=== PATIENT | female | born 1950 | race Caucasian/White ===

== ENCOUNTER → 2017-01-28 | Outpatient (CLI) | payer BC ==
--- NOTE | 2017-01-29 07:38 | MAMMOGRAPHY REPORT ---
BILATERAL DIGITAL SCREENING MAMMOGRAM TOMOSYNTHESIS WITH CAD: 01/28/2017 CLINICAL HISTORY: Routine screening. Patient has no complaints. TECHNIQUE: Breast tomosynthesis in addition to standard 2D mammography was performed. Current study was also evaluated with a Computer Aided Detection (CAD) system. COMPARISON: Comparison is made to exams dated: 12/07/2015 mammogram, 07/20/2013 mammogram, 08/09/2014 mammogram, 07/16/2012 mammogram, 07/15/2011 mammogram, and 07/13/2010 mammogram - [facility]. BREAST COMPOSITION: The tissue of both breasts is heterogeneously dense, which may obscure small ma sses. FINDINGS: There is evidence of prior surgery within each breast, with multiple surgical clips seen b ilaterally. There is expected architectural distortion at the site of prior surgery within the retr oareolar and central right breast, and upper outer posterior left breast. There are benign appearin g coarse calcifications bilaterally. No new suspicious mass, architectural distortion or cluster of microcalcifications is seen. IMPRESSION: ACR BI-RADS CATEGORY 1: NEGATIVE There is no mammographic evidence of malignancy. A 1 year screening mammogram is recommended. The p atient will receive written notification of the results. Approximately 10% of breast cancers are not detected with mammography. A negative mammographic repor t should not delay biopsy if a clinically suggestive mass is present. Naida Monte M.D. ay/:01/28/2017 17:46:12 Medical Malpractice Paralegal: Janet RICHARD(Lois)(Shiraz), [facility] letter sent: Normal 1/2 BI-RADS Code: ACR BI-RADS Category 1: Negative
== END | disposition home or self-care (01) ==
LOC: C.MAMM 09:51
PROVIDERS: ATTEND Internal Medicine
DX: Z12.31 Encounter for screening mammogram for malignant neoplasm of breast (principal); Z85.3 Personal history of malignant neoplasm of breast

== ENCOUNTER 2022-01-06 13:00 | Inpatient (IN) ==
[2022-01-06] MEDS ORDERED: ONDANSETRON INJ 2 MG/ML 2 ML VIAL IV STA (13:12)
[2022-01-06] MEDS: HYDROmorphone INJ 0.5 MG/0.5 ML SYR IV PRN ×2 (13:37→14:33)
[2022-01-06 13:47] LABS: Basophils # (auto) 0.04 K/uL (0-0.2); Basophils % (auto) 0.3 %; Eosinophils # (auto) 0.29 K/uL (0-0.5); Eosinophils % (auto) 2.3 %; Hematocrit (blood only) 40.3 % (37-47); Hemoglobin 14.1 g/dL (12.0-16.0); Immature Granulocytes # (auto) 0.11 K/uL (0.00-0.02); Immature Granulocytes % (auto) 0.9 %; Lymphocytes # (auto) 0.92 K/uL (1.2-3.4); Lymphocytes % (auto) 7.2 %; Mean Corpuscular Hemoglobin 37.5 pg (25-34); Mean Corpuscular Volume 107.2 fL (80-100); Mean Platelet Volume 10.1 fL (7.4-10.4); Monocytes # (auto) 0.96 K/uL (0.11-0.59); Monocytes % (auto) 7.5 %; Neutrophils # (auto) 10.49 K/uL (1.4-6.5); Neutrophils % (auto) 81.8 %; Platelet Count 402 K/uL (130-400); RDW Coefficient of Variation 14.3 % (11.5-14.5); RDW Standard Deviation 56.2 fL (36.4-46.3); Red Blood Count 3.76 M/uL (4.2-5.4); White Blood Count 12.81 K/uL (4.8-10.8)
[2022-01-06 14:05] LABS: Albumin Globulin Ratio 1.2 (0.9-2); Albumin Level 3.7 gm/dl (3.4-5.0); BUN Creatinine Ratio 20.5 (10-20); Bilirubin,Total 0.8 mg/dl (0.2-1.0); C Reactive Protein 12.04 mg/dl (0-0.5); Calcium 9.1 mg/dl (8.5-10.1); Creatinine Clr Calc Pharmacy 80.1 ml/min; Est GFR (African American) 83.4 ml/min; Est GFR (Non-African American) 71.9 ml/min; Globulin 3.2 gm/dl (2.5-4.0); Potassium 2.8 mmol/L (3.5-5.1); Total Protein 6.9 gm/dl (6.0-8.3)
--- NOTE | 2022-01-06 14:05 | CT Scan Report ---
CT lumbar spine wo con CLINICAL HISTORY: Back Pain, right sciatica TECHNIQUE: Multidetector row helical CT of the lumbar spine was performed without administration of i ntravenous contrast. Coronal and sagittal reformations were obtained. Automated dose lowering techniq ues and/or adjustment according to patient size were utilized for this exam. Comparison: None available at the time of this dictation. FINDINGS: For counting purposes, the last complete intervertebral disc space is considered L5-S1. There is an erosive lesion in the sacrum, predominantly in the left sacrum, with a soft tissue mass i nvading the spinal canal. There is a fracture of the right transverse process of L5 as well as appare nt fractures of the bilateral sacral alar. There is mottling of the adjacent iliac bones as well. Deg enerative changes are noted in the visualized spine. Vertebral body alignment is within normal limits . IMPRESSION: There is a large soft tissue mass arising from the sacrum with invasion of the spinal canal. There ap pears to also be involvement of the adjacent iliac bone. There are fractures of the right T5 vertebra l body and bilateral sacral alar, which may represent pathologic fractures. ACT 112: Negative or not required by law. Electronically signed by: Joseph Longoria M.D. 01/06/2022 2:04 PM
--- NOTE | 2022-01-06 14:37 | XRay Report ---
XR femur RT 2V routine CLINICAL HISTORY: non-traumatic mid femur pain, cant walk TECHNIQUE: 2 radiographic views of the right femur were obtained. Comparison: None available at the time of this dictation. FINDINGS: There is no evidence for fracture, subluxation or dislocation. There is normal anatomic alignment of the bones. Degenerative changes are seen in the hip and knee joints. There is normal bone mineralizat ion. The soft tissues are unremarkable. IMPRESSION: Degenerative changes without evidence of acute bony injury. ACT 112: Negative or not required by law. Electronically signed by: Joseph Longoria M.D. 01/06/2022 2:36 PM
[2022-01-06 14:47] LABS: Appearance Urine Cloudy (Clear); Bacteria Urine Automated 1+ (Negative); Blood Urine 1+ (Negative); Color Urine Dark Yellow; Epithelial Cell Urine Auto >30 /lpf (0-5); Glucose Urine UA Negative (Negative); Ketones Urine 1+ (Negative); Leukocyte Esterase Urine Trace (Negative); Nitrite Urine Negative (Negative); Protein Urine 1+ (Negative); Specific Gravity Urine 1.031 (1.000-1.030); Urobilinogen Urine Negative (Negative)
[2022-01-06 14:51] LABS: Bilirubin Urine 2+ (Negative)
[2022-01-06 15:04] LABS: Cast Urine Automated 0 /lpf (0-5); RBC Urine Automated 0-4 /hpf (0-4); Renal Epithelial Cells Urine 0-5 /lpf (0-5)
[2022-01-06] MEDS ORDERED: cefTRIAXone SODIUM 2,000 MG/70 ML BAG IV STA (15:55)
[2022-01-06] MEDS ORDERED: bisacodyL 10 MG SUPP PR PRN (17:09)
[2022-01-06] MEDS ORDERED: ONDANSETRON INJ 2 MG/ML 2 ML VIAL IV PRN (17:09)
[2022-01-06] MEDS ORDERED: NALOXONE HCL 0.4 MG/1 ML VIAL/CARP IV PRN (17:09)
[2022-01-06] MEDS ORDERED: MAGNESIUM HYDROXIDE SUSP 30 ML UDC PO PRN (17:09)
--- NOTE | 2022-01-06 17:57 | Emergency Department Note ---
Impression & Plan Pathological fracture of pelvis, Pathological fracture of lumbosacral spine, Acute UTI (urinary tract infection), Leukocytosis, History of breast cancer ED Provider Note INFORMANT: Patient ED PROVIDER(S): Oni Church MD CHIEF COMPLAINT: Right leg pain PLAN: Disposition: Admitted Condition: Good Outpatient prescription management: none Referral: None MEDICAL DECISION MAKING: Patient presented because of concerns about sciatica. She was having difficulty walking. She had no saddle anesthesia. With the positive right straight leg raise imaging was ordered. She had CT imaging performed of the lumbar spine and there were concerns for possible pathologic erosion and fracture. The patient does have a history of breast cancer. She was treated with Dilaudid and felt much better with this. She has findings concerning for UTI and has a mild leukocytosis. Rocephin was ordered. I did discuss the possibility of cancer with the patient. Further management in the hospital will be necessary. [facility]. Patient was evalu ated in the ER and admitted for further management. Triage Nursing notes reviewed and agree them. Vital Signs: reviewed and remarkable for no significant abnormalities Differential diagnosis: Musculoskeletal, disc herniation, fracture, metastatic disease, cord compression, discitis, sciatica, cauda equina, infection, aortic disease, renal colic, gastrointestinal, as well as other pathologies. Diagnostics interpreted by me: ECG: none Cardiac Monitoring: Cardiac monitoring ordered by me: The patient was placed on continuous cardiac monitoring and observed. It revealed a normal sinus rhythm at 85beats per minute without ectopy or evidence of dysrhythmia. Imaging studies: CT scan as noted below. HPI: The patient is a 71 year old female who presents to the Emergency Room with complaints of right-sided leg pain. This started over the last week and is worsening to the point that she cannot walk. EMS was summoned. The patient also notes the following associated symptoms, urinary frequency. The patient has found no relieving factors. Patient was prescribed an anti-inflammatory and then hydrocodone by PCP but this was not helping. Current pain is rated as 10/10. No trauma.Pt denies LOC, headache, fevers, chills, diaphoresis, visual changes, neck pain, chest pain, breathing difficulties, nausea, vomiting, abdominal pain, back pain melena, hematochezia, numbness, lymphadenopathy, rash , or other complaints. ROS: See above HPI for pertinent positives & negatives. A total of 10 systems reviewed and were otherwise negative. PAST MEDICAL HISTORY:See Below , breast cancer PAST SURGICAL HISTORY:See Below, FAMILY HISTORY:See Below SOCIAL HISTORY:See Below, lives with son HOME MEDICATIONS:See Below ALLERGIES:See Below VITALS:See Below PHYSICAL EXAMINATION: GENERAL: Awake, alert, uncomfortable-appearing, in no distress HENT: Normocephalic, atraumatic. Oropharynx unremarkable. EYES: Normal conjunctiva. Sclera non-icteric. NECK: Inspection normal. Non-tender. Supple. No nuchal rigidity. FROM. No masses. RESPIRATORY: Clear to auscultation. No wheezes. No rales. Normal respiratory effort. CARDIAC: Normal rate. Normal rhythm. No murmurs. No rubs. Extremities warm and well perfused. Pulses equal. No JVD. GI: Soft, non-distended. No tenderness to palpation. No rebound or guarding. No masses. RECTAL: Deferred. MUSCULOSKELETAL: Atraumatic. Chest examination reveals no tenderness. The back is symmetrical on inspection without obvious abnormality. There is no CVA tenderness to palpation. No joint edema. Mild tenderness of the posterior right thigh. Decent range of motion of the right hip. LOWER EXTREMITIES: Calves are equal size bilaterally and non-tender. No edema. No discoloration. NEURO: Normal sensorium. No sensory or motor deficits noted. Positive right straight leg raise. No saddle anesthesia. SKIN: No rash or jaundice noted. 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 Feels Safe at Home: Yes Seatbelt Use: always Sunscreen Use: Yes Assistive Devices: Glasses Allergies Allergies Allergy/AdvReac Type Severity Reaction Status Date / Time No Known Allergies Allergy Unknown Verified 01/06/22 15:04 Home Meds Home Medications Medication Instructions Recorded Confirmed cholecalciferol (vitamin D3) 50 50 mcg PO QAM 01/06/22 01/06/22 mcg (2,000 unit) capsule metformin 500 mg tablet 500 mg PO QAM 01/06/22 01/06/22 rosuvastatin 5 mg tablet 5 mg PO QAM 01/06/22 01/06/22 Previous Rx's Medication Instructions Recorded omeprazole 20 mg capsule,delayed 20 mg PO QAM #90 cap 03/12/21 release losartan 100 mg tablet 100 mg PO QAM #90 tab 03/28/21 metoprolol succinate 100 mg 100 mg PO QAM #30 tab 06/19/21 tablet,extended release 24 hr clonazepam 0.5 mg tablet 0.5 mg PO UD PRN #90 tab 01/03/22 hydrocodone 5 mg-acetaminophen 325 See Rx Instructions PO Q6H PRN #40 01/03/22 mg tablet tab Results & Data (ED) Vital Signs Vital Signs - 24 hr 01/06/22 13:06 01/06/22 13:14 01/06/22 13:30 Temperature 36.5 C Temperature Source Oral Pulse Rate 100 H 93 H 99 H Pulse Rate [Right Radial] Pulse Rate from SpO2 Sensor 93 H 99 H Pulse Rhythm [Right Radial] Pulse Strength [Right Radial] Respiratory Rate 22 16 18 Respiratory Effort / Characteristics Non-Labored Respiratory Depth Normal Blood Pressure 179/109 H 163/95 H Blood Pressure [Left Arm] Blood Pressure [Right Arm] Blood Pressure Mean 132 117 Blood Pressure Mean [Left Arm] Blood Pressure Mean [Right Arm] Blood Pressure Position Lying Pulse Oximetry 98 96 98 Oxygen Delivery Method Room Air Sepsis Recent Fever Within 48 Hours No Sepsis New/Unexplained Change in Mental Status No Sepsis Action Taken by Nursing No Action Required 01/06/22 14:30 01/06/22 14:31 01/06/22 14:42 Temperature Temperature Source Pulse Rate 102 H Pulse Rate [Right Radial] Pulse Rate from SpO2 Sensor 103 H 102 H Pulse Rhythm [Right Radial] Pulse Strength [Right Radial] Respiratory Rate 21 Respiratory Effort / Characteristics Respiratory Depth Blood Pressure 158/113 H Blood Pressure [Left Arm] Blood Pressure [Right Arm] Blood Pressure Mean 128 Blood Pressure Mean [Left Arm] Blood Pressure Mean [Right Arm] Blood Pressure Position Pulse Oximetry 99 95 98 Oxygen Delivery Method Room Air Sepsis Recent Fever Within 48 Hours Sepsis New/Unexplained Change in Mental Status Sepsis Action Taken by Nursing 01/06/22 15:00 01/06/22 16:24 Temperature 36.4 C L 36.8 C Temperature Source Oral Oral Pulse Rate Pulse Rate [Right Radial] 89 85 Pulse Rate from SpO2 Sensor Pulse Rhythm [Right Radial] Regular Pulse Strength [Right Radial] Normal Respiratory Rate 20 18 Respiratory Effort / Characteristics Non-Labored Non-Labored Respiratory Depth Normal Normal Blood Pressure Blood Pressure [Left Arm] 137/75 Blood Pressure [Right Arm] 136/79 Blood Pressure Mean Blood Pressure Mean [Left Arm] 95 Blood Pressure Mean [Right Arm] 98 Blood Pressure Position Pulse Oximetry 97 98 Oxygen Delivery Method Room Air Room Air Sepsis Recent Fever Within 48 Hours Sepsis New/Unexplained Change in Mental Status Sepsis Action Taken by Nursing Laboratory Data Result diagrams: 01/06/22 13:39 01/06/22 13:39 Lab Results 01/06/22 01/06/22 01/06/22 Range/Units 13:39 13:39 13:39 WBC 12.81 H (4.8-10.8) K/uL RBC 3.76 L (4.2-5.4) M/uL Hgb 14.1 (12.0-16.0) g/dL Hct 40.3 (37-47) % MCV 107.2 H (80-100) fL MCH 37.5 H (25-34) pg MCHC 35.0 (32-36) g/dL RDW Std Deviation 56.2 H (36.4-46.3) fL RDW Coeff of Cheri 14.3 (11.5-14.5) % Plt Count 402 H (130-400) K/uL MPV 10.1 (7.4-10.4) fL Immature Gran % (Auto) 0.9 % Neut % (Auto) 81.8 % Lymph % (Auto) 7.2 % [place] % (Auto) 7.5 % Eos % (Auto) 2.3 % Baso % (Auto) 0.3 % Neut # (Auto) 10.49 H (1.4-6.5) K/uL Lymph # (Auto) 0.92 L (1.2-3.4) K/uL [place] # (Auto) 0.96 H (0.11-0.59) K/uL Eos # (Auto) 0.29 (0-0.5) K/uL Baso # (Auto) 0.04 (0-0.2) K/uL Immature Gran # (Auto) 0.11 H (0.00-0.02) K/uL ESR 40 H (0-30) mm/hr Sodium 139 (136-145) mmol/L Potassium 2.8 L (3.5-5.1) mmol/L Chloride 101 (98-107) mmol/L Carbon Dioxide 26 (21-32) mmol/L Anion Gap 12 H (3-11) BUN 17 (6-23) mg/dl Creatinine 0.83 (0.6-1.2) mg/dl Est Cr Clr Drug Dosing 80.1 ml/min Est GFR ( Amer) 83.4 ml/min Est GFR (Non-Af Amer) 71.9 ml/min BUN/Creatinine Ratio 20.5 H (10-20) Glucose 94 (70-99(Fasting)) mg/dl Calcium 9.1 (8.5-10.1) mg/dl Total Bilirubin 0.8 (0.2-1.0) mg/dl AST 18 (13-39) U/L ALT 11 (7-52) U/L Alkaline Phosphatase 128 H (34-104) U/L C-Reactive Protein 12.04 H (0-0.5) mg/dl Total Protein 6.9 (6.0-8.3) gm/dl Albumin 3.7 (3.4-5.0) gm/dl Globulin 3.2 (2.5-4.0) gm/dl Albumin/Globulin Ratio 1.2 (0.9-2) Urine Color Urine Appearance (Clear) Urine pH (4.5-7.5) Ur Specific [place] (1.000-1.030) Urine Protein (Negative) Urine Glucose (UA) (Negative) Urine Ketones (Negative) Urine Blood (Negative) Urine Nitrite (Negative) Urine Bilirubin (Negative) Urine Urobilinogen (Negative) Ur Leukocyte Esterase (Negative) Urine WBC (Auto) (0-5) /hpf Urine RBC (Auto) (0-4) /hpf U Hyaline Cast (Auto) (0-5) /lpf U Epithel Cells (Auto) (0-5) /lpf Urine Bacteria (Auto) (Negative) Ur Renal Epithelial Cell (0-5) /lpf Urine Yeast (None Prsent) 01/06/22 Range/Units 14:30 WBC (4.8-10.8) K/uL RBC (4.2-5.4) M/uL Hgb (12.0-16.0) g/dL Hct (37-47) % MCV (80-100) fL MCH (25-34) pg MCHC (32-36) g/dL RDW Std Deviation (36.4-46.3) fL RDW Coeff of Cheri (11.5-14.5) % Plt Count (130-400) K/uL MPV (7.4-10.4) fL Immature Gran % (Auto) % Neut % (Auto) % Lymph % (Auto) % [place] % (Auto) % Eos % (Auto) % Baso % (Auto) % Neut # (Auto) (1.4-6.5) K/uL Lymph # (Auto) (1.2-3.4) K/uL [place] # (Auto) (0.11-0.59) K/uL Eos # (Auto) (0-0.5) K/uL Baso # (Auto) (0-0.2) K/uL Immature Gran # (Auto) (0.00-0.02) K/uL ESR (0-30) mm/hr Sodium (136-145) mmol/L Potassium (3.5-5.1) mmol/L Chloride (98-107) mmol/L Carbon Dioxide (21-32) mmol/L Anion Gap (3-11) BUN (6-23) mg/dl Creatinine (0.6-1.2) mg/dl Est Cr Clr Drug Dosing ml/min Est GFR ( Amer) ml/min Est GFR (Non-Af Amer) ml/min BUN/Creatinine Ratio (10-20) Glucose (70-99(Fasting)) mg/dl Calcium (8.5-10.1) mg/dl Total Bilirubin (0.2-1.0) mg/dl AST (13-39) U/L ALT (7-52) U/L Alkaline Phosphatase (34-104) U/L C-Reactive Protein (0-0.5) mg/dl Total Protein (6.0-8.3) gm/dl Albumin (3.4-5.0) gm/dl Globulin (2.5-4.0) gm/dl Albumin/Globulin Ratio (0.9-2) Urine Color Dark Yellow Urine Appearance Cloudy A (Clear) Urine pH 5.0 (4.5-7.5) Ur Specific [place] 1.031 H (1.000-1.030) Urine Protein 1+ H (Negative) Urine Glucose (UA) Negative (Negative) Urine Ketones 1+ H (Negative) Urine Blood 1+ H (Negative) Urine Nitrite Negative (Negative) Urine Bilirubin 2+ H (Negative) Urine Urobilinogen Negative (Negative) Ur Leukocyte Esterase Trace H (Negative) Urine WBC (Auto) 5-10 H (0-5) /hpf Urine RBC (Auto) 0-4 (0-4) /hpf U Hyaline Cast (Auto) 0 (0-5) /lpf U Epithel Cells (Auto) >30 H (0-5) /lpf Urine Bacteria (Auto) 1+ H (Negative) Ur Renal Epithelial Cell 0-5 (0-5) /lpf Urine Yeast Present A (None Prsent) Administered Medications Oxycodone HCl (Oxycodone Hcl Ir 5 Mg Tab (Immediate Release)) 10 mg PO Q4H PRN PRN Reason: SEVERE Pain (7,8,9,10) Stop: 01/20/22 18:38 Last Admin: 01/06/22 19:30 Dose: 10 mg Documented by: [id number] Discontinued Medications Hydromorphone HCl (Hydromorphone Inj 0.5 Mg/0.5 Ml Syr) 0.5 mg IV Q15M PRN PRN Reason: Pain Stop: 01/20/22 13:11 Last Admin: 01/06/22 14:33 Dose: 0.5 mg Documented by: [id number] Admin: 01/06/22 13:37 Dose: 0.5 mg Documented by: [id number] Ceftriaxone Sodium (Rocephin) 2,000 mg in 70 mls @ 140 mls/hr IV NOW STA Stop: 01/06/22 16:24 Last Infusion: 01/06/22 19:29 Dose: 0 mls/hr Documented by: [id number] Admin: 01/06/22 17:49 Dose: 140 mls/hr Documented by: [id number] Ondansetron HCl (Ondansetron Inj 2 Mg/Ml 2 Ml Vial) 4 mg IV NOW STA Stop: 01/06/22 13:13 Last Admin: 01/06/22 13:37 Dose: 4 mg Documented by: [id number] Imaging Data Radiologist's Impression: Femur X-Ray 01/06/22 13:12 XR femur RT 2V routine CLINICAL HISTORY: non-traumatic mid femur pain, cant walk TECHNIQUE: 2 radiographic views of the right femur were obtained. Comparison: None available at the time of this dictation. FINDINGS: There is no evidence for fracture, subluxation or dislocation. There is normal anatomic alignment of the bones. Degenerative changes are seen in the hip and knee joints. There is normal bone mineralization. The soft tissues are unremarkable. IMPRESSION: Degenerative changes without evidence of acute bony injury. ACT 112: Negative or not required by law. Electronically signed by: Joseph Longoria M.D. 01/06/2022 2:[address] 01/06/22 13:13 CT lumbar spine wo con CLINICAL HISTORY: Back Pain, right sciatica TECHNIQUE: Multidetector row helical CT of the lumbar spine was performed without administration of intravenous contrast. Coronal and sagittal reformations were obtained. Automated dose lowering techniques and/or adjustment according to patient size were utilized for this exam. Comparison: None available at the time of this dictation. FINDINGS: For counting purposes, the last complete intervertebral disc space is considered L5-S1. There is an erosive lesion in the sacrum, predominantly in the left sacrum, with a soft tissue mass invading the spinal canal. There is a fracture of the right transverse process of L5 as well as apparent fractures of the bilateral sacral alar. There is mottling of the adjacent iliac bones as well. Degenerative changes are noted in the visualized spine. Vertebral body alignment is within normal limits. IMPRESSION: There is a large soft tissue mass arising from the sacrum with invasion of the spinal canal. There appears to also be involvement of the adjacent iliac bone. There are fractures of the right T5 vertebral body and bilateral sacral alar, which may represent pathologic fractures. ACT 112: Negative or not required by law. Electronically signed by: Joseph Longoria M.D. 01/06/2022 2:04 PM Discharge Plan Visit Data Chief Complaint: Hip Pain ED Provider: Oni Church Discharge Problem: Pathological fracture of pelvis, Pathological fracture of lumbosacral spine, Acute UTI (urinary tract infection), Leukocytosis, History of breast cancer Patient Disposition: Admitted As Inpatient Discharge Instructions Interventions: ED Discharge Assessment Last Done: 01/06/22 18:48
--- NOTE | 2022-01-06 18:21 | History & Physical Report ---
Date of Service January 06, 2022 Assessment & Plan (1) Pathological fracture of pelvis: Plan: 71 yo F w/ pMHx. of DM, HTN, HLD, Diverticulitis presenting with right hip pain, numbness and weakness without bladder or bowel incontinence, or fevers found to have a mass involving her sacrum, ilium, spinal canal along with pathologic fracture at T6. Mass involving spinal canal, likely cause of progressive right hip pain, right leg numbness - pain control with Tylenol PRN, Oxycodone PO PRN utilizing pain scale protocol; miralax PRN - Dexamethasone 4mg IV now - consulted ortho spine appreciate recs. - reviewed case with PA for spine and Dr. 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 DM II - A1c ordered - holding oral agents - placed pharmacy glycemic consult given steroid use HTN normotensive currently - continue home Metoprolol - continue home losartan HLD - continue rosuvastatin Reflux, and steroid use - continue Omeprazole UA with epithelial cells and no dysuria or urgency - likely contaminant vs. asymptomatic bacteruria - follow symptoms and culture leukocytosis, afebrile normal HR - likely elevated in the setting of steroid use prior to admission DVT: holding chemoprophylaxis prior to ortho evaluation Diet: DMII Code: full (2) Pathological fracture of lumbosacral spine: (3) History of breast cancer: (4) Vitamin D deficiency: (5) Hypertension: (6) Depression with anxiety: (7) Hyperlipidemia: (8) Type II diabetes mellitus: (9) Mild mitral valve prolapse: (10) History of bilateral breast cancer: (11) Diverticulitis: (12) Seasonal allergies: (13) Acid reflux: History of Present Illness Chief Complaint: Right hip pain Primary Care Provider: MARKUS Cabezas Harmony James is here for right hip pain that started one week prior. She has a prior history of DM, HTN, Diverticulitis and HLD along with breast cancer in 2002 s/p lumpectomy, chemotherapy and radiation therapy. Her pain has been severe and progressive 1/10 when laying still and 10/10 pain when she moves. The pain is at the at her lower hip and top of her right thigh. This feels similar to when she had sciatica in the past. The pain radiates to her right leg. She had called her PCP and was prescribed prednisone, hydrocodone and Voltaren with no improvement. She saw a chiropractor 2 days prior who recommended ice, and had no improvement with this. She has an extensive smoking history and no family history of cancer. She is not UTD on pap smears, her last menstruation was in 2002 prior to starting chemotherapy. Allergies Allergy/AdvReac Type Severity Reaction Status Date / Time No Known Allergies Allergy Unknown Verified 01/06/22 15:04 Home Medications Medication Instructions Recorded Confirmed Type omeprazole 20 mg capsule,delayed 20 mg PO QAM #90 cap 03/12/21 01/06/22 Rx release losartan 100 mg tablet 100 mg PO QAM #90 tab 03/28/21 01/06/22 Rx metoprolol succinate 100 mg 100 mg PO QAM #30 tab 06/19/21 01/06/22 Rx tablet,extended release 24 hr clonazepam 0.5 mg tablet 0.5 mg PO UD PRN #90 tab 01/03/22 01/06/22 Rx hydrocodone 5 mg-acetaminophen 325 See Rx Instructions PO Q6H PRN #40 01/03/22 01/06/22 Rx mg tablet tab cholecalciferol (vitamin D3) 50 50 mcg PO QAM 01/06/22 01/06/22 History mcg (2,000 unit) capsule metformin 500 mg tablet 500 mg PO QAM 01/06/22 01/06/22 History rosuvastatin 5 mg tablet 5 mg PO QAM 01/06/22 01/06/22 History Past Med/Surg History Medical History Bilateral breast cancer [id number]--sx/chemo/radiation Depression with anxiety Diverticular disease Hyperlipidemia Hypertension Mild mitral valve prolapse hx of; 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 Feels Safe at Home: Yes Safety Concerns: Feels Safe At This Time Seatbelt Use: always Sunscreen Use: Yes Assistive Devices: None Review of Systems Review of Systems: Constitutional: denies fevers, chills, fatigue, vomiting, diaphoresis, weight loss admits night sweats Head: denies trauma, LOC, lightheadedness Neurologic: admits presyncope, tingling ENT: Denies rhinorrhea, stuffiness Cardiac: denies chest pain, palpitations, leg edema Pulm.: denies cough, shortness of breath, trouble breathing Heme: denies easy bruising GI: denies diarrhea, constipation : denies urgency, dysuria admits frequency MSK: admits pain Physical Exam Constitutional: WD/WN, vitals as above Eyes: PERRL, conjunctivae normal, anicteric sclerae ENMT: external ear and nose normal, oropharynx normal Neck: normal visual inspection Respiratory: normal respiratory effort, lungs clear to auscultation Cardiovascular: RRR, no murmur, no edema Gastrointestinal (Abdomen): normal bowel sounds, soft, nontender, no hepatosplenomegaly Musculoskeletal: - tender over the right hip/buttock leading to tenderness down the right leg - negative log roll - positive straight leg at 20 degrees - sensation intact to light touch in lower extremity of right - 5/5 strength in dorsiflexion, plantarflexion - decreased strength on hip flexion 2/2 pain Skin: no rashes, warm and dry Neurologic: awake Speech / Cognition: normal speech Motor/Sensory: no tremor Psychiatric: Orientation: alert Eye Contact: good eye contact Speech: normal rate/rhythm/volume of speech Affect: euthymic affect Thought Process: goal directed thought process Results & Data Results & Data ([facility]) Vital Signs (Past 12 Hours) Vital Signs Temp Pulse Pulse Resp BP BP Pulse Ox 01/06/22 15:00 36.4 C L 89 20 136/79 97 01/06/22 14:42 98 01/06/22 14:31 102 H 21 158/113 H 95 01/06/22 14:30 99 01/06/22 13:30 99 H 18 163/95 H 98 01/06/22 13:14 93 H 16 96 01/06/22 13:06 36.5 C 100 H 22 179/109 H 98 CBC Results Results Complete Blood Count Results: RBC 3.44 M/uL (4.2-5.4) L 01/07/22 WBC 12.73 K/uL (4.8-10.8) H 01/07/22 Hgb 13.3 g/dL (12.0-16.0) 01/07/22 Hct 37.0 % (37-47) 01/07/22 Plt Count 395 K/uL (130-400) 01/07/22 Chemistry ([facility]) Results [facility] Results: Sodium 140 mmol/L (136-145) 01/07/22 Potassium 4.0 mmol/L (3.5-5.1) 01/07/22 Chloride 102 mmol/L (98-107) 01/07/22 Carbon Dioxide 31 mmol/L (21-32) 01/07/22 Anion Gap 7 (3-11) 01/07/22 BUN 16 mg/dl (6-23) 01/07/22 Creatinine 0.85 mg/dl (0.6-1.2) 01/07/22 Glucose 110 mg/dl (70-99(Fasting)) H 01/07/22 Code Status & VTE Plan VTE Prophylaxis Plan VTE Prophylaxis will be ordered: Yes Supervising Physician Co-Signing Physician Notes Resident Physician Supervision Note: I independently interviewed and examined the patient and verified the steiner history and physical, reviewed labs and image studies and agree with resident Dr. Hook findings and care plan. Resident Activity Tracking Resident Involvement: Resident Care Provided Care Provided: Adult Hospital Medicine
[2022-01-06] MEDS ORDERED: clonazePAM 0.5 MG TAB PO PRN (18:39)
[2022-01-06] MEDS ORDERED: PHARMACY GLYCEMIC MGMT CONSULT PRN (18:39)
[2022-01-06] MEDS ORDERED: oxyCODONE HCL IR 5 MG TAB (IMMEDIATE RELEASE) PO PRN (18:39)
[2022-01-06] MEDS ORDERED: INSULIN HUMAN NPH SC ONE (19:00)
[2022-01-06] MEDS ORDERED: CARBOHYDRATES FOR HYPOGLYCEMIA PO PRN (19:00)
[2022-01-06] MEDS ORDERED: GLUCOSE 10 TABS/TUBE PO PRN (19:00)
[2022-01-06] MEDS ORDERED: GLUCOSE 40% GEL 15 GM TUBE PO PRN (19:00)
[2022-01-06] MEDS ORDERED: DEXTROSE 50% 50 ML SYRINGE IV PRN (19:00)
[2022-01-06] MEDS ORDERED: dexAMETHasone 4 MG in SYRINGE 0 ML IV ONE (19:00)
[2022-01-06] MEDS ORDERED: GLUCAGON FOR INJ 1 MG VIAL IM PRN (19:00)
[2022-01-06] MEDS: oxyCODONE HCL IR 5 MG TAB (IMMEDIATE RELEASE) PO PRN (19:30)
[2022-01-06] MEDS ORDERED: POTASSIUM CHLORIDE CRTAB 20 MEQ TABCR PO STA (19:33)
[2022-01-06] MEDS ORDERED: DEXAMETHASONE SOD INJ 4 MG/ML VIAL ONE (20:33)
[2022-01-06] MEDS ORDERED: ENOXAPARIN INJ 40 MG/0.4 ML SYR SQ SCH (21:00)
[2022-01-06] MEDS: INSULIN ASPART PER UNIT SC SCH ×2 (21:34→23:09)
[2022-01-06] MEDS: DOCUSATE SODIUM/SENNA 50/8.6MG TAB PO SCH (22:15)
[2022-01-07] MEDS ORDERED: TRANEXAMIC ACID / 0.7% NACL 1,000 MG/100 ML BAG IV SCH ×2 (06:00→06:30)
--- NOTE | 2022-01-07 07:28 | Medical Student Progress Note ---
Date of Service January 07, 2022 Assessment & Plan (1) Pathological fracture of lumbosacral spine: Plan: This is a 71 year old female with a history of T2DM, HTN, and breast cancer in 2002 s/p lumpectomy, chemo, and radiation therapy who presented for worsening R hip pain, found to have a sacral mass with fractures of the right T5 vertebral body and sacral ala on imaging. Right hip pain, likely secondary to new sacral mass and pathological vertebral and sacral fractures - pain well-controlled on dexamethasone, tylenol prn, oxycodone prn - ortho consulted - venous doppler 01/07 shows no evidence of DVT - NPO in anticipation of surgery - likely needs MRI New sacral mass on CT - concerning for malignancy in setting of smoking history and breast CA history - consider biopsy - waiting ortho recs as above - MRI potentially needed for surgical eval as above, may clarify mass - Chest CT in setting of smoking history Hypomagnesemia - Mg 1.7 - 64 mg Magnesium chloride - recheck in AM Low folate - in the setting of MCV 107.6 - Hgb 13.3, no anemic symptoms - replete Hypokalemia, resolved - 4.0 s/p 40 mEq KCl - 2.8 on admission - recheck in AM Chronic medical conditions T2DM: hold home HTN: continue home metoprolol and losartan HLD: continue home rosuvastatin GERD: continue home omeprazole DM II - A1c ordered - holding oral agents - placed pharmacy glycemic consult given steroid use UA with epithelial cells and no dysuria or urgency - likely contaminant vs. asymptomatic bacteruria - follow symptoms and culture DVT: holding chemoprophylaxis prior to ortho evaluation Diet: NPO Code: full (2) Pathological fracture of pelvis: (3) History of breast cancer: (4) Type II diabetes mellitus: (5) Hypertension: (6) Hyperlipidemia: Admission and Anticipated Discharge Date Admission Date: January 06, 2022 Supervising Attestation Resident attestation- I have separately interviewed and examined the patient, and discussed the case with MS4 Radha Pandey. I agree with her findings and care plan as above. Subjective Feels "ok" this morning. Pain not bothering her. Discussed her feelings about this new finding of sacral mass on CT. Review of Systems Review of Systems: per HPI Physical Exam Constitutional: WD/WN, vitals as above no acute distress Respiratory: normal respiratory effort, lungs clear to auscultation Cardiovascular: RRR, no murmur, no edema Results & Data ([facility]) Vital Signs (Past 12 Hours) Vital Signs Temp Pulse Pulse Pulse Resp BP BP 01/07/22 07:22 36.7 C 80 16 147/86 H 01/07/22 02:48 36.9 C 82 16 150/99 H 01/06/22 23:35 36.9 C 78 20 163/99 H 146/100 H 01/06/22 23:33 99 H 01/06/22 23:23 36.9 C 89 20 163/99 H 01/06/22 22:15 36.9 C 78 20 163/99 H 146/100 H Pulse Ox 01/07/22 07:22 94 01/07/22 02:48 97 01/06/22 23:35 94 01/06/22 23:33 01/06/22 23:23 91 01/06/22 22:15 94 Resident Activity Tracking Resident Involvement: Resident Care Provided Care Provided: Adult Hospital Medicine
[2022-01-07 08:11] LABS: Basophils # (auto) 0.02 K/uL (0-0.2); Basophils % (auto) 0.2 %; Eosinophils # (auto) 0.04 K/uL (0-0.5); Eosinophils % (auto) 0.3 %; Hemoglobin 13.3 g/dL (12.0-16.0); Immature Granulocytes # (auto) 0.12 K/uL (0.00-0.02); Immature Granulocytes % (auto) 0.9 %; Lymphocytes % (auto) 7.9 %; Mean Corpuscular Hemoglobin 38.7 pg (25-34); Mean Corpuscular Hgb Conc 35.9 g/dL (32-36); Mean Corpuscular Volume 107.6 fL (80-100); Mean Platelet Volume 10.2 fL (7.4-10.4); Monocytes # (auto) 0.85 K/uL (0.11-0.59); Monocytes % (auto) 6.7 %; Platelet Count 395 K/uL (130-400); RDW Coefficient of Variation 14.4 % (11.5-14.5); RDW Standard Deviation 56.7 fL (36.4-46.3); Red Blood Count 3.44 M/uL (4.2-5.4); White Blood Count 12.73 K/uL (4.8-10.8)
--- NOTE | 2022-01-07 08:17 | Ultrasound Report ---
US venous doppler LE BI CLINICAL HISTORY: leg pain COMPARISON: None available at the time of this dictation. TECHNIQUE: Bilateral lower extremity real-time compression venous ultrasound with Color Doppler imagi ng. Utilizing real-time ultrasonic imaging multiple real time high-resolution ultrasonic images with comp ression and noncompression maneuvers of the deep venous system in addition to color doppler imaging w ere performed from the common femoral vein through the proximal calf veins. FINDINGS: Currently there is normal compressibility of the deep venous system from the common femoral vein thro ugh the proximal calf veins. No current evidence of acute thrombosis is identified. Impression: No evidence of deep venous thrombus. ACT 112: Negative or not required by law. Electronically signed by: Joseph Longoria M.D. 01/07/2022 8:16 AM
[2022-01-07] MEDS ORDERED: POTASSIUM CHLORIDE / WTR 10 MEQ/100 ML PLCT IV SCH (08:30)
[2022-01-07 08:44] LABS: Albumin Globulin Ratio 1.2 (0.9-2); Albumin Level 3.6 gm/dl (3.4-5.0); BUN Creatinine Ratio 18.8 (10-20); Bilirubin,Total 0.5 mg/dl (0.2-1.0); Calcium 9.1 mg/dl (8.5-10.1); Creatinine Clr Calc Pharmacy 62.9 ml/min; Est GFR (Non-African American) 69.9 ml/min; Globulin 3.1 gm/dl (2.5-4.0); Total Protein 6.7 gm/dl (6.0-8.3)
[2022-01-07] MEDS ORDERED: METOPROLOL SUCC 50MG EXT REL TAB PO SCH (09:00)
[2022-01-07] MEDS ORDERED: POTASSIUM CHLORIDE CRTAB 20 MEQ TABCR PO SCH (09:00)
[2022-01-07] MEDS ORDERED: metFORMIN HCL 500 MG TAB PO SCH (09:00)
[2022-01-07] MEDS ORDERED: CHOLECALCIFEROL 1,000 UNITS 25 MCG TAB PO SCH (09:00)
[2022-01-07] MEDS ORDERED: ROSUVASTATIN CALCIUM 5 MG TAB PO SCH (09:00)
[2022-01-07] MEDS ORDERED: PANTOprazole 40 MG TAB PO SCH (09:00)
[2022-01-07] MEDS: INSULIN ASPART PER UNIT SC SCH ×4 (09:07→20:28)
[2022-01-07] MEDS ORDERED: MAGNESIUM CHLORIDE 64MG DELAYED REL TAB PO SCH (09:30)
[2022-01-07 09:36] LABS: Folate (Folic Acid) 2.49 ng/ml (>5.38)
[2022-01-07] MEDS: oxyCODONE HCL IR 5 MG TAB (IMMEDIATE RELEASE) PO PRN ×3 (09:53→17:17)
[2022-01-07] MEDS ORDERED: OPTIRAY 320 100ml IV ONE (10:50)
[2022-01-07 11:12] LABS: Estimated Average Glucose 117 mg/dl; Hemoglobin A1C 5.7 % (4.5-5.6)
--- NOTE | 2022-01-07 11:18 | CT Scan Report ---
CT chest diagnostic w con CLINICAL HISTORY: Evaluate for lung mass TECHNIQUE: Multidetector row helical CT of the chest was performed. Coronal and sagittal reformations were obtained. Automated dose lowering techniques and/or adjustment according to patient size were u tilized for this exam. Comparison: Comparison is made to CT chest 06/07/2019 FINDINGS: Lungs and pleura: Scattered scarring changes are seen. Cystic lesion is seen in the left upper lobe. Scattered calcified granulomata are seen. In addition, there is a 3 mm noncalcified nodule in the rig ht upper lobe (series 4 image 150). Heart and pericardium: Heart size is normal. No pericardial effusion. Vessels: Unremarkable. Mediastinum and shannon: Unremarkable. Chest wall and lower neck: Subcentimeter thyroid nodules are noted which do not require follow-up by ACR criteria. Abdomen: Adrenal thickening and nodules are seen. A hypodensity is seen in the liver measuring up to 12 mm. A cyst is seen in the right kidney superior pole. Bones: Unremarkable. IMPRESSION: No evidence of pulmonary mass. ACT 112: Negative or not required by law. Electronically signed by: Joseph Longoria M.D. 01/07/2022 11:17 AM
--- NOTE | 2022-01-07 14:24 | Pharmacy Report ---
Pharmacy Glycemic Short Note 2 - Date of Service January 07, 2022 - Glycemic Short BSG Results (Last 24 hours): 01/06/22 01/06/22 01/07/22 20:31 22:27 07:14 Glucose 110 H POC Glucose 130 H 138 H 01/07/22 01/07/22 07:33 11:21 Glucose POC Glucose 111 H 123 H OUTPATIENT ANTIDIABETIC REGIMEN: * Metformin 500mg QAM (reports not taking) * HbA1c 5.7% on 01/07/22 ASSESSMENT: * Well controlled type II diabetic. Pharmacy consulted post surgery for glycemic control due to steroid use during surgery. No ongoing steroids ordered. * BSGs 94-130-138 on 01/06 and fasting this AM is 111 mg/dL. PLAN FOR INPATIENT GLYCEMIC CONTROL: * Hold outpatient oral diabetes medications * Basal insulin * Pharmacy entered NPH 15 units after surgery on 01/06, patient refused based on nursing record. * Bolus insulin * NovoLog per scale ACHS or Q6hrs while NPO * Goal Range: Low 110 mg/dL - High 140 mg/dL * Correction Factor: 20 mg/dL/unit * Nutritional / Prandial insulin per carb ratio of 1 unit per 7 grams CHO consumed * Will continue on sliding scale insulin as needed. Has not required any insulin at this point due to well controlled levels PLAN FOR DISCHARGE: * Restart metformin 500mg BID as per outpatient med list, unless contraindication present.
--- NOTE | 2022-01-07 14:25 | Orthopedic Consultation ---
Date of Consultation January 07, 2022 Assessment & Plan (1) Pathological fracture of pelvis: CAT scan of the pelvis does demonstrate a lytic lesion involving significant portions of the sacrum. There is obvious mass-effect. This undoubtedly is contributing to her neurologic symptoms and sciatica with standing. She is at risk for significant neural compression if further fractures occur or extension of the mass. At this point I recommend she consider evaluation at a tertiary care center as scope with any surgeries outside of our ability. History of Present Illness Reason for Consultation: Pelvic mass with right leg sciatica Attending Physician: Dean Mendoza DO History of Present Illness This is a very pleasant 71-year-old female that states she has had significant bouts of sciatica over the past week. She denies any trauma fall or event. She drives pain involving the right buttock posterior thigh extending down the knee. Is only limiting when standing and walking. Sitting and lying supine is very tolerable. She denies any left lower extremity pain. Denies any strength deficits or numbness or tingling while in bed. Allergies Allergy/AdvReac Type Severity Reaction Status Date / Time No Known Allergies Allergy Unknown Verified 01/06/22 15:04 Home Medications Medication Instructions Recorded Confirmed Type omeprazole 20 mg capsule,delayed 20 mg PO QAM #90 cap 03/12/21 01/06/22 Rx release losartan 100 mg tablet 100 mg PO QAM #90 tab 03/28/21 01/06/22 Rx metoprolol succinate 100 mg 100 mg PO QAM #30 tab 06/19/21 01/06/22 Rx tablet,extended release 24 hr clonazepam 0.5 mg tablet 0.5 mg PO UD PRN #90 tab 01/03/22 01/06/22 Rx hydrocodone 5 mg-acetaminophen 325 See Rx Instructions PO Q6H PRN #40 01/03/22 01/06/22 Rx mg tablet tab cholecalciferol (vitamin D3) 50 50 mcg PO QAM 01/06/22 01/06/22 History mcg (2,000 unit) capsule metformin 500 mg tablet 500 mg PO QAM 01/06/22 01/06/22 History rosuvastatin 5 mg tablet 5 mg PO QAM 01/06/22 01/06/22 History Patient History Medical History Bilateral breast cancer [id number]--sx/chemo/radiation Depression with anxiety Diverticular disease Hyperlipidemia Hypertension Mild mitral valve prolapse 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; 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 Sensory symmetric and intact. Negative logroll. No gross tension signs. Results & Data ([facility]) Vital Signs (Past 12 Hours) Vital Signs Temp Pulse Resp BP BP Pulse Ox 01/07/22 07:22 36.7 C 80 16 147/86 H 94 01/07/22 02:48 36.9 C 82 16 150/99 H 97
--- NOTE | 2022-01-07 16:23 | Billing Data ---
Date of Service January 07, 2022 Coding Level of Care Code 44725 Subseq Hosp Care Lvl 3
[2022-01-07] MEDS ORDERED: FOLIC ACID 1 MG TAB PO SCH (16:30)
[2022-01-07] MEDS: DOCUSATE SODIUM/SENNA 50/8.6MG TAB PO SCH (20:29)
--- NOTE | 2022-01-07 22:30 | Electrocardiogram Report ---
Test Reason : Blood Pressure : / mmHG Vent. Rate : 096 BPM Atrial Rate : 096 BPM P-R Int : 154 ms QRS Dur : 102 ms QT Int : 408 ms P-R-T Axes : 061 -71 100 degrees QTc Int : 515 ms Normal sinus rhythm Possible Left atrial enlargement Left anterior fascicular block Left ventricular hypertrophy with repolarization abnormality Prolonged QT Abnormal ECG No previous ECGs available Confirmed by Wilberto Lacey ([id number]) on 01/07/2022 10:30:28 PM Referred By: REFERRED SELF Confirmed By:Wilberto Lacey
[2022-01-08] MEDS: oxyCODONE HCL IR 5 MG TAB (IMMEDIATE RELEASE) PO PRN (03:05)
--- NOTE | 2022-01-08 11:47 | Discharge Summary ---
Date of Service January 08, 2022 Admission HPI Per Admitting Provider Harmony James is here for right hip pain that started one week prior. She has a prior history of DM, HTN, Diverticulitis and HLD along with breast cancer in 2003 s/p lumpectomy, chemotherapy and radiation therapy. Her pain has been severe and progressive 1/10 when laying still and 10/10 pain when she moves. The pain is at the at her lower hip and top of her right thigh. This feels similar to when she had sciatica in the past. The pain radiates to her right leg. She had called her PCP and was prescribed prednisone, hydrocodone and Voltaren with no improvement. She saw a chiropractor 2 days prior who recommended ice, and had no improvement with this. She has an extensive smoking history and no family history of cancer. She is not UTD on pap smears, her last menstruation was in 2002 prior to starting chemo therapy. Admission Exam Per Admitting Provider Constitutional: WD/WN, vitals as above Eyes: PERRL, conjunctivae normal, anicteric sclerae ENMT: external ear and nose normal, oropharynx normal Neck: normal visual inspection Respiratory: normal respiratory effort, lungs clear to auscultation Cardiovascular: RRR, no murmur, no edema Gastrointestinal (Abdomen): normal bowel sounds, soft, nontender, no hepatosplenomegaly Musculoskeletal: - tender over the right hip/buttock lead ing to tenderness down the right leg - negative log roll - positive straight leg at 20 degrees - sensation intact to light touch in low er extremity of right - 5/5 strength in dorsiflexion, plantarf lexion - decreased strength on hip flexion 2/2 pain Skin: no rashes, warm and dry Neurologic: awake Speech / Cognition: normal speech Motor/Sensory: no tremor Psychiatric: Orientation: alert Eye Contact: good eye contact Speech: normal rate/rhythm/volume of speech Affect: euthymic affect Thought Process: goal directed thought process Principal Diagnosis Soft tissue mass of sacroiliac spine Discharge Exam Constitutional: WD/WN, vitals as above Eyes: PERRL, conjunctivae normal, anicteric sclerae ENMT: external ear and nose normal, oropharynx normal Neck: normal visual inspection Respiratory: normal respiratory effort, lungs clear to auscultation Cardiovascular: RRR, no murmur, no edema Gastrointestinal (Abdomen): Soft, nontender, no hepatosplenomegaly Musculoskeletal: - tender over the right hip/buttock lead ing to tenderness down the right leg - negative log roll - positive straight leg at 20 degrees - sensation intact to light touch in low er extremity of right - 5/5 strength in dorsiflexion, plantarf lexion - decreased strength on hip flexion 2/2 pain Skin: no rashes, warm and dry Neurologic: awake Speech / Cognition: normal speech Motor/Sensory: no tremor Discharge Data Allergies Allergy/AdvReac Type Severity Reaction Status Date / Time No Known Allergies Allergy Unknown Verified 01/06/22 15:04 Consultations 01/06/22 18:39 Consult Orthopedic Surgery Routine 01/07/22 15:50 Burn CD for patient Routine 01/08/22 06:36 Burn CD for patient Routine Ordered Studies 01/06/22 13:13 CT lumbar spine wo con Stat 01/07/22 US venous doppler LE BI Routine 01/07/22 09:54 CT chest diagnostic w con Routine Hospital Course (1) Pathological fracture of lumbosacral spine: This is a 71 year old female with a history of T2DM, HTN, and breast cancer in 2002 s/p lumpectomy, chemo, and radiation therapy who presented for worsening R hip pain, found to have a sacral mass with fractures of the right T5 vertebral body and sacral ala on imaging. Right hip pain, likely secondary to new sacral mass and pathological vertebral and sacral fractures - pain well-controlled with dexamethasone, tylenol prn, oxycodone prn - XR R femur/hip negative for fracture - venous doppler 01/07- no evidence of DVT - concerning for malignancy in setting of smoking history and breast CA history - Chest CT in setting of smoking history- no evidence of pulmonary mass - Pt seen by orthopedics who recommended transfer to tertiary care given concern for malignancy which should be biopsied by spine/oncology/surgery. Pt transferred to [facility] [address] on 01/08 Hypomagnesemia - Mg 1.7 on admission, repleted Low folate - in the setting of MCV 107.6 - Hgb 13.3, no anemic symptoms Hypokalemia, resolved - 4.0 s/p 40 mEq KCl - 2.8 on admission Chronic medical conditions T2DM: hold home HTN: continue home metoprolol and losartan HLD: continue home rosuvastatin GERD: continue home omeprazole DM II - A1c ordered - holding oral agents - placed pharmacy glycemic consult given steroid use UA with epithelial cells and no dysuria or urgency - likely contaminant vs. asymptomatic bacteruria - follow symptoms and culture DVT: holding chemoprophylaxis prior to ortho evaluation Diet: NPO Code: full (2) Pathological fracture of pelvis: (3) History of breast cancer: (4) Type II diabetes mellitus: (5) Hypertension: (6) Hyperlipidemia: Total Time Total Time Spent Total Time Spent (In Minutes): 30 Discharge Plan Discharge Items Patient Disposition: Transfer Acute Care Hospital Reason For Visit: HIP PAIN Discharge Diagnosis: Soft tissue mass of sacroiliac spine Condition on Discharge: Fair Activity: Per Instructions section Non-emergency contact: Primary Care Provider Call non-emergency contact if: you have any medication questions, your symptoms worsen and your pain is not controlled Follow-up/Referrals: Judie Ojeda CRNP [Primary Care Provider] - Diet: Carb Consistent or DM2 Addtl Attending Provider Instructions: You are being transferred to [facility] for further evaluation and management of your spinal mass. This is because [facility] has spine oncology/surgery which our facility at [facility] does not. Below is your hospital course which should be read by your providers at [facility] [address]. Pathological fracture of lumbosacral spine: Plan: This is a 71 year old female with a history of T2DM, HTN, and breast cancer in 2002 s/p lumpectomy, chemo, and radiation therapy who presented for worsening R hip pain, found to have a sacral mass with fractures of the right T5 vertebral body and sacral ala on imaging. Right hip pain, likely secondary to new sacral mass and pathological vertebral and sacral fractures - pain well-controlled on dexamethasone, tylenol prn, oxycodone prn - ortho consulted- recommended tertiary care transfer due to concern for malignancy - venous doppler 01/07 shows no evidence of DVT New sacral mass on CT -concerning for malignancyin setting of smoking history and breast CA history - MRI potentially needed for surgical eval as above, may clarify mass - Chest CT in setting of smoking history does not suggest presence of pulmonary mass - Orthopedic recommendation for transfer to tertiary care as above Hypomagnesemia - Mg 1.7 - Repleting as needed Low folate - in the setting of MCV 107.6 - Hgb 13.3, no anemic symptoms - Repleting as needed Hypokalemia, resolved - 4.0 s/p 40 mEq KCl - 2.8 on admission - Trend BMP Pending Studies at Discharge: No Stand-Alone Forms: My [facility] Skilled Items Patient informed of condition?: Yes DNR: No Discharge Level of Care: Other Communicable Disease: No Discharge Prognosis: Stable Lines: None Urinary Catheter: No Medications and DC Order Prescriptions: Continued omeprazole 20 mg capsule,delayed release(DR/EC) 20 mg PO QAM Qty: 90 RF: 3 losartan 100 mg tablet 100 mg PO QAM Qty: 90 RF: 3 metoprolol succinate 100 mg tablet extended release 24 hr 100 mg PO QAM Qty: 30 RF: 5 hydrocodone-acetaminophen 5-325 mg tablet See Rx Instructions PO Q6H PRN (Reason: pain) Qty: 40 RF: 0 clonazepam 0.5 mg tablet 0.5 mg PO UD PRN (Reason: anxiety) Qty: 90 RF: 0 metformin 500 mg tablet 500 mg PO QAM RF: 0 rosuvastatin 5 mg tablet 5 mg PO QAM RF: 0 cholecalciferol (vitamin D3) 50 mcg (2,000 unit) capsule 50 mcg PO QAM RF: 0 Discharge Orders: Discharge Order (Routine); Ordered 01/08/22 Ordered By: Asad Mcintyre Admission Data Admit Date/Time: 01/06/22 16:59 Attending Provider: Dean Mendoza Admit Provider: Larry Rogel Primary Care Provider: Judie Ojeda Other Providers: Buster Falk ; Charo Bernstein Other Interventions: Discharge Summary Assessment (RN) Last Done: 01/08/22 07:18 Supervising Physician Co-Signing Physician Notes discharge set up yesterday, but not able to be physically completed until this AM. as above Resident Activity Tracking Resident Involvement: Resident Care Provided Care Provided: Adult Hospital Medicine
== END 2022-01-08 07:10 | disposition short-term general hospital (02) | DRG 543 ==
LOC: ED 13:00 → SUATTDRO 16:59 → EDINP 16:59 → 2W 22:14

== ENCOUNTER 2022-02-11 11:19 | Observation (INO) ==
--- NOTE | 2022-02-11 11:48 | Emergency Department Note ---
History of Present Illness General Chief complaint: Confusion Time Seen by Provider: 02/11/22 11:25 Source: patient and RN notes reviewed History of Present Illness Provider complaint: Confusion Onset (ago): hour(s) Location: head Pain Consistency: + now resolved Quality: + other (Difficult to arouse and confused) Exacerbated By: + other (Being woken up abruptly) Associated symptoms: + confusion; no chest pain, no cough, no fever/chills, no headaches, no nausea/vomiting or no shortness of breath This is a 71-year-old female brought in for confusion that started this morning. Apparently her family had difficulty arousing the patient. They noted that her O2 saturation was in the 80s. She states that she remembers what happened. She states she was violently woken up and so became somewhat aggressive and was c onfused for some time. She states that has now resolved. She has no complaints other than chronic pain to her hip and back. She is on fentanyl patches as well as Dilaudid p.o. She takes 50 mcg of fentanyl and 2 mg of Dilaudid. She had talked to her primary care physician who recently increased her fentanyl to 75 mcg but the patient has not picked up the prescription and is still on the older dose. She states she did not overdose on her medications and has been applying the patches with the help of her home health aide. She denies any headaches, fever, cough or cold symptoms, shortness of breath, chest pain, abdominal pain, vomiting, diarrhea, black or bloody stools, urinary symptoms or leg swelling or pain. She does complain of continued pain to her back and hip which is unchanged since her diagnosis of fracture and metastatic breast cancer. I did obtain history from the patient's family member who is with her this morning. He stated that the patient was very difficult to arouse. She was having very sonorous respirations and at times she would become apneic for up to 5 seconds. She was then very confused after he woke her up. Home Medications Medication Instructions Recorded Confirmed Type omeprazole 20 mg capsule,delayed 20 mg PO QAM #90 cap 03/12/21 02/11/22 Rx release losartan 100 mg tablet 100 mg PO QAM #90 tab 03/28/21 02/11/22 Rx metoprolol succinate 100 mg 100 mg PO QAM #30 tab 06/19/21 02/11/22 Rx tablet,extended release 24 hr clonazepam 0.5 mg tablet 0.5 mg PO UD PRN #90 tab 01/03/22 02/11/22 Rx cholecalciferol (vitamin D3) 50 50 mcg PO QAM 01/06/22 02/11/22 History mcg (2,000 unit) capsule metformin 500 mg tablet 500 mg PO QAM 01/06/22 02/11/22 History rosuvastatin 5 mg tablet 5 mg PO QAM 01/06/22 02/11/22 History acetaminophen 325 mg tablet 650 mg PO Q6H PRN tab 02/08/22 02/11/22 History anastrozole 1 mg tablet 1 mg PO DAILY 02/08/22 02/11/22 History fentanyl 75 mcg/hr transdermal 1 patch TRANSDERMAL Q72H #10 ea 02/08/22 02/11/22 Rx patch gabapentin 300 mg capsule 300 mg PO Q8H cap 02/08/22 02/11/22 History hydromorphone 2 mg tablet 2 mg PO Q4H PRN 02/08/22 02/11/22 History multivitamin with minerals 1 cap PO BID cap 02/08/22 02/11/22 History venlafaxine 150 mg 150 mg PO DAILY 02/08/22 02/11/22 History capsule,extended release 24 hr Allergies Allergy/AdvReac Type Severity Reaction Status Date / Time No Known Allergies Allergy Unknown Verified 02/11/22 15:19 Past Med/Surg History Medical History Bilateral breast cancer [id number]--sx/chemo/radiation Depression with anxiety Diverticular disease Hyperlipidemia Hypertension Mild mitral valve prolapse hx of; 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 and A total of 10 systems reviewed and were otherwise negative Physical Exam Vital Signs Vital Signs - 24 hr 02/11/22 11:09 02/11/22 11:26 02/11/22 11:41 Temperature 37.2 C Temperature Source Oral Pulse Rate 91 H Pulse Rate [Apical] 99 H Respiratory Rate 20 22 Respiratory Effort / Characteristics Non-Labored Spontaneous Non-Labored Respiratory Depth Normal Normal Respiratory Pattern Blood Pressure 100/75 Blood Pressure [Right Arm] 100/75 Blood Pressure Mean 83 Blood Pressure Mean [Right Arm] 83 Pulse Oximetry 90 90 98 Oxygen Delivery Method Room Air Room Air Room Air Oxygen Flow Rate 2 Fraction of Inspired Oxygen Sepsis Recent Fever Within 48 Hours No Sepsis New/Unexplained Change in Mental Status Yes Sepsis Action Taken by Nursing No Action Required 02/11/22 12:00 02/11/22 14:30 02/11/22 16:14 Temperature Temperature Source Pulse Rate 92 H Pulse Rate [Apical] 97 H 92 H Respiratory Rate 26 H 14 18 Respiratory Effort / Characteristics Non-Labored Spontaneous Non-Labored Spontaneous Mechanically Ventilated Respiratory Depth Normal Normal Normal Respiratory Pattern Regular Blood Pressure Blood Pressure [Right Arm] 113/72 103/61 Blood Pressure Mean Blood Pressure Mean [Right Arm] 85 75 Pulse Oximetry 93 93 98 Oxygen Delivery Method Nasal Cannula Room Air Oxygen Flow Rate 2 Fraction of Inspired Oxygen 28 Sepsis Recent Fever Within 48 Hours Sepsis New/Unexplained Change in Mental Status Sepsis Action Taken by Nursing Constitutional: Vital signs reviewed. O2 saturation is 94% on room air Eyes: Pinpoint pupils bilaterally. Conjunctiva are noninjected. ENT: Pharynx is clear without erythema or exudate. Mucous membranes are slightly dry. Neck supple without meningeal signs. Respiratory: Clear to auscultation bilaterally. Breath sounds are equal bilaterally. Cardiovascular: Tachycardic. Heart rate 101. Regular rhythm. GI: Soft, nondistended and nontender. Bowel sounds are present. Musculoskeletal: No peripheral edema. No lower extremity tenderness. Integumentary: No cyanosis. or jaundice. Neurologic: The patient is awake and alert. She is oriented x4. Cranial nerves II-XII are intact. Motor is 5 out of 5 all extremities. Sensation is intact to light touch all extremities. Normal speech. No pronator drift. No limb ataxia. Psychiatric: Normal affect. Not anxious appearing. Course Administered Medications Lactated Ringer's (Lr) 1,000 mls @ 100 mls/hr IV .Q10H ONE Stop: 02/12/22 02:16 Last Admin: 02/11/22 17:26 Dose: 100 mls/hr Documented by: [id number] Magnesium Sulfate/Dextrose (Magnesium Sulfate / D5w) 1 gm in 100 mls @ 50 ml s/hr IV Q2H VI Stop: 02/11/22 22:32 Last Admin: 02/11/22 17:26 Dose: 50 mls/hr Documented by: [id number] Discontinued Medications Ioversol (Optiray 320 125ml) 120 ml IV ONCE ONE Stop: 02/11/22 13:57 Last Admin: 02/11/22 13:56 Dose: 120 ml Documented by: [id number] Medical Decision Making Differential Diagnosis Toxidrome, opiate overdose, metastatic disease to the brain, hypopnea, pneumonia, UTI Medical Records Attestation: I reviewed the patient's medical records. I did perform a limited focused review of portions of the patient's old chart on the electronic medical record. The patient was admitted to the hospital last month for metastatic breast cancer with metastases to the hip and lumbar spine with a pathologic fracture to the lumbar spine. She was transferred to [facility] where she underwent palliative radiation and chemotherapy. She was then sent to [facility] and then eventually discharged home. Home Medications Current Medication List: was personally reviewed by me Laboratory Data Attestation: I reviewed the patient's lab results. Result diagrams: 02/11/22 11:55 02/11/22 11:55 Lab Results 02/11/22 02/11/22 02/11/22 Range/Units 11:55 11:55 11:55 WBC (4.8-10.8) K/uL RBC (4.2-5.4) M/uL Hgb (12.0-16.0) g/dL Hct (37-47) % MCV (80-100) fL MCH (25-34) pg MCHC (32-36) g/dL RDW Std Deviation (36.4-46.3) fL RDW Coeff of Cheri (11.5-14.5) % Plt Count (130-400) K/uL MPV (7.4-10.4) fL Immature Gran % (Auto) % Neut % (Auto) % Lymph % (Auto) % [place] % (Auto) % Eos % (Auto) % Baso % (Auto) % Neut # (Auto) (1.4-6.5) K/uL Lymph # (Auto) (1.2-3.4) K/uL [place] # (Auto) (0.11-0.59) K/uL Eos # (Auto) (0-0.5) K/uL Baso # (Auto) (0-0.2) K/uL Immature Gran # (Auto) (0.00-0.02) K/uL PT 10.9 (9.0-12.0) Seconds INR 1.0 (0.9-1.1) ABG pH (7.35-7.45) ABG pCO2 (35-46) mmHg ABG pO2 (80-95) mmHg ABG HCO3 (19-24) mmol/L ABG O2 Saturation (90-95) % ABG Base Excess (-9-1.8) mEq/L Rafal Test (Pos) Barometric Pressure mm/Hg Oxygen Given Sodium 142 (136-145) mmol/L Potassium 4.5 (3.5-5.1) mmol/L Chloride 105 (98-107) mmol/L Carbon Dioxide 27 (21-32) mmol/L Anion Gap 10 (3-11) BUN 24 H (6-23) mg/dl Creatinine 1.44 H (0.6-1.2) mg/dl Est Cr Clr Drug Dosing Not Reportable Est GFR ( Amer) 42.8 ml/min Est GFR (Non-Af Amer) 37.0 ml/min BUN/Creatinine Ratio 16.7 (10-20) Glucose 118 H (70-99(Fasting)) mg/dl Calcium 9.4 (8.5-10.1) mg/dl Magnesium 1.7 (1.7-2.4) mg/dl Total Bilirubin 0.4 (0.2-1.0) mg/dl AST 20 (13-39) U/L ALT 12 (7-52) U/L Alkaline Phosphatase 82 (34-104) U/L Troponin I 0.17 H* (0-0.04) ng/ml Total Protein 7.7 (6.0-8.3) gm/dl Albumin 4.2 (3.4-5.0) gm/dl Globulin 3.5 (2.5-4.0) gm/dl Albumin/Globulin Ratio 1.2 (0.9-2) TSH (0.300-4.500) uIu/ml Urine Color Urine Appearance (Clear) Urine pH (4.5-7.5) Ur Specific Gleason (1.000-1.030) Urine Protein (Negative) Urine Glucose (UA) (Negative) Urine Ketones (Negative) Urine Blood (Negative) Urine Nitrite (Negative) Urine Bilirubin (Negative) Urine Urobilinogen (Negative) Ur Leukocyte Esterase (Negative) Urine WBC (Auto) (0-5) /hpf Urine RBC (Auto) (0-4) /hpf U Hyaline Cast (Auto) (0-5) /lpf U Epithel Cells (Auto) (0-5) /lpf Urine Bacteria (Auto) (Negative) Salicylates < 3.0 L (3.0-30) mg/dl Urine Opiates Screen (Neg) Ur Methadone, Qual (Neg) Acetaminophen < 3 L (10-30) ug/ml Urine Barbiturates (Neg) Ur Phencyclidine (PCP) (Neg) U Amphetamin/Meth Scrn (Neg) MDMA (Ecstasy) Screen (Neg) U Benzodiazepines Scrn (Neg) Ur Cocaine Metabolite (Neg) U Marijuana (THC) Screen (Neg) Ethyl Alcohol mg/dL (<10.0) mg/dl SARS-CoV-2, RNA, NAAT (NEGATIVE) 02/11/22 02/11/22 02/11/22 Range/Units 11:55 11:55 12:03 WBC 10.34 (4.8-10.8) K/uL RBC 3.80 L (4.2-5.4) M/uL Hgb 13.2 (12.0-16.0) g/dL Hct 40.4 (37-47) % MCV 106.3 H (80-100) fL MCH 34.7 H (25-34) pg MCHC 32.7 (32-36) g/dL RDW Std Deviation 53.5 H (36.4-46.3) fL RDW Coeff of Cheri 13.7 (11.5-14.5) % Plt Count 251 (130-400) K/uL MPV 10.0 (7.4-10.4) fL Immature Gran % (Auto) 0.3 % Neut % (Auto) 80.4 % Lymph % (Auto) 10.2 % [place] % (Auto) 8.4 % Eos % (Auto) 0.5 % Baso % (Auto) 0.2 % Neut # (Auto) 8.32 H (1.4-6.5) K/uL Lymph # (Auto) 1.05 L (1.2-3.4) K/uL [place] # (Auto) 0.87 H (0.11-0.59) K/uL Eos # (Auto) 0.05 (0-0.5) K/uL Baso # (Auto) 0.02 (0-0.2) K/uL Immature Gran # (Auto) 0.03 H (0.00-0.02) K/uL PT (9.0-12.0) Seconds INR (0.9-1.1) ABG pH (7.35-7.45) ABG pCO2 (35-46) mmHg ABG pO2 (80-95) mmHg ABG HCO3 (19-24) mmol/L ABG O2 Saturation (90-95) % ABG Base Excess (-9-1.8) mEq/L Rafal Test (Pos) Barometric Pressure mm/Hg Oxygen Given Sodium (136-145) mmol/L Potassium (3.5-5.1) mmol/L Chloride (98-107) mmol/L Carbon Dioxide (21-32) mmol/L Anion Gap (3-11) BUN (6-23) mg/dl Creatinine (0.6-1.2) mg/dl Est Cr Clr Drug Dosing Est GFR ( Amer) ml/min Est GFR (Non-Af Amer) ml/min BUN/Creatinine Ratio (10-20) Glucose (70-99(Fasting)) mg/dl Calcium (8.5-10.1) mg/dl Magnesium (1.7-2.4) mg/dl Total Bilirubin (0.2-1.0) mg/dl AST (13-39) U/L ALT (7-52) U/L Alkaline Phosphatase (34-104) U/L Troponin I (0-0.04) ng/ml Total Protein (6.0-8.3) gm/dl Albumin (3.4-5.0) gm/dl Globulin (2.5-4.0) gm/dl Albumin/Globulin Ratio (0.9-2) TSH 0.529 (0.300-4.500) uIu/ml Urine Color Urine Appearance (Clear) Urine pH (4.5-7.5) Ur Specific Gleason (1.000-1.030) Urine Protein (Negative) Urine Glucose (UA) (Negative) Urine Ketones (Negative) Urine Blood (Negative) Urine Nitrite (Negative) Urine Bilirubin (Negative) Urine Urobilinogen (Negative) Ur Leukocyte Esterase (Negative) Urine WBC (Auto) (0-5) /hpf Urine RBC (Auto) (0-4) /hpf U Hyaline Cast (Auto) (0-5) /lpf U Epithel Cells (Auto) (0-5) /lpf Urine Bacteria (Auto) (Negative) Salicylates (3.0-30) mg/dl Urine Opiates Screen (Neg) Ur Methadone, Qual (Neg) Acetaminophen (10-30) ug/ml Urine Barbiturates (Neg) Ur Phencyclidine (PCP) (Neg) U Amphetamin/Meth Scrn (Neg) MDMA (Ecstasy) Screen (Neg) U Benzodiazepines Scrn (Neg) Ur Cocaine Metabolite (Neg) U Marijuana (THC) Screen (Neg) Ethyl Alcohol mg/dL < 10.0 (<10.0) mg/dl SARS-CoV-2, RNA, NAAT (NEGATIVE) 02/11/22 02/11/22 02/11/22 Range/Units 13:14 15:23 15:49 WBC (4.8-10.8) K/uL RBC (4.2-5.4) M/uL Hgb (12.0-16.0) g/dL Hct (37-47) % MCV (80-100) fL MCH (25-34) pg MCHC (32-36) g/dL RDW Std Deviation (36.4-46.3) fL RDW Coeff of Cheri (11.5-14.5) % Plt Count (130-400) K/uL MPV (7.4-10.4) fL Immature Gran % (Auto) % Neut % (Auto) % Lymph % (Auto) % [place] % (Auto) % Eos % (Auto) % Baso % (Auto) % Neut # (Auto) (1.4-6.5) K/uL Lymph # (Auto) (1.2-3.4) K/uL [place] # (Auto) (0.11-0.59) K/uL Eos # (Auto) (0-0.5) K/uL Baso # (Auto) (0-0.2) K/uL Immature Gran # (Auto) (0.00-0.02) K/uL PT (9.0-12.0) Seconds INR (0.9-1.1) ABG pH 7.29 L (7.35-7.45) ABG pCO2 56 H (35-46) mmHg ABG pO2 89 (80-95) mmHg ABG HCO3 26 H (19-24) mmol/L ABG O2 Saturation 96.2 H (90-95) % ABG Base Excess -1.3 (-9-1.8) mEq/L Rafal Test Pos (Pos) Barometric Pressure 734.0 mm/Hg Oxygen Given 2% Sodium (136-145) mmol/L Potassium (3.5-5.1) mmol/L Chloride (98-107) mmol/L Carbon Dioxide (21-32) mmol/L Anion Gap (3-11) BUN (6-23) mg/dl Creatinine (0.6-1.2) mg/dl Est Cr Clr Drug Dosing Est GFR ( Amer) ml/min Est GFR (Non-Af Amer) ml/min BUN/Creatinine Ratio (10-20) Glucose (70-99(Fasting)) mg/dl Calcium (8.5-10.1) mg/dl Magnesium (1.7-2.4) mg/dl Total Bilirubin (0.2-1.0) mg/dl AST (13-39) U/L ALT (7-52) U/L Alkaline Phosphatase (34-104) U/L Troponin I (0-0.04) ng/ml Total Protein (6.0-8.3) gm/dl Albumin (3.4-5.0) gm/dl Globulin (2.5-4.0) gm/dl Albumin/Globulin Ratio (0.9-2) TSH (0.300-4.500) uIu/ml Urine Color Dark Yellow Urine Appearance Clear (Clear) Urine pH 5.0 (4.5-7.5) Ur Specific Gleason > 1.045 H (1.000-1.030) Urine Protein 1+ H (Negative) Urine Glucose (UA) Negative (Negative) Urine Ketones Negative (Negative) Urine Blood Negative (Negative) Urine Nitrite Negative (Negative) Urine Bilirubin Negative (Negative) Urine Urobilinogen Negative (Negative) Ur Leukocyte Esterase Negative (Negative) Urine WBC (Auto) 1-5 (0-5) /hpf Urine RBC (Auto) 5-10 H (0-4) /hpf U Hyaline Cast (Auto) 5-10 H (0-5) /lpf U Epithel Cells (Auto) >30 H (0-5) /lpf Urine Bacteria (Auto) Negative (Negative) Salicylates (3.0-30) mg/dl Urine Opiates Screen (Neg) Ur Methadone, Qual (Neg) Acetaminophen (10-30) ug/ml Urine Barbiturates (Neg) Ur Phencyclidine (PCP) (Neg) U Amphetamin/Meth Scrn (Neg) MDMA (Ecstasy) Screen (Neg) U Benzodiazepines Scrn (Neg) Ur Cocaine Metabolite (Neg) U Marijuana (THC) Screen (Neg) Ethyl Alcohol mg/dL (<10.0) mg/dl SARS-CoV-2, RNA, NAAT NEGATIVE (NEGATIVE) 02/11/22 Range/Units 15:49 WBC (4.8-10.8) K/uL RBC (4.2-5.4) M/uL Hgb (12.0-16.0) g/dL Hct (37-47) % MCV (80-100) fL MCH (25-34) pg MCHC (32-36) g/dL RDW Std Deviation (36.4-46.3) fL RDW Coeff of Cheri (11.5-14.5) % Plt Count (130-400) K/uL MPV (7.4-10.4) fL Immature Gran % (Auto) % Neut % (Auto) % Lymph % (Auto) % [place] % (Auto) % Eos % (Auto) % Baso % (Auto) % Neut # (Auto) (1.4-6.5) K/uL Lymph # (Auto) (1.2-3.4) K/uL [place] # (Auto) (0.11-0.59) K/uL Eos # (Auto) (0-0.5) K/uL Baso # (Auto) (0-0.2) K/uL Immature Gran # (Auto) (0.00-0.02) K/uL PT (9.0-12.0) Seconds INR (0.9-1.1) ABG pH (7.35-7.45) ABG pCO2 (35-46) mmHg ABG pO2 (80-95) mmHg ABG HCO3 (19-24) mmol/L ABG O2 Saturation (90-95) % ABG Base Excess (-9-1.8) mEq/L Rafal Test (Pos) Barometric Pressure mm/Hg Oxygen Given Sodium (136-145) mmol/L Potassium (3.5-5.1) mmol/L Chloride (98-107) mmol/L Carbon Dioxide (21-32) mmol/L Anion Gap (3-11) BUN (6-23) mg/dl Creatinine (0.6-1.2) mg/dl Est Cr Clr Drug Dosing Est GFR ( Amer) ml/min Est GFR (Non-Af Amer) ml/min BUN/Creatinine Ratio (10-20) Glucose (70-99(Fasting)) mg/dl Calcium (8.5-10.1) mg/dl Magnesium (1.7-2.4) mg/dl Total Bilirubin (0.2-1.0) mg/dl AST (13-39) U/L ALT (7-52) U/L Alkaline Phosphatase (34-104) U/L Troponin I (0-0.04) ng/ml Total Protein (6.0-8.3) gm/dl Albumin (3.4-5.0) gm/dl Globulin (2.5-4.0) gm/dl Albumin/Globulin Ratio (0.9-2) TSH (0.300-4.500) uIu/ml Urine Color Urine Appearance (Clear) Urine pH (4.5-7.5) Ur Specific Gleason (1.000-1.030) Urine Protein (Negative) Urine Glucose (UA) (Negative) Urine Ketones (Negative) Urine Blood (Negative) Urine Nitrite (Negative) Urine Bilirubin (Negative) Urine Urobilinogen (Negative) Ur Leukocyte Esterase (Negative) Urine WBC (Auto) (0-5) /hpf Urine RBC (Auto) (0-4) /hpf U Hyaline Cast (Auto) (0-5) /lpf U Epithel Cells (Auto) (0-5) /lpf Urine Bacteria (Auto) (Negative) Salicylates (3.0-30) mg/dl Urine Opiates Screen Pos H (Neg) Ur Methadone, Qual Neg (Neg) Acetaminophen (10-30) ug/ml Urine Barbiturates Neg (Neg) Ur Phencyclidine (PCP) Neg (Neg) U Amphetamin/Meth Scrn Neg (Neg) MDMA (Ecstasy) Screen Neg (Neg) U Benzodiazepines Scrn Neg (Neg) Ur Cocaine Metabolite Neg (Neg) U Marijuana (THC) Screen Neg (Neg) Ethyl Alcohol mg/dL (<10.0) mg/dl SARS-CoV-2, RNA, NAAT (NEGATIVE) Imaging Data Radiologist's Impression: Head CT 02/11/22 11:[address] DOSE: 1513.99 mGycm HISTORY: Altered mental status. TECHNIQUE: Multiaxial CT images of the head were performed without the use of intravenous contrast. Automated exposure control was utilized for this study. A dose lowering technique was utilized adhering to the principles of ALARA. Comparison: Head CT 06/07/2019. Findings: The paranasal sinuses are clear. There are trace bilateral mastoid effusions which have improved. The calvarium and skull base are intact. The ventricles and sulci are within normal limits. There is no mass, hematoma, midline shift, or acute infarct. Small focus of encephalomalacia within the left frontal lobe best seen on image 16. This may represent an old infarct. Impression: 1. No acute intracranial abnormality. 2. 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 ACT 112: Negative or not required by law. Electronically signed by: Freddy New M.D. 02/11/2022 12:57 PM Chest CTA 02/11/22 13:01 CT ANGIOGRAM OF THE CHEST CLINICAL HISTORY: Hypoxia. COMPARISON STUDY: Chest x-ray dated 06/07/2019. Chest CT dated 01/07/2022. TECHNIQUE: Following the IV administration of 120 cc of Optiray 320, CT angiogram of the chest was performed from the upper abdomen to the thoracic inlet utilizing the pulmonary embolus protocol. Images are reviewed in the axial, sagittal, and coronal planes. 3-D MIPS images are created and assessed. IV contrast was administered without complication. A dose lowering technique was utilized adhering to the principles of ALARA. CT DOSE: 362.13 mGy.cm FINDINGS: Thyroid: Normal in size and heterogeneous in attenuation. Thoracic aorta: The thoracic aorta is normal in caliber and demonstrates standard 3-vessel arch anatomy. No dissection is seen. Pulmonary vasculature: The main pulmonary arteries are dilated suggesting pulmonary artery hypertension. There are no filling defects identified in main, lobar, or segmental pulmonary branches to suggest pulmonary embolus. Heart: The heart is enlarged and without pericardial effusion. Lungs and pleural spaces: Evaluation of the lung parenchyma is degraded by motion artifact. No airspace consolidation typical for pneumonia or pleural effusion is identified. The trachea and central airways are clear. There are punctate calcified granulomas. Dependent atelectasis is seen at the lung bases. Mediastinum: There is no mediastinal lymphadenopathy. Merna: Clear. Axillae: There is no axillary lymphadenopathy. Upper abdomen: A 1.9 cm cyst is noted in the left lobe of liver. Partially visualized upper abdominal viscera is within normal limits. Skeletal structures: The skeletal structures are osteopenic. Mild spondylotic change is noted in the thoracic spine. No lytic or blastic bony lesions are seen. IMPRESSION: 1. There is no evidence of pulmonary embolus in the main, lobar, or segmental pulmonary arteries. 2. Cardiomegaly with evidence of pulmonary artery hypertension. 3. There is no airspace consolidation or pleural effusion. 4. Additional findings as above. ACT 112: Negative or not required by law. Electronically signed by: Ho Roy M.D. 02/11/2022 2:36 PM KUB X-Ray 02/11/22 16:29 XR KUB/Abdomen 1 view CLINICAL HISTORY: distended chronic narcotic- eval for obstruction TECHNIQUE: 1 view of the abdomen was obtained. Comparison: None available at the time of this dictation. FINDINGS: Lung bases are unremarkable. Degenerative changes are seen in the visualized skeleton. The bowel gas pattern is nonobstructive. A moderate amount of stool is noted within the large bowel. A small amount of contrast is seen in the bladder. IMPRESSION: Nonobstructive bowel gas pattern. ACT 112: Negative or not required by law. Electronically signed by: Joseph Longoria M.D. 02/11/2022 5:07 PM ECG Data Attestation: I personally reviewed and interpreted this ECG as follows: Indication: + altered mental status Rate (beats per minute): 96 Rhythm: + normal sinus ECG [place]: + Left axis deviation ECG ST segments: + T-wave inversions and + Nonspecific ST abnormalities ECG Findings: no PVCs Comparison ECG Date: from (January 06, 2022) Change: no significant change MDM Narrative I did evaluate the patient as noted above. The patient is presenting with hypopnea, hypoxemia and altered mental status. Initially on my examination her O2 saturation was 94% on room air. She is alert and oriented x4. The nurse reported that later she dropped into the mid 80s and became confused. IV access was established. I did place an order for continuous cardiac monitoring. The monitor showed normal sinus rhythm at a rate of 93 bpm. I did order and person ally review the patient's 12-lead EKG as described above. She has no acute ischemic changes. . I did order a urine analysis. I did order and review the patient's blood work as noted in the electronic medical record. CBC demonstrates white count of 10.3, hemoglobin 13.2 and platelet count of 251. She does have a left shift. Electrolytes are unremarkable. Creatinine is elevated at 1.4. Troponin is 0.17. Tox screen is negative. Covid testing is negative. I did order a CT of the head. I did review the images myself as well as the radiology report as described above. I did not see any acute process within the brain. I did reassess the patient. She is on oxygen as her O2 saturation is dropped. I did talk to her family member as well as the patient about the need for a CT scan to rule out PE given her recent hospitalization, history of metastatic breast cancer and hypoxemia. I did explain the risk of IV contrast to her kidneys but they were agreeable with the risk to rule out PE. A CT angiogram of the chest was ordered and did not show any evidence of PE. I did reassess the patient. I did discuss the test results with her. I did recommend hospitalization. I did discuss case with the hospitalist and transplant case manager. I did order an ABG which showed a pH of 7.29. PaCO2 is 56 with a PaO2 of 89. Impression & Plan Hypoxemia, Elevated serum creatinine, Acute alteration in mental status, Elevated troponin, Hypercapnia Discharge Plan Visit Data Chief Complaint: Confusion ED Provider: Yomi Segura Discharge Problem: Hypoxemia, Elevated serum creatinine, Acute alteration in mental status, Elevated troponin, Hypercapnia Patient Disposition: Being Evaluated by Hospitalist Discharge Instructions Interventions: ED Discharge Assessment Last Done: 02/11/22 18:08 Forms Stand Alone Forms: My [facility] [address] Prescriptions Prescriptions: No Action omeprazole 20 mg capsule,delayed release(DR/EC) 20 mg PO QAM Qty: 90 RF: 3 losartan 100 mg tablet 100 mg PO QAM Qty: 90 RF: 3 metoprolol succinate 100 mg tablet extended release 24 hr 100 mg PO QAM Qty: 30 RF: 5 clonazepam 0.5 mg tablet 0.5 mg PO UD PRN (Reason: anxiety) Qty: 90 RF: 0 fentanyl 75 mcg/hr patch 72 hour 1 patch transdermal Q72H Qty: 10 RF: 0 acetaminophen 325 mg tablet 650 mg PO Q6H PRN (Reason: pain, mild) RF: 0 anastrozole 1 mg tablet 1 mg PO DAILY RF: 0 gabapentin 300 mg capsule 300 mg PO Q8H RF: 0 hydromorphone 2 mg tablet 2 mg PO Q4H PRN (Reason: pain) RF: 0 multivitamin with minerals Capsule 1 cap PO BID RF: 0 venlafaxine 150 mg capsule,extended release 24hr 150 mg PO DAILY RF: 0 metformin 500 mg tablet 500 mg PO QAM RF: 0 rosuvastatin 5 mg tablet 5 mg PO QAM RF: 0 cholecalciferol (vitamin D3) 50 mcg (2,000 unit) capsule 50 mcg PO QAM RF: 0 Referrals Referrals: Judie Ojeda CRNP [Primary Care Provider] -
[2022-02-11 12:03] LABS: Basophils # (auto) 0.02 K/uL (0-0.2); Basophils % (auto) 0.2 %; Eosinophils # (auto) 0.05 K/uL (0-0.5); Eosinophils % (auto) 0.5 %; Hematocrit (blood only) 40.4 % (37-47); Hemoglobin 13.2 g/dL (12.0-16.0); Immature Granulocytes # (auto) 0.03 K/uL (0.00-0.02); Immature Granulocytes % (auto) 0.3 %; Lymphocytes # (auto) 1.05 K/uL (1.2-3.4); Lymphocytes % (auto) 10.2 %; Mean Corpuscular Hemoglobin 34.7 pg (25-34); Mean Corpuscular Hgb Conc 32.7 g/dL (32-36); Mean Corpuscular Volume 106.3 fL (80-100); Monocytes # (auto) 0.87 K/uL (0.11-0.59); Monocytes % (auto) 8.4 %; Neutrophils # (auto) 8.32 K/uL (1.4-6.5); Neutrophils % (auto) 80.4 %; Platelet Count 251 K/uL (130-400); RDW Coefficient of Variation 13.7 % (11.5-14.5); RDW Standard Deviation 53.5 fL (36.4-46.3); White Blood Count 10.34 K/uL (4.8-10.8)
[2022-02-11 12:23] LABS: Acetaminophen < 3 ug/ml (10-30); Salicylate < 3.0 mg/dl (3.0-30)
[2022-02-11 12:30] LABS: Prothrombin Time 10.9 Seconds (9.0-12.0)
[2022-02-11 12:31] LABS: Troponin I 0.17 ng/ml (0-0.04)
[2022-02-11 12:32] LABS: Alanine Aminotransferase 12 U/L (7-52); Albumin Globulin Ratio 1.2 (0.9-2); Albumin Level 4.2 gm/dl (3.4-5.0); Alkaline Phosphatase 82 U/L (34-104); Anion Gap 10 (3-11); Aspartate Aminotransferase 20 U/L (13-39); BUN Creatinine Ratio 16.7 (10-20); Bilirubin,Total 0.4 mg/dl (0.2-1.0); Blood Urea Nitrogen 24 mg/dl (6-23); Calcium 9.4 mg/dl (8.5-10.1); Carbon Dioxide 27 mmol/L (21-32); Chloride 105 mmol/L (98-107); Est GFR (African American) 42.8 ml/min; Globulin 3.5 gm/dl (2.5-4.0); Glucose 118 mg/dl (70-99(Fasting)); Magnesium 1.7 mg/dl (1.7-2.4); Potassium 4.5 mmol/L (3.5-5.1); Sodium 142 mmol/L (136-145); Total Protein 7.7 gm/dl (6.0-8.3)
--- NOTE | 2022-02-11 12:58 | CT Scan Report ---
HEAD CT NONCONTRAST CT DOSE: 1513.99 mGycm HISTORY: Altered mental status. TECHNIQUE: Multiaxial CT images of the head were performed without the use of intravenous contrast. A utomated exposure control was utilized for this study. A dose lowering technique was utilized adheri ng to the principles of ALARA. Comparison: Head CT 06/07/2019. Findings: The paranasal sinuses are clear. There are trace bilateral mastoid effusions which have imp roved. The calvarium and skull base are intact. The ventricles and sulci are within normal limits. Th ere is no mass, hematoma, midline shift, or acute infarct. Small focus of encephalomalacia within the left frontal lobe best seen on image 16. This may represent an old infarct. Impression: 1. No acute intracranial abnormality. 2. 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 ACT 112: Negative or not required by law. Electronically signed by: Freddy New M.D. 02/11/2022 12:57 PM
[2022-02-11] MEDS ORDERED: OPTIRAY 320 125ml IV ONE (13:56)
--- NOTE | 2022-02-11 14:37 | CT Scan Report ---
CT ANGIOGRAM OF THE CHEST CLINICAL HISTORY: Hypoxia. COMPARISON STUDY: Chest x-ray dated 06/07/2019. Chest CT dated 01/07/2022. TECHNIQUE: Following the IV administration of 120 cc of Optiray 320, CT angiogram of the chest was pe rformed from the upper abdomen to the thoracic inlet utilizing the pulmonary embolus protocol. Images are reviewed in the axial, sagittal, and coronal planes. 3-D MIPS images are created and assessed. I V contrast was administered without complication. A dose lowering technique was utilized adhering to the principles of ALARA. CT DOSE: 362.13 mGy.cm FINDINGS: Thyroid: Normal in size and heterogeneous in attenuation. Thoracic aorta: The thoracic aorta is normal in caliber and demonstrates standard 3-vessel arch anato my. No dissection is seen. Pulmonary vasculature: The main pulmonary arteries are dilated suggesting pulmonary artery hypertensi on. There are no filling defects identified in main, lobar, or segmental pulmonary branches to sugges t pulmonary embolus. Heart: The heart is enlarged and without pericardial effusion. Lungs and pleural spaces: Evaluation of the lung parenchyma is degraded by motion artifact. No airspa ce consolidation typical for pneumonia or pleural effusion is identified. The trachea and central air ways are clear. There are punctate calcified granulomas. Dependent atelectasis is seen at the lung ba ses. Mediastinum: There is no mediastinal lymphadenopathy. Merna: Clear. Axillae: There is no axillary lymphadenopathy. Upper abdomen: A 1.9 cm cyst is noted in the left lobe of liver. Partially visualized upper abdominal viscera is within normal limits. Skeletal structures: The skeletal structures are osteopenic. Mild spondylotic change is noted in the thoracic spine. No lytic or blastic bony lesions are seen. IMPRESSION: 1. There is no evidence of pulmonary embolus in the main, lobar, or segmental pulmonary arteries. 2. Cardiomegaly with evidence of pulmonary artery hypertension. 3. There is no airspace consolidation or pleural effusion. 4. Additional findings as above. ACT 112: Negative or not required by law. Electronically signed by: Ho Roy M.D. 02/11/2022 2:36 PM
[2022-02-11 15:38] LABS: Allen Test Pos (Pos); Base Excess ABG -1.3 mEq/L (-9-1.8); HCO3 ABG 26 mmol/L (19-24); Oxygen Saturation ABG 96.2 % (90-95); PCO2 ABG 56 mmHg (35-46); PO2 ABG 89 mmHg (80-95); pH ABG 7.29 (7.35-7.45)
[2022-02-11 16:09] LABS: Appearance Urine Clear (Clear); Bacteria Urine Automated Negative (Negative); Bilirubin Urine Negative (Negative); Blood Urine Negative (Negative); Color Urine Dark Yellow; Epithelial Cell Urine Auto >30 /lpf (0-5); Glucose Urine UA Negative (Negative); Ketones Urine Negative (Negative); Leukocyte Esterase Urine Negative (Negative); Nitrite Urine Negative (Negative); Protein Urine 1+ (Negative); Specific Gravity Urine > 1.045 (1.000-1.030); Urobilinogen Urine Negative (Negative)
[2022-02-11] MEDS ORDERED: LACTATED RINGER'S 1,000 ML IV ONE (16:17)
--- NOTE | 2022-02-11 16:28 | History & Physical Report ---
Date of Service February 11, 2022 Assessment & Plan (1) Encephalopathy: Plan: Acute metabolic encephalopathy with respirator acidosis- likely related to hypovolemia and ARNALDO altering the pharmacokinetics of her pain medications and fentanyl patch - Improving but not back to baseline- Hold sedating medications/narcotics- reverse respiratory acidosis - Remove fentanyl patch- can likely restart in AM at reduced dose - Hold oral Dilaudid - Percocet 5/325 mg PO q4 hours for tonight- add IV narcotic if needed - UA negative at this time - Glucose normal - TSH pending - Follow clinically (2) Uncompensated respiratory acidosis: Plan: Placed on BiPAP 08/28- Likely secondary to encephalopathy from oversedation as noted in #1 - Can follow with VBG but should resolve in the short interim - Patient tolerating well - ABG- 7.// - CTA of the chest negative for acute PE or pulmonary involvment (3) Hypovolemia: Plan: LR at 100ml/hr for one liter as well as able to eat and drink - follow with ARNALDO in the morning - Possibly related to oversedation - will have to follow (4) ARNALDO (acute kidney injury): Plan: JESSE II with ADMINISTRATIVE PROGRAM SPECIALIST increased to 1.44 (baseline 0.85-0.9) - Hydrate as above - Hold ACEi - Hold Dilaudid and Fentanyl patch as above (5) Elevated troponin I level: Plan: Without dynamic ECG changes - likley demand ischemia from events of this morning - Trend Troponin I - support respiratory status as above (6) Hyperlipidemia: Plan: Continue Rosuvastatin (7) Type II diabetes mellitus: Plan: Hold Metformin Aspart sliding scale CF 20 with correction factor 1:12 (8) Vitamin D deficiency: Plan: on Vitamin D as outpatient - hold for now (9) Pathological fracture of pelvis: Plan: As above - Tylenol PRN - Percocet 1 tab 5/325mg PO q4 hr prn - IV narcotic judicious use for next 24 hours Her right leg remains with some increase in edema- will repeat right lower extremity ultrasound to r/o DVT (10) Pathological fracture of lumbosacral spine: Plan: above (11) Breast cancer metastasized to bone: Plan: Diagnosed via bone biopsy at [facility]- - As above (12) Macrocytic anemia: Plan: Folic acid and B12 1000 mg started MCV 106 (13) Hypomagnesemia: Plan: Likely secondary to decrease intake at home - MG 1.7- 3 Grams magnesium for replacement (14) Toxic encephalopathy: (15) Folate deficiency: History of Present Illness Chief Complaint: altered mental status Primary Care Provider: MARKUS Cabezas 71 YOF with past medical history of: Breast Cancer (2002- lumpectom y/chemo/radiation- anastrazole maintenance), DMII, Vitamin D deficiency, HLD, HTN, Depression, Pathological Fracture (01/15- secondary to sacral mass with vertebral and sacral fracture). Patient comes to the EMD today referred from PCP via son secondary to increase in somnolence, confusion, difficulty arousing the patient this morning. The patient is currently accompanied by her sister. The sister reports that this morning the patient's son texted her stating that Harmony (the patient) was having "very bad sounding respirations" and had a very hard time waking her up. He was eventually able to wake her up, but when she did awaken she was confused and agitated/angry. She was to have an appointment with her PCP today, so they called them prior to arrival and was referred to the the EMD. In the EMD the patient had routine labs performed to include UA, ECG, CTA of the chest and CT scan of the head performed. These were negative for acute process or PE. Hospitalist service was consulted for admission. ABG was requested. Patient is awake and confused about the day, she feels thirsty and states she has had decreased appetite and intake, but otherwise just feels confused. She was able to recall that she had a Dr. Appointment today as well as being able to recall her previous stay and transiition to [facility] and to home. She had relative understanding of her medications and new addition of her Fentanyl Patch. Her sister states that she is improved from earlier, but still not at her baseline. She was talking with her via text last night and she was normal. The patient did have her Fentanyl Patch still on, so this was removed. Her labs are reviewed and are notable for ARNALDO, hyomagnesemia, Troponin 0.17, and elevated specific gravity of her Urine. Her toxicology screen was negative for any other agents except opiates. The patient's ABG was consistent with respiratory acidosis- she will be placed on BiPAP. She will be placed on medical telemetry, continue to trend Troponin I. Hydrate with Moffett's solutiion, follow ARNALDO and adjust her medications based on her crcl. Patient was recently admitted 01/[address] scan to have lytic lesion involving majority of the sacrum with mass effect that was causing her increase in pain and radiculopathy- she was transferred to [facility] for biopsy. She had IR biopsy performed 01/10/22 with pathology being reported as consistent with metastatic breast cancer. She did receive palliative radiation to the bone mets at the sacral area x2. She was then transferred to [facility]. Her original pain medication plan was gabapentin 300mg and oral Dilaudid. Following her discharge from [facility] she remained on her Gabapentin, Hydromorphone and had Fentanyl patch 50mcg q72 hours placed. Allergies Allergy/AdvReac Type Severity Reaction Status Date / Time No Known Allergies Allergy Unknown Verified 02/11/22 15:19 Home Medications Medication Instructions Recorded Confirmed Type omeprazole 20 mg capsule,delayed 20 mg PO QAM #90 cap 03/12/21 02/11/22 Rx release losartan 100 mg tablet 100 mg PO QAM #90 tab 03/28/21 02/11/22 Rx metoprolol succinate 100 mg 100 mg PO QAM #30 tab 06/19/21 02/11/22 Rx tablet,extended release 24 hr clonazepam 0.5 mg tablet 0.5 mg PO UD PRN #90 tab 01/03/22 02/11/22 Rx cholecalciferol (vitamin D3) 50 50 mcg PO QAM 01/06/22 02/11/22 History mcg (2,000 unit) capsule metformin 500 mg tablet 500 mg PO QAM 01/06/22 02/11/22 History rosuvastatin 5 mg tablet 5 mg PO QAM 01/06/22 02/11/22 History acetaminophen 325 mg tablet 650 mg PO Q6H PRN tab 02/08/22 02/11/22 History anastrozole 1 mg tablet 1 mg PO DAILY 02/08/22 02/11/22 History fentanyl 75 mcg/hr transdermal 1 patch TRANSDERMAL Q72H #10 ea 02/08/22 02/11/22 Rx patch gabapentin 300 mg capsule 300 mg PO Q8H cap 02/08/22 02/11/22 History hydromorphone 2 mg tablet 2 mg PO Q4H PRN 02/08/22 02/11/22 History multivitamin with minerals 1 cap PO BID cap 02/08/22 02/11/22 History venlafaxine 150 mg 150 mg PO DAILY 02/08/22 02/11/22 History capsule,extended release 24 hr Past Med/Surg History Medical History (Updated 02/12/22 @ 13:14 by Giovanni Gonzales) Bilateral breast cancer [id number]--sx/chemo/radiation Breast cancer metastasized to bone 2021 Depression with anxiety Diverticular disease Hyperlipidemia Hypertension Mild mitral valve prolapse hx of; 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 Children do You have: 1 Other Information That Helps Us Care for You: No Feels Safe at Home: Yes Safety Concerns: Feels Safe At This Time Seatbelt Use: always Sunscreen Use: Yes Assistive Devices: Walker Review of Systems Review of Systems: REVIEW OF SYSTEMS: Constitutional: No fever, sweats or chills Eyes: No diplopia, no worsening or blurred vision ENT: normal hearing, no trouble swallowing Respiratory: No cough, sputum, dyspnea at rest or on exertion Cardiovascular: No chest pain, tightness or palpitations Abdomen: (+) distention, BM reported as yesterday, No pain, nausea, vomiting, diarrhea or constipation Musculoskeletal:(+) back joint pain, Neurologic: No weakness, numbness/tingling, or balance problems Psychiatric: No anxiety or depression Skin: (+) itching to anterior chest wall Physical Exam Physical Exam: PHYSICAL EXAM: General: confused to events of today, but awake, alert, no apparent distress Head: Normocephalic, atraumatic ENT: PERRL, EOMI, no pharyngeal exudate, mucous membranes dry Neuro: AAO x 2, speech clear and mostly appropriate, strength intact bilaterally 5/5, sensation intact and equal all extremities and dermatomes, no pronator drift Chest: equal rise and fall of the chest, no accessory muscle use, no heaves or thrills, scattered crackles in bases but with good air movement on 2L NC Cardiac: Regular rate and rhythm, telemetry reviewed, skin warm dry, cap refill <3 seconds, peripheral pulses +2 no JVD, no murmur, trace edema to bilateral lower extremities GI: NABS x 4 quadrants, softly distended, tympanic on percussion, nontender to palpation, no rebound, guarding or tenderness : Spontaneously voiding, no pain, no CVA tenderness, Extremities: Normal inspection, no peripheral edema or erythema, calfs nontender to palpation Psych: Normal mood and affect Skin: itching with excoriation to anterior chest wall, and redness to perineum/sacrum Results & Data Results & Data ([facility]) Vital Signs (Past 12 Hours) Vital Signs Temp Pulse Pulse Resp BP BP Pulse Ox 02/11/22 16:14 92 H 18 98 02/11/22 14:30 92 H 14 103/61 93 02/11/22 12:00 97 H 26 H 113/72 93 02/11/22 11:41 99 H 22 100/75 98 02/11/22 11:26 37.2 C 91 H 20 100/75 90 02/11/22 11:09 90 Laboratory Results Abnormal lab results 02/11/22 02/11/22 02/11/22 Range/Units 11:55 11:55 11:55 RBC 3.80 L (4.2-5.4) M/uL MCV 106.3 H (80-100) fL MCH 34.7 H (25-34) pg RDW Std Deviation 53.5 H (36.4-46.3) fL Neut # (Auto) 8.32 H (1.4-6.5) K/uL Lymph # (Auto) 1.05 L (1.2-3.4) K/uL [place] # (Auto) 0.87 H (0.11-0.59) K/uL Immature Gran # (Auto) 0.03 H (0.00-0.02) K/uL ABG pH (7.35-7.45) ABG pCO2 (35-46) mmHg ABG HCO3 (19-24) mmol/L ABG O2 Saturation (90-95) % BUN 24 H (6-23) mg/dl Creatinine 1.44 H (0.6-1.2) mg/dl Glucose 118 H (70-99(Fasting)) mg/dl Troponin I 0.17 H* (0-0.04) ng/ml Ur Specific [place] (1.000-1.030) Urine Protein (Negative) Urine RBC (Auto) (0-4) /hpf U Hyaline Cast (Auto) (0-5) /lpf U Epithel Cells (Auto) (0-5) /lpf Salicylates < 3.0 L (3.0-30) mg/dl Urine Opiates Screen (Neg) Acetaminophen < 3 L (10-30) ug/ml 02/11/22 02/11/22 02/11/22 Range/Units 15:23 15:49 15:49 RBC (4.2-5.4) M/uL MCV (80-100) fL MCH (25-34) pg RDW Std Deviation (36.4-46.3) fL Neut # (Auto) (1.4-6.5) K/uL Lymph # (Auto) (1.2-3.4) K/uL [place] # (Auto) (0.11-0.59) K/uL Immature Gran # (Auto) (0.00-0.02) K/uL ABG pH 7.29 L (7.35-7.45) ABG pCO2 56 H (35-46) mmHg ABG HCO3 26 H (19-24) mmol/L ABG O2 Saturation 96.2 H (90-95) % BUN (6-23) mg/dl Creatinine (0.6-1.2) mg/dl Glucose (70-99(Fasting)) mg/dl Troponin I (0-0.04) ng/ml Ur Specific [place] > 1.045 H (1.000-1.030) Urine Protein 1+ H (Negative) Urine RBC (Auto) 5-10 H (0-4) /hpf U Hyaline Cast (Auto) 5-10 H (0-5) /lpf U Epithel Cells (Auto) >30 H (0-5) /lpf Salicylates (3.0-30) mg/dl Urine Opiates Screen Pos H (Neg) Acetaminophen (10-30) ug/ml Diagnostic Findings Head CT 02/11/22 11:[address] DOSE: 1513.99 mGycm HISTORY: Altered mental status. TECHNIQUE: Multiaxial CT images of the head were performed without the use of intravenous contrast. Automated exposure control was utilized for this study. A dose lowering technique was utilized adhering to the principles of ALARA. Comparison: Head CT 06/07/2019. Findings: The paranasal sinuses are clear. There are trace bilateral mastoid effusions which have improved. The calvarium and skull base are intact. The ventricles and sulci are within normal limits. There is no mass, hematoma, midline shift, or acute infarct. Small focus of encephalomalacia within the left frontal lobe best seen on image 16. This may represent an old infarct. Impression: 1. No acute intracranial abnormality. 2. 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 ACT 112: Negative or not required by law. Electronically signed by: Freddy New M.D. 02/11/2022 12:57 PM Chest CTA 02/11/22 13:01 CT ANGIOGRAM OF THE CHEST CLINICAL HISTORY: Hypoxia. COMPARISON STUDY: Chest x-ray dated 06/07/2019. Chest CT dated 01/07/2022. TECHNIQUE: Following the IV administration of 120 cc of Optiray 320, CT angiogram of the chest was performed from the upper abdomen to the thoracic inlet utilizing the pulmonary embolus protocol. Images are reviewed in the axial, sagittal, and coronal planes. 3-D MIPS images are created and assessed. IV contrast was administered without complication. A dose lowering technique was utilized adhering to the principles of ALARA. CT DOSE: 362.13 mGy.cm FINDINGS: Thyroid: Normal in size and heterogeneous in attenuation. Thoracic aorta: The thoracic aorta is normal in caliber and demonstrates standard 3-vessel arch anatomy. No dissection is seen. Pulmonary vasculature: The main pulmonary arteries are dilated suggesting pulmonary artery hypertension. There are no filling defects identified in main, lobar, or segmental pulmonary branches to suggest pulmonary embolus. Heart: The heart is enlarged and without pericardial effusion. Lungs and pleural spaces: Evaluation of the lung parenchyma is degraded by motion artifact. No airspace consolidation typical for pneumonia or pleural effusion is identified. The trachea and central airways are clear. There are punctate calcified granulomas. Dependent atelectasis is seen at the lung bases. Mediastinum: There is no mediastinal lymphadenopathy. Merna: Clear. Axillae: There is no axillary lymphadenopathy. Upper abdomen: A 1.9 cm cyst is noted in the left lobe of liver. Partially visualized upper abdominal viscera is within normal limits. Skeletal structures: The skeletal structures are osteopenic. Mild spondylotic change is noted in the thoracic spine. No lytic or blastic bony lesions are seen. IMPRESSION: 1. There is no evidence of pulmonary embolus in the main, lobar, or segmental pulmonary arteries. 2. Cardiomegaly with evidence of pulmonary artery hypertension. 3. There is no airspace consolidation or pleural effusion. 4. Additional findings as above. ACT 112: Negative or not required by law. Electronically signed by: Ho Roy M.D. 02/11/2022 2:36 PM Medications Administered Discontinued Medications Ioversol (Optiray 320 125ml) 120 ml IV ONCE ONE Stop: 02/11/22 13:57 Last Admin: 02/11/22 13:56 Dose: 120 ml Documented by: [id number] Home Medications omeprazole 20 mg capsule,delayed release 20 mg PO QAM #90 cap 03/12/21 [Rx Confirmed 02/11/22] losartan 100 mg tablet 100 mg PO QAM #90 tab 03/28/21 [Rx Confirmed 02/11/22] metoprolol succinate 100 mg tablet,extended release 24 hr 100 mg PO QAM #30 tab 06/19/21 [Rx Confirmed 02/11/22] clonazepam 0.5 mg tablet 0.5 mg PO UD PRN #90 tab 01/03/22 [Rx Confirmed 02/11/22] cholecalciferol (vitamin D3) 50 mcg (2,000 unit) capsule 50 mcg PO QAM 01/06/22 [History Confirmed 02/11/22] metformin 500 mg tablet 500 mg PO QAM 01/06/22 [History Confirmed 02/11/22] rosuvastatin 5 mg tablet 5 mg PO QAM 01/06/22 [History Confirmed 02/11/22] acetaminophen 325 mg tablet 650 mg PO Q6H PRN tab 02/08/22 [History Confirmed 02/11/22] anastrozole 1 mg tablet 1 mg PO DAILY 02/08/22 [History Confirmed 02/11/22] fentanyl 75 mcg/hr transdermal patch 1 patch TRANSDERMAL Q72H #10 ea 02/08/22 [Rx Confirmed 02/11/22] gabapentin 300 mg capsule 300 mg PO Q8H cap 02/08/22 [History Confirmed 02/11/22] hydromorphone 2 mg tablet 2 mg PO Q4H PRN 02/08/22 [History Confirmed 02/11/22] multivitamin with minerals 1 cap PO BID cap 02/08/22 [History Confirmed 02/11/22] venlafaxine 150 mg capsule,extended release 24 hr 150 mg PO DAILY 02/08/22 [History Confirmed 02/11/22] Active Medications Lactated Ringer's (Lr) 1,000 mls @ 100 mls/hr IV .Q10H ONE Stop: 02/12/22 02:16 Magnesium Sulfate/Dextrose (Magnesium Sulfate / D5w) 1 gm in 100 mls @ 50 mls/hr IV Q2H VI Stop: 02/11/22 22:32 ECG Additional Comments: Normal sinus rhythm Left axis deviation Left ventricular hypertrophy with repolarization abnormality Inferior infarct (cited on or before 11-FEB-2022) Abnormal ECG When compared with ECG of 06-JAN-2022 20:50, T wave inversion now evident in Anterior leads Code Status & VTE Plan Code Status CODE: FULL VTE: SCDS, Heparin 5000 units sub q q12 VTE Prophylaxis Plan VTE Prophylaxis will be ordered: Yes Supervising Physician Co-Signing Physician Notes Attending Attestation & Admission Note: Pt seen/examined, chart reviewed, care plan d/w MARKUS Dickerson. I agree w/ the steiner components of his documentation. 71yo female with remote h/o breast cancer and recently discovered recurrence with bone mets in the sacrum, spine, and pelvis (s/p palliative XRT and initiation of fentanyl patch/dilaudid prn) - presenting with altered mental status/somnolence for <24 hours. Upon ER presentation a VBG was obtained showing acute respiratory acidosis. BIPAP initiated. During my assessment she was very lethargic - essentially slept the entire enco unter - but did open her eyes when her name was called then would quickly fall asleep. PMH/PSH/allergies/meds/sochx/famhx - reviewed VSS, afebrile; o2 sats wnl gen - lethargic, BIPAP in place neck - no JVD heart - RRR, s1 s2, no murmur lungs - CTA b/l abd - distended (mild-moderate), BS+, no HSM ext - right leg is larger than left leg; <1+ edema b/l; pulses 2+ b/l neuro - myoclonic jerks noted labs reviewed imaging reviewed A/P: 1. toxic encephalopathy 2nd to narcotics 2. acute respiratory acidosis 2nd to CO2 narcosis 3. asymmetric legs, R>L - r/o DVT 4. abdominal distension - ileus? constipation? other? 5. stage 4 breast ca with extensive bone mets 6. T2DM 7. macrocytic anemia - recent folate def + B12 def. 8. anxiety - takes chronic clonazepam prn BIPAP for #1, #2 venous duplex study for #3 KUB x-ray for #4 HOLD fentanyl patch for #5 - once mental status is improved consider resuming the fentanyl patch but perhaps at a lower dose #8 - would STOP the clonazepam; poor combination in the setting of heavy narcotic usage supplement b12 + folate for #7 sister updated at bedside Giovanni Gonzales MD PG Care Time/CCT Total # of Minutes Spent Total Time Spent with Patient: Total time spent is greater than 50% in coordination of care (as documented) at patient's floor/unit and/or counseling patient: Coding Level of Care Code INT OBSERVATION CARE 72M LVL 3 Diagnoses Encephalopathy G93.40 Uncompensated respiratory acidosis E87.2 Hypovolemia E86.1 ARNALDO (acute kidney injury) N17.9 Elevated troponin I level R77.8 Hyperlipidemia E78.5 Type II diabetes mellitus E11.9 Vitamin D deficiency E55.9 Pathological fracture of pelvis M84.454A Pathological fracture of lumbosacral spine M84.48XA Breast cancer metastasized to bone C50.919; C79.51 Macrocytic anemia D53.9 Hypomagnesemia E83.42 Toxic encephalopathy G92.9 Folate deficiency E53.8
[2022-02-11 16:36] LABS: Amphetamines+Metham, Urine Neg (Neg); Barbiturates, Urine Neg (Neg); Benzodiazepine, Urine Neg (Neg); Cocaine, Urine Neg (Neg); MDMA (Ecstacy), Urine Neg (Neg); Methadone, Urine Neg (Neg); Opiate, Urine Pos (Neg); Phencyclidine, Urine Neg (Neg)
--- NOTE | 2022-02-11 16:54 | Electrocardiogram Report ---
Test Reason : Blood Pressure : / mmHG Vent. Rate : 096 BPM Atrial Rate : 096 BPM P-R Int : 162 ms QRS Dur : 096 ms QT Int : 390 ms P-R-T Axes : 049 -58 078 degrees QTc Int : 492 ms Poor data quality, interpretation may be adversely affected Normal sinus rhythm Left axis deviation Left ventricular hypertrophy with repolarization abnormality Poor R wave progression, consider anterior DC vs. lead placement vs. LVH Inferior infarct (cited on or before 11-FEB-2022) Abnormal ECG When compared with ECG of 06-JAN-2022 20:50, T wave inversion now evident in Anterior leads Confirmed by Valentin Russell ([id number]) on 02/11/2022 4:53:46 PM Referred By: Confirmed By:Fredo Russell
--- NOTE | 2022-02-11 17:09 | XRay Report ---
XR KUB/Abdomen 1 view CLINICAL HISTORY: distended chronic narcotic- eval for obstruction TECHNIQUE: 1 view of the abdomen was obtained. Comparison: None available at the time of this dictation. FINDINGS: Lung bases are unremarkable. Degenerative changes are seen in the visualized skeleton. The bowel gas pattern is nonobstructive. A moderate amount of stool is noted within the large bowel. A small amount of contrast is seen in the bladder. IMPRESSION: Nonobstructive bowel gas pattern. ACT 112: Negative or not required by law. Electronically signed by: Joseph Longoria M.D. 02/11/2022 5:07 PM
[2022-02-11] MEDS: MAGNESIUM SULFATE / D5W 1 GM/100 ML BAG IV SCH ×3 (17:26→23:22)
[2022-02-11 18:34] LABS: Base Excess VBG 0.3 mEq/L; HCO3 VBG 28 mmol/L; PCO2 VBG 57 mmHg (38-50); PO2 VBG 34 mmHg; pH VBG 7.31 (7.36-7.41)
[2022-02-11 18:36] LABS: Oxygen Saturation VBG < 60.0 %
[2022-02-11] MEDS ORDERED: DEXTROSE 50% 50 ML SYRINGE IV PRN (19:06)
[2022-02-11] MEDS ORDERED: CARBOHYDRATES FOR HYPOGLYCEMIA PO PRN (19:06)
[2022-02-11] MEDS ORDERED: ACETAMINOPHEN 325 MG TAB PO PRN ×2 (19:06)
[2022-02-11] MEDS ORDERED: ONDANSETRON INJ 2 MG/ML 2 ML VIAL IV PRN (19:06)
[2022-02-11] MEDS ORDERED: GLUCAGON FOR INJ 1 MG VIAL SQ PRN (19:06)
[2022-02-11] MEDS ORDERED: GLUCOSE 10 TABS/TUBE PO PRN (19:06)
[2022-02-11] MEDS ORDERED: GLUCOSE 40% GEL 15 GM TUBE PO PRN (19:06)
--- NOTE | 2022-02-11 20:08 | Ultrasound Report ---
US venous doppler LE RT CLINICAL HISTORY: swelling, increase size, decreased movement TECHNIQUE: Right lower extremity real-time compression venous ultrasound with Color Doppler imaging. Utilizing real-time ultrasonic imaging multiple real time high-resolution ultrasonic images with comp ression and noncompression maneuvers of the deep venous system in addition to color doppler imaging w ere performed from the common femoral vein through the proximal calf veins. COMPARISON: None available at the time of this dictation. FINDINGS: Currently there is normal compressibility of the deep venous system from the common femoral vein thro ugh the proximal calf veins. No current evidence of acute thrombosis is identified. Impression: No evidence of deep venous thrombus. ACT 112: Negative or not required by law. Electronically signed by: Joseph Longoria M.D. 02/11/2022 8:06 PM
[2022-02-11] MEDS: HEPARIN SOD 5,000 UNIT/0.5 ML VIAL SQ SCH (21:22)
[2022-02-11] MEDS: GABAPENTIN 300 MG CAP PO SCH (21:22)
[2022-02-11] MEDS: NYSTATIN POWDER 15GM BTL EXT SCH (21:22)
[2022-02-11] MEDS: TRIAMCINOLONE ACET 0.1% CR 80 GM TUBE EXT SCH (21:22)
[2022-02-11] MEDS: oxyCODONE/ACETAMINOPHEN 5mg/325mg TAB PO PRN (21:24)
[2022-02-11] MEDS: INSULIN ASPART PER UNIT SC SCH (22:34)
[2022-02-12] MEDS: clonazePAM 0.5 MG TAB PO PRN ×2 (00:36→15:30)
[2022-02-12] MEDS: GABAPENTIN 300 MG CAP PO SCH ×3 (05:46→21:20)
[2022-02-12] MEDS: HEPARIN SOD 5,000 UNIT/0.5 ML VIAL SQ SCH ×3 (05:47→21:20)
[2022-02-12] MEDS: ANASTROZOLE 1 MG TAB PO SCH (08:05)
[2022-02-12] MEDS: VENLAFAXINE HCL XR 150 MG CAPXR PO SCH (08:05)
[2022-02-12] MEDS: CYANOCOBALAMIN (B-12) 500 MCG TABLET PO SCH (08:05)
[2022-02-12] MEDS: ROSUVASTATIN CALCIUM 5 MG TAB PO SCH (08:05)
[2022-02-12] MEDS: PANTOprazole 40 MG TAB PO SCH (08:05)
[2022-02-12] MEDS: METOPROLOL SUCC 50MG EXT REL TAB PO SCH (08:05)
[2022-02-12] MEDS: FOLIC ACID 1 MG TAB PO SCH (08:06)
[2022-02-12] MEDS: TRIAMCINOLONE ACET 0.1% CR 80 GM TUBE EXT SCH ×2 (08:06→21:20)
[2022-02-12] MEDS: DOCUSATE SODIUM/SENNA 50/8.6MG TAB PO SCH (08:06)
[2022-02-12] MEDS: NYSTATIN POWDER 15GM BTL EXT SCH ×3 (08:06→21:20)
[2022-02-12] MEDS: INSULIN ASPART PER UNIT SC SCH ×4 (09:20→22:03)
[2022-02-12 09:54] LABS: Anion Gap 7 (3-11); BUN Creatinine Ratio 17.6 (10-20); Blood Urea Nitrogen 18 mg/dl (6-23); Calcium 9.3 mg/dl (8.5-10.1); Carbon Dioxide 28 mmol/L (21-32); Chloride 105 mmol/L (98-107); Creatinine Clr Calc Pharmacy 52.1 ml/min; Est GFR (Non-African American) 56.1 ml/min; Glucose 84 mg/dl (70-99(Fasting)); Sodium 140 mmol/L (136-145)
--- NOTE | 2022-02-12 13:00 | Hospitalist Progress Note ---
Date of Service February 12, 2022 Assessment & Plan (1) Encephalopathy: Plan: Acute toxic encephalopathy with mild respirator acidosis- likely related to narcotic use which has been discontinued. Much improved. Will restart fentanyl this admission and observe response. Oral Dilaudid is on hold. UA negative at this time. Glucose normal (2) Uncompensated respiratory acidosis: Plan: Likely secondary to encephalopathy from oversedation. Now resolved. CTA of the chest negative for acute PE, CHF, pneumonia (3) Hypovolemia: Plan: Resolved with IV fluid replacement. Creatinine normalized (4) ARNALDO (acute kidney injury): Plan: Mild. Resolved with IV fluid replacement. Held ACEi on admission (5) Elevated troponin I level: Plan: Denies chest pain. Baseline EKG is abnormal however. Will obtain cardiac echo to look for regional wall motion abnormalities. Telemetry. (6) Hyperlipidemia: Plan: Rosuvastatin (7) Type II diabetes mellitus: Plan: Holding Metformin. ADA diet. Sliding scale coverage for now (8) Vitamin D deficiency: Plan: Supplementation daily. (9) Pathological fracture of pelvis: Plan: Supportive care. Pain control measures without excessive narcotic use. Physical therapy (10) Pathological fracture of lumbosacral spine: Plan: Supportive care. Avoid excessive narcotic use (11) Breast cancer metastasized to bone: Plan: Diagnosed via bone biopsy at [facility]. Supportive care. Pain management (12) Macrocytic anemia: Plan: Folic acid and B12 1000 mg has been started (13) Hypomagnesemia: Plan: Mild. Corrected with parenteral replacement. Plan: Disposition to be determined. Await OT and PT assessments and recommendations. Admission and Anticipated Discharge Date Admission Date: February 11, 2022 Subjective Much improved from admission. I suspect her encephalopathy was toxic from excessive narcotics. Her mild acute respiratory failure and mildly elevated hyper Anemia were probably from respiratory depression which has resolved. Troponin is elevated and baseline EKG is abnormal. Will obtain cardiac echo to evaluate left ventricular wall motion. Mild acute kidney injury has resolved with IV fluids. HOSSEIN inhibitor is on hold. Chest CTA negative for PE. Review of Systems Review of Systems: Constitutional-no fever or chills ENT-no blurred vision, no double vision, no epistaxis, no sore throat Respiratory-no cough, no wheezing, no shortness of breath Cardiac-no palpitations, no chest pain, no syncope GI-no nausea, vomiting, diarrhea, melena, hematochezia -no urinary retention, no urinary incontinence, no dysuria, no hematuria Musculoskeletal-no joint pain, no muscle tenderness Skin-no bruising, no rashes, no pruritus Neuro-no isolated weakness, no paresthesia, no weakness Psych-no depression, no anxiety Physical Exam Physical Exam: General-alert and oriented x3, no fevers, no chills HEENT-head atraumatic and normocephalic, TMs intact bilaterally, pupils equal and reactive to light, extraocular muscles intact Neck-no lymphadenopathy or thyromegaly, trachea midline Chest-clear to auscultation percussion. No rales wheezing or rhonchi Cardiac-regular rate and rhythm, normal S1 and S2, no murmurs Abdomen-normal bowel sounds, nontender, no hepatosplenomegaly Extremities-no cyanosis, clubbing, or edema Neuro-cranial nerves II through XII intact, motor and sensory function within normal limits, strength symmetrical , no focal deficits Psych-normal affect, normal mood Results & Data Results & Data ([facility]) Vital Signs (Past 12 Hours) Vital Signs Temp Pulse Pulse Resp BP Pulse Ox 02/12/22 11:13 36.8 C 69 18 133/83 92 02/12/22 11:10 94 02/12/22 11:00 86 L 02/12/22 07:38 36.2 C L 80 18 126/81 92 02/12/22 07:00 89 02/12/22 05:50 92 02/12/22 03:35 36.6 C 67 18 98/57 L 97 02/12/22 02:25 78 28 H 95 Laboratory Results 02/11/22 11:55 02/12/22 10:00 PG Care Time/CCT Total # of Minutes Spent Total Time Spent with Patient: Total time spent is greater than 50% in coordination of care (as documented) at patient's floor/unit and/or counseling patient: Coding Level of Care Code 31574 Subseq Hosp Care Lvl 3 Diagnoses Encephalopathy G93.40 Uncompensated respiratory acidosis E87.2 Hypovolemia E86.1 ARNALDO (acute kidney injury) N17.9 Elevated troponin I level R77.8 Hyperlipidemia E78.5 Type II diabetes mellitus E11.9 Vitamin D deficiency E55.9 Pathological fracture of pelvis M84.454A Pathological fracture of lumbosacral spine M84.48XA Breast cancer metastasized to bone C50.919; C79.51 Macrocytic anemia D53.9 Hypomagnesemia E83.42
--- NOTE | 2022-02-12 13:51 | XCELERA ---
[id number]
[2022-02-12] MEDS: oxyCODONE/ACETAMINOPHEN 5mg/325mg TAB PO PRN (15:22)
[2022-02-13] MEDS: GABAPENTIN 300 MG CAP PO SCH (05:41)
[2022-02-13] MEDS: HEPARIN SOD 5,000 UNIT/0.5 ML VIAL SQ SCH ×2 (05:41→13:31)
[2022-02-13 06:41] LABS: Basophils # (auto) 0.03 K/uL (0-0.2); Basophils % (auto) 0.4 %; Eosinophils # (auto) 0.38 K/uL (0-0.5); Eosinophils % (auto) 4.6 %; Hematocrit (blood only) 38.4 % (37-47); Hemoglobin 12.8 g/dL (12.0-16.0); Immature Granulocytes # (auto) 0.02 K/uL (0.00-0.02); Immature Granulocytes % (auto) 0.2 %; Lymphocytes # (auto) 1.02 K/uL (1.2-3.4); Lymphocytes % (auto) 12.4 %; Mean Corpuscular Hemoglobin 34.3 pg (25-34); Mean Corpuscular Hgb Conc 33.3 g/dL (32-36); Mean Corpuscular Volume 102.9 fL (80-100); Mean Platelet Volume 10.1 fL (7.4-10.4); Monocytes # (auto) 0.81 K/uL (0.11-0.59); Monocytes % (auto) 9.8 %; Neutrophils # (auto) 5.99 K/uL (1.4-6.5); Neutrophils % (auto) 72.6 %; Platelet Count 234 K/uL (130-400); RDW Coefficient of Variation 13.2 % (11.5-14.5); RDW Standard Deviation 49.6 fL (36.4-46.3); Red Blood Count 3.73 M/uL (4.2-5.4); White Blood Count 8.25 K/uL (4.8-10.8)
[2022-02-13 07:04] LABS: BUN Creatinine Ratio 19.3 (10-20); Calcium 9.5 mg/dl (8.5-10.1); Creatinine Clr Calc Pharmacy 60.1 ml/min; Est GFR (African American) 77.7 ml/min; Potassium 4.2 mmol/L (3.5-5.1)
[2022-02-13 07:42] VITALS: BP 130/83; TEMP 99; O2SAT 92
[2022-02-13] MEDS: oxyCODONE/ACETAMINOPHEN 5mg/325mg TAB PO PRN (08:27)
[2022-02-13] MEDS: ROSUVASTATIN CALCIUM 5 MG TAB PO SCH (09:06)
[2022-02-13] MEDS: DOCUSATE SODIUM/SENNA 50/8.6MG TAB PO SCH (09:07)
[2022-02-13] MEDS: FOLIC ACID 1 MG TAB PO SCH (09:08)
[2022-02-13] MEDS: CYANOCOBALAMIN (B-12) 500 MCG TABLET PO SCH (09:08)
[2022-02-13] MEDS: ANASTROZOLE 1 MG TAB PO SCH (09:08)
[2022-02-13] MEDS: PANTOprazole 40 MG TAB PO SCH (09:09)
[2022-02-13] MEDS: METOPROLOL SUCC 50MG EXT REL TAB PO SCH (09:10)
[2022-02-13] MEDS: VENLAFAXINE HCL XR 150 MG CAPXR PO SCH (09:10)
[2022-02-13] MEDS: NYSTATIN POWDER 15GM BTL EXT SCH ×2 (09:11→13:31)
[2022-02-13] MEDS: TRIAMCINOLONE ACET 0.1% CR 80 GM TUBE EXT SCH (09:16)
[2022-02-13] MEDS: INSULIN ASPART PER UNIT SC SCH ×2 (09:16→12:47)
[2022-02-13] MEDS ORDERED: fentaNYL 50 MCG/HR TDSY TD SCH (10:00)
--- NOTE | 2022-02-13 11:50 | Discharge Summary ---
Date of Service February 13, 2022 Admission HPI Per Admitting Provider 71 YOF with past medical history of: Breast Cancer (2002- lumpectomy/chemo/radiation- anastrazole maintenance), DMII, Vitamin D deficiency, HLD, HTN, Depression, Pathological Fracture (01/15- secondary to sacral mass with vertebral and sacral fracture). Patient comes to the EMD today referred from PCP via son secondary to increase in somnolence, confusion, difficulty arousing the patient this morning. The patient is currently accompanied by her sister. The sister reports that this morning the patient's son texted her stating that Harmony (the patient) was having "very bad sounding respirations" and had a very hard time waking her up. He was eventually able to wake her up, but when she did awaken she was confused and agitated/angry. She was to have an appointment with her PCP today, so they called them prior to arrival and was referred to the the EMD. In the EMD the patient had routine labs performed to include UA, ECG, CTA of the chest and CT scan of the head performed. These were negative for acute process or PE. Hospitalist service was consulted for admission. ABG was requested. Patient is awake and confused about the day, she feels thirsty and states she has had decreased appetite and intake, but otherwise just feels confused. She was able to recall that she had a Dr. Appointment today as well as being able to recall her previous stay and transiition to [facility] and to home. She had relative understanding of her medications and new addition of her Fentanyl Patch. Her sister states that she is improved from earlier, but still not at her baseline. She was talking with her via text last night and she was normal. The patient did have her Fentanyl Patch still on, so this was removed. Her labs are reviewed and are notable for ARNALDO, hyomagnesemia, Troponin 0.17, and elevated specific gravity of her Urine. Her toxicology screen was negative for any other agents except opiates. The patient's ABG was consistent with respiratory acidosis- she will be placed on BiPAP. She will be placed on medical telemetry, continue to trend Troponin I. Hydrate with Moffett's solutiion, follow ARNALDO and adjust her medications based on her crcl. Patient was recently admitted 01/[address] scan to have lytic lesion involving majority of the sacrum with mass effect that was causing her increase in pain and radiculopathy- she was transferred to [facility] for biopsy. She had IR biopsy performed 01/10/22 with pathology being reported as consistent with metastatic breast cancer. She did receive palliative radiation to the bone mets at the sacral area x2. She was then transferred to [facility]. Her original pain medication plan was gabapentin 300mg and oral Dilaudid. Following her discharge from [facility] she remained on her Gabapentin, Hydromorphone and had Fentanyl patch 50mcg q72 hours placed. Principal Diagnosis Toxic/metabolic encephalopathy, acute hypercapnic respiratory failure Discharge Exam General-alert and oriented x3, no fevers, no chills HEENT-head atraumatic and normocephalic, TMs intact bilaterally, pupils equal and reactive to light, extraocular muscles intact Neck-no lymphadenopathy or thyromegaly, trachea midline Chest-clear to auscultation percussion. No rales wheezing or rhonchi Cardiac-regular rate and rhythm, normal S1 and S2, no murmurs Abdomen-normal bowel sounds, nontender, no hepatosplenomegaly Extremities-no cyanosis, clubbing, or edema Neuro-cranial nerves II through XII intact, motor and sensory function within normal limits, strength symmetrical , no focal deficits Psych-normal affect, normal mood Discharge Data Allergies Allergy/AdvReac Type Severity Reaction Status Date / Time No Known Allergies Allergy Unknown Verified 02/11/22 15:19 Consultations 02/11/22 15:07 ED Decision to Admit Stat Ordered Studies 02/11/22 11:42 CT head/brain wo con Stat 02/11/22 13:01 CT angio chest PE protocol Stat 02/11/22 16:29 US venous doppler LE RT Routine Hospital Course (1) Encephalopathy: Acute metabolic encephalopathy with respiratory acidosis- resolved . Fentanyl patch has been restarted today since she uses it chronically at home. Held oral Dilaudid while hospitalized. UA negative for UTI. (2) Uncompensated respiratory acidosis: Appears to be due to inadvertent narcotic overdose. Now resolved. CTA of the chest negative for acute PE, pneumonia, CHF (3) Hypovolemia: Resolved with IV fluids. (4) ARNALDO (acute kidney injury): Resolved with IV fluids. HOSSEIN inhibitor will be restarted at discharge (5) Elevated troponin I level: Without dynamic ECG changes. No chest pain. No regional wall motion abnormalities on echo. No evidence of acute coronary syndrome (6) Hyperlipidemia: Continue Rosuvastatin (7) Type II diabetes mellitus: Hold Metformin while hospitalized. Restart at discharge.. ADA diet. Sliding scale coverage as needed (8) Vitamin D deficiency: on Vitamin D as outpatient (9) Pathological fracture of pelvis: Fentanyl restarted at discharge. Pain control measures. (10) Pathological fracture of lumbosacral spine: above (11) Breast cancer metastasized to bone: Diagnosed via bone biopsy at [facility]- - As above (12) Macrocytic anemia: Folic acid and B12 1000 mg started MCV 106 (13) Hypomagnesemia: Corrected (14) Toxic encephalopathy: Due to inadvertent narcotic overdosage. Now resolved (15) Folate deficiency: Replacement therapy Discharge home today, February 13 Total Time Total Time Spent Total Time Spent (In Minutes): 35 minutes Discharge Plan Discharge Items Patient Disposition: Home - Self-Care Reason For Visit: ACUTE ENCEPHALOPATHY Discharge Diagnosis: Accidental narcotic overdosage, acute hypercapnic respiratory failure, toxic encephalopathy Activity: Resume your previous activity Non-emergency contact: Primary Care Provider Call non-emergency contact if: you have any medication questions Follow-up/Referrals: Judie Ojeda CRNP [Primary Care Provider] - Diet: Carb Consistent or DM2 Addtl Attending Provider Instructions: Continue fentanyl patch at 50 mcg every 3 days. Be careful with Dilaudid usage Pending Studies at Discharge: No Stand-Alone Forms: My [facility] [email or web address], Smoking Cessation Medications and DC Order Prescriptions: New fentanyl 50 mcg/hr patch 72 hour 1 patch transdermal Q72H Qty: 5 RF: 0 Continued omeprazole 20 mg capsule,delayed release(DR/EC) 20 mg PO QAM Qty: 90 RF: 3 losartan 100 mg tablet 100 mg PO QAM Qty: 90 RF: 3 metoprolol succinate 100 mg tablet extended release 24 hr 100 mg PO QAM Qty: 30 RF: 5 clonazepam 0.5 mg tablet 0.5 mg PO UD PRN (Reason: anxiety) Qty: 90 RF: 0 acetaminophen 325 mg tablet 650 mg PO Q6H PRN (Reason: pain, mild) RF: 0 anastrozole 1 mg tablet 1 mg PO DAILY RF: 0 gabapentin 300 mg capsule 300 mg PO Q8H RF: 0 hydromorphone 2 mg tablet 2 mg PO Q4H PRN (Reason: pain) RF: 0 multivitamin with minerals Capsule 1 cap PO BID RF: 0 venlafaxine 150 mg capsule,extended release 24hr 150 mg PO DAILY RF: 0 metformin 500 mg tablet 500 mg PO QAM RF: 0 rosuvastatin 5 mg tablet 5 mg PO QAM RF: 0 cholecalciferol (vitamin D3) 50 mcg (2,000 unit) capsule 50 mcg PO QAM RF: 0 Discontinued fentanyl 75 mcg/hr patch 72 hour 1 patch transdermal Q72H Qty: 10 RF: 0 Discharge Orders: Discharge Order (Routine); Ordered 02/13/22 Ordered By: Baltazar Avila Admission Data Admit Date/Time: 02/11/22 16:13 Attending Provider: Baltazar Avila Admit Provider: Giovanni Gonzales Primary Care Provider: Judie Ojeda Other Providers: Giovanni Gonzales Coding Level of Care Code D/C DAY MANAGEMENT >30 MINS Diagnoses Encephalopathy G93.40 Uncompensated respiratory acidosis E87.2 Hypovolemia E86.1 ARNALDO (acute kidney injury) N17.9 Elevated troponin I level R77.8 Hyperlipidemia E78.5 Type II diabetes mellitus E11.9 Vitamin D deficiency E55.9 Pathological fracture of pelvis M84.454A Pathological fracture of lumbosacral spine M84.48XA Breast cancer metastasized to bone C50.919; C79.51 Macrocytic anemia D53.9 Hypomagnesemia E83.42 Toxic encephalopathy G92.9 Folate deficiency E53.8
[2022-02-13 13:27] VITALS: PULSE 77
[2022-02-13] MEDS ORDERED: CHECK fentaNYL PATCH PLACEMENT SCH (16:00)
[2022-02-14 02:36] LABS: Codeine Urine NEGATIVE ng/mL (<50); Hydrocodone Urine NEGATIVE ng/mL (<50); Hydromor Urine 2070 ng/mL (<50); Morphine Urine NEGATIVE ng/mL (<50); Norhydrocodone Conf Ur NEGATIVE ng/mL (<50); Noroxycodone Urine NEGATIVE ng/mL (<50); Oxycodone Urine NEGATIVE ng/mL (<50); Oxymorph Urine NEGATIVE ng/mL (<50)
== END 2022-02-13 15:26 | disposition home or self-care (01) ==
LOC: 2N 11:19 → ED 11:19 → SUATTDRO 16:13 → 2N 18:08

== ENCOUNTER 2022-02-22 16:34 | Inpatient (IN) ==
[2022-02-22 17:39] LABS: Basophils # (auto) 0.03 K/uL (0-0.2); Basophils % (auto) 0.4 %; Eosinophils # (auto) 0.33 K/uL (0-0.5); Hematocrit (blood only) 36.9 % (37-47); Hemoglobin 12.5 g/dL (12.0-16.0); Immature Granulocytes # (auto) 0.03 K/uL (0.00-0.02); Immature Granulocytes % (auto) 0.4 %; Lymphocytes # (auto) 1.04 K/uL (1.2-3.4); Lymphocytes % (auto) 12.6 %; Mean Corpuscular Hemoglobin 34.2 pg (25-34); Mean Corpuscular Hgb Conc 33.9 g/dL (32-36); Mean Corpuscular Volume 100.8 fL (80-100); Mean Platelet Volume 10.1 fL (7.4-10.4); Monocytes # (auto) 0.53 K/uL (0.11-0.59); Monocytes % (auto) 6.4 %; Neutrophils % (auto) 76.2 %; Platelet Count 309 K/uL (130-400); RDW Coefficient of Variation 13.4 % (11.5-14.5); RDW Standard Deviation 49.9 fL (36.4-46.3); Red Blood Count 3.66 M/uL (4.2-5.4); White Blood Count 8.26 K/uL (4.8-10.8)
[2022-02-22] MEDS ORDERED: SODIUM CHLORIDE 0.9% 1000ML 1,000 ML IV ONE (17:39)
--- NOTE | 2022-02-22 17:44 | Emergency Department Note ---
History of Present Illness General Chief complaint: Referred by Doctor Stated complaint: DR CASTRO SENT FOR IV, ABNORMAL KIDNEY LABS Time Seen by Provider: 02/22/22 17:19 History of Present Illness Maximum Pain Intensity: 10 71-year-old female presents to the ED with a chief complaint of elevated creatinine. The patient states that she was seen by her oncologist, Dr. Castro today. They did some routine outpatient blood work and called her stating that her creatinine was 5 and told her to come to the ER. She denies any specific complaints. She states that her appetite is poor but she has been drinking fluids. She has a history of breast cancer in 2002 with return of the breast c ancer recently with reported metastasis including the sacrum for which she has had radiation therapy to that area about 5 or 6 weeks ago. The patient denies any vomiting or diarrhea. No additional complaints at this time. She does urinate several times a day. Home Medications Medication Instructions Recorded Confirmed Type omeprazole 20 mg capsule,delayed 20 mg PO QAM #90 cap 03/12/21 02/11/22 Rx release losartan 100 mg tablet 100 mg PO QAM #90 tab 03/28/21 02/11/22 Rx metoprolol succinate 100 mg 100 mg PO QAM #30 tab 06/19/21 02/11/22 Rx tablet,extended release 24 hr clonazepam 0.5 mg tablet 0.5 mg PO UD PRN #90 tab 01/03/22 02/11/22 Rx cholecalciferol (vitamin D3) 50 50 mcg PO QAM 01/06/22 02/11/22 History mcg (2,000 unit) capsule metformin 500 mg tablet 500 mg PO QAM 01/06/22 02/11/22 History rosuvastatin 5 mg tablet 5 mg PO QAM 01/06/22 02/11/22 History acetaminophen 325 mg tablet 650 mg PO Q6H PRN tab 02/08/22 02/11/22 History anastrozole 1 mg tablet 1 mg PO DAILY 02/08/22 02/11/22 History gabapentin 300 mg capsule 300 mg PO Q8H cap 02/08/22 02/11/22 History hydromorphone 2 mg tablet 2 mg PO Q4H PRN 02/08/22 02/11/22 History multivitamin with minerals 1 cap PO BID cap 02/08/22 02/11/22 History venlafaxine 150 mg 150 mg PO DAILY 02/08/22 02/11/22 History capsule,extended release 24 hr fentanyl 50 mcg/hr transdermal 1 patch TRANSDERMAL Q72H #5 ea 02/13/22 Rx patch Allergies Allergy/AdvReac Type Severity Reaction Status Date / Time No Known Allergies Allergy Unknown Verified 02/11/22 15:19 Past Med/Surg History Medical History Bilateral breast cancer [id number]--sx/chemo/radiation Breast cancer metastasized to bone 2021 Depression with anxiety Diverticular disease Hyperlipidemia Hypertension Mild mitral valve prolapse hx of; 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/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 Children do You have: 1 Feels Safe at Home: Yes Seatbelt Use: always Sunscreen Use: Yes Assistive Devices: Glasses and Walker Review of Systems A total of 10 systems reviewed and were otherwise negative Physical Exam Vital Signs Vital Signs - 24 hr 02/22/22 16:43 Temperature 36.5 C Temperature Source Temporal Artery Scan Pulse Rate 74 Respiratory Rate 20 Respiratory Effort / Characteristics Non-Labored Spontaneous Respiratory Depth Normal Blood Pressure 101/63 Blood Pressure Mean 75 Blood Pressure Position Standing Pulse Oximetry 100 Oxygen Delivery Method Room Air Sepsis Recent Fever Within 48 Hours No Sepsis New/Unexplained Change in Mental Status No Sepsis Action Taken by Nursing No Action Required CONSTITUTIONAL/VITAL SIGNS: Reviewed / noted above. GENERAL: Non-toxic in appearance. INTEGUMENTARY: Warm, dry, and [place]. HEAD: Normocephalic. EYES: without scleral icterus or trauma. ENT/OROPHARYNX: clear and moist. LYMPHADENOPATHY/NECK: Is supple without lymphadenopathy or meningismus. RESPIRATORY: Clear to auscultation bilaterally. No increased work of breathing. CARDIOVASCULAR: Regular rate and rhythm. GI/ABDOMEN: Soft and nontender. No organomegaly or pulsatile mass. EXTREMITIES: Warm and well perfused. BACK: No CVA tenderness. NEUROLOGICAL: Intact without focal deficits. PSYCHIATRIC: normal affect. MUSCULOSKELETAL: Normally developed with good muscle tone. TRIAGE NURSING DOCUMENTATION REVIEWED. Medical Decision Making Differential Diagnosis Differential includes acute coronary syndrome, myocardial infarction, CVA, TIA, anemia, infection, pneumonia, UTI, pyelonephritis, poor nutrition, dehydration, electrolyte disturbance,hypoglycemia. Medical Records Attestation: I reviewed the patient's medical records. Home Medications Current Medication List: was personally reviewed by me Laboratory Data Attestation: I reviewed the patient's lab results. Result diagrams: 02/22/22 17:17 02/22/22 17:17 Lab Results 02/22/22 02/22/22 Range/Units 17:17 17:17 WBC 8.26 (4.8-10.8) K/uL RBC 3.66 L (4.2-5.4) M/uL Hgb 12.5 (12.0-16.0) g/dL Hct 36.9 L (37-47) % MCV 100.8 H (80-100) fL MCH 34.2 H (25-34) pg MCHC 33.9 (32-36) g/dL RDW Std Deviation 49.9 H (36.4-46.3) fL RDW Coeff of Cheri 13.4 (11.5-14.5) % Plt Count 309 (130-400) K/uL MPV 10.1 (7.4-10.4) fL Immature Gran % (Auto) 0.4 % Neut % (Auto) 76.2 % Lymph % (Auto) 12.6 % [place] % (Auto) 6.4 % Eos % (Auto) 4.0 % Baso % (Auto) 0.4 % Neut # (Auto) 6.30 (1.4-6.5) K/uL Lymph # (Auto) 1.04 L (1.2-3.4) K/uL [place] # (Auto) 0.53 (0.11-0.59) K/uL Eos # (Auto) 0.33 (0-0.5) K/uL Baso # (Auto) 0.03 (0-0.2) K/uL Immature Gran # (Auto) 0.03 H (0.00-0.02) K/uL Sodium 140 (136-145) mmol/L Potassium 4.9 (3.5-5.1) mmol/L Chloride 108 H (98-107) mmol/L Carbon Dioxide 21 (21-32) mmol/L Anion Gap 11 (3-11) BUN 49 H (6-23) mg/dl Creatinine 4.73 H* (0.6-1.2) mg/dl Est Cr Clr Drug Dosing Not Reportable Est GFR ( Amer) 10.2 ml/min Est GFR (Non-Af Amer) 8.8 ml/min BUN/Creatinine Ratio 10.4 (10-20) Glucose 111 H (70-99(Fasting)) mg/dl Calcium 9.4 (8.5-10.1) mg/dl Total Bilirubin 0.3 (0.2-1.0) mg/dl AST 16 (13-39) U/L ALT 8 (7-52) U/L Alkaline Phosphatase 70 (34-104) U/L Total Protein 7.2 (6.0-8.3) gm/dl Albumin 3.9 (3.4-5.0) gm/dl Globulin 3.3 (2.5-4.0) gm/dl Albumin/Globulin Ratio 1.2 (0.9-2) MDM Narrative Patient presents with elevated creatinine and recent decrease in appetite but has been producing urine. Outpatient blood work suggest her creatinine was elevated at 5.0. Typically it is within normal limits. CBC is unremarkable. BUN is 49 creatinine is 4.73 today. Creatinine on 02/13/2022 was 1.88. The patient was treated with some IV fluids. She was given a liter of normal saline. The patient will be seen by the hospitalist for further inpatient e valuation and care. Impression & Plan Acute kidney injury, Acute dehydration, Metastatic cancer Discharge Plan Visit Data Chief Complaint: Referred by Doctor Stated Complaint: CASTRO SENT FOR IV, ABNORMAL KIDNEY LABS ED Provider: Moises Dao Discharge Problem: Acute kidney injury, Acute dehydration, Metastatic cancer Patient Disposition: Admitted As Inpatient Forms Stand Alone Forms: [facility] Prescriptions Prescriptions: No Action omeprazole 20 mg capsule,delayed release(DR/EC) 20 mg PO QAM Qty: 90 RF: 3 losartan 100 mg tablet 100 mg PO QAM Qty: 90 RF: 3 metoprolol succinate 100 mg tablet extended release 24 hr 100 mg PO QAM Qty: 30 RF: 5 clonazepam 0.5 mg tablet 0.5 mg PO UD PRN (Reason: anxiety) Qty: 90 RF: 0 acetaminophen 325 mg tablet 650 mg PO Q6H PRN (Reason: pain, mild) RF: 0 anastrozole 1 mg tablet 1 mg PO DAILY RF: 0 gabapentin 300 mg capsule 300 mg PO Q8H RF: 0 hydromorphone 2 mg tablet 2 mg PO Q4H PRN (Reason: pain) RF: 0 multivitamin with minerals Capsule 1 cap PO BID RF: 0 venlafaxine 150 mg capsule,extended release 24hr 150 mg PO DAILY RF: 0 metformin 500 mg tablet 500 mg PO QAM RF: 0 rosuvastatin 5 mg tablet 5 mg PO QAM RF: 0 cholecalciferol (vitamin D3) 50 mcg (2,000 unit) capsule 50 mcg PO QAM RF: 0 fentanyl 50 mcg/hr patch 72 hour 1 patch transdermal Q72H Qty: 5 RF: 0 Referrals Referrals: Judie Ojeda CRNP [Primary Care Provider] -
[2022-02-22 18:02] LABS: Alanine Aminotransferase 8 U/L (7-52); Albumin Globulin Ratio 1.2 (0.9-2); Albumin Level 3.9 gm/dl (3.4-5.0); Alkaline Phosphatase 70 U/L (34-104); Anion Gap 11 (3-11); Aspartate Aminotransferase 16 U/L (13-39); BUN Creatinine Ratio 10.4 (10-20); Bilirubin,Total 0.3 mg/dl (0.2-1.0); Blood Urea Nitrogen 49 mg/dl (6-23); Calcium 9.4 mg/dl (8.5-10.1); Carbon Dioxide 21 mmol/L (21-32); Chloride 108 mmol/L (98-107); Est GFR (African American) 10.2 ml/min; Est GFR (Non-African American) 8.8 ml/min; Globulin 3.3 gm/dl (2.5-4.0); Glucose 111 mg/dl (70-99(Fasting)); Potassium 4.9 mmol/L (3.5-5.1); Sodium 140 mmol/L (136-145); Total Protein 7.2 gm/dl (6.0-8.3)
--- NOTE | 2022-02-22 19:14 | History & Physical Report ---
Date of Service February 22, 2022 Assessment & Plan (1) Acute kidney injury: Plan: Patient is elevation of BUN and creatinine without changes in bicarbonate or potassium. Patient will have an ultrasound to look for postobstructive changes. Patient be hydrated with Normosol at this point time, Lizarraga catheter will be placed and we will check a urinalysis to look for sediment. Creatinine does not improve or sediment looks to be active we may have a nephrology consultation On the CT scan of the lumbar spine from January 06, 2022 there was a description of a large soft tissue mass arising from the sacrum with invasion of the spinal canal involving the iliac bones certainly there could be concerned that this may be impacting her ureters and therefore we will image (2) Metastatic cancer: Plan: Static breast cancer as mentioned with recent radiation therapy follows Dr. Vasquez, continues on anastrozole, fentanyl patch, gabapentin, oral hydromorphone., Oral hydromorphone dose will be cut, gabapentin dose reduced and watch clinical symptoms cautiously with renal dysfunction (3) Hypertension: Plan: For history of hypertension she is maintained on metoprolol succinate 100 her ARNALDO losartan will be held (4) Type II diabetes mellitus: Plan: Patient typically takes Metformin which will be help with her renal dysfunction be on sliding scale insulin at this time (5) Depression with anxiety: Plan: Patient will be continued on her venlafaxine and cautiously on lower doses of clonazepam (6) Folate deficiency: Plan: Continue folate repletion (7) Conjunctivitis: Plan: Patient has bilateral conjunctivitis with some drainage and matting. I culture be obtained and we will start her on Genoptic solution Plan: Heparin for DVT prevention given her renal dysfunction History of Present Illness Primary Care Provider: MARKUS Cabezas 71-year-old female sent to the hospital due to acute kidney injury as discovered by elevated creatinine on outpatient blood work by her oncologist Dr. Vasquez. She sees Dr. Vasquez for metastatic breast cancer. 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 Patient was discharged from our hospital on February 13 after admission for encephalopathy and hypercapnic respiratory failure which is felt secondary to pain medications At the time of discharge from our facility your creatinine 0.88, no imaging was done in the emergency department to see if there is any post renal obstructive disease from lymphadenopathy or even radiation changes that may cause hydronephrosis., The fact that she has normal potassium and no significant anion gap or acidemia suggested by her chemistries likely suggest this may be some chronic changes over time from her discharge Allergies Allergy/AdvReac Type Severity Reaction Status Date / Time No Known Allergies Allergy Unknown Verified 02/22/22 18:43 Home Medications Medication Instructions Recorded Confirmed Type omeprazole 20 mg capsule,delayed 20 mg PO QAM #90 cap 03/12/21 02/22/22 Rx release losartan 100 mg tablet 100 mg PO QAM #90 tab 03/28/21 02/22/22 Rx metoprolol succinate 100 mg 100 mg PO QAM #30 tab 06/19/21 02/22/22 Rx tablet,extended release 24 hr cholecalciferol (vitamin D3) 50 50 mcg PO QAM 01/06/22 02/22/22 History mcg (2,000 unit) capsule metformin 500 mg tablet 500 mg PO QAM 01/06/22 02/22/22 History rosuvastatin 5 mg tablet 5 mg PO QAM 01/06/22 02/22/22 History acetaminophen 325 mg tablet 650 mg PO Q6H PRN tab 02/08/22 02/22/22 History anastrozole 1 mg tablet 1 mg PO DAILY 02/08/22 02/22/22 History gabapentin 300 mg capsule 300 mg PO Q8H cap 02/08/22 02/22/22 History hydromorphone 2 mg tablet 2 mg PO Q4H PRN 02/08/22 02/22/22 History multivitamin with minerals 1 cap PO BID cap 02/08/22 02/22/22 History venlafaxine 150 mg 150 mg PO DAILY 02/08/22 02/22/22 History capsule,extended release 24 hr fentanyl 50 mcg/hr transdermal 1 patch TRANSDERMAL Q72H #5 ea 02/13/22 02/22/22 Rx patch clonazepam 0.5 mg tablet 0.5 mg PO QAM PRN 02/22/22 02/22/22 History clonazepam 0.5 mg tablet 1 mg PO HS PRN 02/22/22 02/22/22 History Past Med/Surg History Medical History Bilateral breast cancer [id number]--sx/chemo/radiation Breast cancer metastasized to bone 2021 Depression with anxiety Diverticular disease Hyperlipidemia Hypertension Mild mitral valve prolapse hx of; 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/no paper coater Osteoarthritis Type II diabetes mellitus Vitamin D deficiency Surgical History H/O tubal ligation History of appendectomy History of section History of colonoscopy History of esophagogastroduodenoscopy (EGD) History of left breast biopsy malignant History of lumpectomy of both breasts x2 History of right breast biopsy malignant History of tooth extraction History of wisdom tooth extraction Status post correction of deviated nasal septum Family History Grandmother (Maternal) AAA (abdominal aortic aneurysm) Family history of diabetes mellitus Mother No problems noted. 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 Children do You have: 1 Feels Safe at Home: Yes Seatbelt Use: always Sunscreen Use: Yes Assistive Devices: Glasses and Walker Review of Systems 2 Review of Systems: Mild distress and fatigue no headache, no visual changes no speech or swallowing issues no chest pain, pressure or palpitations no shortness of breath, cough or wheezes no abdominal pain, nausea or vomiting, diarrhea or constipation no dysuria, hematuria or frequency no focal joint pain or swelling no back pain, CVA tenderness or radicular pain no bruising, bleeding or rashes no focal signs of weakness or numbness or altered sensation no complaints of anxiety or depression.. Physical Exam Physical Exam: The patient appeared well nourished and normally developed. Vital signs as documented. Head exam is normocephalic atraumatic Neck is without JVD, thyromegaly, or carotid bruits. Lungs are clear to auscultation, no focal loss of breath sounds Cardiac exam, Rhythm is regular.. No murmurs, rubs or gallops. Abdominal exam reveals normal bowel sounds, soft non tender, no masses Extremities are nonedematous and both pedal pulses are present Neurologic exam is alert and oriented, no focal loss of strength or sensation Skin is without bruises or rashes Psychologically is without concerns for anxiety or depression.. Results & Data Results & Data ([facility]) Vital Signs (Past 12 Hours) Vital Signs Temp Pulse Resp BP Pulse Ox 02/22/22 16:43 97.7 F 74 20 101/63 100 PG Care Time/CCT Total # of Minutes Spent Total Time Spent with Patient: Total time spent is greater than 50% in coordination of care (as documented) at patient's floor/unit and/or counseling patient: Coding Level of Care Code 20578 Initial Inpt Care Lvl 3 Diagnoses Acute kidney injury N17.9 Metastatic cancer C79.9 Folate deficiency E53.8 Hypertension I10 Type II diabetes mellitus E11.9 Depression with anxiety F41.8 Conjunctivitis H10.9
[2022-02-22] MEDS ORDERED: CARBOHYDRATES FOR HYPOGLYCEMIA PO PRN (20:58)
[2022-02-22] MEDS ORDERED: GLUCOSE 10 TABS/TUBE PO PRN (20:58)
[2022-02-22] MEDS ORDERED: GLUCOSE 40% GEL 15 GM TUBE PO PRN (20:58)
[2022-02-22] MEDS ORDERED: ACETAMINOPHEN 325 MG TAB PO PRN ×2 (20:58)
[2022-02-22] MEDS ORDERED: HYDROmorphone HCL 2 MG TAB PO PRN (20:58)
[2022-02-22] MEDS ORDERED: GLUCAGON FOR INJ 1 MG VIAL SQ PRN (20:58)
[2022-02-22] MEDS ORDERED: DEXTROSE 50% 50 ML SYRINGE IV PRN (20:58)
[2022-02-22] MEDS ORDERED: fentaNYL 50 MCG/HR TDSY TD SCH (21:00)
[2022-02-22] MEDS: NORMOSOL-R 1,000 ML IV SCH (21:30)
[2022-02-22] MEDS: INSULIN ASPART PER UNIT SC SCH (22:18)
[2022-02-22] MEDS: GENTAMICIN SULFATE 0.3% OP SOLN 5 ML BTL OP SCH (22:32)
[2022-02-22] MEDS: HEPARIN SOD 5,000 UNIT/0.5 ML VIAL SQ SCH (22:32)
[2022-02-22] MEDS: clonazePAM 0.5 MG TAB PO PRN (23:17)
[2022-02-23] MEDS: CHECK fentaNYL PATCH PLACEMENT SCH ×2 (00:35→09:26)
[2022-02-23 00:53] LABS: Appearance Urine Clear (Clear); Bacteria Urine Automated Negative (Negative); Bilirubin Urine Negative (Negative); Blood Urine 1+ (Negative); Color Urine Yellow; Epithelial Cell Urine Auto >30 /lpf (0-5); Glucose Urine UA Negative (Negative); Ketones Urine Trace (Negative); Leukocyte Esterase Urine 1+ (Negative); Nitrite Urine Negative (Negative); Protein Urine 1+ (Negative); Specific Gravity Urine 1.019 (1.000-1.030); Urobilinogen Urine Negative (Negative)
[2022-02-23 01:12] LABS: Renal Epithelial Cells Urine 0-5 /lpf (0-5)
[2022-02-23 01:13] LABS: Creatinine Urine Random 141.4 mg/dl
[2022-02-23] MEDS: NORMOSOL-R 1,000 ML IV SCH ×2 (06:06→14:31)
[2022-02-23 06:28] LABS: Hematocrit (blood only) 36.3 % (37-47); Mean Corpuscular Hemoglobin 33.6 pg (25-34); Mean Corpuscular Hgb Conc 33.1 g/dL (32-36); Mean Corpuscular Volume 101.7 fL (80-100); Platelet Count 280 K/uL (130-400); RDW Coefficient of Variation 13.2 % (11.5-14.5); RDW Standard Deviation 49.8 fL (36.4-46.3); Red Blood Count 3.57 M/uL (4.2-5.4); White Blood Count 6.44 K/uL (4.8-10.8)
[2022-02-23 06:44] LABS: Estimated Average Glucose 100 mg/dl; Hemoglobin A1C 5.1 % (4.5-5.6)
[2022-02-23 06:47] LABS: BUN Creatinine Ratio 12.7 (10-20); Calcium 9.1 mg/dl (8.5-10.1); Creatinine Clr Calc Pharmacy 15.2 ml/min; Est GFR (African American) 14.5 ml/min; Est GFR (Non-African American) 12.5 ml/min; Magnesium 1.4 mg/dl (1.7-2.4); Potassium 4.5 mmol/L (3.5-5.1)
--- NOTE | 2022-02-23 07:52 | Ultrasound Report ---
RENAL ULTRASOUND CLINICAL HISTORY: Evaluate for obstruction. COMPARISON STUDY: CT of the abdomen and pelvis June 07, 2019. TECHNIQUE: Sonography of the kidneys and the urinary bladder was performed. FINDINGS: There is no hydronephrosis. The right kidney measures 9.3 x 4.5 x 5.9 cm and the left kidne y measures 10.5 x 5.6 x 4.6 cm. There is a 2.1 cm cyst within the upper pole of the right kidney. No renal calculi are identified by sonography. Ureteral jets were not visualized. IMPRESSION: 1. No hydronephrosis. 2. 2.1 cm right renal cyst. ACT 112: Negative or not required by law. Electronically signed by: Hakeem Rico M.D. 02/23/2022 7:51 AM
[2022-02-23] MEDS: INSULIN ASPART PER UNIT SC SCH ×3 (09:25→18:31)
[2022-02-23] MEDS: GENTAMICIN SULFATE 0.3% OP SOLN 5 ML BTL OP SCH ×2 (09:26→14:33)
[2022-02-23] MEDS: GABAPENTIN 100 MG CAP PO SCH (09:26)
[2022-02-23] MEDS: ANASTROZOLE 1 MG TAB PO SCH (09:26)
[2022-02-23] MEDS: VENLAFAXINE HCL XR 150 MG CAPXR PO SCH (09:27)
[2022-02-23] MEDS: HEPARIN SOD 5,000 UNIT/0.5 ML VIAL SQ SCH ×2 (09:27→20:43)
[2022-02-23] MEDS: METOPROLOL SUCC 50MG EXT REL TAB PO SCH (09:27)
[2022-02-23] MEDS: PANTOprazole 40 MG TAB PO SCH (09:27)
[2022-02-23] MEDS: MAGNESIUM SULFATE / D5W 1 GM/100 ML BAG IV SCH ×3 (10:23→14:32)
--- NOTE | 2022-02-23 11:48 | Hospitalist Progress Note ---
Date of Service February 23, 2022 Assessment & Plan (1) Acute kidney injury: Plan: Patient is elevation of BUN and creatinine without changes in bicarbonate or potassium. Renal US r/o obstructive cause without hydronephrosis UA unremarkable for infection Cr improving from 4.73 to 3.53 with IV fluids also suggestive of just dehydration. Maintain martinez catheter - can likely be removed tomorrow (2) Metastatic cancer: Plan: Static breast cancer as mentioned with recent radiation therapy follows Dr. Vasquez, continues on anastrozole, gabapentin, oral hydromorphone., Oral hydromorphone dose will be cut, gabapentin dose reduced and watch clinical symptoms cautiously with renal dysfunction Per son Dr Vasquez recently d/c the Fentanyl patch as this was making her too drowsy which reduced the amount she ate and drank - she was recently admitted for toxic encephalopathy suspected due to taking too much opiates with the gabapentin. (3) Hypertension: Plan: For history of hypertension she is maintained on metoprolol succinate 100mg PO daily. Continue to hold losartan due to ARNALDO (4) Type II diabetes mellitus: Plan: Patient typically takes Metformin Given low glucose levels no need to keep checking these (5) Depression with anxiety: Plan: Patient will be continued on her venlafaxine and cautiously on lower doses of clonazepam (6) Folate deficiency: Plan: Continue folate repletion (7) Conjunctivitis: Plan: Patient has bilateral conjunctivitis with some drainage and matting. Switch to ofloxacin eye drops QID Improving per patient Plan: VTE Prophylaxis - Heparin 5000 units BID Diet - dialysis renal Disposition - continue on med/surg Admission and Anticipated Discharge Date Admission Date: February 22, 2022 Subjective Martinez catheter in place with good urine output. No abdominal pain or back pain. She reports not eating or drinking much in the last week. Son called in and reports Dr Vasquez wanted her to stop Fentanyl due to drowsiness. She appears very sleepy today. Review of Systems Review of Systems: All systems reviewed & are unremarkable except as noted in Subjective Physical Exam Constitutional: WD/WN, vitals as above Eyes: + conjunctival abnormality (erythematous with telma thick discharge from right eye) ENMT: Mouth: oral mucous membranes not dry Neck: trachea midline, no thyromegaly Respiratory: normal respiratory effort, lungs clear to auscultation Cardiovascular: RRR, no murmur, no edema Gastrointestinal (Abdomen): Percussion/Palpation: abdomen soft; abdomen nontender Musculoskeletal: no cyanosis or clubbing, extremities motor strength 5/5 Skin: no rashes, warm and dry Neurologic: moves all extremities and awake; not confused Psychiatric: A+Ox3, euthymic affect (falls back to sleep quickly) Genitourinary: no CVA tenderness Results & Data Results & Data ([facility]) Vital Signs (Past 12 Hours) Vital Signs Temp Pulse Resp BP Pulse Ox 02/23/22 08:08 36.7 C 78 18 167/98 H 95 PG Care Time/CCT Total # of Minutes Spent Total Time Spent with Patient: Total time spent is greater than 50% in coordination of care (as documented) at patient's floor/unit and/or counseling patient: Coding Level of Care Code 79683 Subseq Hosp Care Lvl 2 Diagnoses Acute kidney injury N17.9 Metastatic cancer C79.9 Hypertension I10 Type II diabetes mellitus E11.9 Depression with anxiety F41.8 Folate deficiency E53.8 Conjunctivitis H10.9
[2022-02-23] MEDS: OFLOXACIN 0.3% 75 DROPS/5 ML BTL OPB SCH ×3 (15:48→20:43)
[2022-02-23] MEDS ORDERED: ONDANSETRON INJ 2 MG/ML 2 ML VIAL IV PRN (18:15)
[2022-02-23] MEDS: LACTATED RINGER'S 1,000 ML IV SCH (19:43)
[2022-02-23] MEDS: clonazePAM 0.5 MG TAB PO PRN (22:59)
[2022-02-24] MEDS: LACTATED RINGER'S 1,000 ML IV SCH ×3 (04:14→20:15)
[2022-02-24 06:04] LABS: Hematocrit (blood only) 34.7 % (37-47); Hemoglobin 11.7 g/dL (12.0-16.0); Mean Corpuscular Hemoglobin 33.6 pg (25-34); Mean Corpuscular Hgb Conc 33.7 g/dL (32-36); Mean Corpuscular Volume 99.7 fL (80-100); Platelet Count 305 K/uL (130-400); RDW Coefficient of Variation 13.1 % (11.5-14.5); RDW Standard Deviation 47.4 fL (36.4-46.3); Red Blood Count 3.48 M/uL (4.2-5.4); White Blood Count 8.74 K/uL (4.8-10.8)
[2022-02-24 06:26] LABS: Creatinine Clr Calc Pharmacy 25.5 ml/min; Est GFR (African American) 27.8 ml/min; Magnesium 1.8 mg/dl (1.7-2.4); Potassium 4.3 mmol/L (3.5-5.1)
[2022-02-24] MEDS: ANASTROZOLE 1 MG TAB PO SCH (08:03)
[2022-02-24] MEDS: METOPROLOL SUCC 50MG EXT REL TAB PO SCH (08:03)
[2022-02-24] MEDS: VENLAFAXINE HCL XR 150 MG CAPXR PO SCH (08:03)
[2022-02-24] MEDS: GABAPENTIN 100 MG CAP PO SCH (08:03)
[2022-02-24] MEDS: HEPARIN SOD 5,000 UNIT/0.5 ML VIAL SQ SCH ×2 (08:03→20:12)
[2022-02-24] MEDS: PANTOprazole 40 MG TAB PO SCH (08:03)
[2022-02-24] MEDS: OFLOXACIN 0.3% 75 DROPS/5 ML BTL OPB SCH ×4 (08:04→20:12)
--- NOTE | 2022-02-24 11:42 | Hospitalist Progress Note ---
Date of Service February 24, 2022 Assessment & Plan (1) Acute kidney injury: Plan: Baseline Cr. ~1.0; presented with Cr. of 4.5. Renal US on 02/22 without obstructive cause, without hydronephrosis. UA unremarkable for infection. - Cr down to 2.0 today (from 3.5). - Remove Lizarraga catheter - Continue IV fluids (2) Metastatic cancer: Plan: Metastatic breast cancer. Follows Dr. Vasquez. - Continue anastrozole - Continue gabapentin 100 mg PO daily (reduced dose) & oral hydromorphone 1 mg PO Q4h PRN (also reduced) - STOPPED fentanyl patch as this was thought to be causing too much sedation. (3) Hypertension: Plan: BP today is 150/75. - Continue metoprolol succinate 100mg PO daily - HOLD losartan due to ARNALDO (4) Type II diabetes mellitus: Plan: A1c was 5.1% this admission. Patient had taken metformin, but will stop this given her prognosis and A1c. - No need for fingersticks; glucoses have been fine. (5) Depression with anxiety: Plan: - Continue venlafaxine - Lowered dose of clonazepam (6) Folate deficiency: Plan: - Continue folate repletion (7) Conjunctivitis: Plan: Patient has bilateral conjunctivitis with some drainage and matting. - Switched to ofloxacin eye drops QID Plan: VTE Prophylaxis - Heparin 5000 units BID Diet - Renal Admission and Anticipated Discharge Date Admission Date: February 22, 2022 Subjective Doing fairly well today. Seen while sleeping, but wakes up easily. Denies pain at the time of the interview. Reports no fevers/chills, chest pain, shortness of breath, abdominal pain, nausea, or vomiting. As about going home today. Discussed that Cr is still high from baseline. She is ok with waiting another 24 hours, and then curls up and goes back to sleep. Physical Exam Constitutional: WD/WN, vitals as above Eyes: EOM intact bilaterally; no conjunctival abnormality ENMT: external ear and nose normal, oropharynx normal Neck: trachea midline, no thyromegaly normal visual inspection Respiratory: normal respiratory effort, lungs clear to auscultation no respiratory distress Cardiovascular: RRR, no murmur, no edema Gastrointestinal (Abdomen): Inspection/Auscultation: abdomen normal to inspection; abdomen not distended Musculoskeletal: no cyanosis or clubbing, extremities motor strength 5/5 Skin: no rashes, warm and dry Neurologic: moves all extremities and awake Psychiatric: Orientation: alert, oriented to person and cooperative Results & Data Results & Data ([facility]) Vital Signs (Past 12 Hours) Vital Signs Temp Pulse Resp BP Pulse Ox 02/24/22 07:29 36.5 C 59 L 16 151/77 H 92 PG Care Time/CCT Total # of Minutes Spent Total Time Spent with Patient: Total time spent is greater than 50% in coordination of care (as documented) at patient's floor/unit and/or counseling patient: Coding Level of Care Code 53841 Subseq Hosp Care Lvl 2 Diagnoses Acute kidney injury N17.9 Metastatic cancer C79.9 Hypertension I10 Type II diabetes mellitus E11.9 Depression with anxiety F41.8 Folate deficiency E53.8 Conjunctivitis H10.9
[2022-02-24] MEDS: clonazePAM 0.5 MG TAB PO PRN (14:37)
[2022-02-25] MEDS: clonazePAM 0.5 MG TAB PO PRN (00:50)
[2022-02-25] MEDS: LACTATED RINGER'S 1,000 ML IV SCH ×2 (04:46→13:40)
[2022-02-25 06:16] LABS: Hematocrit (blood only) 34.5 % (37-47); Hemoglobin 11.6 g/dL (12.0-16.0); Mean Corpuscular Hemoglobin 33.1 pg (25-34); Mean Corpuscular Hgb Conc 33.6 g/dL (32-36); Mean Corpuscular Volume 98.6 fL (80-100); Mean Platelet Volume 10.2 fL (7.4-10.4); Platelet Count 293 K/uL (130-400); RDW Standard Deviation 47.1 fL (36.4-46.3); White Blood Count 9.22 K/uL (4.8-10.8)
[2022-02-25 06:42] LABS: BUN Creatinine Ratio 14.2 (10-20); Calcium 8.9 mg/dl (8.5-10.1); Creatinine Clr Calc Pharmacy 37.2 ml/min; Est GFR (African American) 43.9 ml/min; Est GFR (Non-African American) 37.9 ml/min; Magnesium 1.2 mg/dl (1.7-2.4); Potassium 3.9 mmol/L (3.5-5.1)
[2022-02-25] MEDS: GABAPENTIN 100 MG CAP PO SCH (08:18)
[2022-02-25] MEDS: OFLOXACIN 0.3% 75 DROPS/5 ML BTL OPB SCH ×2 (08:19→13:45)
[2022-02-25] MEDS: VENLAFAXINE HCL XR 150 MG CAPXR PO SCH (08:19)
[2022-02-25] MEDS: METOPROLOL SUCC 50MG EXT REL TAB PO SCH (08:19)
[2022-02-25] MEDS: ANASTROZOLE 1 MG TAB PO SCH (08:22)
[2022-02-25] MEDS: MAGNESIUM SULFATE / D5W 1 GM/100 ML BAG IV SCH ×4 (08:24→13:56)
[2022-02-25] MEDS ORDERED: LOSARTAN POTASSIUM 50 MG TAB PO SCH (09:00)
[2022-02-25] MEDS: PANTOprazole 40 MG TAB PO SCH (09:24)
[2022-02-25] MEDS: HEPARIN SOD 5,000 UNIT/0.5 ML VIAL SQ SCH (09:24)
--- NOTE | 2022-02-25 14:36 | Discharge Summary ---
Date of Service February 25, 2022 Admission HPI Per Admitting Provider 71-year-old female sent to the hospital due to acute kidney injury as discovered by elevated creatinine on outpatient blood work by her oncologist Dr. Vasquez. She sees Dr. Vasquez for metastatic breast cancer. 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 Patient was discharged from our hospital on February 13 after admission for encephalopathy and hypercapnic respiratory failure which is felt secondary to pain medications At the time of discharge from our facility your creatinine 0.88, no imaging was done in the emergency department to see if there is any post renal obstructive disease from lymphadenopathy or even radiation changes that may cause hydronephrosis., The fact that she has normal potassium and no significant anion gap or acidemia suggested by her chemistries likely suggest this may be some chronic changes over time from her discharge Principal Diagnosis Acute kidney injury from dehydration Lethargy from opioid and sedating medication overuse Discharge Exam Constitutional WD/WN, vitals as above Eyes EOM intact bilaterally; no conjunctival abnormality ENMT external ear and nose normal, oropharynx normal Neck trachea midline, no thyromegaly normal visual inspection Respiratory normal respiratory effort, lungs clear to auscultation no respiratory distress Cardiovascular RRR, no murmur, no edema Gastrointestinal (Abdomen) Inspection/Auscultation: abdomen normal to inspection; abdomen not distended Musculoskeletal no cyanosis or clubbing, extremities motor strength 5/5 Skin no rashes, warm and dry Neurologic moves all extremities and awake Psychiatric Orientation: alert, oriented to person and cooperative Discharge Data Allergies Allergy/AdvReac Type Severity Reaction Status Date / Time No Known Allergies Allergy Unknown Verified 02/22/22 18:43 Consultations 02/22/22 18:23 ED Decision to Admit Stat Ordered Studies 02/22/22 19:20 US renal/blad retro comp Urgent Hospital Course (1) Acute kidney injury: Baseline Cr. ~1.0; presented with Cr. of 4.5. Renal US on 02/22 without obstructive cause, without hydronephrosis. UA unremarkable for infection. - Cr down to 2.0 today (from 3.5). - Remove Lizarraga catheter - Continue IV fluids -> Cr down to 1.4 on discharge with strong downward trajectory. Encouraged good PO intake to patient and son over the phone. Can f/u with PCP tomorrow and repeat labs in 1-2 weeks. (2) Metastatic cancer: Metastatic breast cancer. Follows Dr. Vasquez. - Continue anastrozole - Continue gabapentin 100 mg PO daily (reduced dose) & oral hydromorphone 1 mg PO Q4h PRN (also reduced) - STOPPED fentanyl patch as this was thought to be causing too much sedation. (3) Hypertension: BP today is 150/75. - Continue metoprolol succinate 100mg PO daily - Resume losartan on discharge; held while inpatient due to ARNALDO. (4) Type II diabetes mellitus: A1c was 5.1% this admission. Patient had taken metformin, but will stop this given her prognosis and A1c. - No need for fingersticks; glucoses have been fine. - Stopped metformin on discharge. (5) Depression with anxiety: - Continue venlafaxine - Lowered dose of clonazepam (6) Folate deficiency: - Continue folate repletion (7) Conjunctivitis: Patient has bilateral conjunctivitis with some drainage and matting. - Switched to ofloxacin eye drops QID VTE Prophylaxis - Heparin 5000 units BID Diet - Renal I certify that this patient is under my care and that I, or a physicians fitness assistant working with me, had a face to-face encounter that meets the home health [id number] encounter requirements with this patient. The encounter with the patient was in whole, or in part, for the following medical condition, which is the primary reason for home health care (list medical condition): I certify that, based on my findings, the following services are medically necessary home health services: My clinical findings support the need for the above services because: OT Assess ADL Status and Restore Function w ADLs PT Assessment for Endurance / Balance / Strength Skilled Nsg Assessment Further, I certify that my clinical findings support that this patient is homebound (i.e. absences from home require considerable and taxing effort and are for medical reasons or roman cath[employer] services or infrequently or of short duration when for other reasons) because: Advanced cancer and debility Certification for Home Health Services: Based on the above findings, I certify that this patient is confined to the home and needs intermittent care home care, physical therapy and/or speech therapy or continues to need occupational therapy. The patient is under my care, and I have initiated the establishment of the plan of care. This patient will be followed by a physician who will periodically review the plan of care. Total Time Total Time Spent Total Time Spent (In Minutes): 35 Discharge Plan Discharge Items Patient Disposition: Home - Home Health Services Reason For Visit: ACUTE KIDNEY INJURY, METASTATIC BREAST CANCER Discharge Diagnosis: Acute kidney injury from dehydration Activity: Resume your previous activity Non-emergency contact: Primary Care Provider and Oncologist Call non-emergency contact if: your symptoms worsen Follow-up/Referrals: Judie Ojeda CRNP [Primary Care Provider] - 02/26/22 2:00 pm Diet: Regular Addtl Attending Provider Instructions: Ms. James, Mike were admitted to the hospital with a kidney injury that was due to dehydration. We gave you fluids, and your kidney are nearly at baseline, and they will continue to get better as long as you remained hydrated. The fentanyl patch seems to be too strong for you, and we encourage you to avoid that. We have also lowered a number of your sedating medications: 1) Lowered gabapentin from 300 mg 3 times a day to 100 mg 3 times a day. 2) Lower your Dilaudid dose to 1 mg from 2 mg. 3) Lowered your Klonipin to 0.5 mg for all doses instead of the evening 1 mg dose. Only take this as needed. With these reductions, in the hospital, you have been doing well. Your pain is not a "0", but has been low enough for you to move around without too much discomfort. These medications can be adjusted as tolerated by your PCP or Dr. Vasquez. Please see your PCP tomorrow, and follow up with Dr. Vasquez this week or next to see how you are doing. As we discussed, you would like to go home. That is fine, but please have people supervising you or in the house with you at all times as per the recommendations of Physical Therapy. We are arranging some home health and home PT/OT for you to help keep you strong. Pending Studies at Discharge: No Stand-Alone Forms: My [employer], Smoking Cessation Medications and DC Order Prescriptions: New ofloxacin 0.3 % Drops 2 drp OPB QID Qty: 5 RF: 0 gabapentin 100 mg Capsule 100 mg PO TID Qty: 90 RF: 0 Continued omeprazole 20 mg capsule,delayed release(DR/EC) 20 mg PO QAM Qty: 90 RF: 3 losartan 100 mg tablet 100 mg PO QAM Qty: 90 RF: 3 metoprolol succinate 100 mg tablet extended release 24 hr 100 mg PO QAM Qty: 30 RF: 5 acetaminophen 325 mg tablet 650 mg PO Q6H PRN (Reason: pain, mild) RF: 0 anastrozole 1 mg tablet 1 mg PO DAILY RF: 0 multivitamin with minerals Capsule 1 cap PO BID RF: 0 venlafaxine 150 mg capsule,extended release 24hr 150 mg PO DAILY RF: 0 cholecalciferol (vitamin D3) 50 mcg (2,000 unit) capsule 50 mcg PO QAM RF: 0 Changed clonazepam 0.5 mg tablet 0.5 mg PO BID PRN (Reason: Anxiety) Qty: 0 RF: 0 hydromorphone 2 mg tablet 1 mg PO Q4H PRN (Reason: pain) Qty: 0 RF: 0 Discontinued gabapentin 300 mg capsule 300 mg PO Q8H RF: 0 metformin 500 mg tablet 500 mg PO QAM RF: 0 rosuvastatin 5 mg tablet 5 mg PO QAM RF: 0 fentanyl 50 mcg/hr patch 72 hour 1 patch transdermal Q72H Qty: 5 RF: 0 clonazepam 0.5 mg tablet 1 mg PO HS PRN (Reason: Anxiety) RF: 0 Discharge Orders: Discharge Order (Routine); Ordered 02/25/22 Ordered By: Christian Franklin Admission Data Admit Date/Time: 02/22/22 19:20 Attending Provider: Christian Franklin Admit Provider: Yomi Dutta Primary Care Provider: Judie Ojeda Other Providers: Christian Franklin ; Meagher,Home Care Other Interventions: Discharge Summary Assessment (RN) Last Done: 02/25/22 12:12 Coding Level of Care Code D/C DAY MANAGEMENT >30 MINS Diagnoses Acute kidney injury N17.9 Metastatic cancer C79.9 Hypertension I10 Type II diabetes mellitus E11.9 Depression with anxiety F41.8 Folate deficiency E53.8 Conjunctivitis H10.9
== END 2022-02-25 16:54 | disposition home health service (06) | DRG 683 ==
LOC: ED 16:34 → SUATTDRO 19:20 → 3W 19:20

== ENCOUNTER 2022-08-12 10:42 | Inpatient (IN) ==
[2022-08-12] MEDS ORDERED: SODIUM CHLORIDE 0.9% 1000ML 1,000 ML IV ONE (11:51)
--- NOTE | 2022-08-12 11:51 | XRay Report ---
XR chest 1V portable CLINICAL HISTORY: Chest Pain TECHNIQUE: Single frontal radiograph of the chest was obtained. Comparison: Comparison is made to chest radiograph 06/07/2019 and CTA chest 02/11/2022 FINDINGS: No lines and tubes are seen. Cardiomegaly is noted. There is elevation of the right hemidiaphragm wit h faint airspace opacity in the right lower lung. No evidence of pleural effusion or pneumothorax. IMPRESSION: Cardiomegaly is seen. Faint right lower lung airspace opacity likely reflects atelectasis with or wit hout superimposed aspiration/pneumonia. ACT 112: Negative or not required by law. Electronically signed by: Joseph Longoria M.D. 08/12/2022 11:50 AM
[2022-08-12] MEDS ORDERED: ACETAMINOPHEN 1,000 MG/100 ML VIAL IV STA (12:10)
[2022-08-12] MEDS ORDERED: MoRPHine SULFATE 4 MG/ML 1 ML CARP\\VIAL IV STA (12:16)
[2022-08-12] MEDS ORDERED: ONDANSETRON INJ 2 MG/ML 2 ML VIAL IV STA (12:17)
[2022-08-12 12:53] LABS: Hematocrit (blood only) 38.2 % (34.1-44.9); Hemoglobin 12.9 g/dl (12.0-16.0); Mean Corpuscular Hemoglobin 36.3 pg (25.0-34.0); Mean Corpuscular Hgb Conc 33.8 g/dL (32.0-36.0); Mean Corpuscular Volume 107.6 fL (80.0-100.0); Mean Platelet Volume 9.7 fL (9.4-12.3); Platelet Count 351 K/uL (130-400); RDW Coefficient of Variation 15.8 % (11.5-14.5); RDW Standard Deviation 63.4 fL (36.4-46.3); Red Blood Count 3.55 M/uL (3.93-5.22); White Blood Count 7.17 K/ul (4.8-10.8)
[2022-08-12 13:11] LABS: INR 0.9 (0.9-1.1); Partial Thromboplastin Time 27.2 Seconds (21.0-31.0); Prothrombin Time 9.9 Seconds (9.0-12.0)
[2022-08-12 13:39] LABS: Influenza A virus by PCR Negative (Neg); Influenza B virus by PCR Negative (Neg); RSV by PCR Negative (Neg); SARS CoV2 RNA(COVID-19) InHosp NEGATIVE (Negative)
--- NOTE | 2022-08-12 13:41 | Electrocardiogram Report ---
Test Reason : Blood Pressure : / mmHG Vent. Rate : 071 BPM Atrial Rate : 071 BPM P-R Int : 160 ms QRS Dur : 098 ms QT Int : 454 ms P-R-T Axes : 055 -59 011 degrees QTc Int : 493 ms Normal sinus rhythm Possible Left atrial enlargement Left anterior fascicular block Incomplete right bundle branch block Left ventricular hypertrophy Abnormal ECG When compared with ECG of 11-FEB-2022 11:46, No significant change Confirmed by Wilberto Lacey ([id number]) on 08/12/2022 1:41:08 PM Referred By: Confirmed By:Wilberto Lacey
[2022-08-12 13:43] LABS: Albumin Globulin Ratio 1.4 (0.9-2); Albumin Level 4.3 gm/dl (3.4-5.0); Bilirubin Direct 0.1 mg/dl (0-0.2); Bilirubin,Total 0.4 mg/dl (0.2-1.0); Calcium 8.9 mg/dl (8.5-10.1); Creatinine Clr Calc Pharmacy 51.6 ml/min; Est GFR (African American) 66.6 ml/min; Est GFR (Non-African American) 57.4 ml/min; Globulin 3.1 gm/dl (2.5-4.0); Magnesium 1.6 mg/dl (1.7-2.4); Phosphorus 2.3 mg/dl (2.5-4.9); Potassium 4.1 mmol/L (3.5-5.1); Total Protein 7.4 gm/dl (6.0-8.3)
[2022-08-12 14:05] LABS: Troponin I High Sensitivity 21.9 pg/ml (0-14)
[2022-08-12] MEDS ORDERED: OPTIRAY 300 500mL IV ONE (14:15)
--- NOTE | 2022-08-12 14:32 | CT Scan Report ---
CT ANGIOGRAM OF THE CHEST; CT SCAN OF THE ABDOMEN AND PELVIS WITH IV CONTRAST CLINICAL HISTORY: Atypical chest pain. Right flank pain. Metastatic breast cancer. COMPARISON STUDY: PET/CT dated 08/07/2022. Chest CT dated 02/11/2022. Abdominal CT dated 06/07/2019. TECHNIQUE: Following the IV administration of 120 of Optiray 320, CT angiogram of the chest is perfor med from the upper abdomen to the thoracic inlet utilizing the pulmonary embolus protocol. Images are reviewed in the axial, sagittal, coronal planes. 3-D MIPS images are created and assessed. Subsequen tly, CT scan of the abdomen and pelvis was performed from the lung bases to the proximal femora. Imag es are reviewed in the axial, sagittal, and coronal planes. IV contrast was administered without comp lication. A dose lowering technique was utilized adhering to the principles of ALARA. CT DOSE: 888.44 mGy.cm FINDINGS: CHEST: Thyroid: The left lobe is mildly enlarged and heterogeneous. The right lobe is diminutive. Thoracic aorta: The thoracic aorta is normal in caliber and demonstrates standard 3-vessel arch anato my. No dissection is seen. Pulmonary vasculature: The Main pulmonary arteries appear dilated suggesting pulmonary artery hyperte nsion. There is mixing artifact within the pulmonary trunk. There are no filling defects identified i n the main, lobar, or segmental pulmonary arteries to indicate pulmonary embolus. Heart: The heart is enlarged and without pericardial effusion. Lungs and pleural spaces: There is no airspace consolidation typical for pneumonia or pleural effusio n. Minimal secretions are noted in the trachea. Foci of scarring/atelectasis are seen throughout both lungs, greatest at the lung bases. Mediastinum: There is no mediastinal lymphadenopathy. Merna: Clear. Axillae: Surgical clips are noted in the right axilla. There is no axillary lymphadenopathy. Bony thorax: The skeletal structures are osteopenic. No lytic or blastic lesion is seen. Spondylotic change is noted in the thoracic spine. Soft tissues: Postsurgical change is noted in both breasts. ABDOMEN AND PELVIS: Liver: The contrast-enhanced liver is normal in size, contour, and attenuation. There is minimal cent ral intrahepatic biliary ductal dilatation. The hepatic veins and portal veins are patent. A 1.4 cm c yst is noted in the left lobe. Additional subcentimeter hepatic hypodensities also likely represent c ysts but are too small for definitive characterization. Gallbladder: The gallbladder is distended. The gallbladder wall is thickened and hyperemic and there is surrounding inflammation and fluid. The appearance is consistent with acute cholecystitis. Spleen: Normal in size and attenuation. Pancreas: Moderately atrophic and grossly unremarkable. Adrenal glands: Nodularity of the left adrenal gland is similar to the 2019 examination. The right ad renal gland is normal in appearance. Kidneys: The contrast enhanced kidneys demonstrate cortical atrophy and are without hydronephrosis. T he kidneys enhance symmetrically. A 2.3 cm cyst is noted in the right upper pole. Additional subcenti meter cortical hypodensities also likely represent cysts but are too small for definitive characteriz ation. Abdominal vasculature: The abdominal aorta is normal in course and caliber noting moderate atheroscle rotic calcification. Stomach and bowel: There is a small hiatal hernia. There is moderate colonic diverticulosis without C T evidence of acute diverticulitis. No bowel obstruction is seen. The appendix is not identified and reported surgically absent. Peritoneum: There is no intraperitoneal free air or abdominal ascites. There is a fat-containing umbi lical hernia. Lymphadenopathy: None. Pelvic viscera: The bladder is normal as visualized. There are calcified uterine fibroids. No adnexal lesion is seen. There are bilateral fat-containing groin hernias. Skeletal structures: No lytic or blastic lesions are seen. There is extensive permeative destruction of the sacrum with lumbar bilateral insufficiency fractures. No additional destructive bony lesion is clearly identified. Spondylotic changes noted throughout the lumbar spine. IMPRESSION: 1. Acute cholecystitis. 2. There is no evidence of pulmonary embolus in the main, lobar, or segmental pulmonary arteries. 3. There is no airspace consolidation or pleural effusion. 4. Colonic diverticulosis without CT evidence of acute diverticulitis. 5. There is permeative destruction of the sacrum with large bilateral insufficiency fractures. This i s similar to the 08/07/2022 PET examination. 6. No additional destructive bone lesion is clearly seen. 7. Cardiomegaly. 8. Additional findings as above. ACT 112: Negative or not required by law. Electronically signed by: Ho Roy M.D. 08/12/2022 2:31 PM
--- NOTE | 2022-08-12 14:55 | Emergency Department Note ---
Impression & Plan Acalculous cholecystitis, Breast cancer metastasized to bone, Right upper quadrant abdominal pain ED Provider Note NAME: ELSY DEVRIES AGE: 71 SEX: F ARRIVES VIA: Walk-In INFORMANT: Patient ED PROVIDER(S): Milo Morrison MD CHIEF COMPLAINT: Right upper abdominal pain PLAN: Disposition: Admit MEDICAL DECISION MAKING: The patient is a pleasant 71-year-old woman with a past medical history of metastatic breast cancer who presents to the emergency department with right upper abdominal and flank pain with associated nausea that began last night. The patient denies any fevers, cough, congestion, diarrhea or constipation. She has any urinary symptoms. She denies any similar pain before. She reports her cancer pain related to sacral mass is improved and had a recent PET scan from which she is unaware of the results. Review of the patient's PET scan in the EMR does demonstrate evidence of significant treatment response. 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 She received chemotherapy and radiation with chemotherapy completed in 2008. In December 2021 she presented to the emergency department with back pain diagnosed with large soft tissue mass from the sacrum with invasion of the spinal canal involving the adjacent iliac bone. She was transferred to [place] and received palliative radiation treatment and started on Arimidex in January 2022 and Ibrance in March 2022. Currently she is on anastrozole/Ibrance. On arrival the patient is in no acute distress, afebrile stable vital signs. She has no significant abdominal or flank tenderness but does report 7/10 pain. WBC, H/H and platelets within normal limits. Chemistry without metabolic acidosis. Magnesium 1.6 electrolytes otherwise unremarkable. LFTs are within n ormal limits with total bilirubin 0.4 and direct bilirubin 0.1. High-sensitivity troponin 21.9, nonspecific. Lipase not elevated. COVID-[address] of the chest was negative for PE. CT of the abdomen pelvis demonstrates evidence suggestive of a calculus cholecystitis. RUQ US also rocael ma/wall thickening suggestive of cholecystitis, though negative sonographic Crespo's sign. Patient continues to have non-tender abdomen but reports 5/10 pain. Case was discussed with Johnnie Mayes, general surgery PAC with Dr. Alvarez, general surgery. Appreciate consultation/recommendations for medicine admission for further evaluation. Case was discussed with Dr. Kate, [facility] hospitalist, who will evaluate the patient for admission. ABX per admitting team. Triage Nursing notes reviewed and agree them. Prior medical records reviewed Differential diagnosis: Gastroenteritis, food borne illness, infections, appendicitis, diverticulitis, inflammatory bowel disease, obstruction, GI bleed, biliary pathology, volvulus, as well as other pathologies. ER treatment provided: See below. Diagnostics interpreted by me: ECG: Normal sinus rhythm, 71 bpm, no ectopy, left anterior fascicular block, incomplete right bundle branch block, LVH, no overt ST elevation or depression, QTC 4 3, QRS 98. Cardiac Monitoring: An order for continuous cardiac monitoring was placed and demonstrated Normal sinus rhythm, 71 bpm, no ectopy. Laboratory studies: See below Imaging studies: See below Consultation(s): Johnnie Mayes, general surgery PAC with Dr. Alvarez, general surgery. Dr. Kate, [facility] hospitalist. HPI: The patient is a pleasant 71-year-old woman with a past medical history of metastatic breast cancer who presents to the emergency department with right upper abdominal and flank pain with associated nausea that began last night. The patient denies any fevers, cough, congestion, diarrhea or constipation. She has any urinary symptoms. She denies any similar pain before. She reports her cancer pain related to sacral mass is improved and had a recent PET scan from which she is unaware of the results. Review of the patient's PET scan in the EMR does demonstrate evidence of significant treatment response. 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 She received chemotherapy and radiation with chemotherapy completed in 2008. In December 2021 she presented to the emergency department with back pain diagnosed with large soft tissue mass from the sacrum with invasion of the spinal canal involving the adjacent iliac bone. She was transferred to [place] and received palliative radiation treatment and started on Arimidex in January 2022 and Ibrance in March 2022. Currently she is on anastrozole/Ibrance. ROS: See above HPI for pertinent positives & negatives. A total of 10 systems reviewed and were otherwise negative. VITALS:See Below PHYSICAL EXAMINATION: GENERAL: Awake, alert, uncomfortable-appearing, in no distress HENT: Normocephalic, atraumatic. Oropharynx with dry mucous membranes and otherwise unremarkable. EYES: Normal conjunctiva. Sclera non-icteric. NECK: Supple. No nuchal rigidity. FROM. No JVD. RESPIRATORY: Clear to auscultation. CARDIAC: Regular rate, normal rhythm. Extremities warm and well perfused. Pulses equal. ABDOMEN: Soft, non-distended. No tenderness to palpation. No rebound or guarding. No masses. RECTAL: Deferred. MUSCULOSKELETAL: Chest examination reveals no tenderness. The back is symmetrical on inspection without obvious abnormality. There is no CVA tenderness to palpation. No joint edema. LOWER EXTREMITIES: Calves are equal size bilaterally and non-tender. No edema. No discoloration. NEURO: Normal sensorium. No sensory or motor deficits noted. SKIN: No rash or jaundice noted. 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 Osteoarthritis Pain of right lower extremity Type II diabetes mellitus Vitamin D deficiency Surgical History H/O tubal ligation History of appendectomy History of section History of colonoscopy History of esophagogastroduodenoscopy (EGD) History of left breast biopsy malignant History of lumpectomy of both breasts x2 History of right breast biopsy malignant History of tooth extraction History of wisdom tooth extraction Status post correction of deviated nasal septum Family History Grandmother (Maternal) AAA (abdominal aortic aneurysm) Family history of diabetes mellitus Mother No problems noted. Other No family history of adverse response to anesthesia Social History Smoking Status: Current every day smoker Tobacco Type: Cigarettes Cigarettes Per Day: 10; Second Hand Exposure: No; Hx Alcohol Use: Yes Alcohol type: hard liquor Hx Substance Use: No Preferred Language: Fijian Communication Ability: Effective Hearing Ability: Normal Inspector Insulation Required: No Beliefs That Will Affect Care: None marital status: Single Current Living Situation: Family Current Living Situation Comment: Lives with Son and Grandson. 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 Children do You have: 1 Feels Safe at Home: Yes Seatbelt Use: always Sunscreen Use: Yes Assistive Devices: Glasses Allergies Allergies Allergy/AdvReac Type Severity Reaction Status Date / Time fentanyl AdvReac Severe Hallucinati Verified 08/12/22 17:25 on Home Meds Home Medications Medication Instructions Recorded Confirmed cholecalciferol (vitamin D3) 50 50 mcg PO QAM 01/06/22 08/12/22 mcg (2,000 unit) capsule acetaminophen 325 mg tablet 650 mg PO Q6H PRN pain, mild 02/08/22 08/12/22 anastrozole 1 mg tablet 1 mg PO QAM 02/08/22 08/12/22 multivitamin with minerals 1 cap PO QAM 02/08/22 08/12/22 Ibrance 1 dose PO UD 08/12/22 08/12/22 calcium carbonate 600 mg-vitamin 1 tab PO QAM 08/12/22 08/12/22 D3 10 mcg (400 unit) tablet (Calcium 600 + D(3)) gabapentin 600 mg tablet 600 mg PO QAM 08/12/22 08/12/22 hydromorphone 8 mg tablet 4 mg PO Q4 PRN Pain, Severe 08/12/22 08/12/22 magnesium 250 mg tablet 250 mg PO DAILY 08/12/22 08/12/22 venlafaxine 150 mg 150 mg PO QAM 08/12/22 08/12/22 capsule,extended release 24 hr Previous Rx's Medication Instructions Recorded losartan 100 mg tablet 100 mg PO QAM #90 tabs 05/30/22 metoprolol succinate 100 mg 100 mg PO QAM #90 tabs 07/23/22 tablet,extended release 24 hr omeprazole 20 mg capsule,delayed 20 mg PO QAM #90 caps 07/23/22 release rosuvastatin 5 mg tablet 5 mg PO DAILY #90 tabs 07/23/22 clonazepam 1 mg tablet 1 mg PO BID #60 tabs 08/02/22 Results & Data (ED) Vital Signs Vital Signs - 24 hr 08/12/22 11:00 08/12/22 11:49 08/12/22 12:05 Temperature 36.8 C Temperature Source Oral Pulse Rate 75 70 70 Pulse Rate from SpO2 Sensor 70 69 Pulse Rhythm Respiratory Rate 16 12 20 Respiratory Effort / Characteristics Non-Labored Spontaneous Respiratory Depth Normal Respiratory Pattern Regular Blood Pressure 156/102 H 171/105 H Blood Pressure Mean 120 127 Blood Pressure Position Sitting Pulse Oximetry 96 97 93 Oxygen Delivery Method Room Air Oxygen Flow Rate Sepsis Recent Fever Within 48 Hours No Sepsis New/Unexplained Change in Mental Status No Sepsis Action Taken by Nursing No Action Required 08/12/22 12:30 08/12/22 13:00 08/12/22 13:30 Temperature Temperature Source Pulse Rate 71 70 72 Pulse Rate from SpO2 Sensor 71 70 Pulse Rhythm Respiratory Rate 18 17 16 Respiratory Effort / Characteristics Respiratory Depth Respiratory Pattern Blood Pressure 174/113 H 133/80 124/81 Blood Pressure Mean 133 97 95 Blood Pressure Position Pulse Oximetry 96 94 94 Oxygen Delivery Method Oxygen Flow Rate Sepsis Recent Fever Within 48 Hours Sepsis New/Unexplained Change in Mental Status Sepsis Action Taken by Nursing 08/12/22 16:18 08/12/22 16:22 08/12/22 16:24 Temperature Temperature Source Pulse Rate 77 73 73 Pulse Rate from SpO2 Sensor Pulse Rhythm Regular Regular Respiratory Rate 16 16 16 Respiratory Effort / Characteristics Respiratory Depth Respiratory Pattern Blood Pressure 82/57 L Blood Pressure Mean 65 Blood Pressure Position Pulse Oximetry 93 88 L 94 Oxygen Delivery Method Room Air Nasal Cannula Oxygen Flow Rate 2 Sepsis Recent Fever Within 48 Hours Sepsis New/Unexplained Change in Mental Status Sepsis Action Taken by Nursing 08/12/22 16:20 08/12/22 16:29 Temperature Temperature Source Pulse Rate 76 76 Pulse Rate from SpO2 Sensor 70 76 Pulse Rhythm Respiratory Rate 20 18 Respiratory Effort / Characteristics Respiratory Depth Respiratory Pattern Blood Pressure 82/57 L 84/63 L Blood Pressure Mean 65 70 Blood Pressure Position Pulse Oximetry 90 97 Oxygen Delivery Method Nasal Cannula Nasal Cannula Oxygen Flow Rate 2 2 Sepsis Recent Fever Within 48 Hours Sepsis New/Unexplained Change in Mental Status Sepsis Action Taken by Nursing Laboratory Data Attestation: I reviewed the patient's lab results. Result diagrams: 08/12/22 12:03 08/12/22 12:03 Lab Results 08/12/22 08/12/22 08/12/22 Range/Units 12:03 12:03 12:03 WBC 7.17 (4.8-10.8) K/ul RBC 3.55 L (3.93-5.22) M/uL Hgb 12.9 (12.0-16.0) g/dl Hct 38.2 (34.1-44.9) % MCV 107.6 H (80.0-100.0) fL MCH 36.3 H (25.0-34.0) pg MCHC 33.8 (32.0-36.0) g/dL RDW Std Deviation 63.4 H (36.4-46.3) fL RDW Coeff of Cheri 15.8 H (11.5-14.5) % Plt Count 351 (130-400) K/uL MPV 9.7 (9.4-12.3) fL Immature Gran % (Auto) 1.3 % Neut % (Auto) 83.6 % Lymph % (Auto) 11.9 % Brown % (Auto) 2.8 % Eos % (Auto) 0.1 % Baso % (Auto) 0.3 % Neut # (Auto) 6.00 (1.4-6.5) K/uL Lymph # (Auto) 0.85 L (1.2-3.4) K/uL Brown # (Auto) 0.20 L (0.24-0.82) K/uL Eos # (Auto) 0.01 (0-0.50) K/uL Baso # (Auto) 0.02 (0-0.2) K/uL Immature Gran # (Auto) 0.09 H (0.00-0.02) K/uL Polychromasia 1+ PT 9.9 (9.0-12.0) Seconds INR 0.9 (0.9-1.1) APTT 27.2 (21.0-31.0) Seconds PTT Ratio 1.0 Sodium 136 (136-145) mmol/L Potassium 4.1 (3.5-5.1) mmol/L Chloride 101 (98-107) mmol/L Carbon Dioxide 27 (21-32) mmol/L Anion Gap 8 (3-11) BUN 10 (6-23) mg/dl Creatinine 1.00 (0.6-1.2) mg/dl Est Cr Clr Drug Dosing 51.6 ml/min Est GFR ( Amer) 66.6 ml/min Est GFR (Non-Af Amer) 57.4 ml/min BUN/Creatinine Ratio 10.0 (10-20) Glucose 122 H (70-99(Fasting)) mg/dl Calcium 8.9 (8.5-10.1) mg/dl Phosphorus 2.3 L (2.5-4.9) mg/dl Magnesium 1.6 L (1.7-2.4) mg/dl Total Bilirubin 0.4 (0.2-1.0) mg/dl Direct Bilirubin 0.1 (0-0.2) mg/dl AST 18 (13-39) U/L ALT 12 (7-52) U/L Alkaline Phosphatase 90 (34-104) U/L Troponin I High Sens 21.9 H (0-14) pg/ml Total Protein 7.4 (6.0-8.3) gm/dl Albumin 4.3 (3.4-5.0) gm/dl Globulin 3.1 (2.5-4.0) gm/dl Albumin/Globulin Ratio 1.4 (0.9-2) Lipase 8 L (11-82) U/L SARS-CoV-2 (PCR) (Negative) Influenza Type A (PCR) (Neg) Influenza Type B (PCR) (Neg) RSV (RT-PCR) (Neg) 08/12/22 Range/Units 12:05 WBC (4.8-10.8) K/ul RBC (3.93-5.22) M/uL Hgb (12.0-16.0) g/dl Hct (34.1-44.9) % MCV (80.0-100.0) fL MCH (25.0-34.0) pg MCHC (32.0-36.0) g/dL RDW Std Deviation (36.4-46.3) fL RDW Coeff of Cheri (11.5-14.5) % Plt Count (130-400) K/uL MPV (9.4-12.3) fL Immature Gran % (Auto) % Neut % (Auto) % Lymph % (Auto) % Brown % (Auto) % Eos % (Auto) % Baso % (Auto) % Neut # (Auto) (1.4-6.5) K/uL Lymph # (Auto) (1.2-3.4) K/uL Brown # (Auto) (0.24-0.82) K/uL Eos # (Auto) (0-0.50) K/uL Baso # (Auto) (0-0.2) K/uL Immature Gran # (Auto) (0.00-0.02) K/uL Polychromasia PT (9.0-12.0) Seconds INR (0.9-1.1) APTT (21.0-31.0) Seconds PTT Ratio Sodium (136-145) mmol/L Potassium (3.5-5.1) mmol/L Chloride (98-107) mmol/L Carbon Dioxide (21-32) mmol/L Anion Gap (3-11) BUN (6-23) mg/dl Creatinine (0.6-1.2) mg/dl Est Cr Clr Drug Dosing ml/min Est GFR ( Amer) ml/min Est GFR (Non-Af Amer) ml/min BUN/Creatinine Ratio (10-20) Glucose (70-99(Fasting)) mg/dl Calcium (8.5-10.1) mg/dl Phosphorus (2.5-4.9) mg/dl Magnesium (1.7-2.4) mg/dl Total Bilirubin (0.2-1.0) mg/dl Direct Bilirubin (0-0.2) mg/dl AST (13-39) U/L ALT (7-52) U/L Alkaline Phosphatase (34-104) U/L Troponin I High Sens (0-14) pg/ml Total Protein (6.0-8.3) gm/dl Albumin (3.4-5.0) gm/dl Globulin (2.5-4.0) gm/dl Albumin/Globulin Ratio (0.9-2) Lipase (11-82) U/L SARS-CoV-2 (PCR) NEGATIVE (Negative) Influenza Type A (PCR) Negative (Neg) Influenza Type B (PCR) Negative (Neg) RSV (RT-PCR) Negative (Neg) Administered Medications Acetaminophen (Acetaminophen 325 Mg Tab) 650 mg PO Q4H PRN PRN Reason: pain/fever Stop: 09/11/22 19:37 Last Admin: 08/12/22 23:43 Dose: 650 mg Documented By: Clonazepam (Clonazepam 1 Mg Tab) 1 mg PO BID VI Stop: 09/11/22 20:59 Last Admin: 08/12/22 23:31 Dose: 1 mg Documented By: RH Metronidazole (Flagyl) 500 mg in 100 mls @ 100 mls/hr IV Q8H [facility] Stop: 08/22/22 19:59 Last Infusion: 08/13/22 00:31 Dose: 0 mls/hr Documented By: Admin: 08/12/22 23:31 Dose: 100 mls/hr Documented By: RH Potassium Chloride/Sodium Chloride (Normal Saline W/20 Meq Kcl) 20 meq in 1,000 mls @ 120 mls/hr IV .Q8H20M [facility]; Protocol Stop: 08/14/22 00:14 Last Admin: 08/12/22 23:31 Dose: 120 mls/hr Documented By: RH Insulin Aspart (Insulin Aspart Per Unit) 0 units SC ACHS [facility] Stop: 09/11/22 20:59 Last Admin: 08/12/22 22:25 Dose: Not Given Documented By: RH Discontinued Medications Sodium Chloride (Nss 1000ml) 1,000 mls @ 999 mls/hr IV .Q1H1M ONE Stop: 08/12/22 12:51 Last Infusion: 08/12/22 13:51 Dose: 0 mls/hr Documented By: Admin: 08/12/22 12:28 Dose: 999 mls/hr Documented By: MT Acetaminophen (Ofirmev) 1,000 mg in 100 mls @ 400 mls/hr IV NOW STA Stop: 08/12/22 12:24 Last Infusion: 08/12/22 13:50 Dose: 0 mls/hr Documented By: Admin: 08/12/22 12:27 Dose: 400 mls/hr Documented By: MT Magnesium Sulfate/Dextrose (Magnesium Sulfate / D5w) 1 gm in 100 mls @ 100 mls/hr IV NOW STA Stop: 08/12/22 16:10 Last Infusion: 08/12/22 17:27 Dose: 0 mls/hr Documented By: Admin: 08/12/22 16:17 Dose: 100 mls/hr Documented By: MT Ceftriaxone Sodium (Rocephin) 2,000 mg in 70 mls @ 140 mls/hr IV NOW STA Stop: 08/12/22 17:07 Last Admin: 08/12/22 17:04 Dose: Not Given Documented By: MT Ioversol (Optiray 300 500ml) 120 ml IV ONCE ONE Stop: 08/12/22 14:16 Last Admin: 08/12/22 14:00 Dose: 120 ml Documented By: BRShiraz Morphine Sulfate (Morphine Sulfate 4 Mg/Ml 1 Ml Carp\Vial) 4 mg IV NOW STA Stop: 08/12/22 12:17 Last Admin: 08/12/22 12:28 Dose: 4 mg Documented By: MT Ondansetron HCl (Ondansetron Inj 2 Mg/Ml 2 Ml Vial) 4 mg IV NOW STA Stop: 08/12/22 12:18 Last Admin: 08/12/22 12:28 Dose: 4 mg Documented By: MT Imaging Data Radiologist's Impression: Abdomen/Pelvis CT 08/12/22 12:10 CT ANGIOGRAM OF THE CHEST; CT SCAN OF THE ABDOMEN AND PELVIS WITH IV CONTRAST CLINICAL HISTORY: Atypical chest pain. Right flank pain. Metastatic breast cancer. COMPARISON STUDY: PET/CT dated 08/07/2022. Chest CT dated 02/11/2022. Abdominal CT dated 06/07/2019. TECHNIQUE: Following the IV administration of 120 of Optiray 320, CT angiogram of the chest is performed from the upper abdomen to the thoracic inlet utilizing the pulmonary embolus protocol. Images are reviewed in the axial, sagittal, coronal planes. 3-D MIPS images are created and assessed. Subsequently, CT scan of the abdomen and pelvis was performed from the lung bases to the proximal femora. Images are reviewed in the axial, sagittal, and coronal planes. IV contrast was administered without complication. A dose lowering technique was utilized adhering to the principles of ALARA. CT DOSE: 888.44 mGy.cm FINDINGS: CHEST: Thyroid: The left lobe is mildly enlarged and heterogeneous. The right lobe is diminutive. Thoracic aorta: The thoracic aorta is normal in caliber and demonstrates standard 3-vessel arch anatomy. No dissection is seen. Pulmonary vasculature: The Main pulmonary arteries appear dilated suggesting pulmonary artery hypertension. There is mixing artifact within the pulmonary trunk. There are no filling defects identified in the main, lobar, or segmental pulmonary arteries to indicate pulmonary embolus. Heart: The heart is enlarged and without pericardial effusion. Lungs and pleural spaces: There is no airspace consolidation typical for pneumonia or pleural effusion. Minimal secretions are noted in the trachea. Foci of scarring/atelectasis are seen throughout both lungs, greatest at the lung bases. Mediastinum: There is no mediastinal lymphadenopathy. Merna: Clear. Axillae: Surgical clips are noted in the right axilla. There is no axillary ly mphadenopathy. Bony thorax: The skeletal structures are osteopenic. No lytic or blastic lesion is seen. Spondylotic change is noted in the thoracic spine. Soft tissues: Postsurgical change is noted in both breasts. ABDOMEN AND PELVIS: Liver: The contrast-enhanced liver is normal in size, contour, and attenuation. There is minimal central intrahepatic biliary ductal dilatation. The hepatic veins and portal veins are patent. A 1.4 cm cyst is noted in the left lobe. Additional subcentimeter hepatic hypodensities also likely represent cysts but are too small for definitive characterization. Gallbladder: The gallbladder is distended. The gallbladder wall is thickened and hyperemic and there is surrounding inflammation and fluid. The appearance is con sistent with acute cholecystitis. Spleen: Normal in size and attenuation. Pancreas: Moderately atrophic and grossly unremarkable. Adrenal glands: Nodularity of the left adrenal gland is similar to the 2019 examination. The right adrenal gland is normal in appearance. Kidneys: The contrast enhanced kidneys demonstrate cortical atrophy and are without hydronephrosis. The kidneys enhance symmetrically. A 2.3 cm cyst is noted in the right upper pole. Additional subcentimeter cortical hypodensities also likely represent cysts but are too small for definitive characterization. Abdominal vasculature: The abdominal aorta is normal in course and caliber noting moderate atherosclerotic calcification. Stomach and bowel: There is a small hiatal hernia. There is moderate colonic diverticulosis without CT evidence of acute diverticulitis. No bowel obstruction is seen. The appendix is not identified and reported surgically absent. Peritoneum: There is no intraperitoneal free air or abdominal ascites. There is a fat-containing umbilical hernia. Lymphadenopathy: None. Pelvic viscera: The bladder is normal as visualized. There are calcified uterine fibroids. No adnexal lesion is seen. There are bilateral fat-containing groin hernias. Skeletal structures: No lytic or blastic lesions are seen. There is extensive permeative destruction of the sacrum with lumbar bilateral insufficiency fractures. No additional destructive bony lesion is clearly identified. Spondylotic changes noted throughout the lumbar spine. IMPRESSION: 1. Acute cholecystitis. 2. There is no evidence of pulmonary embolus in the main, lobar, or segmental pulmonary arteries. 3. There is no airspace consolidation or pleural effusion. 4. Colonic diverticulosis without CT evidence of acute diverticulitis. 5. There is permeative destruction of the sacrum with large bilateral insufficiency fractures. This is similar to the 08/07/2022 PET examination. 6. No additional destructive bone lesion is clearly seen. 7. Cardiomegaly. 8. Additional findings as above. ACT 112: Negative or not required by law. Electronically signed by: Ho Roy M.D. 08/12/2022 2:31 PM Chest CTA 08/12/22 12:10 CT ANGIOGRAM OF THE CHEST; CT SCAN OF THE ABDOMEN AND PELVIS WITH IV CONTRAST CLINICAL HISTORY: Atypical chest pain. Right flank pain. Metastatic breast cancer. COMPARISON STUDY: PET/CT dated 08/07/2022. Chest CT dated 02/11/2022. Abdominal CT dated 06/07/2019. TECHNIQUE: Following the IV administration of 120 of Optiray 320, CT angiogram of the chest is performed from the upper abdomen to the thoracic inlet utilizing the pulmonary embolus protocol. Images are reviewed in the axial, sagittal, coronal planes. 3-D MIPS images are created and assessed. Subsequently, CT scan of the abdomen and pelvis was performed from the lung bases to the proximal femora. Images are reviewed in the axial, sagittal, and coronal planes. IV contrast was administered without complication. A dose lowering technique was utilized adhering to the principles of ALARA. CT DOSE: 888.44 mGy.cm FINDINGS: CHEST: Thyroid: The left lobe is mildly enlarged and heterogeneous. The right lobe is diminutive. Thoracic aorta: The thoracic aorta is normal in caliber and demonstrates standard 3-vessel arch anatomy. No dissection is seen. Pulmonary vasculature: The Main pulmonary arteries appear dilated suggesting pulmonary artery hypertension. There is mixing artifact within the pulmonary trunk. There are no filling defects identified in the main, lobar, or segmental pulmonary arteries to indicate pulmonary embolus. Heart: The heart is enlarged and without pericardial effusion. Lungs and pleural spaces: There is no airspace consolidation typical for pneumonia or pleural effusion. Minimal secretions are noted in the trachea. Foci of scarring/atelectasis are seen throughout both lungs, greatest at the lung bases. Mediastinum: There is no mediastinal lymphadenopathy. Merna: Clear. Axillae: Surgical clips are noted in the right axilla. There is no axillary lymphadenopathy. Bony thorax: The skeletal structures are osteopenic. No lytic or blastic lesion is seen. Spondylotic change is noted in the thoracic spine. Soft tissues: Postsurgical change is noted in both breasts. ABDOMEN AND PELVIS: Liver: The contrast-enhanced liver is normal in size, contour, and attenuation. There is minimal central intrahepatic biliary ductal dilatation. The hepatic veins and portal veins are patent. A 1.4 cm cyst is noted in the left lobe. Additional subcentimeter hepatic hypodensities also likely represent cysts but are too small for definitive characterization. Gallbladder: The gallbladder is distended. The gallbladder wall is thickened and hyperemic and there is surrounding inflammation and fluid. The appearance is consistent with acute cholecystitis. Spleen: Normal in size and attenuation. Pancreas: Moderately atrophic and grossly unremarkable. Adrenal glands: Nodularity of the left adrenal gland is similar to the 2019 examination. The right adrenal gland is normal in appearance. Kidneys: The contrast enhanced kidneys demonstrate cortical atrophy and are wit hout hydronephrosis. The kidneys enhance symmetrically. A 2.3 cm cyst is noted in the right upper pole. Additional subcentimeter cortical hypodensities also likely represent cysts but are too small for definitive characterization. Abdominal vasculature: The abdominal aorta is normal in course and caliber noting moderate atherosclerotic calcification. Stomach and bowel: There is a small hiatal hernia. There is moderate colonic diverticulosis without CT evidence of acute diverticulitis. No bowel obstruction is seen. The appendix is not identified and reported surgically absent. Peritoneum: There is no intraperitoneal free air or abdominal ascites. There is a fat-containing umbilical hernia. Lymphadenopathy: None. Pelvic viscera: The bladder is normal as visualized. There are calcified uterine fibroids. No adnexal lesion is seen. There are bilateral fat-containing groin hernias. Skeletal structures: No lytic or blastic lesions are seen. There is extensive permeative destruction of the sacrum with lumbar bilateral insufficiency fra ctures. No additional destructive bony lesion is clearly identified. Spondylotic changes noted throughout the lumbar spine. IMPRESSION: 1. Acute cholecystitis. 2. There is no evidence of pulmonary embolus in the main, lobar, or segmental pulmonary arteries. 3. There is no airspace consolidation or pleural effusion. 4. Colonic diverticulosis without CT evidence of acute diverticulitis. 5. There is permeative destruction of the sacrum with large bilateral insufficiency fractures. This is similar to the 08/07/2022 PET examination. 6. No additional destructive bone lesion is clearly seen. 7. Cardiomegaly. 8. Additional findings as above. ACT 112: Negative or not required by law. Electronically signed by: Ho oRy M.D. 08/12/2022 2:31 PM Gallbladder Ultrasound 08/12/22 15:21 US gallbladder CLINICAL HISTORY: RUQ abd pain, metastatic breast CA TECHNIQUE: Multiple real-time sonographic images of the right upper quadrant were obtained. Comparison: Comparison is made to CT abdomen pelvis 08/12/[address] abdomen pelvis 06/07/2019 FINDINGS: The liver is heterogeneous in echotexture. A left liver cyst measures 1.0 x 0.8 x 1.1 cm. No intrahepatic ductal dilatation is seen. There is edema of the gallbladder wall measuring up to 4 mm. There is pericholecystic free fluid. No definite stones are seen. A sonographic Crespo's sign was not elicited by the coil maker. The common duct measures 0.7 cm in diameter at the level of the hepatic artery. The visualized portions of the pancreas appear normal. The right kidney shows normal echogenicity, cortical thickness and renal contour. The right kidney shows no evidence of hydronephrosis or mass. No ascites or free fluid is seen in Hall's pouch. IMPRESSION: There are cholecystic edema and gallbladder wall thickening concerning for acute cholecystitis, although Crespo's sign is negative. Correlation with pain medication regimen is recommended. ACT 112: Negative or not required by law. Electronically signed by: Joseph Longoria M.D. 08/12/2022 4:15 PM Discharge Plan Visit Data Chief Complaint: Chest Pain Stated Complaint: PAIN IN R SIDE, CHEST AND ABDOMINAL PAIN ED Provider: Milo Morrison Discharge Problem: Acalculous cholecystitis, Breast cancer metastasized to bone, Right upper quadrant abdominal pain Patient Disposition: Admitted As Inpatient Discharge Instructions Interventions: ED Discharge Assessment Last Done: 08/12/22 19:38
[2022-08-12 14:57] LABS: Basophils # (auto) 0.02 K/uL (0-0.2); Basophils % (auto) 0.3 %; Eosinophils # (auto) 0.01 K/uL (0-0.50); Eosinophils % (auto) 0.1 %; Immature Granulocytes # (auto) 0.09 K/uL (0.00-0.02); Immature Granulocytes % (auto) 1.3 %; Lymphocytes # (auto) 0.85 K/uL (1.2-3.4); Lymphocytes % (auto) 11.9 %; Monocytes % (auto) 2.8 %; Neutrophils % (auto) 83.6 %; Polychromasia 1+
[2022-08-12] MEDS ORDERED: MAGNESIUM SULFATE / D5W 1 GM/100 ML BAG IV STA (15:11)
--- NOTE | 2022-08-12 16:16 | Ultrasound Report ---
US gallbladder CLINICAL HISTORY: RUQ abd pain, metastatic breast CA TECHNIQUE: Multiple real-time sonographic images of the right upper quadrant were obtained. Comparison: Comparison is made to CT abdomen pelvis 08/12/[address] abdomen pelvis 06/07/2019 FINDINGS: The liver is heterogeneous in echotexture. A left liver cyst measures 1.0 x 0.8 x 1.1 cm. No intrahe patic ductal dilatation is seen. There is edema of the gallbladder wall measuring up to 4 mm. There is pericholecystic free fluid. No definite stones are seen. A sonographic Crespo's sign was not elici bola by the lunch truck driver. The common duct measures 0.7 cm in diameter at the level of the hepatic art nola. The visualized portions of the pancreas appear normal. The right kidney shows normal echogenicity, cortical thickness and renal contour. The right kidney sh ows no evidence of hydronephrosis or mass. No ascites or free fluid is seen in Hall's pouch. IMPRESSION: There are cholecystic edema and gallbladder wall thickening concerning for acute cholecystitis, altho ugh Crespo's sign is negative. Correlation with pain medication regimen is recommended. ACT 112: Negative or not required by law. Electronically signed by: Joseph Longoria M.D. 08/12/2022 4:15 PM
--- NOTE | 2022-08-12 16:26 | History & Physical Report ---
Date of Service August 12, 2022 Assessment & Plan (1) Acute cholecystitis: Plan: Harmony is a 71-year-old female with a past medical history of bilateral breast cancer with metastasis to bone, depression/anxiety, diverticulitis, hyperlipidemia, type 2 diabetes mellitus, pathologic pelvic fracture/pathologic lumbosacral fracture, macrocytic anemia, and hypertension who presents to the emergency department with right upper abdominal and flank pain with nausea of 1 day. Acalculous Cholecystitis Initially hypotensive at time of assessment to 80/57, improved to systolic 103/63 with fluid bolus and antibiotics initiated -CT-A/P: Acute cholecystitis. 2. There is no evidence of pulmonary embolus in the main, lobar, or segmental pulmonary arteries. 3. There is no airspace consolidation or pleural effusion. 4. Colonic diverticulosis without CT evidence of acute diverticulitis. 5. There is permeative destruction of the sacrum with large bilateral insufficiency fractures. This is similar to the 08/07/2022 PET examination. 6. No additional destructive bone lesion is clearly seen.7. Cardiomegaly. USgallbladder: There are cholecystic edema and gallbladder wall thickening concerning for acute cholecystitis, although Crespo's sign is negative. Correlation with pain medication regimen is recommended. - CXR: naf No leukocytosis Hemoglobin 12.9, MCV 107.6 Coags normal Sodium normal, potassium normal Creatinine with normal baseline, 1.0 on admission Phosphorus 2.3, magnesium 1.6. Repleted High-sensitivity troponin 21.9 suspicious for demand. - EKG with normal sinus rhythm, incomplete right bundle branch block, LVH, no territorial ST segment changes, QTC 493, no significant change compared to 01/2022. Last TTE 01/2022 with EF 50-55%, grade 1 diastolic dysfunction, normal LV wall motion and size. Mild concentric LVH COVID/flu/RSV negative Bilirubin, transaminases normal Surgery consulted Metastatic breast cancer, sacral soft tissue mass s/p palliative RT ER/TN positive, HER2 negative with positive sentinel lymph nodes and mets to bone With history of chemotherapy and radiation. Last received palliative radiation and was started on Arimidex 01/2022, Ibrance 03/2022. - Continued on anastrozole/Ibrance, recently started on monthly denosumab Patient with significant pelvic pain, has been referred to pain management for nerve block/injections Hypertension Continue metoprolol succinate 100 mg daily. Hold for hypotension Losartan temporarily held pending surgical evaluation, continue losartan 100 mg daily if renal function normal 24 hours postop Type 2 diabetes mellitus A1c pending [employer] metformin discontinued for renal function previously, admitting BSG 122. SSI conservative, goal BSG [id number]. CF 50, carb ratio 25. HLD: Continue rosuvastatin 5 mg daily Depression/anxiety Continue venlafaxine Clonazepam dose decreased to 1 mg p.o. twice daily at last admission Folate deficiency Continue repletion B12 borderline low 12/2021, will add repletion DVT prophylaxis: SCDs, para prophylaxis held pending surgical eval Diet: N.p.o. pending surgical eval, type II DM when ready to advance CODE STATUS: Full code Dispo: Medical/surgical (2) Type II diabetes mellitus: (3) Metastatic cancer: (4) History of bilateral breast cancer: (5) Breast cancer metastasized to bone: (6) Hyperlipidemia: History of Present Illness Primary Care Provider: MARKUS Cabezas Harmony is a 71-year-old female with a past medical history of bilateral breast cancer with metastasis to bone, depression/anxiety, diverticulitis, hyperlipidemia, type 2 diabetes mellitus, pathologic pelvic fracture/pathologic lumbosacral fracture, macrocytic anemia, and hypertension who presents to the emergency department with right upper abdominal and flank pain with nausea of 1 day. Went for a walk yesterday. Localized pain RUQ through her belly and abdomen. BMs have been more frequent than normal, usually 2x per day but has gone 3-4x yesterday. Ususally brown. No seema colored, white, blood, black or coffee ground/melanic BMs. No shortness of breath No fevers/chills. No sweats. No chest pain/chest pressure, although feels that the pain in the right abdomen did feel like it radiated into her chest when it was severe. Was 8/10, improved at time of bedside assessment. No similar episodes of pain.Last meal was last night ~midnight. No pain with meals. No sensitivity to greasy/fatty food. Eats small meals.No heart problems. Denies history of lung problems. 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 Denies syncope, presyncope. Did not take MTP today. Took ibrance, dilaudid x1, and gabapentin today. Takes gabapentinj for nerve pain. Takes ~1 dilauded per day, has been weaning that and gabapentin. Gabapentin down to 600mg/day. Medical History: Reviewed Medications: Reviewed Surgical History: Reviewed Allergies: Reviewed Social History:Rare social alcohol use. Smokes cigarettes, 0.75ppd. Has a MM card, not using as didn't like it. Code Status: Full Code Surrogate DM Sister Elsy Syed. Allergies Allergy/AdvReac Type Severity Reaction Status Date / Time fentanyl AdvReac Severe Hallucinati Verified 03/14/22 09:31 on Home Medications Medication Instructions Recorded Confirmed Type cholecalciferol (vitamin D3) 50 50 mcg PO QAM 01/06/22 03/06/22 History mcg (2,000 unit) capsule acetaminophen 325 mg tablet 650 mg PO Q6H PRN pain, mild 02/08/22 03/06/22 History anastrozole 1 mg tablet 1 mg PO DAILY 02/08/22 03/06/22 History multivitamin with minerals 1 cap PO BID 02/08/22 03/06/22 History ofloxacin 0.3 % eye drops 2 drp OPB QID #5 mL 02/25/22 03/06/22 Rx gabapentin 600 mg tablet 600 mg PO TID #90 tabs 03/14/22 03/14/22 Rx hydromorphone 2 mg tablet 4 mg PO Q4H PRN pain 03/14/22 03/14/22 History (Dilaudid) venlafaxine 150 mg 150 mg PO DAILY #30 caps 03/14/22 Rx capsule,extended release 24 hr losartan 100 mg tablet 100 mg PO QAM #90 tabs 05/30/22 Rx metoprolol succinate 100 mg 100 mg PO QAM #90 tabs 07/23/22 Rx tablet,extended release 24 hr omeprazole 20 mg capsule,delayed 20 mg PO QAM #90 caps 07/23/22 Rx release rosuvastatin 5 mg tablet 5 mg PO DAILY #90 tabs 07/23/22 Rx clonazepam 1 mg tablet 1 mg PO BID #60 tabs 08/02/22 Rx Past Med/Surg History Medical History (Updated 08/12/22 @ 16:24 by Phill Kate MD) Acute alteration in mental status Bilateral breast cancer [id number]--sx/chemo/radiation Breast cancer metastasized to bone 2022 Depression with anxiety Diverticular disease Elevated serum creatinine Elevated troponin Hypercapnia Hyperlipidemia Hypertension Hypoxemia Mild mitral valve prolapse hx of; 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/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 Osteoarthritis Pain of right lower extremity Type II diabetes mellitus Vitamin D deficiency Surgical History H/O tubal ligation History of appendectomy History of section History of colonoscopy History of esophagogastroduodenoscopy (EGD) History of left breast biopsy malignant History of lumpectomy of both breasts x2 History of right breast biopsy malignant History of tooth extraction History of wisdom tooth extraction Status post correction of deviated nasal septum Family History Grandmother (Maternal) AAA (abdominal aortic aneurysm) Family history of diabetes mellitus Mother No problems noted. Other No family history of adverse response to anesthesia Social History Smoking Status: Current every day smoker Tobacco Type: Cigarettes Cigarettes Per Day: 10; Second Hand Exposure: No; Hx Alcohol Use: Yes Alcohol type: hard liquor Hx Substance Use: No Preferred Language: Indonesian Communication Ability: Effective Hearing Ability: Normal Drafter Mechanical Required: No Beliefs That Will Affect Care: None marital status: Single Current Living Situation: Family Current Living Situation Comment: Lives with Son and Grandson. 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 NAD. Cooperative. HEENT: Atraumatic, normocephalic. Pupils equal and reactive to light and accommodation Pulm: CTAB A&P. -wheezes, -rales, -rhonchi. Symmetrical chest rise. No increase in work of breathing. No respiratory distress. Cardiac: RRR, -mrg. Radial pulses intact and symmetrical. Abdominal: Mild discomfort on right upper quadrant deep palpation without overt pain/Crespo's. Nondistended, soft. BS present. Results & Data Results & Data ([facility]) Vital Signs (Past 12 Hours) Vital Signs Temp Pulse Resp BP Pulse Ox O2 Del Method 08/12/22 16:22 73 16 88 L Room Air 08/12/22 16:18 77 16 82/57 L 93 08/12/22 13:30 72 16 124/81 94 08/12/22 13:00 70 17 133/80 94 08/12/22 12:30 71 18 174/113 H 96 08/12/22 12:05 70 20 171/105 H 93 08/12/22 11:49 70 12 97 08/12/22 11:00 36.8 C 75 16 156/102 H 96 Room Air PG Care Time/CCT Total # of Minutes Spent Total Time Spent with Patient: Total time spent is greater than 50% in coordination of care (as documented) at patient's floor/unit and/or counseling patient: Coding Level of Care Code 78793 Initial Inpt Care Lvl 2 Diagnoses Acute cholecystitis K81.0 Type II diabetes mellitus E11.9 Metastatic cancer C79.9 History of bilateral breast cancer Z85.3 Breast cancer metastasized to bone C50.919; C79.51 Hyperlipidemia E78.5
[2022-08-12] MEDS ORDERED: cefTRIAXone SODIUM 2,000 MG/70 ML BAG IV STA (16:38)
[2022-08-12] MEDS ORDERED: GLUCAGON FOR INJ 1 MG VIAL SQ PRN (16:50)
[2022-08-12] MEDS ORDERED: DEXTROSE 50% 50 ML SYRINGE IV PRN (16:50)
[2022-08-12] MEDS ORDERED: GLUCOSE 10 TAB/TUBE PO PRN (16:50)
[2022-08-12] MEDS ORDERED: CARBOHYDRATES FOR HYPOGLYCEMIA PO PRN (16:50)
[2022-08-12] MEDS ORDERED: GLUCOSE 40% GEL 15 GM TUBE PO PRN (16:50)
--- NOTE | 2022-08-12 16:50 | Surgery Consultation ---
Date of Consultation August 12, 2022 Assessment & Plan (1) Acute cholecystitis: Exam and labs do not suggest cholecystitis, however CT and US indicate acalculous cholecystitis. BP was 174/113 earlier and troponin is elevated. Would suggest medical evaluation prior to considering cholecystectomy. Consider HIDA scan if she is considered at increased surgical risk. History of Present Illness History of Present Illness 71 y/o female with HTN, DM, metastatic breast cancer with epigastric to RUQ pain radiating around to her back that began around 2 AM. Last meal was stuffed chicken and mashed potatoes yesterday for lunch. Pain improved with morphine. No previous abdominal pains, nausea, bloating or food intolerances. Allergies Allergy/AdvReac Type Severity Reaction Status Date / Time fentanyl AdvReac Severe Hallucinati Verified 03/14/22 09:31 on Home Medications Medication Instructions Recorded Confirmed Type cholecalciferol (vitamin D3) 50 50 mcg PO QAM 01/06/22 03/06/22 History mcg (2,000 unit) capsule acetaminophen 325 mg tablet 650 mg PO Q6H PRN pain, mild 02/08/22 03/06/22 History anastrozole 1 mg tablet 1 mg PO DAILY 02/08/22 03/06/22 History multivitamin with minerals 1 cap PO BID 02/08/22 03/06/22 History ofloxacin 0.3 % eye drops 2 drp OPB QID #5 mL 02/25/22 03/06/22 Rx gabapentin 600 mg tablet 600 mg PO TID #90 tabs 03/14/22 03/14/22 Rx venlafaxine 150 mg 150 mg PO DAILY #30 caps 03/14/22 Rx capsule,extended release 24 hr losartan 100 mg tablet 100 mg PO QAM #90 tabs 05/30/22 Rx metoprolol succinate 100 mg 100 mg PO QAM #90 tabs 07/23/22 Rx tablet,extended release 24 hr omeprazole 20 mg capsule,delayed 20 mg PO QAM #90 caps 07/23/22 Rx release rosuvastatin 5 mg tablet 5 mg PO DAILY #90 tabs 07/23/22 Rx clonazepam 1 mg tablet 1 mg PO BID #60 tabs 08/02/22 Rx hydromorphone 8 mg tablet 4 mg PO Q4 PRN Pain, Severe 08/12/22 08/12/22 History Patient History Medical History Acute alteration in mental status Bilateral breast cancer [id number]--sx/chemo/radiation Breast cancer metastasized to bone 2021 Depression with anxiety Diverticular disease Elevated serum creatinine Elevated troponin Hypercapnia Hyperlipidemia Hypertension Hypoxemia Mild mitral valve prolapse hx of; 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 Osteoarthritis Pain of right lower extremity Type II diabetes mellitus Vitamin D deficiency Surgical History H/O tubal ligation History of appendectomy History of section History of colonoscopy History of esophagogastroduodenoscopy (EGD) History of left breast biopsy malignant History of lumpectomy of both breasts x2 History of right breast biopsy malignant History of tooth extraction History of wisdom tooth extraction Status post correction of deviated nasal septum Family History Grandmother (Maternal) AAA (abdominal aortic aneurysm) Family history of diabetes mellitus Mother No problems noted. Other No family history of adverse response to anesthesia Social History Smoking Status: Current every day smoker Tobacco Type: Cigarettes Cigarettes Per Day: 10; Second Hand Exposure: No; Hx Alcohol Use: Yes Alcohol type: hard liquor Hx Substance Use: No Preferred Language: Anguillan Communication Ability: Effective Hearing Ability: Normal Avionics Systems Repairer Required: No Beliefs That Will Affect Care: None marital status: Single Current Living Situation: Family Current Living Situation Comment: Lives with Son and Grandson. 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 Children do You have: 1 Feels Safe at Home: Yes Seatbelt Use: always Sunscreen Use: Yes Assistive Devices: Glasses Review of Systems Constitutional: no fever, no chills and no anorexia Respiratory: no cough and no dyspnea Cardiovascular: no chest pain and no chest pain with activity Gastrointestinal: + abdominal pain, + heartburn and + nausea; no bloating and no vomiting Physical Exam Constitutional: WD/WN, vitals as above Respiratory: normal respiratory effort, lungs clear to auscultation Cardiovascular: RRR, no murmur, no edema Gastrointestinal (Abdomen): Inspection/Auscultation: + abdominal surgical scar; abdomen not distended Percussion/Palpation: abdomen soft; abdomen nontender and no guarding Results & Data ([facility]) Vital Signs (Past 12 Hours) Vital Signs Temp Pulse Resp BP Pulse Ox O2 Del Method O2 Flow Rate 08/12/22 16:24 73 16 94 Nasal Cannula 2 08/12/22 16:22 73 16 88 L Room Air 08/12/22 16:18 77 16 82/57 L 93 08/12/22 13:30 72 16 124/81 94 08/12/22 13:00 70 17 133/80 94 08/12/22 12:30 71 18 174/113 H 96 08/12/22 12:05 70 20 171/105 H 93 08/12/22 11:49 70 12 97 08/12/22 11:00 36.8 C 75 16 156/102 H 96 Room Air PG Care Time/CCT Total # of Minutes Spent Total Time Spent with Patient: Total time spent is greater than 50% in coordination of care (as documented) at patient's floor/unit and/or counseling patient: Coding Level of Care Code 63722 Initial Inpt Care Lvl 1 Diagnoses Acute cholecystitis K81.0
[2022-08-12] MEDS ORDERED: ACETAMINOPHEN 325 MG TAB PO PRN (19:38)
[2022-08-12] MEDS ORDERED: ONDANSETRON INJ 2 MG/ML 2 ML VIAL IV PRN (19:38)
[2022-08-12] MEDS ORDERED: POLYETHYLENE (MIRALAX) 17 GM PACK PO PRN (19:38)
[2022-08-12] MEDS ORDERED: INSULIN ASPART PER UNIT SC SCH (21:00)
[2022-08-12] MEDS: metroNIDAZOLE 500 MG/100 ML BAG IV SCH (23:31)
[2022-08-12] MEDS: clonazePAM 1 MG TAB PO SCH (23:31)
[2022-08-12] MEDS: NSS + 20MEQ KCL 20 MEQ/1,000 ML BAG IV SCH (23:31)
[2022-08-13] MEDS: metroNIDAZOLE 500 MG/100 ML BAG IV SCH ×3 (05:34→21:29)
[2022-08-13] MEDS: INSULIN ASPART PER UNIT SC SCH ×4 (05:53→21:27)
[2022-08-13 07:09] LABS: BUN Creatinine Ratio 8.6 (10-20); Calcium 7.4 mg/dl (8.5-10.1); Creatinine Clr Calc Pharmacy 45.3 ml/min; Est GFR (African American) 55.6 ml/min; Potassium 4.5 mmol/L (3.5-5.1)
[2022-08-13 07:32] LABS: Estimated Average Glucose 114 mg/dl; Hemoglobin A1C 5.6 % (4.5-5.6)
[2022-08-13 08:35] LABS: Basophils # (auto) 0.04 K/uL (0-0.2); Eosinophils # (auto) 0.04 K/uL (0-0.50); Hematocrit (blood only) 33.9 % (34.1-44.9); Hemoglobin 11.4 g/dl (12.0-16.0); Immature Granulocytes # (auto) 0.03 K/uL (0.00-0.02); Immature Granulocytes % (auto) 0.7 %; Lymphocytes # (auto) 0.82 K/uL (1.2-3.4); Lymphocytes % (auto) 19.5 %; Mean Corpuscular Hemoglobin 36.8 pg (25.0-34.0); Mean Corpuscular Hgb Conc 33.6 g/dL (32.0-36.0); Mean Corpuscular Volume 109.4 fL (80.0-100.0); Mean Platelet Volume 9.7 fL (9.4-12.3); Monocytes # (auto) 0.18 K/uL (0.24-0.82); Monocytes % (auto) 4.3 %; Neutrophils % (auto) 73.5 %; Platelet Count 274 K/uL (130-400); RDW Coefficient of Variation 16.5 % (11.5-14.5); RDW Standard Deviation 66.9 fL (36.4-46.3); White Blood Count 4.21 K/ul (4.8-10.8)
[2022-08-13] MEDS: ROSUVASTATIN CALCIUM 5 MG TAB PO SCH (09:03)
[2022-08-13] MEDS: METOPROLOL SUCC 50MG EXT REL TAB PO SCH (09:03)
[2022-08-13] MEDS: GABAPENTIN 600 MG TAB PO SCH (09:03)
[2022-08-13] MEDS: ANASTROZOLE 1 MG TAB PO SCH (09:04)
[2022-08-13] MEDS: CHOLECALCIFEROL 1,000 UNITS 25 MCG TAB PO SCH (09:04)
[2022-08-13] MEDS: VENLAFAXINE HCL XR 150 MG CAPXR PO SCH (09:04)
[2022-08-13] MEDS: clonazePAM 1 MG TAB PO SCH ×2 (09:08→21:27)
[2022-08-13] MEDS: cefTRIAXone SODIUM 2,000 MG in DEXTROSE 5% 50 ML IV SCH (09:13)
[2022-08-13] MEDS: NSS + 20MEQ KCL 20 MEQ/1,000 ML BAG IV SCH ×2 (09:58→18:08)
[2022-08-13] MEDS ORDERED: MoRPHine SULFATE 2 MG/ML CARP ONE (10:39)
--- NOTE | 2022-08-13 11:44 | Nuclear Medicine Report ---
NUCLEAR HEPATOBILIARY SCAN CLINICAL HISTORY: Right upper quadrant abdominal pain. Cholecystitis. COMPARISON STUDY: Abdominal CT and ultrasound dated 08/12/2022. TECHNIQUE: Dynamic images of the liver and anterior abdomen were obtained every 5 minutes for a total of 60 minutes following the IV administration of 5.5 mCi of technetium 99m Mebrofenin. 2 mg of IV mo rphine was then administered with continued imaging performed every 5 minutes for an additional 30 mi nutes. FINDINGS: The hepatobiliary scan shows prompt and homogeneous hepatic uptake. There is visualized act ivity within the intra and extrahepatic biliary tree at 10 minutes. There is normal biliary to bowel transit, with small bowel visualized by 15 minutes. The gallbladder was not visualized at 60 minutes . The gallbladder was also not seen at 90 minutes following morphine administration. IMPRESSION: Acute cholecystitis. ACT 112: Negative or not required by law. Electronically signed by: Ho Roy M.D. 08/13/2022 11:43 AM
--- NOTE | 2022-08-13 12:22 | Surgery Progress Note ---
Date of Service August 13, 2022 Assessment & Plan (1) Acute cholecystitis: Plan: Patient here with RUQ abdominal pain, CT and RUQ made question of acalculous cholecystitis Today WBC 4.2 HIDA obtained today for further workup that was + for acute sirena On exam patient is tender to palpation in the RUQ Pt has been NPO, we will proceed with lap sirena this afternoon Admission and Anticipated Discharge Date Admission Date: August 12, 2022 Supervising Physician Co-Signing Physician Notes Patient seen and examined, labs image reviewed, agree with above. 71-year-old female with metastatic breast cancer presented with evidence of a calculus cholecystitis. HIDA scan performed today confirmed the diagnosis. Afebrile stable vitals. Tender to palpation in the right upper quadrant with deep palpation. HIDA scan and other imaging reviewed, agree with the assessment. Plan for laparoscopic cholecystectomy with possible cholangiogram. risks discussed to include but not limited to bleeding, infection, retained stone, bile leak, open surgery, damage to surrounding structures including bile duct, need for future or more extensive surgery, failure to treat symptoms, and risks of anesthesia. Subjective Patient reports feeling better. Denies any abdominal pain currently. No fevers/chills, nausea/vomiting. Says she is hungry and asking when she can go home. Does have some leg pain as she did not take her typical pain meds this AM in anticipation for HIDA. Physical Exam Physical Exam: awake/alert, no distress Gastrointestinal (Abdomen): Inspection/Auscultation: + abdomen distended Percussion/Palpation: + abdomen tender (ttp in RUQ) and abdomen soft Results & Data ([facility]) Vital Signs (Past 12 Hours) Vital Signs Temp Pulse Resp BP Pulse Ox O2 Del Method 08/13/22 07:43 36.6 C 81 16 113/69 94 Room Air PG Care Time/CCT Total # of Minutes Spent Total Time Spent with Patient: Total time spent is greater than 50% in coordination of care (as documented) at patient's floor/unit and/or counseling patient: Coding Level of Care Code 29331 Subseq Hosp Care Lvl 1 Diagnoses Acute cholecystitis K81.0
[2022-08-13] MEDS ORDERED: PROPOFOL IV EMULSION 10 MG/ML 20 ML VIAL IV ONE (12:59)
[2022-08-13] MEDS ORDERED: MIDAZOLAM HCL 1 MG/ML 2ML VIAL ONE (12:59)
[2022-08-13] MEDS ORDERED: LIDOCAINE 2% MPF LOCAL 5 ML VIAL INFIL ONE (12:59)
[2022-08-13] MEDS ORDERED: HYDROmorphone INJ 2 MG/ML SYR/VIAL IV PRN (13:27)
[2022-08-13] MEDS ORDERED: ePHEDrine sulfate 50 MG/ML AMP IV PRN (13:27)
[2022-08-13] MEDS ORDERED: ATROPINE SULFATE 0.1 MG/ML 10ML SYR IV PRN (13:27)
[2022-08-13] MEDS ORDERED: ONDANSETRON INJ 2 MG/ML 2 ML VIAL IV PRN (13:27)
--- NOTE | 2022-08-13 13:27 | Anesthesiology Consultation ---
Date of Service August 13, 2022 Assessment & Plan ASA ASA4 Proposed Anesthesia Anesthesia Type: General Risk / Benefits Reviewed With: PT / POA / Parent / Guardian, Accepts Plan and Informed Consent Obtained History Surgery Operation Date: 08/13/22 10:50 Proposed Procedures p Laparoscopic Cholecystectomy - Alexandro Alvarez DO, FACS Height/Weight Height: 5 ft 3.5 in Weight: 76.294 kg Allergies Allergy/AdvReac Type Severity Reaction Status Date / Time fentanyl AdvReac Severe Hallucinati Verified 08/12/22 17:25 on Medications Home Medications Medication Instructions Recorded Confirmed Last Taken cholecalciferol (vitamin D3) 50 50 mcg PO QAM 01/06/22 08/12/22 08/12/22 mcg (2,000 unit) capsule acetaminophen 325 mg tablet 650 mg PO Q6H PRN pain, mild 02/08/22 08/12/22 Unknown anastrozole 1 mg tablet 1 mg PO QAM 02/08/22 08/12/22 08/12/22 multivitamin with minerals 1 cap PO QAM 02/08/22 08/12/22 08/12/22 losartan 100 mg tablet 100 mg PO QAM #90 tabs 05/30/22 08/12/22 08/12/22 metoprolol succinate 100 mg 100 mg PO QAM #90 tabs 07/23/22 08/12/22 08/12/22 tablet,extended release 24 hr omeprazole 20 mg capsule,delayed 20 mg PO QAM #90 caps 07/23/22 08/12/22 08/12/22 release rosuvastatin 5 mg tablet 5 mg PO DAILY #90 tabs 07/23/22 08/12/22 08/12/22 clonazepam 1 mg tablet 1 mg PO BID #60 tabs 08/02/22 08/12/22 08/12/22 Ibrance 1 dose PO UD 08/12/22 08/12/22 08/12/22 calcium carbonate 600 mg-vitamin 1 tab PO QAM 08/12/22 08/12/22 08/12/22 D3 10 mcg (400 unit) tablet (Calcium 600 + D(3)) gabapentin 600 mg tablet 600 mg PO QAM 08/12/22 08/12/22 08/12/22 hydromorphone 8 mg tablet 4 mg PO Q4 PRN Pain, Severe 08/12/22 08/12/2208/12/22 am magnesium 250 mg tablet 250 mg PO DAILY 08/12/22 08/12/22 08/12/22 venlafaxine 150 mg 150 mg PO QAM 08/12/22 08/12/22 08/12/22 capsule,extended release 24 hr Active Medications Generic Name Dose Route Start Last Admin Trade Name Lashawn PRN Reason Stop Dose Admin Acetaminophen 650 mg 08/12/22 19:38 08/12/22 23:43 Acetaminophen 325 Mg Tab PO 09/11/22 19:37 650 mg Q4H PRN Administration pain/fever Anastrozole 1 mg 08/13/22 09:00 08/13/22 09:04 Anastrozole 1 Mg Tab PO 09/12/22 08:59 1 mg DAILY VI Administration Clonazepam 1 mg 08/12/22 21:00 08/13/22 09:08 Clonazepam 1 Mg Tab PO 09/11/22 20:59 1 mg BID VI Administration Gabapentin 600 mg 08/13/22 09:00 08/13/22 09:03 Gabapentin 600 Mg Tab PO 09/12/22 08:59 600 mg DAILY VI Administration Metronidazole 500 mg in 100 mls @ 100 mls/hr 08/12/22 20:00 08/13/22 06:39 Flagyl IV 08/22/22 19:59 Infused Q8H VI Infusion Ceftriaxone Sodium 2,000 mg/ 70 mls @ 100 mls/hr 08/13/22 09:00 08/13/22 09:55 Dextrose IV 08/23/22 08:59 Infused DAILY VI Infusion Protocol Potassium Chloride/Sodium Chloride 20 meq in 1,000 mls @ 120 mls/hr 08/12/22 19:38 08/13/22 09:58 Normal Saline W/20 Meq Kcl IV 08/14/22 00:14 120 mls/hr .Q8H20M VI Administration Protocol Insulin Aspart 0 units 08/13/22 06:00 08/13/22 13:04 Insulin Aspart Per Unit SC 09/12/22 05:59 Not Given Q6 VI Metoprolol Succinate 100 mg 08/13/22 09:00 08/13/22 09:03 Metoprolol Succ 50mg Ext Rel Tab PO 09/12/22 08:59 100 mg QAM VI Administration Rosuvastatin Calcium 5 mg 08/13/22 09:00 08/13/22 09:03 Rosuvastatin Calcium 5 Mg Tab PO 09/12/22 08:59 5 mg DAILY VI Administration Venlafaxine HCl 150 mg 08/13/22 09:00 08/13/22 09:04 Venlafaxine Hcl Xr 150 Mg Capxr PO 09/12/22 08:59 150 mg DAILY VI Administration Vitamin D 2,000 units 08/13/22 09:00 08/13/22 09:04 Cholecalciferol 1,000 Units 25 Mcg Tab PO 09/12/22 08:59 2,000 units QAM VI Administration NPO Date Last Intake of Fluids: 08/12/22 Time Last Intake of Fluids: 22:00 Last Intake of Fluids Comment: 929 sip water for meds Date Last Intake of Solids: 08/12/22 Time Last Intake of Solids: 22:00 Past Medical History Medical History Acute alteration in mental status Bilateral breast cancer [id number]--sx/chemo/radiation Breast cancer metastasized to bone 2021 Depression with anxiety Diverticular disease Elevated serum creatinine Elevated troponin Hypercapnia Hyperlipidemia Hypertension Hypoxemia Mild mitral valve prolapse hx of; 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 Other No family history of adverse response to anesthesia Past Surgical History Surgical History H/O tubal ligation History of appendectomy History of section History of colonoscopy History of esophagogastroduodenoscopy (EGD) History of left breast biopsy malignant History of lumpectomy of both breasts x2 History of right breast biopsy malignant History of tooth extraction History of wisdom tooth extraction Status post correction of deviated nasal septum Past Anesthesia History No Hx of Anesthesia Complications and No Family Hx of Anesthesia Complications History of PONV No Hx of PONV and No Hx of Motion Sickness Social History Smoking Status: Current every day smoker tobacco type: cigarettes Smoking cigarettes per day: 10 Do You Dip or Chew Tobacco: No Hx Alcohol Use: Yes Alcohol type: hard liquor alcohol intake frequency: a few times a month Alcohol Intake Frequency Comment: rum and coke Hx Substance Use: No substance use type: does not use Review of Systems denies fever/cough/ colds/ chest pain/ SOB/ OSCAR denies OSCAR Physical Exam Vital Signs Last Vital Signs Temp 37.1 C 08/13/22 13:11 Pulse 66 08/13/22 13:11 Resp 20 08/13/22 13:11 BP 147/86 H 08/13/22 13:11 Pulse Ox 97 08/13/22 13:11 O2 Del Method 08/13/22 13:11 O2 Flow Rate 2 08/12/22 21:30 ENMT Mouth: + dentures; no TMJ abnormality and no dentition abnormality Thyromental Distance: > or= 3.5 Finger Breadths Mallampati Class: II Neck neck extension not limited Respiratory normal respiratory effort; no respiratory distress Auscultation: lungs clear to auscultation bilaterally Cardiovascular Rate/Rhythm: regular rate and regular rhythm Neurologic moves all extremities Psychiatric Orientation: alert and oriented x 3 Testing Laboratory Results 08/13/22 07:59 08/13/22 06:28 PT 9.9 Seconds (9.0-12.0) 08/12/22 12:03 INR 0.9 (0.9-1.1) 08/12/22 12:03 APTT 27.2 Seconds (21.0-31.0) 08/12/22 12:03 Hemoglobin A1c 5.6 % (4.5-5.6) 08/13/22 06:28 08/13/22 08/13/22 12:15 05:37 POC Glucose 95 82
[2022-08-13] MEDS ORDERED: HYDROmorphone INJ 2 MG/ML SYR/VIAL ONE (13:44)
[2022-08-13] MEDS ORDERED: NEOSTIGMINE METHYLSULFATE 1 MG/ML 10ML VIAL ONE (13:56)
[2022-08-13] MEDS ORDERED: ONDANSETRON INJ 2 MG/ML 2 ML VIAL ONE (13:56)
[2022-08-13] MEDS ORDERED: GLYCOPYRROLATE 0.2 MG/ML VIAL ONE (13:56)
[2022-08-13] MEDS: BUPIVACAINE 0.5 % 5 MG/1 ML MPF 30ML VIAL ONE ×2 (14:06→14:44)
--- NOTE | 2022-08-13 14:45 | Hospitalist Progress Note ---
Date of Service August 13, 2022 Assessment & Plan (1) Acute cholecystitis: Plan: HIDA scan positive. Plan for surgery today. Metastatic breast cancer, sacral soft tissue mass s/p palliative RT ER/MD positive, HER2 negative with positive sentinel lymph nodes and mets to bone With history of chemotherapy and radiation. Last received palliative radiation and was started on Arimidex 01/2022, Ibrance 03/2022. - Continued on anastrozole/Ibrance, recently started on monthly denosumab Patient with significant pelvic pain, has been referred to pain management for nerve block/injections Hypertension BP today is 150/85. Continue metoprolol succinate 100 mg daily. Losartan temporarily held Type 2 diabetes mellitus A1c was 5.6% this admission. 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 SSI conservative, goal BSG [id number]. CF 50, carb ratio 25. HLD: Continue rosuvastatin 5 mg daily Depression/anxiety Continue venlafaxine Clonazepam dose decreased to 1 mg p.o. twice daily at last admission DVT prophylaxis: SCDs, heparin prophylaxis held pending surgical eval Diet: NPO until after surgery CODE STATUS: Full code Dispo: Medical/surgical (2) Type II diabetes mellitus: (3) Metastatic cancer: (4) History of bilateral breast cancer: (5) Breast cancer metastasized to bone: (6) Hyperlipidemia: Admission and Anticipated Discharge Date Admission Date: August 12, 2022 Subjective Doing fairly well today. Seen prior to surgery. Minimal/moderate pain. No nausea. Reports no fevers/chills, chest pain, shortness of breath, or vomiting. Physical Exam Constitutional: WD/WN, vitals as above Eyes: EOM intact bilaterally; no conjunctival abnormality ENMT: external ear and nose normal, oropharynx normal Neck: trachea midline, no thyromegaly normal visual inspection Respiratory: normal respiratory effort, lungs clear to auscultation no respiratory distress Cardiovascular: RRR, no murmur, no edema Gastrointestinal (Abdomen): Inspection/Auscultation: abdomen normal to inspection; abdomen not distended Musculoskeletal: no cyanosis or clubbing, extremities motor strength 5/5 Skin: no rashes, warm and dry Neurologic: moves all extremities and awake Psychiatric: Orientation: alert, oriented to person and cooperative Results & Data Results & Data ([facility]) Vital Signs (Past 12 Hours) Vital Signs Temp Pulse Resp BP Pulse Ox O2 Del Method 09/20/22 13:11 37.1 C 66 20 147/86 H 97 Room Air 08/13/22 07:43 36.6 C 81 16 113/69 94 Room Air PG Care Time/CCT Total # of Minutes Spent Total Time Spent with Patient: Total time spent is greater than 50% in coordination of care (as documented) at patient's floor/unit and/or counseling patient: Coding Level of Care Code 83842 Subseq Hosp Care Lvl 2 Diagnoses Acute cholecystitis K81.0 Type II diabetes mellitus E11.9 Metastatic cancer C79.9 History of bilateral breast cancer Z85.3 Breast cancer metastasized to bone C50.919; C79.51 Hyperlipidemia E78.5
--- NOTE | 2022-08-13 14:52 | Operative Report ---
PG Post Operative Report Pre & Post Diagnosis Operation Date: 08/13/22 10:50 Pre-Op Diagnosis: Acute acalculous cholecystitis Post-Op Diagnosis: Acute acalculous cholecystitis, gallbladder hydrops I identified the patient and participated in the time-out.: Yes Procedure Operation Date: 08/13/22 10:50 Actual Procedures p Laparoscopic Cholecystectomy - Alexandro Alvarez DO, JEISON Surgeon Alexandro Alvarez DO, JEISON Busher Helper Morgan Mayes Estimated Blood Loss 15 Findings Consistent with Post-Op Diagnosis Omental adhesions taken down from gallbladder and falciform ligament with electrocautery and sharp dissection. Gallbladder aspirated to allow for retraction. Hydrops of the gallbladder present. Window of safety obtained, cystic artery clipped and divided. Duct clipped but it did not appear the clips were all the way across, duct stapled with 30 mm miranda loaded Endo CHRIS stapler. Specimens Gallbladder Anesthesia Type General Complications none Disposition Accompanied Patient To Recovery: No Disposition: Recovery Room Indications 71-year-old female with metastatic breast cancer presented with abdominal and chest pain. CT and ultrasound suggested a calculus cholecystitis, HIDA scan confirmed. Plan for laparoscopic cholecystectomy with possible cholangiogram. The risks of the procedure were discussed, all questions were answered, and the patient agreed to proceed with surgery as planned. Description of Procedure The patient was properly identified, consented, and taken to the operating room where she was placed in the supine position. General endotracheal anesthesia was induced. SCDs and a safety belt were placed. Preoperative antibiotics were administered. The patient's abdomen was prepped and draped in the standard sterile fashion. A surgical timeout was performed and all parties were in agreement that this was the correct patient and procedure to be performed and we continued as planned. An incision was made superior and to the left of the umbilicus overlying the rectus muscle and the Veress needle was inserted. Saline drop test confirmed entry into the peritoneum. The abdomen was insufflated with carbon dioxide which the patient tolerated without incident. The abdomen was then entered using the Optiview technique and a 5 mm trocar. The laparoscope was inserted and no damage from initial trocar or Veress needle placement was noted, no gross abnormalities were noted within the 4 quadrants of the abdomen. There were some adhesions of the omentum to the falciform ligament. An 11 mm port was placed in the subxiphoid position and two 5 mm ports were then placed in the right subcostal position. The patient was placed in reverse Trendelenburg position and rotated towards the left. The adhesions of the omentum to the falciform ligament were taken down with sharp dissection to allow for better visualization of the camera. There were omental adhesions to the dome of the gallbladder and the gallbladder was distended and moderately inflamed. These adhesions were taken down with a combination of blunt dissection and electrocautery. The gallbladder was aspirated to allow for retraction. It appeared to have hydrops of the gallbladder. The dome of the gallbladder was retracted towards the left upper quadrant and the infundibulum was retracted toward the right lower quadrant revealing Calot's triangle. Peritoneal attachments were taken down with electrocautery and blunt dissection. The cystic duct and artery were circumferentially dissected. A window of safety was obtained showing the cystic duct entering the gallbladder with no aberrant structures noted. The cystic was doubly clipped and divided. An additional bleeding branch of the cystic artery was clipped and divided. The cystic duct was dilated and we attempted to clip, but the clips appeared to be a millimeter too short. We then upsized to a 12 mm port. A 30 mm miranda loaded Endo CHRIS stapler was then placed in the cystic duct was divided. The gallbladder was then lifted off the gallbladder fossa with electrocautery. A posterior branch of the cystic artery was clipped and divided. The gallbladder was placed in an Endo Catch bag and removed through the subxiphoid port site. The right upper quadrant was irrigated and hemostasis was found to be good. 5 mm trochars were removed under direct visualization and the abdomen was allowed to collapse. The subxiphoid port site fascia was closed with 0 Vicryl suture. The wound was irrigated, and the skin of all ports was closed with 4-0 Monocryl subcuticular sutures. Dermabond was placed over the wounds. The patient was extubated in the operating room and taken to the PACU where she recovered without apparent incident. All sponge, instrument and needle counts were correct at the conclusion of the procedure. The patient tolerated the procedure well. The physician's assistant dean of students was present and scrubbed for the entirety of the case and was essential in positioning the patient, prepping and draping, retraction and exposure, driving the laparoscope, removal of the gallbladder, closure the incisions, and placement of the dressings. I attest to the content of the Intraoperative Record and any orders documented therein. Any exceptions are noted below.
[2022-08-13] MEDS ORDERED: LABETALOL HCL IV 5 MG/ML 20ML IV PRN (15:22)
--- NOTE | 2022-08-13 16:07 | Anesthesiology Progress Note ---
Date of Service August 13, 2022 Anesthesia Post Procedure Vital Signs Vital Signs: Temp Pulse Pulse Pulse Resp BP BP 08/13/22 15:55 97.5 F L 73 20 152/82 H 08/13/22 15:45 74 14 118/72 08/13/22 15:35 76 18 154/81 H 08/13/22 15:25 73 17 155/89 H 08/13/22 15:15 75 18 171/95 H 08/13/22 15:05 97.3 F L 73 16 165/135 H 08/13/22 13:11 98.8 F 66 20 147/86 H 08/13/22 07:43 97.9 F 81 16 113/69 08/12/22 22:00 97.7 F 72 16 156/97 H 08/12/22 21:30 75 18 133/93 08/12/22 18:33 76 20 122/74 08/12/22 17:00 69 16 132/73 08/12/22 16:29 76 18 84/63 L 08/12/22 16:20 76 20 82/57 L 08/12/22 16:24 73 16 08/12/22 16:22 73 16 08/12/22 16:18 77 16 82/57 L Pulse Ox O2 Del Method O2 Flow Rate 08/13/22 15:55 96 Nasal Cannula 3 08/13/22 15:45 97 Nasal Cannula 3 08/13/22 15:35 94 Nasal Cannula, Oxymask 3 08/13/22 15:25 96 Oxymask 4 08/13/22 15:15 99 Oxymask 6 08/13/22 15:05 100 Oxymask 8 08/13/22 13:11 97 Room Air 08/13/22 07:43 94 Room Air 08/12/22 22:00 97 Room Air 08/12/22 21:30 100 Nasal Cannula 2 08/12/22 18:33 96 Nasal Cannula 2 08/12/22 17:00 98 2 08/12/22 16:29 97 Nasal Cannula 2 08/12/22 16:20 90 Nasal Cannula 2 08/12/22 16:24 94 Nasal Cannula 2 08/12/22 16:22 88 L Room Air 08/12/22 16:18 93 Pain Intensity Right Thigh: Pain Intensity: 3 Abdomen: Pain Intensity: 5 Transfer of Care Handoff Completed per policy Notes Mental Status: alert / awake / arousable and participated in evaluation Patient Amnestic to Procedure: Yes Nausea / Vomiting: adequately controlled Pain: adequately controlled Airway Patency, RR, SpO2: stable & adequate BP & HR: stable & adequate Hydration State: stable & adequate Anesthetic Complications: no major complications apparent and Pt Satisfied with anesthetic care
[2022-08-13] MEDS ORDERED: oxyCODONE HCL IR 5 MG TAB (IMMEDIATE RELEASE) PO PRN ×2 (16:13)
[2022-08-13] MEDS ORDERED: MoRPHine SULFATE 2 MG/ML CARP IV PRN (16:13)
[2022-08-13] MEDS ORDERED: MoRPHine SULFATE 4 MG/ML 1 ML CARP\\VIAL IV PRN (16:13)
[2022-08-14] MEDS: metroNIDAZOLE 500 MG/100 ML BAG IV SCH (06:27)
[2022-08-14 06:57] LABS: Hematocrit (blood only) 30.9 % (34.1-44.9); Hemoglobin 10.4 g/dl (12.0-16.0); Mean Corpuscular Hemoglobin 37.5 pg (25.0-34.0); Mean Corpuscular Hgb Conc 33.7 g/dL (32.0-36.0); Mean Corpuscular Volume 111.6 fL (80.0-100.0); Mean Platelet Volume 9.4 fL (9.4-12.3); Platelet Count 238 K/uL (130-400); RDW Coefficient of Variation 15.9 % (11.5-14.5); RDW Standard Deviation 66.1 fL (36.4-46.3); Red Blood Count 2.77 M/uL (3.93-5.22); White Blood Count 4.91 K/ul (4.8-10.8)
[2022-08-14 07:17] LABS: Albumin Globulin Ratio 1.3 (0.9-2); Albumin Level 3.4 gm/dl (3.4-5.0); BUN Creatinine Ratio 7.7 (10-20); Bilirubin,Total 0.4 mg/dl (0.2-1.0); Calcium 6.9 mg/dl (8.5-10.1); Creatinine Clr Calc Pharmacy 57.7 ml/min; Est GFR (African American) 74.6 ml/min; Est GFR (Non-African American) 64.4 ml/min; Globulin 2.7 gm/dl (2.5-4.0); Magnesium 1.7 mg/dl (1.7-2.4); Potassium 4.3 mmol/L (3.5-5.1); Total Protein 6.1 gm/dl (6.0-8.3)
[2022-08-14 07:34] LABS: Basophils # (auto) 0.04 K/uL (0-0.2); Basophils % (auto) 0.8 %; Eosinophils # (auto) 0.07 K/uL (0-0.50); Eosinophils % (auto) 1.4 %; Immature Granulocytes # (auto) 0.02 K/uL (0.00-0.02); Immature Granulocytes % (auto) 0.4 %; Lymphocytes # (auto) 0.81 K/uL (1.2-3.4); Lymphocytes % (auto) 16.5 %; Macrocytosis Present; Monocytes # (auto) 0.22 K/uL (0.24-0.82); Monocytes % (auto) 4.5 %; Neutrophils # (auto) 3.75 K/uL (1.4-6.5); Neutrophils % (auto) 76.4 %
[2022-08-14] MEDS: clonazePAM 1 MG TAB PO SCH (08:25)
[2022-08-14] MEDS: ROSUVASTATIN CALCIUM 5 MG TAB PO SCH (08:25)
[2022-08-14] MEDS: METOPROLOL SUCC 50MG EXT REL TAB PO SCH (08:25)
[2022-08-14] MEDS: GABAPENTIN 600 MG TAB PO SCH (08:25)
[2022-08-14] MEDS: CHOLECALCIFEROL 1,000 UNITS 25 MCG TAB PO SCH (08:25)
[2022-08-14] MEDS: VENLAFAXINE HCL XR 150 MG CAPXR PO SCH (08:26)
[2022-08-14] MEDS: ANASTROZOLE 1 MG TAB PO SCH (08:26)
[2022-08-14] MEDS: INSULIN ASPART PER UNIT SC SCH (08:30)
[2022-08-14] MEDS: cefTRIAXone SODIUM 2,000 MG in DEXTROSE 5% 50 ML IV SCH (08:33)
--- NOTE | 2022-08-14 09:09 | Surgery Progress Note ---
Date of Service August 14, 2022 Assessment & Plan (1) Acute cholecystitis: Plan: POD 1 lap sirena stable post op ok for d/c from surgical standpoint f/u 2 weeks hydromorphone she has at home should be sufficient, no further abx Admission and Anticipated Discharge Date Admission Date: August 12, 2022 Supervising Physician Co-Signing Physician Notes Patient seen and examined, labs and imaging reviewed, agree with above. POD #1 laparoscopic cholecystectomy for acalculous cholecystitis. Feeling much better. On exam she is afebrile stable vitals. Abdomen soft, probably tender to palpation, incisions Dermabond. Tolerated regular diet. DC to home, wound care instructions and activity restrictions reviewed, follow-up in 2 weeks Subjective tolerating regular diet, po analgesics, no c/o Physical Exam Gastrointestinal (Abdomen): Inspection/Auscultation: + abdominal surgical incision (dry); abdomen not distended Percussion/Palpation: abdomen soft Results & Data ([facility]) Vital Signs (Past 12 Hours) Vital Signs Temp Pulse Resp BP Pulse Ox O2 Del Method O2 Flow Rate 08/14/22 07:30 37.0 C 70 16 130/84 94 Room Air 08/14/22 03:25 36.5 C 72 18 135/78 99 Nasal Cannula 2 08/13/22 22:03 36.6 C 78 16 138/85 97 Nasal Cannula 2 PG Care Time/CCT Total # of Minutes Spent Total Time Spent with Patient: Total time spent is greater than 50% in coordination of care (as documented) at patient's floor/unit and/or counseling patient: Coding Level of Care Code None Diagnoses Acute cholecystitis K81.0
--- NOTE | 2022-08-14 17:34 | Discharge Summary ---
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 Went for a walk yesterday. Localized pain RUQ through her belly and abdomen. BMs have been more frequent than normal, usually 2x per day but has gone 3-4x yesterday. Ususally brown. No seema colored, white, blood, black or coffee ground/melanic BMs. No shortness of breath No fevers/chills. No sweats. No chest pain/chest pressure, although feels that the pain in the right abdomen did feel like it radiated into her chest when it was severe. Was 8/10, improved at time of bedside assessment. No similar episodes of pain.Last meal was last night ~midnight. No pain with meals. No sensitivity to greasy/fatty food. Eats small meals.No heart problems. Denies history of lung problems. 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 Denies syncope, presyncope. Did not take MTP today. Took ibrance, dilaudid x1, and gabapentin today. Takes gabapentinj for nerve pain. Takes ~1 dilauded per day, has been weaning that and gabapentin. Gabapentin down to 600mg/day. Medical History: Reviewed Medications: Reviewed Surgical History: Reviewed Allergies: Reviewed Social History:Rare social alcohol use. Smokes cigarettes, 0.75ppd. Has a MM card, not using as didn't like it. Code Status: Full Code Surrogate DM Sister Elsy Syed. Principal Diagnosis Cholecystitis Discharge Exam Constitutional WD/WN, vitals as above Eyes EOM intact bilaterally; no conjunctival abnormality ENMT external ear and nose normal, oropharynx normal Neck trachea midline, no thyromegaly normal visual inspection Respiratory normal respiratory effort, lungs clear to auscultation no respiratory distress Cardiovascular RRR, no murmur, no edema Gastrointestinal (Abdomen) Inspection/Auscultation: abdomen normal to inspection; abdomen not distended Musculoskeletal no cyanosis or clubbing, extremities motor strength 5/5 Skin no rashes, warm and dry Neurologic moves all extremities and awake Psychiatric Orientation: alert, oriented to person and cooperative Discharge Data Allergies Allergy/AdvReac Type Severity Reaction Status Date / Time fentanyl AdvReac Severe Hallucinati Verified 08/12/22 17:25 on Consultations 08/12/22 16:38 ED Decision to Admit Stat 08/12/22 19:38 Consult General Surgery Routine Procedures Performed Operation Date: 08/13/22 10:50 Actual Procedures p Laparoscopic Cholecystectomy - Alexandro Alvarez, DO, FACS Ordered Studies 08/12/22 12:10 CT abd pelvis IV con only Stat CT angio chest PE protocol Stat 08/12/22 15:21 US gallbladder Stat Hospital Course (1) Acute cholecystitis: HIDA scan positive. S/p lap sirena on 08/13. - Cleared by surgery for discharge on 08/14. Patient passing gas, but no BM yet. Pain very well controlled, and she has Dilaudid at home for her cancer pain, so she did not want any pain meds on discharge. Metastatic breast cancer, sacral soft tissue mass s/p palliative RT ER/LA positive, HER2 negative with positive sentinel lymph nodes and mets to bone With history of chemotherapy and radiation. Last received palliative radiation and was started on Arimidex 01/2022, Ibrance 03/2022. - Continued on anastrozole/Ibrance, recently started on monthly denosumab Patient with significant pelvic pain, has been referred to pain management for nerve block/injections Hypertension BP today is 150/85. Continue metoprolol succinate 100 mg daily. Losartan temporarily held - Resume normal meds on discharge. Type 2 diabetes mellitus A1c was 5.6% this admission. 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 SSI conservative, goal BSG [id number]. CF 50, carb ratio 25. HLD: Continue rosuvastatin 5 mg daily Depression/anxiety Continue venlafaxine Clonazepam dose decreased to 1 mg p.o. twice daily at last admission (2) Type II diabetes mellitus: (3) Metastatic cancer: (4) History of bilateral breast cancer: (5) Breast cancer metastasized to bone: (6) Hyperlipidemia: Total Time Total Time Spent Total Time Spent (In Minutes): 34 Discharge Plan Discharge Items Patient Disposition: Home - Self-Care Reason For Visit: ?ACALCULOUS CHOLECYSTITIS Discharge Diagnosis: laparoscopic cholecystectomy Activity: Per Instructions section Lifting: No more than 10 pounds Bathing Comment: may shower; no soaking in tubs/pools Exercise/Sports: Wait until after follow-up appointment Driving/Machine Use: Resume 3 days after discharge Non-emergency contact: Surgeon Call non-emergency contact if: you have any medication questions, your symptoms worsen, your pain is not controlled, your pain is concerning for you, you have a fever, your temperature is above 101.5, your wound has increased redness, your wound has increased drainage and your wound pain has increased Follow-up/Referrals: Judie Ojeda CRNP [Primary Care Provider] - 08/26/22 8:00 am Alexandro Alvarez DO, FACS [Physician] - 08/27/22 9:15 am (Please call to schedule follow up in clinic within 2 weeks ) Diet: Carb Consistent or DM2 Addtl Attending Provider Instructions: Post-Surgical ~Discharge Instructions Activity Recommendations: - lifting limitation: (10 pounds for 2 weeks), - exercise/sex/sports limit: (nonstrenuous for 2 weeks), - driving or machine use limit: (none for 1 week), - Shower/bathe limit: (may shower beginning tomorrow) Diet: - Resume previous diet SPECIAL CARE INSTRUCTIONS: - May shower in 24 hours. Let water run over area and pat dry. - (ex. temperature higher than 101 degrees F, excessive bleeding or pain). MEDICATIONS: - Resume previous medications unless instructed otherwise by your surgeon. - Ibuprofen 600 mg every 6 hours with food - Percocet 1 every 4 hours, as needed for pain FOLLOW UP VISIT: - If not already scheduled, please call the office to schedule a two week follow-up appointment. Office number Pending Studies at Discharge: Yes Studies:: surgical pathology Stand-Alone Forms: My [facility], Opioid Pain Management, Smoking Cessation Medications and DC Order Prescriptions: Continued losartan 100 mg tablet 100 mg PO QAM Qty: 90 3RF omeprazole 20 mg capsule,delayed release(DR/EC) 20 mg PO QAM Qty: 90 3RF rosuvastatin 5 mg tablet 5 mg PO DAILY Qty: 90 3RF metoprolol succinate 100 mg tablet extended release 24 hr 100 mg PO QAM Qty: 90 3RF clonazepam 1 mg tablet 1 mg PO BID Qty: 60 1RF acetaminophen 325 mg tablet 650 mg PO Q6H PRN (Reason: pain, mild) anastrozole 1 mg tablet 1 mg PO QAM multivitamin with minerals Capsule 1 cap PO QAM cholecalciferol (vitamin D3) 50 mcg (2,000 unit) capsule 50 mcg PO QAM hydromorphone 8 mg tablet 4 mg PO Q4 PRN (Reason: Pain, Severe) Rx Instructions: 1/2 tablet dose gabapentin 600 mg tablet 600 mg PO QAM venlafaxine 150 mg capsule,extended release 24hr 150 mg PO QAM Ibrance 1 dose PO UD Rx Instructions: take daily for 3 weeks then off for 1 week magnesium 250 mg Tablet 250 mg PO DAILY calcium carbonate-vitamin D3 [Calcium 600 + D(3)] 600 mg-10 mcg (400 unit) Tablet 1 tab PO QAM Discharge Orders: Discharge Order (Routine); Ordered 08/14/22 Ordered By: Christian Bernstein/Other Patient Handouts: Cholecystectomy Admission Data Admit Date/Time: 08/12/22 16:48 Attending Provider: Christian Franklin Admit Provider: Phill Kate Primary Care Provider: Judie Ojeda Other Providers: Phill Kate ; Alexandro Alvarez Other Interventions: Discharge Summary Assessment (RN) Last Done: 08/14/22 11:49 Coding Level of Care Code D/C DAY MANAGEMENT >30 MINS Diagnoses Acute cholecystitis K81.0 Type II diabetes mellitus E11.9 Metastatic cancer C79.9 History of bilateral breast cancer Z85.3 Breast cancer metastasized to bone C50.919; C79.51 Hyperlipidemia E78.5
== END 2022-08-14 12:18 | disposition home or self-care (01) | DRG 418 ==
LOC: ED 10:42 → EDINP 16:48 → SUATTDRO 16:48 → EDINP 19:38 → 3E 22:31
DX: C79.51 Secondary malignant neoplasm of bone; F17.210 Nicotine dependence, cigarettes, uncomplicated; I10 Essential (primary) hypertension; K82.1 Hydrops of gallbladder; Z92.3 Personal history of irradiation; F41.8 Other specified anxiety disorders; K81.0 Acute cholecystitis; C50.919 Malignant neoplasm of unspecified site of unspecified female breast; E53.8 Deficiency of other specified B group vitamins; E11.9 Type 2 diabetes mellitus without complications

== ENCOUNTER 2022-12-01 21:53 | Inpatient (IN) ==
[~2022-12-01 21:53] MED LIST: ETOMIDATE 2 MG/ML 20 ML VIAL IV ONE; SUCCINYLCHOLINE CHLORIDE 20 MG/ML 10 ML VIAL IV ONE
[2022-12-01] MEDS ORDERED: RAPID SEQUENCE INDUCTION BAG ONE (22:02)
[2022-12-01] MEDS ORDERED: SODIUM CHLORIDE 0.9% 1000ML 1,000 ML IV SCH (22:15)
[2022-12-01] MEDS ORDERED: ALBUT/IPRATROP 3MG/0.5MG NEB 3 ML VIAL NEB ONE (22:17)
[2022-12-01] MEDS ORDERED: dexAMETHasone**PF** 10 MG/ML VIAL IV ONE (22:17)
[2022-12-01 22:35] LABS: Basophils # (auto) 0.01 K/uL (0-0.2); Basophils % (auto) 0.1 %; Hemoglobin 9.6 g/dl (12.0-16.0); Immature Granulocytes # (auto) 0.07 K/uL (0.00-0.02); Immature Granulocytes % (auto) 0.9 %; Lymphocytes # (auto) 0.96 K/uL (1.2-3.4); Lymphocytes % (auto) 12.1 %; Mean Corpuscular Hemoglobin 38.9 pg (25.0-34.0); Mean Corpuscular Hgb Conc 33.1 g/dL (32.0-36.0); Mean Corpuscular Volume 117.4 fL (80.0-100.0); Mean Platelet Volume 10.8 fL (9.4-12.3); Monocytes # (auto) 0.58 K/uL (0.24-0.82); Monocytes % (auto) 7.3 %; Neutrophils # (auto) 6.31 K/uL (1.4-6.5); Neutrophils % (auto) 79.6 %; Nucleated RBC # (auto) 0.33 K/uL (0-0); Nucleated RBC % (auto) 4.2 %; Platelet Count 163 K/uL (130-400); RDW Coefficient of Variation 15.5 % (11.5-14.5); RDW Standard Deviation 65.7 fL (36.4-46.3); Red Blood Count 2.47 M/uL (3.93-5.22); White Blood Count 7.93 K/ul (4.8-10.8)
[2022-12-01 22:41] LABS: Base Excess VBG -7.3 mEq/L; HCO3 VBG 23 mmol/L; Oxygen Saturation VBG < 60.0 %; PCO2 VBG 65 mmHg (38-50); PO2 VBG 32 mmHg; pH VBG 7.15 (7.36-7.41)
[2022-12-01 22:46] LABS: iSTAT Arterial Blood Gas HCO3 18 meg/L (19-24); iSTAT Arterial Blood Gas pCO2 36 mmHg (35-46); iSTAT Arterial Blood Gas pH 7.29 (7.35-7.45); iSTAT Arterial Blood Gas pO2 > 420 mmHg (80-95); iSTAT Carbon Dioxide 19 mmol/L (24-31)
[2022-12-01] MEDS ORDERED: NOREPINEPHRINE/D5W 4 MG/250 ML IV ONE (22:46)
[2022-12-01 22:47] LABS: iSTAT Creatinine 4.6 mg/dl (0.6-1.3); iSTAT Hemoglobin 9.9 g/dl (12.0-16.0); iSTAT Ionized Calcium 0.68 mmol/l (1.12-1.32)
[2022-12-01 22:47] LABS: iSTAT Creatinine 4.6 mg/dl (0.6-1.3); iSTAT Hemoglobin 9.5 g/dl (12.0-16.0); iSTAT Ionized Calcium 0.67 mmol/l (1.12-1.32)
[2022-12-01 22:49] LABS: Partial Thromboplastin Time 28.2 Seconds (21.0-31.0)
[2022-12-01] MEDS: NOREPINEPHRINE/D5W 4 MG/250 ML PLCT IV SCH (22:51)
[2022-12-01] MEDS ORDERED: INSULIN HUMAN REGULAR IV STA (22:56)
[2022-12-01] MEDS ORDERED: SODIUM BICARB 8.4% INJ 50 MEQ/50 ML SYR IV STA (22:56)
[2022-12-01] MEDS ORDERED: DEXTROSE 50% 50 ML SYRINGE IV STA (22:57)
[2022-12-01 23:01] LABS: Macrocytosis Present; Polychromasia 1+
[2022-12-01] MEDS ORDERED: NovoLIN-R INSULIN PER UNIT CHARGE IV STA (23:05)
[2022-12-01 23:09] LABS: Albumin Level 3.7 gm/dl (3.4-5.0); BUN Creatinine Ratio 11.4 (10-20); Bilirubin Direct 0.3 mg/dl (0-0.2); Bilirubin,Total 0.9 mg/dl (0.2-1.0); Calcium 5.8 mg/dl (8.5-10.1); Creatinine Clr Calc Pharmacy 13.3 ml/min; Est GFR (African American) 11.6 ml/min; Magnesium 1.3 mg/dl (1.7-2.4); Total Protein 7.3 gm/dl (6.0-8.3); Troponin I High Sensitivity 1727.4 pg/ml (0-14)
[2022-12-01] MEDS ORDERED: CEFEPIME 2,000 MG/20 ML VIAL IV STA (23:15)
[2022-12-01] MEDS ORDERED: OPTIRAY 320 500ml IV ONE (23:22)
--- NOTE | 2022-12-01 23:22 | Emergency Department Note ---
Impression & Plan Acute respiratory failure with hypoxia, Right lower lobe pneumonia, Acute renal failure, Acute hyperkalemia, Acute hypotension, Hypocalcemia, Lactic acidosis, Rhabdomyolysis, Elevated troponin ED Provider Note Name: ELSY DEVRIES Age: 72 Sex: F Arrives Via: Ambulance Informant: EMS & Family, Outpatient Records ED Provider: Yung Bermeo MD Chief Complaint: Illness Impression: As per impressions above Medical Decision Makin-year-old female with a history of type 2 diabetes, metastatic breast cancer, hypertension and previous acute renal failure arrives for evaluation of worsening illness. Per family ill for the last few days rapidly decompensating throughout the day today after apparently laying on the floor all night last night. On arrival patient with minimal respiratory drive she is blue mottled not moving much air and clearly quite ill-appearing. She is moved immediately to trauma bay where she was intubated without much difficulty. Severe diffi culty in oxygenating patient. O2 sats staying in the 60s 70s with poor BP until pressors begun. She received several small doses of IV push epinephrine prior to Levophed starting. [id number] labs show acute renal failure with modest hyperkalemia. She was given further fluids, bicarb, insulin, calcium. Septic work-up was initiated and she was given 2 gm IV Cefepime. Patient was given 2 L IV normal saline here in addition to the liter fluid she had received by EMS. Patient is in acute renal failure so after second liter here I felt she had been well enough hydrated that will defer further fluids to ICU. Labs returned elevated elevated lactic acid moderately elevated procalcitonin, acute renal failure, moderate hyperkalemia, hypocalcemia, mild anemia, acidosis low magnesium, moderate LFT elevation, creatinine elevation, elevated troponin consistent with her multiorgan failure. Patient has acute respiratory failure in the setting of recent surgery a few months ago as well as metastatic cancer. This was discussed with the critical care team and they requested a CT angiogram of the chest be done with IV dye. They are aware of the acute renal feel and wish to proceed with PE scan. CT imaging of the chest reveals a right sided pneumonia with a right effusion. No evidence of intracranial hemorrhage cervical fracture. I suspect that her primary issue is probably been that she has been dealing with pneumonia. This in the setting of not eating and drinking well the last few weeks pushed her back into acute renal failure. And then laying on the floor last night likely resulted in the acute rhabdomyolysis. This has all set off her elevated LFTs as well as significant elevated troponin which is likely both rhabdo and cardiac related secondary to hypotension, hypoxia and acute renal failure. I will note extensive bedside management of patient throughout much of her stay due to persistent hypotensive, hypoxia. Prior Medical Record and Triage/Nursing Notes reviewed by Me Additional history obtained from chart, family, outpatient PCP and oncology notes Differentials:Infection, dehydration, metabolic abnormality, hypo/hypergl ycemia, electrolyte disturbance, anemia, hypoxia, cardiac sources, intracerebral event, toxicologic, neurologic, as well as other pathologies. Vital Signs: reviewed and remarkable for hypotension, hypoxia Interventions: 1 L normal saline IV x2 (this is in addition to the 1 L normal saline IV by EMS), cefepime 2 g IV, etomidate IV, succinylcholine IV, propofol IV, Levophed drip IV, epinephrine 0.5 mg IV x3 in push dose. Labs:Reviewed and remarkable for extensive lab abnormalities see MDM for discussion Imaging: As per my interpretation 1 view chest x-ray was obtained which shows moderately enlarged heart with atelectasis/infiltrate throughout. ET tube is in place there is no pneumothorax. CT of the head and cervical spine as per radiology no acute findings. CT a of the chest as per radiology right upper lower lung infiltrates with effusion of the right lower lung amongst multiple other findings see chart EKG: Cardiac/Tele Monitoring: Cardiac Monitoring: An Order was placed for continuous cardiac monitoring. The monitor shows a rate of 70 with a normal sinus rhythm. Consults:Dr Mykel NO Hospitalist Devante NO CCM Plan: Disposition:Hospitalization. Condition: Critical History of Present Illness:72-year-old female arrives for evaluation of altered mental status. Per family patient has been tired and not quite herself for the last few days. She seemed a bit agitated last night. And this morning her sister found her sleeping on the floor next to her recliner using some boots as a pillow. Although patient just has not seemed herself and then over the last 3 to 4 hours worsening respiratory issues. Sister said she just did not look quite with a purple discoloration and eventually called 911. EMS arrived to find the patient hypoxic altered with poor respiratory status. She was placed on nonrebreather and brought to the ER for further evaluation. She received some IV fluids prior to arrival. Patient without significant other recent history though reportedly does have metastatic breast cancer as well as recent cholecystectomy. Per family patient has been eating well for the last few weeks. Further review of systems and history is unable to be obtained due to patient's altered mental status Vitals:Blood Pressure: 70/40, Pulse 58, RR 8, T 37.4C, O2 60% on NRB Physical Exam: GENERAL: Patient is severely unwell appearing. Blue/mottled, minimally responsive EYES: No scleral icterus, unremarkable pupils. ENT: Mucous membranes dry, no nasal congestion. NECK: No masses appreciated, nomeningismus, trachea is midline. RESPIRATORY: Minimal respiratory effort. Diffuse crackles and tight lung sounds noted. CARDIOVASCULAR: Regular rate and rhythm.No murmurs, rubs, gallops appreciated. GASTROINTESTINAL: Abdomen soft, non-tender, no peritonitis.Bowel sounds positive.No masses appreciated. BACK: No midline tenderness, no CVA tenderness EXTREMITIES: Mottled extremities with poor pulses appreciated with very poor cap refill no edema NEUROLOGIC: Minimally responsive to verbal or painful stimuli. Weakly will move arms and move toes to command. SKIN: Mottled GCS: 6 ED Course: Times/Reassessments: Extensive bedside management throughout much of patient's stay over several hours. Eventual stabilization of blood pressure, oxygenation. Patient with some neurologic movement no started on propofol for comfort. Procedures: Endotracheal Intubation Indication: Respiratory Failure The patient was being bagged by respiratory with BVM. Suction, airway equipment, RSI drugs, respiratory equipment, and appropriate personnel were prepared prior to the initiation of the procedure. A time out was taken. Induction was performed with Succinylcholine & Etomidate. After observing the clinical benefit of the medications, the airway was easily visualized utilizing a Glidescope #3 Blade. A 7.5 size ETT tube was placed atraumatically to 24 cm using standard technique. The cuff inflated without signs of malfunction. There were bilateral breath sounds, positive colormetric change, no gastric sounds, a good capnography waveform, and post procedure pulse oximetry was 70%. Post intubation sedation and paralysis was administered using propofol. There were no complications. Critical Care: I have personally spent 120 minutes of critical care time in the direct management of this patient. Acute respiratory failure with hypoxia/hypotension requiring intubation, resuscitation and extensive medical management. This was a life/limb threatening event. This 120 minutes is in excess of all separately billable procedures. 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 Osteoarthritis Pain of right lower extremity Type II diabetes mellitus Vitamin D deficiency Surgical History (Updated 08/14/22 @ 08:55 by Priyanka Jacques RN) H/O tubal ligation History of appendectomy History of section History of colonoscopy History of esophagogastroduodenoscopy (EGD) History of left breast biopsy malignant History of lumpectomy of both breasts x2 History of right breast biopsy malignant History of tooth extraction History of wisdom tooth extraction Hx laparoscopic cholecystectomy (08/13/22) Laparoscopic Cholecystectomy - Alexandro Alvarez DO, FACS Status post correction of deviated nasal septum Family History Grandmother (Maternal) AAA (abdominal aortic aneurysm) Family history of diabetes mellitus Mother No problems noted. 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 Children do You have: 1 Feels Safe at Home: Yes Seatbelt Use: always Sunscreen Use: Yes Assistive Devices: None Allergies Allergies Allergy/AdvReac Type Severity Reaction Status Date / Time fentanyl AdvReac Severe Hallucinati Verified 08/26/22 08:14 on Home Meds Home Medications Medication Instructions Recorded Confirmed cholecalciferol (vitamin D3) 50 50 mcg PO QAM 01/06/22 12/01/22 mcg (2,000 unit) capsule acetaminophen 325 mg tablet 650 mg PO Q6H PRN pain, mild 02/08/22 12/01/22 anastrozole 1 mg tablet 1 mg PO QAM 02/08/22 12/01/22 multivitamin with minerals 1 cap PO QAM 02/08/22 12/01/22 Ibrance 1 dose PO UD 08/12/22 08/26/22 calcium carbonate 600 mg-vitamin 1 tab PO QAM 08/12/22 12/01/22 D3 10 mcg (400 unit) tablet (Calcium 600 + D(3)) gabapentin 600 mg tablet 600 mg PO QAM 08/12/22 12/01/22 hydromorphone 8 mg tablet 4 mg PO Q4 PRN Pain, Severe 08/12/22 12/01/22 magnesium 250 mg tablet 250 mg PO DAILY 08/12/22 12/01/22 venlafaxine 75 mg capsule,extended 75 mg PO QAM 12/01/22 12/01/22 release 24 hr Previous Rx's Medication Instructions Recorded losartan 100 mg tablet 100 mg PO QAM #90 tabs 05/30/22 metoprolol succinate 100 mg 100 mg PO QAM #90 tabs 07/23/22 tablet,extended release 24 hr omeprazole 20 mg capsule,delayed 20 mg PO QAM #90 caps 07/23/22 release venlafaxine 150 mg 150 mg PO QAM #90 caps 09/04/22 capsule,extended release 24 hr rosuvastatin 5 mg tablet 5 mg PO DAILY #90 tabs 10/03/22 clonazepam 1 mg tablet 1 mg PO TID #90 tabs 10/22/22 Results & Data (ED) Vital Signs Vital Signs - 24 hr 12/01/22 22:06 12/01/22 23:14 12/01/22 23:26 Temperature 37.4 C 37.1 C Temperature Source Rectal Rectal Pulse Rate 68 Pulse Rate [Apical] 67 Pulse Rate from SpO2 Sensor Respiratory Rate 12 22 Respiratory Effort / Characteristics Accessory Muscle Use Mechanically Ventilated Blood Pressure 82/63 L Blood Pressure [Right Arm] 86/71 L Blood Pressure Mean 69 Blood Pressure Mean [Right Arm] 76 Blood Pressure Position [Right Arm] Lying Pulse Oximetry 66 L 80 L 93 Oxygen Delivery Method Room Air Mechanical Vent Non-rebreather Mechanical Vent Oxygen Flow Rate 15 Fraction of Inspired Oxygen Sepsis Recent Fever Within 48 Hours No Sepsis New/Unexplained Change in Mental Status Yes Sepsis Action Taken by Nursing Physician Notified End-Tidal CO2 Oxygen Flow Rate - Titration 50 Pulse Oximetry Post Tiitration 92 12/01/22 23:00 12/01/22 23:01 12/01/22 23:01 Temperature Temperature Source Pulse Rate 90 88 Pulse Rate [Apical] Pulse Rate from SpO2 Sensor Respiratory Rate 22 22 Respiratory Effort / Characteristics Blood Pressure 113/79 Blood Pressure [Right Arm] Blood Pressure Mean 90 Blood Pressure Mean [Right Arm] Blood Pressure Position [Right Arm] Pulse Oximetry Oxygen Delivery Method Oxygen Flow Rate Fraction of Inspired Oxygen Sepsis Recent Fever Within 48 Hours Sepsis New/Unexplained Change in Mental Status Sepsis Action Taken by Nursing End-Tidal CO2 38 38 Oxygen Flow Rate - Titration Pulse Oximetry Post Tiitration 12/01/22 23:24 12/01/22 23:27 12/01/22 23:27 Temperature Temperature Source Pulse Rate 67 Pulse Rate [Apical] Pulse Rate from SpO2 Sensor 67 66 Respiratory Rate 22 Respiratory Effort / Characteristics Blood Pressure 86/71 L Blood Pressure [Right Arm] Blood Pressure Mean 76 Blood Pressure Mean [Right Arm] Blood Pressure Position [Right Arm] Pulse Oximetry 92 91 Oxygen Delivery Method Mechanical Vent Mechanical Vent Oxygen Flow Rate Fraction of Inspired Oxygen Sepsis Recent Fever Within 48 Hours Sepsis New/Unexplained Change in Mental Status Sepsis Action Taken by Nursing End-Tidal CO2 38 Oxygen Flow Rate - Titration Pulse Oximetry Post Tiitration 12/01/22 23:30 12/01/22 23:30 12/01/22 23:36 Temperature Temperature Source Pulse Rate 64 62 Pulse Rate [Apical] Pulse Rate from SpO2 Sensor Respiratory Rate 22 24 Respiratory Effort / Characteristics Blood Pressure 74/56 L Blood Pressure [Right Arm] Blood Pressure Mean 62 Blood Pressure Mean [Right Arm] Blood Pressure Position [Right Arm] Pulse Oximetry Oxygen Delivery Method Oxygen Flow Rate Fraction of Inspired Oxygen Sepsis Recent Fever Within 48 Hours Sepsis New/Unexplained Change in Mental Status Sepsis Action Taken by Nursing End-Tidal CO2 38 44 Oxygen Flow Rate - Titration Pulse Oximetry Post Tiitration 12/01/22 23:36 12/01/22 23:40 12/01/22 23:41 Temperature Temperature Source Pulse Rate 68 Pulse Rate [Apical] Pulse Rate from SpO2 Sensor 156 H Respiratory Rate 22 Respiratory Effort / Characteristics Blood Pressure 94/66 L 142/107 H Blood Pressure [Right Arm] Blood Pressure Mean 75 118 Blood Pressure Mean [Right Arm] Blood Pressure Position [Right Arm] Pulse Oximetry 95 Oxygen Delivery Method Mechanical Vent Oxygen Flow Rate Fraction of Inspired Oxygen 100 Sepsis Recent Fever Within 48 Hours Sepsis New/Unexplained Change in Mental Status Sepsis Action Taken by Nursing End-Tidal CO2 39 Oxygen Flow Rate - Titration Pulse Oximetry Post Tiitration 12/01/22 23:41 12/01/22 23:50 12/01/22 23:51 Temperature Temperature Source Pulse Rate 74 74 73 Pulse Rate [Apical] Pulse Rate from SpO2 Sensor 74 73 Respiratory Rate 22 16 23 Respiratory Effort / Characteristics Blood Pressure Blood Pressure [Right Arm] Blood Pressure Mean Blood Pressure Mean [Right Arm] Blood Pressure Position [Right Arm] Pulse Oximetry 100 100 Oxygen Delivery Method Mechanical Vent Mechanical Vent Oxygen Flow Rate Fraction of Inspired Oxygen Sepsis Recent Fever Within 48 Hours Sepsis New/Unexplained Change in Mental Status Sepsis Action Taken by Nursing End-Tidal CO2 38 47 45 Oxygen Flow Rate - Titration Pulse Oximetry Post Tiitration 12/01/22 23:51 12/02/22 00:00 12/02/22 00:00 Temperature Temperature Source Pulse Rate 71 Pulse Rate [Apical] Pulse Rate from SpO2 Sensor 71 Respiratory Rate 23 Respiratory Effort / Characteristics Blood Pressure 132/88 166/96 H Blood Pressure [Right Arm] Blood Pressure Mean 102 119 Blood Pressure Mean [Right Arm] Blood Pressure Position [Right Arm] Pulse Oximetry 100 Oxygen Delivery Method Mechanical Vent Oxygen Flow Rate Fraction of Inspired Oxygen Sepsis Recent Fever Within 48 Hours Sepsis New/Unexplained Change in Mental Status Sepsis Action Taken by Nursing End-Tidal CO2 46 Oxygen Flow Rate - Titration Pulse Oximetry Post Tiitration 12/02/22 00:10 12/02/22 00:11 12/02/22 00:11 Temperature Temperature Source Pulse Rate 70 70 70 Pulse Rate [Apical] Pulse Rate from SpO2 Sensor 71 70 Respiratory Rate 23 21 Respiratory Effort / Characteristics Blood Pressure 146/100 H Blood Pressure [Right Arm] Blood Pressure Mean 115 Blood Pressure Mean [Right Arm] Blood Pressure Position [Right Arm] Pulse Oximetry 100 100 100 Oxygen Delivery Method Mechanical Vent Mechanical Vent Oxygen Flow Rate Fraction of Inspired Oxygen Sepsis Recent Fever Within 48 Hours Sepsis New/Unexplained Change in Mental Status Sepsis Action Taken by Nursing End-Tidal CO2 40 41 Oxygen Flow Rate - Titration Pulse Oximetry Post Tiitration 12/01/22 22:25 12/01/22 22:30 12/01/22 22:35 Temperature Temperature Source Pulse Rate 96 H Pulse Rate [Apical] Pulse Rate from SpO2 Sensor Respiratory Rate 22 22 22 Respiratory Effort / Characteristics Mechanically Ventilated Blood Pressure Blood Pressure [Right Arm] Blood Pressure Mean Blood Pressure Mean [Right Arm] Blood Pressure Position [Right Arm] Pulse Oximetry 100 100 Oxygen Delivery Method Mechanical Vent Oxygen Flow Rate Fraction of Inspired Oxygen 100 50 50 Sepsis Recent Fever Within 48 Hours Sepsis New/Unexplained Change in Mental Status Sepsis Action Taken by Nursing End-Tidal CO2 Oxygen Flow Rate - Titration Pulse Oximetry Post Tiitration 12/02/22 00:20 12/02/22 00:20 12/02/22 00:30 Temperature Temperature Source Pulse Rate 71 69 Pulse Rate [Apical] Pulse Rate from SpO2 Sensor 65 Respiratory Rate 22 Respiratory Effort / Characteristics Blood Pressure 163/108 H 158/106 H Blood Pressure [Right Arm] Blood Pressure Mean 126 123 Blood Pressure Mean [Right Arm] Blood Pressure Position [Right Arm] Pulse Oximetry 100 Oxygen Delivery Method Mechanical Vent Oxygen Flow Rate Fraction of Inspired Oxygen Sepsis Recent Fever Within 48 Hours Sepsis New/Unexplained Change in Mental Status Sepsis Action Taken by Nursing End-Tidal CO2 40 Oxygen Flow Rate - Titration Pulse Oximetry Post Tiitration 12/02/22 00:30 Temperature Temperature Source Pulse Rate 72 Pulse Rate [Apical] Pulse Rate from SpO2 Sensor 68 Respiratory Rate 23 Respiratory Effort / Characteristics Blood Pressure Blood Pressure [Right Arm] Blood Pressure Mean Blood Pressure Mean [Right Arm] Blood Pressure Position [Right Arm] Pulse Oximetry 100 Oxygen Delivery Method Mechanical Vent Oxygen Flow Rate Fraction of Inspired Oxygen Sepsis Recent Fever Within 48 Hours Sepsis New/Unexplained Change in Mental Status Sepsis Action Taken by Nursing End-Tidal CO2 39 Oxygen Flow Rate - Titration Pulse Oximetry Post Tiitration Laboratory Data 12/01/22 22:21 12/01/22 22:21 Lab Results 12/01/22 12/01/22 12/01/22 Range/Units 22:21 22:21 22:21 WBC 7.93 (4.8-10.8) K/ul RBC 2.47 L (3.93-5.22) M/uL Hgb 9.6 L (12.0-16.0) g/dl POC Hgb (12.0-16.0) g/dl Hct 29.0 L (34.1-44.9) % POC Hct (37-47) % MCV 117.4 H (80.0-100.0) fL MCH 38.9 H (25.0-34.0) pg MCHC 33.1 (32.0-36.0) g/dL RDW Std Deviation 65.7 H (36.4-46.3) fL RDW Coeff of Cheri 15.5 H (11.5-14.5) % Plt Count 163 (130-400) K/uL MPV 10.8 (9.4-12.3) fL Immature Gran % (Auto) 0.9 % Neut % (Auto) 79.6 % Lymph % (Auto) 12.1 % Marin % (Auto) 7.3 % Eos % (Auto) 0.0 % Baso % (Auto) 0.1 % Neut # (Auto) 6.31 (1.4-6.5) K/uL Lymph # (Auto) 0.96 L (1.2-3.4) K/uL Marin # (Auto) 0.58 (0.24-0.82) K/uL Eos # (Auto) 0.00 (0-0.50) K/uL Baso # (Auto) 0.01 (0-0.2) K/uL Immature Gran # (Auto) 0.07 H (0.00-0.02) K/uL Absolute Nucleated RBC 0.33 H (0-0) K/uL Nucleated RBC % (auto) 4.2 % Polychromasia 1+ Macrocytosis Present APTT 28.2 (21.0-31.0) Seconds PTT Ratio 1.0 POC pH (7.35-7.45) POC pCO2 (35-46) mmHg POC pO2 (80-95) mmHg POC HCO3 (19-24) martinez/L POC Base Excess (-9-1.8) martinez/L POC ABG O2 Sat (90-95) % VBG pH (7.36-7.41) VBG pCO2 (38-50) mmHg VBG pO2 mmHg VBG HCO3 mmol/L VBG O2 Saturation % VBG Base Excess mEq/L POC Sodium (135-144) mmol/L Sodium 142 (136-145) mmol/L POC Potassium (3.3-5.0) mmol/L Potassium 6.0 H (3.5-5.1) mmol/L POC Chloride (101-112) mmol/L Chloride 104 (98-107) mmol/L Carbon Dioxide 22 (21-32) mmol/L POC Total CO2 (24-31) mmol/L Anion Gap 16 H (3-11) POC Anion Gap (16-25) mmol/L POC BUN (7-18) mg/dl BUN 48 H (6-23) mg/dl Creatinine 4.21 H (0.6-1.2) mg/dl POC Creatinine (0.6-1.3) mg/dl Est Cr Clr Drug Dosing 13.3 ml/min Est GFR ( Amer) 11.6 ml/min Est GFR (Non-Af Amer) 10.0 ml/min BUN/Creatinine Ratio 11.4 (10-20) Glucose 88 (70-99(Fasting)) mg/dl POC Glucose (other) (70-99) mg/dl Lactate (0.4-2.0) mmol/L Calcium 5.8 L* (8.5-10.1) mg/dl POC Ioniz Calcium Kimberly (1.12-1.32) mmol/l Magnesium 1.3 L (1.7-2.4) mg/dl Total Bilirubin 0.9 (0.2-1.0) mg/dl Direct Bilirubin 0.3 H (0-0.2) mg/dl AST 612 H (13-39) U/L ALT 206 H (7-52) U/L Alkaline Phosphatase 123 H (34-104) U/L Total Creatine Kinase 881 H (26-192) U/L Troponin I High Sens 1727.4 H* (0-14) pg/ml Total Protein 7.3 (6.0-8.3) gm/dl Albumin 3.7 (3.4-5.0) gm/dl Procalcitonin (0-0.5) ng/ml Urine Color Urine Appearance (Clear) Urine pH (4.5-7.5) Ur Specific Callaway (1.000-1.030) Urine Protein (Negative) Urine Glucose (UA) (Negative) Urine Ketones (Negative) Urine Blood (Negative) Urine Nitrite (Negative) Urine Bilirubin (Negative) Urine Urobilinogen (Negative) Ur Leukocyte Esterase (Negative) Urine WBC (Auto) (0-5) /hpf Urine RBC (Auto) (0-4) /hpf U Hyaline Cast (Auto) (0-5) /lpf U Epithel Cells (Auto) (0-5) /lpf Urine Bacteria (Auto) (Negative) Urine Crystals Uric Acid Crystals (None Prsent) SARS-CoV-2 (PCR) (Negative) Influenza Type A (PCR) (Neg) Influenza Type B (PCR) (Neg) RSV (RT-PCR) (Neg) 12/01/22 12/01/22 12/01/22 Range/Units 22:21 22:21 22:21 WBC (4.8-10.8) K/ul RBC (3.93-5.22) M/uL Hgb (12.0-16.0) g/dl POC Hgb (12.0-16.0) g/dl Hct (34.1-44.9) % POC Hct (37-47) % MCV (80.0-100.0) fL MCH (25.0-34.0) pg MCHC (32.0-36.0) g/dL RDW Std Deviation (36.4-46.3) fL RDW Coeff of Cheri (11.5-14.5) % Plt Count (130-400) K/uL MPV (9.4-12.3) fL Immature Gran % (Auto) % Neut % (Auto) % Lymph % (Auto) % Marin % (Auto) % Eos % (Auto) % Baso % (Auto) % Neut # (Auto) (1.4-6.5) K/uL Lymph # (Auto) (1.2-3.4) K/uL Marin # (Auto) (0.24-0.82) K/uL Eos # (Auto) (0-0.50) K/uL Baso # (Auto) (0-0.2) K/uL Immature Gran # (Auto) (0.00-0.02) K/uL Absolute Nucleated RBC (0-0) K/uL Nucleated RBC % (auto) % Polychromasia Macrocytosis APTT (21.0-31.0) Seconds PTT Ratio POC pH (7.35-7.45) POC pCO2 (35-46) mmHg POC pO2 (80-95) mmHg POC HCO3 (19-24) martinez/L POC Base Excess (-9-1.8) martinez/L POC ABG O2 Sat (90-95) % VBG pH 7.15 L (7.36-7.41) VBG pCO2 65 H (38-50) mmHg VBG pO2 32 mmHg VBG HCO3 23 mmol/L VBG O2 Saturation < 60.0 % VBG Base Excess -7.3 mEq/L POC Sodium (135-144) mmol/L Sodium (136-145) mmol/L POC Potassium (3.3-5.0) mmol/L Potassium (3.5-5.1) mmol/L POC Chloride (101-112) mmol/L Chloride (98-107) mmol/L Carbon Dioxide (21-32) mmol/L POC Total CO2 (24-31) mmol/L Anion Gap (3-11) POC Anion Gap (16-25) mmol/L POC BUN (7-18) mg/dl BUN (6-23) mg/dl Creatinine (0.6-1.2) mg/dl POC Creatinine (0.6-1.3) mg/dl Est Cr Clr Drug Dosing ml/min Est GFR ( Amer) ml/min Est GFR (Non-Af Amer) ml/min BUN/Creatinine Ratio (10-20) Glucose (70-99(Fasting)) mg/dl POC Glucose (other) (70-99) mg/dl Lactate 3.4 H* (0.4-2.0) mmol/L Calcium (8.5-10.1) mg/dl POC Ioniz Calcium Kimberly (1.12-1.32) mmol/l Magnesium (1.7-2.4) mg/dl Total Bilirubin (0.2-1.0) mg/dl Direct Bilirubin (0-0.2) mg/dl AST (13-39) U/L ALT (7-52) U/L Alkaline Phosphatase (34-104) U/L Total Creatine Kinase (26-192) U/L Troponin I High Sens (0-14) pg/ml Total Protein (6.0-8.3) gm/dl Albumin (3.4-5.0) gm/dl Procalcitonin 4.29 H (0-0.5) ng/ml Urine Color Urine Appearance (Clear) Urine pH (4.5-7.5) Ur Specific Callaway (1.000-1.030) Urine Protein (Negative) Urine Glucose (UA) (Negative) Urine Ketones (Negative) Urine Blood (Negative) Urine Nitrite (Negative) Urine Bilirubin (Negative) Urine Urobilinogen (Negative) Ur Leukocyte Esterase (Negative) Urine WBC (Auto) (0-5) /hpf Urine RBC (Auto) (0-4) /hpf U Hyaline Cast (Auto) (0-5) /lpf U Epithel Cells (Auto) (0-5) /lpf Urine Bacteria (Auto) (Negative) Urine Crystals Uric Acid Crystals (None Prsent) SARS-CoV-2 (PCR) (Negative) Influenza Type A (PCR) (Neg) Influenza Type B (PCR) (Neg) RSV (RT-PCR) (Neg) 12/01/22 12/01/22 12/01/22 Range/Units 22:27 22:32 22:33 WBC (4.8-10.8) K/ul RBC (3.93-5.22) M/uL Hgb (12.0-16.0) g/dl POC Hgb 9.9 L 9.5 L (12.0-16.0) g/dl Hct (34.1-44.9) % POC Hct 29 L 28 L (37-47) % MCV (80.0-100.0) fL MCH (25.0-34.0) pg MCHC (32.0-36.0) g/dL RDW Std Deviation (36.4-46.3) fL RDW Coeff of Cheri (11.5-14.5) % Plt Count (130-400) K/uL MPV (9.4-12.3) fL Immature Gran % (Auto) % Neut % (Auto) % Lymph % (Auto) % Marin % (Auto) % Eos % (Auto) % Baso % (Auto) % Neut # (Auto) (1.4-6.5) K/uL Lymph # (Auto) (1.2-3.4) K/uL Marin # (Auto) (0.24-0.82) K/uL Eos # (Auto) (0-0.50) K/uL Baso # (Auto) (0-0.2) K/uL Immature Gran # (Auto) (0.00-0.02) K/uL Absolute Nucleated RBC (0-0) K/uL Nucleated RBC % (auto) % Polychromasia Macrocytosis APTT (21.0-31.0) Seconds PTT Ratio POC pH 7.29 L (7.35-7.45) POC pCO2 36 (35-46) mmHg POC pO2 > 420 H (80-95) mmHg POC HCO3 18 L (19-24) martinez/L POC Base Excess -9.0 (-9-1.8) martinez/L POC ABG O2 Sat 100.0 H (90-95) % VBG pH (7.36-7.41) VBG pCO2 (38-50) mmHg VBG pO2 mmHg VBG HCO3 mmol/L VBG O2 Saturation % VBG Base Excess mEq/L POC Sodium 141 141 (135-144) mmol/L Sodium (136-145) mmol/L POC Potassium 6.0 H 6.0 H (3.3-5.0) mmol/L Potassium (3.5-5.1) mmol/L POC Chloride 107 107 (101-112) mmol/L Chloride (98-107) mmol/L Carbon Dioxide (21-32) mmol/L POC Total CO2 25 19 L 27 (24-31) mmol/L Anion Gap (3-11) POC Anion Gap 17.0 14.0 L (16-25) mmol/L POC BUN 55 H 56 H (7-18) mg/dl BUN (6-23) mg/dl Creatinine (0.6-1.2) mg/dl POC Creatinine 4.6 H* 4.6 H* (0.6-1.3) mg/dl Est Cr Clr Drug Dosing ml/min Est GFR ( Amer) ml/min Est GFR (Non-Af Amer) ml/min BUN/Creatinine Ratio (10-20) Glucose (70-99(Fasting)) mg/dl POC Glucose (other) 87 87 (70-99) mg/dl Lactate (0.4-2.0) mmol/L Calcium (8.5-10.1) mg/dl POC Ioniz Calcium Kimberly 0.68 L* 0.67 L* (1.12-1.32) mmol/l Magnesium (1.7-2.4) mg/dl Total Bilirubin (0.2-1.0) mg/dl Direct Bilirubin (0-0.2) mg/dl AST (13-39) U/L ALT (7-52) U/L Alkaline Phosphatase (34-104) U/L Total Creatine Kinase (26-192) U/L Troponin I High Sens (0-14) pg/ml Total Protein (6.0-8.3) gm/dl Albumin (3.4-5.0) gm/dl Procalcitonin (0-0.5) ng/ml Urine Color Urine Appearance (Clear) Urine pH (4.5-7.5) Ur Specific Callaway (1.000-1.030) Urine Protein (Negative) Urine Glucose (UA) (Negative) Urine Ketones (Negative) Urine Blood (Negative) Urine Nitrite (Negative) Urine Bilirubin (Negative) Urine Urobilinogen (Negative) Ur Leukocyte Esterase (Negative) Urine WBC (Auto) (0-5) /hpf Urine RBC (Auto) (0-4) /hpf U Hyaline Cast (Auto) (0-5) /lpf U Epithel Cells (Auto) (0-5) /lpf Urine Bacteria (Auto) (Negative) Urine Crystals Uric Acid Crystals (None Prsent) SARS-CoV-2 (PCR) (Negative) Influenza Type A (PCR) (Neg) Influenza Type B (PCR) (Neg) RSV (RT-PCR) (Neg) 12/01/22 12/01/22 Range/Units 22:58 Unknown WBC (4.8-10.8) K/ul RBC (3.93-5.22) M/uL Hgb (12.0-16.0) g/dl POC Hgb (12.0-16.0) g/dl Hct (34.1-44.9) % POC Hct (37-47) % MCV (80.0-100.0) fL MCH (25.0-34.0) pg MCHC (32.0-36.0) g/dL RDW Std Deviation (36.4-46.3) fL RDW Coeff of Cheri (11.5-14.5) % Plt Count (130-400) K/uL MPV (9.4-12.3) fL Immature Gran % (Auto) % Neut % (Auto) % Lymph % (Auto) % Marin % (Auto) % Eos % (Auto) % Baso % (Auto) % Neut # (Auto) (1.4-6.5) K/uL Lymph # (Auto) (1.2-3.4) K/uL Marin # (Auto) (0.24-0.82) K/uL Eos # (Auto) (0-0.50) K/uL Baso # (Auto) (0-0.2) K/uL Immature Gran # (Auto) (0.00-0.02) K/uL Absolute Nucleated RBC (0-0) K/uL Nucleated RBC % (auto) % Polychromasia Macrocytosis APTT (21.0-31.0) Seconds PTT Ratio POC pH (7.35-7.45) POC pCO2 (35-46) mmHg POC pO2 (80-95) mmHg POC HCO3 (19-24) martinez/L POC Base Excess (-9-1.8) martinez/L POC ABG O2 Sat (90-95) % VBG pH (7.36-7.41) VBG pCO2 (38-50) mmHg VBG pO2 mmHg VBG HCO3 mmol/L VBG O2 Saturation % VBG Base Excess mEq/L POC Sodium (135-144) mmol/L Sodium (136-145) mmol/L POC Potassium (3.3-5.0) mmol/L Potassium (3.5-5.1) mmol/L POC Chloride (101-112) mmol/L Chloride (98-107) mmol/L Carbon Dioxide (21-32) mmol/L POC Total CO2 (24-31) mmol/L Anion Gap (3-11) POC Anion Gap (16-25) mmol/L POC BUN (7-18) mg/dl BUN (6-23) mg/dl Creatinine (0.6-1.2) mg/dl POC Creatinine (0.6-1.3) mg/dl Est Cr Clr Drug Dosing ml/min Est GFR ( Amer) ml/min Est GFR (Non-Af Amer) ml/min BUN/Creatinine Ratio (10-20) Glucose (70-99(Fasting)) mg/dl POC Glucose (other) (70-99) mg/dl Lactate (0.4-2.0) mmol/L Calcium (8.5-10.1) mg/dl POC Ioniz Calcium Kimberly (1.12-1.32) mmol/l Magnesium (1.7-2.4) mg/dl Total Bilirubin (0.2-1.0) mg/dl Direct Bilirubin (0-0.2) mg/dl AST (13-39) U/L ALT (7-52) U/L Alkaline Phosphatase (34-104) U/L Total Creatine Kinase (26-192) U/L Troponin I High Sens (0-14) pg/ml Total Protein (6.0-8.3) gm/dl Albumin (3.4-5.0) gm/dl Procalcitonin (0-0.5) ng/ml Urine Color Dark Yellow Urine Appearance Cloudy A (Clear) Urine pH 5.5 (4.5-7.5) Ur Specific Callaway 1.017 (1.000-1.030) Urine Protein 3+ H (Negative) Urine Glucose (UA) Negative (Negative) Urine Ketones Negative (Negative) Urine Blood Trace H (Negative) Urine Nitrite Negative (Negative) Urine Bilirubin Negative (Negative) Urine Urobilinogen Negative (Negative) Ur Leukocyte Esterase Negative (Negative) Urine WBC (Auto) 1-5 (0-5) /hpf Urine RBC (Auto) 0-4 (0-4) /hpf U Hyaline Cast (Auto) 1-5 (0-5) /lpf U Epithel Cells (Auto) >30 H (0-5) /lpf Urine Bacteria (Auto) Negative (Negative) Urine Crystals Not Reportable Uric Acid Crystals Present A (None Prsent) SARS-CoV-2 (PCR) NEGATIVE (Negative) Influenza Type A (PCR) Negative (Neg) Influenza Type B (PCR) Negative (Neg) RSV (RT-PCR) Negative (Neg) Administered Medications Propofol (Diprivan) 1,000 mg in 100 mls @ 9.264 mls/hr IV .[id number] VI; Protocol Stop: 12/04/22 23:44 Last Admin: 12/02/22 00:30 Dose: 20 mcg/kg/min, 9.3 mls/hr Documented By: CC Co-signed By: JENY Norepinephrine Bitartrate (Levophed/D5w) 4 mg in 250 mls @ 14.475 mls/hr IV .[id number] VI; Protocol Stop: 01/01/23 00:44 Last Titration: 12/02/22 00:29 Dose: 0.15 mcg/kg/min, 43.4 mls/hr Documented By: Titration: 12/02/22 00:00 Dose: 0.2 mcg/kg/min, 57.9 mls/hr Documented By: Admin: 12/01/22 22:51 Dose: 0.1 mcg/kg/min, 29 mls/hr Documented By: JAYLIN Co-signed By: JENY Discontinued Medications Albuterol (Albut/Ipratrop 3mg/0.5mg Neb 3 Ml Vial) 12 ml NEB ONE ONE; Protocol Stop: 12/01/22 22:18 Last Admin: 12/01/22 22:30 Dose: 12 ml Documented By: ANTON Dexamethasone Sodium Phosphate (DexamethasonePf 10 Mg/Ml Vial) 10 mg IV NOW ONE Stop: 12/01/22 22:18 Last Admin: 12/01/22 23:59 Dose: 10 mg Documented By: JAYLIN Dextrose (Dextrose 50% 50 Ml Syringe) 50 ml IV NOW STA Stop: 12/01/22 22:58 Last Admin: 12/01/22 23:52 Dose: 50 ml Documented By: JAYLIN Epinephrine HCl (Epinephrine 1.5" Ndl 0.1 Mg/Ml Syr) Confirm Administered Dose 1 mg IV .STK-MED ONE Stop: 12/01/22 22:22 Last Admin: 12/01/22 22:23 Dose: 1 mg Documented By: ELAINA Epinephrine HCl (Epinephrine 1.5" Ndl 0.1 Mg/Ml Syr) Confirm Administered Dose 1 mg IV .STK-MED ONE Stop: 12/01/22 23:37 Last Admin: 12/01/22 23:37 Dose: 0.1 mg Documented By: JYALIN Sodium Chloride (Nss 1000ml) 1,000 mls @ 999 mls/hr IV .Q1H1M VI Stop: 12/01/22 23:15 Last Infusion: 12/02/22 00:28 Dose: 0 mls/hr Documented By: Admin: 12/01/22 23:17 Dose: 999 mls/hr Documented By: MANISHA Calcium Gluconate () 1,000 mg in 60 mls @ 240 mls/hr IV Q15M VI Stop: 12/01/22 23:29 Last Infusion: 12/02/22 00:29 Dose: 0 mls/hr Documented By: Admin: 12/02/22 00:11 Dose: 240 mls/hr Documented By: CC Cefepime HCl (Maxipime) 2,000 mg in 20 mls @ 5 mls/min IV NOW STA; Protocol Stop: 12/01/22 23:18 Last Admin: 12/02/22 00:02 Dose: 5 mls/min Documented By: CC Sodium Chloride (Nss 1000ml) 1,000 mls @ 999 mls/hr IV .Q1H1M ONE Stop: 12/02/22 00:23 Last Admin: 12/01/22 23:38 Dose: 999 mls/hr Documented By: JAYLIN Insulin Human Regular (Novolin-R Insulin Per Unit Charge) 10 units IV NOW STA Stop: 12/01/22 23:06 Last Admin: 12/01/22 23:50 Dose: 10 units Documented By: JAYLIN Co-signed By: JENY Ioversol (Optiray 320 500ml) 125 ml IV ONCE ONE Stop: 12/01/22 23:23 Last Admin: 12/01/22 23:22 Dose: 112 ml Documented By: HUSSEIN Miscellaneous (Rapid Sequence Induction Bag) Confirm Administered Dose 1 each .ROUTE .STK-MED ONE Stop: 12/01/22 22:03 Last Admin: 12/01/22 22:10 Dose: 1 each Documented By: JAYLIN Norepinephrine Bitartrate (Norepinephrine/D5w 4 Mg/250 Ml) Confirm Administered Dose 4 mg IV .STK-MED ONE Stop: 12/01/22 22:47 Last Admin: 12/01/22 22:51 Dose: 4 mg Documented By: JENY Sodium Bicarbonate (Sodium Bicarb 8.4% Inj 50 Meq/50 Ml Syr) 50 meq IV NOW STA Stop: 12/01/22 22:57 Last Admin: 12/01/22 23:33 Dose: 50 meq Documented By: CC Discharge Plan Visit Data Chief Complaint: Altered Mental Status Stated Complaint: ALTERED MENTAL STATUS ED Provider: Yung Bermeo Discharge Problem: Acute respiratory failure with hypoxia, Right lower lobe pneumonia, Acute renal failure, Acute hyperkalemia, Acute hypotension, Hypocalcemia, Lactic acidosis, Rhabdomyolysis, Elevated troponin Patient Disposition: Admitted As Inpatient Discharge Instructions Interventions: ED Discharge Assessment Last Done: 12/02/22 01:05 Forms Stand Alone Forms: [employer] Prescriptions Prescriptions: No Action losartan 100 mg tablet 100 mg PO QAM Qty: 90 3RF omeprazole 20 mg capsule,delayed release(DR/EC) 20 mg PO QAM Qty: 90 3RF metoprolol succinate 100 mg tablet extended release 24 hr 100 mg PO QAM Qty: 90 3RF venlafaxine 150 mg capsule,extended release 24hr 150 mg PO QAM Qty: 90 3RF Rx Instructions: Take with 75mg capsule to = 225mg total daily dose. rosuvastatin 5 mg tablet 5 mg PO DAILY Qty: 90 3RF clonazepam 1 mg tablet 1 mg PO TID Qty: 90 1RF acetaminophen 325 mg tablet 650 mg PO Q6H PRN (Reason: pain, mild) anastrozole 1 mg tablet 1 mg PO QAM multivitamin with minerals Capsule 1 cap PO QAM cholecalciferol (vitamin D3) 50 mcg (2,000 unit) capsule 50 mcg PO QAM hydromorphone 8 mg tablet 4 mg PO Q4 PRN (Reason: Pain, Severe) Rx Instructions: 1/2 tablet dose gabapentin 600 mg tablet 600 mg PO QAM Ibrance 1 dose PO UD Rx Instructions: take daily for 3 weeks then off for 1 week magnesium 250 mg Tablet 250 mg PO DAILY calcium carbonate-vitamin D3 [Calcium 600 + D(3)] 600 mg-10 mcg (400 unit) Tablet 1 tab PO QAM venlafaxine 75 mg capsule,extended release 24hr 75 mg PO QAM Rx Instructions: Take with 150mg capsule to = 225mg daily dose Referrals Referrals: Judie Ojeda CRNP [Primary Care Provider] - : Right lower lobe pneumonia Qualifiers: Pneumonia type: due to unspecified organism Qualified Code(s): J18.9 - Pneumonia, unspecified organism Acute renal failure Qualifiers: Acute renal failure type: unspecified Qualified Code(s): N17.9 - Acute kidney failure, unspecified Rhabdomyolysis Qualifiers: Rhabdomyolysis type: non-traumatic Qualified Code(s): M62.82 - Rhabdomyolysis
[2022-12-01] MEDS ORDERED: SODIUM CHLORIDE 0.9% 1000ML 1,000 ML IV ONE (23:23)
[2022-12-01 23:44] LABS: Influenza A virus by PCR Negative (Neg); Influenza B virus by PCR Negative (Neg); RSV by PCR Negative (Neg); SARS CoV2 RNA(COVID-19) Ceph NEGATIVE (Negative)
[2022-12-01] MEDS ORDERED: propofoL 1,000 MG/100 ML VIAL IV SCH (23:45)
--- NOTE | 2022-12-01 23:52 | History & Physical Report ---
Date of Service December 01, 2022 Assessment & Plan (1) Acute respiratory failure with hypoxia: (2) Right lower lobe pneumonia: (3) Acute renal failure: (4) Acute hyperkalemia: (5) Acute hypotension: (6) Hypocalcemia: (7) Rhabdomyolysis: (8) Elevated troponin: (9) Hypertension: (10) Hyperlipidemia: (11) Type II diabetes mellitus: Plan Acute respiratory failure with hypoxia/right lower and upper lobe pneumonia- Intubated in the ED Follow serial ABGs and ventilation management per finance intern team in the ICU Received cefepime 2 g IV in the ED and will continue MRSA swab pending Septic shock- Presumptive source is pulmonary Versus renal Levophed begun in the ED and titrated Broad-spectrum antibiotics IV fluid resuscitation Also given a couple amps of bicarbonate and bicarbonate drip started Patient did respond favorably to 0.5mg of epinephrine IV push from the ED Acute kidney failure/rhabdomyolysis- Creatinine 4.21 admission, with baseline 0.91 Creatinine kinase 881 Received 3 L normal saline in ED Give additional bolus with Normosol-R, then maintenance Started on bicarb drip 150 mEq at 60 mils per hour Follow serial CBC with differential, CMP and magnesium levels Hyperkalemia- Potassium 6.0 upon admission, secondary to acute renal failure Received an amp of D50 followed by 10 units regular insulin IV Received calcium gluconate 1 g IV Recheck laboratories in a.m. Hypomagnesemia- Magnesium 1.3 on admission With renal adjustment, give magnesium sulfate 2 g IV, recheck laboratories in a.m. Elevated troponin/hypertension- Troponin 1727.4 at admission, follow serially Order 2D echocardiogram with Dopplers EKG with new T wave inversions in leads I and aVL, and V2 and V3 Abnormal LFTs- AST 612, ALT 206 Likely shock liver Recheck laboratories in a.m. Hypocalcemia- Ionized calcium 0.67 Did receive calcium gluconate IV for hyperkalemia protection Recheck labs in a.m. after administration of IV fluids and adjust as needed History of Present Illness Chief Complaint: The patient presented to the emergency department with report by family being ill for the past few days and got significantly worse as the day progressed, and was thought to been lying on the floor all night last night. Upon arrival to the emergency department, the patient was blue mottled appearing, was not taking adequate respirations, was then moved to the trauma bay and intubated by the ED staff Primary Care Provider: MARKUS Cabezas The patient is a 72-year-old female with a past medical history including bilateral breast cancer, hypertension, regular alcohol consumption, depression with anxiety, diverticulitis, hyperlipidemia, seasonal allergies, GERD, mild mitral valve prolapse, diabetes mellitus type 2, vitamin D deficiency, pathologic fracture of pelvis and lumbosacral spine, folate deficiency, metastatic cancer and history of acute kidney injury due to acute dehydration. The patient presents to the emergency department as noted above, and acute respiratory failure with hypoxia and hypercapnia. She was intubated by emergency department as noted, and further work-up progressed. Significant abnormal laboratories: Hemoglobin 9.6, hematocrit 29.0, potassium 6.0, creatinine 4.21, lactate 3.4, magnesium 1.3, ionized calcium 0.67, AST 612, ALT 206, troponin 1727.4. EKG showed new T wave inversions in leads I and aVL, V2 and V3 Chest x-ray showed endotracheal tube in proper position, cardiomegaly, and CTA chest was negative for PE. There were patchy infiltrates in the right upper and lower lobe. Liver was fatty and hypodense. Fatty pancreas. Emphysematous changes at the left lung apex with a subpleural bleb. Allergies Allergy/AdvReac Type Severity Reaction Status Date / Time fentanyl AdvReac Severe Hallucinati Verified 08/26/22 08:14 on Home Medications Medication Instructions Recorded Confirmed Type cholecalciferol (vitamin D3) 50 50 mcg PO QAM 01/06/22 12/01/22 History mcg (2,000 unit) capsule acetaminophen 325 mg tablet 650 mg PO Q6H PRN pain, mild 02/08/22 12/01/22 History anastrozole 1 mg tablet 1 mg PO QAM 02/08/22 12/01/22 History multivitamin with minerals 1 cap PO QAM 02/08/22 12/01/22 History losartan 100 mg tablet 100 mg PO QAM #90 tabs 05/30/22 12/01/22 Rx metoprolol succinate 100 mg 100 mg PO QAM #90 tabs 07/23/22 12/01/22 Rx tablet,extended release 24 hr omeprazole 20 mg capsule,delayed 20 mg PO QAM #90 caps 07/23/22 12/01/22 Rx release Ibrance 1 dose PO UD 08/12/22 08/26/22 History calcium carbonate 600 mg-vitamin 1 tab PO QAM 08/12/22 12/01/22 History D3 10 mcg (400 unit) tablet (Calcium 600 + D(3)) gabapentin 600 mg tablet 600 mg PO QAM 08/12/22 12/01/22 History hydromorphone 8 mg tablet 4 mg PO Q4 PRN Pain, Severe 08/12/22 12/01/22 History magnesium 250 mg tablet 250 mg PO DAILY 08/12/22 12/01/22 History venlafaxine 150 mg 150 mg PO QAM #90 caps 09/04/22 12/01/22 Rx capsule,extended release 24 hr rosuvastatin 5 mg tablet 5 mg PO DAILY #90 tabs 10/03/22 12/01/22 Rx clonazepam 1 mg tablet 1 mg PO TID #90 tabs 10/22/22 12/01/22 Rx venlafaxine 75 mg capsule,extended 75 mg PO QAM 12/01/22 12/01/22 History release 24 hr Past Med/Surg History Medical History (Updated 12/02/22 @ 00:43 by Yung Bermeo MD) Acute alteration in mental status Bilateral breast cancer [id number]--sx/chemo/radiation Breast cancer metastasized to bone 2021 Depression with anxiety Diverticular disease Elevated serum creatinine Elevated troponin Hypercapnia Hyperlipidemia Hypertension Hypoxemia Mild mitral valve prolapse hx of; 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 Osteoarthritis Pain of right lower extremity Type II diabetes mellitus Vitamin D deficiency Surgical History (Updated 08/14/22 @ 08:55 by Priyanka Jacques RN) H/O tubal ligation History of appendectomy History of section History of colonoscopy History of esophagogastroduodenoscopy (EGD) History of left breast biopsy malignant History of lumpectomy of both breasts x2 History of right breast biopsy malignant History of tooth extraction History of wisdom tooth extraction Hx laparoscopic cholecystectomy (08/13/22) Laparoscopic Cholecystectomy - Alexandro Alvarez DO, FACS Status post correction of deviated nasal septum Family History Grandmother (Maternal) AAA (abdominal aortic aneurysm) Family history of diabetes mellitus Mother No problems noted. 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 Neck--supple. No JVD. No bruits. Thyroid normal, trachea midline, no adenopathy. Heart--tachycardic and regular no murmurs, rubs or gallops. Lungs--mildly coarse breath sounds, right greater than left, on the ventilator. Abdomen--normal bowel sounds and soft. nondistended Extremities--no cyanosis or clubbing. No edema. Dermatologic--skin is cold and clammy, blue and mottled appearing Neurologic--sedated and paralyzed Rheumatologic-sedated and paralyzed Psychiatric--sedated and paralyzed Results & Data Results & Data ([facility]) Vital Signs (Past 12 Hours) Vital Signs Temp Pulse Pulse Resp BP BP Pulse Ox 12/01/22 23:41 74 22 12/01/22 23:41 142/107 H 12/01/22 23:40 68 22 95 12/01/22 23:36 94/66 L 12/01/22 23:36 62 24 12/01/22 23:30 64 22 12/01/22 23:30 74/56 L 12/01/22 23:27 67 22 91 12/01/22 23:27 86/71 L 12/01/22 23:24 92 12/01/22 23:01 88 22 12/01/22 23:01 113/79 12/01/22 23:00 90 22 12/01/22 23:26 37.1 C 67 22 86/71 L 93 12/01/22 23:14 80 L 12/01/22 22:06 37.4 C 68 12 82/63 L 66 L O2 Del Method O2 Flow Rate FiO2 12/01/22 23:41 12/01/22 23:41 12/01/22 23:40 Mechanical Vent 100 12/01/22 23:36 12/01/22 23:36 12/01/22 23:30 12/01/22 23:30 12/01/22 23:27 Mechanical Vent 12/01/22 23:27 12/01/22 23:24 Mechanical Vent 12/01/22 23:01 12/01/22 23:01 12/01/22 23:00 12/01/22 23:26 Mechanical Vent 12/01/22 23:14 Mechanical Vent, Non-rebreather 15 12/01/22 22:06 Room Air Laboratory Results Laboratory Results WBC 7.93 K/ul (4.8-10.8) 12/01/22 22:21 RBC 2.47 M/uL (3.93-5.22) L 12/01/22 22:21 Hgb 9.6 g/dl (12.0-16.0) L 12/01/22 22:21 POC Hgb 9.5 g/dl (12.0-16.0) L 12/01/22 22:33 Hct 29.0 % (34.1-44.9) L 12/01/22 22:21 POC Hct 28 % (37-47) L 12/01/22 22:33 MCV 117.4 fL (80.0-100.0) H 12/01/22 22:21 MCH 38.9 pg (25.0-34.0) H 12/01/22 22:21 MCHC 33.1 g/dL (32.0-36.0) 12/01/22 22:21 RDW Std Deviation 65.7 fL (36.4-46.3) H 12/01/22 22:21 RDW Coeff of Cheri 15.5 % (11.5-14.5) H 12/01/22 22:21 Plt Count 163 K/uL (130-400) 12/01/22 22:21 MPV 10.8 fL (9.4-12.3) 12/01/22 22:21 Immature Gran % (Auto) 0.9 % 12/01/22 22:21 Neut % (Auto) 79.6 % 12/01/22 22:21 Lymph % (Auto) 12.1 % 12/01/22 22:21 Gibson % (Auto) 7.3 % 12/01/22 22:21 Eos % (Auto) 0.0 % 12/01/22 22:21 Baso % (Auto) 0.1 % 12/01/22 22:21 Neut # (Auto) 6.31 K/uL (1.4-6.5) 12/01/22 22:21 Lymph # (Auto) 0.96 K/uL (1.2-3.4) L 12/01/22 22:21 Gibson # (Auto) 0.58 K/uL (0.24-0.82) 12/01/22 22:21 Eos # (Auto) 0.00 K/uL (0-0.50) 12/01/22 22:21 Baso # (Auto) 0.01 K/uL (0-0.2) 12/01/22 22:21 Immature Gran # (Auto) 0.07 K/uL (0.00-0.02) H 12/01/22 22:21 Absolute Nucleated RBC 0.33 K/uL (0-0) H 12/01/22 22:21 Nucleated RBC % (auto) 4.2 % 12/01/22 22:21 Polychromasia 1+ 12/01/22 22:21 Macrocytosis Present 12/01/22 22:21 APTT 28.2 Seconds (21.0-31.0) 12/01/22 22:21 PTT Ratio 1.0 12/01/22 22:21 POC pH 7.29 (7.35-7.45) L 12/01/22 22:32 POC pCO2 36 mmHg (35-46) 12/01/22 22:32 POC pO2 > 420 mmHg (80-95) H 12/01/22 22:32 POC HCO3 18 martinez/L (19-24) L 12/01/22 22:32 POC Total CO2 19 mmol/L (24-31) L 12/01/22 22:32 POC Base Excess -9.0 martinez/L (-9-1.8) 12/01/22 22:32 POC ABG O2 Sat 100.0 % (90-95) H 12/01/22 22:32 VBG pH 7.15 (7.36-7.41) L 12/01/22 22:21 VBG pCO2 65 mmHg (38-50) H 12/01/22 22:21 VBG pO2 32 mmHg 12/01/22 22:21 VBG HCO3 23 mmol/L 12/01/22 22:21 VBG O2 Saturation < 60.0 % 12/01/22 22:21 VBG Base Excess -7.3 mEq/L 12/01/22 22:21 POC Sodium 141 mmol/L (135-144) 12/01/22 22:33 Sodium 142 mmol/L (136-145) 12/02/22 00:42 POC Potassium 6.0 mmol/L (3.3-5.0) H 12/01/22 22:33 Potassium 4.3 mmol/L (3.5-5.1) D 12/02/22 00:42 POC Chloride 107 mmol/L (101-112) 12/01/22 22:33 Chloride 106 mmol/L (98-107) 12/02/22 00:42 Carbon Dioxide 19 mmol/L (21-32) L 12/02/22 00:42 POC Total CO2 27 mmol/L (24-31) 12/01/22 22:33 Anion Gap 17 (3-11) H 12/02/22 00:42 POC Anion Gap 14.0 mmol/L (16-25) L 12/01/22 22:33 POC BUN 56 mg/dl (7-18) H 12/01/22 22:33 BUN 48 mg/dl (6-23) H 12/02/22 00:42 Creatinine 4.16 mg/dl (0.6-1.2) H 12/02/22 00:42 POC Creatinine 4.6 mg/dl (0.6-1.3) H* 12/01/22 22:33 Est Cr Clr Drug Dosing 13.5 ml/min 12/02/22 00:42 Est GFR ( Amer) 11.8 ml/min 12/02/22 00:42 Est GFR (Non-Af Amer) 10.2 ml/min 12/02/22 00:42 BUN/Creatinine Ratio 11.5 (10-20) 12/02/22 00:42 Glucose 156 mg/dl (70-99(Fasting)) H 12/02/22 00:42 POC Glucose (other) 87 mg/dl (70-99) 12/01/22 22:33 Lactate 3.4 mmol/L (0.4-2.0) H* 12/01/22 22:21 Calcium 5.3 mg/dl (8.5-10.1) L* 12/02/22 00:42 POC Ioniz Calcium Kimberly 0.67 mmol/l (1.12-1.32) L* 12/01/22 22:33 Magnesium 1.3 mg/dl (1.7-2.4) L 12/01/22 22:21 Total Bilirubin 0.9 mg/dl (0.2-1.0) 12/01/22 22:21 Direct Bilirubin 0.3 mg/dl (0-0.2) H 12/01/22 22:21 AST 612 U/L (13-39) H 12/01/22 22:21 ALT 206 U/L (7-52) H 12/01/22 22:21 Alkaline Phosphatase 123 U/L (34-104) H 12/01/22 22:21 Total Creatine Kinase 881 U/L (26-192) H 12/01/22 22:21 Troponin I High Sens 1727.4 pg/ml (0-14) H* 12/01/22 22:21 Total Protein 7.3 gm/dl (6.0-8.3) 12/01/22 22:21 Albumin 3.7 gm/dl (3.4-5.0) 12/01/22 22:21 Procalcitonin 4.29 ng/ml (0-0.5) H 12/01/22 22:21 Urine Color Dark Yellow 12/01/22 Unknown Urine Appearance Cloudy (Clear) A 12/01/22 Unknown Urine pH 5.5 (4.5-7.5) 12/01/22 Unknown Ur Specific Boron 1.017 (1.000-1.030) 12/01/22 Unknown Urine Protein 3+ (Negative) H 12/01/22 Unknown Urine Glucose (UA) Negative (Negative) 12/01/22 Unknown Urine Ketones Negative (Negative) 12/01/22 Unknown Urine Blood Trace (Negative) H 12/01/22 Unknown Urine Nitrite Negative (Negative) 12/01/22 Unknown Urine Bilirubin Negative (Negative) 12/01/22 Unknown Urine Urobilinogen Negative (Negative) 12/01/22 Unknown Ur Leukocyte Esterase Negative (Negative) 12/01/22 Unknown Urine WBC (Auto) 1-5 /hpf (0-5) 12/01/22 Unknown Urine RBC (Auto) 0-4 /hpf (0-4) 12/01/22 Unknown U Hyaline Cast (Auto) 1-5 /lpf (0-5) 12/01/22 Unknown U Epithel Cells (Auto) >30 /lpf (0-5) H 12/01/22 Unknown Urine Bacteria (Auto) Negative (Negative) 12/01/22 Unknown Urine Crystals Not Reportable 12/01/22 Unknown Uric Acid Crystals Present (None Prsent) A 12/01/22 Unknown SARS-CoV-2 (PCR) NEGATIVE (Negative) 12/01/22 22:58 Influenza Type A (PCR) Negative (Neg) 12/01/22 22:58 Influenza Type B (PCR) Negative (Neg) 12/01/22 22:58 RSV (RT-PCR) Negative (Neg) 12/01/22 22:58 Code Status & VTE Plan Code Status Full code VTE Prophylaxis Plan VTE Prophylaxis will be ordered: Yes PG Care Time/CCT Total # of Minutes Spent Total Time Spent with Patient: Total time spent is greater than 50% in coordination of care (as documented) at patient's floor/unit and/or counseling patient: 50 minutes Coding Level of Care Code 71795 INT INP/OBS CARE 3/75MIN Diagnoses Acute respiratory failure with hypoxia J96.01 Right lower lobe pneumonia J18.9 Pneumonia type: due to unspecified organism Acute renal failure N17.9 Acute renal failure type: unspecified Acute hyperkalemia E87.5 Acute hypotension I95.9 Hypocalcemia E83.51 Rhabdomyolysis M62.82 Rhabdomyolysis type: non-traumatic Elevated troponin R77.8 Hypertension I10 Hyperlipidemia E78.5 Type II diabetes mellitus E11.9 Time Spent (min) 60 (1) Acute renal failure Acute renal failure type: unspecified Qualified Code(s): N17.9 - Acute kidney failure, unspecified (2) Rhabdomyolysis Rhabdomyolysis type: non-traumatic Qualified Code(s): M62.82 - Rhabdomyolysis (3) Right lower lobe pneumonia Pneumonia type: due to unspecified organism Qualified Code(s): J18.9 - Pneumonia, unspecified organism
[2022-12-01] MEDS ORDERED: PROPOFOL BOLUS FROM BAG IV PRN (23:58)
[2022-12-01] MEDS ORDERED: STAT IV Infusion **Titration per Protocol STA (23:58)
[2022-12-02 00:11] LABS: Appearance Urine Cloudy (Clear); Bacteria Urine Automated Negative (Negative); Bilirubin Urine Negative (Negative); Blood Urine Trace (Negative); Color Urine Dark Yellow; Epithelial Cell Urine Auto >30 /lpf (0-5); Glucose Urine UA Negative (Negative); Ketones Urine Negative (Negative); Leukocyte Esterase Urine Negative (Negative); Nitrite Urine Negative (Negative); Protein Urine 3+ (Negative); RBC Urine Automated 0-4 /hpf (0-4); Specific Gravity Urine 1.017 (1.000-1.030); Urobilinogen Urine Negative (Negative); pH Urine 5.5 (4.5-7.5)
[2022-12-02] MEDS: CALCIUM GLUCONATE 1,000 MG/60 ML BAG IV SCH ×2 (00:11→03:19)
[2022-12-02] MEDS ORDERED: STAT IV Infusion **Titration per Protocol STA ×4 (00:43→16:03)
[2022-12-02 00:48] LABS: Uric Acid Crystals Urine Present (None Prsent)
--- NOTE | 2022-12-02 00:57 | Critical Care Consultation ---
Date of Consultation December 02, 2022 Assessment & Plan (1) Acute respiratory failure with hypoxia: (2) Right lower lobe pneumonia: (3) Acute renal failure: (4) Acute hyperkalemia: (5) Lactic acidosis: (6) Elevated troponin: (7) History of bilateral breast cancer: (8) Regular alcohol consumption: (9) Shock circulatory: Plan Reason Critically Ill: 72 YOF presents with encephalopathy, hypoxia, hypotension, shock. Immediatley intubated on arrival, her hyperkalemia is resolving and with Acute renal failure secondary to undifferentiated shock. Neuro - Encephalopathy- Metabolic, Sedation for mechanical ventilation, ETOH misuse CAM ICU: KAIT - Correct acidosis- CT head on arrival negative for acute process - CT of cervical spine interpreted by STAT rad as no acute fracture/subluxation- C- spine cleared in EMD - Continue with sedation for mechanical ventilation - No seizure activity reported - continue with propofol infusion - versed given on arrival to ICU secondary to patient clenched fists, rigidity to legs, and biting at ETT- consider EEG if encephalopathy does not clear - Home narcotics for her metastatic pain disease- hold for now - Reports regular alcohol use at home 1 bottle per day of liquiour mentioned could be more or less- either way follow for withdrawl Cardiac - Shock- requiring vasopressor support, Elevated HScTNI, Prolonged QT Patient arrives with shock undifferentiated at this time but multifactorial to include hypovolemia and sepsis - evidence of organ dysfunction- heart, elevated LFTs, encephalopathy, pulmonary hypoxia - lactate elevated- follow continue with resuscitaton efforts - vasopressors to maintain MAP >65 - Continue with isotonic bicarb and PRN fluid boluses for low MAP and/or low urine output - Her Elevated HScTNI in the setting of ARF- without STEMI- likely demand at this time- continue to trend ECG once hyperkalmia resolved - trend HScTNI - consider heparin if NSTEMi apparent or likleyhood of 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- ECHO pending - Replete Magnesium in regards to her prolonged QT- hold other qt prolongation drugs Respiratory - Hypercarbic/hypoxic respiratory failure requiring intubation, emphysema, pneumonia - Continue with ARDSnet ventilation strategy- low PEEP/High FIO2- wean as able - Hold on further steroid administration- continue with TAMI nebulizers while intubated - no wheezing on exam - CTA chest interpreted as negative for PE - Opacity right - likely aspiration- place on cefepime for now- without elevation of WBC GI - No acute needs - OGT to LIWS - initiate tube feeds when pressor requirements decrease RENAL/LYTES - ARF on CKD, Hyperkalemia, Hypocalcemia, Hypomagnesemia, Metabolic and Respiratory Acidosis, AGAP Acidosis - Likely pre-renal/ATN in setting of hypotension- continue with volume replacement with isotonic HCO3 and then change to isotonic crystalloid - Electrolytes replace - AGAP- lactic acidosis and elevation of BUN likely - Hyperkalemia currently resolved - however urine output scant- - Negative UA - As above- martinez to gravity- no cute needs ENDO - DMII - ICU hyperglycemia protocol HEME - Metastatic breast cancer - hold agents at this time - no acute needs - pain control adjust based on renal function and following extubation ID - Pneumonia - aspiration vs. bacterial - supportive care as above - await culture results - Cefepmie for now - MRSA swab pending LINES/IV ACCESS - CVL right groin, Krysta right radial, ETT, OGT, Martinez, PIV, Continue use of thes lines DVT PROPHYLAXIS - SCDS, Heparin sub q DISPO: ICU while intubated and on vasopressors I have personally spent 52 minutes of critical care time in the direct management of this patient. This is a life/limb threatening event. This includes time spent evaluating patient, direct bedside care, chart review, placing orders, interpretation of diagnostic studies, discussion with consultants, patient, and family members, as well as other required patient management activities. This time is exclusive of all separately billable procedures, and separate from and in addition to any other critical care service time. Thank you for allowing us to participate in the care of this patient. Please refer to my attending physician's documentation for any further recommendations. History of Present Illness Reason for Consultation: intubated sedated, hypoxia, hypotensive, encephalopathic Requesting Physician: Flavio Hogue Attending Physician: Flavio Hogue History of Present Illness 72 YOF currently being treated for metastatic breast cancer, CKD III, HTN, ETOH misuse, DMII. Breast cancer dx in 2002- metastatic disease to sacrum and spinal cord, and iliacs. Patient was brought in by family after being found her down at her sisters house sleeping on the floor. She was encephalopathic on arrival, hypoxic, and hypotensive and mottled to face and chest. She was immediately intubated with reported difficultly oxygenating the patient, wheter this was from underlying pathology or her profound hypotension. She was given push dose epinephrine as well as started on Levophed infusion, which improved her perfusion. She was also noted to have increase in her TANK CARPENTER to 4.5 as well as hyperkalemia to 6 on arrival. Was requested to administer calcium gluconate, HCO3 push, followed by infusion as well as obtain CTA of the chest. Overall the patient is with multiple electrolyte derangements, likely aspiration pneumonia, and undifferentiated shock at this time likely component of hypovolemia and septic. Patient admitted to the ICU for continued care and correction of acid base disturbances. At this time patient remains FULL CODE COVID/FLU/RSV: NEGATIVE on arrival. Allergies Allergy/AdvReac Type Severity Reaction Status Date / Time fentanyl AdvReac Severe Hallucinati Verified 08/26/22 08:14 on Home Medications Medication Instructions Recorded Confirmed Type cholecalciferol (vitamin D3) 50 50 mcg PO QAM 01/06/22 12/01/22 History mcg (2,000 unit) capsule acetaminophen 325 mg tablet 650 mg PO Q6H PRN pain, mild 02/08/22 12/01/22 History anastrozole 1 mg tablet 1 mg PO QAM 02/08/22 12/01/22 History multivitamin with minerals 1 cap PO QAM 02/08/22 12/01/22 History losartan 100 mg tablet 100 mg PO QAM #90 tabs 05/30/22 12/01/22 Rx metoprolol succinate 100 mg 100 mg PO QAM #90 tabs 07/23/22 12/01/22 Rx tablet,extended release 24 hr omeprazole 20 mg capsule,delayed 20 mg PO QAM #90 caps 07/23/22 12/01/22 Rx release Ibrance 1 dose PO UD 08/12/22 08/26/22 History calcium carbonate 600 mg-vitamin 1 tab PO QAM 08/12/22 12/01/22 History D3 10 mcg (400 unit) tablet (Calcium 600 + D(3)) gabapentin 600 mg tablet 600 mg PO QAM 08/12/22 12/01/22 History hydromorphone 8 mg tablet 4 mg PO Q4 PRN Pain, Severe 08/12/22 12/01/22 History magnesium 250 mg tablet 250 mg PO DAILY 08/12/22 12/01/22 History venlafaxine 150 mg 150 mg PO QAM #90 caps 09/04/22 12/01/22 Rx capsule,extended release 24 hr rosuvastatin 5 mg tablet 5 mg PO DAILY #90 tabs 10/03/22 12/01/22 Rx clonazepam 1 mg tablet 1 mg PO TID #90 tabs 10/22/22 12/01/22 Rx venlafaxine 75 mg capsule,extended 75 mg PO QAM 12/01/22 12/01/22 History release 24 hr Patient History Medical History Acute alteration in mental status Bilateral breast cancer [id number]--sx/chemo/radiation Breast cancer metastasized to bone 2021 Depression with anxiety Diverticular disease Elevated serum creatinine Elevated troponin Hypercapnia Hyperlipidemia Hypertension Hypoxemia Mild mitral valve prolapse hx of; 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/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 Osteoarthritis Pain of right lower extremity Type II diabetes mellitus Vitamin D deficiency Surgical History H/O tubal ligation History of appendectomy History of section History of colonoscopy History of esophagogastroduodenoscopy (EGD) History of left breast biopsy malignant History of lumpectomy of both breasts x2 History of right breast biopsy malignant History of tooth extraction History of wisdom tooth extraction Hx laparoscopic cholecystectomy (08/13/22) Laparoscopic Cholecystectomy - Alexandro Alvarez, , FACS Status post correction of deviated nasal septum Family History Grandmother (Maternal) AAA (abdominal aortic aneurysm) Family history of diabetes mellitus Mother No problems noted. 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 Children do You have: 1 Other Information That Helps Us Care for You: No Feels Safe at Home: Yes Safety Concerns: Feels Safe At This Time Seatbelt Use: always Sunscreen Use: Yes Assistive Devices: None Review of Systems Review of Systems: Unable to assess secondary to intubation and sedation Physical Exam Physical Exam: PHYSICAL EXAM: General: Sedated Head: Mottling to neck, chin and ears ENT: PEERLA, no pharyngeal exudate, mucous membranes dry Neuro: AAO x 3, speech clear and appropriate, strength intact bilaterally 5/5, sensation intact and equal all extremities and dermatones, no pronator drift Chest: equal rise and fall of the chest, ventilation and oxygenation improved Cardiac: Regular rate and rhythm, telemetry reviewed- NSR, skin cool dry, cap refill <3 seconds, peripheral pulses deminished, no JVD, no murmur, trace edema GI: NABS x 4 quadrants, soft, nontender to palpation, no rebound, guarding or tenderness : Martinez to gravity draining small amount of urine Results & Data Results & Data ([facility]) Vital Signs (Past 12 Hours) Vital Signs Temp Pulse Pulse Resp BP BP Pulse Ox 12/02/22 00:30 72 23 100 12/02/22 00:30 69 158/106 H 12/02/22 00:20 71 22 100 12/02/22 00:20 163/108 H 12/01/22 22:35 22 12/01/22 22:30 22 100 12/01/22 22:25 96 H 22 100 12/02/22 00:11 70 146/100 H 100 12/02/22 00:11 70 21 100 12/02/22 00:10 70 23 100 12/02/22 00:00 71 23 100 12/02/22 00:00 166/96 H 12/01/22 23:51 132/88 12/01/22 23:51 73 23 100 12/01/22 23:50 74 16 100 12/01/22 23:41 74 22 12/01/22 23:41 142/107 H 12/01/22 23:40 68 22 95 12/01/22 23:36 94/66 L 12/01/22 23:36 62 24 12/01/22 23:30 64 22 12/01/22 23:30 74/56 L 12/01/22 23:27 67 22 91 12/01/22 23:27 86/71 L 12/01/22 23:24 92 12/01/22 23:01 88 22 12/01/22 23:01 113/79 12/01/22 23:00 90 22 12/01/22 23:26 37.1 C 67 22 86/71 L 93 12/01/22 23:14 80 L 12/01/22 22:06 37.4 C 68 12 82/63 L 66 L O2 Del Method O2 Flow Rate FiO2 12/02/22 00:30 Mechanical Vent 12/02/22 00:30 12/02/22 00:20 Mechanical Vent 12/02/22 00:20 12/01/22 22:35 50 12/01/22 22:30 Mechanical Vent 50 12/01/22 22:25 100 12/02/22 00:11 Mechanical Vent 12/02/22 00:11 Mechanical Vent 12/02/22 00:10 12/02/22 00:00 Mechanical Vent 12/02/22 00:00 12/01/22 23:51 12/01/22 23:51 Mechanical Vent 12/01/22 23:50 Mechanical Vent 12/01/22 23:41 12/01/22 23:41 12/01/22 23:40 Mechanical Vent 100 12/01/22 23:36 12/01/22 23:36 12/01/22 23:30 12/01/22 23:30 12/01/22 23:27 Mechanical Vent 12/01/22 23:27 12/01/22 23:24 Mechanical Vent 12/01/22 23:01 12/01/22 23:01 12/01/22 23:00 12/01/22 23:26 Mechanical Vent 12/01/22 23:14 Mechanical Vent, Non-rebreather 15 12/01/22 22:06 Room Air Laboratory Results Abnormal lab results 12/01/22 12/01/22 12/01/22 Range/Units 22:21 22:21 22:21 RBC 2.47 L (3.93-5.22) M/uL Hgb 9.6 L (12.0-16.0) g/dl POC Hgb (12.0-16.0) g/dl Hct 29.0 L (34.1-44.9) % POC Hct (37-47) % MCV 117.4 H (80.0-100.0) fL MCH 38.9 H (25.0-34.0) pg RDW Std Deviation 65.7 H (36.4-46.3) fL RDW Coeff of Cheri 15.5 H (11.5-14.5) % Lymph # (Auto) 0.96 L (1.2-3.4) K/uL Immature Gran # (Auto) 0.07 H (0.00-0.02) K/uL Absolute Nucleated RBC 0.33 H (0-0) K/uL POC pH (7.35-7.45) POC pO2 (80-95) mmHg POC HCO3 (19-24) martinez/L POC Total CO2 (24-31) mmol/L POC ABG O2 Sat (90-95) % VBG pH (7.36-7.41) VBG pCO2 (38-50) mmHg POC Potassium (3.3-5.0) mmol/L Potassium 6.0 H (3.5-5.1) mmol/L Carbon Dioxide (21-32) mmol/L Anion Gap 16 H (3-11) POC Anion Gap (16-25) mmol/L POC BUN (7-18) mg/dl BUN 48 H (6-23) mg/dl Creatinine 4.21 H (0.6-1.2) mg/dl POC Creatinine (0.6-1.3) mg/dl Glucose (70-99(Fasting)) mg/dl Lactate 3.4 H* (0.4-2.0) mmol/L Calcium 5.8 L* (8.5-10.1) mg/dl POC Ioniz Calcium Kimberly (1.12-1.32) mmol/l Magnesium 1.3 L (1.7-2.4) mg/dl Direct Bilirubin 0.3 H (0-0.2) mg/dl AST 612 H (13-39) U/L ALT 206 H (7-52) U/L Alkaline Phosphatase 123 H (34-104) U/L Total Creatine Kinase 881 H (26-192) U/L Troponin I High Sens 1727.4 H* (0-14) pg/ml Procalcitonin (0-0.5) ng/ml Urine Appearance (Clear) Urine Protein (Negative) Urine Blood (Negative) U Epithel Cells (Auto) (0-5) /lpf Uric Acid Crystals (None Prsent) 12/01/22 12/01/22 12/01/22 Range/Units 22:21 22:21 22:27 RBC (3.93-5.22) M/uL Hgb (12.0-16.0) g/dl POC Hgb 9.9 L (12.0-16.0) g/dl Hct (34.1-44.9) % POC Hct 29 L (37-47) % MCV (80.0-100.0) fL MCH (25.0-34.0) pg RDW Std Deviation (36.4-46.3) fL RDW Coeff of Cheri (11.5-14.5) % Lymph # (Auto) (1.2-3.4) K/uL Immature Gran # (Auto) (0.00-0.02) K/uL Absolute Nucleated RBC (0-0) K/uL POC pH (7.35-7.45) POC pO2 (80-95) mmHg POC HCO3 (19-24) martinez/L POC Total CO2 (24-31) mmol/L POC ABG O2 Sat (90-95) % VBG pH 7.15 L (7.36-7.41) VBG pCO2 65 H (38-50) mmHg POC Potassium 6.0 H (3.3-5.0) mmol/L Potassium (3.5-5.1) mmol/L Carbon Dioxide (21-32) mmol/L Anion Gap (3-11) POC Anion Gap (16-25) mmol/L POC BUN 55 H (7-18) mg/dl BUN (6-23) mg/dl Creatinine (0.6-1.2) mg/dl POC Creatinine 4.6 H* (0.6-1.3) mg/dl Glucose (70-99(Fasting)) mg/dl Lactate (0.4-2.0) mmol/L Calcium (8.5-10.1) mg/dl POC Ioniz Calcium Kimberly 0.68 L* (1.12-1.32) mmol/l Magnesium (1.7-2.4) mg/dl Direct Bilirubin (0-0.2) mg/dl AST (13-39) U/L ALT (7-52) U/L Alkaline Phosphatase (34-104) U/L Total Creatine Kinase (26-192) U/L Troponin I High Sens (0-14) pg/ml Procalcitonin 4.29 H (0-0.5) ng/ml Urine Appearance (Clear) Urine Protein (Negative) Urine Blood (Negative) U Epithel Cells (Auto) (0-5) /lpf Uric Acid Crystals (None Prsent) 12/01/22 12/01/22 12/01/22 Range/Units 22:32 22:33 Unknown RBC (3.93-5.22) M/uL Hgb (12.0-16.0) g/dl POC Hgb 9.5 L (12.0-16.0) g/dl Hct (34.1-44.9) % POC Hct 28 L (37-47) % MCV (80.0-100.0) fL MCH (25.0-34.0) pg RDW Std Deviation (36.4-46.3) fL RDW Coeff of Cheri (11.5-14.5) % Lymph # (Auto) (1.2-3.4) K/uL Immature Gran # (Auto) (0.00-0.02) K/uL Absolute Nucleated RBC (0-0) K/uL POC pH 7.29 L (7.35-7.45) POC pO2 > 420 H (80-95) mmHg POC HCO3 18 L (19-24) martinez/L POC Total CO2 19 L (24-31) mmol/L POC ABG O2 Sat 100.0 H (90-95) % VBG pH (7.36-7.41) VBG pCO2 (38-50) mmHg POC Potassium 6.0 H (3.3-5.0) mmol/L Potassium (3.5-5.1) mmol/L Carbon Dioxide (21-32) mmol/L Anion Gap (3-11) POC Anion Gap 14.0 L (16-25) mmol/L POC BUN 56 H (7-18) mg/dl BUN (6-23) mg/dl Creatinine (0.6-1.2) mg/dl POC Creatinine 4.6 H* (0.6-1.3) mg/dl Glucose (70-99(Fasting)) mg/dl Lactate (0.4-2.0) mmol/L Calcium (8.5-10.1) mg/dl POC Ioniz Calcium Kimberly 0.67 L* (1.12-1.32) mmol/l Magnesium (1.7-2.4) mg/dl Direct Bilirubin (0-0.2) mg/dl AST (13-39) U/L ALT (7-52) U/L Alkaline Phosphatase (34-104) U/L Total Creatine Kinase (26-192) U/L Troponin I High Sens (0-14) pg/ml Procalcitonin (0-0.5) ng/ml Urine Appearance Cloudy A (Clear) Urine Protein 3+ H (Negative) Urine Blood Trace H (Negative) U Epithel Cells (Auto) >30 H (0-5) /lpf Uric Acid Crystals Present A (None Prsent) 12/02/22 Range/Units 00:42 RBC (3.93-5.22) M/uL Hgb (12.0-16.0) g/dl POC Hgb (12.0-16.0) g/dl Hct (34.1-44.9) % POC Hct (37-47) % MCV (80.0-100.0) fL MCH (25.0-34.0) pg RDW Std Deviation (36.4-46.3) fL RDW Coeff of Cheri (11.5-14.5) % Lymph # (Auto) (1.2-3.4) K/uL Immature Gran # (Auto) (0.00-0.02) K/uL Absolute Nucleated RBC (0-0) K/uL POC pH (7.35-7.45) POC pO2 (80-95) mmHg POC HCO3 (19-24) martinez/L POC Total CO2 (24-31) mmol/L POC ABG O2 Sat (90-95) % VBG pH (7.36-7.41) VBG pCO2 (38-50) mmHg POC Potassium (3.3-5.0) mmol/L Potassium (3.5-5.1) mmol/L Carbon Dioxide 19 L (21-32) mmol/L Anion Gap 17 H (3-11) POC Anion Gap (16-25) mmol/L POC BUN (7-18) mg/dl BUN 48 H (6-23) mg/dl Creatinine 4.16 H (0.6-1.2) mg/dl POC Creatinine (0.6-1.3) mg/dl Glucose 156 H (70-99(Fasting)) mg/dl Lactate (0.4-2.0) mmol/L Calcium 5.3 L* (8.5-10.1) mg/dl POC Ioniz Calcium Kimberly (1.12-1.32) mmol/l Magnesium (1.7-2.4) mg/dl Direct Bilirubin (0-0.2) mg/dl AST (13-39) U/L ALT (7-52) U/L Alkaline Phosphatase (34-104) U/L Total Creatine Kinase (26-192) U/L Troponin I High Sens (0-14) pg/ml Procalcitonin (0-0.5) ng/ml Urine Appearance (Clear) Urine Protein (Negative) Urine Blood (Negative) U Epithel Cells (Auto) (0-5) /lpf Uric Acid Crystals (None Prsent) Diagnostic Findings chest x-ray was obtained which shows cardiomegally with haziness in bilateral bases and likely effusoin right side ET tube is in in palce ~2cm above raghu. CT of the head and cervical spine as per [facility] no acute findings. CT a of the chest as per [facility] right upper lower lung infiltrates with effusion of the right lower lung amongst multiple other findings see chart EKG: Medications Administered Home Medications cholecalciferol (vitamin D3) 50 mcg (2,000 unit) capsule 50 mcg PO QAM 01/06/22 [History Confirmed 12/01/22] acetaminophen 325 mg tablet 650 mg PO Q6H PRN pain, mild 02/08/22 [History Confirmed 12/01/22] anastrozole 1 mg tablet 1 mg PO QAM 02/08/22 [History Confirmed 12/01/22] multivitamin with minerals 1 cap PO QAM 02/08/22 [History Confirmed 12/01/22] losartan 100 mg tablet 100 mg PO QAM #90 tabs 05/30/22 [Rx Confirmed 12/01/22] metoprolol succinate 100 mg tablet,extended release 24 hr 100 mg PO QAM #90 tabs 07/23/22 [Rx Confirmed 12/01/22] omeprazole 20 mg capsule,delayed release 20 mg PO QAM #90 caps 07/23/22 [Rx Confirmed 12/01/22] Ibrance 1 dose PO UD 08/12/22 [History Confirmed 08/26/22] calcium carbonate 600 mg-vitamin D3 10 mcg (400 unit) tablet (Calcium 600 + D(3)) 1 tab PO QAM 08/12/22 [History Confirmed 12/01/22] gabapentin 600 mg tablet 600 mg PO QAM 08/12/22 [History Confirmed 12/01/22] hydromorphone 8 mg tablet 4 mg PO Q4 PRN Pain, Severe 08/12/22 [History Confirmed 12/01/22] magnesium 250 mg tablet 250 mg PO DAILY 08/12/22 [History Confirmed 12/01/22] venlafaxine 150 mg capsule,extended release 24 hr 150 mg PO QAM #90 caps 09/04/22 [Rx Confirmed 12/01/22] rosuvastatin 5 mg tablet 5 mg PO DAILY #90 tabs 10/03/22 [Rx Confirmed 12/01/22] clonazepam 1 mg tablet 1 mg PO TID #90 tabs 10/22/22 [Rx Confirmed 12/01/22] venlafaxine 75 mg capsule,extended release 24 hr 75 mg PO QAM 12/01/22 [History Confirmed 12/01/22] Active Medications Albuterol (Albut/Ipratrop 3mg/0.5mg Neb 3 Ml Vial) 3 ml INH Q4H PRN PRN Reason: Dyspnea Stop: 01/01/23 02:02 Dextrose (Dextrose 50% 50 Ml Syringe) 25 - 50 ml IV UD PRN; Protocol PRN Reason: Hypoglycemia Protocol Stop: 01/01/23 02:37 Glucagon (Glucagon For Inj 1 Mg Vial) 1 mg SQ UD PRN; Protocol PRN Reason: Hypoglycemia Protocol Stop: 01/01/23 02:37 Glucose (Glucose 40% Gel 15 Gm Tube) 15 - 30 gm PO UD PRN; Protocol PRN Reason: Hypoglycemia Protocol Stop: 01/01/23 02:37 Glucose (Glucose 10 Tab/Tube) 4 - 8 tab PO UD PRN; Protocol PRN Reason: Hypoglycemia Treatment Stop: 01/01/23 02:37 Magnesium Sulfate/Dextrose (Magnesium Sulfate / D5w) 1 gm in 100 mls @ 50 mls/hr IV Q2H [facility] Stop: 12/02/22 03:59 Last Admin: 12/02/22 02:57 Dose: 50 mls/hr Sodium Bicarbonate 150 meq/ (Sterile Water) 1,150 mls @ 125 mls/hr IV .[id number] [facility] Stop: 01/01/23 00:14 Last Admin: 12/02/22 01:30 Dose: 125 mls/hr Propofol (Diprivan) 1,000 mg in 100 mls @ 9.264 mls/hr IV .[id number] [facility]; Protocol Stop: 12/04/22 23:44 Last Admin: 12/02/22 00:30 Dose: 20 mcg/kg/min, 9.3 mls/hr Norepinephrine Bitartrate (Levophed/D5w) 4 mg in 250 mls @ 14.475 mls/hr IV .[id number] [facility]; Protocol Stop: 01/01/23 00:44 Last Titration: 12/02/22 02:45 Dose: 0.1 mcg/kg/min, 29 mls/hr Pantoprazole Sodium 40 mg/ (Syringe) 10 mls @ 5 mls/min IV DAILY@1100 [facility] Stop: 01/01/23 10:59 Cefepime HCl 1,000 mg/ Syringe 10 mls @ 5 mls/min IV Q12H [facility]; Protocol Stop: 12/09/22 02:59 Calcium Gluconate 1,000 mg/ (Sodium Chloride) 60 mls @ 240 mls/hr IV 0300 ONE Stop: 12/02/22 03:14 Miscellaneous ([facility] Protocol For Hyperglycemia) 1 each N/A ACHS [facility] Stop: 12/04/22 07:29 Miscellaneous ([facility] Electrolyte Replacement Protocol) 1 each N/A BID@06,18 [facility]; Protocol Stop: 12/09/22 05:59 Miscellaneous (Carbohydrates For Hypoglycemia ) 15 - 30 gm PO UD PRN PRN Reason: Hypoglycemia Protocol Stop: 01/01/23 02:37 Miscellaneous Information (Pharmacist Discharge Med Rec Consult) 1 each N/A UD PRN PRN Reason: Consult Stop: 01/01/23 01:28 Miscellaneous Information (Nursing To Pharmacy Communication) 1 each N/A TODAY [facility] Stop: 01/01/23 02:29 Propofol (Propofol Bolus From Bag) 20 mg IV Q5M PRN PRN Reason: Sedation Stop: 12/04/22 23:57 ECG Additional Comments: Normal sinus rhythm Possible Left atrial enlargement Incomplete right bundle branch block Left anterior fascicular block Left ventricular hypertrophy with repolarization abnormality Inferior infarct (cited on or before 01-DEC-2022) Abnormal ECG When compared with ECG of 12-AUG-2022 11:12, T wave inversion no longer evident in Inferior leads ... Coding Level of Care Code Critical Care 1st 30-74 mins Diagnoses Acute respiratory failure with hypoxia J96.01 Right lower lobe pneumonia J18.9 Pneumonia type: due to unspecified organism Acute renal failure N17.9 Acute renal failure type: unspecified Acute hyperkalemia E87.5 Lactic acidosis E87.20 Elevated troponin R77.8 History of bilateral breast cancer Z85.3 Regular alcohol consumption Z78.9 Shock circulatory R57.9 (1) Acute renal failure Acute renal failure type: unspecified Qualified Code(s): N17.9 - Acute kidney failure, unspecified (2) Right lower lobe pneumonia Pneumonia type: due to unspecified organism Qualified Code(s): J18.9 - Pneumonia, unspecified organism
[2022-12-02] MEDS ORDERED: MIDAZOLAM HCL 5 MG/ML 1 ML VIAL ONE (01:15)
[2022-12-02] MEDS ORDERED: PHARMACIST DISCHARGE MED REC CONSULT PRN (01:29)
[2022-12-02] MEDS: SODIUM BICARBONATE 8.4% 150 MEQ in WATER, STERILE 1,000 ML IV SCH ×3 (01:30→19:26)
[2022-12-02 01:36] LABS: BUN Creatinine Ratio 11.5 (10-20); Calcium 5.3 mg/dl (8.5-10.1); Creatinine Clr Calc Pharmacy 13.5 ml/min; Est GFR (African American) 11.8 ml/min; Est GFR (Non-African American) 10.2 ml/min; Potassium 4.3 mmol/L (3.5-5.1)
[2022-12-02] MEDS ORDERED: MIDAZOLAM HCL 5 MG/ML 1 ML VIAL IV STA (02:03)
[2022-12-02] MEDS ORDERED: NORMOSOL-R 500 ML IV ONE (02:11)
[2022-12-02] MEDS ORDERED: Nursing to Pharmacy Communication SCH (02:30)
--- NOTE | 2022-12-02 02:35 | Procedure Note ---
Procedure Note Date of Service December 02, 2022 Note ARTERIAL LINE PROCEDURE NOTE: Procedure: Arterial Line Placement Proceduralist: Prakash APARICIO ([facility]) Attending: Dr. Jewell Indication: Monitoring on Pressors Anesthesia: [X]None/ X Verbal consent from son obtained secondary to urgency of procedure with persistent hypotension and hypoxia Allens test was performed to ensure adequate perfusion. Patients RIGHT wrist was prepped and draped in the usual sterile fashion. Ultrasound guidance was used to aid needle placement. A 20g Arrow arterial line was introduced into the RIGHT RADIAL artery. Catheter was threaded with appropriate flash, and the needle was removed with brisk spurting blood return. Pressure tubing was attached. Good waveform was observed. The patient tolerated the procedure well. Blood Loss: Minimal Complications: None Procedural Ultrasound Guidance: Procedure Date: 02Dec2022 Indication: Direct visualization of placment of arterial line Proceduralist: Prakash APARICIO ([facility]) Attending: Dr. Jewell Artery Identified: YES Line confirmed in Artery with ultrasound: YES Complications: NONE Patient tolerated procedure: WELL Coding
--- NOTE | 2022-12-02 02:36 | Procedure Note ---
Procedure Note Date of Service December 02, 2022 Note INTERNAL JUGULAR CENTRAL LINE PROCEDURE NOTE: Procedure: RIGHT Groin Central Line Placement Proceduralist: Prakash APARICIO ([facility]) Attending: Dr. Jewell Indication: Central Drug Administration, Poor Venous Access, Multiple Lab Draws Necessary, etc. Anesthesia: X None Verbak Consent obtained from son secondary to urgency of procedure requiring escalating vasopressor requirements. risks, and benefits were explained at [facility]. Patient's right groin was cleansed and draped in the typical sterile fashion using Chloraprep. The Right Femoral Vein and Femoral Artery were identified using ultrasound. Under direct visualization, the right femoral vein was cannulated using an introducer needle on a syringe. Good venous blood return was maintained prior to removal of syringe from introducer needle. Using Seldinger Technique, a guide wire was advanced through the introducer needle without resistance. The introducer needle was removed and ultrasound images were obtained of the guide wire within the RIGHT FEMORAL Vein. A small incision was made in penetrating fashion at the guide wire insertion site utilizing an 11 blade scalpel. The dilator was advanced to the vessel without resistance. The dilator was exchanged for the triple lumen catheter which was advanced into the vessel without resistance. The guide wire was removed intact from the catheter without issue. Claves were placed on each catheter tip with confirmation of good blood flow from each lumen. Each port was easily flushed with sterile saline. The catheter was placed at 20 cm and sutured in place. BioPatch was applied to the catheter and a sterile Tegaderm dressing was applied over the catheter with careful attention to sterility. Patient tolerated procedure well. No immediate complications were met. Line ready for immediate use Procedural Ultrasound Guidance: Procedure Date: 02Dec2022 Indication: Direct visualization for central line placement Proceduralist: Prakash APARICIO ([facility]) Attending: Dr. Tian Artery AND Vein visualized: YES Compressible Vein: YES Guidewire or Short Catheter seen in vein prior to dilation: YES Coding
[2022-12-02] MEDS ORDERED: GLUCAGON FOR INJ 1 MG VIAL SQ PRN (02:38)
[2022-12-02] MEDS ORDERED: DEXTROSE 50% 50 ML SYRINGE IV PRN (02:38)
[2022-12-02] MEDS ORDERED: GLUCOSE 10 TAB/TUBE PO PRN (02:38)
[2022-12-02] MEDS ORDERED: GLUCOSE 40% GEL 15 GM TUBE PO PRN (02:38)
[2022-12-02] MEDS ORDERED: CARBOHYDRATES FOR HYPOGLYCEMIA PO PRN (02:38)
--- NOTE | 2022-12-02 02:49 | Billing Data ---
Date of Service December 02, 2022 Coding Level of Care Code Critical Care 12 23- mins
[2022-12-02] MEDS: MAGNESIUM SULFATE / D5W 1 GM/100 ML BAG IV SCH ×5 (02:57→22:35)
[2022-12-02] MEDS ORDERED: CALCIUM GLUCONATE 10% 1,000 MG in SODIUM CHLORIDE 0.9% 50 ML IV ONE (03:00)
[2022-12-02] MEDS ORDERED: ALBUTEROL 0.083% NEBU SOLN 3 ML VIAL NEB PRN (03:37)
[2022-12-02 05:14] LABS: Hematocrit (blood only) 27.3 % (34.1-44.9); Hemoglobin 9.4 g/dl (12.0-16.0); Immature Granulocytes # (auto) 0.06 K/uL (0.00-0.02); Immature Granulocytes % (auto) 1.2 %; Lymphocytes # (auto) 0.26 K/uL (1.2-3.4); Mean Corpuscular Hgb Conc 34.4 g/dL (32.0-36.0); Mean Corpuscular Volume 113.3 fL (80.0-100.0); Mean Platelet Volume 10.9 fL (9.4-12.3); Monocytes # (auto) 0.37 K/uL (0.24-0.82); Monocytes % (auto) 7.2 %; Neutrophils # (auto) 4.46 K/uL (1.4-6.5); Neutrophils % (auto) 86.6 %; Nucleated RBC # (auto) 0.49 K/uL (0-0); Nucleated RBC % (auto) 9.5 %; Platelet Count 152 K/uL (130-400); RDW Coefficient of Variation 15.3 % (11.5-14.5); RDW Standard Deviation 63.1 fL (36.4-46.3); Red Blood Count 2.41 M/uL (3.93-5.22); White Blood Count 5.15 K/ul (4.8-10.8)
[2022-12-02 05:32] LABS: Macrocytosis Present; Polychromasia 1+
[2022-12-02 05:47] LABS: iSTAT Arterial Blood Gas HCO3 17 meg/L (19-24); iSTAT Arterial Blood Gas pCO2 30 mmHg (35-46); iSTAT Arterial Blood Gas pH 7.35 (7.35-7.45); iSTAT Arterial Blood Gas pO2 243 mmHg (80-95); iSTAT Carbon Dioxide 18 mmol/L (24-31); iSTAT FiO2 60 %; iSTAT Site Art Line
[2022-12-02 05:50] LABS: Albumin Globulin Ratio 1.1 (0.9-2); Albumin Level 3.3 gm/dl (3.4-5.0); BUN Creatinine Ratio 12.3 (10-20); Bilirubin,Total 1.3 mg/dl (0.2-1.0); Calcium 5.5 mg/dl (8.5-10.1); Creatinine Clr Calc Pharmacy 12.9 ml/min; Est GFR (African American) 12.1 ml/min; Est GFR (Non-African American) 10.5 ml/min; Magnesium 1.7 mg/dl (1.7-2.4); Phosphorus 6.2 mg/dl (2.5-4.9); Potassium 4.4 mmol/L (3.5-5.1); Total Protein 6.3 gm/dl (6.0-8.3)
[2022-12-02] MEDS: NOREPINEPHRINE/D5W 4 MG/250 ML PLCT IV SCH (05:53)
[2022-12-02] MEDS ORDERED: ICU ELECTROLYTE REPLACEMENT PROTOCOL SCH ×2 (06:00)
[2022-12-02] MEDS: ICU Protocol for HYPERglycemia SCH ×4 (07:00→20:45)
--- NOTE | 2022-12-02 07:58 | CT Scan Report ---
CT OF THE CERVICAL SPINE WITHOUT CONTRAST CLINICAL HISTORY: Altered mental status. COMPARISON STUDY: PET/CT August 07, 2022. TECHNIQUE: Helical axial images of the cervical spine were obtained without IV contrast. Sagittal a nd coronal reconstructions were viewed. Automated exposure control was utilized for the study. A do se lowering technique was utilized adhering to the principles of ALARA. FINDINGS: The bilateral mastoid air cells are largely opacified. Endotracheal tube is partially image d. Bilateral pleural effusions and interlobular septal thickening with groundglass opacities are bett er depicted on the chest CT which will be reported separately. There is reversal of the cervical lord osis. No acute cervical spine fracture is present. A small amount of prevertebral edema is noted. Thi s is nonspecific. Moderate multilevel degenerative changes within the cervical spine are present. IMPRESSION: 1. No acute cervical spine fracture or subluxation. 2. Small amount of prevertebral edema, a nonspecific finding. 3. Moderate multilevel degenerative changes within the cervical spine. 4. Bilateral mastoid effusions. ACT 112: Negative or not required by law. Electronically signed by: Hakeem Rico M.D. 12/02/2022 7:56 AM
--- NOTE | 2022-12-02 08:19 | XRay Report ---
XR chest 1V portable CLINICAL HISTORY: Sepsis TECHNIQUE: Single frontal radiograph of the chest was obtained. Comparison: Comparison is made to chest radiograph 08/12/2022 and CTA chest 08/12/2022 FINDINGS: Enteric tube terminates 4.5 cm from the raghu. Cardiomegaly is noted. The lungs are clear. No eviden ce of pleural effusion or pneumothorax. IMPRESSION: Cardiomegaly without evidence of pneumonia. ACT 112: Negative or not required by law. Electronically signed by: Joseph Longoria M.D. 12/02/2022 8:17 AM
--- NOTE | 2022-12-02 08:26 | CT Scan Report ---
CT ANGIOGRAPHY OF THE CHEST, PULMONARY EMBOLUS PROTOCOL CLINICAL HISTORY: Shortness of breath. Altered mental status. Evaluate for pulmonary embolus. COMPARISON STUDY: Chest CT August 12, 2022 and chest radiograph December 01, 2022. TECHNIQUE: Following IV administration of 113 mL of Optiray, helical axial images of the chest were o btained utilizing the pulmonary embolus protocol. Maximal intensity projections and sagittal and cor onal reformats were viewed on an independent 3D workstation. IV contrast was administered without co mplication. Automated exposure control was utilized for the study. A dose lowering technique was ut ilized adhering to the principles of ALARA. CT DOSE: 1656.15 mGy.cm FINDINGS: No pulmonary emboli are identified although the segmental and subsegmental pulmonary arter ies are suboptimally assessed on this exam. There is moderate cardiomegaly. Preferential dilatation o f the right heart chambers is noted with straightening of the interventricular septum. IVC and hepati c veins are distended. There is reflux of contrast. There is no pericardial effusion. No pneumothorax is present. There is a small right pleural effusion. Moderate right lower lobe airspace opacity is n oted. There are additional biapical opacities. Interlobular septal thickening is present. Central air ways are patent. Trace perihepatic ascites is noted. There is moderate upper abdominal stranding. Thi s could be due to volume overload. IMPRESSION: 1. No pulmonary emboli identified although segmental and subsegmental pulmonary arteries suboptimally assessed due to respiratory motion. 2. Cardiomegaly with preferential dilatation of the right heart chambers, straightening of the interv entricular septum and reflux of contrast into the IVC and hepatic veins which are distended. The find ings suggest right heart dysfunction/elevated right heart pressures. 3. Small right pleural effusion with moderate right lower lobe airspace opacity. This likely reflects pneumonia. A pulmonary infarct could have this imaging appearance however no pulmonary emboli are id entified. If persistent clinical suspicion for pulmonary emboli, lower extremity venous ultrasound co uld be obtained. 4. Mild pulmonary edema. ACT 112: Negative or not required by law. Electronically signed by: Hakeem Rico M.D. 12/02/2022 8:24 AM
--- NOTE | 2022-12-02 08:31 | CT Scan Report ---
CT head/brain wo con CLINICAL HISTORY: ams Technique: Contiguous axial CT images of the head were acquired from the base of the skull to the manny ericka without intravenous contrast administration. Images were viewed in brain, subdural and bone windo ws. Automated dose lowering techniques and/or adjustment according to patient size were utilized for this exam. Comparison: Comparison is made to CT head 02/11/2022 Findings: The ventricles, basal cisterns, and cerebral sulci are normal. There is no acute intracranial hemorrh age or evidence of acute territorial infarction. Neither mass effect, shift of the midline structures , nor abnormal extra-axial fluid collections are shown. There is opacification of the bilateral mastoid air cells, new from prior exam. The orbits appear nor mal. There are no acute fractures of the calvaria or scalp swelling. Impression: 1. No acute intracranial hemorrhage, no evidence of acute territorial infarction or other acute intr acranial disease process. 2. New bilateral mastoid effusion compatible with mastoiditis. ACT 112: Negative or not required by law. Electronically signed by: Joseph Longoria M.D. 12/02/2022 8:29 AM
--- NOTE | 2022-12-02 08:37 | Nephrology Consultation ---
Date of Consultation December 02, 2022 Assessment & Plan (1) Acute renal failure: (2) Right lower lobe pneumonia: (3) Acute respiratory failure with hypoxia: (4) Shock circulatory: (5) Rhabdomyolysis: Plan Oliguric ARNALDO, likely ATN due to pneumonia/septic shock/rhabdomyolysis in the setting of ARB therapy. Agree w/ holding ARB, providing pressor support/mechanical ventilation and antibiotic therapy. ICU team has corrected serum potassium. NaHCO3 gtt is being provided to correct metabolic acidosis. Patient is currently ventilating well on 30% FiO2. Plan of care discussed w/ ICU team this morning. Suspect renal recovery will be a prolonged process. Recommend continuing w/ IV hydration and bicarbonate supplementation. HD may be difficult at this time due to hemodynamic instability but could be offered to help correct metabolic acidosis. ICU attending wishes to speak with family today before escalating care. Patient does currently have multiorgan failure and family may wish to consider conversion to palliative care. History of Present Illness Reason for Consultation: Oliguric ARNALDO w/ hyperkalemia, ZEV in the setting of septic shock and respiratory failure requiring mechanical ventilation and pressor support Attending Physician: Giovanni Gonzales History of Present Illness Ms. James is a 72 year old white female who is seen at the request of the ICU team for evaluation of oliguric ARNALDO and metabolic acidosis in the setting of septic shock. Ms. James is currently mechanically ventilated on sedatives and pressor support. Medical records in the EMR were reviewed today and are summarized as follows: Ms. James has bilateral breast CA s/p chemo & rad therapy, breast CA has metastasized to bone, AODM, HTN and OA. She was brought to [facility] last evening after her family found her lying on the floor w/ labored respirations and mottled extremities. On presentation, SaO2 60%, SBP 70's, K 6.0. Patient was intubated, mechanical ventilation and pressor support provided. Hyperkalemia was managed medically. CXR revealed a RLL infiltrate. IV Cefepime has been started. Since admission to ICU, CPK 881, Cr 4.2, CO2 14, Ca 5.5, albumin 3.3, AST 1173, lactate 5.4. Allergies Allergy/AdvReac Type Severity Reaction Status Date / Time fentanyl AdvReac Severe Hallucinati Verified 08/26/22 08:14 on Home Medications Medication Instructions Recorded Confirmed Type cholecalciferol (vitamin D3) 50 50 mcg PO QAM 01/06/22 12/01/22 History mcg (2,000 unit) capsule acetaminophen 325 mg tablet 650 mg PO Q6H PRN pain, mild 02/08/22 12/01/22 History anastrozole 1 mg tablet 1 mg PO QAM 02/08/22 12/01/22 History multivitamin with minerals 1 cap PO QAM 02/08/22 12/01/22 History losartan 100 mg tablet 100 mg PO QAM #90 tabs 05/30/22 12/01/22 Rx metoprolol succinate 100 mg 100 mg PO QAM #90 tabs 07/23/22 12/01/22 Rx tablet,extended release 24 hr omeprazole 20 mg capsule,delayed 20 mg PO QAM #90 caps 07/23/22 12/01/22 Rx release Ibrance 1 dose PO UD 08/12/22 08/26/22 History calcium carbonate 600 mg-vitamin 1 tab PO QAM 08/12/22 12/01/22 History D3 10 mcg (400 unit) tablet (Calcium 600 + D(3)) gabapentin 600 mg tablet 600 mg PO QAM 08/12/22 12/01/22 History hydromorphone 8 mg tablet 4 mg PO Q4 PRN Pain, Severe 08/12/22 12/01/22 History magnesium 250 mg tablet 250 mg PO DAILY 08/12/22 12/01/22 History venlafaxine 150 mg 150 mg PO QAM #90 caps 09/04/22 12/01/22 Rx capsule,extended release 24 hr rosuvastatin 5 mg tablet 5 mg PO DAILY #90 tabs 10/03/22 12/01/22 Rx clonazepam 1 mg tablet 1 mg PO TID #90 tabs 10/22/22 12/01/22 Rx venlafaxine 75 mg capsule,extended 75 mg PO QAM 12/01/22 12/01/22 History release 24 hr Patient History Medical History Acute alteration in mental status Bilateral breast cancer [id number]--sx/chemo/radiation Breast cancer metastasized to bone 2021 Cancer related pain [facility] who has been managing patient's complex cancer pain with Methadone 5mg TID + prn D ilaudid oral. it is noted that pt has h/o ETOH abuse and ?opioid misuse. Her son reportedly struggles with substance abuse and there have been several early requests for opioids, raising the concern someone else is taking her meds. 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 Osteoarthritis Pain of right lower extremity Palliative care encounter Type II diabetes mellitus Vitamin D deficiency Surgical History H/O tubal ligation History of appendectomy History of section History of colonoscopy History of esophagogastroduodenoscopy (EGD) History of left breast biopsy malignant History of lumpectomy of both breasts x2 History of right breast biopsy malignant History of tooth extraction History of wisdom tooth extraction Hx laparoscopic cholecystectomy (08/13/22) Laparoscopic Cholecystectomy - Alexandro Alvarez, DO, FACS Status post correction of deviated nasal septum Family History Grandmother (Maternal) AAA (abdominal aortic aneurysm) Family history of diabetes mellitus Mother No problems noted. 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 Children do You have: 1 Other Information That Helps Us Care for You: No Feels Safe at Home: Yes Safety Concerns: Feels Safe At This Time Seatbelt Use: always Sunscreen Use: Yes Assistive Devices: None Review of Systems Review of Systems: Unobtainable due to endotracheal tube Physical Exam Constitutional: + ill appearing ENMT: orotracheal tube in place Neck: trachea midline, no thyromegaly Respiratory: coarse BS bilaterally Cardiovascular: RRR, no murmur, no edema Gastrointestinal (Abdomen): Inspection/Auscultation: abdomen normal to inspection and + hypoactive bowel sounds Neurologic: sedated Results & Data ([facility]) Vital Signs (Past 12 Hours) Vital Signs Temp Pulse Pulse Resp BP BP Pulse Ox 12/02/22 07:22 65 22 96 12/02/22 06:00 37.5 C 64 22 105/71 99 12/02/22 05:30 105/67 12/02/22 04:00 12/02/22 02:03 68 12/02/22 05:30 37.5 C 64 22 99 12/02/22 05:00 37.4 C 63 22 99 12/02/22 04:30 37.3 C 62 22 103/68 98 12/02/22 04:03 37.2 C 60 22 86/64 L 99 12/02/22 04:00 37.2 C 60 22 86/63 L 98 12/02/22 03:20 59 L 22 100 12/02/22 02:03 12/02/22 03:30 37.1 C 58 L 22 100/72 100 12/02/22 03:00 36.9 C 58 L 22 110/69 100 12/02/22 02:24 36.9 C 60 22 127/83 100 12/02/22 02:00 59 L 22 100 12/02/22 01:30 62 22 149/98 H 100 12/02/22 01:15 36.8 C 64 20 156/100 H 100 12/02/22 00:30 72 23 100 12/02/22 00:30 69 158/106 H 12/02/22 00:20 71 22 100 12/02/22 00:20 163/108 H 12/01/22 22:35 22 12/01/22 22:30 22 100 12/01/22 22:25 96 H 22 100 12/02/22 00:11 70 146/100 H 100 12/02/22 00:11 70 21 100 12/02/22 00:10 70 23 100 12/02/22 00:00 71 23 100 12/02/22 00:00 166/96 H 12/01/22 23:51 132/88 12/01/22 23:51 73 23 100 12/01/22 23:50 74 16 100 12/01/22 23:41 74 22 12/01/22 23:41 142/107 H 12/01/22 23:40 68 22 95 12/01/22 23:36 94/66 L 12/01/22 23:36 62 24 12/01/22 23:30 64 22 12/01/22 23:30 74/56 L 12/01/22 23:27 67 22 91 12/01/22 23:27 86/71 L 12/01/22 23:24 92 12/01/22 23:01 88 22 12/01/22 23:01 113/79 12/01/22 23:00 90 22 12/01/22 23:26 37.1 C 67 22 86/71 L 93 12/01/22 23:14 80 L 12/01/22 22:06 37.4 C 68 12 82/63 L 66 L O2 Del Method O2 Flow Rate FiO2 12/02/22 07:22 30 12/02/22 06:00 Mechanical Vent 30 12/02/22 05:30 12/02/22 04:00 30 12/02/22 02:03 12/02/22 05:30 12/02/22 05:00 12/02/22 04:30 12/02/22 04:03 12/02/22 04:00 12/02/22 03:20 60 12/02/22 02:03 Mechanical Vent 30 12/02/22 03:30 12/02/22 03:00 12/02/22 02:24 12/02/22 02:00 12/02/22 01:30 12/02/22 01:15 Mechanical Vent 12/02/22 00:30 Mechanical Vent 12/02/22 00:30 12/02/22 00:20 Mechanical Vent 12/02/22 00:20 12/01/22 22:35 50 12/01/22 22:30 Mechanical Vent 50 12/01/22 22:25 100 12/02/22 00:11 Mechanical Vent 12/02/22 00:11 Mechanical Vent 12/02/22 00:10 12/02/22 00:00 Mechanical Vent 12/02/22 00:00 12/01/22 23:51 12/01/22 23:51 Mechanical Vent 12/01/22 23:50 Mechanical Vent 12/01/22 23:41 12/01/22 23:41 12/01/22 23:40 Mechanical Vent 100 12/01/22 23:36 12/01/22 23:36 12/01/22 23:30 12/01/22 23:30 12/01/22 23:27 Mechanical Vent 12/01/22 23:27 12/01/22 23:24 Mechanical Vent 12/01/22 23:01 12/01/22 23:01 12/01/22 23:00 12/01/22 23:26 Mechanical Vent 12/01/22 23:14 Mechanical Vent, Non-rebreather 15 12/01/22 22:06 Room Air Laboratory Results Laboratory Tests 02/25/22 07/11/22 11/06/22 05:28 14:56 15:17 WBC Hgb Hct Plt Count Sodium Potassium Chloride Carbon Dioxide BUN Creatinine 1.41 H D 1.57 H 1.57 H Urine Color Urine Appearance Ur Specific [place] Urine Protein Urine Glucose (UA) Urine Blood Urine Nitrite Ur Leukocyte Esterase Urine RBC (Auto) 12/01/22 12/01/22 12/02/22 22:21 Unknown 00:42 WBC Hgb Hct Plt Count Sodium Potassium Chloride Carbon Dioxide BUN Creatinine 4.21 H 4.16 H Urine Color Dark Yellow Urine Appearance Cloudy A Ur Specific [place] 1.017 Urine Protein 3+ H Urine Glucose (UA) Negative Urine Blood Trace H Urine Nitrite Negative Ur Leukocyte Esterase Negative Urine RBC (Auto) 0-4 12/02/22 12/02/22 04:56 04:56 WBC 5.15 Hgb 9.4 L Hct 27.3 L Plt Count 152 Sodium 139 Potassium 4.4 Chloride 104 Carbon Dioxide 14 L BUN 50 H Creatinine 4.07 H Urine Color Urine Appearance Ur Specific [place] Urine Protein Urine Glucose (UA) Urine Blood Urine Nitrite Ur Leukocyte Esterase Urine RBC (Auto) PG Care Time/CCT Total # of Minutes Spent Total Time Spent with Patient: Total time spent is greater than 50% in coordination of care (as documented) at patient's floor/unit and/or counseling patient: Coding Level of Care Code INP/OBS CONSULT LVL 5, 80 MIN Diagnoses Acute renal failure N17.9 Acute renal failure type: unspecified Right lower lobe pneumonia J18.9 Pneumonia type: due to unspecified organism Acute respiratory failure with hypoxia J96.01 Shock circulatory R57.9 Rhabdomyolysis M62.82 Rhabdomyolysis type: non-traumatic (1) Acute renal failure Acute renal failure type: unspecified Qualified Code(s): N17.9 - Acute kidney failure, unspecified (2) Right lower lobe pneumonia Pneumonia type: due to unspecified organism Qualified Code(s): J18.9 - Pneumonia, unspecified organism (3) Rhabdomyolysis Rhabdomyolysis type: non-traumatic Qualified Code(s): M62.82 - Rhabdomyolysis
[2022-12-02] MEDS ORDERED: CALCIUM CHLORIDE 10% 1,000 MG in DEXTROSE 5% 50 ML IV STA ×2 (09:09→09:25)
[2022-12-02] MEDS ORDERED: Heparin IV Adult Wt-Based Standard WITH Bolus Protocol IV STA (09:26)
[2022-12-02] MEDS ORDERED: HEPARIN SOD (PORCINE) 1000 UNIT/ML IV ONE (09:45)
--- NOTE | 2022-12-02 09:54 | Palliative Care Consultation ---
Date of Consultation December 02, 2022 Assessment & Plan (1) Palliative care encounter: For Oncology Patients: Patient's Palliative Prognostic Score (PaP) Score = 12 points/Interpretation: 30-day survival probability <30% (0 - 5.5: 30-day survival probability >70% | 5.6 - 11.0: 30-day survival probability 30-70% | 11.1 - 17.5: 30-day survival probability <30%); [email or web address] Patient's Palliative Prognostic Index (PPI) Score = 10 points/Note: If the PPI is greater than 6.0, survival is less than three weeks (Sensitivity - 80%; Specificity - 85%). [email or web address] (2) Cancer related pain: Patient was on home regimen of Methadone 5mg TID + Dilaudid prn BTP. This has been stable dosing for a few months, managed by [facility]. Patient is a daily ETOH consumer, quantity undefined. Her current EKG today demonstrates QT/QTc 572/590 ms. her EKG yesterday had QT/QTc 406/504 ms. An EKG done Jul 2022 reported QT Int : 454 ms and QTc Int : 493 ms Methadone is currently on hold. Patient is receiving scheduled and as needed IV Dilaudid. It is possible that her diaphoresis may be withdrawal related. Her prior to admission dose was methadone 5 mg p.o. 3 times daily. This is roughly equivalent to 60 oral morphine equivalents which is approximately 12 mg of oral Dilaudid. This is her baseline equivalent Dilaudid dose per day not inclusive of her as needed oral Dilaudid use which is not quantified. Patient's son who is at the bedside is unable to tell me how many doses of as needed Dilaudid she took per day. He reported to staff previously that he did not believe she was taking her methadone actively. He also shares that she is a regular alcohol consumer and had likely been drinking heavier than usual while in the company of her sister. These combined factors may be contributing to her withdrawal. Additionally, this case was discussed with Dr Miller who has been managing patient's complex cancer pain with Methadone 5mg TID + prn Dilaudid oral. it is noted that pt has h/o ETOH abuse and ?opioid misuse and concerns of diversion; for these reasons, methadone was chosen for her severe cancer pain. Her son reportedly struggles with substance abuse and there have been several early requests for opioids, raising the concern someone else is taking her meds. (3) Discussion about advance care planning held with family member: Met with pt son at bedside, Mr. Hester, x 25min face to face at pt bedside. pt is unable to participate due to intubation, sedation and resp failure. He shares pt was spending some time with her sister, approx 20min from pt home. She had been with sister a few days. Son had not seen her for close to a week, had a few text exchanges. He states she had likely been drinking with his aunt as the aunt shared pt was "asleep on the floor for almost 2 days" and upon hearing this was day 2, son told aunt to call 911. Pt had prior episode with AMS that preceded a renal failure admission. Son thought perhaps the same issue coming back. he adds that pt had recurrent breast cancer, initial dx an tx was in 2002. Son shares pt was experiencing a declining QOL and has always been clear about not wanting to live dependent on others or machines. He would not prolong life support, knowing it is what his mother wanted for herself. This is confirmed in my discussion with Dr Miller as well, who shared that during OP Pall med clinic appt patient was clear she didn't want to linger on machines and that her son would be her surrogate decision maker in the event she was unable to make her wishes known to medical providers. I discussed concerns that she has MSOF: septic shock, LV thrombus, renal failure/may need HD, hypox resp failure on vent, along with her chronic illnesses of recurrent breast cancer, chronic ETOH, chronic opioid use for severe cancer pain mgt. Mr. Hester shares that he knows patient would not want to be in a prolonged artificial state. He feels he may have some difficult and heavy decisions awaiting him in the near future, but for now, wishes to remain hopeful and see how much improvement patient may have in the next few days. He understands that dialysis will likely be needed to try and improve her kidney function and is receptive to allow trial of this as well, adding that he hopes she does not need to be transferred elsewhere for this therapy. (4) Acute respiratory failure with hypoxia: Continue ventilator management per CCM (5) Acute renal failure: Continue management per nephrology Acute renal failure type: unspecified Qualified Code(s): N17.9 - Acute kidney failure, unspecified (6) Breast cancer metastasized to bone: Most recent oncology notes reviewed, indicating patient was tolerating therapy to date and the plan of care was to continue therapy until such time she was no longer tolerating it or receiving benefit from it or develop significant to xicities. (7) Rhabdomyolysis: Rhabdomyolysis type: non-traumatic Qualified Code(s): M62.82 - Rhabdomyolysis (8) Elevated troponin: (9) Shock circulatory: (10) Regular alcohol consumption: Plan Palliative prognostics are overall poor but may be confounded by concurrent septic shock, would recalculate these after a trial of HD if that is pursued. Son is her HCP. He has a reasonable understanding of her issues, and his awareness of her ACP wishes are aligned with what pt had shared with her OP pall med team. Son would like to se if current treatments will help. I discussed with him there could be worsening in spite of escalated therapies: if this happens, then it is a sign she is transitioning from a process of living to a process of dying, and I would not recommend CPR and other aggressive interventions - he verbalized understanding and wanted some time to think about everything. We agreed to follow up tomorrow. I have updated nursing and CCM. History of Present Illness Reason for Consultation: Goals of care Attending Physician: Giovanni Gonzales History of Present Illness 72yo female with met breast ca to bone, severe cancer pain managed by [facility]/Dr Miller. Admitted from home with AMS, encephalopathy, hypoxia and hypotension. Intubated in ED +septic shock, CT suggests source may be pulm. She is also +ARF +/- rhabdo, perhaps renal source. Case discussed with Dr Miller who has been managing patient's complex cancer pain with Methadone 5mg TID + prn Dilaudid oral. it is noted that pt has h/o ETOH abuse and ?opioid misuse. Her son reportedly struggles with substance abuse and there have been several early requests for opioids, raising the concern someone else is taking her meds. Patient is seen at bedside, her son is present. She is not able to respond or follow commands. She is intubated and sedated. She is lying semireclined in bed, critically ill-appearing history obtained from son, chart review and discussion with providers. Allergies Allergy/AdvReac Type Severity Reaction Status Date / Time fentanyl AdvReac Severe Hallucinati Verified 08/26/22 08:14 on Home Medications Medication Instructions Recorded Confirmed Type cholecalciferol (vitamin D3) 50 50 mcg PO QAM 01/06/22 12/01/22 History mcg (2,000 unit) capsule acetaminophen 325 mg tablet 650 mg PO Q6H PRN pain, mild 02/08/22 12/01/22 History anastrozole 1 mg tablet 1 mg PO QAM 02/08/22 12/01/22 History multivitamin with minerals 1 cap PO QAM 02/08/22 12/01/22 History losartan 100 mg tablet 100 mg PO QAM #90 tabs 05/30/22 12/01/22 Rx metoprolol succinate 100 mg 100 mg PO QAM #90 tabs 07/23/22 12/01/22 Rx tablet,extended release 24 hr omeprazole 20 mg capsule,delayed 20 mg PO QAM #90 caps 07/23/22 12/01/22 Rx release Ibrance 1 dose PO UD 08/12/22 08/26/22 History calcium carbonate 600 mg-vitamin 1 tab PO QAM 08/12/22 12/01/22 History D3 10 mcg (400 unit) tablet (Calcium 600 + D(3)) gabapentin 600 mg tablet 600 mg PO QAM 08/12/22 12/01/22 History hydromorphone 8 mg tablet 4 mg PO Q4 PRN Pain, Severe 08/12/22 12/01/22 History magnesium 250 mg tablet 250 mg PO DAILY 08/12/22 12/01/22 History venlafaxine 150 mg 150 mg PO QAM #90 caps 09/04/22 12/01/22 Rx capsule,extended release 24 hr rosuvastatin 5 mg tablet 5 mg PO DAILY #90 tabs 10/03/22 12/01/22 Rx clonazepam 1 mg tablet 1 mg PO TID #90 tabs 10/22/22 12/01/22 Rx venlafaxine 75 mg capsule,extended 75 mg PO QAM 12/01/22 12/01/22 History release 24 hr Patient History Medical History Acute alteration in mental status Bilateral breast cancer [id number]--sx/chemo/radiation Breast cancer metastasized to bone 2021 Cancer related pain Case discussed with Dr. Miller/[facility], who has been managing patient's complex cancer pain with Methadone 5mg TID + prn Dilaudid oral. it is noted that pt has h/o ETOH abuse and ?opioid misuse. Her son reportedly struggles with substance abuse and there have been several early requests for opioids, raising the concern someone else is taking her meds. 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/no sawyer cork slabs Osteoarthritis Pain of right lower extremity Palliative care encounter Type II diabetes mellitus Vitamin D deficiency Surgical History H/O tubal ligation History of appendectomy History of section History of colonoscopy History of esophagogastroduodenoscopy (EGD) History of left breast biopsy malignant History of lumpectomy of both breasts x2 History of right breast biopsy malignant History of tooth extraction History of wisdom tooth extraction Hx laparoscopic cholecystectomy (08/13/22) Laparoscopic Cholecystectomy - Alexandro Alvarez DO, FACS Status post correction of deviated nasal septum Family History Grandmother (Maternal) AAA (abdominal aortic aneurysm) Family history of diabetes mellitus Mother No problems noted. 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 She is sedated and does not respond to commands. There is no JVD noted. Lungs with scattered rhonchi and overall diminished breath sounds. Heart tones are somewhat distant, + tachycardic. Abdomen is distended and protuberant. There is somewhat firm to palpation. There is no guarding. I was not able to appreciate a pulsatile liver. Bowel sounds are diminished. There is generalized weakness. She is unable to follow commands. Skin color is pale and diaphoretic. Results & Data ([facility]) Vital Signs (Past 12 Hours) Vital Signs Temp Pulse Pulse Resp BP BP Pulse Ox 12/02/22 08:00 12/02/22 07:22 65 22 96 12/02/22 06:00 37.5 C 64 22 105/71 99 12/02/22 05:30 105/67 12/02/22 04:00 12/02/22 02:03 68 12/02/22 05:30 37.5 C 64 22 99 12/02/22 05:00 37.4 C 63 22 99 12/02/22 04:30 37.3 C 62 22 103/68 98 12/02/22 04:03 37.2 C 60 22 86/64 L 99 12/02/22 04:00 37.2 C 60 22 86/63 L 98 12/02/22 03:20 59 L 22 100 12/02/22 02:03 12/02/22 03:30 37.1 C 58 L 22 100/72 100 12/02/22 03:00 36.9 C 58 L 22 110/69 100 12/02/22 02:24 36.9 C 60 22 127/83 100 12/02/22 02:00 59 L 22 100 12/02/22 01:30 62 22 149/98 H 100 12/02/22 01:15 36.8 C 64 20 156/100 H 100 12/02/22 00:30 72 23 100 12/02/22 00:30 69 158/106 H 12/02/22 00:20 71 22 100 12/02/22 00:20 163/108 H 12/01/22 22:35 22 12/01/22 22:30 22 100 12/01/22 22:25 96 H 22 100 12/02/22 00:11 70 146/100 H 100 12/02/22 00:11 70 21 100 12/02/22 00:10 70 23 100 12/02/22 00:00 71 23 100 12/02/22 00:00 166/96 H 12/01/22 23:51 132/88 12/01/22 23:51 73 23 100 12/01/22 23:50 74 16 100 12/01/22 23:41 74 22 12/01/22 23:41 142/107 H 12/01/22 23:40 68 22 95 12/01/22 23:36 94/66 L 12/01/22 23:36 62 24 12/01/22 23:30 64 22 12/01/22 23:30 74/56 L 12/01/22 23:27 67 22 91 12/01/22 23:27 86/71 L 12/01/22 23:24 92 12/01/22 23:01 88 22 12/01/22 23:01 113/79 12/01/22 23:00 90 22 12/01/22 23:26 37.1 C 67 22 86/71 L 93 12/01/22 23:14 80 L 12/01/22 22:06 37.4 C 68 12 82/63 L 66 L O2 Del Method O2 Flow Rate FiO2 12/02/22 08:00 30 12/02/22 07:22 30 12/02/22 06:00 Mechanical Vent 12/02/22 05:30 12/02/22 04:00 30 12/02/22 02:03 12/02/22 05:30 12/02/22 05:00 12/02/22 04:30 12/02/22 04:03 12/02/22 04:00 12/02/22 03:20 60 12/02/22 02:03 Mechanical Vent 30 12/02/22 03:30 12/02/22 03:00 12/02/22 02:24 12/02/22 02:00 12/02/22 01:30 12/02/22 01:15 Mechanical Vent 12/02/22 00:30 Mechanical Vent 12/02/22 00:30 12/02/22 00:20 Mechanical Vent 12/02/22 00:20 12/01/22 22:35 50 12/01/22 22:30 Mechanical Vent 50 12/01/22 22:25 100 12/02/22 00:11 Mechanical Vent 12/02/22 00:11 Mechanical Vent 12/02/22 00:10 12/02/22 00:00 Mechanical Vent 12/02/22 00:00 12/01/22 23:51 12/01/22 23:51 Mechanical Vent 12/01/22 23:50 Mechanical Vent 12/01/22 23:41 12/01/22 23:41 12/01/22 23:40 Mechanical Vent 100 12/01/22 23:36 12/01/22 23:36 12/01/22 23:30 12/01/22 23:30 12/01/22 23:27 Mechanical Vent 12/01/22 23:27 12/01/22 23:24 Mechanical Vent 12/01/22 23:01 12/01/22 23:01 12/01/22 23:00 12/01/22 23:26 Mechanical Vent 12/01/22 23:14 Mechanical Vent, Non-rebreather 15 12/01/22 22:06 Room Air Laboratory Results Data reviewed Diagnostic Findings 12/01/22, Chest CTA: 1. No pulmonary emboli identified although segmental and subsegmental pulmonary arteries suboptimally assessed due to respiratory motion. 2. Cardiomegaly with preferential dilatation of the right heart chambers, straightening of the interventricular septum and reflux of contrast into the IVC and hepatic veins which are distended. The findings suggest right heart dysfunction/elevated right heart pressures. 3. Small right pleural effusion with moderate right lower lobe airspace opacity. This likely reflects pneumonia. A pulmonary infarct could have this imaging appearance however no pulmonary emboli are identified. If persistent clinical suspicion for pulmonary emboli, lower extremity venous ultrasound could be obtained. 4. Mild pulmonary edema. 12/01/22, head CT: 1. No acute intracranial hemorrhage, no evidence of acute territorial infarction or other acute intracranial disease process. 2. New bilateral mastoid effusion compatible with mastoiditis. 12/01/22, CXR: Cardiomegaly without evidence of pneumonia. 12/02/22, EKG: Normal sinus rhythm Possible Left atrial enlargement Left axis deviation Inferior infarct (cited on or before 01-DEC-2022) Possible An terolateral infarct , age undetermined Prolonged QT Abnormal ECG When compared with ECG of 01-DEC-2022 22:52, (unconfirmed) Incomplete right bundle branch block is no longer present Vent. rate 64 BPM RI interval 158 ms QRS duration 102 ms QT/QTc 572/590 ms -R-T axes 64 -60 114 PG Care Time/CCT Total # of Minutes Spent Total Time Spent: 75 Total Time Spent with Patient: Total time spent is greater than 50% in coordination of care (as documented) at patient's floor/unit and/or counseling patient: I spent 75 minutes overall addressing this complex case: 15 in medical data review/discussion with referring provider(s) and/or preparation for the visit 10 in direct interaction with the patient exam 30 Advance Care Planning/Goals of Care discussions as detailed above in note (must be >16min) with her son/HCP at bedside. Pt is unable to participate 10 in subsequent review and synthesis of assessment and plan 10 in communicating with other providers regarding the patient's case: CCM, nursing Prolonged Care Time Prolonged Care Time: No Advanced Care Planning 01199 Advanced Care Planning 30 Min Coding Level of Care Code New Pt INP/OBS CONSULT LVL 5, 80 MIN Patient Type New History Comprehensive Exam Comprehensive Medical Decision Making High Complexity Diagnoses Palliative care encounter Z51.5 Cancer related pain G89.3 Discussion about advance care planning held with family member Z71.0 Acute respiratory failure with hypoxia J96.01 Acute renal failure N17.9 Acute renal failure type: unspecified Breast cancer metastasized to bone C50.919; C79.51 Rhabdomyolysis M62.82 Rhabdomyolysis type: non-traumatic Elevated troponin R77.8 Shock circulatory R57.9 Regular alcohol consumption Z78.9 Additional Codes Advanced Care Planning - 85021 Advanced Care Planning 30 Min: 41496 Advanced Care Planning 30 Min ([id number])
[2022-12-02] MEDS ORDERED: MIDAZOLAM BOLUS FROM BAG IV PRN (10:35)
[2022-12-02] MEDS ORDERED: MIDAZOLAM HCL 125 MG/250 ML BAG IV PRN (10:35)
--- NOTE | 2022-12-02 10:36 | XCELERA ---
[id number]
[2022-12-02] MEDS ORDERED: HYDROmorphone INJ 1 MG/ML SYRINGE IV PRN (10:37)
[2022-12-02] MEDS: CEFEPIME 1,000 MG in SYRINGE 0 ML IV SCH ×2 (11:19→23:50)
[2022-12-02] MEDS: HEPARIN SODIUM/DEXTROSE 25,000 UNITS/500 ML BAG IV SCH (11:19)
[2022-12-02] MEDS: HYDROmorphone INJ 1 MG/ML SYRINGE IV SCH ×3 (11:42→23:51)
[2022-12-02] MEDS: PANTOprazole 40 MG in SYRINGE 0 ML IV SCH (11:42)
--- NOTE | 2022-12-02 12:59 | XRay Report ---
XR chest 1V portable CLINICAL HISTORY: OG tube placement TECHNIQUE: Single frontal radiograph of the chest was obtained. Comparison: Comparison is made to chest radiograph 12/01/2022 FINDINGS: Enteric tube side-port and tip lies below the diaphragm. Endotracheal tube is stable. Cardiomegaly is noted. The lungs are clear. No evidence of pleural effusion or pneumothorax. IMPRESSION: Satisfactory appearance of enteric and endotracheal tubes. Cardiomegaly is noted. ACT 112: Negative or not required by law. Electronically signed by: Joseph Longoria M.D. 12/02/2022 12:58 PM
--- NOTE | 2022-12-02 13:53 | Communication Note ---
Date of Service: December 02, 2022 Patient seen and examined. EMR reviewed. Discussed with overnight critical care TOY as well as on multidisciplinary rounds and with the patient's son and palliative care and cardiology at bedside as well as nephrology. The patient is critically ill at this point time with multiorgan system dysfunction. She has encephalopathy of unclear etiology although certainly could be attributable to a metabolic etiology. She is hypotensive requiring pressors and has a apical thrombus identified on echocardiogram. She requires ventilatory support and is in acute kidney failure with hyperkalemia, anuria, and refractory acidosis. This is in the setting of metastatic breast cancer for which the patient is already engaged palliative care and is on chronic pain management strategy. Given her history of alcohol abuse we will initiate high-dose thiamine and folate. We will judiciously use benzodiazepines to prevent withdrawal. We will place her back on a baseline dose of her Dilaudid to prevent narcotic withdrawal as well. We will follow neurological status. Will continue the bicarb drip for now. Had a long discussion with the patient's son at bedside. He is unclear whether the patient would want dialysis or not and wishes to discuss it with multiple family members. I advised them that we do not need a decision immediately however likely within the next 12 to 24 hours we should have a decision on which direction to go. Will initiate full anticoagulation using a heparin infusion given the apical thrombus. According to cardiology, cannot exclude that it may be secondarily infected. Continue antibiotics for presumed pneumonia. Check procalcitonin sputum culture and blood cultures. Overall the patient's prognosis is guarded. She has 4 organ systems that have failed and is on life-sustaining therapy currently. The patient's son relates that she had always expressed a desire to not pursue aggressive interventions if she were not able to maintain her quality of life. In addition he relates that her quality of life has been deteriorating over time and if her quality of life were to be any worse than what she came into the hospital with, it would likely not be compatible with her desire to move on. I advised him that the current situation would likely make it difficult for us to return the patient back to the poor quality of life that she had prior to this event. He again is taken it under consideration and wishes to discuss with multiple family members prior to deciding on a course of action although at this point in time transition to palliative care would be entirely appropriate. Discussed with bedside critical care nurse. And additional 58 minutes in critical care time was spent in evaluation management of this patient Coding Level of Care Code Critical Care seema addt'l 30 min
--- NOTE | 2022-12-02 14:10 | Electrocardiogram Report ---
Test Reason : Blood Pressure : / mmHG Vent. Rate : 064 BPM Atrial Rate : 064 BPM P-R Int : 158 ms QRS Dur : 102 ms QT Int : 572 ms P-R-T Axes : 064 -60 114 degrees QTc Int : 590 ms Normal sinus rhythm Left atrial enlargement Left axis deviation Possible Old Inferior infarct (cited on or before 01-DEC-2022) Left ventricular hypertrophy with repolarization abnormality Prolonged QT Abnormal ECG When compared with ECG of 01-DEC-2022 22:52, Incomplete right bundle branch block is no longer Present Confirmed by Zack Hagen ([id number]) on 12/02/2022 2:09:45 PM Referred By: REFERRED SELF Confirmed By:Zack Hagen
[2022-12-02] MEDS ORDERED: METOPROLOL TARTRATE 1 MG/ML VIAL IV STA (14:17)
[2022-12-02] MEDS ORDERED: METOPROLOL TARTRATE 1 MG/ML VIAL IV PRN (14:17)
--- NOTE | 2022-12-02 14:35 | Electrocardiogram Report ---
Test Reason : Blood Pressure : / mmHG Vent. Rate : 145 BPM Atrial Rate : 150 BPM P-R Int : 000 ms QRS Dur : 102 ms QT Int : 352 ms P-R-T Axes : 000 -58 124 degrees QTc Int : 546 ms Atrial fibrillation with rapid ventricular response Left anterior fascicular block Old Inferior infarct (cited on or before 01-DEC-2022) Poor R wave progression, consider anterior IL vs. lead placement vs. LVH Abnormal ECG When compared with ECG of 02-DEC-2022 05:19, Atrial fibrillation has replaced Sinus rhythm Vent. rate has increased BY 81 BPM Confirmed by Zack Hagen ([id number]) on 12/02/2022 2:35:32 PM Referred By: REFERRED SELF Confirmed By:Zack Hagen
--- NOTE | 2022-12-02 14:37 | Electrocardiogram Report ---
Test Reason : Blood Pressure : / mmHG Vent. Rate : 064 BPM Atrial Rate : 064 BPM P-R Int : 158 ms QRS Dur : 102 ms QT Int : 572 ms P-R-T Axes : 064 -60 114 degrees QTc Int : 590 ms Normal sinus rhythm Left atrial enlargement Left axis deviation Possible Old Inferior infarct (cited on or before 01-DEC-2022) Left ventricular hypertrophy with repolarization abnormality Prolonged QT Abnormal ECG When compared with ECG of 01-DEC-2022 22:52, Incomplete right bundle branch block is no longer Present Confirmed by Zack Hagen ([id number]) on 12/02/2022 2:09:45 PM Also confirmed by Zack Hagen ([id number]), desk editor Roldan Solis ([id number]) on 12/02/2022 2:37:24 PM Referred By: REFERRED SELF Confirmed By:Zack Hagen
[2022-12-02] MEDS: PHENYLEPHRINE HCL 20 MG in DEXTROSE 5% 500 ML IV SCH (14:40)
[2022-12-02] MEDS: THIAMINE HCL 500 MG in SODIUM CHLORIDE 0.9% 50 ML IV SCH ×2 (14:41→21:15)
[2022-12-02] MEDS: FOLIC ACID 1 MG in SYRINGE 9.8 ML IV SCH (14:41)
--- NOTE | 2022-12-02 15:18 | Electrocardiogram Report ---
Test Reason : Blood Pressure : / mmHG Vent. Rate : 093 BPM Atrial Rate : 093 BPM P-R Int : 160 ms QRS Dur : 102 ms QT Int : 406 ms P-R-T Axes : 073 -62 108 degrees QTc Int : 504 ms Poor data quality, interpretation may be adversely affected Normal sinus rhythm Left atrial enlargement Incomplete right bundle branch block Left anterior fascicular block Left ventricular hypertrophy with repolarization abnormality Abnormal ECG When compared with ECG of 12-AUG-2022 11:12, T wave inversion no longer evident in Inferior leads T wave inversion now evident in Anterolateral leads Confirmed by Zack Hagen ([id number]) on 12/02/2022 3:18:02 PM Referred By: REFERRED SELF Confirmed By:Zack Hagen
[2022-12-02] MEDS ORDERED: AMIODARONE / D5W 150 MG/100 ML BAG IV STA (16:03)
[2022-12-02] MEDS ORDERED: 0.2 MICRON FILTER SET 1 EACH IV STA (16:03)
[2022-12-02] MEDS ORDERED: AMIODARONE IV BOLUS & DRIP IV STA (16:03)
[2022-12-02] MEDS ORDERED: AMIODARONE / D5W 360 MG/200 ML BAG IV ONE (16:14)
--- NOTE | 2022-12-02 17:48 | Cardiology Consultation ---
Date of Consultation December 02, 2022 Assessment & Plan (1) Left ventricular apical thrombus: (2) Cardiomyopathy: (3) Atrial fibrillation with RVR: (4) Acute hypotension: (5) Metastatic cancer: Plan Complex patient with multi-system organ failure whose prognosis is extremely poor. Etiology of her cardiomyopathy is uncertain, may be secondary to sepsis, stress cardiomyopathy, or acute myocardial ischemia (no evidence of ST elevation infarct), or combination of the above. Most likely, low flow state resulted in apical region stasis and coagulation with development of left ventricular apical thrombus. In the absence of active bleeding, treatment of left ventricular thrombus with heparinization short-term seems appropriate. If she were to survive, could utilize a direct oral anticoagulant for 3 months for management of left ventricular thrombus. Although this could represent vegetation as well, blood cultures thus far are negative. If blood cultures positive, treatment of any vegetation would be with antimicrobials, no indication for any mechanical intervention. Subsequent to my evaluation this morning, the patient apparently developed atrial fibrillation. Agree with amiodarone for rhythm control, since she no doubt will tolerate tachycardia poorly. History of Present Illness Reason for Consultation: apical blood clot/mass on echo with worsening EF Requesting Physician: Moo Freeman DO Attending Physician: Giovanni Gonzales History of Present Illness 72-year-old woman with complex medical history which does not include any significant cardiac issues but does include metastatic cancer, admitted 12/01/2022 with acute respiratory failure with hypoxia and right lower lobe pneumonia, course complicated by hypotension/renal failure/rhabdomyolysis, noted on echocardiogram to have a 2 x 2 centimeter apical lesion for which cardiology consultation was sought. Patient intubated and not currently responsive, no further history available. Admission H&P notes that she was ill for the past several days and was thought to have been lying on the floor throughout the night. ECG and echo findings as noted in results. Allergies Allergy/AdvReac Type Severity Reaction Status Date / Time fentanyl AdvReac Severe Hallucinati Verified 08/26/22 08:14 on Home Medications Medication Instructions Recorded Confirmed Type cholecalciferol (vitamin D3) 50 50 mcg PO QAM 01/06/22 12/01/22 History mcg (2,000 unit) capsule acetaminophen 325 mg tablet 650 mg PO Q6H PRN pain, mild 02/08/22 12/01/22 Hi story anastrozole 1 mg tablet 1 mg PO QAM 02/08/22 12/01/22 History multivitamin with minerals 1 cap PO QAM 02/08/22 12/01/22 History losartan 100 mg tablet 100 mg PO QAM #90 tabs 05/30/22 12/01/22 Rx metoprolol succinate 100 mg 100 mg PO QAM #90 tabs 07/23/22 12/01/22 Rx tablet,extended release 24 hr omeprazole 20 mg capsule,delayed 20 mg PO QAM #90 caps 07/23/22 12/01/22 Rx release Ibrance 1 dose PO UD 08/12/22 08/26/22 History calcium carbonate 600 mg-vitamin 1 tab PO QAM 08/12/22 12/01/22 History D3 10 mcg (400 unit) tablet (Calcium 600 + D(3)) gabapentin 600 mg tablet 600 mg PO QAM 08/12/22 12/01/22 History hydromorphone 8 mg tablet 4 mg PO Q4 PRN Pain, Severe 08/12/22 12/01/22 History magnesium 250 mg tablet 250 mg PO DAILY 08/12/22 12/01/22 History venlafaxine 150 mg 150 mg PO QAM #90 caps 09/04/22 12/01/22 Rx capsule,extended release 24 hr rosuvastatin 5 mg tablet 5 mg PO DAILY #90 tabs 10/03/22 12/01/22 Rx clonazepam 1 mg tablet 1 mg PO TID #90 tabs 10/22/22 12/01/22 Rx venlafaxine 75 mg capsule,extended 75 mg PO QAM 12/01/22 12/01/22 History release 24 hr Patient History Medical History Acute alteration in mental status Bilateral breast cancer [id number]--sx/chemo/radiation Breast cancer metastasized to bone 2021 Cancer related pain Case discussed with Dr. Miller/Ren[facility] Palliative med, who has been managing patient's complex cancer pain with Methadone 5mg TID + prn Dilaudid oral. it is noted that pt has h/o ETOH abuse and ?opioid misuse. Her son reportedly struggles with substance abuse and there have been several early requests for opioids, raising the concern someone else is taking her meds. 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 Osteoarthritis Pain of right lower extremity Palliative care encounter Type II diabetes mellitus Vitamin D deficiency Surgical History H/O tubal ligation History of appendectomy History of section History of colonoscopy History of esophagogastroduodenoscopy (EGD) History of left breast biopsy malignant History of lumpectomy of both breasts x2 History of right breast biopsy malignant History of tooth extraction History of wisdom tooth extraction Hx laparoscopic cholecystectomy (08/13/22) Laparoscopic Cholecystectomy - Alexandro Alvarez, DO, FACS Status post correction of deviated nasal septum Family History Grandmother (Maternal) AAA (abdominal aortic aneurysm) Family history of diabetes mellitus Mother No problems noted. 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 Normal electrolytes, BUN 50, creatinine 4.07. Diagnostic Findings Admission ECG showed sinus rhythm at 93 bpm, LVH with repolarization abnormality. Compared with July 2022 ECG T wave inversion now evident in the anterolateral leads. ECG today showed sinus rhythm at 64 bpm, possible old inferior infarct, LVH with repull abnormality including lateral T wave inversions. Compared with ECG yesterday, incomplete right bundle branch block no longer present, otherwise no significant change. Echocardiogram showed EF of 25 to 30% with moderate to severe global hypokinesis and apical akinesis, evidence of RV pressure/volume overload with dilated right ventricle and moderate to severely reduced systolic function, a 2 x 2 centimeter pedunculated mass attached by narrow stalk to the left ventricular apex, thrombus most likely but vegetation a possibility, mild mitral regurgitation, moderate tricuspid regurgitation, moderate pulmonary hypertension, evidence of elevated pulmonary artery end-diastolic pressure Chest CT showed no pulmonary embolism, there is mild pulmonary edema with right lower lobe airspace opacity consistent with pneumonia. Additional findings suggesting right heart dysfunction. PG Care Time/CCT Total # of Minutes Spent Total Time Spent with Patient: Total time spent is greater than 50% in coordination of care (as documented) at patient's floor/unit and/or counseling patient: Coding Level of Care Code INP/OBS CONSULT LVL 4, 60 MIN Diagnoses Left ventricular apical thrombus I51.3 Cardiomyopathy I42.9 Atrial fibrillation with RVR I48.91 Acute hypotension I95.9 Metastatic cancer C79.9
[2022-12-02 17:56] LABS: A calco-baum cmplx NotReported Not Detected (NotDetected); Bact fragilis Not Reported Not Detected (NotDetected); C auris Not Reported Not Detected (NotDetected); Calbicans Not Reported Not Detected (NotDetected); Candida glabrata Not Reported Not Detected (NotDetected); Candida krusei Not Reported Not Detected (NotDetected); Cneoformans/gatti Not Reported Not Detected (NotDetected); Cparapsilosis Not Reported Not Detected (NotDetected); Ctropicalis Not Reported Not Detected (NotDetected); E cloacae compx Not Reported Not Detected (NotDetected); Efaecalis Not Reported Not Detected (NotDetected); Efaecium Not Reported Not Detected (NotDetected); Enterobacterales Not Reported Not Detected (NotDetected); Escherichia coli Not Reported Not Detected (NotDetected); H influenzae Not Reported Not Detected (NotDetected); K aerogenes Not Reported Not Detected (NotDetected); Koxytoca Not Reported Not Detected (NotDetected); Kpneumoniae grp Not Reported Not Detected (NotDetected); Lmonocyt Not Reported Not Detected (NotDetected); N meningitidis Not Reported Not Detected (NotDetected); P aeruginosa Not Reported Not Detected (NotDetected); Proteus spp Not Reported Not Detected (NotDetected); Salmonella spp Not Reported Not Detected (NotDetected); Smarcescens Not Reported Not Detected (NotDetected); Staph lugdunensis Not Reported Not Detected (NotDetected); Staph spp. Not Reported DETECTED (NotDetected); Staphaureus Not Reported Not Detected (NotDetected); Staphepi Not Reported DETECTED (NotDetected); Stenmaltophilia Not Reported Not Detected (NotDetected); Strep agal(GrpB) Not Reported Not Detected (NotDetected); Strep pneum Not Reported Not Detected (NotDetected); Strep pyog (GrpA) Not Reported Not Detected (NotDetected); Strep spp Not Reported Not Detected (NotDetected)
[2022-12-02 18:03] LABS: Partial Thromboplastin Ratio 2.1
[2022-12-02 18:07] LABS: Staphylococcus epidermidis DETECTED (NotDetected); Staphylococcus spp. DETECTED (NotDetected); mecAC Resistant Gene DETECTED (NotDetected)
[2022-12-02] MEDS ORDERED: VANCOMYCIN CONSULT ACTIVE PRN (18:24)
[2022-12-02] MEDS ORDERED: VANCOMYCIN HCL 1 MG in SODIUM CHLORIDE 0.9% 250 ML IV STA (18:24)
[2022-12-02] MEDS: FLUDROCORTISONE ACETATE 0.1 MG TAB PO SCH (18:27)
[2022-12-02] MEDS: HYDROCORTISONE SOD 50 MG in SYRINGE 0 ML IV SCH ×2 (18:27→22:35)
[2022-12-02] MEDS ORDERED: VANCOMYCIN HCL 1,500 MG in SODIUM CHLORIDE 0.9% 500 ML IV ONE (18:30)
--- NOTE | 2022-12-02 19:51 | Hospitalist Progress Note ---
Date of Service December 02, 2022 Assessment & Plan (1) Septic shock: Plan: source - lungs (right-sided pneumonia)? apical thrombus? other? cont levophed support. cont broad-spectrum IV abx - cefepime/vanco, but consider changing latter to daptomycin given her ARF. cont stress-dose steroids as cortisol was only 19. blood cultures late in the day today turned + for GPC in clusters. This does make it concerning that the thrombus seen on echo could be infected/a vegetation? Await blood culture identification. If pt's family desires ongoing, aggressive care she will need repeat blood cultures tomorrow. of note - although LV function on echo is severely reduced the etiology of her shock does not appear to be cardiogenic. (2) Bacteremia: Plan: as above (3) Left ventricular apical thrombus: Plan: large LV thrombus; vegetation cannot be excluded heparin drip in place on broad-spectrum IV abx as noted in #1 above (4) Acute respiratory failure with hypoxia: Plan: multi-organ failure with pneumonia, bacteremia, ARNALDO, etc all to blame appreciate vent management by pulmonary/critical care (5) Rhabdomyolysis: Plan: 2nd to fall/laying on ground at home CPK is only mildly elevated - doubt cause of ARNALDO repeat CPK in am (6) Hypocalcemia: Plan: severe 2nd to Ibrance? 2nd to low magnesium? other cause? s/p replacement per ICU protocol likely the major stage driver of prolonged QTc seen on EKG follow levels (7) Right lower lobe pneumonia: Plan: son reports he found vomit on his mother at home prior to EMS arrival thus - aspiration pneumonia? cont cefepime, etc (8) Acute renal failure: Plan: severe, with resulting hyperkalemia significant oliguria since admission likely due to #1/sepsis-associated nephrology consulted for assistance if renal function cont to worsen & family desires aggressive care then she may need HD (9) Acute hyperkalemia: Plan: 2nd ARNALDO improved (10) Lactic acidosis: Plan: 2nd to #1 (11) Elevated troponin: Plan: cannot rule out ACS/NSTEMI in light of echo findings vs myocardial demand ischemia remains on heparin drip for apical thrombus (12) History of bilateral breast cancer: Plan: initial dx early with subsequent recurrence and metastatic disease (13) Regular alcohol consumption: Plan: thiamine/folate watch for symptoms/signs of withdrawal (14) Cardiomyopathy: Plan: NEW, as seen on today's echo EF <30% etiology? ischemic? Takotsubo's? other? defer management to cardiology (15) Type II diabetes mellitus: Plan: previous high a1c's several years ago now a1c <6% resolved hyperglycemia protocol while in ICU (16) Macrocytic anemia: Plan: likely 2nd to etoh consumption cannot rule out B12/folate/copper deficiencies, etc serial CBC (17) Shock liver: Plan: LFT pattern c/w acute liver injury/shock liver serial LFTs, INR (18) Hypomagnesemia: Plan: replaced resolved likely contributed to prolonged QTc (19) Prolonged QT interval: Plan: 2nd to low mag, low calcium telemetry monitoring replace electrolytes (20) DVT prophylaxis: Plan: heparin drip (21) Acute metabolic encephalopathy: Plan: numerous causes - sepsis/septic shock, ARNALDO, acute resp failure, etc Plan prognosis very, very poor support given to pt's son at bedside care d/w DR Arnold - rotor coil taper Admission and Anticipated Discharge Date Admission Date: December 01, 2022 Subjective events of last 24 hours noted remains intubated and sedated although she woke up briefly during my visit - lifting her left arm in the air and opening her eyes; she did not move the right arm or legs son was at bedside - appropriately upset and tearful still requiring low-dose levophed for BP support just prior to my visit an echo had been completed and an apical thrombus was seen Review of Systems Review of Systems: Unobtainable due to endotracheal tube and Unobtainable due to reduced consciousness Physical Exam Physical Exam: gen - intubated, sedated, briefly opened her eyes spontaneously mouth - ETT in place neck - no obvious JVD heart - RRR, s1 s2, no murmur lungs - decreased BS on right, otherwise CTA b/l anteriorly abd - soft NT ND BS+ ext - cool to touch with mild mottling, pulses 1+ b/l, cap refill sluggish, trace edema neuro - moved left arm spontaneously but not the right arm or legs Results & Data Results & Data ([facility]) Vital Signs (Past 12 Hours) Vital Signs Temp Pulse Resp BP Pulse Ox O2 Del Method FiO2 12/02/22 19:00 37.3 C 57 L 22 107/69 94 12/02/22 18:30 37.3 C 58 L 22 117/67 94 12/02/22 18:00 37.3 C 138 H 22 93/72 L 94 12/02/22 17:00 37.3 C 144 H 22 109/89 94 12/02/22 16:00 37.3 C 146 H 22 93 12/02/22 15:00 37.4 C 132 H 22 121/74 93 12/02/22 14:30 37.3 C 132 H 22 100/69 90 12/02/22 14:00 37.3 C 154 H 22 100/78 94 12/02/22 13:00 37.3 C 64 22 135/81 94 12/02/22 12:00 37.5 C 65 22 91/55 L 91 12/02/22 11:00 37.5 C 73 22 118/83 93 12/02/22 10:30 37.4 C 77 19 136/87 12/02/22 16:00 35 12/02/22 14:45 141 H 22 94 35 12/02/22 15:20 143 H 117/69 12/02/22 14:42 143 H 102/76 12/02/22 08:00 Mechanical Vent 30 12/02/22 10:00 37.6 C H 67 22 132/84 95 12/02/22 09:30 37.5 C 69 22 109/69 89 L 12/02/22 09:00 68 22 126/83 93 12/02/22 08:30 70 22 120/86 94 12/02/22 08:00 37.5 C 65 22 97 12/02/22 12:00 35 12/02/22 10:21 71 22 93 30 12/02/22 08:00 30 Laboratory Results Laboratory Results - last 24 hr 12/01/22 12/01/22 12/01/22 22:21 22:21 22:21 WBC 7.93 RBC 2.47 L Hgb 9.6 L POC Hgb Hct 29.0 L POC Hct MCV 117.4 H MCH 38.9 H MCHC 33.1 RDW Std Deviation 65.7 H RDW Coeff of Cheri 15.5 H Plt Count 163 MPV 10.8 Immature Gran % (Auto) 0.9 Neut % (Auto) 79.6 Lymph % (Auto) 12.1 Ector % (Auto) 7.3 Eos % (Auto) 0.0 Baso % (Auto) 0.1 Neut # (Auto) 6.31 Lymph # (Auto) 0.96 L Ector # (Auto) 0.58 Eos # (Auto) 0.00 Baso # (Auto) 0.01 Immature Gran # (Auto) 0.07 H Absolute Nucleated RBC 0.33 H Nucleated RBC % (auto) 4.2 Polychromasia 1+ Macrocytosis Present APTT 28.2 PTT Ratio 1.0 Sample Site POC pH POC pCO2 POC pO2 POC HCO3 POC Base Excess POC ABG O2 Sat Rafal Test VBG pH VBG pCO2 VBG pO2 VBG HCO3 VBG O2 Saturation VBG Base Excess O2 Delivery Device POC O2 Rate POC FiO2 Tidal Volume PEEP POC Sodium Sodium 142 POC Potassium Potassium 6.0 H POC Chloride Chloride 104 Carbon Dioxide 22 POC Total CO2 Anion Gap 16 H POC Anion Gap POC BUN BUN 48 H Creatinine 4.21 H POC Creatinine Est Cr Clr Drug Dosing 13.3 Est GFR ( Amer) 11.6 Est GFR (Non-Af Amer) 10.0 BUN/Creatinine Ratio 11.4 Glucose 88 POC Glucose (other) Lactate Calcium 5.8 L* POC Ioniz Calcium Kimberly Ionized Calcium Phosphorus Magnesium 1.3 L Total Bilirubin 0.9 Direct Bilirubin 0.3 H AST 612 H ALT 206 H Alkaline Phosphatase 123 H Total Creatine Kinase 881 H Troponin I High Sens 1727.4 H* Total Protein 7.3 Albumin 3.7 Globulin Albumin/Globulin Ratio Procalcitonin Random Cortisol Urine Color Urine Appearance Urine pH Ur Specific Diagonal Urine Protein Urine Glucose (UA) Urine Ketones Urine Blood Urine Nitrite Urine Bilirubin Urine Urobilinogen Ur Leukocyte Esterase Urine WBC (Auto) Urine RBC (Auto) U Hyaline Cast (Auto) U Epithel Cells (Auto) Urine Bacteria (Auto) Urine Crystals Uric Acid Crystals Nasal Screen MRSA (PCR) SARS-CoV-2 (PCR) Influenza Type A (PCR) Influenza Type B (PCR) RSV (RT-PCR) Staphylococcus sp PCR mecA/C-Methicil Resis Gene Staph epidermidis (PCR) Bld Cult ID Panel PCR 12/01/22 12/01/22 12/01/22 22:21 22:21 22:21 WBC RBC Hgb POC Hgb Hct POC Hct MCV MCH MCHC RDW Std Deviation RDW Coeff of Cheri Plt Count MPV Immature Gran % (Auto) Neut % (Auto) Lymph % (Auto) Ector % (Auto) Eos % (Auto) Baso % (Auto) Neut # (Auto) Lymph # (Auto) Ector # (Auto) Eos # (Auto) Baso # (Auto) Immature Gran # (Auto) Absolute Nucleated RBC Nucleated RBC % (auto) Polychromasia Macrocytosis APTT PTT Ratio Sample Site POC pH POC pCO2 POC pO2 POC HCO3 POC Base Excess POC ABG O2 Sat Rafal Test VBG pH 7.15 L VBG pCO2 65 H VBG pO2 32 VBG HCO3 23 VBG O2 Saturation < 60.0 VBG Base Excess -7.3 O2 Delivery Device POC O2 Rate POC FiO2 Tidal Volume PEEP POC Sodium Sodium POC Potassium Potassium POC Chloride Chloride Carbon Dioxide POC Total CO2 Anion Gap POC Anion Gap POC BUN BUN Creatinine POC Creatinine Est Cr Clr Drug Dosing Est GFR ( Amer) Est GFR (Non-Af Amer) BUN/Creatinine Ratio Glucose POC Glucose (other) Lactate 3.4 H* Calcium POC Ioniz Calcium Kimberly Ionized Calcium Phosphorus Magnesium Total Bilirubin Direct Bilirubin AST ALT Alkaline Phosphatase Total Creatine Kinase Troponin I High Sens Total Protein Albumin Globulin Albumin/Globulin Ratio Procalcitonin 4.29 H Random Cortisol Urine Color Urine Appearance Urine pH Ur Specific Diagonal Urine Protein Urine Glucose (UA) Urine Ketones Urine Blood Urine Nitrite Urine Bilirubin Urine Urobilinogen Ur Leukocyte Esterase Urine WBC (Auto) Urine RBC (Auto) U Hyaline Cast (Auto) U Epithel Cells (Auto) Urine Bacteria (Auto) Urine Crystals Uric Acid Crystals Nasal Screen MRSA (PCR) SARS-CoV-2 (PCR) Influenza Type A (PCR) Influenza Type B (PCR) RSV (RT-PCR) Staphylococcus sp PCR mecA/C-Methicil Resis Gene Staph epidermidis (PCR) Bld Cult ID Panel PCR 12/01/22 12/01/22 12/01/22 22:21 22:27 22:32 WBC RBC Hgb POC Hgb 9.9 L Hct POC Hct 29 L MCV MCH MCHC RDW Std Deviation RDW Coeff of Cheri Plt Count MPV Immature Gran % (Auto) Neut % (Auto) Lymph % (Auto) Ector % (Auto) Eos % (Auto) Baso % (Auto) Neut # (Auto) Lymph # (Auto) Ector # (Auto) Eos # (Auto) Baso # (Auto) Immature Gran # (Auto) Absolute Nucleated RBC Nucleated RBC % (auto) Polychromasia Macrocytosis APTT PTT Ratio Sample Site POC pH 7.29 L POC pCO2 36 POC pO2 > 420 H POC HCO3 18 L POC Base Excess -9.0 POC ABG O2 Sat 100.0 H Rafal Test VBG pH VBG pCO2 VBG pO2 VBG HCO3 VBG O2 Saturation VBG Base Excess O2 Delivery Device POC O2 Rate POC FiO2 Tidal Volume PEEP POC Sodium 141 Sodium POC Potassium 6.0 H Potassium POC Chloride 107 Chloride Carbon Dioxide POC Total CO2 25 19 L Anion Gap POC Anion Gap 17.0 POC BUN 55 H BUN Creatinine POC Creatinine 4.6 H* Est Cr Clr Drug Dosing Est GFR ( Amer) Est GFR (Non-Af Amer) BUN/Creatinine Ratio Glucose POC Glucose (other) 87 Lactate Calcium POC Ioniz Calcium Kimberly 0.68 L* Ionized Calcium Phosphorus Magnesium Total Bilirubin Direct Bilirubin AST ALT Alkaline Phosphatase Total Creatine Kinase Troponin I High Sens Total Protein Albumin Globulin Albumin/Globulin Ratio Procalcitonin Random Cortisol Urine Color Urine Appearance Urine pH Ur Specific Diagonal Urine Protein Urine Glucose (UA) Urine Ketones Urine Blood Urine Nitrite Urine Bilirubin Urine Urobilinogen Ur Leukocyte Esterase Urine WBC (Auto) Urine RBC (Auto) U Hyaline Cast (Auto) U Epithel Cells (Auto) Urine Bacteria (Auto) Urine Crystals Uric Acid Crystals Nasal Screen MRSA (PCR) SARS-CoV-2 (PCR) Influenza Type A (PCR) Influenza Type B (PCR) RSV (RT-PCR) Staphylococcus sp PCR DETECTED A mecA/C-Methicil Resis Gene DETECTED A Staph epidermidis (PCR) DETECTED A Bld Cult ID Panel PCR See PCR Comment 12/01/22 12/01/22 12/01/22 22:33 22:58 Unknown WBC RBC Hgb POC Hgb 9.5 L Hct POC Hct 28 L MCV MCH MCHC RDW Std Deviation RDW Coeff of Cheri Plt Count MPV Immature Gran % (Auto) Neut % (Auto) Lymph % (Auto) Ector % (Auto) Eos % (Auto) Baso % (Auto) Neut # (Auto) Lymph # (Auto) Ector # (Auto) Eos # (Auto) Baso # (Auto) Immature Gran # (Auto) Absolute Nucleated RBC Nucleated RBC % (auto) Polychromasia Macrocytosis APTT PTT Ratio Sample Site POC pH POC pCO2 POC pO2 POC HCO3 POC Base Excess POC ABG O2 Sat Rafal Test VBG pH VBG pCO2 VBG pO2 VBG HCO3 VBG O2 Saturation VBG Base Excess O2 Delivery Device POC O2 Rate POC FiO2 Tidal Volume PEEP POC Sodium 141 Sodium POC Potassium 6.0 H Potassium POC Chloride 107 Chloride Carbon Dioxide POC Total CO2 27 Anion Gap POC Anion Gap 14.0 L POC BUN 56 H BUN Creatinine POC Creatinine 4.6 H* Est Cr Clr Drug Dosing Est GFR ( Amer) Est GFR (Non-Af Amer) BUN/Creatinine Ratio Glucose POC Glucose (other) 87 Lactate Calcium POC Ioniz Calcium Kimberly 0.67 L* Ionized Calcium Phosphorus Magnesium Total Bilirubin Direct Bilirubin AST ALT Alkaline Phosphatase Total Creatine Kinase Troponin I High Sens Total Protein Albumin Globulin Albumin/Globulin Ratio Procalcitonin Random Cortisol Urine Color Dark Yellow Urine Appearance Cloudy A Urine pH 5.5 Ur Specific Diagonal 1.017 Urine Protein 3+ H Urine Glucose (UA) Negative Urine Ketones Negative Urine Blood Trace H Urine Nitrite Negative Urine Bilirubin Negative Urine Urobilinogen Negative Ur Leukocyte Esterase Negative Urine WBC (Auto) 1-5 Urine RBC (Auto) 0-4 U Hyaline Cast (Auto) 1-5 U Epithel Cells (Auto) >30 H Urine Bacteria (Auto) Negative Urine Crystals Not Reportable Uric Acid Crystals Present A Nasal Screen MRSA (PCR) SARS-CoV-2 (PCR) NEGATIVE Influenza Type A (PCR) Negative Influenza Type B (PCR) Negative RSV (RT-PCR) Negative Staphylococcus sp PCR mecA/C-Methicil Resis Gene Staph epidermidis (PCR) Bld Cult ID Panel PCR 12/02/22 12/02/22 12/02/22 00:42 02:20 02:20 WBC RBC Hgb POC Hgb Hct POC Hct MCV MCH MCHC RDW Std Deviation RDW Coeff of Cheri Plt Count MPV Immature Gran % (Auto) Neut % (Auto) Lymph % (Auto) Ector % (Auto) Eos % (Auto) Baso % (Auto) Neut # (Auto) Lymph # (Auto) Ector # (Auto) Eos # (Auto) Baso # (Auto) Immature Gran # (Auto) Absolute Nucleated RBC Nucleated RBC % (auto) Polychromasia Macrocytosis APTT PTT Ratio Sample Site POC pH POC pCO2 POC pO2 POC HCO3 POC Base Excess POC ABG O2 Sat Rafal Test VBG pH VBG pCO2 VBG pO2 VBG HCO3 VBG O2 Saturation VBG Base Excess O2 Delivery Device POC O2 Rate POC FiO2 Tidal Volume PEEP POC Sodium Sodium 142 POC Potassium Potassium 4.3 D POC Chloride Chloride 106 Carbon Dioxide 19 L POC Total CO2 Anion Gap 17 H POC Anion Gap POC BUN BUN 48 H Creatinine 4.16 H POC Creatinine Est Cr Clr Drug Dosing 13.5 Est GFR ( Amer) 11.8 Est GFR (Non-Af Amer) 10.2 BUN/Creatinine Ratio 11.5 Glucose 156 H POC Glucose (other) Lactate 4.8 H* Calcium 5.3 L* POC Ioniz Calcium Kimberly Ionized Calcium Phosphorus Magnesium Total Bilirubin Direct Bilirubin AST ALT Alkaline Phosphatase Total Creatine Kinase Troponin I High Sens 2209.9 H* D Total Protein Albumin Globulin Albumin/Globulin Ratio Procalcitonin Random Cortisol Urine Color Urine Appearance Urine pH Ur Specific Diagonal Urine Protein Urine Glucose (UA) Urine Ketones Urine Blood Urine Nitrite Urine Bilirubin Urine Urobilinogen Ur Leukocyte Esterase Urine WBC (Auto) Urine RBC (Auto) U Hyaline Cast (Auto) U Epithel Cells (Auto) Urine Bacteria (Auto) Urine Crystals Uric Acid Crystals Nasal Screen MRSA (PCR) SARS-CoV-2 (PCR) Influenza Type A (PCR) Influenza Type B (PCR) RSV (RT-PCR) Staphylococcus sp PCR mecA/C-Methicil Resis Gene Staph epidermidis (PCR) Bld Cult ID Panel PCR 12/02/22 12/02/22 12/02/22 03:30 03:34 04:12 WBC RBC Hgb POC Hgb Hct POC Hct MCV MCH MCHC RDW Std Deviation RDW Coeff of Cheri Plt Count MPV Immature Gran % (Auto) Neut % (Auto) Lymph % (Auto) Ector % (Auto) Eos % (Auto) Baso % (Auto) Neut # (Auto) Lymph # (Auto) Ector # (Auto) Eos # (Auto) Baso # (Auto) Immature Gran # (Auto) Absolute Nucleated RBC Nucleated RBC % (auto) Polychromasia Macrocytosis APTT PTT Ratio Sample Site Art Line POC pH 7.35 POC pCO2 30 L POC pO2 243 H POC HCO3 17 L POC Base Excess -9.0 POC ABG O2 Sat 100.0 H Rafal Test NA VBG pH VBG pCO2 VBG pO2 VBG HCO3 VBG O2 Saturation VBG Base Excess O2 Delivery Device Ventilator POC O2 Rate 22 POC FiO2 60 Tidal Volume 400 PEEP 5 POC Sodium Sodium POC Potassium Potassium POC Chloride Chloride Carbon Dioxide POC Total CO2 18 L Anion Gap POC Anion Gap POC BUN BUN Creatinine POC Creatinine Est Cr Clr Drug Dosing Est GFR ( Amer) Est GFR (Non-Af Amer) BUN/Creatinine Ratio Glucose POC Glucose (other) Lactate 5.4 H* Calcium POC Ioniz Calcium Kimberly Ionized Calcium Phosphorus Magnesium Total Bilirubin Direct Bilirubin AST ALT Alkaline Phosphatase Total Creatine Kinase Troponin I High Sens Total Protein Albumin Globulin Albumin/Globulin Ratio Procalcitonin Random Cortisol Urine Color Urine Appearance Urine pH Ur Specific Diagonal Urine Protein Urine Glucose (UA) Urine Ketones Urine Blood Urine Nitrite Urine Bilirubin Urine Urobilinogen Ur Leukocyte Esterase Urine WBC (Auto) Urine RBC (Auto) U Hyaline Cast (Auto) U Epithel Cells (Auto) Urine Bacteria (Auto) Urine Crystals Uric Acid Crystals Nasal Screen MRSA (PCR) Negative SARS-CoV-2 (PCR) Influenza Type A (PCR) Influenza Type B (PCR) RSV (RT-PCR) Staphylococcus sp PCR mecA/C-Methicil Resis Gene Staph epidermidis (PCR) Bld Cult ID Panel PCR 12/02/22 12/02/22 12/02/22 04:56 04:56 04:56 WBC 5.15 RBC 2.41 L Hgb 9.4 L POC Hgb Hct 27.3 L POC Hct MCV 113.3 H MCH 39.0 H MCHC 34.4 RDW Std Deviation 63.1 H RDW Coeff of Cheri 15.3 H Plt Count 152 MPV 10.9 Immature Gran % (Auto) 1.2 Neut % (Auto) 86.6 Lymph % (Auto) 5.0 Ector % (Auto) 7.2 Eos % (Auto) 0.0 Baso % (Auto) 0.0 Neut # (Auto) 4.46 Lymph # (Auto) 0.26 L Ector # (Auto) 0.37 Eos # (Auto) 0.00 Baso # (Auto) 0.00 Immature Gran # (Auto) 0.06 H Absolute Nucleated RBC 0.49 H Nucleated RBC % (auto) 9.5 Polychromasia 1+ Macrocytosis Present APTT PTT Ratio Sample Site POC pH POC pCO2 POC pO2 POC HCO3 POC Base Excess POC ABG O2 Sat Rafal Test VBG pH VBG pCO2 VBG pO2 VBG HCO3 VBG O2 Saturation VBG Base Excess O2 Delivery Device POC O2 Rate POC FiO2 Tidal Volume PEEP POC Sodium Sodium 139 POC Potassium Potassium 4.4 POC Chloride Chloride 104 Carbon Dioxide 14 L POC Total CO2 Anion Gap 21 H POC Anion Gap POC BUN BUN 50 H Creatinine 4.07 H POC Creatinine Est Cr Clr Drug Dosing 12.9 Est GFR ( Amer) 12.1 Est GFR (Non-Af Amer) 10.5 BUN/Creatinine Ratio 12.3 Glucose 102 H POC Glucose (other) Lactate Calcium 5.5 L* POC Ioniz Calcium Kimberly Ionized Calcium 0.64 L* Phosphorus 6.2 H Magnesium 1.7 Total Bilirubin 1.3 H Direct Bilirubin AST 1173 H ALT 429 H Alkaline Phosphatase 134 H Total Creatine Kinase Troponin I High Sens Total Protein 6.3 Albumin 3.3 L Globulin 3.0 Albumin/Globulin Ratio 1.1 Procalcitonin Random Cortisol Urine Color Urine Appearance Urine pH Ur Specific Diagonal Urine Protein Urine Glucose (UA) Urine Ketones Urine Blood Urine Nitrite Urine Bilirubin Urine Urobilinogen Ur Leukocyte Esterase Urine WBC (Auto) Urine RBC (Auto) U Hyaline Cast (Auto) U Epithel Cells (Auto) Urine Bacteria (Auto) Urine Crystals Uric Acid Crystals Nasal Screen MRSA (PCR) SARS-CoV-2 (PCR) Influenza Type A (PCR) Influenza Type B (PCR) RSV (RT-PCR) Staphylococcus sp PCR mecA/C-Methicil Resis Gene Staph epidermidis (PCR) Bld Cult ID Panel PCR 12/02/22 12/02/22 12/02/22 07:48 09:43 12:09 WBC RBC Hgb POC Hgb Hct POC Hct MCV MCH MCHC RDW Std Deviation RDW Coeff of Cheri Plt Count MPV Immature Gran % (Auto) Neut % (Auto) Lymph % (Auto) Ector % (Auto) Eos % (Auto) Baso % (Auto) Neut # (Auto) Lymph # (Auto) Ector # (Auto) Eos # (Auto) Baso # (Auto) Immature Gran # (Auto) Absolute Nucleated RBC Nucleated RBC % (auto) Polychromasia Macrocytosis APTT PTT Ratio Sample Site POC pH POC pCO2 POC pO2 POC HCO3 POC Base Excess POC ABG O2 Sat Rafal Test VBG pH VBG pCO2 VBG pO2 VBG HCO3 VBG O2 Saturation VBG Base Excess O2 Delivery Device POC O2 Rate POC FiO2 Tidal Volume PEEP POC Sodium Sodium POC Potassium Potassium POC Chloride Chloride Carbon Dioxide POC Total CO2 Anion Gap POC Anion Gap POC BUN BUN Creatinine POC Creatinine Est Cr Clr Drug Dosing Est GFR ( Amer) Est GFR (Non-Af Amer) BUN/Creatinine Ratio Glucose POC Glucose (other) 134 H Lactate Calcium POC Ioniz Calcium Kimberly Ionized Calcium Phosphorus Magnesium Total Bilirubin Direct Bilirubin AST ALT Alkaline Phosphatase Total Creatine Kinase Troponin I High Sens 2433.5 H* Total Protein Albumin Globulin Albumin/Globulin Ratio Procalcitonin Random Cortisol 19.15 Urine Color Urine Appearance Urine pH Ur Specific Diagonal Urine Protein Urine Glucose (UA) Urine Ketones Urine Blood Urine Nitrite Urine Bilirubin Urine Urobilinogen Ur Leukocyte Esterase Urine WBC (Auto) Urine RBC (Auto) U Hyaline Cast (Auto) U Epithel Cells (Auto) Urine Bacteria (Auto) Urine Crystals Uric Acid Crystals Nasal Screen MRSA (PCR) SARS-CoV-2 (PCR) Influenza Type A (PCR) Influenza Type B (PCR) RSV (RT-PCR) Staphylococcus sp PCR mecA/C-Methicil Resis Gene Staph epidermidis (PCR) Bld Cult ID Panel PCR 12/02/22 12/02/22 12/02/22 14:22 14:22 17:27 WBC RBC Hgb POC Hgb Hct POC Hct MCV MCH MCHC RDW Std Deviation RDW Coeff of Cheri Plt Count MPV Immature Gran % (Auto) Neut % (Auto) Lymph % (Auto) Ector % (Auto) Eos % (Auto) Baso % (Auto) Neut # (Auto) Lymph # (Auto) Ector # (Auto) Eos # (Auto) Baso # (Auto) Immature Gran # (Auto) Absolute Nucleated RBC Nucleated RBC % (auto) Polychromasia Macrocytosis APTT PTT Ratio Sample Site POC pH POC pCO2 POC pO2 POC HCO3 POC Base Excess POC ABG O2 Sat Rafal Test VBG pH VBG pCO2 VBG pO2 VBG HCO3 VBG O2 Saturation VBG Base Excess O2 Delivery Device POC O2 Rate POC FiO2 Tidal Volume PEEP POC Sodium Sodium POC Potassium Potassium POC Chloride Chloride Carbon Dioxide POC Total CO2 Anion Gap POC Anion Gap POC BUN BUN Creatinine POC Creatinine Est Cr Clr Drug Dosing Est GFR ( Amer) Est GFR (Non-Af Amer) BUN/Creatinine Ratio Glucose POC Glucose (other) Lactate Calcium POC Ioniz Calcium Kimberly Ionized Calcium Phosphorus Magnesium 2.0 Total Bilirubin Direct Bilirubin AST ALT Alkaline Phosphatase Total Creatine Kinase Troponin I High Sens 3195.8 H* D 3389.1 H* Total Protein Albumin Globulin Albumin/Globulin Ratio Procalcitonin Random Cortisol Urine Color Urine Appearance Urine pH Ur Specific Diagonal Urine Protein Urine Glucose (UA) Urine Ketones Urine Blood Urine Nitrite Urine Bilirubin Urine Urobilinogen Ur Leukocyte Esterase Urine WBC (Auto) Urine RBC (Auto) U Hyaline Cast (Auto) U Epithel Cells (Auto) Urine Bacteria (Auto) Urine Crystals Uric Acid Crystals Nasal Screen MRSA (PCR) SARS-CoV-2 (PCR) Influenza Type A (PCR) Influenza Type B (PCR) RSV (RT-PCR) Staphylococcus sp PCR mecA/C-Methicil Resis Gene Staph epidermidis (PCR) Bld Cult ID Panel PCR 12/02/22 12/02/22 17:27 17:27 WBC RBC Hgb POC Hgb Hct POC Hct MCV MCH MCHC RDW Std Deviation RDW Coeff of Cheri Plt Count MPV Immature Gran % (Auto) Neut % (Auto) Lymph % (Auto) Ector % (Auto) Eos % (Auto) Baso % (Auto) Neut # (Auto) Lymph # (Auto) Ector # (Auto) Eos # (Auto) Baso # (Auto) Immature Gran # (Auto) Absolute Nucleated RBC Nucleated RBC % (auto) Polychromasia Macrocytosis APTT 59.0 H* PTT Ratio 2.1 Sample Site POC pH POC pCO2 POC pO2 POC HCO3 POC Base Excess POC ABG O2 Sat Rafal Test VBG pH VBG pCO2 VBG pO2 VBG HCO3 VBG O2 Saturation VBG Base Excess O2 Delivery Device POC O2 Rate POC FiO2 Tidal Volume PEEP POC Sodium Sodium POC Potassium Potassium POC Chloride Chloride Carbon Dioxide POC Total CO2 Anion Gap POC Anion Gap POC BUN BUN Creatinine POC Creatinine Est Cr Clr Drug Dosing Est GFR ( Amer) Est GFR (Non-Af Amer) BUN/Creatinine Ratio Glucose POC Glucose (other) Lactate Calcium POC Ioniz Calcium Kimberly Ionized Calcium Phosphorus Magnesium 1.9 Total Bilirubin Direct Bilirubin AST ALT Alkaline Phosphatase Total Creatine Kinase Troponin I High Sens Total Protein Albumin Globulin Albumin/Globulin Ratio Procalcitonin Random Cortisol Urine Color Urine Appearance Urine pH Ur Specific Diagonal Urine Protein Urine Glucose (UA) Urine Ketones Urine Blood Urine Nitrite Urine Bilirubin Urine Urobilinogen Ur Leukocyte Esterase Urine WBC (Auto) Urine RBC (Auto) U Hyaline Cast (Auto) U Epithel Cells (Auto) Urine Bacteria (Auto) Urine Crystals Uric Acid Crystals Nasal Screen MRSA (PCR) SARS-CoV-2 (PCR) Influenza Type A (PCR) Influenza Type B (PCR) RSV (RT-PCR) Staphylococcus sp PCR mecA/C-Methicil Resis Gene Staph epidermidis (PCR) Bld Cult ID Panel PCR Diagnostic Findings EKG from this am - NSR, prolonged QTc PG Care Time/CCT Total # of Minutes Spent Total Time Spent with Patient: Total time spent is greater than 50% in coordination of care (as documented) at patient's floor/unit and/or counseling patient: Coding Level of Care Code 83984 SUB INP/OBS CARE 2/35MIN Diagnoses Septic shock A41.9; R65.21 Bacteremia R78.81 Left ventricular apical thrombus I51.3 Acute respiratory failure with hypoxia J96.01 Rhabdomyolysis M62.82 Rhabdomyolysis type: non-traumatic Hypocalcemia E83.51 Right lower lobe pneumonia J18.9 Pneumonia type: due to unspecified organism Acute renal failure N17.9 Acute renal failure type: unspecified Acute hyperkalemia E87.5 Lactic acidosis E87.20 Elevated troponin R77.8 History of bilateral breast cancer Z85.3 Regular alcohol consumption Z78.9 Cardiomyopathy I42.9 Type II diabetes mellitus E11.9 Macrocytic anemia D53.9 Shock liver K72.00 Hypomagnesemia E83.42 Prolonged QT interval R94.31 DVT prophylaxis Z29.9 Acute metabolic encephalopathy G93.41 (1) Acute renal failure Acute renal failure type: unspecified Qualified Code(s): N17.9 - Acute kidney failure, unspecified (2) Right lower lobe pneumonia Pneumonia type: due to unspecified organism Qualified Code(s): J18.9 - Pneumonia, unspecified organism (3) Rhabdomyolysis Rhabdomyolysis type: non-traumatic Qualified Code(s): M62.82 - Rhabdomyolysis
[2022-12-02] MEDS ORDERED: STAT IV STA (20:17)
[2022-12-02] MEDS ORDERED: CALCIUM GLUCONATE 10% 3,000 MG in DEXTROSE 5% 100 ML IV ONE (20:25)
[2022-12-02 20:47] LABS: BUN Creatinine Ratio 12.7 (10-20); Calcium 6.2 mg/dl (8.5-10.1); Creatinine Clr Calc Pharmacy 11.5 ml/min; Est GFR (African American) 10.6 ml/min; Est GFR (Non-African American) 9.1 ml/min; Potassium 3.5 mmol/L (3.5-5.1)
[2022-12-02] MEDS: AMIODARONE / D5W 360 MG/200 ML BAG IV SCH (23:45)
[2022-12-03] MEDS: MAGNESIUM SULFATE / D5W 1 GM/100 ML BAG IV SCH (00:10)
[2022-12-03 00:14] LABS: iSTAT Arterial Blood Gas HCO3 25 meg/L (19-24); iSTAT Arterial Blood Gas pCO2 30 mmHg (35-46); iSTAT Arterial Blood Gas pH 7.53 (7.35-7.45); iSTAT Arterial Blood Gas pO2 63 mmHg (80-95); iSTAT Carbon Dioxide 26 mmol/L (24-31); iSTAT FiO2 60 %; iSTAT Site Art Line
[2022-12-03 05:34] LABS: Partial Thromboplastin Ratio 2.3
[2022-12-03] MEDS: HYDROmorphone INJ 1 MG/ML SYRINGE IV SCH ×4 (05:35→23:57)
[2022-12-03] MEDS: HYDROCORTISONE SOD 50 MG in SYRINGE 0 ML IV SCH ×4 (05:35→23:56)
[2022-12-03 05:39] LABS: Partial Thromboplastin Time 63.3 Seconds (21.0-31.0)
[2022-12-03 05:41] LABS: Hematocrit (blood only) 25.2 % (34.1-44.9); Hemoglobin 9.2 g/dl (12.0-16.0); Mean Corpuscular Hgb Conc 36.5 g/dL (32.0-36.0); Mean Corpuscular Volume 106.8 fL (80.0-100.0); Mean Platelet Volume 11.4 fL (9.4-12.3); Nucleated RBC # (auto) 0.24 K/uL (0-0); Nucleated RBC % (auto) 4.2 %; Platelet Count 144 K/uL (130-400); RDW Coefficient of Variation 14.5 % (11.5-14.5); RDW Standard Deviation 55.7 fL (36.4-46.3); Red Blood Count 2.36 M/uL (3.93-5.22); White Blood Count 5.68 K/ul (4.8-10.8)
[2022-12-03 05:42] LABS: Basophils # (auto) 0.01 K/uL (0-0.2); Basophils % (auto) 0.2 %; Immature Granulocytes # (auto) 0.06 K/uL (0.00-0.02); Immature Granulocytes % (auto) 1.1 %; Lymphocytes # (auto) 0.31 K/uL (1.2-3.4); Lymphocytes % (auto) 5.5 %; Monocytes # (auto) 0.09 K/uL (0.24-0.82); Monocytes % (auto) 1.6 %; Neutrophils # (auto) 5.21 K/uL (1.4-6.5); Neutrophils % (auto) 91.6 %; Polychromasia 1+
[2022-12-03 05:54] LABS: Albumin Level 2.8 gm/dl (3.4-5.0); BUN Creatinine Ratio 12.9 (10-20); Bilirubin,Total 0.7 mg/dl (0.2-1.0); Calcium 6.3 mg/dl (8.5-10.1); Creatinine Clr Calc Pharmacy 11.5 ml/min; Est GFR (African American) 10.5 ml/min; Est GFR (Non-African American) 9.1 ml/min; Globulin 2.7 gm/dl (2.5-4.0); Magnesium 2.4 mg/dl (1.7-2.4); Phosphorus 5.6 mg/dl (2.5-4.9); Potassium 3.2 mmol/L (3.5-5.1); Total Protein 5.5 gm/dl (6.0-8.3)
[2022-12-03] MEDS: SODIUM BICARBONATE 8.4% 150 MEQ in WATER, STERILE 1,000 ML IV SCH (06:37)
[2022-12-03] MEDS ORDERED: FUROSEMIDE 40 MG/4 ML VIAL IV ONE (07:11)
[2022-12-03] MEDS: PHENYLEPHRINE HCL 20 MG in DEXTROSE 5% 500 ML IV SCH (07:14)
[2022-12-03] MEDS ORDERED: POTASSIUM CHLORIDE 20 MEQ/15 ML UDC PO STA ×2 (07:34→15:33)
[2022-12-03 07:49] LABS: iSTAT Art Bld Gas pCO2 Correct 33 mmHg (35-46); iSTAT Art Bld Gas pH Corrected 7.534 (7.35-7.45); iSTAT Arterial Blood Gas HCO3 28 meg/L (19-24); iSTAT Arterial Blood Gas pCO2 33 mmHg (35-46); iSTAT Arterial Blood Gas pH 7.53 (7.35-7.45); iSTAT Arterial Blood Gas pO2 64 mmHg (80-95); iSTAT Arterial Blood Gas pO2 C 62; iSTAT Carbon Dioxide 29 mmol/L (24-31); iSTAT FiO2 45 %; iSTAT Hematocrit 26 % (37-47); iSTAT Hemoglobin 8.8 g/dl (12.0-16.0); iSTAT Site Art Line; iSTAT Sodium 135 mmol/L (135-144)
--- NOTE | 2022-12-03 07:53 | Electrocardiogram Report ---
Test Reason : Blood Pressure : / mmHG Vent. 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 lead placement vs. LVH Prolonged QT Abnormal ECG When compared with ECG of 02-DEC-2022 14:06, Sinus rhythm has replaced Atrial fibrillation Vent. rate has decreased BY 87 BPM Nonspecific T wave abnormality now present Anterior leads Confirmed by Zack Hagen ([id number]) on 12/03/2022 7:53:26 AM Referred By: REFERRED SELF Confirmed By:Zack Hagen
--- NOTE | 2022-12-03 08:01 | Electrocardiogram Report ---
Test Reason : Blood Pressure : / mmHG Vent. 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 lead placement vs. LVH Diffuse Nonspecific T wave abnormality Prolonged QT Abnormal ECG When compared with ECG of 02-DEC-2022 19:29, No significant change was found Confirmed by Zack Hagen ([id number]) on 12/03/2022 8:01:31 AM Referred By: REFERRED SELF Confirmed By:Zack Hagen
--- NOTE | 2022-12-03 08:14 | Critical Care Progress Note ---
Date of Service December 03, 2022 Assessment & Plan (1) Multi-organ system dysfunction: Plan: Reason Critically Ill: 72 yo F presents with encephalopathy, hypoxia, hypotension, shock.Immediately intubated on arrival, her hyperkalemia resolved. With acute renal failure secondary to undifferentiated shock. Neuro -Encephalopathy- Metabolic, Sedation for mechanical ventilation, ETOH misuse CAM ICU: unable to assess Sedation: Versed d/c'd. Started on Precedex due to prolonged QT. Analgesia: Dilaudid - CT head negative for acute process. CT cervical spine without acute fx/subluxation. - Acidosis improved on on bicarb drip. 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 high dose thiamine and folate Cardiac -Septic Shock- requiring vasopressor support, elevated HScTNI, prolonged QT, ventricular ?thrombus/vegetation, afib Patient arrived with shock- multifactorial to include hypovolemia and sepsis - evidence of multi organ dysfunction- heart, shock liver, encephalopathy, pulmonary hypoxia - lactate now improved - d/c'd (12/03/21) vasopressors - elevated HScTNI in the setting of ARF- without STEMI- likely demand- trend ECG - trops peaked - echo- reduced EF 25-30% with significant wall abnormalities. Presence of a ventricular thrombus or possible vegetation. - consider ALIDA to r/o endocarditis - cardiology on board- cont. short term heparin gtt or consider DOAC if improved prognosis - Holding QT prolongation drugs, most recently 579 - cortisol 19- stress dosing steroids- hydrocortisone and Florinef - developed afib overnight and started on low dose amiodarone drip. Currently in NSR. Will need to consider QT prolongation and hepatotoxicity on this medication. Respiratory -Hypercarbic/hypoxic respiratory failure requiring intubation, emphysema, pneumonia - Continue with ARDSnet ventilation strategy- low PEEP/High FIO2- wean as able - Hold on further steroid administration- continue with TAMI nebulizers while intubated - CTA chest- negative for PE - Opacity right - likely aspiration- cont. abx as below GI - No acute needs - OGT to LIWS - will initiate tube feeds RENAL/LYTES -ARF on CKD, Hyperkalemia, Hypocalcemia, Hypomagnesemia, Metabolic and Respiratory Acidosis, AGAP Acidosis - Likely pre-renal/ATN in setting of hypotension - Electrolytes replacement protocol - Hyperkalemia and hypomagnesemia resolved - Hypocalcemia, improving- s/p 2g calcium chloride. Will give additional 2g. - AGAP and bicarb improved, now alkalotic. Bicarb drip d/c'd. Repeat ABG. - Negative UA - CPK peaked at 850 - +9L since arrival with minimal urine output. Lasix 80mg IV x1 since off vasopressor support. Appears to be starting to produce to urine. - nephro following- will consider trial of dialysis, labs stable to monitor situation for now -martinez in place ENDO -DMII - ICU hyperglycemia protocol HEME -Metastatic breast cancer - hold agents at this time - pain control with Dilaudid- adjust based on renal function and following extubation ID -Pneumonia, gram positive bacteremia - aspiration vs. bacterial pneumonia- initially on cefepime -procal remains elevated -sputum cx growing staph species -MRSA nares neg - blood cx growing gram positive bacteremia (staph species) -methicillin resistant staph epi on PCR -vanc added to abx regimen yesterday evening -will repeat surveillance blood cx -there is concern for infective endocarditis given possible vegetation -ID consulted Overall poor prognosis, however, patient is showing signs of hemodynamic stability. No longer on vasopressor support. Starting to produce urine on diuretic. Still requiring ventilatory support. Palliative on board. Will need to discuss code status with family. Possible dialysis trial tomorrow. LINES/IV ACCESS - CVL right groin, A-line right radial, ETT, OGT, Martinez, PIV Continue use of these lines DVT PROPHYLAXIS - Heparin gtt DISPO: ICU while intubated and on vasopressors Thank you for allowing us to participate in the care of this patient.Please refer to my attending physician's documentation for any further recommendations. (2) Acute metabolic encephalopathy: (3) Acute respiratory failure with hypoxia: (4) Right lower lobe pneumonia: (5) Shock liver: (6) Septic shock: (7) Bacteremia: (8) Cardiomyopathy: (9) Atrial fibrillation with RVR: (10) Left ventricular apical thrombus: (11) Prolonged QT interval: (12) Cancer related pain: (13) Acute renal failure: (14) Lactic acidosis: (15) Elevated troponin: (16) Regular alcohol consumption: (17) History of bilateral breast cancer: Admission and Anticipated Discharge Date Admission Date: December 01, 2022 Supervising Physician Co-Signing Physician Notes Patient seen and examined. EMR reviewed. Discussed on multidisciplinary critical care rounds and with bedside critical care nurse. Discussed extensively with family practice resident and with the patient's son at bedside. Agree with assessment plan as noted. Patient has shown some improvement in her hemodynamics. We have been able to wean pressors off. She did develop atrial fibrillation with rapid ventricular response and was started on amiodarone. She is already anticoagulated given LV thrombus. She has blood cultures positive for methicillin-resistant staph epi. ID consultation pending. Continue vancomycin. Discussed with nephrology at bedside. She does not appear to require urgent hemodialysis currently although she is certainly not out of the timmons from a renal recovery perspective. She did respond favorably with initiation of Lasix this morning. We will continue to trend her chemistry panels. Will see if we can transition the patient to Precedex to potentially facilitate liberation from mechanical ventilator. Her vent settings are slightly worse with an increasing oxygen requirement potentially reflecting the 9 L positive that she is over the course of her hospitalization. Family wishes to continue to pursue aggressive care. She has made some progress but is certainly not out of the timmons with regards to complete recovery. CODE STATUS remains unchanged. Patient is critically ill at this point time with significant possibility of clinical deterioration and/or . A total of 47 minutes of critical care time was spent in evaluation management stabilization of this patient Subjective Patient seen at bedside this morning. Vasopressor turned off. Mildly agitated this morning and was trying to take out tube, restraints placed. Somewhat responsive to commands as she was able to wiggle toes when asked. Minimal to no urine output prior to lasix dose this am. Review of Systems Review of Systems: Unobtainable due to endotracheal tube Physical Exam Physical Exam: General: Sedated HEENT: PERRLA, mucous membranes dry Neuro: unable to assess as patient is intubated Chest: equal rise and fall of the chest, ventilation and oxygenation improved Cardiac: Regular rate and rhythm, +S3, skin cool dry, cap refill <3 seconds, peripheral pulses diminished, no JVD, trace distal lower extremity edema GI: NABS x 4 quadrants, soft, no rebound tenderness or guarding. : Martinez to gravity draining small amount of urine Results & Data Results & Data ([facility]) Vital Signs (Past 12 Hours) Vital Signs Temp Pulse Resp BP Pulse Ox Pulse Ox O2 Del Method 12/03/22 06:00 36.5 C 56 L 18 101/69 94 Mechanical Vent 12/03/22 05:00 36.5 C 55 L 18 99/69 L 93 12/03/22 04:00 36.5 C 54 L 18 99/66 L 94 12/03/22 04:00 56 L 117/67 12/03/22 04:00 12/03/22 02:03 94 12/03/22 03:31 36.6 C 56 L 18 107/57 L 94 Mechanical Vent 12/03/22 03:00 36.6 C 54 L 18 100/72 93 Mechanical Vent 12/03/22 02:30 36.6 C 54 L 18 107/65 93 Mechanical Vent 12/03/22 02:00 36.6 C 54 L 18 93 12/03/22 02:00 98/64 L Mechanical Vent 12/03/22 01:30 101/62 Mechanical Vent 12/03/22 01:30 36.7 C 54 L 18 94 Mechanical Vent 12/03/22 01:00 36.8 C 54 L 18 93 Mechanical Vent 12/03/22 01:00 100/61 Mechanical Vent 12/03/22 03:15 54 L 18 93 12/03/22 00:30 96/63 L 12/03/22 00:30 36.9 C 55 L 18 93 12/03/22 00:00 36.9 C 56 L 22 90 Mechanical Vent 12/03/22 00:00 101/63 12/02/22 23:30 105/66 12/02/22 23:30 37.0 C 58 L 22 90 Mechanical Vent 12/02/22 23:00 37.1 C 59 L 22 92 Mechanical Vent 12/02/22 23:00 109/70 12/02/22 22:30 117/76 12/02/22 22:30 37.1 C 59 L 22 91 Mechanical Vent 12/02/22 22:00 37.1 C 59 L 22 95 12/02/22 22:00 145/84 H 12/02/22 21:30 37.2 C 59 L 22 94 12/02/22 21:30 128/85 12/02/22 21:00 37.2 C 59 L 22 94 12/02/22 21:00 119/80 12/02/22 20:30 37.2 C 58 L 22 95 12/02/22 20:30 121/80 12/02/22 20:00 37.2 C 58 L 22 94 12/02/22 20:00 102/74 12/03/22 00:00 12/03/22 00:00 58 L 111/60 12/03/22 00:00 58 L 12/02/22 23:20 64 22 91 12/03/22 00:04 18 12/02/22 20:00 12/02/22 20:00 58 L 12/02/22 20:00 Mechanical Vent O2 Del Method FiO2 12/03/22 06:00 45 12/03/22 05:00 45 12/03/22 04:00 45 12/03/22 04:00 12/03/22 04:00 45 12/03/22 02:03 Mechanical Vent 12/03/22 03:31 50 12/03/22 03:00 50 12/03/22 02:30 50 12/03/22 02:00 12/03/22 02:00 60 12/03/22 01:30 60 12/03/22 01:30 60 12/03/22 01:00 60 12/03/22 01:00 60 12/03/22 03:15 50 12/03/22 00:30 12/03/22 00:30 12/03/22 00:00 60 12/03/22 00:00 60 12/02/22 23:30 55 12/02/22 23:30 55 12/02/22 23:00 45 12/02/22 23:00 45 12/02/22 22:30 45 12/02/22 22:30 35 12/02/22 22:00 35 12/02/22 22:00 35 12/02/22 21:30 35 12/02/22 21:30 35 12/02/22 21:00 35 12/02/22 21:00 35 12/02/22 20:30 35 12/02/22 20:30 35 12/02/22 20:00 35 12/02/22 20:00 35 12/03/22 00:00 60 12/03/22 00:00 12/03/22 00:00 12/02/22 23:20 45 12/03/22 00:04 12/02/22 20:00 35 12/02/22 20:00 12/02/22 20:00 35 Laboratory Results 12/03/22 12/03/22 12/03/22 Range/Units 07:32 04:58 04:58 WBC (4.8-10.8) K/ul RBC (3.93-5.22) M/uL Hgb (12.0-16.0) g/dl POC Hgb 8.8 L (12.0-16.0) g/dl Hct (34.1-44.9) % POC Hct 26 L (37-47) % MCV (80.0-100.0) fL MCH (25.0-34.0) pg MCHC (32.0-36.0) g/dL RDW Std Deviation (36.4-46.3) fL RDW Coeff of Cheri (11.5-14.5) % Plt Count (130-400) K/uL MPV (9.4-12.3) fL Immature Gran % (Auto) % Neut % (Auto) % Lymph % (Auto) % Grant % (Auto) % Eos % (Auto) % Baso % (Auto) % Neut # (Auto) (1.4-6.5) K/uL Lymph # (Auto) (1.2-3.4) K/uL Grant # (Auto) (0.24-0.82) K/uL Eos # (Auto) (0-0.50) K/uL Baso # (Auto) (0-0.2) K/uL Immature Gran # (Auto) (0.00-0.02) K/uL Absolute Nucleated RBC (0-0) K/uL Nucleated RBC % (auto) % Polychromasia APTT 63.3 H* (21.0-31.0) Seconds PTT Ratio 2.3 Sample Site Art Line POC pH 7.53 H* (7.35-7.45) POC pCO2 33 L (35-46) mmHg POC pO2 64 L (80-95) mmHg POC HCO3 28 H (19-24) martinez/L POC Total CO2 29 (24-31) mmol/L POC Base Excess 5.0 H (-9-1.8) martinez/L ABG pH (Temp Correct) 7.534 H* (7.35-7.45) ABG pCO2 (Temp Corrct 33 L (35-46) mmHg POC ABG pO2 at Pt Temp 62 POC ABG O2 Sat 95.0 (90-95) % Rafal Test NA O2 Delivery Device Ventilator POC O2 Rate 18 POC FiO2 45 % Tidal Volume 400 PEEP 6 POC Sodium 135 (135-144) mmol/L Sodium (136-145) mmol/L POC Potassium 3.0 L (3.3-5.0) mmol/L Potassium (3.5-5.1) mmol/L Chloride (98-107) mmol/L Carbon Dioxide (21-32) mmol/L Anion Gap (3-11) BUN (6-23) mg/dl Creatinine (0.6-1.2) mg/dl Est Cr Clr Drug Dosing ml/min Est GFR ( Amer) ml/min Est GFR (Non-Af Amer) ml/min BUN/Creatinine Ratio (10-20) Glucose (70-99(Fasting)) mg/dl POC Glucose (other) (70-99) mg/dl Calcium (8.5-10.1) mg/dl Ionized Calcium (1.12-1.32) mmol/L Phosphorus (2.5-4.9) mg/dl Magnesium (1.7-2.4) mg/dl Total Bilirubin (0.2-1.0) mg/dl AST (13-39) U/L ALT (7-52) U/L Alkaline Phosphatase (34-104) U/L Total Creatine Kinase 838 H (26-192) U/L Troponin I High Sens (0-14) pg/ml Total Protein (6.0-8.3) gm/dl Albumin (3.4-5.0) gm/dl Globulin (2.5-4.0) gm/dl Albumin/Globulin Ratio (0.9-2) Procalcitonin (0-0.5) ng/ml Random Cortisol mcg/dl Random Vancomycin (10-20) mcg/ml Staphylococcus sp PCR (NotDetected) mecA/C-Methicil Resis Gene (NotDetected) Staph epidermidis (PCR) (NotDetected) Bld Cult ID Panel PCR (NotDetected) 12/03/22 12/03/22 12/03/22 Range/Units 04:58 04:58 04:58 WBC 5.68 (4.8-10.8) K/ul RBC 2.36 L (3.93-5.22) M/uL Hgb 9.2 L (12.0-16.0) g/dl POC Hgb (12.0-16.0) g/dl Hct 25.2 L (34.1-44.9) % POC Hct (37-47) % MCV 106.8 H D (80.0-100.0) fL MCH 39.0 H (25.0-34.0) pg MCHC 36.5 H (32.0-36.0) g/dL RDW Std Deviation 55.7 H (36.4-46.3) fL RDW Coeff of Cheri 14.5 (11.5-14.5) % Plt Count 144 (130-400) K/uL MPV 11.4 (9.4-12.3) fL Immature Gran % (Auto) 1.1 % Neut % (Auto) 91.6 % Lymph % (Auto) 5.5 % Grant % (Auto) 1.6 % Eos % (Auto) 0.0 % Baso % (Auto) 0.2 % Neut # (Auto) 5.21 (1.4-6.5) K/uL Lymph # (Auto) 0.31 L (1.2-3.4) K/uL Grant # (Auto) 0.09 L (0.24-0.82) K/uL Eos # (Auto) 0.00 (0-0.50) K/uL Baso # (Auto) 0.01 (0-0.2) K/uL Immature Gran # (Auto) 0.06 H (0.00-0.02) K/uL Absolute Nucleated RBC 0.24 H (0-0) K/uL Nucleated RBC % (auto) 4.2 % Polychromasia 1+ APTT (21.0-31.0) Seconds PTT Ratio Sample Site POC pH (7.35-7.45) POC pCO2 (35-46) mmHg POC pO2 (80-95) mmHg POC HCO3 (19-24) martinez/L POC Total CO2 (24-31) mmol/L POC Base Excess (-9-1.8) martinez/L ABG pH (Temp Correct) (7.35-7.45) ABG pCO2 (Temp Corrct (35-46) mmHg POC ABG pO2 at Pt Temp POC ABG O2 Sat (90-95) % Rafal Test O2 Delivery Device POC O2 Rate POC FiO2 % Tidal Volume PEEP POC Sodium (135-144) mmol/L Sodium 136 (136-145) mmol/L POC Potassium (3.3-5.0) mmol/L Potassium 3.2 L (3.5-5.1) mmol/L Chloride 96 L (98-107) mmol/L Carbon Dioxide 26 (21-32) mmol/L Anion Gap 14 H (3-11) BUN 59 H (6-23) mg/dl Creatinine 4.57 H* (0.6-1.2) mg/dl Est Cr Clr Drug Dosing 11.5 ml/min Est GFR ( Amer) 10.5 ml/min Est GFR (Non-Af Amer) 9.1 ml/min BUN/Creatinine Ratio 12.9 (10-20) Glucose 142 H (70-99(Fasting)) mg/dl POC Glucose (other) (70-99) mg/dl Calcium 6.3 L (8.5-10.1) mg/dl Ionized Calcium (1.12-1.32) mmol/L Phosphorus 5.6 H (2.5-4.9) mg/dl Magnesium 2.4 (1.7-2.4) mg/dl Total Bilirubin 0.7 D (0.2-1.0) mg/dl AST 2287 H (13-39) U/L ALT 984 H (7-52) U/L Alkaline Phosphatase 123 H (34-104) U/L Total Creatine Kinase (26-192) U/L Troponin I High Sens (0-14) pg/ml Total Protein 5.5 L (6.0-8.3) gm/dl Albumin 2.8 L (3.4-5.0) gm/dl Globulin 2.7 (2.5-4.0) gm/dl Albumin/Globulin Ratio 1.0 (0.9-2) Procalcitonin 4.84 H (0-0.5) ng/ml Random Cortisol mcg/dl Random Vancomycin (10-20) mcg/ml Staphylococcus sp PCR (NotDetected) mecA/C-Methicil Resis Gene (NotDetected) Staph epidermidis (PCR) (NotDetected) Bld Cult ID Panel PCR (NotDetected) 12/03/22 12/03/22 12/03/22 Range/Units 04:58 04:58 00:43 WBC (4.8-10.8) K/ul RBC (3.93-5.22) M/uL Hgb (12.0-16.0) g/dl POC Hgb (12.0-16.0) g/dl Hct (34.1-44.9) % POC Hct (37-47) % MCV (80.0-100.0) fL MCH (25.0-34.0) pg MCHC (32.0-36.0) g/dL RDW Std Deviation (36.4-46.3) fL RDW Coeff of Cheri (11.5-14.5) % Plt Count (130-400) K/uL MPV (9.4-12.3) fL Immature Gran % (Auto) % Neut % (Auto) % Lymph % (Auto) % Grant % (Auto) % Eos % (Auto) % Baso % (Auto) % Neut # (Auto) (1.4-6.5) K/uL Lymph # (Auto) (1.2-3.4) K/uL Grant # (Auto) (0.24-0.82) K/uL Eos # (Auto) (0-0.50) K/uL Baso # (Auto) (0-0.2) K/uL Immature Gran # (Auto) (0.00-0.02) K/uL Absolute Nucleated RBC (0-0) K/uL Nucleated RBC % (auto) % Polychromasia APTT (21.0-31.0) Seconds PTT Ratio Sample Site POC pH (7.35-7.45) POC pCO2 (35-46) mmHg POC pO2 (80-95) mmHg POC HCO3 (19-24) martinez/L POC Total CO2 (24-31) mmol/L POC Base Excess (-9-1.8) martinez/L ABG pH (Temp Correct) (7.35-7.45) ABG pCO2 (Temp Corrct (35-46) mmHg POC ABG pO2 at Pt Temp POC ABG O2 Sat (90-95) % Rafal Test O2 Delivery Device POC O2 Rate POC FiO2 % Tidal Volume PEEP POC Sodium (135-144) mmol/L Sodium (136-145) mmol/L POC Potassium (3.3-5.0) mmol/L Potassium (3.5-5.1) mmol/L Chloride (98-107) mmol/L Carbon Dioxide (21-32) mmol/L Anion Gap (3-11) BUN (6-23) mg/dl Creatinine (0.6-1.2) mg/dl Est Cr Clr Drug Dosing ml/min Est GFR ( Amer) ml/min Est GFR (Non-Af Amer) ml/min BUN/Creatinine Ratio (10-20) Glucose (70-99(Fasting)) mg/dl POC Glucose (other) (70-99) mg/dl Calcium (8.5-10.1) mg/dl Ionized Calcium 0.78 L (1.12-1.32) mmol/L Phosphorus (2.5-4.9) mg/dl Magnesium (1.7-2.4) mg/dl Total Bilirubin (0.2-1.0) mg/dl AST (13-39) U/L ALT (7-52) U/L Alkaline Phosphatase (34-104) U/L Total Creatine Kinase (26-192) U/L Troponin I High Sens 2518.5 H* D (0-14) pg/ml Total Protein (6.0-8.3) gm/dl Albumin (3.4-5.0) gm/dl Globulin (2.5-4.0) gm/dl Albumin/Globulin Ratio (0.9-2) Procalcitonin (0-0.5) ng/ml Random Cortisol mcg/dl Random Vancomycin 17.7 (10-20) mcg/ml Staphylococcus sp PCR (NotDetected) mecA/C-Methicil Resis Gene (NotDetected) Staph epidermidis (PCR) (NotDetected) Bld Cult ID Panel PCR (NotDetected) 12/03/22 12/02/22 12/02/22 Range/Units 00:01 19:54 19:54 WBC (4.8-10.8) K/ul RBC (3.93-5.22) M/uL Hgb (12.0-16.0) g/dl POC Hgb (12.0-16.0) g/dl Hct (34.1-44.9) % POC Hct (37-47) % MCV (80.0-100.0) fL MCH (25.0-34.0) pg MCHC (32.0-36.0) g/dL RDW Std Deviation (36.4-46.3) fL RDW Coeff of Cheri (11.5-14.5) % Plt Count (130-400) K/uL MPV (9.4-12.3) fL Immature Gran % (Auto) % Neut % (Auto) % Lymph % (Auto) % Grant % (Auto) % Eos % (Auto) % Baso % (Auto) % Neut # (Auto) (1.4-6.5) K/uL Lymph # (Auto) (1.2-3.4) K/uL Grant # (Auto) (0.24-0.82) K/uL Eos # (Auto) (0-0.50) K/uL Baso # (Auto) (0-0.2) K/uL Immature Gran # (Auto) (0.00-0.02) K/uL Absolute Nucleated RBC (0-0) K/uL Nucleated RBC % (auto) % Polychromasia APTT (21.0-31.0) Seconds PTT Ratio Sample Site Art Line POC pH 7.53 H* (7.35-7.45) POC pCO2 30 L (35-46) mmHg POC pO2 63 L (80-95) mmHg POC HCO3 25 H (19-24) martinez/L POC Total CO2 26 (24-31) mmol/L POC Base Excess 2.0 H (-9-1.8) martinez/L ABG pH (Temp Correct) (7.35-7.45) ABG pCO2 (Temp Corrct (35-46) mmHg POC ABG pO2 at Pt Temp POC ABG O2 Sat 94.0 (90-95) % Rafal Test NA O2 Delivery Device Ventilator POC O2 Rate 22 POC FiO2 60 % Tidal Volume 400 PEEP 8 POC Sodium (135-144) mmol/L Sodium (136-145) mmol/L POC Potassium (3.3-5.0) mmol/L Potassium (3.5-5.1) mmol/L Chloride (98-107) mmol/L Carbon Dioxide (21-32) mmol/L Anion Gap (3-11) BUN (6-23) mg/dl Creatinine (0.6-1.2) mg/dl Est Cr Clr Drug Dosing ml/min Est GFR ( Amer) ml/min Est GFR (Non-Af Amer) ml/min BUN/Creatinine Ratio (10-20) Glucose (70-99(Fasting)) mg/dl POC Glucose (other) (70-99) mg/dl Calcium (8.5-10.1) mg/dl Ionized Calcium 0.72 L* (1.12-1.32) mmol/L Phosphorus (2.5-4.9) mg/dl Magnesium 1.9 (1.7-2.4) mg/dl Total Bilirubin (0.2-1.0) mg/dl AST (13-39) U/L ALT (7-52) U/L Alkaline Phosphatase (34-104) U/L Total Creatine Kinase (26-192) U/L Troponin I High Sens (0-14) pg/ml Total Protein (6.0-8.3) gm/dl Albumin (3.4-5.0) gm/dl Globulin (2.5-4.0) gm/dl Albumin/Globulin Ratio (0.9-2) Procalcitonin (0-0.5) ng/ml Random Cortisol mcg/dl Random Vancomycin (10-20) mcg/ml Staphylococcus sp PCR (NotDetected) mecA/C-Methicil Resis Gene (NotDetected) Staph epidermidis (PCR) (NotDetected) Bld Cult ID Panel PCR (NotDetected) 12/02/22 12/02/22 12/02/22 Range/Units 19:54 18:55 17:27 WBC (4.8-10.8) K/ul RBC (3.93-5.22) M/uL Hgb (12.0-16.0) g/dl POC Hgb (12.0-16.0) g/dl Hct (34.1-44.9) % POC Hct (37-47) % MCV (80.0-100.0) fL MCH (25.0-34.0) pg MCHC (32.0-36.0) g/dL RDW Std Deviation (36.4-46.3) fL RDW Coeff of Cheri (11.5-14.5) % Plt Count (130-400) K/uL MPV (9.4-12.3) fL Immature Gran % (Auto) % Neut % (Auto) % Lymph % (Auto) % Grant % (Auto) % Eos % (Auto) % Baso % (Auto) % Neut # (Auto) (1.4-6.5) K/uL Lymph # (Auto) (1.2-3.4) K/uL Grant # (Auto) (0.24-0.82) K/uL Eos # (Auto) (0-0.50) K/uL Baso # (Auto) (0-0.2) K/uL Immature Gran # (Auto) (0.00-0.02) K/uL Absolute Nucleated RBC (0-0) K/uL Nucleated RBC % (auto) % Polychromasia APTT 59.0 H* (21.0-31.0) Seconds PTT Ratio 2.1 Sample Site POC pH (7.35-7.45) POC pCO2 (35-46) mmHg POC pO2 (80-95) mmHg POC HCO3 (19-24) martinez/L POC Total CO2 (24-31) mmol/L POC Base Excess (-9-1.8) martinez/L ABG pH (Temp Correct) (7.35-7.45) ABG pCO2 (Temp Corrct (35-46) mmHg POC ABG pO2 at Pt Temp POC ABG O2 Sat (90-95) % Rafal Test O2 Delivery Device POC O2 Rate POC FiO2 % Tidal Volume PEEP POC Sodium (135-144) mmol/L Sodium 138 (136-145) mmol/L POC Potassium (3.3-5.0) mmol/L Potassium 3.5 D (3.5-5.1) mmol/L Chloride 100 (98-107) mmol/L Carbon Dioxide 23 (21-32) mmol/L Anion Gap 15 H (3-11) BUN 58 H (6-23) mg/dl Creatinine 4.56 H* D (0.6-1.2) mg/dl Est Cr Clr Drug Dosing 11.5 ml/min Est GFR ( Amer) 10.6 ml/min Est GFR (Non-Af Amer) 9.1 ml/min BUN/Creatinine Ratio 12.7 (10-20) Glucose 128 H (70-99(Fasting)) mg/dl POC Glucose (other) 131 H (70-99) mg/dl Calcium 6.2 L (8.5-10.1) mg/dl Ionized Calcium (1.12-1.32) mmol/L Phosphorus (2.5-4.9) mg/dl Magnesium (1.7-2.4) mg/dl Total Bilirubin (0.2-1.0) mg/dl AST (13-39) U/L ALT (7-52) U/L Alkaline Phosphatase (34-104) U/L Total Creatine Kinase (26-192) U/L Troponin I High Sens (0-14) pg/ml Total Protein (6.0-8.3) gm/dl Albumin (3.4-5.0) gm/dl Globulin (2.5-4.0) gm/dl Albumin/Globulin Ratio (0.9-2) Procalcitonin (0-0.5) ng/ml Random Cortisol mcg/dl Random Vancomycin (10-20) mcg/ml Staphylococcus sp PCR (NotDetected) mecA/C-Methicil Resis Gene (NotDetected) Staph epidermidis (PCR) (NotDetected) Bld Cult ID Panel PCR (NotDetected) 12/02/22 12/02/22 12/02/22 Range/Units 17:27 17:27 14:22 WBC (4.8-10.8) K/ul RBC (3.93-5.22) M/uL Hgb (12.0-16.0) g/dl POC Hgb (12.0-16.0) g/dl Hct (34.1-44.9) % POC Hct (37-47) % MCV (80.0-100.0) fL MCH (25.0-34.0) pg MCHC (32.0-36.0) g/dL RDW Std Deviation (36.4-46.3) fL RDW Coeff of Cheri (11.5-14.5) % Plt Count (130-400) K/uL MPV (9.4-12.3) fL Immature Gran % (Auto) % Neut % (Auto) % Lymph % (Auto) % Grant % (Auto) % Eos % (Auto) % Baso % (Auto) % Neut # (Auto) (1.4-6.5) K/uL Lymph # (Auto) (1.2-3.4) K/uL Grant # (Auto) (0.24-0.82) K/uL Eos # (Auto) (0-0.50) K/uL Baso # (Auto) (0-0.2) K/uL Immature Gran # (Auto) (0.00-0.02) K/uL Absolute Nucleated RBC (0-0) K/uL Nucleated RBC % (auto) % Polychromasia APTT (21.0-31.0) Seconds PTT Ratio Sample Site POC pH (7.35-7.45) POC pCO2 (35-46) mmHg POC pO2 (80-95) mmHg POC HCO3 (19-24) martinez/L POC Total CO2 (24-31) mmol/L POC Base Excess (-9-1.8) martinez/L ABG pH (Temp Correct) (7.35-7.45) ABG pCO2 (Temp Corrct (35-46) mmHg POC ABG pO2 at Pt Temp POC ABG O2 Sat (90-95) % Rafal Test O2 Delivery Device POC O2 Rate POC FiO2 % Tidal Volume PEEP POC Sodium (135-144) mmol/L Sodium (136-145) mmol/L POC Potassium (3.3-5.0) mmol/L Potassium (3.5-5.1) mmol/L Chloride (98-107) mmol/L Carbon Dioxide (21-32) mmol/L Anion Gap (3-11) BUN (6-23) mg/dl Creatinine (0.6-1.2) mg/dl Est Cr Clr Drug Dosing ml/min Est GFR ( Amer) ml/min Est GFR (Non-Af Amer) ml/min BUN/Creatinine Ratio (10-20) Glucose (70-99(Fasting)) mg/dl POC Glucose (other) (70-99) mg/dl Calcium (8.5-10.1) mg/dl Ionized Calcium (1.12-1.32) mmol/L Phosphorus (2.5-4.9) mg/dl Magnesium 1.9 2.0 (1.7-2.4) mg/dl Total Bilirubin (0.2-1.0) mg/dl AST (13-39) U/L ALT (7-52) U/L Alkaline Phosphatase (34-104) U/L Total Creatine Kinase (26-192) U/L Troponin I High Sens 3389.1 H* (0-14) pg/ml Total Protein (6.0-8.3) gm/dl Albumin (3.4-5.0) gm/dl Globulin (2.5-4.0) gm/dl Albumin/Globulin Ratio (0.9-2) Procalcitonin (0-0.5) ng/ml Random Cortisol mcg/dl Random Vancomycin (10-20) mcg/ml Staphylococcus sp PCR (NotDetected) mecA/C-Methicil Resis Gene (NotDetected) Staph epidermidis (PCR) (NotDetected) Bld Cult ID Panel PCR (NotDetected) 12/02/22 12/02/22 12/02/22 Range/Units 14:22 12:09 09:43 WBC (4.8-10.8) K/ul RBC (3.93-5.22) M/uL Hgb (12.0-16.0) g/dl POC Hgb (12.0-16.0) g/dl Hct (34.1-44.9) % POC Hct (37-47) % MCV (80.0-100.0) fL MCH (25.0-34.0) pg MCHC (32.0-36.0) g/dL RDW Std Deviation (36.4-46.3) fL RDW Coeff of Cheri (11.5-14.5) % Plt Count (130-400) K/uL MPV (9.4-12.3) fL Immature Gran % (Auto) % Neut % (Auto) % Lymph % (Auto) % Grant % (Auto) % Eos % (Auto) % Baso % (Auto) % Neut # (Auto) (1.4-6.5) K/uL Lymph # (Auto) (1.2-3.4) K/uL Grant # (Auto) (0.24-0.82) K/uL Eos # (Auto) (0-0.50) K/uL Baso # (Auto) (0-0.2) K/uL Immature Gran # (Auto) (0.00-0.02) K/uL Absolute Nucleated RBC (0-0) K/uL Nucleated RBC % (auto) % Polychromasia APTT (21.0-31.0) Seconds PTT Ratio Sample Site POC pH (7.35-7.45) POC pCO2 (35-46) mmHg POC pO2 (80-95) mmHg POC HCO3 (19-24) martinez/L POC Total CO2 (24-31) mmol/L POC Base Excess (-9-1.8) martinez/L ABG pH (Temp Correct) (7.35-7.45) ABG pCO2 (Temp Corrct (35-46) mmHg POC ABG pO2 at Pt Temp POC ABG O2 Sat (90-95) % Rafal Test O2 Delivery Device POC O2 Rate POC FiO2 % Tidal Volume PEEP POC Sodium (135-144) mmol/L Sodium (136-145) mmol/L POC Potassium (3.3-5.0) mmol/L Potassium (3.5-5.1) mmol/L Chloride (98-107) mmol/L Carbon Dioxide (21-32) mmol/L Anion Gap (3-11) BUN (6-23) mg/dl Creatinine (0.6-1.2) mg/dl Est Cr Clr Drug Dosing ml/min Est GFR ( Amer) ml/min Est GFR (Non-Af Amer) ml/min BUN/Creatinine Ratio (10-20) Glucose (70-99(Fasting)) mg/dl POC Glucose (other) 134 H (70-99) mg/dl Calcium (8.5-10.1) mg/dl Ionized Calcium (1.12-1.32) mmol/L Phosphorus (2.5-4.9) mg/dl Magnesium (1.7-2.4) mg/dl Total Bilirubin (0.2-1.0) mg/dl AST (13-39) U/L ALT (7-52) U/L Alkaline Phosphatase (34-104) U/L Total Creatine Kinase (26-192) U/L Troponin I High Sens 3195.8 H* D (0-14) pg/ml Total Protein (6.0-8.3) gm/dl Albumin (3.4-5.0) gm/dl Globulin (2.5-4.0) gm/dl Albumin/Globulin Ratio (0.9-2) Procalcitonin (0-0.5) ng/ml Random Cortisol 19.15 mcg/dl Random Vancomycin (10-20) mcg/ml Staphylococcus sp PCR (NotDetected) mecA/C-Methicil Resis Gene (NotDetected) Staph epidermidis (PCR) (NotDetected) Bld Cult ID Panel PCR (NotDetected) 12/02/22 12/01/22 Range/Units 07:48 22:21 WBC (4.8-10.8) K/ul RBC (3.93-5.22) M/uL Hgb (12.0-16.0) g/dl POC Hgb (12.0-16.0) g/dl Hct (34.1-44.9) % POC Hct (37-47) % MCV (80.0-100.0) fL MCH (25.0-34.0) pg MCHC (32.0-36.0) g/dL RDW Std Deviation (36.4-46.3) fL RDW Coeff of Cheri (11.5-14.5) % Plt Count (130-400) K/uL MPV (9.4-12.3) fL Immature Gran % (Auto) % Neut % (Auto) % Lymph % (Auto) % Grant % (Auto) % Eos % (Auto) % Baso % (Auto) % Neut # (Auto) (1.4-6.5) K/uL Lymph # (Auto) (1.2-3.4) K/uL Grant # (Auto) (0.24-0.82) K/uL Eos # (Auto) (0-0.50) K/uL Baso # (Auto) (0-0.2) K/uL Immature Gran # (Auto) (0.00-0.02) K/uL Absolute Nucleated RBC (0-0) K/uL Nucleated RBC % (auto) % Polychromasia APTT (21.0-31.0) Seconds PTT Ratio Sample Site POC pH (7.35-7.45) POC pCO2 (35-46) mmHg POC pO2 (80-95) mmHg POC HCO3 (19-24) martinez/L POC Total CO2 (24-31) mmol/L POC Base Excess (-9-1.8) martinez/L ABG pH (Temp Correct) (7.35-7.45) ABG pCO2 (Temp Corrct (35-46) mmHg POC ABG pO2 at Pt Temp POC ABG O2 Sat (90-95) % Rafal Test O2 Delivery Device POC O2 Rate POC FiO2 % Tidal Volume PEEP POC Sodium (135-144) mmol/L Sodium (136-145) mmol/L POC Potassium (3.3-5.0) mmol/L Potassium (3.5-5.1) mmol/L Chloride (98-107) mmol/L Carbon Dioxide (21-32) mmol/L Anion Gap (3-11) BUN (6-23) mg/dl Creatinine (0.6-1.2) mg/dl Est Cr Clr Drug Dosing ml/min Est GFR ( Amer) ml/min Est GFR (Non-Af Amer) ml/min BUN/Creatinine Ratio (10-20) Glucose (70-99(Fasting)) mg/dl POC Glucose (other) (70-99) mg/dl Calcium (8.5-10.1) mg/dl Ionized Calcium (1.12-1.32) mmol/L Phosphorus (2.5-4.9) mg/dl Magnesium (1.7-2.4) mg/dl Total Bilirubin (0.2-1.0) mg/dl AST (13-39) U/L ALT (7-52) U/L Alkaline Phosphatase (34-104) U/L Total Creatine Kinase (26-192) U/L Troponin I High Sens 2433.5 H* (0-14) pg/ml Total Protein (6.0-8.3) gm/dl Albumin (3.4-5.0) gm/dl Globulin (2.5-4.0) gm/dl Albumin/Globulin Ratio (0.9-2) Procalcitonin (0-0.5) ng/ml Random Cortisol mcg/dl Random Vancomycin (10-20) mcg/ml Staphylococcus sp PCR DETECTED A (NotDetected) mecA/C-Methicil Resis Gene DETECTED A (NotDetected) Staph epidermidis (PCR) DETECTED A (NotDetected) Bld Cult ID Panel PCR See PCR Comment (NotDetected) Resident Activity Tracking Resident Involvement: Resident Care Provided Care Provided: Adult Hospital Medicine (1) Acute renal failure Acute renal failure type: unspecified Qualified Code(s): N17.9 - Acute kidney failure, unspecified (2) Right lower lobe pneumonia Pneumonia type: due to unspecified organism Qualified Code(s): J18.9 - Pneumonia, unspecified organism
[2022-12-03] MEDS: HEPARIN SODIUM/DEXTROSE 25,000 UNITS/500 ML BAG IV SCH (08:16)
[2022-12-03] MEDS: ICU Protocol for HYPERglycemia SCH ×4 (08:18→21:54)
[2022-12-03] MEDS: THIAMINE HCL 500 MG in SODIUM CHLORIDE 0.9% 50 ML IV SCH ×3 (08:20→21:43)
[2022-12-03] MEDS: FOLIC ACID 1 MG in SYRINGE 9.8 ML IV SCH (08:21)
--- NOTE | 2022-12-03 08:34 | Nephrology Progress Note ---
Date of Service December 03, 2022 Assessment & Plan (1) Acute renal failure: Plan: * ATN due to pneumonia/septic shock/rhabdomyolysis in the setting of ARB therapy * Remains oliguric, Cr stable overnight * NaHCO3 infusion completed. Serum bicarbonate is now acceptable * Recommend cautious supplementation of potassium and calcium * No acute indication for HD today. Monitor UO, PRP * Continue family discussions regarding goals of care (2) Right lower lobe pneumonia: Plan: * Continue Cefepime therapy (3) Acute respiratory failure with hypoxia: Plan: * Mechanical ventilation as per ICU team (4) Shock circulatory: Plan: * Pressors have been weaned off (5) Shock liver: (6) Rhabdomyolysis: Plan Plan of care discussed w/ ICU team this am. Await further discussion w/ family and Palliative Care. Admission and Anticipated Discharge Date Admission Date: December 01, 2022 Subjective Remains intubated, mechanically ventilated. FiO2 has increased to 45%. Pressors have been weaned to off. 200 cc UO in response to 80 mg Furosemide IV this am Review of Systems Review of Systems: Unobtainable due to endotracheal tube Physical Exam Constitutional: + ill appearing Eyes: PERRL, conjunctivae normal, anicteric sclerae ENMT: orotracheal intubation Neck: trachea midline, no thyromegaly Respiratory: coarse breath sounds bilaterally Cardiovascular: RRR, no murmur, no edema Gastrointestinal (Abdomen): Inspection/Auscultation: abdomen normal to inspection and + hypoactive bowel sounds Neurologic: sedated Genitourinary: Lizarraga catheter draining clear yellow urine Results & Data ([facility]) Vital Signs (Past 12 Hours) Vital Signs Temp Pulse Resp BP Pulse Ox Pulse Ox O2 Del Method 12/03/22 07:31 55 L 18 91 12/03/22 06:00 36.5 C 56 L 18 101/69 94 Mechanical Vent 12/03/22 05:00 36.5 C 55 L 18 99/69 L 93 12/03/22 04:00 36.5 C 54 L 18 99/66 L 94 12/03/22 04:00 56 L 117/67 12/03/22 04:00 12/03/22 02:03 94 12/03/22 03:31 36.6 C 56 L 18 107/57 L 94 Mechanical Vent 12/03/22 03:00 36.6 C 54 L 18 100/72 93 Mechanical Vent 12/03/22 02:30 36.6 C 54 L 18 107/65 93 Mechanical Vent 12/03/22 02:00 36.6 C 54 L 18 93 12/03/22 02:00 98/64 L Mechanical Vent 12/03/22 01:30 101/62 Mechanical Vent 12/03/22 01:30 36.7 C 54 L 18 94 Mechanical Vent 12/03/22 01:00 36.8 C 54 L 18 93 Mechanical Vent 12/03/22 01:00 100/61 Mechanical Vent 12/03/22 03:15 54 L 18 93 12/03/22 00:30 96/63 L 12/03/22 00:30 36.9 C 55 L 18 93 12/03/22 00:00 36.9 C 56 L 22 90 Mechanical Vent 12/03/22 00:00 101/63 12/02/22 23:30 105/66 12/02/22 23:30 37.0 C 58 L 22 90 Mechanical Vent 12/02/22 23:00 37.1 C 59 L 22 92 Mechanical Vent 12/02/22 23:00 109/70 12/02/22 22:30 117/76 12/02/22 22:30 37.1 C 59 L 22 91 Mechanical Vent 12/02/22 22:00 37.1 C 59 L 22 95 12/02/22 22:00 145/84 H 12/02/22 21:30 37.2 C 59 L 22 94 12/02/22 21:30 128/85 12/02/22 21:00 37.2 C 59 L 22 94 12/02/22 21:00 119/80 12/03/22 00:00 12/03/22 00:00 58 L 111/60 12/03/22 00:00 58 L 12/02/22 23:20 64 22 91 12/03/22 00:04 18 O2 Del Method FiO2 12/03/22 07:31 45 12/03/22 06:00 45 12/03/22 05:00 45 12/03/22 04:00 45 12/03/22 04:00 12/03/22 04:00 45 12/03/22 02:03 Mechanical Vent 12/03/22 03:31 50 12/03/22 03:00 50 12/03/22 02:30 50 12/03/22 02:00 12/03/22 02:00 60 12/03/22 01:30 60 12/03/22 01:30 60 12/03/22 01:00 60 12/03/22 01:00 60 12/03/22 03:15 50 12/03/22 00:30 12/03/22 00:30 12/03/22 00:00 60 12/03/22 00:00 60 12/02/22 23:30 55 12/02/22 23:30 55 12/02/22 23:00 45 12/02/22 23:00 45 12/02/22 22:30 45 12/02/22 22:30 35 12/02/22 22:00 35 12/02/22 22:00 35 12/02/22 21:30 35 12/02/22 21:30 35 12/02/22 21:00 35 12/02/22 21:00 35 12/03/22 00:00 60 12/03/22 00:00 12/03/22 00:00 12/02/22 23:20 45 12/03/22 00:04 Laboratory Results Laboratory Tests 12/03/22 12/03/22 12/03/22 04:58 04:58 04:58 WBC 5.68 Hgb 9.2 L Hct 25.2 L Plt Count 144 Sodium 136 Potassium 3.2 L Chloride 96 L Carbon Dioxide 26 BUN 59 H Creatinine 4.57 H* Glucose 142 H Calcium 6.3 L Phosphorus 5.6 H Total Bilirubin 0.7 D AST 2287 H ALT 984 H Alkaline Phosphatase 123 H Total Creatine Kinase 838 H Albumin 2.8 L PG Care Time/CCT Total # of Minutes Spent Total Time Spent with Patient: Total time spent is greater than 50% in coordination of care (as documented) at patient's floor/unit and/or counseling patient: Coding Level of Care Code 58750 SUB INP/OBS CARE 3/50MIN Diagnoses Acute renal failure N17.9 Acute renal failure type: unspecified Right lower lobe pneumonia J18.9 Pneumonia type: due to unspecified organism Acute respiratory failure with hypoxia J96.01 Shock circulatory R57.9 Shock liver K72.00 Rhabdomyolysis M62.82 Rhabdomyolysis type: non-traumatic (1) Acute renal failure Acute renal failure type: unspecified Qualified Code(s): N17.9 - Acute kidney failure, unspecified (2) Rhabdomyolysis Rhabdomyolysis type: non-traumatic Qualified Code(s): M62.82 - Rhabdomyolysis (3) Right lower lobe pneumonia Pneumonia type: due to unspecified organism Qualified Code(s): J18.9 - Pneumonia, unspecified organism
--- NOTE | 2022-12-03 08:53 | XRay Report ---
XR chest 1V portable CLINICAL HISTORY: while intubated- evaluate lines and lung john COMPARISON STUDY: Chest CT November 2022 and chest radiograph December 02, 2022. FINDINGS: Tip of endotracheal tube is 2.7 cm above the raghu. Tip of nasogastric tube is at least wi thin the body of the stomach. There is no pneumothorax. Cardiomegaly is again noted. Bilateral pleura l effusions and bibasilar opacities persist. The appearance of the chest is similar to prior exam. Pu lmonary edema is again noted. IMPRESSION: 1. Satisfactory positioning of the endotracheal tube. 2. Persistent bilateral pleural effusions and bibasilar opacities which could reflect pneumonia or at electasis. 3. Cardiomegaly with stable pulmonary edema. ACT 112: Negative or not required by law. Electronically signed by: Hakeem Rico M.D. 12/03/2022 8:52 AM
[2022-12-03] MEDS ORDERED: CALCIUM CHLORIDE 10% 1,000 MG in DEXTROSE 5% 50 ML IV STA ×2 (09:21→09:22)
[2022-12-03] MEDS: FLUDROCORTISONE ACETATE 0.1 MG TAB PO SCH (09:28)
[2022-12-03] MEDS ORDERED: MAGNESIUM SULFATE / D5W 1 GM/100 ML BAG IV ONE (09:33)
[2022-12-03] MEDS ORDERED: STAT IV Infusion **Titration per Protocol STA (09:37)
[2022-12-03 09:57] LABS: Allen Test Pos (Pos); Base Excess ABG 4.4 mEq/L (-9-1.8); HCO3 ABG 28 mmol/L (19-24); Oxygen Saturation ABG 98.3 % (90-95); PCO2 ABG 39 mmHg (35-46); PO2 ABG 92 mmHg (80-95); pH ABG 7.47 (7.35-7.45)
--- NOTE | 2022-12-03 10:31 | Hospitalist Progress Note ---
Date of Service December 03, 2022 Assessment & Plan (1) Septic shock: Plan: source -right-sided pneumonia Now with septicemia-growing Staphylococcus epidermidis in 4/4 bottles. Sputum culture now also with Staphylococcus species Possibility the apical thrombus also could have vegetation Blood pressures are improved, now weaned off vasopressors except remains on IV hydrocortisone and started on fludrocortisone With acute kidney injury, shock liver, encephalopathy, respiratory failure- multiorgan system failure -Cont IV cefepime/vanco -Follow final blood culture sensitivities -Follow sputum culture final ID and sensitivities -Repeat blood cultures on 12/03 -Appreciate infectious disease consultation (2) Acute renal failure: Plan: severe, with resulting hyperkalemia significant oliguria since admission now improving today with giving IV Lasix on 12/03 Creatinine up slightly to 4.57 Hyperkalemia now resolved after isotonic bicarbonate drip likely due to sepsis-associated ATN, rhabdomyolysis, in the setting of ARB therapy nephrology consulted for assistance if renal function cont to worsen & family desires aggressive care then she may need HD Follow BMP in the morning (3) Left ventricular apical thrombus: Plan: large LV thrombus; vegetation cannot be excluded-on antibiotics heparin drip continues and then eventually switch to DOAC x3 months minimum Cardiology consult appreciated-could be due to low flow state given poor EF of 25-30% -Repeat echocardiogram in 2 to 3 days as per my discussion with cardiology to see if EF is improved i.e. Takotsubo's Because cardiomyopathy could be secondary to NSTEMI given elevated troponin, cardiology recommends starting aspirin low-dose daily (4) Acute metabolic encephalopathy: Plan: numerous causes - sepsis/septic shock, ARNALDO, acute resp failure, etc Remains sedated on ventilator (5) Acute respiratory failure with hypoxia: Plan: multi-organ failure with pneumonia, bacteremia, ARNALDO, etc all to blame appreciate vent management by pulmonary/critical care Following ABG (6) Rhabdomyolysis: Plan: 2nd to fall/laying on ground at home CPK is only mildly elevated - doubt cause of ARNALDO repeat CPK about the same in the 800s (7) Hypocalcemia: Plan: severe 2nd to Ibrance? 2nd to low magnesium? other cause? s/p replacement per ICU protocol-giving another 2 g of calcium chloride today likely the major driver helper of prolonged QTc seen on EKG follow levels (8) Right lower lobe pneumonia: Plan: son reports he found vomit on his mother at home prior to EMS arrival thus - aspiration pneumonia? MRSA swab negative cont cefepime, vancomycin Follow sputum culture-growing Staphylococcus species (9) Elevated troponin: Plan: cannot rule out ACS/NSTEMI in light of echo findings with reduced EF and wall motion abnormalities vs myocardial demand ischemia remains on heparin drip for apical thrombus Troponin trended downward after peaking at 3389 No ischemic changes on ECG Plan to repeat echocardiogram in 2 to 3 days Start aspirin 81 mg daily (10) History of bilateral breast cancer: Plan: initial dx early with subsequent recurrence and metastatic disease (11) Regular alcohol consumption: Plan: thiamine/folate watch for symptoms/signs of withdrawal (12) Cardiomyopathy: Plan: NEW, as seen on echo EF <30% etiology? ischemic? Takotsubo's? other? defer management to cardiology (13) Type II diabetes mellitus: Plan: previous high a1c's several years ago now a1c <6% resolved hyperglycemia protocol while in ICU (14) Macrocytic anemia: Plan: likely 2nd to etoh consumption cannot rule out B12/folate/copper deficiencies, etc B12 level low at 259 1 year ago and folate level quite low at 2 last year as well serial CBC Continue folic acid 1 mg IV once daily Eventually will recheck B12 levels (15) Shock liver: Plan: LFT pattern c/w acute liver injury/shock liver-worse today serial LFTs, INR Blood pressures are now improved, expect this to resolve (16) Hypomagnesemia: Plan: replaced resolved likely contributed to prolonged QTc (17) Prolonged QT interval: Plan: 2nd to low mag, low calcium telemetry monitoring replace electrolytes Plan DVT prophylaxis-Heparin drip Disposition-continued stay in ICU Admission and Anticipated Discharge Date Admission Date: December 01, 2022 Subjective Weaned off pressors. Converted to NSR overnight. No BM. Starting tube feeds today. Given IV lasix this AM for oliguria and ARNALDO, now UOP is picking up as per RN. Pt remains sedated, intubated. Review of Systems Review of Systems: Unobtainable due to endotracheal tube and Unobtainable due to reduced consciousness Physical Exam Constitutional: WD/WN, vitals as above Eyes: PERRL ENMT: Mouth: + oropharynx abnormality (ETT in place) Neck: trachea midline, no thyromegaly Respiratory: normal respiratory effort, lungs clear to auscultation Cardiovascular: RRR, no murmur, no edema Gastrointestinal (Abdomen): normal bowel sounds, soft, nontender, no hepatosplenomegaly Inspection/Auscultation: + abdomen distended (mild) Musculoskeletal: Extremities: extremities normal to inspection; no cyanosis and no clubbing Skin: no rashes, warm and dry Neurologic: Sedated, but does stir slightly with verbal stimulus Genitourinary: Lizarraga catheter in place Lymphatic: no lymphedema Results & Data Results & Data ([facility]) Vital Signs (Past 12 Hours) Vital Signs Temp Pulse Resp BP Pulse Ox Pulse Ox O2 Del Method 12/03/22 07:31 55 L 18 91 12/03/22 06:00 36.5 C 56 L 18 101/69 94 Mechanical Vent 12/03/22 05:00 36.5 C 55 L 18 99/69 L 93 12/03/22 04:00 36.5 C 54 L 18 99/66 L 94 12/03/22 04:00 56 L 117/67 12/03/22 04:00 12/03/22 02:03 94 12/03/22 03:31 36.6 C 56 L 18 107/57 L 94 Mechanical Vent 12/03/22 03:00 36.6 C 54 L 18 100/72 93 Mechanical Vent 12/03/22 02:30 36.6 C 54 L 18 107/65 93 Mechanical Vent 12/03/22 02:00 36.6 C 54 L 18 93 12/03/22 02:00 98/64 L Mechanical Vent 12/03/22 01:30 101/62 Mechanical Vent 12/03/22 01:30 36.7 C 54 L 18 94 Mechanical Vent 12/03/22 01:00 36.8 C 54 L 18 93 Mechanical Vent 12/03/22 01:00 100/61 Mechanical Vent 12/03/22 03:15 54 L 18 93 12/03/22 00:30 96/63 L 12/03/22 00:30 36.9 C 55 L 18 93 12/03/22 00:00 36.9 C 56 L 22 90 Mechanical Vent 12/03/22 00:00 101/63 12/02/22 23:30 105/66 12/02/22 23:30 37.0 C 58 L 22 90 Mechanical Vent 12/02/22 23:00 37.1 C 59 L 22 92 Mechanical Vent 12/02/22 23:00 109/70 12/02/22 22:30 117/76 12/02/22 22:30 37.1 C 59 L 22 91 Mechanical Vent 12/03/22 00:00 12/03/22 00:00 58 L 111/60 12/03/22 00:00 58 L 12/02/22 23:20 64 22 91 12/03/22 00:04 18 O2 Del Method FiO2 12/03/22 07:31 45 12/03/22 06:00 45 12/03/22 05:00 45 12/03/22 04:00 45 12/03/22 04:00 12/03/22 04:00 45 12/03/22 02:03 Mechanical Vent 12/03/22 03:31 50 12/03/22 03:00 50 12/03/22 02:30 50 12/03/22 02:00 12/03/22 02:00 60 12/03/22 01:30 60 12/03/22 01:30 60 12/03/22 01:00 60 12/03/22 01:00 60 12/03/22 03:15 50 12/03/22 00:30 12/03/22 00:30 12/03/22 00:00 60 12/03/22 00:00 60 12/02/22 23:30 55 12/02/22 23:30 55 12/02/22 23:00 45 12/02/22 23:00 45 12/02/22 22:30 45 12/02/22 22:30 35 12/03/22 00:00 60 12/03/22 00:00 12/03/22 00:00 12/02/22 23:20 45 12/03/22 00:04 Laboratory Results 12/03/22 12/03/22 12/03/22 Range/Units 09:44 08:32 08:12 WBC (4.8-10.8) K/ul RBC (3.93-5.22) M/uL Hgb (12.0-16.0) g/dl POC Hgb (12.0-16.0) g/dl Hct (34.1-44.9) % POC Hct (37-47) % MCV (80.0-100.0) fL MCH (25.0-34.0) pg MCHC (32.0-36.0) g/dL RDW Std Deviation (36.4-46.3) fL RDW Coeff of Cheri (11.5-14.5) % Plt Count (130-400) K/uL MPV (9.4-12.3) fL Immature Gran % (Auto) % Neut % (Auto) % Lymph % (Auto) % [place] % (Auto) % Eos % (Auto) % Baso % (Auto) % Neut # (Auto) (1.4-6.5) K/uL Lymph # (Auto) (1.2-3.4) K/uL [place] # (Auto) (0.24-0.82) K/uL Eos # (Auto) (0-0.50) K/uL Baso # (Auto) (0-0.2) K/uL Immature Gran # (Auto) (0.00-0.02) K/uL Absolute Nucleated RBC (0-0) K/uL Nucleated RBC % (auto) % Polychromasia APTT (21.0-31.0) Seconds PTT Ratio Sample Site POC pH (7.35-7.45) POC pCO2 (35-46) mmHg POC pO2 (80-95) mmHg POC HCO3 (19-24) martinez/L POC Total CO2 (24-31) mmol/L POC Base Excess (-9-1.8) martinez/L ABG pH 7.47 H (7.35-7.45) ABG pH (Temp Correct) (7.35-7.45) ABG pCO2 39 (35-46) mmHg ABG pCO2 (Temp Corrct (35-46) mmHg ABG pO2 92 (80-95) mmHg POC ABG pO2 at Pt Temp ABG HCO3 28 H (19-24) mmol/L POC ABG O2 Sat (90-95) % ABG O2 Saturation 98.3 H (90-95) % ABG Base Excess 4.4 H (-9-1.8) mEq/L Rafal Test Pos Oxygen Given 45% O2 Delivery Device POC O2 Rate POC FiO2 % Tidal Volume PEEP POC Sodium (135-144) mmol/L Sodium (136-145) mmol/L POC Potassium (3.3-5.0) mmol/L Potassium (3.5-5.1) mmol/L Chloride (98-107) mmol/L Carbon Dioxide (21-32) mmol/L Anion Gap (3-11) BUN (6-23) mg/dl Creatinine (0.6-1.2) mg/dl Est Cr Clr Drug Dosing ml/min Est GFR ( Amer) ml/min Est GFR (Non-Af Amer) ml/min BUN/Creatinine Ratio (10-20) Glucose (70-99(Fasting)) mg/dl POC Glucose 162 H (70-99) mg/dl POC Glucose (other) (70-99) mg/dl Lactate 1.5 (0.4-2.0) mmol/L Calcium (8.5-10.1) mg/dl Ionized Calcium (1.12-1.32) mmol/L Phosphorus (2.5-4.9) mg/dl Magnesium (1.7-2.4) mg/dl Total Bilirubin (0.2-1.0) mg/dl AST (13-39) U/L ALT (7-52) U/L Alkaline Phosphatase (34-104) U/L Total Creatine Kinase (26-192) U/L Troponin I High Sens (0-14) pg/ml Total Protein (6.0-8.3) gm/dl Albumin (3.4-5.0) gm/dl Globulin (2.5-4.0) gm/dl Albumin/Globulin Ratio (0.9-2) Procalcitonin (0-0.5) ng/ml Random Cortisol mcg/dl Random Vancomycin (10-20) mcg/ml Staphylococcus sp PCR (NotDetected) mecA/C-Methicil Resis Gene (NotDetected) Staph epidermidis (PCR) (NotDetected) Bld Cult ID Panel PCR (NotDetected) 12/03/22 12/03/22 12/03/22 Range/Units 07:32 04:58 04:58 WBC (4.8-10.8) K/ul RBC (3.93-5.22) M/uL Hgb (12.0-16.0) g/dl POC Hgb 8.8 L (12.0-16.0) g/dl Hct (34.1-44.9) % POC Hct 26 L (37-47) % MCV (80.0-100.0) fL MCH (25.0-34.0) pg MCHC (32.0-36.0) g/dL RDW Std Deviation (36.4-46.3) fL RDW Coeff of Cheri (11.5-14.5) % Plt Count (130-400) K/uL MPV (9.4-12.3) fL Immature Gran % (Auto) % Neut % (Auto) % Lymph % (Auto) % [place] % (Auto) % Eos % (Auto) % Baso % (Auto) % Neut # (Auto) (1.4-6.5) K/uL Lymph # (Auto) (1.2-3.4) K/uL [place] # (Auto) (0.24-0.82) K/uL Eos # (Auto) (0-0.50) K/uL Baso # (Auto) (0-0.2) K/uL Immature Gran # (Auto) (0.00-0.02) K/uL Absolute Nucleated RBC (0-0) K/uL Nucleated RBC % (auto) % Polychromasia APTT 63.3 H* (21.0-31.0) Seconds PTT Ratio 2.3 Sample Site Art Line POC pH 7.53 H* (7.35-7.45) POC pCO2 33 L (35-46) mmHg POC pO2 64 L (80-95) mmHg POC HCO3 28 H (19-24) martinez/L POC Total CO2 29 (24-31) mmol/L POC Base Excess 5.0 H (-9-1.8) martinez/L ABG pH (7.35-7.45) ABG pH (Temp Correct) 7.534 H* (7.35-7.45) ABG pCO2 (35-46) mmHg ABG pCO2 (Temp Corrct 33 L (35-46) mmHg ABG pO2 (80-95) mmHg POC ABG pO2 at Pt Temp 62 ABG HCO3 (19-24) mmol/L POC ABG O2 Sat 95.0 (90-95) % ABG O2 Saturation (90-95) % ABG Base Excess (-9-1.8) mEq/L Rafal Test NA Oxygen Given O2 Delivery Device Ventilator POC O2 Rate 18 POC FiO2 45 % Tidal Volume 400 PEEP 6 POC Sodium 135 (135-144) mmol/L Sodium (136-145) mmol/L POC Potassium 3.0 L (3.3-5.0) mmol/L Potassium (3.5-5.1) mmol/L Chloride (98-107) mmol/L Carbon Dioxide (21-32) mmol/L Anion Gap (3-11) BUN (6-23) mg/dl Creatinine (0.6-1.2) mg/dl Est Cr Clr Drug Dosing ml/min Est GFR ( Amer) ml/min Est GFR (Non-Af Amer) ml/min BUN/Creatinine Ratio (10-20) Glucose (70-99(Fasting)) mg/dl POC Glucose (70-99) mg/dl POC Glucose (other) (70-99) mg/dl Lactate (0.4-2.0) mmol/L Calcium (8.5-10.1) mg/dl Ionized Calcium (1.12-1.32) mmol/L Phosphorus (2.5-4.9) mg/dl Magnesium (1.7-2.4) mg/dl Total Bilirubin (0.2-1.0) mg/dl AST (13-39) U/L ALT (7-52) U/L Alkaline Phosphatase (34-104) U/L Total Creatine Kinase 838 H (26-192) U/L Troponin I High Sens (0-14) pg/ml Total Protein (6.0-8.3) gm/dl Albumin (3.4-5.0) gm/dl Globulin (2.5-4.0) gm/dl Albumin/Globulin Ratio (0.9-2) Procalcitonin (0-0.5) ng/ml Random Cortisol mcg/dl Random Vancomycin (10-20) mcg/ml Staphylococcus sp PCR (NotDetected) mecA/C-Methicil Resis Gene (NotDetected) Staph epidermidis (PCR) (NotDetected) Bld Cult ID Panel PCR (NotDetected) 12/03/22 12/03/22 12/03/22 Range/Units 04:58 04:58 04:58 WBC 5.68 (4.8-10.8) K/ul RBC 2.36 L (3.93-5.22) M/uL Hgb 9.2 L (12.0-16.0) g/dl POC Hgb (12.0-16.0) g/dl Hct 25.2 L (34.1-44.9) % POC Hct (37-47) % MCV 106.8 H D (80.0-100.0) fL MCH 39.0 H (25.0-34.0) pg MCHC 36.5 H (32.0-36.0) g/dL RDW Std Deviation 55.7 H (36.4-46.3) fL RDW Coeff of Cheri 14.5 (11.5-14.5) % Plt Count 144 (130-400) K/uL MPV 11.4 (9.4-12.3) fL Immature Gran % (Auto) 1.1 % Neut % (Auto) 91.6 % Lymph % (Auto) 5.5 % [place] % (Auto) 1.6 % Eos % (Auto) 0.0 % Baso % (Auto) 0.2 % Neut # (Auto) 5.21 (1.4-6.5) K/uL Lymph # (Auto) 0.31 L (1.2-3.4) K/uL [place] # (Auto) 0.09 L (0.24-0.82) K/uL Eos # (Auto) 0.00 (0-0.50) K/uL Baso # (Auto) 0.01 (0-0.2) K/uL Immature Gran # (Auto) 0.06 H (0.00-0.02) K/uL Absolute Nucleated RBC 0.24 H (0-0) K/uL Nucleated RBC % (auto) 4.2 % Polychromasia 1+ APTT (21.0-31.0) Seconds PTT Ratio Sample Site POC pH (7.35-7.45) POC pCO2 (35-46) mmHg POC pO2 (80-95) mmHg POC HCO3 (19-24) martinez/L POC Total CO2 (24-31) mmol/L POC Base Excess (-9-1.8) martinez/L ABG pH (7.35-7.45) ABG pH (Temp Correct) (7.35-7.45) ABG pCO2 (35-46) mmHg ABG pCO2 (Temp Corrct (35-46) mmHg ABG pO2 (80-95) mmHg POC ABG pO2 at Pt Temp ABG HCO3 (19-24) mmol/L POC ABG O2 Sat (90-95) % ABG O2 Saturation (90-95) % ABG Base Excess (-9-1.8) mEq/L Rafal Test Oxygen Given O2 Delivery Device POC O2 Rate POC FiO2 % Tidal Volume PEEP POC Sodium (135-144) mmol/L Sodium 136 (136-145) mmol/L POC Potassium (3.3-5.0) mmol/L Potassium 3.2 L (3.5-5.1) mmol/L Chloride 96 L (98-107) mmol/L Carbon Dioxide 26 (21-32) mmol/L Anion Gap 14 H (3-11) BUN 59 H (6-23) mg/dl Creatinine 4.57 H* (0.6-1.2) mg/dl Est Cr Clr Drug Dosing 11.5 ml/min Est GFR ( Amer) 10.5 ml/min Est GFR (Non-Af Amer) 9.1 ml/min BUN/Creatinine Ratio 12.9 (10-20) Glucose 142 H (70-99(Fasting)) mg/dl POC Glucose (70-99) mg/dl POC Glucose (other) (70-99) mg/dl Lactate (0.4-2.0) mmol/L Calcium 6.3 L (8.5-10.1) mg/dl Ionized Calcium (1.12-1.32) mmol/L Phosphorus 5.6 H (2.5-4.9) mg/dl Magnesium 2.4 (1.7-2.4) mg/dl Total Bilirubin 0.7 D (0.2-1.0) mg/dl AST 2287 H (13-39) U/L ALT 984 H (7-52) U/L Alkaline Phosphatase 123 H (34-104) U/L Total Creatine Kinase (26-192) U/L Troponin I High Sens (0-14) pg/ml Total Protein 5.5 L (6.0-8.3) gm/dl Albumin 2.8 L (3.4-5.0) gm/dl Globulin 2.7 (2.5-4.0) gm/dl Albumin/Globulin Ratio 1.0 (0.9-2) Procalcitonin 4.84 H (0-0.5) ng/ml Random Cortisol mcg/dl Random Vancomycin (10-20) mcg/ml Staphylococcus sp PCR (NotDetected) mecA/C-Methicil Resis Gene (NotDetected) Staph epidermidis (PCR) (NotDetected) Bld Cult ID Panel PCR (NotDetected) 12/03/22 12/03/22 12/03/22 Range/Units 04:58 04:58 00:43 WBC (4.8-10.8) K/ul RBC (3.93-5.22) M/uL Hgb (12.0-16.0) g/dl POC Hgb (12.0-16.0) g/dl Hct (34.1-44.9) % POC Hct (37-47) % MCV (80.0-100.0) fL MCH (25.0-34.0) pg MCHC (32.0-36.0) g/dL RDW Std Deviation (36.4-46.3) fL RDW Coeff of Cheri (11.5-14.5) % Plt Count (130-400) K/uL MPV (9.4-12.3) fL Immature Gran % (Auto) % Neut % (Auto) % Lymph % (Auto) % [place] % (Auto) % Eos % (Auto) % Baso % (Auto) % Neut # (Auto) (1.4-6.5) K/uL Lymph # (Auto) (1.2-3.4) K/uL [place] # (Auto) (0.24-0.82) K/uL Eos # (Auto) (0-0.50) K/uL Baso # (Auto) (0-0.2) K/uL Immature Gran # (Auto) (0.00-0.02) K/uL Absolute Nucleated RBC (0-0) K/uL Nucleated RBC % (auto) % Polychromasia APTT (21.0-31.0) Seconds PTT Ratio Sample Site POC pH (7.35-7.45) POC pCO2 (35-46) mmHg POC pO2 (80-95) mmHg POC HCO3 (19-24) martinez/L POC Total CO2 (24-31) mmol/L POC Base Excess (-9-1.8) martinez/L ABG pH (7.35-7.45) ABG pH (Temp Correct) (7.35-7.45) ABG pCO2 (35-46) mmHg ABG pCO2 (Temp Corrct (35-46) mmHg ABG pO2 (80-95) mmHg POC ABG pO2 at Pt Temp ABG HCO3 (19-24) mmol/L POC ABG O2 Sat (90-95) % ABG O2 Saturation (90-95) % ABG Base Excess (-9-1.8) mEq/L Rafal Test Oxygen Given O2 Delivery Device POC O2 Rate POC FiO2 % Tidal Volume PEEP POC Sodium (135-144) mmol/L Sodium (136-145) mmol/L POC Potassium (3.3-5.0) mmol/L Potassium (3.5-5.1) mmol/L Chloride (98-107) mmol/L Carbon Dioxide (21-32) mmol/L Anion Gap (3-11) BUN (6-23) mg/dl Creatinine (0.6-1.2) mg/dl Est Cr Clr Drug Dosing ml/min Est GFR ( Amer) ml/min Est GFR (Non-Af Amer) ml/min BUN/Creatinine Ratio (10-20) Glucose (70-99(Fasting)) mg/dl POC Glucose (70-99) mg/dl POC Glucose (other) (70-99) mg/dl Lactate (0.4-2.0) mmol/L Calcium (8.5-10.1) mg/dl Ionized Calcium 0.78 L (1.12-1.32) mmol/L Phosphorus (2.5-4.9) mg/dl Magnesium (1.7-2.4) mg/dl Total Bilirubin (0.2-1.0) mg/dl AST (13-39) U/L ALT (7-52) U/L Alkaline Phosphatase (34-104) U/L Total Creatine Kinase (26-192) U/L Troponin I High Sens 2518.5 H* D (0-14) pg/ml Total Protein (6.0-8.3) gm/dl Albumin (3.4-5.0) gm/dl Globulin (2.5-4.0) gm/dl Albumin/Globulin Ratio (0.9-2) Procalcitonin (0-0.5) ng/ml Random Cortisol mcg/dl Random Vancomycin 17.7 (10-20) mcg/ml Staphylococcus sp PCR (NotDetected) mecA/C-Methicil Resis Gene (NotDetected) Staph epidermidis (PCR) (NotDetected) Bld Cult ID Panel PCR (NotDetected) 12/03/22 12/02/22 12/02/22 Range/Units 00:01 19:54 19:54 WBC (4.8-10.8) K/ul RBC (3.93-5.22) M/uL Hgb (12.0-16.0) g/dl POC Hgb (12.0-16.0) g/dl Hct (34.1-44.9) % POC Hct (37-47) % MCV (80.0-100.0) fL MCH (25.0-34.0) pg MCHC (32.0-36.0) g/dL RDW Std Deviation (36.4-46.3) fL RDW Coeff of Cheri (11.5-14.5) % Plt Count (130-400) K/uL MPV (9.4-12.3) fL Immature Gran % (Auto) % Neut % (Auto) % Lymph % (Auto) % [place] % (Auto) % Eos % (Auto) % Baso % (Auto) % Neut # (Auto) (1.4-6.5) K/uL Lymph # (Auto) (1.2-3.4) K/uL [place] # (Auto) (0.24-0.82) K/uL Eos # (Auto) (0-0.50) K/uL Baso # (Auto) (0-0.2) K/uL Immature Gran # (Auto) (0.00-0.02) K/uL Absolute Nucleated RBC (0-0) K/uL Nucleated RBC % (auto) % Polychromasia APTT (21.0-31.0) Seconds PTT Ratio Sample Site Art Line POC pH 7.53 H* (7.35-7.45) POC pCO2 30 L (35-46) mmHg POC pO2 63 L (80-95) mmHg POC HCO3 25 H (19-24) martinez/L POC Total CO2 26 (24-31) mmol/L POC Base Excess 2.0 H (-9-1.8) martinez/L ABG pH (7.35-7.45) ABG pH (Temp Correct) (7.35-7.45) ABG pCO2 (35-46) mmHg ABG pCO2 (Temp Corrct (35-46) mmHg ABG pO2 (80-95) mmHg POC ABG pO2 at Pt Temp ABG HCO3 (19-24) mmol/L POC ABG O2 Sat 94.0 (90-95) % ABG O2 Saturation (90-95) % ABG Base Excess (-9-1.8) mEq/L Rafal Test NA Oxygen Given O2 Delivery Device Ventilator POC O2 Rate 22 POC FiO2 60 % Tidal Volume 400 PEEP 8 POC Sodium (135-144) mmol/L Sodium (136-145) mmol/L POC Potassium (3.3-5.0) mmol/L Potassium (3.5-5.1) mmol/L Chloride (98-107) mmol/L Carbon Dioxide (21-32) mmol/L Anion Gap (3-11) BUN (6-23) mg/dl Creatinine (0.6-1.2) mg/dl Est Cr Clr Drug Dosing ml/min Est GFR ( Amer) ml/min Est GFR (Non-Af Amer) ml/min BUN/Creatinine Ratio (10-20) Glucose (70-99(Fasting)) mg/dl POC Glucose (70-99) mg/dl POC Glucose (other) (70-99) mg/dl Lactate (0.4-2.0) mmol/L Calcium (8.5-10.1) mg/dl Ionized Calcium 0.72 L* (1.12-1.32) mmol/L Phosphorus (2.5-4.9) mg/dl Magnesium 1.9 (1.7-2.4) mg/dl Total Bilirubin (0.2-1.0) mg/dl AST (13-39) U/L ALT (7-52) U/L Alkaline Phosphatase (34-104) U/L Total Creatine Kinase (26-192) U/L Troponin I High Sens (0-14) pg/ml Total Protein (6.0-8.3) gm/dl Albumin (3.4-5.0) gm/dl Globulin (2.5-4.0) gm/dl Albumin/Globulin Ratio (0.9-2) Procalcitonin (0-0.5) ng/ml Random Cortisol mcg/dl Random Vancomycin (10-20) mcg/ml Staphylococcus sp PCR (NotDetected) mecA/C-Methicil Resis Gene (NotDetected) Staph epidermidis (PCR) (NotDetected) Bld Cult ID Panel PCR (NotDetected) 12/02/22 12/02/22 12/02/22 Range/Units 19:54 18:55 17:27 WBC (4.8-10.8) K/ul RBC (3.93-5.22) M/uL Hgb (12.0-16.0) g/dl POC Hgb (12.0-16.0) g/dl Hct (34.1-44.9) % POC Hct (37-47) % MCV (80.0-100.0) fL MCH (25.0-34.0) pg MCHC (32.0-36.0) g/dL RDW Std Deviation (36.4-46.3) fL RDW Coeff of Cheri (11.5-14.5) % Plt Count (130-400) K/uL MPV (9.4-12.3) fL Immature Gran % (Auto) % Neut % (Auto) % Lymph % (Auto) % [place] % (Auto) % Eos % (Auto) % Baso % (Auto) % Neut # (Auto) (1.4-6.5) K/uL Lymph # (Auto) (1.2-3.4) K/uL [place] # (Auto) (0.24-0.82) K/uL Eos # (Auto) (0-0.50) K/uL Baso # (Auto) (0-0.2) K/uL Immature Gran # (Auto) (0.00-0.02) K/uL Absolute Nucleated RBC (0-0) K/uL Nucleated RBC % (auto) % Polychromasia APTT 59.0 H* (21.0-31.0) Seconds PTT Ratio 2.1 Sample Site POC pH (7.35-7.45) POC pCO2 (35-46) mmHg POC pO2 (80-95) mmHg POC HCO3 (19-24) martinez/L POC Total CO2 (24-31) mmol/L POC Base Excess (-9-1.8) martinez/L ABG pH (7.35-7.45) ABG pH (Temp Correct) (7.35-7.45) ABG pCO2 (35-46) mmHg ABG pCO2 (Temp Corrct (35-46) mmHg ABG pO2 (80-95) mmHg POC ABG pO2 at Pt Temp ABG HCO3 (19-24) mmol/L POC ABG O2 Sat (90-95) % ABG O2 Saturation (90-95) % ABG Base Excess (-9-1.8) mEq/L Rafal Test Oxygen Given O2 Delivery Device POC O2 Rate POC FiO2 % Tidal Volume PEEP POC Sodium (135-144) mmol/L Sodium 138 (136-145) mmol/L POC Potassium (3.3-5.0) mmol/L Potassium 3.5 D (3.5-5.1) mmol/L Chloride 100 (98-107) mmol/L Carbon Dioxide 23 (21-32) mmol/L Anion Gap 15 H (3-11) BUN 58 H (6-23) mg/dl Creatinine 4.56 H* D (0.6-1.2) mg/dl Est Cr Clr Drug Dosing 11.5 ml/min Est GFR ( Amer) 10.6 ml/min Est GFR (Non-Af Amer) 9.1 ml/min BUN/Creatinine Ratio 12.7 (10-20) Glucose 128 H (70-99(Fasting)) mg/dl POC Glucose (70-99) mg/dl POC Glucose (other) 131 H (70-99) mg/dl Lactate (0.4-2.0) mmol/L Calcium 6.2 L (8.5-10.1) mg/dl Ionized Calcium (1.12-1.32) mmol/L Phosphorus (2.5-4.9) mg/dl Magnesium (1.7-2.4) mg/dl Total Bilirubin (0.2-1.0) mg/dl AST (13-39) U/L ALT (7-52) U/L Alkaline Phosphatase (34-104) U/L Total Creatine Kinase (26-192) U/L Troponin I High Sens (0-14) pg/ml Total Protein (6.0-8.3) gm/dl Albumin (3.4-5.0) gm/dl Globulin (2.5-4.0) gm/dl Albumin/Globulin Ratio (0.9-2) Procalcitonin (0-0.5) ng/ml Random Cortisol mcg/dl Random Vancomycin (10-20) mcg/ml Staphylococcus sp PCR (NotDetected) mecA/C-Methicil Resis Gene (NotDetected) Staph epidermidis (PCR) (NotDetected) Bld Cult ID Panel PCR (NotDetected) 12/02/22 12/02/22 12/02/22 Range/Units 17:27 17:27 14:22 WBC (4.8-10.8) K/ul RBC (3.93-5.22) M/uL Hgb (12.0-16.0) g/dl POC Hgb (12.0-16.0) g/dl Hct (34.1-44.9) % POC Hct (37-47) % MCV (80.0-100.0) fL MCH (25.0-34.0) pg MCHC (32.0-36.0) g/dL RDW Std Deviation (36.4-46.3) fL RDW Coeff of Cheri (11.5-14.5) % Plt Count (130-400) K/uL MPV (9.4-12.3) fL Immature Gran % (Auto) % Neut % (Auto) % Lymph % (Auto) % [place] % (Auto) % Eos % (Auto) % Baso % (Auto) % Neut # (Auto) (1.4-6.5) K/uL Lymph # (Auto) (1.2-3.4) K/uL [place] # (Auto) (0.24-0.82) K/uL Eos # (Auto) (0-0.50) K/uL Baso # (Auto) (0-0.2) K/uL Immature Gran # (Auto) (0.00-0.02) K/uL Absolute Nucleated RBC (0-0) K/uL Nucleated RBC % (auto) % Polychromasia APTT (21.0-31.0) Seconds PTT Ratio Sample Site POC pH (7.35-7.45) POC pCO2 (35-46) mmHg POC pO2 (80-95) mmHg POC HCO3 (19-24) martinez/L POC Total CO2 (24-31) mmol/L POC Base Excess (-9-1.8) martinez/L ABG pH (7.35-7.45) ABG pH (Temp Correct) (7.35-7.45) ABG pCO2 (35-46) mmHg ABG pCO2 (Temp Corrct (35-46) mmHg ABG pO2 (80-95) mmHg POC ABG pO2 at Pt Temp ABG HCO3 (19-24) mmol/L POC ABG O2 Sat (90-95) % ABG O2 Saturation (90-95) % ABG Base Excess (-9-1.8) mEq/L Rafal Test Oxygen Given O2 Delivery Device POC O2 Rate POC FiO2 % Tidal Volume PEEP POC Sodium (135-144) mmol/L Sodium (136-145) mmol/L POC Potassium (3.3-5.0) mmol/L Potassium (3.5-5.1) mmol/L Chloride (98-107) mmol/L Carbon Dioxide (21-32) mmol/L Anion Gap (3-11) BUN (6-23) mg/dl Creatinine (0.6-1.2) mg/dl Est Cr Clr Drug Dosing ml/min Est GFR ( Amer) ml/min Est GFR (Non-Af Amer) ml/min BUN/Creatinine Ratio (10-20) Glucose (70-99(Fasting)) mg/dl POC Glucose (70-99) mg/dl POC Glucose (other) (70-99) mg/dl Lactate (0.4-2.0) mmol/L Calcium (8.5-10.1) mg/dl Ionized Calcium (1.12-1.32) mmol/L Phosphorus (2.5-4.9) mg/dl Magnesium 1.9 2.0 (1.7-2.4) mg/dl Total Bilirubin (0.2-1.0) mg/dl AST (13-39) U/L ALT (7-52) U/L Alkaline Phosphatase (34-104) U/L Total Creatine Kinase (26-192) U/L Troponin I High Sens 3389.1 H* (0-14) pg/ml Total Protein (6.0-8.3) gm/dl Albumin (3.4-5.0) gm/dl Globulin (2.5-4.0) gm/dl Albumin/Globulin Ratio (0.9-2) Procalcitonin (0-0.5) ng/ml Random Cortisol mcg/dl Random Vancomycin (10-20) mcg/ml Staphylococcus sp PCR (NotDetected) mecA/C-Methicil Resis Gene (NotDetected) Staph epidermidis (PCR) (NotDetected) Bld Cult ID Panel PCR (NotDetected) 12/02/22 12/02/22 12/02/22 Range/Units 14:22 12:09 09:43 WBC (4.8-10.8) K/ul RBC (3.93-5.22) M/uL Hgb (12.0-16.0) g/dl POC Hgb (12.0-16.0) g/dl Hct (34.1-44.9) % POC Hct (37-47) % MCV (80.0-100.0) fL MCH (25.0-34.0) pg MCHC (32.0-36.0) g/dL RDW Std Deviation (36.4-46.3) fL RDW Coeff of Cheri (11.5-14.5) % Plt Count (130-400) K/uL MPV (9.4-12.3) fL Immature Gran % (Auto) % Neut % (Auto) % Lymph % (Auto) % [place] % (Auto) % Eos % (Auto) % Baso % (Auto) % Neut # (Auto) (1.4-6.5) K/uL Lymph # (Auto) (1.2-3.4) K/uL [place] # (Auto) (0.24-0.82) K/uL Eos # (Auto) (0-0.50) K/uL Baso # (Auto) (0-0.2) K/uL Immature Gran # (Auto) (0.00-0.02) K/uL Absolute Nucleated RBC (0-0) K/uL Nucleated RBC % (auto) % Polychromasia APTT (21.0-31.0) Seconds PTT Ratio Sample Site POC pH (7.35-7.45) POC pCO2 (35-46) mmHg POC pO2 (80-95) mmHg POC HCO3 (19-24) martinez/L POC Total CO2 (24-31) mmol/L POC Base Excess (-9-1.8) martinez/L ABG pH (7.35-7.45) ABG pH (Temp Correct) (7.35-7.45) ABG pCO2 (35-46) mmHg ABG pCO2 (Temp Corrct (35-46) mmHg ABG pO2 (80-95) mmHg POC ABG pO2 at Pt Temp ABG HCO3 (19-24) mmol/L POC ABG O2 Sat (90-95) % ABG O2 Saturation (90-95) % ABG Base Excess (-9-1.8) mEq/L Rafal Test Oxygen Given O2 Delivery Device POC O2 Rate POC FiO2 % Tidal Volume PEEP POC Sodium (135-144) mmol/L Sodium (136-145) mmol/L POC Potassium (3.3-5.0) mmol/L Potassium (3.5-5.1) mmol/L Chloride (98-107) mmol/L Carbon Dioxide (21-32) mmol/L Anion Gap (3-11) BUN (6-23) mg/dl Creatinine (0.6-1.2) mg/dl Est Cr Clr Drug Dosing ml/min Est GFR ( Amer) ml/min Est GFR (Non-Af Amer) ml/min BUN/Creatinine Ratio (10-20) Glucose (70-99(Fasting)) mg/dl POC Glucose (70-99) mg/dl POC Glucose (other) 134 H (70-99) mg/dl Lactate (0.4-2.0) mmol/L Calcium (8.5-10.1) mg/dl Ionized Calcium (1.12-1.32) mmol/L Phosphorus (2.5-4.9) mg/dl Magnesium (1.7-2.4) mg/dl Total Bilirubin (0.2-1.0) mg/dl AST (13-39) U/L ALT (7-52) U/L Alkaline Phosphatase (34-104) U/L Total Creatine Kinase (26-192) U/L Troponin I High Sens 3195.8 H* D (0-14) pg/ml Total Protein (6.0-8.3) gm/dl Albumin (3.4-5.0) gm/dl Globulin (2.5-4.0) gm/dl Albumin/Globulin Ratio (0.9-2) Procalcitonin (0-0.5) ng/ml Random Cortisol 19.15 mcg/dl Random Vancomycin (10-20) mcg/ml Staphylococcus sp PCR (NotDetected) mecA/C-Methicil Resis Gene (NotDetected) Staph epidermidis (PCR) (NotDetected) Bld Cult ID Panel PCR (NotDetected) 12/01/22 Range/Units 22:21 WBC (4.8-10.8) K/ul RBC (3.93-5.22) M/uL Hgb (12.0-16.0) g/dl POC Hgb (12.0-16.0) g/dl Hct (34.1-44.9) % POC Hct (37-47) % MCV (80.0-100.0) fL MCH (25.0-34.0) pg MCHC (32.0-36.0) g/dL RDW Std Deviation (36.4-46.3) fL RDW Coeff of Cheri (11.5-14.5) % Plt Count (130-400) K/uL MPV (9.4-12.3) fL Immature Gran % (Auto) % Neut % (Auto) % Lymph % (Auto) % [place] % (Auto) % Eos % (Auto) % Baso % (Auto) % Neut # (Auto) (1.4-6.5) K/uL Lymph # (Auto) (1.2-3.4) K/uL [place] # (Auto) (0.24-0.82) K/uL Eos # (Auto) (0-0.50) K/uL Baso # (Auto) (0-0.2) K/uL Immature Gran # (Auto) (0.00-0.02) K/uL Absolute Nucleated RBC (0-0) K/uL Nucleated RBC % (auto) % Polychromasia APTT (21.0-31.0) Seconds PTT Ratio Sample Site POC pH (7.35-7.45) POC pCO2 (35-46) mmHg POC pO2 (80-95) mmHg POC HCO3 (19-24) martinez/L POC Total CO2 (24-31) mmol/L POC Base Excess (-9-1.8) martinze/L ABG pH (7.35-7.45) ABG pH (Temp Correct) (7.35-7.45) ABG pCO2 (35-46) mmHg ABG pCO2 (Temp Corrct (35-46) mmHg ABG pO2 (80-95) mmHg POC ABG pO2 at Pt Temp ABG HCO3 (19-24) mmol/L POC ABG O2 Sat (90-95) % ABG O2 Saturation (90-95) % ABG Base Excess (-9-1.8) mEq/L Rafal Test Oxygen Given O2 Delivery Device POC O2 Rate POC FiO2 % Tidal Volume PEEP POC Sodium (135-144) mmol/L Sodium (136-145) mmol/L POC Potassium (3.3-5.0) mmol/L Potassium (3.5-5.1) mmol/L Chloride (98-107) mmol/L Carbon Dioxide (21-32) mmol/L Anion Gap (3-11) BUN (6-23) mg/dl Creatinine (0.6-1.2) mg/dl Est Cr Clr Drug Dosing ml/min Est GFR ( Amer) ml/min Est GFR (Non-Af Amer) ml/min BUN/Creatinine Ratio (10-20) Glucose (70-99(Fasting)) mg/dl POC Glucose (70-99) mg/dl POC Glucose (other) (70-99) mg/dl Lactate (0.4-2.0) mmol/L Calcium (8.5-10.1) mg/dl Ionized Calcium (1.12-1.32) mmol/L Phosphorus (2.5-4.9) mg/dl Magnesium (1.7-2.4) mg/dl Total Bilirubin (0.2-1.0) mg/dl AST (13-39) U/L ALT (7-52) U/L Alkaline Phosphatase (34-104) U/L Total Creatine Kinase (26-192) U/L Troponin I High Sens (0-14) pg/ml Total Protein (6.0-8.3) gm/dl Albumin (3.4-5.0) gm/dl Globulin (2.5-4.0) gm/dl Albumin/Globulin Ratio (0.9-2) Procalcitonin (0-0.5) ng/ml Random Cortisol mcg/dl Random Vancomycin (10-20) mcg/ml Staphylococcus sp PCR DETECTED A (NotDetected) mecA/C-Methicil Resis Gene DETECTED A (NotDetected) Staph epidermidis (PCR) DETECTED A (NotDetected) Bld Cult ID Panel PCR See PCR Comment (NotDetected) PG Care Time/CCT Total # of Minutes Spent Total Time Spent with Patient: Total time spent is greater than 50% in coordination of care (as documented) at patient's floor/unit and/or counseling patient: Coding Level of Care Code 12965 SUB INP/OBS CARE 3/50MIN Diagnoses Septic shock A41.9; R65.21 Acute renal failure N17.9 Acute renal failure type: unspecified Left ventricular apical thrombus I51.3 Acute metabolic encephalopathy G93.41 Acute respiratory failure with hypoxia J96.01 Rhabdomyolysis M62.82 Rhabdomyolysis type: non-traumatic Hypocalcemia E83.51 Right lower lobe pneumonia J18.9 Pneumonia type: due to unspecified organism Elevated troponin R77.8 History of bilateral breast cancer Z85.3 Regular alcohol consumption Z78.9 Cardiomyopathy I42.9 Type II diabetes mellitus E11.9 Macrocytic anemia D53.9 Shock liver K72.00 Hypomagnesemia E83.42 Prolonged QT interval R94.31 (1) Acute renal failure Acute renal failure type: unspecified Qualified Code(s): N17.9 - Acute kidney failure, unspecified (2) Rhabdomyolysis Rhabdomyolysis type: non-traumatic Qualified Code(s): M62.82 - Rhabdomyolysis (3) Right lower lobe pneumonia Pneumonia type: due to unspecified organism Qualified Code(s): J18.9 - Pneumonia, unspecified organism
--- NOTE | 2022-12-03 10:35 | Infectious Disease Consult ---
Date of Consultation December 03, 2022 Assessment & Plan (1) Septic shock: (2) Bacteremia: (3) Left ventricular apical thrombus: (4) Right lower lobe pneumonia: (5) Acute respiratory failure with hypoxia: (6) Acute renal failure: (7) Lactic acidosis: (8) Acute metabolic encephalopathy: (9) Shock liver: (10) Multi-organ system dysfunction: Plan 72 yo F with a history of metastatic breast cancer (dx 2002, metastatic to sacrum, spine, iliac on anastrozole/Ibrance), T2DM, CKD, HTN, HLD, regular alcohol consumption, depression, anxiety, pathologic fracture of pelvis and lumbosacral spine, who presented to the ED on 12/01 encephalopathic, after being found down asleep on the floor, and was initially admitted to the ICU with hypoxic respiratory failure requiring intubation, hypotension requiring pressors, pneumonia, and ARNALDO on CKD. On presentation, she was noted to have Cr 4.21, lactate 3.4, AST 612, ALT 206, alk phos 123, CK 881, procalcitonin 4.29. COVID-19, influenza, and RSV were negative. CTA chest was negative for PE, but showed a small R pleural effusion with moderate RLL airspace opacity likely reflecting pneumonia, but pulmonary infarct could have this imaging appearance however no PE identified. She was started on cefepime for pneumonia. A TTE showed EF 25-30%, a 2 x 2 cm pedunculated mass attached by a narrow stalk to the LV apex, thrombus most likely but vegetation a possibility. Admission BCx are now positive for Staph species in 4/4 bottles, with BCID PCR panel positive for Staph epi and mecA/C resistance gene, for which vancomycin was added. A sputum culture is also growing Staph species. Pt has been off pressors since 12/02 A true Staph epi bacteremia would be unusual in the absence of hardware, prosthetic devices, or long-term catheters. This raises the question of a contaminant, although it is interesting that the BCx is positive in 4/4 bottles. Will continue vancomycin for now and await 12/03 repeat BCx. If she has persistent bacteremia, this would raise concern for a nidus of infection--given the TTE finding, possibly endocarditis vs seeding of an LV apex thrombus. Micro: 12/03 BCx x2: pending 1/9 Sputum cx: Staph species. GS--no organisms 12/02 MRSA nares: negative 12/01 BCID PCR panel: Staph epi detected, mecA/C resistance gene detected 12/01 BCx x2: Staph species in 4/4 bottles 12/01 SARS-CoV-2, influenza, RSV: negative Antimicrobial course: Vanc 12/02 - present Cefepime 12/02 - present Problems: #Pneumonia: sputum cx with Staph species #LV apical thrombus vs vegetation #Blood cultures with methicillin resistant Staph epi: true bacteremia vs contaminant #Hypoxic respiratory failure: intubated #ARNALDO on CKD: uptrending #Transaminitis: uptrending #Metastatic breast cancer: on anastrozole, Ibrance #QTc prolongation Recommendations: -Continue vancomycin (goal trough 15-20) and cefepime for now -Follow-up repeat BCx from today 12/03 -Follow-up 12/01 BCx for identification and susceptibilities -Follow-up sputum culture -Ordered acute hepatitis panel, urine Legionella Ag Consultation Information Consultation was provided via telemedicine using two-way real-time interactive telecommunication between the patient and the telemedicine provider. For the duration of the visit, the provider was performing the assessment from a different facility than the patient. This includesuse of bluetooth stethoscope forauscultationperformed by the telepresenter that the telemedicine provider can hear if described in the physical exam. Data Migration Lead contact information: Please call [facility] [phone]. (Phone Number For Physician Use Only) After establishing a telemedicine visit, patient was: Patient was verified with two unique identifiers, Patient/authorized rep acknowledged consent and understanding and Gave permission to continue telehealth session Time Spent with Patient: Initial => 40 min History of Present Illness Reason for Consultation: Staph bacteremia, ?endocarditis, pneumonia Requesting Physician: Dr. Moo Freeman Attending Physician: Fabi Leach MD History of Present Illness 72 yo F with a history of metastatic breast cancer (diagnosed 2002, metastatic to sacrum, spinal cord, iliac), T2DM, CKD, HTN, HLD, regular alcohol consumption, depression, anxiety, pathologic fracture of pelvis and lumbosacral spine, who presented to the ED on 12/01 after being found down at her sister's house, sleeping on the floor. Per family, the pt had been ill for the last few days, but had worsened throughout the day of admission. She was lethargic, with decreased PO intake. Upon arrival, she was encephalopathic, blue and mottled appearing, with decreased respirations, hypoxic requiring intubation, and hypotensive requiring pressors. Labs demonstrated WBC 7.93, K 6, Cr 4.21, lactate 3.4, AST 612, ALT 206, alk phos 123, CK 881, procalcitonin 4.29, UA with 1-5 WBCs, COVID-19/flu/RSV negative. CXR showed cardiomegaly without evidence of pneumonia, CT head and C-spine showed bilateral mastoid effusion compatible with mastoiditis. CTA chest was negative for PE (suboptimally assessed due to respiratory motion), small R pleural effusion with moderate RLL airspace opacity likely reflecting pneumonia, but pulmonary infarct could have this imaging appearance however no PE identified, mild pulmonary edema. She was started on cefepime for pneumonia, and admitted to the ICU. A TTE was performed and showed EF 25-30%, a 2 x 2 cm pedunculated mass attached by a narrow stalk to the LV apex, thrombus most likely but vegetation a possibility. Her admission BCx became positive for GPCs in clusters, so she was started on vancomycin on 12/02 PM. BCID PCR panel is positive for Staph epi and mecA/C resistance gene. MRSA nares negative. Random vanc level 17.7 this AM. Per her son at bedside, the pt does not have known hardware or retirement catheters prior to admission. She typically lives with her son, but was staying with her sister the past week. No recent travel, no known sick contacts. Has pet cats. Allergies Allergy/AdvReac Type Severity Reaction Status Date / Time fentanyl AdvReac Severe Hallucinati Verified 08/26/22 08:14 on Home Medications Medication Instructions Recorded Confirmed Type cholecalciferol (vitamin D3) 50 50 mcg PO QAM 01/06/22 12/01/22 History mcg (2,000 unit) capsule acetaminophen 325 mg tablet 650 mg PO Q6H PRN pain, mild 02/08/22 12/01/22 History anastrozole 1 mg tablet 1 mg PO QAM 02/08/22 12/01/22 History multivitamin with minerals 1 cap PO QAM 02/08/22 12/01/22 History losartan 100 mg tablet 100 mg PO QAM #90 tabs 05/30/22 12/01/22 Rx metoprolol succinate 100 mg 100 mg PO QAM #90 tabs 07/23/22 12/01/22 Rx tablet,extended release 24 hr omeprazole 20 mg capsule,delayed 20 mg PO QAM #90 caps 07/23/22 12/01/22 Rx release Ibrance 1 dose PO UD 08/12/22 08/26/22 History calcium carbonate 600 mg-vitamin 1 tab PO QAM 08/12/22 12/01/22 History D3 10 mcg (400 unit) tablet (Calcium 600 + D(3)) gabapentin 600 mg tablet 600 mg PO QAM 08/12/22 12/01/22 History hydromorphone 8 mg tablet 4 mg PO Q4 PRN Pain, Severe 08/12/22 12/01/22 History magnesium 250 mg tablet 250 mg PO DAILY 08/12/22 12/01/22 History venlafaxine 150 mg 150 mg PO QAM #90 caps 09/04/22 12/01/22 Rx capsule,extended release 24 hr rosuvastatin 5 mg tablet 5 mg PO DAILY #90 tabs 10/03/22 12/01/22 Rx clonazepam 1 mg tablet 1 mg PO TID #90 tabs 10/22/22 12/01/22 Rx venlafaxine 75 mg capsule,extended 75 mg PO QAM 12/01/22 12/01/22 History release 24 hr Patient History Medical History Acute alteration in mental status Bilateral breast cancer [id number]--sx/chemo/radiation Breast cancer metastasized to bone 2021 Cancer related pain Case discussed with Dr. Miller/[facility], who has been managing patient's complex cancer pain with Methadone 5mg TID + prn Dilaudid oral. it is noted that pt has h/o ETOH abuse and ?opioid misuse. Her son reportedly struggles with substance abuse and there have been several early requests for opioids, raising the concern someone else is taking her meds. 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/no knife sharpener Osteoarthritis Pain of right lower extremity Palliative care encounter Type II diabetes mellitus Vitamin D deficiency Surgical History H/O tubal ligation History of appendectomy History of section History of colonoscopy History of esophagogastroduodenoscopy (EGD) History of left breast biopsy malignant History of lumpectomy of both breasts x2 History of right breast biopsy malignant History of tooth extraction History of wisdom tooth extraction Hx laparoscopic cholecystectomy (08/13/22) Laparoscopic Cholecystectomy - Alexandro Alvarez, DO, FACS Status post correction of deviated nasal septum Family History Grandmother (Maternal) AAA (abdominal aortic aneurysm) Family history of diabetes mellitus Mother No problems noted. 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 Physical Exam Physical Exam: GENERAL: Critically ill appearing female, on vent, sedated, diffusely edematous HEENT: ETT in place. ABDOMEN: distended, soft EXTREMITIES: edema of extremities SKIN: Excoriation on L hand. No rashes or wounds NEURO: Sedated. PSYCH: Unable to assess Lines: PIV, A-line, L femoral CVC, NGT, ETT Results & Data ([facility]) Vital Signs (Past 12 Hours) Vital Signs Temp Pulse Resp BP Pulse Ox Pulse Ox O2 Del Method 12/03/22 07:31 55 L 18 91 12/03/22 06:00 36.5 C 56 L 18 101/69 94 Mechanical Vent 12/03/22 05:00 36.5 C 55 L 18 99/69 L 93 12/03/22 04:00 36.5 C 54 L 18 99/66 L 94 12/03/22 04:00 56 L 117/67 12/03/22 04:00 12/03/22 02:03 94 12/03/22 03:31 36.6 C 56 L 18 107/57 L 94 Mechanical Vent 12/03/22 03:00 36.6 C 54 L 18 100/72 93 Mechanical Vent 12/03/22 02:30 36.6 C 54 L 18 107/65 93 Mechanical Vent 12/03/22 02:00 36.6 C 54 L 18 93 12/03/22 02:00 98/64 L Mechanical Vent 12/03/22 01:30 101/62 Mechanical Vent 12/03/22 01:30 36.7 C 54 L 18 94 Mechanical Vent 12/03/22 01:00 36.8 C 54 L 18 93 Mechanical Vent 12/03/22 01:00 100/61 Mechanical Vent 12/03/22 03:15 54 L 18 93 12/03/22 00:30 96/63 L 12/03/22 00:30 36.9 C 55 L 18 93 12/03/22 00:00 36.9 C 56 L 22 90 Mechanical Vent 12/03/22 00:00 101/63 12/02/22 23:30 105/66 12/02/22 23:30 37.0 C 58 L 22 90 Mechanical Vent 12/02/22 23:00 37.1 C 59 L 22 92 Mechanical Vent 12/02/22 23:00 109/70 12/02/22 22:30 117/76 12/02/22 22:30 37.1 C 59 L 22 91 Mechanical Vent 12/03/22 00:00 12/03/22 00:00 58 L 111/60 12/03/22 00:00 58 L 12/02/22 23:20 64 22 91 12/03/22 00:04 18 O2 Del Method FiO2 12/03/22 07:31 45 12/03/22 06:00 45 12/03/22 05:00 45 12/03/22 04:00 45 12/03/22 04:00 12/03/22 04:00 45 12/03/22 02:03 Mechanical Vent 12/03/22 03:31 50 12/03/22 03:00 50 12/03/22 02:30 50 12/03/22 02:00 12/03/22 02:00 60 12/03/22 01:30 60 12/03/22 01:30 60 12/03/22 01:00 60 12/03/22 01:00 60 12/03/22 03:15 50 12/03/22 00:30 12/03/22 00:30 12/03/22 00:00 60 12/03/22 00:00 60 12/02/22 23:30 55 12/02/22 23:30 55 12/02/22 23:00 45 12/02/22 23:00 45 12/02/22 22:30 45 12/02/22 22:30 35 12/03/22 00:00 60 12/03/22 00:00 12/03/22 00:00 12/02/22 23:20 45 12/03/22 00:04 Laboratory Results Short CBC 12/03/22 Range/Units 04:58 WBC 5.68 (4.8-10.8) K/ul Hgb 9.2 L (12.0-16.0) g/dl Hct 25.2 L (34.1-44.9) % Plt Count 144 (130-400) K/uL BMP 12/02/22 12/03/22 19:54 04:58 Sodium 138 136 Potassium 3.5 D 3.2 L Chloride 100 96 L Carbon Dioxide 23 26 BUN 58 H 59 H Creatinine 4.56 H* D 4.57 H* Glucose 128 H 142 H Calcium 6.2 L 6.3 L Cardiac Enzymes 12/03/22 Range/Units 04:58 Total Creatine Kinase 838 H (26-192) U/L Liver Function 12/03/22 Range/Units 04:58 Total Bilirubin 0.7 D (0.2-1.0) mg/dl AST 2287 H (13-39) U/L ALT 984 H (7-52) U/L Alkaline Phosphatase 123 H (34-104) U/L Albumin 2.8 L (3.4-5.0) gm/dl Diagnostic Findings Cervical Spine CT 12/01/22 22:01 CT OF THE CERVICAL SPINE WITHOUT CONTRAST CLINICAL HISTORY: Altered mental status. COMPARISON STUDY: PET/CT August 07, 2022. TECHNIQUE: Helical axial images of the cervical spine were obtained without IV contrast. Sagittal and coronal reconstructions were viewed. Automated exposure control was utilized for the study. A dose lowering technique was utilized adhering to the principles of ALARA. FINDINGS: The bilateral mastoid air cells are largely opacified. Endotracheal tube is partially imaged. Bilateral pleural effusions and interlobular septal thickening with groundglass opacities are better depicted on the chest CT which will be reported separately. There is reversal of the cervical lordosis. No acute cervical spine fracture is present. A small amount of prevertebral edema is noted. This is nonspecific. Moderate multilevel degenerative changes within the cervical spine are present. IMPRESSION: 1. No acute cervical spine fracture or subluxation. 2. Small amount of prevertebral edema, a nonspecific finding. 3. Moderate multilevel degenerative changes within the cervical spine. 4. Bilateral mastoid effusions. ACT 112: Negative or not required by law. Electronically signed by: Hakeem Rico M.D. 12/02/2022 7:56 AM Chest X-Ray 12/01/22 22:01 XR chest 1V portable CLINICAL HISTORY: Sepsis TECHNIQUE: Single frontal radiograph of the chest was obtained. Comparison: Comparison is made to chest radiograph 08/12/2022 and CTA chest 08/12/2022 FINDINGS: Enteric tube terminates 4.5 cm from the raghu. Cardiomegaly is noted. The lungs are clear. No evidence of pleural effusion or pneumothorax. IMPRESSION: Cardiomegaly without evidence of pneumonia. ACT 112: Negative or not required by law. Electronically signed by: Joseph Longoria M.D. 12/02/2022 8:[address] 12/01/22 22:01 CT head/brain wo con CLINICAL HISTORY: ams Technique: Contiguous axial CT images of the head were acquired from the base of the skull to the vertex without intravenous contrast administration. Images were viewed in brain, subdural and bone windows. Automated dose lowering techniques and/or adjustment according to patient size were utilized for this exam. Comparison: Comparison is made to CT head 02/11/2022 Findings: The ventricles, basal cisterns, and cerebral sulci are normal. There is no acute intracranial hemorrhage or evidence of acute territorial infarction. Neither mass effect, shift of the midline structures, nor abnormal extra-axial fluid collections are shown. There is opacification of the bilateral mastoid air cells, new from prior exam. The orbits appear normal. There are no acute fractures of the calvaria or scalp swelling. Impression: 1. No acute intracranial hemorrhage, no evidence of acute territorial infarction or other acute intracranial disease process. 2. New bilateral mastoid effusion compatible with mastoiditis. ACT 112: Negative or not required by law. Electronically signed by: Joseph Longoria M.D. 12/02/2022 8:29 AM Chest CTA 12/01/22 22:48 CT ANGIOGRAPHY OF THE CHEST, PULMONARY EMBOLUS PROTOCOL CLINICAL HISTORY: Shortness of breath. Altered mental status. Evaluate for pulmonary embolus. COMPARISON STUDY: Chest CT August 12, 2022 and chest radiograph December 01, 2022. TECHNIQUE: Following IV administration of 113 mL of Optiray, helical axial images of the chest were obtained utilizing the pulmonary embolus protocol. Maximal intensity projections and sagittal and coronal reformats were viewed on an independent 3D workstation. IV contrast was administered without complication. Automated exposure control was utilized for the study. A dose lowering technique was utilized adhering to the principles of ALARA. CT DOSE: 1656.15 mGy.cm FINDINGS: No pulmonary emboli are identified although the segmental and subseg mental pulmonary arteries are suboptimally assessed on this exam. There is moderate cardiomegaly. Preferential dilatation of the right heart chambers is noted with straightening of the interventricular septum. IVC and hepatic veins are distended. There is reflux of contrast. There is no pericardial effusion. No pneumothorax is present. There is a small right pleural effusion. Moderate right lower lobe airspace opacity is noted. There are additional biapical opacities. Interlobular septal thickening is present. Central airways are patent. Trace perihepatic ascites is noted. There is moderate upper abdominal stranding. This could be due to volume overload. IMPRESSION: 1. No pulmonary emboli identified although segmental and subsegmental pulmonary arteries suboptimally assessed due to respiratory motion. 2. Cardiomegaly with preferential dilatation of the right heart chambers, straightening of the interventricular septum and reflux of contrast into the IVC and hepatic veins which are distended. The findings suggest right heart dysfunction/elevated right heart pressures. 3. Small right pleural effusion with moderate right lower lobe airspace opacity. This likely reflects pneumonia. A pulmonary infarct could have this imaging appearance however no pulmonary emboli are identified. If persistent clinical suspicion for pulmonary emboli, lower extremity venous ultrasound could be obtained. 4. Mild pulmonary edema. ACT 112: Negative or not required by law. Electronically signed by: Hakeem Rico M.D. 12/02/2022 8:24 AM Chest X-Ray 12/02/22 05:15 XR chest 1V portable CLINICAL HISTORY: OG tube placement TECHNIQUE: Single frontal radiograph of the chest was obtained. Comparison: Comparison is made to chest radiograph 12/01/2022 FINDINGS: Enteric tube side-port and tip lies below the diaphragm. Endotracheal tube is stable. Cardiomegaly is noted. The lungs are clear. No evidence of pleural effusion or pneumothorax. IMPRESSION: Satisfactory appearance of enteric and endotracheal tubes. Cardiomegaly is noted. ACT 112: Negative or not required by law. Electronically signed by: Joseph Longoria M.D. 12/02/2022 12:58 PM Chest X-Ray 12/03/22 05:30 XR chest 1V portable CLINICAL HISTORY: while intubated- evaluate lines and lung john COMPARISON STUDY: Chest CT November 2022 and chest radiograph December 02, 2022. FINDINGS: Tip of endotracheal tube is 2.7 cm above the raghu. Tip of nasogastric tube is at least within the body of the stomach. There is no pneumothorax. Cardiomegaly is again noted. Bilateral pleural effusions and bibasilar opacities persist. The appearance of the chest is similar to prior exam. Pulmonary edema is again noted. IMPRESSION: 1. Satisfactory positioning of the endotracheal tube. 2. Persistent bilateral pleural effusions and bibasilar opacities which could reflect pneumonia or atelectasis. 3. Cardiomegaly with stable pulmonary edema. ACT 112: Negative or not required by law. Electronically signed by: Hakeem Rico M.D. 12/03/2022 8:52 AM 12/02 TTE 2 x 2 cm pedunculated mass seen attached by a narrow stalk to the L ventricular apex, thrombus most likely but vegetation a possibility. Medications Administered Current Inpatient Medications Albuterol (Albut/Ipratrop 3mg/0.5mg Neb 3 Ml Vial) 3 ml INH Q4H PRN PRN Reason: Dyspnea Stop: 01/01/23 02:02 Dextrose (Dextrose 50% 50 Ml Syringe) 25 - 50 ml IV UD PRN; Protocol PRN Reason: Hypoglycemia Protocol Stop: 01/01/23 02:37 Fludrocortisone Acetate (Fludrocortisone Acetate 0.1 Mg Tab) 0.1 mg PO QAM VI Stop: 01/01/23 17:14 Last Admin: 12/03/22 09:28 Dose: 0.1 mg Glucagon (Glucagon For Inj 1 Mg Vial) 1 mg SQ UD PRN; Protocol PRN Reason: Hypoglycemia Protocol Stop: 01/01/23 02:37 Glucose (Glucose 40% Gel 15 Gm Tube) 15 - 30 gm PO UD PRN; Protocol PRN Reason: Hypoglycemia Protocol Stop: 01/01/23 02:37 Glucose (Glucose 10 Tab/Tube) 4 - 8 tab PO UD PRN; Protocol PRN Reason: Hypoglycemia Treatment Stop: 01/01/23 02:37 Hydromorphone HCl (Hydromorphone Inj 1 Mg/Ml Syringe) 1 mg IV Q6H [facility] Stop: 12/16/22 10:44 Last Admin: 12/03/22 05:35 Dose: 1 mg Hydromorphone HCl (Hydromorphone Inj 1 Mg/Ml Syringe) 1 mg IV Q3H PRN PRN Reason: Pain Stop: 12/16/22 10:36 Pantoprazole Sodium 40 mg/ (Syringe) 10 mls @ 5 mls/min IV DAILY@1100 [facility] Stop: 01/01/23 10:59 Last Admin: 12/02/22 11:42 Dose: 5 mls/min Cefepime HCl 1,000 mg/ Syringe 10 mls @ 5 mls/min IV Q12H [facility]; Protocol Stop: 12/09/22 02:59 Last Admin: 12/02/22 23:50 Dose: 5 mls/min Heparin Sodium/Dextrose (Heparin Sodium/Dextrose) 25,000 units in 500 mls @ 23 mls/hr IV .[id number] [facility]; Protocol Stop: 01/01/23 09:29 Last Admin: 12/03/22 08:16 Dose: 1,150 units/hr, 23 mls/hr Thiamine HCl 200 mg/ Sodium (Chloride) 52 mls @ 210 mls/hr IV DAILY [facility] Stop: 01/04/23 08:59 Thiamine HCl 500 mg/ Sodium (Chloride) 55 mls @ 210 mls/hr IV TID [facility] Stop: 12/04/22 09:16 Last Infusion: 12/03/22 08:43 Dose: Infused Folic Acid 1 mg/ Syringe 10 mls @ 5 mls/min IV DAILY [facility] Stop: 01/01/23 13:59 Last Admin: 12/03/22 08:21 Dose: 5 mls/min Phenylephrine HCl 20 mg/ (Dextrose) 502 mls @ 0 mls/hr IV .Q0M [facility]; Protocol Stop: 01/01/23 14:29 Last Admin: 12/03/22 07:14 Dose: Not Given Amiodarone HCl/Dextrose (Nexterone / D5w) 360 mg in 200 mls @ 16.667 mls/hr IV .Q12H [facility] Stop: 01/01/23 22:14 Last Infusion: 12/03/22 07:13 Dose: 0.5 mg/min, 16.7 mls/hr Hydrocortisone Sodium (Succinate 50 mg/ Syringe) 1 mls @ 4 mls/min IV Q6H [facility] Stop: 01/01/23 17:14 Last Admin: 12/03/22 08:21 Dose: 4 mls/min Magnesium Sulfate/Dextrose (Magnesium Sulfate / D5w) 1 gm in 100 mls @ 50 mls/hr IV ONE ONE Stop: 12/03/22 11:32 Last Admin: 12/03/22 09:59 Dose: 50 mls/hr Dexmedetomidine/Sodium Chloride (Precedex) 200 mcg in 50 mls @ 8.47 mls/hr IV .Q5H55M [facility]; Protocol Stop: 12/07/22 09:44 Metoprolol Tartrate (Metoprolol Tartrate 1 Mg/Ml Vial) 5 mg IV Q5M PRN PRN Reason: Tachycardia Stop: 01/01/23 14:16 Last Admin: 12/02/22 15:20 Dose: 5 mg Miscellaneous (Icu Protocol For Hyperglycemia) 1 each N/A ACHS [facility] Stop: 12/04/22 07:29 Last Admin: 12/03/22 08:18 Dose: Not Given Miscellaneous (Carbohydrates For Hypoglycemia ) 15 - 30 gm PO UD PRN PRN Reason: Hypoglycemia Protocol Stop: 01/01/23 02:37 Miscellaneous Information (Vancomycin Consult Active) 1 each N/A UD PRN PRN Reason: Consult Stop: 01/01/23 18:23 (1) Right lower lobe pneumonia Pneumonia type: due to unspecified organism Qualified Code(s): J18.9 - Pneumonia, unspecified organism (2) Acute renal failure Acute renal failure type: unspecified Qualified Code(s): N17.9 - Acute kidney failure, unspecified
[2022-12-03] MEDS: dexMEDEtomidine 200 MCG/50 ML BAG IV SCH ×3 (10:39→20:41)
[2022-12-03] MEDS: PANTOprazole 40 MG in SYRINGE 0 ML IV SCH (11:22)
[2022-12-03] MEDS: CEFEPIME 1,000 MG in SYRINGE 0 ML IV SCH ×2 (11:27→23:57)
--- NOTE | 2022-12-03 11:37 | XRay Report ---
XR chest 1V portable CLINICAL HISTORY: evaluate ETT and lung feilds- TECHNIQUE: Single frontal radiograph of the chest was obtained. Comparison: None available at the time of this dictation. FINDINGS: An endotracheal tube is at raghu. An enteric tube side-port is at the gastroesophageal junction. The cardiomediastinal silhouette is normal. Bilateral lower lung predominant airspace opacities are seen . There is a left pleural effusion. IMPRESSION: 1. Endotracheal tube is at the raghu and can be withdrawn approximately 3 cm for improved positioni ng. Enteric tube side-port is likely at the gastroesophageal junction and can be advanced approximate ly 3 cm for improved positioning. 2. Bilateral lower lung predominant airspace opacities which may represent atelectasis, pneumonia, a nd/or aspiration. 3. Left pleural effusion. ACT 112: Negative or not required by law. Electronically signed by: Joseph Longoria M.D. 12/03/2022 11:36 AM
--- NOTE | 2022-12-03 11:38 | Pharmacy Report ---
Pharmacy PK ABX Note - Date of Service December 03, 2022 - Assessment and Plan Assessment 72 year old F receiving vancomycin and cefepime empirically. Pertinent microbiologic data includes: negative MRSA Nasal Swab, / bcx culture growing staph species with BCID2 panel indicating MRSE. Sputum culture also growing staph species. Patient also found to have a ventricular thrombus with possible vegetation. ID consulted. Patient with ARF (scr 4.5), UOP low but somewhat improved today per RN. No plan for HD at this time. Given ARNALDO and changing renal function but active bacteremia, will plan on dosing vancomycin by levels. Level this morning after last evening's loading dose was therapeutic. Will plan to get another 12 hour random level to better assess clearance. Day # 2 of antimicrobial therapy. Plan Vancomycin * Loading dose: 1500 mg IV x 1 (administered ~1900 last evening) * Random level this morning (~0500) was 17.7. * Maintenance dose: redose as needed per level * Random level ordered for: 12/03/22 @1700 Pharmacy will continue to follow and will adjust dose/frequency as necessary. Thank you. Pharmacy has transitioned to AUC monitoring for vancomycin. AUC/JEANNIE is the preferred PK/PD target and is associated with decreased risk of nephrotoxicity compared to traditional trough targets.
[2022-12-03] MEDS: AMIODARONE / D5W 360 MG/200 ML BAG IV SCH (11:57)
--- NOTE | 2022-12-03 12:07 | Cardiology Progress Note ---
Date of Service December 03, 2022 Assessment & Plan (1) Left ventricular apical thrombus: Plan: Low flow state likely resulted in apical region stasis and coagulation with development of left ventricular apical thrombus. Given positive blood cultures, thrombus may have been seeded and could now be potentially viewed as vegetation. Management would not change, extended duration of antibiotic therapy will be necessary, no mechanical interventions feasible. Continue heparin, if she were eventually to change to oral therapy, classically warfarin was used for apical thrombi in the past and has the most data, but it seems reasonable to consider direct oral anticoagulant to simplify management if she improves to the point that she could tolerate oral therapy. This would need to be continued for 3 months. (2) Cardiomyopathy: Plan: Etiology of her cardiomyopathy remains uncertain, may be secondary to sepsis, stress cardiomyopathy, or acute myocardial ischemia (no evidence of ST elevation infarct), or combination of the above. Troponin appears to have peaked and ECG overnight was stable with no evidence of ongoing ischemia. She is currently on a heparin drip for her apical thrombus, this will serve to manage acute coronary syndrome as well. Could consider adding low-dose aspirin to her regimen. Would obtain another echocardiogram later this week to reassess LV function. (3) Atrial fibrillation with RVR: Plan: Transient atrial fibrillation yesterday, agree with amiodarone infusion since she no doubt would tolerate extended period of tachycardia poorly. Would consider reducing rate of amiodarone infusion to avoid excess bradycardia and to allow more physiologic heart rate response to her hemodynamic compromise. If she improves to the point she is taking oral medication, would simply initiate amiodarone at 200 mg daily (to balance need for antiarrhythmic with avoiding excess bradycardia in patient who has already received an IV amiodarone load). (4) Acute hypotension: (5) Metastatic cancer: Admission and Anticipated Discharge Date Admission Date: December 01, 2022 Subjective 4-hour episode of atrial fibrillation with rapid ventricular response yesterday, sinus rhythm since yesterday afternoon on amiodarone infusion. Pressors being weaned off. On heparin for apical thrombus. Blood cultures returned positive. Remains on the ventilator. Physical Exam Physical Exam: Lying quietly/on ventilator. BP 101/63 mmHg Pulse 53 bpm and regular. Skin: no ecchymoses or generalized lesions. HEENT: unremarkable. Neck: Jugular venous pulse difficult to assess due to anatomy, no obvious carotid bruits. Lungs: Mildly reduced breath sounds but clear bilaterally. . Cardiac: regular rhythm, normal S1 and S2, no obvious murmur. Abdomen: benign. Extremities: Trace pretibial edema, pulses intact. Neurologic: Apparently responds to some commands, grossly nonfocal. Results & Data ([facility]) Laboratory Results Potassium 3.2, normal sodium, BUN 59, creatinine 4.57 (BUN/creatinine 58/4.56 yesterday). High-sensitivity troponin peaked at 3389, today's value was 2518. Diagnostic Findings ECG today shows sinus bradycardia 55 bpm, old inferior infarct, poor R wave p rogression and diffuse nonspecific T wave abnormality. Compared with ECG from last evening, no significant change. PG Care Time/CCT Total # of Minutes Spent Total Time Spent with Patient: Total time spent is greater than 50% in coordination of care (as documented) at patient's floor/unit and/or counseling patient: Coding Level of Care Code 17150 SUB INP/OBS CARE 3/50MIN Diagnoses Left ventricular apical thrombus I51.3 Cardiomyopathy I42.9 Atrial fibrillation with RVR I48.91 Acute hypotension I95.9 Metastatic cancer C79.9
[2022-12-03] MEDS ORDERED: PEPTAMEN 1.5 CAL 1,000 ML BAG OG SCH (12:15)
[2022-12-03] MEDS ORDERED: ASPIRIN 300 MG SUPP PR SCH (13:30)
--- NOTE | 2022-12-03 13:42 | Palliative Care Progress Note ---
Date of Service December 03, 2022 Assessment & Plan (1) Palliative care encounter: (2) Cancer related pain: (3) Discussion about advance care planning held with family member: (4) Septic shock: (5) Multi-organ system dysfunction: (6) Prolonged QT interval: (7) Left ventricular apical thrombus: (8) Atrial fibrillation with RVR: (9) Acute respiratory failure with hypoxia: Plan met with son x 10 min, updates reviewed. Advised repeat BC have been sent, these can take a few days to result he notes "she's no better but at least she's no worse, I guess that's something, right?" ongoing psychosocial support provided will follow up tomorrow, hope to see if there is a trend established in her course by that time, son is hoping to get a better sense of her progosis and what would be her "most likely" outcome and state of being - can she survive this, if she does what will her life be like/will that be a manner of life she would be accepting of, etc. Beatriz Britt DNP Clinical Director, Palliative Medicine Admission and Anticipated Discharge Date Admission Date: December 01, 2022 Subjective UOP is picking up remains intubated continues amiodarone for rate control / afib son at [facility], asking about her culture results, referencing discussion with ID earlier on telemed- he is curious where pt could have picked up this infection. Review of Systems Review of Systems: Unobtainable due to endotracheal tube and Unobtainable due to reduced consciousness Physical Exam Physical Exam: pt without change in exam from prior met with son today Results & Data ([facility]) Vital Signs (Past 12 Hours) Vital Signs Temp Pulse Resp BP Pulse Ox Pulse Ox O2 Del Method 12/03/22 12:00 36.3 C L 53 L 13 93 12/03/22 12:00 101/63 12/03/22 11:00 36.0 C L 58 L 12 96 12/03/22 10:00 36.1 C L 57 L 14 95 12/03/22 10:00 114/74 12/03/22 09:00 36.5 C 59 L 17 95 Mechanical Vent 12/03/22 08:00 36.6 C 57 L 15 94 Mechanical Vent 12/03/22 08:00 111/74 12/03/22 07:00 36.6 C 56 L 18 92 Mechanical Vent 12/03/22 07:00 103/70 12/03/22 12:00 12/03/22 12:00 52 L 12/03/22 08:00 56 L 12/03/22 10:25 57 L 14 95 12/03/22 07:31 55 L 18 91 12/03/22 06:00 36.5 C 56 L 18 101/69 94 Mechanical Vent 12/03/22 05:00 36.5 C 55 L 18 99/69 L 93 12/03/22 04:00 36.5 C 54 L 18 99/66 L 94 12/03/22 04:00 56 L 117/67 12/03/22 04:00 12/03/22 02:03 94 12/03/22 03:31 36.6 C 56 L 18 107/57 L 94 Mechanical Vent 12/03/22 03:00 36.6 C 54 L 18 100/72 93 Mechanical Vent 12/03/22 02:30 36.6 C 54 L 18 107/65 93 Mechanical Vent 12/03/22 02:00 36.6 C 54 L 18 93 12/03/22 02:00 98/64 L Mechanical Vent 12/03/22 03:15 54 L 18 93 O2 Del Method FiO2 12/03/22 12:00 12/03/22 12:00 12/03/22 11:00 12/03/22 10:00 12/03/22 10:00 12/03/22 09:00 12/03/22 08:00 12/03/22 08:00 12/03/22 07:00 12/03/22 07:00 12/03/22 12:00 45 12/03/22 12:00 12/03/22 08:00 12/03/22 10:25 45 12/03/22 07:31 45 12/03/22 06:00 45 12/03/22 05:00 45 12/03/22 04:00 45 12/03/22 04:00 12/03/22 04:00 45 12/03/22 02:03 Mechanical Vent 12/03/22 03:31 50 12/03/22 03:00 50 12/03/22 02:30 50 12/03/22 02:00 12/03/22 02:00 60 12/03/22 03:15 50 PG Care Time/CCT Total # of Minutes Spent Total Time Spent: 25 Total Time Spent with Patient: Total time spent is greater than 50% in coordination of care (as documented) at patient's floor/unit and/or counseling patient: Coding [place] [address] SUB INP/OBS CARE 12/18MIN Patient Type Established History Problem Focused Medical Decision Making Straight Forward Diagnoses Palliative care encounter Z51.5 Cancer related pain G89.3 Discussion about advance care planning held with family member Z71.0 Septic shock A41.9; R65.21 Multi-organ system dysfunction Prolonged QT interval R94.31 Left ventricular apical thrombus I51.3 Atrial fibrillation with RVR I48.91 Acute respiratory failure with hypoxia J96.01
[2022-12-03] MEDS: TUBE FEEDING WATER FLUSH OG SCH ×3 (14:17→20:43)
[2022-12-03 14:46] LABS: BUN Creatinine Ratio 12.4 (10-20); Calcium 7.6 mg/dl (8.5-10.1); Creatinine Clr Calc Pharmacy 11.8 ml/min; Est GFR (African American) 10.5 ml/min; Est GFR (Non-African American) 9.1 ml/min; Potassium 3.4 mmol/L (3.5-5.1)
--- NOTE | 2022-12-03 16:13 | Billing Data ---
Date of Service December 03, 2022 Coding Level of Care Code Critical Care 1st - mins
--- NOTE | 2022-12-03 18:41 | Pharmacy Report ---
Pharmacy PK ABX Note - Date of Service December 03, 2022 - Assessment and Plan Assessment 72 year old F receiving vancomycin and cefepime empirically. Pertinent microbiologic data includes: negative MRSA Nasal Swab, 02/25 bcx culture growing staph species with BCID2 panel indicating MRSE. Sputum culture also growing staph species. Patient also found to have a ventricular thrombus with possible vegetation. ID consulted. Patient with ARF (scr 4.5), UOP low but somewhat improved today per RN. No plan for HD at this time. Given ARNALDO and changing renal function but active bacteremia, will plan on dosing vancomycin by levels. Day # 2 of antimicrobial therapy. Plan Vancomycin * Random level of 13.6 mcg/mL at 1701 today * Will re-dose with vanco 750 mg IV x 1 * Repeat random level 12/04/22 AM Pharmacy will continue to follow and will adjust dose/frequency as necessary. Thank you.
[2022-12-03] MEDS ORDERED: VANCOMYCIN HCL 750 MG in SODIUM CHLORIDE 0.9% 250 ML IV ONE (18:45)
[2022-12-04] MEDS: TUBE FEEDING WATER FLUSH OG SCH ×6 (00:04→20:07)
[2022-12-04] MEDS: dexMEDEtomidine 200 MCG/50 ML BAG IV SCH ×2 (02:22→12:39)
[2022-12-04] MEDS: AMIODARONE / D5W 360 MG/200 ML BAG IV SCH (05:17)
[2022-12-04] MEDS: HYDROCORTISONE SOD 50 MG in SYRINGE 0 ML IV SCH ×2 (05:18→20:07)
[2022-12-04] MEDS: HYDROmorphone INJ 1 MG/ML SYRINGE IV SCH ×3 (05:18→16:35)
[2022-12-04 05:20] LABS: Hematocrit (blood only) 25.1 % (34.1-44.9); Hemoglobin 8.9 g/dl (12.0-16.0); Mean Corpuscular Hgb Conc 35.5 g/dL (32.0-36.0); Mean Corpuscular Volume 107.3 fL (80.0-100.0); Mean Platelet Volume 11.7 fL (9.4-12.3); Nucleated RBC # (auto) 0.09 K/uL (0-0); Nucleated RBC % (auto) 1.3 %; Platelet Count 134 K/uL (130-400); RDW Coefficient of Variation 14.3 % (11.5-14.5); RDW Standard Deviation 54.7 fL (36.4-46.3); Red Blood Count 2.34 M/uL (3.93-5.22); White Blood Count 7.08 K/ul (4.8-10.8)
[2022-12-04 05:31] LABS: iSTAT Arterial Blood Gas HCO3 28 meg/L (19-24); iSTAT Arterial Blood Gas pCO2 39 mmHg (35-46); iSTAT Arterial Blood Gas pH 7.47 (7.35-7.45); iSTAT Arterial Blood Gas pO2 80 mmHg (80-95); iSTAT Carbon Dioxide 30 mmol/L (24-31); iSTAT FiO2 40 %; iSTAT Site Art Line
[2022-12-04 05:51] LABS: INR 1.1 (0.9-1.1); Partial Thromboplastin Ratio 2.2; Prothrombin Time 11.9 Seconds (9.0-12.0)
[2022-12-04 05:57] LABS: Albumin Globulin Ratio 1.1 (0.9-2); Albumin Level 2.9 gm/dl (3.4-5.0); Bilirubin Direct 0.2 mg/dl (0-0.2); Bilirubin,Total 0.5 mg/dl (0.2-1.0); Creatinine Clr Calc Pharmacy 11.5 ml/min; Est GFR (African American) 10.2 ml/min; Est GFR (Non-African American) 8.8 ml/min; Globulin 2.7 gm/dl (2.5-4.0); Magnesium 2.4 mg/dl (1.7-2.4); Phosphorus 5.6 mg/dl (2.5-4.9); Potassium 3.3 mmol/L (3.5-5.1); Total Protein 5.6 gm/dl (6.0-8.3)
[2022-12-04 06:15] LABS: Immature Granulocytes # (auto) 0.15 K/uL (0.00-0.02); Immature Granulocytes % (auto) 2.1 %; Lymphocytes # (auto) 0.24 K/uL (1.2-3.4); Lymphocytes % (auto) 3.4 %; Monocytes # (auto) 0.13 K/uL (0.24-0.82); Monocytes % (auto) 1.8 %; Neutrophils # (auto) 6.56 K/uL (1.4-6.5); Neutrophils % (auto) 92.7 %; RBC Morphology Unremarkable
[2022-12-04 06:31] LABS: Partial Thromboplastin Time 61.5 Seconds (21.0-31.0)
[2022-12-04] MEDS: HEPARIN SODIUM/DEXTROSE 25,000 UNITS/500 ML BAG IV SCH (06:36)
--- NOTE | 2022-12-04 07:55 | Critical Care Progress Note ---
Date of Service December 04, 2022 Assessment & Plan (1) Multi-organ system dysfunction: Plan: Reason Critically Ill: 72 yo F presents with encephalopathy, hypoxia, hypotension, shock.Immediately intubated on arrival, her hyperkalemia resolved. With acute renal failure secondary to undifferentiated shock. Neuro -Encephalopathy- Metabolic, Sedation for mechanical ventilation, ETOH misuse CAM ICU: unable to assess Sedation: Precedex d/c'd this morning in anticipation of extubation. Analgesia: Dilaudid dose decreased to promote wakefulness - CT head negative for acute process. CT cervical spine without acute fx/subluxation. - Acidosis improved on on bicarb drip. - No seizure activity reported - versed given on arrival to ICU secondary to patient clenched fists, rigidity to legs, and biting at ETT- consider EEG if encephalopathy does not clear - Regular alcohol use at home ~1 bottle per day of liquor- follow for withdrawal- cont. high dose thiamine and folate Cardiac -Septic Shock- requiring vasopressor support, elevated HScTNI, prolonged QT, ventricular ?thrombus/vegetation, afib Patient arrived with shock- multifactorial to include hypovolemia and sepsis - evidence of multi organ dysfunction- heart, shock liver, encephalopathy, pulmonary hypoxia - lactate now wnl. - LFTs improving - d/c'd (12/03/21) vasopressors - elevated HScTNI in the setting of ARF- without STEMI- likely demand- trend ECG - trops peaked - echo- reduced EF 25-30% with significant wall abnormalities. Presence of a ventricular thrombus or possible vegetation. - will repeat echo in the next few weeks for improvement - consider ALIDA to confirm vegetation, however, may not change course of treatment at this point - cardiology on board- cont. short term heparin gtt or consider DOAC if improved prognosis - Holding QT prolongation drugs, most recently 579 - random cortisol 19- stress dosing steroids- d/c Florinef. Cont. hydrocortisone 50mg q12h x2 days then q24 x2 days. - developed afib and started on low dose amiodarone drip. Currently in NSR. Will need to consider QT prolongation and hepatotoxicity on this medication. Can switch to 200mg orally when able to take po meds. Respiratory -Hypercarbic/hypoxic respiratory failure requiring intubation, emphysema, pneumonia - Plan to extubate this morning. - Hold on further steroid administration- continue with TAMI nebulizers while intubated - CTA chest- negative for PE - Opacity right - likely aspiration- cont. abx as below - Pulmonary toilet GI - - tube feeds on hold in anticipation of extubation - speech consulted RENAL/LYTES -ARF on CKD, Hyperkalemia, Hypocalcemia, Hypomagnesemia, Metabolic and Respiratory Acidosis, AGAP Acidosis - Likely pre-renal/ATN in setting of hypotension - Electrolytes replacement protocol - Hyperkalemia and hypomagnesemia resolved - Hypocalcemia, improving- give 2g calcium gluconate - AGAP and bicarb improved, now mildly alkalotic. Bicarb drip d/c'd. - Negative UA - CPK peaked at 850 - Lasix 80mg IV x1 since off vasopressor support. -1L past 24 hours. Appears to be producing urine, cont. to monitor. - nephro following- will consider trial of dialysis if necessary, monitor for now -martinez in place ENDO -DMII - ICU hyperglycemia protocol HEME -Metastatic breast cancer - consider restarting home cancer medications following extubation - home narcotics for her metastatic pain disease on hold for now- pain control with Dilaudid ID -Pneumonia, gram positive bacteremia - cont. cefepime and vanc - aspiration vs. bacterial pneumonia -procal improved -sputum cx growing staph species -MRSA nares neg - blood cx growing gram positive bacteremia (staph species) -methicillin resistant staph epi on PCR -surveillance blood cx (12/03) pending -there is concern for infective endocarditis given possible vegetation -ID following Overall prognosis unclear, however, patient is showing signs of hemodynamic stability. No longer on vasopressor support. Continues to produce urine. Plan for extubation today. Palliative on board. Will continue discussions regarding code status and goals of care. Family wishes to pursue aggressive treatment for now. LINES/IV ACCESS - -Martinez, PIVs -Will remove ETT, OGT, CVL right groin, A-line today. DVT PROPHYLAXIS - -Heparin gtt Thank you for allowing us to participate in the care of this patient.Please refer to my attending physician's documentation for any further recommendations. (2) Acute metabolic encephalopathy: (3) Acute respiratory failure with hypoxia: (4) Right lower lobe pneumonia: (5) Shock liver: (6) Septic shock: (7) Bacteremia: (8) Cardiomyopathy: (9) Atrial fibrillation with RVR: (10) Left ventricular apical thrombus: (11) Prolonged QT interval: (12) Cancer related pain: (13) Acute renal failure: (14) Lactic acidosis: (15) Elevated troponin: (16) Regular alcohol consumption: (17) History of bilateral breast cancer: Admission and Anticipated Discharge Date Admission Date: December 01, 2022 Supervising Physician Co-Signing Physician Notes Patient seen and examined. EMR reviewed. Discussed on MDR and with CC bedside RN. Agree with AP as noted by FP resident. Pt improved and tolerated SBT. Extubated to NC. Continue pulm toilet. UOP better but renal numbers still about the same. continue to follow. Continue abx under ID direction. Continue heparin. Defer amio to cardiology. PT and OT evaluations with speech/swallow evaluation. Keep martinez for now for I/O monitori ng. Observe in ICU for now. May be able to transfer next 24 hours if does well. Subjective Patient seen at bedside this morning. Remains intubated. Plan to extubate this morning. Urine output improving. Review of Systems Review of Systems: Unobtainable due to endotracheal tube Physical Exam Physical Exam: General: Sedated HEENT: PERRLA, mucous membranes dry Neuro: unable to assess as patient is intubated Chest: equal rise and fall of the chest, ventilation and oxygenation improved Cardiac: Regular rate and rhythm, +S3, skin cool dry, cap refill <3 seconds, peripheral pulses diminished, no JVD, trace distal lower extremity edema GI: NABS x 4 quadrants, soft, no rebound tenderness or guarding. : Martinez to gravity draining small amount of urine Results & Data Results & Data ([facility]) Vital Signs (Past 12 Hours) Vital Signs Temp Pulse Resp BP Pulse Ox O2 Del Method O2 Flow Rate 12/04/22 07:05 50 L 8 L 92 12/04/22 06:00 36.7 C 50 L 13 94 12/04/22 06:00 100/69 12/04/22 05:00 36.5 C 51 L 12 105/67 94 Mechanical Vent 12/04/22 05:00 105/67 12/04/22 04:01 36.4 C L 50 L 12 96 12/04/22 04:00 36.4 C L 50 L 12 108/70 96 Mechanical Vent 12/04/22 03:01 36.3 C L 49 L 19 98/60 L 95 12/04/22 03:00 36.3 C L 49 L 10 L 94 12/04/22 05:28 49 L 17 95 12/04/22 04:00 49 L 111/61 12/04/22 04:00 12/03/22 23:18 48 L 17 97 12/04/22 02:01 36.3 C L 49 L 12 111/61 94 12/04/22 02:00 36.3 C L 49 L 14 95 12/04/22 01:00 36.3 C L 49 L 14 96/63 L 95 Mechanical Vent 12/04/22 00:01 36.4 C L 50 L 9 L 124/63 94 12/04/22 00:00 36.4 C L 50 L 12 95 12/03/22 23:00 36.5 C 48 L 11 L 104/67 97 Mechanical Vent 12/03/22 22:00 36.6 C 49 L 9 L 96/62 L 96 Mechanical Vent 12/03/22 21:00 36.6 C 50 L 13 98/66 L 95 12/03/22 20:19 36.7 C 50 L 10 L 95/59 L 93 12/03/22 20:00 59 L 13 92 12/03/22 20:00 Mechanical Vent 45 12/04/22 00:00 50 L 98/53 L 12/03/22 20:00 49 L 12/04/22 00:00 12/04/22 00:00 49 L 12/03/22 20:00 12/03/22 20:00 49 L 15 93 FiO2 12/04/22 07:05 35 12/04/22 06:00 12/04/22 06:00 12/04/22 05:00 45 12/04/22 05:00 12/04/22 04:01 12/04/22 04:00 45 12/04/22 03:01 12/04/22 03:00 12/04/22 05:28 40 12/04/22 04:00 12/04/22 04:00 40 12/03/22 23:18 40 12/04/22 02:01 40 12/04/22 02:00 12/04/22 01:00 40 12/04/22 00:01 40 12/04/22 00:00 40 12/03/22 23:00 40 01/10/23 22:00 45 12/03/22 21:00 12/03/22 20:19 12/03/22 20:00 12/03/22 20:00 12/04/22 00:00 12/03/22 20:00 12/04/22 00:00 40 12/04/22 00:00 12/03/22 20:00 45 12/03/22 20:00 45 Laboratory Results 12/04/22 12/04/22 12/04/22 Range/Units 05:16 04:55 04:55 WBC (4.8-10.8) K/ul RBC (3.93-5.22) M/uL Hgb (12.0-16.0) g/dl Hct (34.1-44.9) % MCV (80.0-100.0) fL MCH (25.0-34.0) pg MCHC (32.0-36.0) g/dL RDW Std Deviation (36.4-46.3) fL RDW Coeff of Cheri (11.5-14.5) % Plt Count (130-400) K/uL MPV (9.4-12.3) fL Immature Gran % (Auto) % Neut % (Auto) % Lymph % (Auto) % [place] % (Auto) % Eos % (Auto) % Baso % (Auto) % Neut # (Auto) (1.4-6.5) K/uL Lymph # (Auto) (1.2-3.4) K/uL [place] # (Auto) (0.24-0.82) K/uL Eos # (Auto) (0-0.50) K/uL Baso # (Auto) (0-0.2) K/uL Immature Gran # (Auto) (0.00-0.02) K/uL Absolute Nucleated RBC (0-0) K/uL Nucleated RBC % (auto) % RBC Morphology PT (9.0-12.0) Seconds INR (0.9-1.1) APTT (21.0-31.0) Seconds PTT Ratio Sample Site Art Line POC pH 7.47 H (7.35-7.45) POC pCO2 39 (35-46) mmHg POC pO2 80 (80-95) mmHg POC HCO3 28 H (19-24) martinez/L POC Total CO2 30 (24-31) mmol/L POC Base Excess 5.0 H (-9-1.8) martinez/L ABG pH (7.35-7.45) ABG pCO2 (35-46) mmHg ABG pO2 (80-95) mmHg ABG HCO3 (19-24) mmol/L POC ABG O2 Sat 96.0 H (90-95) % ABG O2 Saturation (90-95) % ABG Base Excess (-9-1.8) mEq/L Rafal Test NA (Pos) Oxygen Given O2 Delivery Device Ventilator POC O2 Rate 12 POC FiO2 40 % Tidal Volume 350 PEEP 5 Sodium (136-145) mmol/L Potassium (3.5-5.1) mmol/L Chloride (98-107) mmol/L Carbon Dioxide (21-32) mmol/L Anion Gap (3-11) BUN (6-23) mg/dl Creatinine (0.6-1.2) mg/dl Est Cr Clr Drug Dosing ml/min Est GFR ( Amer) ml/min Est GFR (Non-Af Amer) ml/min BUN/Creatinine Ratio (10-20) Glucose (70-99(Fasting)) mg/dl POC Glucose (70-99) mg/dl Lactate (0.4-2.0) mmol/L Calcium (8.5-10.1) mg/dl Ionized Calcium 0.87 L (1.12-1.32) mmol/L Phosphorus (2.5-4.9) mg/dl Magnesium (1.7-2.4) mg/dl Total Bilirubin (0.2-1.0) mg/dl Direct Bilirubin (0-0.2) mg/dl AST (13-39) U/L ALT (7-52) U/L Alkaline Phosphatase (34-104) U/L Total Protein (6.0-8.3) gm/dl Albumin (3.4-5.0) gm/dl Globulin (2.5-4.0) gm/dl Albumin/Globulin Ratio (0.9-2) Procalcitonin (0-0.5) ng/ml Random Vancomycin 23.0 H (10-20) mcg/ml Hepatitis A IgM Ab Hep Bs Antigen Hep Bs Ag Confirmation Hep B Core IgM Ab Hepatitis C Ab (EIA) Hep C Ab Signal/Cutoff Urine Legionella Ag 12/04/22 12/04/22 12/04/22 Range/Units 04:55 04:55 04:55 WBC (4.8-10.8) K/ul RBC (3.93-5.22) M/uL Hgb (12.0-16.0) g/dl Hct (34.1-44.9) % MCV (80.0-100.0) fL MCH (25.0-34.0) pg MCHC (32.0-36.0) g/dL RDW Std Deviation (36.4-46.3) fL RDW Coeff of Cheri (11.5-14.5) % Plt Count (130-400) K/uL MPV (9.4-12.3) fL Immature Gran % (Auto) % Neut % (Auto) % Lymph % (Auto) % [place] % (Auto) % Eos % (Auto) % Baso % (Auto) % Neut # (Auto) (1.4-6.5) K/uL Lymph # (Auto) (1.2-3.4) K/uL [place] # (Auto) (0.24-0.82) K/uL Eos # (Auto) (0-0.50) K/uL Baso # (Auto) (0-0.2) K/uL Immature Gran # (Auto) (0.00-0.02) K/uL Absolute Nucleated RBC (0-0) K/uL Nucleated RBC % (auto) % RBC Morphology PT 11.9 (9.0-12.0) Seconds INR 1.1 (0.9-1.1) APTT 61.5 H* (21.0-31.0) Seconds PTT Ratio 2.2 Sample Site POC pH (7.35-7.45) POC pCO2 (35-46) mmHg POC pO2 (80-95) mmHg POC HCO3 (19-24) martinez/L POC Total CO2 (24-31) mmol/L POC Base Excess (-9-1.8) martinez/L ABG pH (7.35-7.45) ABG pCO2 (35-46) mmHg ABG pO2 (80-95) mmHg ABG HCO3 (19-24) mmol/L POC ABG O2 Sat (90-95) % ABG O2 Saturation (90-95) % ABG Base Excess (-9-1.8) mEq/L Rafal Test (Pos) Oxygen Given O2 Delivery Device POC O2 Rate POC FiO2 % Tidal Volume PEEP Sodium 137 (136-145) mmol/L Potassium 3.3 L (3.5-5.1) mmol/L Chloride 96 L (98-107) mmol/L Carbon Dioxide 27 (21-32) mmol/L Anion Gap 14 H (3-11) BUN 61 H (6-23) mg/dl Creatinine 4.68 H* (0.6-1.2) mg/dl Est Cr Clr Drug Dosing 11.5 ml/min Est GFR ( Amer) 10.2 ml/min Est GFR (Non-Af Amer) 8.8 ml/min BUN/Creatinine Ratio 13.0 (10-20) Glucose 176 H (70-99(Fasting)) mg/dl POC Glucose (70-99) mg/dl Lactate (0.4-2.0) mmol/L Calcium 7.0 L (8.5-10.1) mg/dl Ionized Calcium (1.12-1.32) mmol/L Phosphorus 5.6 H (2.5-4.9) mg/dl Magnesium 2.4 (1.7-2.4) mg/dl Total Bilirubin 0.5 (0.2-1.0) mg/dl Direct Bilirubin 0.2 (0-0.2) mg/dl AST 591 H (13-39) U/L ALT 679 H (7-52) U/L Alkaline Phosphatase 115 H (34-104) U/L Total Protein 5.6 L (6.0-8.3) gm/dl Albumin 2.9 L (3.4-5.0) gm/dl Globulin 2.7 (2.5-4.0) gm/dl Albumin/Globulin Ratio 1.1 (0.9-2) Procalcitonin 3.73 H (0-0.5) ng/ml Random Vancomycin (10-20) mcg/ml Hepatitis A IgM Ab Hep Bs Antigen Hep Bs Ag Confirmation Hep B Core IgM Ab Hepatitis C Ab (EIA) Hep C Ab Signal/Cutoff Urine Legionella Ag 12/04/22 12/03/22 12/03/22 Range/Units 04:55 21:53 17:01 WBC 7.08 (4.8-10.8) K/ul RBC 2.34 L (3.93-5.22) M/uL Hgb 8.9 L (12.0-16.0) g/dl Hct 25.1 L (34.1-44.9) % MCV 107.3 H (80.0-100.0) fL MCH 38.0 H (25.0-34.0) pg MCHC 35.5 (32.0-36.0) g/dL RDW Std Deviation 54.7 H (36.4-46.3) fL RDW Coeff of Cheri 14.3 (11.5-14.5) % Plt Count 134 (130-400) K/uL MPV 11.7 (9.4-12.3) fL Immature Gran % (Auto) 2.1 % Neut % (Auto) 92.7 % Lymph % (Auto) 3.4 % [place] % (Auto) 1.8 % Eos % (Auto) 0.0 % Baso % (Auto) 0.0 % Neut # (Auto) 6.56 H (1.4-6.5) K/uL Lymph # (Auto) 0.24 L (1.2-3.4) K/uL [place] # (Auto) 0.13 L (0.24-0.82) K/uL Eos # (Auto) 0.00 (0-0.50) K/uL Baso # (Auto) 0.00 (0-0.2) K/uL Immature Gran # (Auto) 0.15 H (0.00-0.02) K/uL Absolute Nucleated RBC 0.09 H (0-0) K/uL Nucleated RBC % (auto) 1.3 % RBC Morphology Unremarkable PT (9.0-12.0) Seconds INR (0.9-1.1) APTT (21.0-31.0) Seconds PTT Ratio Sample Site POC pH (7.35-7.45) POC pCO2 (35-46) mmHg POC pO2 (80-95) mmHg POC HCO3 (19-24) martinez/L POC Total CO2 (24-31) mmol/L POC Base Excess (-9-1.8) martinez/L ABG pH (7.35-7.45) ABG pCO2 (35-46) mmHg ABG pO2 (80-95) mmHg ABG HCO3 (19-24) mmol/L POC ABG O2 Sat (90-95) % ABG O2 Saturation (90-95) % ABG Base Excess (-9-1.8) mEq/L Rafal Test (Pos) Oxygen Given O2 Delivery Device POC O2 Rate POC FiO2 % Tidal Volume PEEP Sodium (136-145) mmol/L Potassium (3.5-5.1) mmol/L Chloride (98-107) mmol/L Carbon Dioxide (21-32) mmol/L Anion Gap (3-11) BUN (6-23) mg/dl Creatinine (0.6-1.2) mg/dl Est Cr Clr Drug Dosing ml/min Est GFR ( Amer) ml/min Est GFR (Non-Af Amer) ml/min BUN/Creatinine Ratio (10-20) Glucose (70-99(Fasting)) mg/dl POC Glucose 166 H (70-99) mg/dl Lactate (0.4-2.0) mmol/L Calcium (8.5-10.1) mg/dl Ionized Calcium (1.12-1.32) mmol/L Phosphorus (2.5-4.9) mg/dl Magnesium (1.7-2.4) mg/dl Total Bilirubin (0.2-1.0) mg/dl Direct Bilirubin (0-0.2) mg/dl AST (13-39) U/L ALT (7-52) U/L Alkaline Phosphatase (34-104) U/L Total Protein (6.0-8.3) gm/dl Albumin (3.4-5.0) gm/dl Globulin (2.5-4.0) gm/dl Albumin/Globulin Ratio (0.9-2) Procalcitonin (0-0.5) ng/ml Random Vancomycin 13.6 (10-20) mcg/ml Hepatitis A IgM Ab Hep Bs Antigen Hep Bs Ag Confirmation Hep B Core IgM Ab Hepatitis C Ab (EIA) Hep C Ab Signal/Cutoff Urine Legionella Ag 12/03/22 12/03/22 12/03/22 Range/Units 15:12 13:52 13:52 WBC (4.8-10.8) K/ul RBC (3.93-5.22) M/uL Hgb (12.0-16.0) g/dl Hct (34.1-44.9) % MCV (80.0-100.0) fL MCH (25.0-34.0) pg MCHC (32.0-36.0) g/dL RDW Std Deviation (36.4-46.3) fL RDW Coeff of Cheri (11.5-14.5) % Plt Count (130-400) K/uL MPV (9.4-12.3) fL Immature Gran % (Auto) % Neut % (Auto) % Lymph % (Auto) % [place] % (Auto) % Eos % (Auto) % Baso % (Auto) % Neut # (Auto) (1.4-6.5) K/uL Lymph # (Auto) (1.2-3.4) K/uL [place] # (Auto) (0.24-0.82) K/uL Eos # (Auto) (0-0.50) K/uL Baso # (Auto) (0-0.2) K/uL Immature Gran # (Auto) (0.00-0.02) K/uL Absolute Nucleated RBC (0-0) K/uL Nucleated RBC % (auto) % RBC Morphology PT (9.0-12.0) Seconds INR (0.9-1.1) APTT (21.0-31.0) Seconds PTT Ratio Sample Site POC pH (7.35-7.45) POC pCO2 (35-46) mmHg POC pO2 (80-95) mmHg POC HCO3 (19-24) martinez/L POC Total CO2 (24-31) mmol/L POC Base Excess (-9-1.8) martinez/L ABG pH (7.35-7.45) ABG pCO2 (35-46) mmHg ABG pO2 (80-95) mmHg ABG HCO3 (19-24) mmol/L POC ABG O2 Sat (90-95) % ABG O2 Saturation (90-95) % ABG Base Excess (-9-1.8) mEq/L Rafal Test (Pos) Oxygen Given O2 Delivery Device POC O2 Rate POC FiO2 % Tidal Volume PEEP Sodium 137 (136-145) mmol/L Potassium 3.4 L (3.5-5.1) mmol/L Chloride 96 L (98-107) mmol/L Carbon Dioxide 28 (21-32) mmol/L Anion Gap 13 H (3-11) BUN 57 H (6-23) mg/dl Creatinine 4.58 H* (0.6-1.2) mg/dl Est Cr Clr Drug Dosing 11.8 ml/min Est GFR ( Amer) 10.5 ml/min Est GFR (Non-Af Amer) 9.1 ml/min BUN/Creatinine Ratio 12.4 (10-20) Glucose 147 H (70-99(Fasting)) mg/dl POC Glucose 150 H (70-99) mg/dl Lactate (0.4-2.0) mmol/L Calcium 7.6 L (8.5-10.1) mg/dl Ionized Calcium (1.12-1.32) mmol/L Phosphorus (2.5-4.9) mg/dl Magnesium (1.7-2.4) mg/dl Total Bilirubin (0.2-1.0) mg/dl Direct Bilirubin (0-0.2) mg/dl AST (13-39) U/L ALT (7-52) U/L Alkaline Phosphatase (34-104) U/L Total Protein (6.0-8.3) gm/dl Albumin (3.4-5.0) gm/dl Globulin (2.5-4.0) gm/dl Albumin/Globulin Ratio (0.9-2) Procalcitonin (0-0.5) ng/ml Random Vancomycin (10-20) mcg/ml Hepatitis A IgM Ab Pending Hep Bs Antigen Pending Hep Bs Ag Confirmation Pending Hep B Core IgM Ab Pending Hepatitis C Ab (EIA) Pending Hep C Ab Signal/Cutoff Pending Urine Legionella Ag 12/03/22 12/03/22 12/03/22 Range/Units 12:30 11:26 09:44 WBC (4.8-10.8) K/ul RBC (3.93-5.22) M/uL Hgb (12.0-16.0) g/dl Hct (34.1-44.9) % MCV (80.0-100.0) fL MCH (25.0-34.0) pg MCHC (32.0-36.0) g/dL RDW Std Deviation (36.4-46.3) fL RDW Coeff of Cheri (11.5-14.5) % Plt Count (130-400) K/uL MPV (9.4-12.3) fL Immature Gran % (Auto) % Neut % (Auto) % Lymph % (Auto) % [place] % (Auto) % Eos % (Auto) % Baso % (Auto) % Neut # (Auto) (1.4-6.5) K/uL Lymph # (Auto) (1.2-3.4) K/uL [place] # (Auto) (0.24-0.82) K/uL Eos # (Auto) (0-0.50) K/uL Baso # (Auto) (0-0.2) K/uL Immature Gran # (Auto) (0.00-0.02) K/uL Absolute Nucleated RBC (0-0) K/uL Nucleated RBC % (auto) % RBC Morphology PT (9.0-12.0) Seconds INR (0.9-1.1) APTT (21.0-31.0) Seconds PTT Ratio Sample Site POC pH (7.35-7.45) POC pCO2 (35-46) mmHg POC pO2 (80-95) mmHg POC HCO3 (19-24) martinez/L POC Total CO2 (24-31) mmol/L POC Base Excess (-9-1.8) martinez/L ABG pH 7.47 H (7.35-7.45) ABG pCO2 39 (35-46) mmHg ABG pO2 92 (80-95) mmHg ABG HCO3 28 H (19-24) mmol/L POC ABG O2 Sat (90-95) % ABG O2 Saturation 98.3 H (90-95) % ABG Base Excess 4.4 H (-9-1.8) mEq/L Rafal Test Pos (Pos) Oxygen Given 45% O2 Delivery Device POC O2 Rate POC FiO2 % Tidal Volume PEEP Sodium (136-145) mmol/L Potassium (3.5-5.1) mmol/L Chloride (98-107) mmol/L Carbon Dioxide (21-32) mmol/L Anion Gap (3-11) BUN (6-23) mg/dl Creatinine (0.6-1.2) mg/dl Est Cr Clr Drug Dosing ml/min Est GFR ( Amer) ml/min Est GFR (Non-Af Amer) ml/min BUN/Creatinine Ratio (10-20) Glucose (70-99(Fasting)) mg/dl POC Glucose 164 H (70-99) mg/dl Lactate (0.4-2.0) mmol/L Calcium (8.5-10.1) mg/dl Ionized Calcium (1.12-1.32) mmol/L Phosphorus (2.5-4.9) mg/dl Magnesium (1.7-2.4) mg/dl Total Bilirubin (0.2-1.0) mg/dl Direct Bilirubin (0-0.2) mg/dl AST (13-39) U/L ALT (7-52) U/L Alkaline Phosphatase (34-104) U/L Total Protein (6.0-8.3) gm/dl Albumin (3.4-5.0) gm/dl Globulin (2.5-4.0) gm/dl Albumin/Globulin Ratio (0.9-2) Procalcitonin (0-0.5) ng/ml Random Vancomycin (10-20) mcg/ml Hepatitis A IgM Ab Hep Bs Antigen Hep Bs Ag Confirmation Hep B Core IgM Ab Hepatitis C Ab (EIA) Hep C Ab Signal/Cutoff Urine Legionella Ag Pending 12/03/22 12/03/22 Range/Units 08:32 08:12 WBC (4.8-10.8) K/ul RBC (3.93-5.22) M/uL Hgb (12.0-16.0) g/dl Hct (34.1-44.9) % MCV (80.0-100.0) fL MCH (25.0-34.0) pg MCHC (32.0-36.0) g/dL RDW Std Deviation (36.4-46.3) fL RDW Coeff of Cheri (11.5-14.5) % Plt Count (130-400) K/uL MPV (9.4-12.3) fL Immature Gran % (Auto) % Neut % (Auto) % Lymph % (Auto) % [place] % (Auto) % Eos % (Auto) % Baso % (Auto) % Neut # (Auto) (1.4-6.5) K/uL Lymph # (Auto) (1.2-3.4) K/uL [place] # (Auto) (0.24-0.82) K/uL Eos # (Auto) (0-0.50) K/uL Baso # (Auto) (0-0.2) K/uL Immature Gran # (Auto) (0.00-0.02) K/uL Absolute Nucleated RBC (0-0) K/uL Nucleated RBC % (auto) % RBC Morphology PT (9.0-12.0) Seconds INR (0.9-1.1) APTT (21.0-31.0) Seconds PTT Ratio Sample Site POC pH (7.35-7.45) POC pCO2 (35-46) mmHg POC pO2 (80-95) mmHg POC HCO3 (19-24) martinez/L POC Total CO2 (24-31) mmol/L POC Base Excess (-9-1.8) martinez/L ABG pH (7.35-7.45) ABG pCO2 (35-46) mmHg ABG pO2 (80-95) mmHg ABG HCO3 (19-24) mmol/L POC ABG O2 Sat (90-95) % ABG O2 Saturation (90-95) % ABG Base Excess (-9-1.8) mEq/L Rafal Test (Pos) Oxygen Given O2 Delivery Device POC O2 Rate POC FiO2 % Tidal Volume PEEP Sodium (136-145) mmol/L Potassium (3.5-5.1) mmol/L Chloride (98-107) mmol/L Carbon Dioxide (21-32) mmol/L Anion Gap (3-11) BUN (6-23) mg/dl Creatinine (0.6-1.2) mg/dl Est Cr Clr Drug Dosing ml/min Est GFR ( Amer) ml/min Est GFR (Non-Af Amer) ml/min BUN/Creatinine Ratio (10-20) Glucose (70-99(Fasting)) mg/dl POC Glucose 162 H (70-99) mg/dl Lactate 1.5 (0.4-2.0) mmol/L Calcium (8.5-10.1) mg/dl Ionized Calcium (1.12-1.32) mmol/L Phosphorus (2.5-4.9) mg/dl Magnesium (1.7-2.4) mg/dl Total Bilirubin (0.2-1.0) mg/dl Direct Bilirubin (0-0.2) mg/dl AST (13-39) U/L ALT (7-52) U/L Alkaline Phosphatase (34-104) U/L Total Protein (6.0-8.3) gm/dl Albumin (3.4-5.0) gm/dl Globulin (2.5-4.0) gm/dl Albumin/Globulin Ratio (0.9-2) Procalcitonin (0-0.5) ng/ml Random Vancomycin (10-20) mcg/ml Hepatitis A IgM Ab Hep Bs Antigen Hep Bs Ag Confirmation Hep B Core IgM Ab Hepatitis C Ab (EIA) Hep C Ab Signal/Cutoff Urine Legionella Ag Resident Activity Tracking Resident Involvement: Resident Care Provided Care Provided: Adult Hospital Medicine (1) Acute renal failure Acute renal failure type: unspecified Qualified Code(s): N17.9 - Acute kidney failure, unspecified (2) Right lower lobe pneumonia Pneumonia type: due to unspecified organism Qualified Code(s): J18.9 - Pneumonia, unspecified organism
[2022-12-04] MEDS: FOLIC ACID 1 MG in SYRINGE 9.8 ML IV SCH (08:05)
[2022-12-04] MEDS: ASPIRIN 81 MG CHEW OG SCH (08:05)
[2022-12-04] MEDS: FLUDROCORTISONE ACETATE 0.1 MG TAB PO SCH (08:05)
[2022-12-04] MEDS: THIAMINE HCL 500 MG in SODIUM CHLORIDE 0.9% 50 ML IV SCH (08:07)
[2022-12-04] MEDS ORDERED: HYDROmorphone INJ 1 MG/ML SYRINGE IV PRN (08:39)
[2022-12-04] MEDS ORDERED: STAT IV STA (08:43)
[2022-12-04] MEDS ORDERED: CALCIUM GLUCONATE 10% 2,000 MG in DEXTROSE 5% 50 ML IV ONE (08:43)
[2022-12-04] MEDS ORDERED: HYDROCORTISONE SOD 50 MG in SYRINGE 0 ML IV SCH (08:45)
--- NOTE | 2022-12-04 08:59 | Nephrology Progress Note ---
Date of Service December 04, 2022 Assessment & Plan (1) Acute renal failure: Plan: * ATN due to pneumonia/septic shock/rhabdomyolysis in the setting of ARB therapy * Now nonoliguric, remains 8 L volume +. Cr stable overnight * Recommend cautious supplementation of potassium and calcium * No acute indication for HD today. Monitor UO, PRP (2) Right lower lobe pneumonia: Plan: * Continue Cefepime therapy (3) Acute respiratory failure with hypoxia: Plan: * Extubated this morning (4) Shock circulatory: Plan: * Resolved. Pressors have been stopped (5) Shock liver: Plan: * Improving (6) Left ventricular apical thrombus: Plan: * On Heparin, Vancomycin, Cefepime (7) Rhabdomyolysis: Plan Plan of care reviewed w/ ICU team this am Admission and Anticipated Discharge Date Admission Date: December 01, 2022 Subjective Ms. James was evaluated in the ICU. She was extubated this morning. She will open her eyes and speak her name. Pressors remain off. Furosemide was held overnight. UO was 2976 cc last 24 hrs. Review of Systems Review of Systems: Unobtainable due to cognitive status Physical Exam Constitutional: + ill appearing Eyes: PERRL, conjunctivae normal, anicteric sclerae Neck: trachea midline, no thyromegaly Cardiovascular: RRR, no murmur, no edema Gastrointestinal (Abdomen): Inspection/Auscultation: abdomen normal to inspection and + hypoactive bowel sounds Neurologic: awake Results & Data ([facility]) Vital Signs (Past 12 Hours) Vital Signs Temp Pulse Resp BP Pulse Ox O2 Del Method FiO2 12/04/22 07:05 50 L 8 L 92 35 12/04/22 06:00 36.7 C 50 L 13 94 12/04/22 06:00 100/69 12/04/22 05:00 36.5 C 51 L 12 105/67 94 Mechanical Vent 45 12/04/22 05:00 105/67 12/04/22 04:01 36.4 C L 50 L 12 96 12/04/22 04:00 36.4 C L 50 L 12 108/70 96 Mechanical Vent 45 12/04/22 03:01 36.3 C L 49 L 19 98/60 L 95 12/04/22 03:00 36.3 C L 49 L 10 L 94 12/04/22 05:28 49 L 17 95 40 12/04/22 04:00 49 L 111/61 12/04/22 04:00 40 12/03/22 23:18 48 L 17 97 40 12/04/22 02:01 36.3 C L 49 L 12 111/61 94 40 12/04/22 02:00 36.3 C L 49 L 14 95 12/04/22 01:00 36.3 C L 49 L 14 96/63 L 95 Mechanical Vent 40 12/04/22 00:01 36.4 C L 50 L 9 L 124/63 94 40 12/04/22 00:00 36.4 C L 50 L 12 95 40 12/03/22 23:00 36.5 C 48 L 11 L 104/67 97 Mechanical Vent 40 12/03/22 22:00 36.6 C 49 L 9 L 96/62 L 96 Mechanical Vent 45 12/03/22 21:00 36.6 C 50 L 13 98/66 L 95 12/04/22 00:00 50 L 98/53 L 12/04/22 00:00 40 12/04/22 00:00 49 L Laboratory Results Laboratory Tests 12/04/22 12/04/22 04:55 04:55 WBC 7.08 Hgb 8.9 L Hct 25.1 L Plt Count 134 Sodium 137 Potassium 3.3 L Chloride 96 L Carbon Dioxide 27 BUN 61 H Creatinine 4.68 H* Glucose 176 H Calcium 7.0 L AST 591 H ALT 679 H Albumin 2.9 L Laboratory Tests 12/03/22 12/04/22 13:52 04:55 Creatinine 4.58 H* 4.68 H* PG Care Time/CCT Total # of Minutes Spent Total Time Spent with Patient: Total time spent is greater than 50% in coordination of care (as documented) at patient's floor/unit and/or counseling patient: Coding Level of Care Code 85835 SUB INP/OBS CARE 3/50MIN Diagnoses Acute renal failure N17.9 Acute renal failure type: unspecified Right lower lobe pneumonia J18.9 Pneumonia type: due to unspecified organism Acute respiratory failure with hypoxia J96.01 Shock circulatory R57.9 Shock liver K72.00 Left ventricular apical thrombus I51.3 Rhabdomyolysis M62.82 Rhabdomyolysis type: non-traumatic (1) Acute renal failure Acute renal failure type: unspecified Qualified Code(s): N17.9 - Acute kidney failure, unspecified (2) Rhabdomyolysis Rhabdomyolysis type: non-traumatic Qualified Code(s): M62.82 - Rhabdomyolysis (3) Right lower lobe pneumonia Pneumonia type: due to unspecified organism Qualified Code(s): J18.9 - Pneumonia, unspecified organism
--- NOTE | 2022-12-04 09:01 | XRay Report ---
XR chest 1V portable HISTORY: Respiratory failure. while intubated- evaluate lines and lung john COMPARISON: Chest 12/03/2022. FINDINGS: Endotracheal tube and nasogastric tube remain unchanged in position. A coaxial remains enla rged. Bilateral pleural effusions and bibasilar airspace opacities persist. No evidence for pulmonary edema. IMPRESSION: 1. Satisfactory support line placement. 2. No change in the bibasilar airspace opacities and pleural effusions. ACT 112: Negative or not required by law. Electronically signed by: Freddy New M.D. 12/04/2022 8:59 AM
--- NOTE | 2022-12-04 10:00 | Cardiology Progress Note ---
Date of Service December 04, 2022 Assessment & Plan (1) Atrial fibrillation with RVR: (2) Cardiomyopathy: (3) Left ventricular apical thrombus: (4) Anticoagulant long-term use: (5) Sinus bradycardia: Plan 1. Atrial fibrillation: She had a relatively brief episode of atrial fibril lation, lasting less than 5 hours, at a rate which was somewhat elevated. I think it would be prudent to continue amiodarone for the time being, I would switch to 200 mg orally when possible, that may keep her out of atrial fibrillation in the future since we may have difficulty controlling her heart rate due to her resting sinus bradycardia. Anticoagulation as noted below. 2. Cardiomyopathy: I suspect her cardiomyopathy is stress related although only serial echocardiograms will determine that for sure. Often this resolves quickly as patients improve, I would consider another echocardiogram this week if her cardiac condition continues to improve, sooner if she deteriorates. As noted below we may have to discontinue beta-blockade so will be helpful to know whether she has ongoing left ventricular dysfunction to help determine the use of long-term medications for left ventricular dysfunction. 3. Left ventricular thrombus: Although conceivably this is not a thrombus, that seems the most likely and I think we should treat it as such. We can follow with echocardiography on anticoagulation. 4. Anticoagulation: For the atrial fibrillation it would be borderline as to whether she should be on an anticoagulant, certainly her [id number] score would suggest it however with only several hours of atrial fibrillation while she was very ill that might modify her approach, however with her probable apical thrombus I would continue it. I would consider using the newer agents over the long run. 5. 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 She does take metoprolol succinate at home and historically her heart rate has not been low however it is now even off of beta-blockade. I would avoid beta-blockers for now but continue the amiodarone as noted above. At this point I would not consider a pacemaker. Admission and Anticipated Discharge Date Admission Date: December 01, 2022 Subjective Patient's chart, data and recent events reviewed. Recently she has been suffering with multiorgan dysfunction including metastatic cancer, septic shock as well as paroxysmal atrial fibrillation with a rapid ventricular response. She was intubated but is now extubated, she is awake and conversational and her son is at her bed An echocardiogram done February 12, 2022 showed normal left ventricular systolic function with mild concentric left ventricular hypertrophy. An echocardiogram this admission on December 02, 2022 shows normal left ventricular size with a left ventricular ejection fraction of 25 to 30% with global hypokinesis. A probable left ventricular thrombus on a pedunculated stalk is also seen. There is also evidence of right ventricular pressure or volume overload. Her electrocardiogram on presentation showed sinus rhythm with left anterior fascicular block but no significant ST deviation. The QTC at that time was somewhat prolonged. An electrocardiogram December 03, 2022 shows sinus bradycardia 55 bpm with left anterior fascicular block and a prolonged QTC as well as some ST-T abnormalities.side. She has no specific complaints today. She denies lightheadedness, dizziness, chest discomfort or shortness of breath currently. Physical Exam Physical Exam: Constitutional: Alert, cooperative and in no clear distress. HEENT: Unremarkable Neck: No jugular venous distention, carotid pulses are normal and equal bilaterally without bruits. Pulmonary: Clear to auscultation bilaterally. Cardiac: Regular rhythm with no murmur, gallop or rub. Abdomen: Soft, nontender with normal bowel sounds. Extremities: No edema. Distal pulses intact. Neurologic: No focal findings. Gait was not tested. Skin: No rash, ecchymoses or petechiae. Results & Data ([facility]) Vital Signs (Past 12 Hours) Vital Signs Temp Pulse Resp BP Pulse Ox O2 Del Method FiO2 12/04/22 07:05 50 L 8 L 92 35 12/04/22 06:00 36.7 C 50 L 13 94 12/04/22 06:00 100/69 12/04/22 05:00 36.5 C 51 L 12 105/67 94 Mechanical Vent 45 12/04/22 05:00 105/67 12/04/22 04:01 36.4 C L 50 L 12 96 12/04/22 04:00 36.4 C L 50 L 12 108/70 96 Mechanical Vent 45 12/04/22 03:01 36.3 C L 49 L 19 98/60 L 95 12/04/22 03:00 36.3 C L 49 L 10 L 94 12/04/22 05:28 49 L 17 95 40 01/11/23 04:00 49 L 111/61 01/11/23 04:00 40 12/03/22 23:18 48 L 17 97 40 12/04/22 02:01 36.3 C L 49 L 12 111/61 94 40 12/04/22 02:00 36.3 C L 49 L 14 95 12/04/22 01:00 36.3 C L 49 L 14 96/63 L 95 Mechanical Vent 40 12/04/22 00:01 36.4 C L 50 L 9 L 124/63 94 40 12/04/22 00:00 36.4 C L 50 L 12 95 40 12/03/22 23:00 36.5 C 48 L 11 L 104/67 97 Mechanical Vent 40 12/03/22 22:00 36.6 C 49 L 9 L 96/62 L 96 Mechanical Vent 45 12/04/22 00:00 50 L 98/53 L 12/04/22 00:00 40 12/04/22 00:00 49 L Laboratory Results Cardiac Enzymes 12/04/22 Range/Units 04:55 AST 591 H (13-39) U/L Coagulation 12/04/22 Range/Units 04:55 PT 11.9 (9.0-12.0) Seconds APTT 61.5 H* (21.0-31.0) Seconds CBC 12/04/22 Range/Units 04:55 WBC 7.08 (4.8-10.8) K/ul RBC 2.34 L (3.93-5.22) M/uL Hgb 8.9 L (12.0-16.0) g/dl Hct 25.1 L (34.1-44.9) % Plt Count 134 (130-400) K/uL Neut # (Auto) 6.56 H (1.4-6.5) K/uL Lymph # (Auto) 0.24 L (1.2-3.4) K/uL [place] # (Auto) 0.13 L (0.24-0.82) K/uL Eos # (Auto) 0.00 (0-0.50) K/uL Baso # (Auto) 0.00 (0-0.2) K/uL Comprehensive Metabolic Panel 12/03/22 12/04/22 Range/Units 13:52 04:55 Sodium 137 137 (136-145) mmol/L Potassium 3.4 L 3.3 L (3.5-5.1) mmol/L Chloride 96 L 96 L (98-107) mmol/L Carbon Dioxide 28 27 (21-32) mmol/L BUN 57 H 61 H (6-23) mg/dl Creatinine 4.58 H* 4.68 H* (0.6-1.2) mg/dl Glucose 147 H 176 H (70-99(Fasting)) mg/dl Calcium 7.6 L 7.0 L (8.5-10.1) mg/dl Direct Bilirubin 0.2 (0-0.2) mg/dl AST 591 H (13-39) U/L ALT 679 H (7-52) U/L Alkaline Phosphatase 115 H (34-104) U/L Total Protein 5.6 L (6.0-8.3) gm/dl Albumin 2.9 L (3.4-5.0) gm/dl Intake and Output 12/03/22 12/04/22 12/04/22 22:59 06:59 14:59 Intake Total 934.218 / 2278.851 700.233 / 2278.851 32.838 / 32.838 Output Total 1100 / 2976 1151 / 2976 Balance -165.782 / -697.149 -450.767 / -697.149 32.838 / 32.838 Intake: IV 934.218 / 1996.851 418.233 / 1996.851 32.838 / 32.838 Amiodarone / D5w 360 mg In 200 114.652 / 399.727 85.075 / 399.727 16.738 / 16.738 ml @ 0.25 MG/MIN 8.333 mls/hr IV .Q24H VI Rx#:[id number] Heparin Sodium/Dextrose 25,000 247.633 / 547.916 252.367 / 547.916 16.1 / 16.1 units In 500 ml @ 1,150 UNITS/ HR 23 mls/hr IV .[id number] VI Rx #:[id number] Phenylephrine HCl 20 mg In 146.933 / 146.933 0 / 0 Dextrose 5% 500 ml @ 0 MCG/KG/ MIN IV .Q0M VI Rx#:[id number] Thiamine HCl 500 mg In Sodium 110.000 / 165.000 Chloride 0.9% 50 ml @ 210 mls/ hr IV TID [facility] Rx#:[id number] Vancomycin HCl 750 mg In Sodium 265 / 265 Chloride 0.9% 250 ml @ 200 mls /hr IV 1845 ONE Rx#:[id number] dexMEDEtomidine 200 mcg In 50 50.000 / 164.508 80.791 / 164.508 0 / 0 ml @ 0.4 MCG/KG/HR 8.47 mls/hr IV .Q5H55M [facility] Rx#:[id number] Tube Feeding 192 / 192 Tube Irrigant 90 / 90 Output: Urine Amount (Catheter) 1100 / 2476 651 / 2476 [place]/Indwelling 1100 / 2476 651 / 2476 Gastric Drainage 500 / 500 Oral Orogastric 500 / 500 Other: Weight 83.8 kg Weight Measurement Method Built in [facility] Diagnostic Findings Telemetry: Sinus rhythm and sinus bradycardia, 1 episode of atrial fibrillation on December 02, 2021 from around 1342 until 1824 with a heart rate of around 140 bpm. PG Care Time/CCT Total # of Minutes Spent Total Time Spent with Patient: Total time spent is greater than 50% in coordination of care (as documented) at patient's floor/unit and/or counseling patient: Coding Level of Care Code 18422 SUB INP/OBS CARE 3/50MIN Diagnoses Atrial fibrillation with RVR I48.91 Cardiomyopathy I42.9 Left ventricular apical thrombus I51.3 Anticoagulant long-term use Z79.01 Sinus bradycardia R00.1
[2022-12-04] MEDS: POTASSIUM CHLORIDE 20 MEQ/15 ML UDC PO STA ×2 (10:23→12:44)
[2022-12-04 10:32] LABS: HBSAG NON-REACTIVE (NON-REACTIVE); Hepatitis A Antibody IgM NON-REACTIVE (NON-REACTIVE); Hepatitis B Core Antibody IgM NON-REACTIVE (NON-REACTIVE)
--- NOTE | 2022-12-04 11:36 | Hospitalist Progress Note ---
Date of Service December 04, 2022 Assessment & Plan (1) Septic shock: Plan: source -right-sided pneumonia and bacteremia With septicemia-growing Staphylococcus epidermidis in 4/4 bottles resistant to oxacillin but sensitive to Vanco. Could be contaminant but sputum cx also growing Staph Sputum culture now also with Staphylococcus species from PNA Possibility the apical thrombus also could have vegetation Blood pressures are improved, now weaned off vasopressors and weaning off IV hydrocortisone , remains on fludrocortisone for today but then discontinued With acute kidney injury, shock liver, encephalopathy, respiratory failure- multiorgan system failure-- all improving except ARNALDO -Cont IV cefepime/vanco -Follow sputum culture final ID and sensitivities -follow repeat blood cultures on 12/03-NGTD -Appreciate infectious disease consultation -will need a minimum of 2 weeks IV abx-will f/u with ID -follow CBC, CMP (2) Acute renal failure: Plan: severe, with resulting hyperkalemia significant oliguria since admission now improving after giving IV Lasix on 12/03 Creatinine up again to 4.6 Hyperkalemia now resolved after isotonic bicarbonate drip likely due to sepsis-associated ATN, rhabdomyolysis, in the setting of ARB therapy nephrology consulted for assistance if renal function cont to worsen & family desires aggressive care then she may need HD but not needed today Follow BMP in the morning Follow UOP (3) Left ventricular apical thrombus: Plan: large LV thrombus; vegetation cannot be excluded-on antibiotics heparin drip continues and then eventually switch to DOAC x3 months minimum Cardiology consult appreciated-could be due to low flow state given poor EF of 25-30% -Repeat echocardiogram in 2 to 3 days as per my discussion with cardiology to see if EF is improved i.e. Takotsubo's Because cardiomyopathy could be secondary to NSTEMI given elevated troponin, cardiology recommends starting aspirin low-dose daily (4) Acute metabolic encephalopathy: Plan: numerous causes - sepsis/septic shock, ARNALDO, acute resp failure, etc Remains sedated on ventilator (5) Acute respiratory failure with hypoxia: Plan: multi-organ failure with pneumonia, bacteremia, ARNALDO, etc all to blame appreciate vent management by pulmonary/critical care Following ABG (6) Rhabdomyolysis: Plan: 2nd to fall/laying on ground at home CPK is only mildly elevated - doubt cause of ARNALDO repeat CPK about the same in the 800s (7) Hypocalcemia: Plan: severe 2nd to Ibrance? 2nd to low magnesium? other cause? s/p replacement per ICU protocol likely the major catshovel driver of prolonged QTc seen on EKG follow levels (8) Right lower lobe pneumonia: Plan: son reports he found vomit on his mother at home prior to EMS arrival thus - aspiration pneumonia? MRSA swab negative cont cefepime, vancomycin Follow sputum culture-growing Staphylococcus species (9) Elevated troponin: Plan: cannot rule out ACS/NSTEMI in light of echo findings with reduced EF and wall motion abnormalities vs myocardial demand ischemia remains on heparin drip for apical thrombus Troponin trended downward after peaking at 3389 No ischemic changes on ECG Plan to repeat echocardiogram in 2 to 3 days Start aspirin 81 mg daily (10) History of bilateral breast cancer: Plan: initial dx early with subsequent recurrence and metastatic disease remains on anaztrazole and Ibrance-both on hold for now Follows with Dr. Woodard of Oncology Follows with Palliative Med as outpt-currently on po dialudid about bid prn at home-here on IV dilaudid (11) Regular alcohol consumption: Plan: continue thiamine/folate pt will not admit to exact amount of EtOH she drinks daily watch for symptoms/signs of withdrawal (12) Cardiomyopathy: Plan: NEW, as seen on echo EF <30% etiology? ischemic? Takotsubo's? other? defer management to cardiology (13) Type II diabetes mellitus: Plan: previous high a1c's several years ago now a1c <6% resolved hyperglycemia protocol while in ICU (14) Macrocytic anemia: Plan: likely 2nd to etoh consumption cannot rule out B12/folate/copper deficiencies, etc B12 level low at 259 1 year ago and folate level quite low at 2 last year as well serial CBC Continue folic acid 1 mg IV once daily Eventually will recheck B12 levels (15) Shock liver: Plan: LFT pattern c/w acute liver injury/shock liver-now improving serial LFTs, INR Blood pressures are now improved, expect this to resolve (16) Hypomagnesemia: Plan: replaced resolved likely contributed to prolonged QTc (17) Prolonged QT interval: Plan: 2nd to low mag, low calcium telemetry monitoring replace electrolytes Plan DVT prophylaxis-Heparin drip Disposition-continued stay in ICU, improving Admission and Anticipated Discharge Date Admission Date: December 01, 2022 Subjective Pt extubated this AM, was drowsy but able to wake up and answer questions for me. Family members at the bedside. Pt reports feeling tired. Son reports she usually takes the po dilaudid about two times a day. Pt was evasive when asked about how much EtOH use she has daily. Tele with NSR, no further Afib Review of Systems Review of Systems: All systems reviewed & are unremarkable except as noted in HPI & below Physical Exam Constitutional: WD/WN, vitals as above Eyes: + anicteric sclerae Neck: trachea midline, no thyromegaly Respiratory: normal respiratory effort, lungs clear to auscultation Cardiovascular: RRR, no murmur, no edema Gastrointestinal (Abdomen): normal bowel sounds, soft, nontender, no hepatosplenomegaly Musculoskeletal: Extremities: extremities normal to inspection; no cyanosis and no clubbing Skin: no rashes, warm and dry Neurologic: moves all extremities and awake Motor/Sensory: + fasciculations (some coarse fasiculations, or myoclonic jerks) Psychiatric: Orientation: alert, oriented to person, oriented to place and cooperative Lymphatic: no lymphedema Results & Data Results & Data ([facility]) Vital Signs (Past 12 Hours) Vital Signs Temp Pulse Resp BP Pulse Ox O2 Del Method FiO2 12/04/22 07:05 50 L 8 L 92 35 12/04/22 06:00 36.7 C 50 L 13 94 12/04/22 06:00 100/69 12/04/22 05:00 36.5 C 51 L 12 105/67 94 Mechanical Vent 45 12/04/22 05:00 105/67 12/04/22 04:01 36.4 C L 50 L 12 96 12/04/22 04:00 36.4 C L 50 L 12 108/70 96 Mechanical Vent 45 12/04/22 03:01 36.3 C L 49 L 19 98/60 L 95 12/04/22 03:00 36.3 C L 49 L 10 L 94 12/04/22 05:28 49 L 17 95 40 12/04/22 04:00 49 L 111/61 12/04/22 04:00 40 12/04/22 02:01 36.3 C L 49 L 12 111/61 94 40 12/04/22 02:00 36.3 C L 49 L 14 95 12/04/22 01:00 36.3 C L 49 L 14 96/63 L 95 Mechanical Vent 40 12/04/22 00:01 36.4 C L 50 L 9 L 124/63 94 40 12/04/22 00:00 36.4 C L 50 L 12 95 40 12/04/22 00:00 50 L 98/53 L 12/04/22 00:00 40 12/04/22 00:00 49 L Laboratory Results 12/04/22 12/04/22 12/04/22 Range/Units 21:21 19:58 13:35 WBC (4.8-10.8) K/ul RBC (3.93-5.22) M/uL Hgb (12.0-16.0) g/dl Hct (34.1-44.9) % MCV (80.0-100.0) fL MCH (25.0-34.0) pg MCHC (32.0-36.0) g/dL RDW Std Deviation (36.4-46.3) fL RDW Coeff of Cheri (11.5-14.5) % Plt Count (130-400) K/uL MPV (9.4-12.3) fL Immature Gran % (Auto) % Neut % (Auto) % Lymph % (Auto) % [place] % (Auto) % Eos % (Auto) % Baso % (Auto) % Neut # (Auto) (1.4-6.5) K/uL Lymph # (Auto) (1.2-3.4) K/uL [place]land # (Auto) (0.24-0.82) K/uL Eos # (Auto) (0-0.50) K/uL Baso # (Auto) (0-0.2) K/uL Immature Gran # (Auto) (0.00-0.02) K/uL Absolute Nucleated RBC (0-0) K/uL Nucleated RBC % (auto) % RBC Morphology PT (9.0-12.0) Seconds INR (0.9-1.1) APTT (21.0-31.0) Seconds PTT Ratio Sample Site POC pH (7.35-7.45) POC pCO2 (35-46) mmHg POC pO2 (80-95) mmHg POC HCO3 (19-24) martinez/L POC Total CO2 (24-31) mmol/L POC Base Excess (-9-1.8) martinez/L POC ABG O2 Sat (90-95) % Rafal Test O2 Delivery Device POC O2 Rate POC FiO2 % Tidal Volume PEEP Sodium (136-145) mmol/L Potassium (3.5-5.1) mmol/L Chloride (98-107) mmol/L Carbon Dioxide (21-32) mmol/L Anion Gap (3-11) BUN (6-23) mg/dl Creatinine (0.6-1.2) mg/dl Est Cr Clr Drug Dosing ml/min Est GFR ( Amer) ml/min Est GFR (Non-Af Amer) ml/min BUN/Creatinine Ratio (10-20) Glucose (70-99(Fasting)) mg/dl POC Glucose 121 H 132 H (70-99) mg/dl Calcium (8.5-10.1) mg/dl Ionized Calcium (1.12-1.32) mmol/L Phosphorus (2.5-4.9) mg/dl Magnesium (1.7-2.4) mg/dl Total Bilirubin (0.2-1.0) mg/dl Direct Bilirubin (0-0.2) mg/dl AST (13-39) U/L ALT (7-52) U/L Alkaline Phosphatase (34-104) U/L Total Protein (6.0-8.3) gm/dl Albumin (3.4-5.0) gm/dl Globulin (2.5-4.0) gm/dl Albumin/Globulin Ratio (0.9-2) Procalcitonin (0-0.5) ng/ml Vancomycin Trough 16.1 (10-20) mcg/ml Random Vancomycin (10-20) mcg/ml Hepatitis A IgM Ab (NON-REACTIVE) Hep Bs Antigen (NON-REACTIVE) Hep Bs Ag Confirmation Hep B Core IgM Ab (NON-REACTIVE) Hepatitis C Ab (EIA) (NON-REACTIVE) Hep C Ab Signal/Cutoff (<1.00) 12/04/22 12/04/22 12/04/22 Range/Units 05:16 04:55 04:55 WBC (4.8-10.8) K/ul RBC (3.93-5.22) M/uL Hgb (12.0-16.0) g/dl Hct (34.1-44.9) % MCV (80.0-100.0) fL MCH (25.0-34.0) pg MCHC (32.0-36.0) g/dL RDW Std Deviation (36.4-46.3) fL RDW Coeff of Cheri (11.5-14.5) % Plt Count (130-400) K/uL MPV (9.4-12.3) fL Immature Gran % (Auto) % Neut % (Auto) % Lymph % (Auto) % [place] % (Auto) % Eos % (Auto) % Baso % (Auto) % Neut # (Auto) (1.4-6.5) K/uL Lymph # (Auto) (1.2-3.4) K/uL [place]land # (Auto) (0.24-0.82) K/uL Eos # (Auto) (0-0.50) K/uL Baso # (Auto) (0-0.2) K/uL Immature Gran # (Auto) (0.00-0.02) K/uL Absolute Nucleated RBC (0-0) K/uL Nucleated RBC % (auto) % RBC Morphology PT (9.0-12.0) Seconds INR (0.9-1.1) APTT (21.0-31.0) Seconds PTT Ratio Sample Site Art Line POC pH 7.47 H (7.35-7.45) POC pCO2 39 (35-46) mmHg POC pO2 80 (80-95) mmHg POC HCO3 28 H (19-24) martinez/L POC Total CO2 30 (24-31) mmol/L POC Base Excess 5.0 H (-9-1.8) martinez/L POC ABG O2 Sat 96.0 H (90-95) % Rafal Test NA O2 Delivery Device Ventilator POC O2 Rate 12 POC FiO2 40 % Tidal Volume 350 PEEP 5 Sodium (136-145) mmol/L Potassium (3.5-5.1) mmol/L Chloride (98-107) mmol/L Carbon Dioxide (21-32) mmol/L Anion Gap (3-11) BUN (6-23) mg/dl Creatinine (0.6-1.2) mg/dl Est Cr Clr Drug Dosing ml/min Est GFR ( Amer) ml/min Est GFR (Non-Af Amer) ml/min BUN/Creatinine Ratio (10-20) Glucose (70-99(Fasting)) mg/dl POC Glucose (70-99) mg/dl Calcium (8.5-10.1) mg/dl Ionized Calcium 0.87 L (1.12-1.32) mmol/L Phosphorus (2.5-4.9) mg/dl Magnesium (1.7-2.4) mg/dl Total Bilirubin (0.2-1.0) mg/dl Direct Bilirubin (0-0.2) mg/dl AST (13-39) U/L ALT (7-52) U/L Alkaline Phosphatase (34-104) U/L Total Protein (6.0-8.3) gm/dl Albumin (3.4-5.0) gm/dl Globulin (2.5-4.0) gm/dl Albumin/Globulin Ratio (0.9-2) Procalcitonin (0-0.5) ng/ml Vancomycin Trough (10-20) mcg/ml Random Vancomycin 23.0 H (10-20) mcg/ml Hepatitis A IgM Ab (NON-REACTIVE) Hep Bs Antigen (NON-REACTIVE) Hep Bs Ag Confirmation Hep B Core IgM Ab (NON-REACTIVE) Hepatitis C Ab (EIA) (NON-REACTIVE) Hep C Ab Signal/Cutoff (<1.00) 12/04/22 12/04/22 12/04/22 Range/Units 04:55 04:55 04:55 WBC (4.8-10.8) K/ul RBC (3.93-5.22) M/uL Hgb (12.0-16.0) g/dl Hct (34.1-44.9) % MCV (80.0-100.0) fL MCH (25.0-34.0) pg MCHC (32.0-36.0) g/dL RDW Std Deviation (36.4-46.3) fL RDW Coeff of Cheri (11.5-14.5) % Plt Count (130-400) K/uL MPV (9.4-12.3) fL Immature Gran % (Auto) % Neut % (Auto) % Lymph % (Auto) % [place] % (Auto) % Eos % (Auto) % Baso % (Auto) % Neut # (Auto) (1.4-6.5) K/uL Lymph # (Auto) (1.2-3.4) K/uL Highland # (Auto) (0.24-0.82) K/uL Eos # (Auto) (0-0.50) K/uL Baso # (Auto) (0-0.2) K/uL Immature Gran # (Auto) (0.00-0.02) K/uL Absolute Nucleated RBC (0-0) K/uL Nucleated RBC % (auto) % RBC Morphology PT 11.9 (9.0-12.0) Seconds INR 1.1 (0.9-1.1) APTT 61.5 H* (21.0-31.0) Seconds PTT Ratio 2.2 Sample Site POC pH (7.35-7.45) POC pCO2 (35-46) mmHg POC pO2 (80-95) mmHg POC HCO3 (19-24) martinez/L POC Total CO2 (24-31) mmol/L POC Base Excess (-9-1.8) martinez/L POC ABG O2 Sat (90-95) % Rafal Test O2 Delivery Device POC O2 Rate POC FiO2 % Tidal Volume PEEP Sodium 137 (136-145) mmol/L Potassium 3.3 L (3.5-5.1) mmol/L Chloride 96 L (98-107) mmol/L Carbon Dioxide 27 (21-32) mmol/L Anion Gap 14 H (3-11) BUN 61 H (6-23) mg/dl Creatinine 4.68 H* (0.6-1.2) mg/dl Est Cr Clr Drug Dosing 11.5 ml/min Est GFR ( Amer) 10.2 ml/min Est GFR (Non-Af Amer) 8.8 ml/min BUN/Creatinine Ratio 13.0 (10-20) Glucose 176 H (70-99(Fasting)) mg/dl POC Glucose (70-99) mg/dl Calcium 7.0 L (8.5-10.1) mg/dl Ionized Calcium (1.12-1.32) mmol/L Phosphorus 5.6 H (2.5-4.9) mg/dl Magnesium 2.4 (1.7-2.4) mg/dl Total Bilirubin 0.5 (0.2-1.0) mg/dl Direct Bilirubin 0.2 (0-0.2) mg/dl AST 591 H (13-39) U/L ALT 679 H (7-52) U/L Alkaline Phosphatase 115 H (34-104) U/L Total Protein 5.6 L (6.0-8.3) gm/dl Albumin 2.9 L (3.4-5.0) gm/dl Globulin 2.7 (2.5-4.0) gm/dl Albumin/Globulin Ratio 1.1 (0.9-2) Procalcitonin 3.73 H (0-0.5) ng/ml Vancomycin Trough (10-20) mcg/ml Random Vancomycin (10-20) mcg/ml Hepatitis A IgM Ab (NON-REACTIVE) Hep Bs Antigen (NON-REACTIVE) Hep Bs Ag Confirmation Hep B Core IgM Ab (NON-REACTIVE) Hepatitis C Ab (EIA) (NON-REACTIVE) Hep C Ab Signal/Cutoff (<1.00) 12/04/22 12/03/22 Range/Units 04:55 13:52 WBC 7.08 (4.8-10.8) K/ul RBC 2.34 L (3.93-5.22) M/uL Hgb 8.9 L (12.0-16.0) g/dl Hct 25.1 L (34.1-44.9) % MCV 107.3 H (80.0-100.0) fL MCH 38.0 H (25.0-34.0) pg MCHC 35.5 (32.0-36.0) g/dL RDW Std Deviation 54.7 H (36.4-46.3) fL RDW Coeff of Cheri 14.3 (11.5-14.5) % Plt Count 134 (130-400) K/uL MPV 11.7 (9.4-12.3) fL Immature Gran % (Auto) 2.1 % Neut % (Auto) 92.7 % Lymph % (Auto) 3.4 % [place]land % (Auto) 1.8 % Eos % (Auto) 0.0 % Baso % (Auto) 0.0 % Neut # (Auto) 6.56 H (1.4-6.5) K/uL Lymph # (Auto) 0.24 L (1.2-3.4) K/uL [place]land # (Auto) 0.13 L (0.24-0.82) K/uL Eos # (Auto) 0.00 (0-0.50) K/uL Baso # (Auto) 0.00 (0-0.2) K/uL Immature Gran # (Auto) 0.15 H (0.00-0.02) K/uL Absolute Nucleated RBC 0.09 H (0-0) K/uL Nucleated RBC % (auto) 1.3 % RBC Morphology Unremarkable PT (9.0-12.0) Seconds INR (0.9-1.1) APTT (21.0-31.0) Seconds PTT Ratio Sample Site POC pH (7.35-7.45) POC pCO2 (35-46) mmHg POC pO2 (80-95) mmHg POC HCO3 (19-24) martinez/L POC Total CO2 (24-31) mmol/L POC Base Excess (-9-1.8) martinez/L POC ABG O2 Sat (90-95) % Rafal Test O2 Delivery Device POC O2 Rate POC FiO2 % Tidal Volume PEEP Sodium (136-145) mmol/L Potassium (3.5-5.1) mmol/L Chloride (98-107) mmol/L Carbon Dioxide (21-32) mmol/L Anion Gap (3-11) BUN (6-23) mg/dl Creatinine (0.6-1.2) mg/dl Est Cr Clr Drug Dosing ml/min Est GFR ( Amer) ml/min Est GFR (Non-Af Amer) ml/min BUN/Creatinine Ratio (10-20) Glucose (70-99(Fasting)) mg/dl POC Glucose (70-99) mg/dl Calcium (8.5-10.1) mg/dl Ionized Calcium (1.12-1.32) mmol/L Phosphorus (2.5-4.9) mg/dl Magnesium (1.7-2.4) mg/dl Total Bilirubin (0.2-1.0) mg/dl Direct Bilirubin (0-0.2) mg/dl AST (13-39) U/L ALT (7-52) U/L Alkaline Phosphatase (34-104) U/L Total Protein (6.0-8.3) gm/dl Albumin (3.4-5.0) gm/dl Globulin (2.5-4.0) gm/dl Albumin/Globulin Ratio (0.9-2) Procalcitonin (0-0.5) ng/ml Vancomycin Trough (10-20) mcg/ml Random Vancomycin (10-20) mcg/ml Hepatitis A IgM Ab NON-REACTIVE (NON-REACTIVE) Hep Bs Antigen NON-REACTIVE (NON-REACTIVE) Hep Bs Ag Confirmation TNP Hep B Core IgM Ab NON-REACTIVE (NON-REACTIVE) Hepatitis C Ab (EIA) NON-REACTIVE (NON-REACTIVE) Hep C Ab Signal/Cutoff 0.07 (<1.00) Diagnostic Findings Chest X-Ray 12/04/22 05:30 XR chest 1V portable HISTORY: Respiratory failure. while intubated- evaluate lines and lung john COMPARISON: Chest 12/03/2022. FINDINGS: Endotracheal tube and nasogastric tube remain unchanged in position. A coaxial remains enlarged. Bilateral pleural effusions and bibasilar airspace opacities persist. No evidence for pulmonary edema. IMPRESSION: 1. Satisfactory support line placement. 2. No change in the bibasilar airspace opacities and pleural effusions. ACT 112: Negative or not required by law. Electronically signed by: Freddy New M.D. 12/04/2022 8:59 AM PG Care Time/CCT Total # of Minutes Spent Total Time Spent with Patient: Total time spent is greater than 50% in coordination of care (as documented) at patient's floor/unit and/or counseling patient: Coding Level of Care Code 91642 SUB INP/OBS CARE 3/50MIN Diagnoses Septic shock A41.9; R65.21 Acute renal failure N17.9 Acute renal failure type: unspecified Left ventricular apical thrombus I51.3 Acute metabolic encephalopathy G93.41 Acute respiratory failure with hypoxia J96.01 Rhabdomyolysis M62.82 Rhabdomyolysis type: non-traumatic Hypocalcemia E83.51 Right lower lobe pneumonia J18.9 Pneumonia type: due to unspecified organism Elevated troponin R77.8 History of bilateral breast cancer Z85.3 Regular alcohol consumption Z78.9 Cardiomyopathy I42.9 Type II diabetes mellitus E11.9 Macrocytic anemia D53.9 Shock liver K72.00 Hypomagnesemia E83.42 Prolonged QT interval R94.31 (1) Acute renal failure Acute renal failure type: unspecified Qualified Code(s): N17.9 - Acute kidney failure, unspecified (2) Rhabdomyolysis Rhabdomyolysis type: non-traumatic Qualified Code(s): M62.82 - Rhabdomyolysis (3) Right lower lobe pneumonia Pneumonia type: due to unspecified organism Qualified Code(s): J18.9 - Pneumonia, unspecified organism
[2022-12-04] MEDS: CEFEPIME 1,000 MG in SYRINGE 0 ML IV SCH (12:19)
--- NOTE | 2022-12-04 12:20 | Billing Data ---
Date of Service December 04, 2022 Coding Level of Care Code 20281 SUB INP/OBS CARE MIN
[2022-12-04] MEDS: PANTOprazole 40 MG in SYRINGE 0 ML IV SCH (12:21)
--- NOTE | 2022-12-04 12:32 | Pharmacy Report ---
Pharmacy Vanc AUC Short Note - Date of Service December 04, 2022 - Assessment & Plan Assessment * 72 year old F receiving VANCOMYCIN + CEFEPIME for treatment of CoN staph bacteremia, possible infected LV thrombus, and PNA. Pharmacy is consulted to dose VANCOMYCIN. * Pertinent microbiologic data includes: negative MRSA Nasal Swab, 2 of 2 sets BLCXs from 12/01 growing CoNS (methicillin resistant), repeat BLCXs from 12/03 no growth to date, sputum cx growing staph species (awaiting further ID and sensitivities) * Day # 3 of antimicrobial therapy. * SCr remains elevated, may have plateaued, UOP increasing following Lasix yesterday Plan Vancomycin * AUC/JEANNIE is the preferred PK/PD target for vancomycin - however given patient's severe ARNALDO and non-oligouric failure, she does not qualify for this dosing methodology. Rather will dose per random levels. * 1500mg load given 1/9 PM * Random level with AM labs on 12/03 17.7 * 2nd random level on 12/03 ~12hrs later was 13.6 and as a result 750mg IV vanco given. * Random level with this AM's labs is 23. * I anticipate her level to be less than 20 and likely this evening. Will check random level @2100. If level is < 20 will give 750mg IV vanco. Pharmacy will continue to follow and will adjust dose/frequency as necessary. Thank you.
[2022-12-04] MEDS ORDERED: [UNRECOGNIZED DRUG - REMARK] ONE (21:00)
[2022-12-04] MEDS ORDERED: VANCOMYCIN HCL 750 MG in SODIUM CHLORIDE 0.9% 250 ML IV ONE (22:45)
[2022-12-05] MEDS: HYDROmorphone INJ 1 MG/ML SYRINGE IV SCH ×2 (00:30→04:42)
[2022-12-05] MEDS: CEFEPIME 1,000 MG in SYRINGE 0 ML IV SCH (00:31)
[2022-12-05] MEDS: TUBE FEEDING WATER FLUSH OG SCH ×3 (00:32→07:32)
[2022-12-05] MEDS: HEPARIN SODIUM/DEXTROSE 25,000 UNITS/500 ML BAG IV SCH (04:42)
[2022-12-05] MEDS: AMIODARONE / D5W 360 MG/200 ML BAG IV SCH ×2 (06:08→14:31)
[2022-12-05 06:12] LABS: Hemoglobin 8.8 g/dl (12.0-16.0); Mean Corpuscular Hemoglobin 38.3 pg (25.0-34.0); Mean Corpuscular Hgb Conc 35.2 g/dL (32.0-36.0); Mean Corpuscular Volume 108.7 fL (80.0-100.0); Mean Platelet Volume 11.6 fL (9.4-12.3); Nucleated RBC # (auto) 0.03 K/uL (0-0); Nucleated RBC % (auto) 0.4 %; Platelet Count 136 K/uL (130-400); RDW Coefficient of Variation 14.5 % (11.5-14.5); RDW Standard Deviation 56.7 fL (36.4-46.3); White Blood Count 7.15 K/ul (4.8-10.8)
[2022-12-05 06:33] LABS: BUN Creatinine Ratio 13.9 (10-20); Bilirubin,Total 0.6 mg/dl (0.2-1.0); Calcium 7.2 mg/dl (8.5-10.1); Creatinine Clr Calc Pharmacy 13.3 ml/min; Est GFR (African American) 12.3 ml/min; Est GFR (Non-African American) 10.6 ml/min; Magnesium 2.2 mg/dl (1.7-2.4); Phosphorus 5.7 mg/dl (2.5-4.9); Potassium 3.1 mmol/L (3.5-5.1)
[2022-12-05 06:44] LABS: Immature Granulocytes # (auto) 0.15 K/uL (0.00-0.02); Immature Granulocytes % (auto) 2.1 %; Lymphocytes # (auto) 0.19 K/uL (1.2-3.4); Lymphocytes % (auto) 2.7 %; Monocytes # (auto) 0.16 K/uL (0.24-0.82); Monocytes % (auto) 2.2 %; Neutrophils # (auto) 6.65 K/uL (1.4-6.5); Polychromasia 1+
[2022-12-05 06:52] LABS: Partial Thromboplastin Ratio 1.7
[2022-12-05 07:03] LABS: Partial Thromboplastin Time 47.1 Seconds (21.0-31.0)
[2022-12-05] MEDS: THIAMINE HCL 200 MG in SODIUM CHLORIDE 0.9% 50 ML IV SCH (07:15)
--- NOTE | 2022-12-05 07:39 | Critical Care Progress Note ---
Date of Service December 05, 2022 Assessment & Plan (1) Multi-organ system dysfunction: Plan: Reason Critically Ill: 72 yo F presents with encephalopathy, hypoxia, hypotension, shock.Immediately intubated on arrival, her hyperkalemia resolved. With acute renal failure secondary to undifferentiated shock. Neuro -Encephalopathy- Metabolic, Sedation for mechanical ventilation, ETOH misuse CAM ICU: Negative Sedation: None. Extubated 12/04. Analgesia: Dilaudid, will ween to q12h - CT head negative for acute process. CT cervical spine without acute fx/subluxation. - Acidosis improved s/p bicarb drip. - No seizure activity reported -versed given on arrival to ICU secondary to patient clenched fists, rigidity to legs, and biting at ETT- consider EEG if encephalopathy does not clear - Regular alcohol use at home ~1 bottle per day of liquor- follow for withdrawal- cont. high dose thiamine and folate Cardiac -Septic Shock- requiring vasopressor support, elevated HScTNI, prolonged QT, ventricular ?thrombus/vegetation, afib Patient arrived with shock- multifactorial to include hypovolemia and sepsis - evidence of multi organ dysfunction- heart, shock liver, encephalopathy, pulmonary hypoxia - lactate now wnl. - LFTs improving - d/c'd (12/03/21) vasopressors - elevated HScTNI in the setting of ARF- without STEMI- likely demand - trops peaked - echo- reduced EF 25-30% with significant wall abnormalities. Presence of a ventricular thrombus or possible vegetation. - will repeat echo today - consider ALIDA to confirm vegetation, however, may not change course of treatment at this point - cardiology on board- cont. short term heparin gtt or consider DOAC if improved prognosis - Holding QT prolongation drugs, most recent 579. Will repeat EKG. - Random cortisol 19- stress dosing steroids- d/c Florinef. Cont. hydrocortisone taper, 50mg q12h x2 days then q24 x2 days. - developed afib and started on low dose amiodarone drip. Currently in NSR. Will need to consider QT prolongation and hepatotoxicity on this medication. Can switch to 200mg orally when able to take po meds. Respiratory -Hypercarbic/hypoxic respiratory failure requiring intubation, emphysema, pneumonia - Extubated 12/04. Now on NC with oxygen goal 90. - CTA chest- negative for PE - Opacity right - likely aspiration- cont. abx as below - Pulmonary toilet, TAMI neb GI - - speech consulted- remains NPO with sips of water, will reevaluate today - GI ppx: protonix- can d/c once eating RENAL/LYTES -ARF on CKD, Hyperkalemia, Hypocalcemia, Hypomagnesemia, Metabolic and Respiratory Acidosis, AGAP Acidosis - Likely pre-renal/ATN in setting of hypotension - Electrolytes replacement protocol - Hyperkalemia and hypomagnesemia resolved - Hypocalcemia, improving- give 2g calcium gluconate - AGAP and bicarb improved, now mildly alkalotic. Bicarb drip d/c'd. - Negative UA - CPK peaked at 850 - Lasix 80mg IV x1 since off vasopressor support. -1L past 24 hours. Appears to be producing urine and creatinine starting to improve, cont. to monitor. - nephro following- will consider trial of dialysis if necessary, monitor for now -martinez in place ENDO -DMII - ICU hyperglycemia protocol HEME -Metastatic breast cancer - consider restarting home cancer medications following extubation - home narcotics for her metastatic pain disease on hold for now- pain control with Dilaudid ID -Pneumonia, gram positive bacteremia - cont. cefepime and vanc - aspiration vs. bacterial pneumonia -procal improving -sputum cx grew staph aureus -MRSA nares neg - blood cx growing gram grew coag neg staph (not lugdunensis) -methicillin resistant staph epi on PCR -surveillance blood cx (12/03) no growth thus far -there is concern for infective endocarditis given possible vegetation -ID following Overall prognosis unclear, however, patient is showing signs of hemodynamic stability. No longer on vasopressor support. Extubated 12/04. Continues to produce urine and creatinine improving. Palliative on board. Will continue discussions regarding code status and goals of care. Family wishes to pursue aggressive treatment for now. PT/OT ordered. Encourage OOB. LINES/IV ACCESS - -Martinez, PIVs DVT PROPHYLAXIS - -Heparin gtt Thank you for allowing us to participate in the care of this patient.Please refer to my attending physician's documentation for any further recommendations. Patient is hemodynamically stable and okay for downgrade from ICU. (2) Acute metabolic encephalopathy: (3) Acute respiratory failure with hypoxia: (4) Right lower lobe pneumonia: (5) Shock liver: (6) Septic shock: (7) Bacteremia: (8) Cardiomyopathy: (9) Atrial fibrillation with RVR: (10) Left ventricular apical thrombus: (11) Prolonged QT interval: (12) Cancer related pain: (13) Acute renal failure: (14) Lactic acidosis: (15) Elevated troponin: (16) Regular alcohol consumption: (17) History of bilateral breast cancer: Admission and Anticipated Discharge Date Admission Date: December 01, 2022 Supervising Physician Co-Signing Physician Notes Patient seen and examined. EMR reviewed. Discussed on multidisciplinary rounds. Discussed with family practice resident and agree with assessment plan as noted. The patient she continues to show slow and steady improvement. Her mental status is improving. We will decrease her Dilaudid if she is not having significant pain and this may be contributing to some of her encephalopathy. Her kidney function remained stable to slightly improved but her urine output is picked up significantly. We will replete electrolytes. Discussed with cardiology and nephrology. Plan to repeat limited echocardiogram today to evaluate EF and thrombus. Antibiotics are being directed per ID. Her central lines been removed and she has peripheral access. Will obtain formal speech therapy evaluation and try to transition to oral medications and advance diet if she passes her swallow evaluation. PT OT and out of bed to chair as tolerated. Patient is stable and acceptable to transfer to the floor. Hospitalist was notified. Critical care services will sign off. Feel free to contact us if we can be of additional assistance. Subjective Patient seen at bedside this morning. Alert and responding appropriately to questions/commands. Says she does not remember her hospital visit thus nor does she recall speaking with family. Denies chest pain, sob, headache, abd pain, N/V. Review of Systems Review of Systems: All systems reviewed & are unremarkable except as noted in HPI & below Physical Exam Physical Exam: General: alert, in no acute distress, pleasant. Vitals as above. HEENT: PERRLA, mucous membranes mildly dry Chest: equal rise and fall of the chest, ventilation and oxygenation improved Cardiac: Regular rate and rhythm, +S3, skin cool dry, cap refill <3 seconds, peripheral pulses diminished, no JVD, trace distal lower extremity edema Resp: coarse bibasilar rales GI: NABS x 4 quadrants, soft, no rebound tenderness or guarding : Martinez to gravity draining small amount of urine Neuro: No focal deficits. Oriented to self and time but not place (thought she was at [facility]) Results & Data Results & Data ([facility]) Vital Signs (Past 12 Hours) Vital Signs Temp Pulse Resp BP Pulse Ox O2 Del Method O2 Flow Rate 12/05/22 06:00 36.4 C L 69 16 140/80 93 2 12/05/22 05:00 36.3 C L 71 21 134/87 91 Nasal Cannula 2 12/05/22 04:00 36.3 C L 75 16 142/85 H 96 Nasal Cannula 3 12/05/22 03:00 36.4 C L 69 22 144/89 H 94 Nasal Cannula 3 12/05/22 02:00 136/68 3 12/05/22 04:00 71 12/05/22 02:00 36.5 C 73 15 138/68 94 Nasal Cannula 3 12/05/22 01:00 36.5 C 73 19 146/92 H 94 Nasal Cannula 3 12/05/22 00:00 36.6 C 74 22 150/88 H 95 Nasal Cannula 3 12/04/22 23:00 36.6 C 72 16 142/85 H 95 Nasal Cannula 3 12/04/22 22:00 36.6 C 75 17 139/88 92 4 12/04/22 21:00 36.6 C 72 14 138/80 95 12/04/22 20:01 77 18 164/90 H 93 4 12/04/22 20:00 79 18 93 4 12/04/22 20:00 78 12/04/22 20:00 Nasal Cannula 4 Laboratory Results 12/05/22 12/05/22 12/05/22 Range/Units 06:09 05:32 05:32 WBC (4.8-10.8) K/ul RBC (3.93-5.22) M/uL Hgb (12.0-16.0) g/dl Hct (34.1-44.9) % MCV (80.0-100.0) fL MCH (25.0-34.0) pg MCHC (32.0-36.0) g/dL RDW Std Deviation (36.4-46.3) fL RDW Coeff of Cheri (11.5-14.5) % Plt Count (130-400) K/uL MPV (9.4-12.3) fL Immature Gran % (Auto) % Neut % (Auto) % Lymph % (Auto) % [place] % (Auto) % Eos % (Auto) % Baso % (Auto) % Neut # (Auto) (1.4-6.5) K/uL Lymph # (Auto) (1.2-3.4) K/uL [place] # (Auto) (0.24-0.82) K/uL Eos # (Auto) (0-0.50) K/uL Baso # (Auto) (0-0.2) K/uL Immature Gran # (Auto) (0.00-0.02) K/uL Absolute Nucleated RBC (0-0) K/uL Nucleated RBC % (auto) % Polychromasia APTT 47.1 H* (21.0-31.0) Seconds PTT Ratio 1.7 Sodium 141 (136-145) mmol/L Potassium 3.1 L (3.5-5.1) mmol/L Chloride 97 L (98-107) mmol/L Carbon Dioxide 31 (21-32) mmol/L Anion Gap 13 H (3-11) BUN 56 H (6-23) mg/dl Creatinine 4.03 H D (0.6-1.2) mg/dl Est Cr Clr Drug Dosing 13.3 ml/min Est GFR ( Amer) 12.3 ml/min Est GFR (Non-Af Amer) 10.6 ml/min BUN/Creatinine Ratio 13.9 (10-20) Glucose 114 H (70-99(Fasting)) mg/dl POC Glucose (70-99) mg/dl Calcium 7.2 L (8.5-10.1) mg/dl Ionized Calcium 0.88 L (1.12-1.32) mmol/L Phosphorus 5.7 H (2.5-4.9) mg/dl Magnesium 2.2 (1.7-2.4) mg/dl Total Bilirubin 0.6 (0.2-1.0) mg/dl AST 250 H (13-39) U/L ALT 477 H (7-52) U/L Alkaline Phosphatase 109 H (34-104) U/L Total Protein 6.0 (6.0-8.3) gm/dl Albumin 3.0 L (3.4-5.0) gm/dl Globulin 3.0 (2.5-4.0) gm/dl Albumin/Globulin Ratio 1.0 (0.9-2) Vancomycin Trough (10-20) mcg/ml Hepatitis A IgM Ab (NON-REACTIVE) Hep Bs Antigen (NON-REACTIVE) Hep Bs Ag Confirmation Hep B Core IgM Ab (NON-REACTIVE) Hepatitis C Ab (EIA) (NON-REACTIVE) Hep C Ab Signal/Cutoff (<1.00) 12/05/22 12/04/22 12/04/22 Range/Units 05:32 21:21 19:58 WBC 7.15 (4.8-10.8) K/ul RBC 2.30 L (3.93-5.22) M/uL Hgb 8.8 L (12.0-16.0) g/dl Hct 25.0 L (34.1-44.9) % MCV 108.7 H (80.0-100.0) fL MCH 38.3 H (25.0-34.0) pg MCHC 35.2 (32.0-36.0) g/dL RDW Std Deviation 56.7 H (36.4-46.3) fL RDW Coeff of Cheri 14.5 (11.5-14.5) % Plt Count 136 (130-400) K/uL MPV 11.6 (9.4-12.3) fL Immature Gran % (Auto) 2.1 % Neut % (Auto) 93.0 % Lymph % (Auto) 2.7 % [place] % (Auto) 2.2 % Eos % (Auto) 0.0 % Baso % (Auto) 0.0 % Neut # (Auto) 6.65 H (1.4-6.5) K/uL Lymph # (Auto) 0.19 L (1.2-3.4) K/uL [place] # (Auto) 0.16 L (0.24-0.82) K/uL Eos # (Auto) 0.00 (0-0.50) K/uL Baso # (Auto) 0.00 (0-0.2) K/uL Immature Gran # (Auto) 0.15 H (0.00-0.02) K/uL Absolute Nucleated RBC 0.03 H (0-0) K/uL Nucleated RBC % (auto) 0.4 % Polychromasia 1+ APTT (21.0-31.0) Seconds PTT Ratio Sodium (136-145) mmol/L Potassium (3.5-5.1) mmol/L Chloride (98-107) mmol/L Carbon Dioxide (21-32) mmol/L Anion Gap (3-11) BUN (6-23) mg/dl Creatinine (0.6-1.2) mg/dl Est Cr Clr Drug Dosing ml/min Est GFR ( Amer) ml/min Est GFR (Non-Af Amer) ml/min BUN/Creatinine Ratio (10-20) Glucose (70-99(Fasting)) mg/dl POC Glucose 121 H (70-99) mg/dl Calcium (8.5-10.1) mg/dl Ionized Calcium (1.12-1.32) mmol/L Phosphorus (2.5-4.9) mg/dl Magnesium (1.7-2.4) mg/dl Total Bilirubin (0.2-1.0) mg/dl AST (13-39) U/L ALT (7-52) U/L Alkaline Phosphatase (34-104) U/L Total Protein (6.0-8.3) gm/dl Albumin (3.4-5.0) gm/dl Globulin (2.5-4.0) gm/dl Albumin/Globulin Ratio (0.9-2) Vancomycin Trough 16.1 (10-20) mcg/ml Hepatitis A IgM Ab (NON-REACTIVE) Hep Bs Antigen (NON-REACTIVE) Hep Bs Ag Confirmation Hep B Core IgM Ab (NON-REACTIVE) Hepatitis C Ab (EIA) (NON-REACTIVE) Hep C Ab Signal/Cutoff (<1.00) 12/04/22 12/03/22 Range/Units 13:35 13:52 WBC (4.8-10.8) K/ul RBC (3.93-5.22) M/uL Hgb (12.0-16.0) g/dl Hct (34.1-44.9) % MCV (80.0-100.0) fL MCH (25.0-34.0) pg MCHC (32.0-36.0) g/dL RDW Std Deviation (36.4-46.3) fL RDW Coeff of Cheri (11.5-14.5) % Plt Count (130-400) K/uL MPV (9.4-12.3) fL Immature Gran % (Auto) % Neut % (Auto) % Lymph % (Auto) % [place] % (Auto) % Eos % (Auto) % Baso % (Auto) % Neut # (Auto) (1.4-6.5) K/uL Lymph # (Auto) (1.2-3.4) K/uL [place] # (Auto) (0.24-0.82) K/uL Eos # (Auto) (0-0.50) K/uL Baso # (Auto) (0-0.2) K/uL Immature Gran # (Auto) (0.00-0.02) K/uL Absolute Nucleated RBC (0-0) K/uL Nucleated RBC % (auto) % Polychromasia APTT (21.0-31.0) Seconds PTT Ratio Sodium (136-145) mmol/L Potassium (3.5-5.1) mmol/L Chloride (98-107) mmol/L Carbon Dioxide (21-32) mmol/L Anion Gap (3-11) BUN (6-23) mg/dl Creatinine (0.6-1.2) mg/dl Est Cr Clr Drug Dosing ml/min Est GFR ( Amer) ml/min Est GFR (Non-Af Amer) ml/min BUN/Creatinine Ratio (10-20) Glucose (70-99(Fasting)) mg/dl POC Glucose 132 H (70-99) mg/dl Calcium (8.5-10.1) mg/dl Ionized Calcium (1.12-1.32) mmol/L Phosphorus (2.5-4.9) mg/dl Magnesium (1.7-2.4) mg/dl Total Bilirubin (0.2-1.0) mg/dl AST (13-39) U/L ALT (7-52) U/L Alkaline Phosphatase (34-104) U/L Total Protein (6.0-8.3) gm/dl Albumin (3.4-5.0) gm/dl Globulin (2.5-4.0) gm/dl Albumin/Globulin Ratio (0.9-2) Vancomycin Trough (10-20) mcg/ml Hepatitis A IgM Ab NON-REACTIVE (NON-REACTIVE) Hep Bs Antigen NON-REACTIVE (NON-REACTIVE) Hep Bs Ag Confirmation TNP Hep B Core IgM Ab NON-REACTIVE (NON-REACTIVE) Hepatitis C Ab (EIA) NON-REACTIVE (NON-REACTIVE) Hep C Ab Signal/Cutoff 0.07 (<1.00) Resident Activity Tracking Resident Involvement: Resident Care Provided Care Provided: Adult Hospital Medicine (1) Acute renal failure Acute renal failure type: unspecified Qualified Code(s): N17.9 - Acute kidney failure, unspecified (2) Right lower lobe pneumonia Pneumonia type: due to unspecified organism Qualified Code(s): J18.9 - Pneumonia, unspecified organism
--- NOTE | 2022-12-05 07:44 | XRay Report ---
SINGLE VIEW CHEST CLINICAL HISTORY: Respiratory failure. FINDINGS: An AP, portable, upright chest radiograph is compared to study dated 12/04/2022. The examina tion is degraded by portable technique and patient rotation. Endotracheal and enteric tubes have bee n removed. The heart is enlarged. There is pulmonary vascular congestion. There are layering pleural effusions with bibasilar consolidation. No pneumothorax is seen. The skeletal structures are osteopen ic. the bony thorax is grossly intact. IMPRESSION: 1. Endotracheal and enteric tubes have been removed. 2. Cardiomegaly with pulmonary vascular congestion. 3. Small pleural effusions with bibasilar consolidation. ACT 112: Negative or not required by law. Electronically signed by: Ho Roy M.D. 12/05/2022 7:42 AM
--- NOTE | 2022-12-05 08:43 | Nephrology Progress Note ---
Date of Service December 05, 2022 Assessment & Plan (1) Acute renal failure: Plan: * ATN due to pneumonia/septic shock/rhabdomyolysis in the setting of ARB therapy * Now nonoliguric, remains 7 L volume +. Cr improved 4.68-->4.03 last 24 hours * Recommend cautious supplementation of potassium and calcium * No acute indication for HD. Monitor UO, PRP (2) Right lower lobe pneumonia: Plan: * Cefazolin therapy (3) Shock liver: Plan: * Improving (4) Left ventricular apical thrombus: Plan: * On Heparin, Vancomycin, Cefazolin Plan Plan of care reviewed w/ ICU team this am Admission and Anticipated Discharge Date Admission Date: December 01, 2022 Subjective Ms. James was evaluated in the ICU. She appeared comfortable and was breathing easily on O2 at 2 L/min NC. Ms. James voiced no medical concerns Review of Systems Constitutional: no fever Eyes: no problem reported Respiratory: no dyspnea Cardiovascular: no chest pain Gastrointestinal: no abdominal pain Physical Exam Constitutional: + ill appearing Eyes: PERRL, conjunctivae normal, anicteric sclerae Neck: trachea midline, no thyromegaly Cardiovascular: RRR, no murmur, no edema Gastrointestinal (Abdomen): Inspection/Auscultation: abdomen normal to inspection and + hypoactive bowel sounds Neurologic: awake Results & Data ([facility]) Vital Signs (Past 12 Hours) Vital Signs Temp Pulse Resp BP Pulse Ox O2 Del Method O2 Flow Rate 12/05/22 06:00 36.4 C L 69 16 140/80 93 2 12/05/22 05:00 36.3 C L 71 21 134/87 91 Nasal Cannula 2 12/05/22 04:00 36.3 C L 75 16 142/85 H 96 Nasal Cannula 3 12/05/22 03:00 36.4 C L 69 22 144/89 H 94 Nasal Cannula 3 12/05/22 02:00 136/68 3 12/05/22 04:00 71 12/05/22 02:00 36.5 C 73 15 138/68 94 Nasal Cannula 3 12/05/22 01:00 36.5 C 73 19 146/92 H 94 Nasal Cannula 3 12/05/22 00:00 36.6 C 74 22 150/88 H 95 Nasal Cannula 3 12/04/22 23:00 36.6 C 72 16 142/85 H 95 Nasal Cannula 3 12/04/22 22:00 36.6 C 75 17 139/88 92 4 12/04/22 21:00 36.6 C 72 14 138/80 95 Laboratory Results Laboratory Tests 08/26/22 12/02/22 12/03/22 09:01 04:56 04:58 WBC Hgb Hct Plt Count Sodium Potassium Chloride Carbon Dioxide BUN Creatinine 1.25 H Calcium AST 1173 H ALT 984 H Albumin 12/04/22 12/05/22 12/05/22 04:55 05:32 05:32 WBC 7.15 Hgb 8.8 L Hct 25.0 L Plt Count 136 Sodium 141 Potassium 3.1 L Chloride 97 L Carbon Dioxide 31 BUN 56 H Creatinine 4.68 H* 4.03 H D Calcium 7.2 L AST 250 H ALT 477 H Albumin 3.0 L PG Care Time/CCT Total # of Minutes Spent Total Time Spent with Patient: Total time spent is greater than 50% in coordination of care (as documented) at patient's floor/unit and/or counseling patient: Coding Level of Care Code 93377 SUB INP/OBS CARE 3/50MIN Diagnoses Acute renal failure N17.9 Acute renal failure type: unspecified Right lower lobe pneumonia J18.9 Pneumonia type: due to unspecified organism Shock liver K72.00 Left ventricular apical thrombus I51.3 (1) Acute renal failure Acute renal failure type: unspecified Qualified Code(s): N17.9 - Acute kidney failure, unspecified (2) Right lower lobe pneumonia Pneumonia type: due to unspecified organism Qualified Code(s): J18.9 - Pneumonia, unspecified organism
[2022-12-05] MEDS: ASPIRIN 81 MG CHEW OG SCH (08:50)
[2022-12-05] MEDS: FOLIC ACID 1 MG in SYRINGE 9.8 ML IV SCH (08:51)
[2022-12-05] MEDS: HYDROCORTISONE SOD 50 MG in SYRINGE 0 ML IV SCH ×2 (08:51→21:34)
[2022-12-05] MEDS ORDERED: STAT IV STA (09:35)
[2022-12-05] MEDS ORDERED: CALCIUM GLUCONATE 10% 2,000 MG in DEXTROSE 5% 50 ML IV ONE (09:35)
[2022-12-05] MEDS: POTASSIUM CHLORIDE / WTR 10 MEQ/100 ML PLCT IV SCH ×4 (09:55→14:01)
--- NOTE | 2022-12-05 10:16 | Hospitalist Progress Note ---
Date of Service December 05, 2022 Assessment & Plan (1) Septic shock: Plan: source -right-sided pneumonia and bacteremia With septicemia-growing Staphylococcus epidermidis in 4/4 bottles resistant to oxacillin but sensitive to Vanco. Could be contaminant as per infectious disease as does not have any indwelling prosthetics or medical devices Sputum culture MSSA PNA Possibility the apical thrombus also could have vegetation Blood pressures are improved, now weaned off vasopressors and weaning off IV hydrocortisone With acute kidney injury, shock liver, encephalopathy, respiratory failure- multiorgan system failure-- all improving -ID recommends starting cefazolin for the MSSA pneumonia and continuing IV vancomycin for now for bacteremia, but can likely discontinue if repeat blood cultures remain negative as ID believes this is a contaminant -follow repeat blood cultures on 12/03-NGTD -Appreciate infectious disease consultation -follow CBC, CMP (2) Acute renal failure: Plan: severe, with resulting hyperkalemia Initially with oliguria now resolved after giving IV Lasix on 12/03 Creatinine peaked at 4.6 and now improving down to 4.0 Hyperkalemia now resolved after isotonic bicarbonate drip likely due to sepsis-associated ATN, rhabdomyolysis, in the setting of ARB therapy nephrology consulted for assistance Follow BMP in the morning Follow UOP Maintain Lizarraga catheter for now Holding home losartan (3) Left ventricular apical thrombus: Plan: large LV thrombus; vegetation cannot be excluded-on antibiotics Had rapid atrial fibrillation for a couple of hours earlier in her hospital stay heparin drip continues and then eventually switch to DOAC x3 months minimum Cardiology consult appreciated-could be due to low flow state given poor EF of 25-30% -Repeat echocardiogram on 12/05 shows improvement in EF to 40-45%, persistent large left apical thrombus Because cardiomyopathy could be secondary to NSTEMI given elevated troponin, cardiology recommends starting aspirin low-dose daily (4) Acute metabolic encephalopathy: Plan: numerous causes - sepsis/septic shock, ARNALDO, acute resp failure, benzodiazepine or alcohol withdrawal, etc Much improved Restart home p.o. 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 calcium when able to (8) Right lower lobe pneumonia: Plan: son reports he found vomit on his mother at home prior to EMS arrival thus - aspiration pneumonia? MRSA swab negative With MSSA pneumonia as above Treating with cefazolin Pulmonary toilet (9) Elevated troponin: Plan: cannot rule out ACS/NSTEMI in light of echo findings with reduced EF and wall motion abnormalities vs myocardial demand ischemia remains on heparin drip for apical thrombus Troponin trended downward after peaking at 3389 No ischemic changes on ECG Repeat echocardiogram with no wall motion abnormalities and improving EF as above Started aspirin 81 mg daily (10) History of bilateral breast cancer: Plan: initial dx early with subsequent recurrence and metastatic disease remains on anastrazole and Ibrance-Ibrance should remain on hold due to its immunosuppressive effects Can restart anastrozole now that she is taking p.o. Follows with Dr. Woodard of Oncology-discussed her care with oncology on 12/05 Follows with Palliative Med as outpt-currently on po dialudid about bid prn at home-here on IV dilaudid scheduled but will convert to p.o. Dilaudid (11) Regular alcohol consumption: Plan: continue thiamine/folate pt will not admit to exact amount of EtOH she drinks daily watch for symptoms/signs of withdrawal -AWSS Will ordered As needed Ativan Restart home clonazepam 1 mg p.o. 3 times daily-confirmed fills 90 tablets monthly in PDMP website (12) Cardiomyopathy: Plan: NEW, as seen on echo EF <30% initially Most likely nonischemic as EF has now improved to 40-45% Cardiology evaluation appreciated-most likely secondary to stress-induced cardiomyopathy Restarted home metoprolol (13) Type II diabetes mellitus: Plan: previous high a1c's several years ago now a1c <6% resolved (14) Macrocytic anemia: Plan: likely 2nd to etoh consumption, but Ibrance can also cause macrocytosis cannot rule out B12/folate/copper deficiencies, etc B12 level low at 259 1 year ago and folate level quite low at 2 last year as well Hemoglobin fairly stable today at 8.8 but overall lower than baseline of 11 a couple of months ago serial CBC Continue folic acid 1 mg IV once daily -recheck B12 levels in the morning. No sense in checking folate level as she has been receiving IV folic acid -Check iron studies in the morning (15) Shock liver: Plan: LFT pattern c/w acute liver injury/shock liver-now improving serial LFTs, INR Blood pressures are now improved, expect this to resolve (16) Hypomagnesemia: Plan: replaced resolved likely contributed to prolonged QTc (17) Prolonged QT interval: Plan: 2nd to low mag, low calcium telemetry monitoring replace electrolytes (18) Hypokalemia: Plan: Replace with IV potassium chloride today Follow BMP magnesium in the morning (19) Rapid atrial fibrillation: Plan: As above, had a few hours of rapid atrial fibrillation earlier in her stay, resolved on IV amiodarone Restarting home p.o. metoprolol now that she is able to swallow Will convert from IV amiodarone to p.o. amiodarone Cardiology consultation appreciated Plan DVT prophylaxis-Heparin drip Disposition-downgrade out of ICU to PCU Admission and Anticipated Discharge Date Admission Date: December 01, 2022 Subjective Patient reports feeling okay. No chest pain or shortness of breath, remains on supplemental O2. No BM since admission Seen by speech therapy today and cleared for a minced and moist diet. Telemetry with normal sinus rhythm Review of Systems Review of Systems: All systems reviewed & are unremarkable except as noted in HPI & below Physical Exam Constitutional: WD/WN, vitals as above Eyes: + anicteric sclerae Neck: trachea midline, no thyromegaly Respiratory: normal respiratory effort and + cough Auscultation: + diminished lung sounds (At the bases bilaterally) and + rhonchi; no crackles and no wheezes Cardiovascular: RRR, no murmur, no edema Gastrointestinal (Abdomen): normal bowel sounds, soft, nontender, no hepatosplenomegaly Musculoskeletal: Extremities: extremities normal to inspection; no cyanosis and no clubbing Skin: no rashes, warm and dry Neurologic: moves all extremities and awake Motor/Sensory: + fasciculations (some myoclonic jerks) Psychiatric: Orientation: alert, oriented to person, oriented to place and cooperative Genitourinary: Lizarraga catheter in place draining clear yellow urine Lymphatic: no lymphedema Results & Data Results & Data ([facility]) Vital Signs (Past 12 Hours) Vital Signs Temp Pulse Resp BP Pulse Ox O2 Del Method O2 Flow Rate 12/05/22 08:00 69 12/05/22 07:38 Nasal Cannula 2 12/05/22 06:00 36.4 C L 69 16 140/80 93 2 12/05/22 05:00 36.3 C L 71 21 134/87 91 Nasal Cannula 2 12/05/22 04:00 36.3 C L 75 16 142/85 H 96 Nasal Cannula 3 12/05/22 03:00 36.4 C L 69 22 144/89 H 94 Nasal Cannula 3 12/05/22 02:00 136/68 3 12/05/22 04:00 71 12/05/22 02:00 36.5 C 73 15 138/68 94 Nasal Cannula 3 12/05/22 01:00 36.5 C 73 19 146/92 H 94 Nasal Cannula 3 12/05/22 00:00 36.6 C 74 22 150/88 H 95 Nasal Cannula 3 12/04/22 23:00 36.6 C 72 16 142/85 H 95 Nasal Cannula 3 Laboratory Results 12/05/22 12/05/22 12/05/22 Range/Units 22:11 21:21 20:43 WBC (4.8-10.8) K/ul RBC (3.93-5.22) M/uL Hgb (12.0-16.0) g/dl Hct (34.1-44.9) % MCV (80.0-100.0) fL MCH (25.0-34.0) pg MCHC (32.0-36.0) g/dL RDW Std Deviation (36.4-46.3) fL RDW Coeff of Cheri (11.5-14.5) % Plt Count (130-400) K/uL MPV (9.4-12.3) fL Immature Gran % (Auto) % Neut % (Auto) % Lymph % (Auto) % Armstrong % (Auto) % Eos % (Auto) % Baso % (Auto) % Neut # (Auto) (1.4-6.5) K/uL Lymph # (Auto) (1.2-3.4) K/uL Armstrong # (Auto) (0.24-0.82) K/uL Eos # (Auto) (0-0.50) K/uL Baso # (Auto) (0-0.2) K/uL Immature Gran # (Auto) (0.00-0.02) K/uL Absolute Nucleated RBC (0-0) K/uL Nucleated RBC % (auto) % Polychromasia APTT (21.0-31.0) Seconds PTT Ratio Sodium (136-145) mmol/L Potassium (3.5-5.1) mmol/L Chloride (98-107) mmol/L Carbon Dioxide (21-32) mmol/L Anion Gap (3-11) BUN (6-23) mg/dl Creatinine (0.6-1.2) mg/dl Est Cr Clr Drug Dosing ml/min Est GFR ( Amer) ml/min Est GFR (Non-Af Amer) ml/min BUN/Creatinine Ratio (10-20) Glucose (70-99(Fasting)) mg/dl POC Glucose 125 H (70-99) mg/dl Calcium (8.5-10.1) mg/dl Ionized Calcium (1.12-1.32) mmol/L Phosphorus (2.5-4.9) mg/dl Magnesium (1.7-2.4) mg/dl Total Bilirubin (0.2-1.0) mg/dl AST (13-39) U/L ALT (7-52) U/L Alkaline Phosphatase (34-104) U/L Total Protein (6.0-8.3) gm/dl Albumin (3.4-5.0) gm/dl Globulin (2.5-4.0) gm/dl Albumin/Globulin Ratio (0.9-2) Vancomycin Trough Pending Cancelled (10-20) mcg/ml Urine Legionella Ag 12/05/22 12/05/22 12/05/22 Range/Units 06:09 05:32 05:32 WBC (4.8-10.8) K/ul RBC (3.93-5.22) M/uL Hgb (12.0-16.0) g/dl Hct (34.1-44.9) % MCV (80.0-100.0) fL MCH (25.0-34.0) pg MCHC (32.0-36.0) g/dL RDW Std Deviation (36.4-46.3) fL RDW Coeff of Cheri (11.5-14.5) % Plt Count (130-400) K/uL MPV (9.4-12.3) fL Immature Gran % (Auto) % Neut % (Auto) % Lymph % (Auto) % Armstrong % (Auto) % Eos % (Auto) % Baso % (Auto) % Neut # (Auto) (1.4-6.5) K/uL Lymph # (Auto) (1.2-3.4) K/uL Armstrong # (Auto) (0.24-0.82) K/uL Eos # (Auto) (0-0.50) K/uL Baso # (Auto) (0-0.2) K/uL Immature Gran # (Auto) (0.00-0.02) K/uL Absolute Nucleated RBC (0-0) K/uL Nucleated RBC % (auto) % Polychromasia APTT 47.1 H* (21.0-31.0) Seconds PTT Ratio 1.7 Sodium 141 (136-145) mmol/L Potassium 3.1 L (3.5-5.1) mmol/L Chloride 97 L (98-107) mmol/L Carbon Dioxide 31 (21-32) mmol/L Anion Gap 13 H (3-11) BUN 56 H (6-23) mg/dl Creatinine 4.03 H D (0.6-1.2) mg/dl Est Cr Clr Drug Dosing 13.3 ml/min Est GFR ( Amer) 12.3 ml/min Est GFR (Non-Af Amer) 10.6 ml/min BUN/Creatinine Ratio 13.9 (10-20) Glucose 114 H (70-99(Fasting)) mg/dl POC Glucose (70-99) mg/dl Calcium 7.2 L (8.5-10.1) mg/dl Ionized Calcium 0.88 L (1.12-1.32) mmol/L Phosphorus 5.7 H (2.5-4.9) mg/dl Magnesium 2.2 (1.7-2.4) mg/dl Total Bilirubin 0.6 (0.2-1.0) mg/dl AST 250 H (13-39) U/L ALT 477 H (7-52) U/L Alkaline Phosphatase 109 H (34-104) U/L Total Protein 6.0 (6.0-8.3) gm/dl Albumin 3.0 L (3.4-5.0) gm/dl Globulin 3.0 (2.5-4.0) gm/dl Albumin/Globulin Ratio 1.0 (0.9-2) Vancomycin Trough (10-20) mcg/ml Urine Legionella Ag 12/05/22 12/04/22 12/03/22 Range/Units 05:32 21:21 12:30 WBC 7.15 (4.8-10.8) K/ul RBC 2.30 L (3.93-5.22) M/uL Hgb 8.8 L (12.0-16.0) g/dl Hct 25.0 L (34.1-44.9) % MCV 108.7 H (80.0-100.0) fL MCH 38.3 H (25.0-34.0) pg MCHC 35.2 (32.0-36.0) g/dL RDW Std Deviation 56.7 H (36.4-46.3) fL RDW Coeff of Cheri 14.5 (11.5-14.5) % Plt Count 136 (130-400) K/uL MPV 11.6 (9.4-12.3) fL Immature Gran % (Auto) 2.1 % Neut % (Auto) 93.0 % Lymph % (Auto) 2.7 % Armstrong % (Auto) 2.2 % Eos % (Auto) 0.0 % Baso % (Auto) 0.0 % Neut # (Auto) 6.65 H (1.4-6.5) K/uL Lymph # (Auto) 0.19 L (1.2-3.4) K/uL Armstrong # (Auto) 0.16 L (0.24-0.82) K/uL Eos # (Auto) 0.00 (0-0.50) K/uL Baso # (Auto) 0.00 (0-0.2) K/uL Immature Gran # (Auto) 0.15 H (0.00-0.02) K/uL Absolute Nucleated RBC 0.03 H (0-0) K/uL Nucleated RBC % (auto) 0.4 % Polychromasia 1+ APTT (21.0-31.0) Seconds PTT Ratio Sodium (136-145) mmol/L Potassium (3.5-5.1) mmol/L Chloride (98-107) mmol/L Carbon Dioxide (21-32) mmol/L Anion Gap (3-11) BUN (6-23) mg/dl Creatinine (0.6-1.2) mg/dl Est Cr Clr Drug Dosing ml/min Est GFR ( Amer) ml/min Est GFR (Non-Af Amer) ml/min BUN/Creatinine Ratio (10-20) Glucose (70-99(Fasting)) mg/dl POC Glucose (70-99) mg/dl Calcium (8.5-10.1) mg/dl Ionized Calcium (1.12-1.32) mmol/L Phosphorus (2.5-4.9) mg/dl Magnesium (1.7-2.4) mg/dl Total Bilirubin (0.2-1.0) mg/dl AST (13-39) U/L ALT (7-52) U/L Alkaline Phosphatase (34-104) U/L Total Protein (6.0-8.3) gm/dl Albumin (3.4-5.0) gm/dl Globulin (2.5-4.0) gm/dl Albumin/Globulin Ratio (0.9-2) Vancomycin Trough 16.1 (10-20) mcg/ml Urine Legionella Ag SEE NOTE PG Care Time/CCT Total # of Minutes Spent Total Time Spent with Patient: Total time spent is greater than 50% in coordination of care (as documented) at patient's floor/unit and/or counseling patient: Coding Level of Care Code 34721 SUB INP/OBS CARE 3/50MIN Diagnoses Septic shock A41.9; R65.21 Acute renal failure N17.9 Acute renal failure type: unspecified Left ventricular apical thrombus I51.3 Acute metabolic encephalopathy G93.41 Acute respiratory failure with hypoxia J96.01 Rhabdomyolysis M62.82 Rhabdomyolysis type: non-traumatic Hypocalcemia E83.51 Right lower lobe pneumonia J18.9 Pneumonia type: due to unspecified organism Elevated troponin R77.8 History of bilateral breast cancer Z85.3 Regular alcohol consumption Z78.9 Cardiomyopathy I42.9 Type II diabetes mellitus E11.9 Macrocytic anemia D53.9 Shock liver K72.00 Hypomagnesemia E83.42 Prolonged QT interval R94.31 Hypokalemia E87.6 Rapid atrial fibrillation I48.91 (1) Acute renal failure Acute renal failure type: unspecified Qualified Code(s): N17.9 - Acute kidney failure, unspecified (2) Rhabdomyolysis Rhabdomyolysis type: non-traumatic Qualified Code(s): M62.82 - Rhabdomyolysis (3) Right lower lobe pneumonia Pneumonia type: due to unspecified organism Qualified Code(s): J18.9 - Pneumonia, unspecified organism
--- NOTE | 2022-12-05 10:41 | Infectious Disease Progress Nt ---
Date of Service December 05, 2022 Assessment & Plan (1) Septic shock: (2) Bacteremia: (3) Left ventricular apical thrombus: (4) Right lower lobe pneumonia: (5) Acute respiratory failure with hypoxia: (6) Acute renal failure: (7) Acute metabolic encephalopathy: (8) Shock liver: (9) Multi-organ system dysfunction: Plan 72 yo F with a history of metastatic breast cancer (dx 2002, metastatic to sacrum, spine, iliac on anastrozole/Ibrance), T2DM, CKD, HTN, HLD, regular alcohol consumption, depression, anxiety, pathologic fracture of pelvis and lumbosacral spine, who presented to the ED on 12/01 encephalopathic, after being found down asleep on the floor, and was initially admitted to the ICU with hypoxic respiratory failure requiring intubation, hypotension requiring pressors, pneumonia, and ARNALDO on CKD. On presentation, she was noted to have Cr 4.21, lactate 3.4, AST 612, ALT 206, alk phos 123, CK 881, procalcitonin 4.29. COVID-19, influenza, and RSV were negative. CTA chest was negative for PE, but showed a small R pleural effusion with moderate RLL airspace opacity likely reflecting pneumonia, but pulmonary infarct could have this imaging appearance however no PE identified. She was started on cefepime for pneumonia. A TTE showed EF 25-30%, a 2 x 2 cm pedunculated mass attached by a narrow stalk to the LV apex, thrombus most likely but vegetation a possibility. Admission BCx grew methicillin resistant Staph epi in 4/4 bottles, for which vancomycin was added. A sputum culture is growing MSSA. Pt has been off pressors since 12/02, and she was extubated on 12/04. A true Staph epi bacteremia would be unusual in the absence of hardware, prosthetic devices, or long-term catheters. This raises the question of a contaminant, although it is interesting that the BCx is positive in 4/4 bottles. Will continue vancomycin for now and await 12/03 repeat BCx. If she has persistent bacteremia, this would raise concern for a nidus of infection--given the TTE finding, possibly endocarditis vs seeding of an LV apex thrombus. Micro: 12/03 Urine Legionella Ag: negative 12/03 Acute hepatitis panel: negative 12/03 BCx x2: NGTD 12/02 Sputum cx: MSSA. GS--no organisms 12/02 MRSA nares: negative 12/01 BCID PCR panel: Staph epi detected, mecA/C resistance gene detected 12/01 BCx x2: Coag neg staph (not lugdunensis) in 4/4 bottles 12/01 SARS-CoV-2, influenza, RSV: negative Antimicrobial course: Vanc 12/02 - present Cefazolin 12/05 - present Cefepime 12/02 - 12/05 Problems: #MSSA pneumonia #LV apical thrombus vs vegetation #Blood cultures with methicillin resistant Staph epi: true bacteremia vs contaminant #Hypoxic respiratory failure: extubated 12/04 #ARNALDO on CKD: downtrending #Transaminitis: likely shock liver, downtrending. Acute hepatitis panel negative #Metastatic breast cancer: on anastrozole, Ibrance #QTc prolongation Recommendations: -Stopped cefepime and started renally-dosed cefazolin for MSSA pneumonia -Follow-up repeat BCx from 12/03. Continue vancomycin for now, but anticipate potentially discontinuing if 12/03 BCx remain negative, as it would be unlikely for pt to develop a true Staph epi bacteremia in the absence of hardware, prosthetic devices, long-term catheters, and the LV pedunculated mass may represent thrombus instead of vegetation -Await repeat TTE Admission and Anticipated Discharge Date Admission Date: December 01, 2022 Subjective Subsequent visit was provided via telemedicine using two-way real-time interactive telecommunication between the patient and the telemedicine provider. For the duration of the visit, the provider was performing the assessment from a different facility than the patient. This includesuse of bluetooth stethoscope forauscultationperformed by the telepresenter that the telemedicine provider can hear if described in the physical exam. [employer] contact information: Please call [facility] . (Phone Number For Physician Use Only) After establishing a telemedicine visit, patient was: Patient was verified with two unique identifiers, Patient/authorized rep acknowledged consent and understanding and Gave permission to continue telehealth session Time Spent with Patient: Subsequent => 25 min Extubated yesterday Currently on 2 L NC Cr, LFTs downtrending Remains on vanc dosed by level and cefepime Denies pain, denies diarrhea. Denies IVDU Reports the only hardware she has from a prior surgery is a clip from mastectomy Review of System A complete ROS was performed and is negative except as mentioned in the HPI. Physical Exam Physical Exam: GEN: laying in bed in NAD HEENT: Normocephalic, atraumatic. Ocular yellow crusting/exudate. Nasal cannula in place RESP: No increased work of breathing. On 2 L NC ABD: BS+. Soft, non-distended. Non-tender to palpation. EXT: No LE edema. Warm, well-perfused. SKIN: No lesions or rashes on exposed skin. NEURO: Drowsy. Answers all questions appropriately. Results & Data ([facility]) Vital Signs (Past 12 Hours) Vital Signs Temp Pulse Resp BP Pulse Ox O2 Del Method O2 Flow Rate 12/05/22 08:00 69 12/05/22 07:38 Nasal Cannula 2 12/05/22 06:00 36.4 C L 69 16 140/80 93 2 12/05/22 05:00 36.3 C L 71 21 134/87 91 Nasal Cannula 2 12/05/22 04:00 36.3 C L 75 16 142/85 H 96 Nasal Cannula 3 12/05/22 03:00 36.4 C L 69 22 144/89 H 94 Nasal Cannula 3 12/05/22 02:00 136/68 3 12/05/22 04:00 71 12/05/22 02:00 36.5 C 73 15 138/68 94 Nasal Cannula 3 12/05/22 01:00 36.5 C 73 19 146/92 H 94 Nasal Cannula 3 12/05/22 00:00 36.6 C 74 22 150/88 H 95 Nasal Cannula 3 12/04/22 23:00 36.6 C 72 16 142/85 H 95 Nasal Cannula 3 Laboratory Results Short CBC 12/05/22 Range/Units 05:32 WBC 7.15 (4.8-10.8) K/ul Hgb 8.8 L (12.0-16.0) g/dl Hct 25.0 L (34.1-44.9) % Plt Count 136 (130-400) K/uL BMP 12/05/22 05:32 Sodium 141 Potassium 3.1 L Chloride 97 L Carbon Dioxide 31 BUN 56 H Creatinine 4.03 H D Glucose 114 H Calcium 7.2 L Liver Function 12/05/22 Range/Units 05:32 Total Bilirubin 0.6 (0.2-1.0) mg/dl AST 250 H (13-39) U/L ALT 477 H (7-52) U/L Alkaline Phosphatase 109 H (34-104) U/L Albumin 3.0 L (3.4-5.0) gm/dl Diagnostic Findings Chest X-Ray 12/05/22 05:30 SINGLE VIEW CHEST CLINICAL HISTORY: Respiratory failure. FINDINGS: An AP, portable, upright chest radiograph is compared to study dated 12/04/2022. The examination is degraded by portable technique and patient rotation. Endotracheal and enteric tubes have been removed. The heart is enlarged. There is pulmonary vascular congestion. There are layering pleural effusions with bibasilar consolidation. No pneumothorax is seen. The skeletal structures are osteopenic. the bony thorax is grossly intact. IMPRESSION: 1. Endotracheal and enteric tubes have been removed. 2. Cardiomegaly with pulmonary vascular congestion. 3. Small pleural effusions with bibasilar consolidation. ACT 112: Negative or not required by law. Electronically signed by: Ho Roy M.D. 12/05/2022 7:42 AM Medications Administered Current Inpatient Medications Albuterol (Albut/Ipratrop 3mg/0.5mg Neb 3 Ml Vial) 3 ml INH Q4H PRN PRN Reason: Dyspnea Stop: 01/01/23 02:02 Aspirin (Aspirin 81 Mg Chew) [facility] [place] Stop: 01/03/23 08:59 Last Admin: 12/05/22 08:50 Dose: 81 mg Dextrose (Dextrose 50% 50 Ml Syringe) 25 - 50 ml IV UD PRN; Protocol PRN Reason: Hypoglycemia Protocol Stop: 01/01/23 02:37 Glucagon (Glucagon For Inj 1 Mg Vial) 1 mg SQ UD PRN; Protocol PRN Reason: Hypoglycemia Protocol Stop: 01/01/23 02:37 Glucose (Glucose 40% Gel 15 Gm Tube) 15 - 30 gm PO UD PRN; Protocol PRN Reason: Hypoglycemia Protocol Stop: 01/01/23 02:37 Glucose (Glucose 10 Tab/Tube) 4 - 8 tab PO UD PRN; Protocol PRN Reason: Hypoglycemia Treatment Stop: 01/01/23 02:37 Hydromorphone HCl (Hydromorphone Inj 1 Mg/Ml Syringe) 0.5 mg IV Q3H PRN PRN Reason: Pain Stop: 12/16/22 10:36 Hydromorphone HCl (Hydromorphone Inj 1 Mg/Ml Syringe) 0.5 mg IV Q12 [facility] Stop: 12/19/22 20:59 Pantoprazole Sodium 40 mg/ (Syringe) 10 mls @ 5 mls/min IV DAILY@1100 [facility] Stop: 01/01/23 10:59 Last Admin: 12/04/22 12:21 Dose: 5 mls/min Cefepime HCl 1,000 mg/ Syringe 10 mls @ 5 mls/min IV Q12H [facility]; Protocol Stop: 12/09/22 02:59 Last Admin: 12/05/22 00:31 Dose: 5 mls/min Heparin Sodium/Dextrose (Heparin Sodium/Dextrose) 25,000 units in 500 mls @ 23 mls/hr IV .[id number] [facility]; Protocol Stop: 01/01/23 09:29 Last Titration: 12/05/22 07:03 Dose: 1,150 units/hr, 23 mls/hr Thiamine HCl 200 mg/ Sodium (Chloride) 52 mls @ 210 mls/hr IV DAILY VI Stop: 01/04/23 08:59 Last Infusion: 12/05/22 07:32 Dose: Infused Folic Acid 1 mg/ Syringe 10 mls @ 5 mls/min IV DAILY [facility] Stop: 01/01/23 13:59 Last Admin: 12/05/22 08:51 Dose: 5 mls/min Amiodarone HCl/Dextrose (Nexterone / D5w) 360 mg in 200 mls @ 8.333 mls/hr IV .Q24H [facility] Stop: 01/01/23 22:14 Last Infusion: 12/05/22 07:03 Dose: 0.25 mg/min, 8.3 mls/hr Hydrocortisone Sodium (Succinate 50 mg/ Syringe) 1 mls @ 4 mls/min IV Q12H [facility] Stop: 12/05/22 21:01 Last Admin: 12/05/22 08:51 Dose: 4 mls/min Hydrocortisone Sodium (Succinate 50 mg/ Syringe) 1 mls @ 4 mls/min IV Q24H [facility] Stop: 12/07/22 09:16 Potassium Chloride (K Reji / Wtr) 10 meq in 100 mls @ 100 mls/hr IV Q1H [facility] Stop: 12/05/22 13:44 Last Admin: 12/05/22 09:55 Dose: 100 mls/hr Miscellaneous (Carbohydrates For Hypoglycemia ) 15 - 30 gm PO UD PRN PRN Reason: Hypoglycemia Protocol Stop: 01/01/23 02:37 Miscellaneous (Pending Order: If Random Vancomycin Level Less Than 20....) 1 each N/A TODAY@2100 ONE Stop: 12/05/22 21:01 Miscellaneous Information (Vancomycin Consult Active) 1 each N/A UD PRN PRN Reason: Consult Stop: 01/01/23 18:23 (1) Right lower lobe pneumonia Pneumonia type: due to unspecified organism Qualified Code(s): J18.9 - Pneumonia, unspecified organism (2) Acute renal failure Acute renal failure type: unspecified Qualified Code(s): N17.9 - Acute kidney failure, unspecified
--- NOTE | 2022-12-05 10:41 | Billing Data ---
Date of Service December 05, 2022 Coding Level of Care Code 50004 SUB INP/OBS CARE
--- NOTE | 2022-12-05 10:49 | Pharmacy Report ---
Pharmacy Vanc AUC Short Note - Date of Service December 05, 2022 - Assessment & Plan Assessment * 72 year old F receiving VANCOMYCIN + CEFEPIME for treatment of CoN staph bacteremia, possible infected LV thrombus, and MSSA PNA. Pharmacy is consulted to dose VANCOMYCIN. * Pertinent microbiologic data includes: negative MRSA Nasal Swab, 2 of 2 sets BLCXs from 12/01 growing CoNS (methicillin resistant), repeat BLCXs from 12/03 no growth to date, sputum cx growing MSSA * Day # 4 of antimicrobial therapy. * SCr remains elevated but appears to have plateaued and is now downtrending, UOP >0.5mL/kg/hr Plan Vancomycin * AUC/JEANNIE is the preferred PK/PD target for vancomycin - however given patient's severe ARNALDO and non-oligouric failure, she does not qualify for this dosing methodology. Rather will dose per random levels. * 12/02: Vanco load 1500mg IV x1 given @1926 * 12/03: Random level with AM labs = 17.7 @0458; 2nd random level obtained at 1700 (~12 hrs later) = 13.6. Vanco 750mg IV x 1 given @1944 * 12/04: Random level with AM labs = 23 @0455; 2nd random level obtained at 2100 (~16 hours later) = 16.1. Vanco 750mg IV x 1 given @2248 * I anticipate her level to be less than 20 this evening. Will check random level @2100 tonight. If level is < 20 will give 750mg IV Vanco. Pharmacy will continue to follow and will adjust dose/frequency as necessary. Thank you.
[2022-12-05] MEDS: PANTOprazole 40 MG in SYRINGE 0 ML IV SCH (11:00)
--- NOTE | 2022-12-05 11:16 | Cardiology Progress Note ---
Date of Service December 05, 2022 Assessment & Plan (1) Cardiomyopathy: Plan: Etiology uncertain, will check limited follow-up echocardiogram today to reevaluate left ventricular systolic function. If this is markedly improved, would suspect that sepsis/stress cardiomyopathy played a major role in transient LV dysfunction. If significant focal wall motions remain, may need to further evaluate for occlusive coronary artery disease. (2) Left ventricular apical thrombus: Plan: Will reassess at the time of echo today, however likely will take weeks to months to resolve. In the interim, anticoagulation for 3 months is warranted. (3) Atrial fibrillation with RVR: Plan: Could switch to oral amiodarone, she should be fully loaded after several days on intravenous amiodarone and did have recent bradycardia. Therefore, would utilize 200 mg amiodarone daily. Not clear that she needs permanent anticoagulation after single episode of atrial fibrillation, but in the near term she will need anticoagulation for her left ventricular apical thrombus. Reevaluate long-term anticoagulation need in 2 to 3 months. (4) Sinus bradycardia: Plan: Resolving on reduced dose amiodarone, oral dosing as above. Admission and Anticipated Discharge Date Admission Date: December 01, 2022 Subjective Patient markedly improved. Extubated, hemodynamically stable off pressors, renal function improving, rhythm sinus without recurrence of atrial fibrillation. At the time of my evaluation this morning, she had no complaints. Denied chest pain, dyspnea, subjective palpitations, or lightheadedness. Telemetry showed sinus rhythm in the 60-70 bpm range without dysrhythmias since paroxysmal atrial fibrillation 2-3 days ago. Physical Exam Physical Exam: No distress. BP 140/80 mmHg. Pulse 68 bpm and regular. Skin: no ecchymoses or generalized lesions. HEENT: unremarkable. Neck: Jugular venous pulse difficult to assess due to anatomy, no obvious carotid bruits. Lungs: Coarse rhonchi with scattered expiratory wheezing. No crackles. No accessory muscle use. Cardiac: regular rhythm, normal S1 and S2, no obvious murmur. Abdomen: benign. Extremities: No edema, pulses intact. Neurologic: Answer simple questions appropriately, grossly nonfocal. Results & Data ([facility]) Laboratory Results Normal sodium, potassium 3.1, BUN 56, creatinine 4.03. PG Care Time/CCT Total # of Minutes Spent Total Time Spent with Patient: Total time spent is greater than 50% in coordination of care (as documented) at patient's floor/unit and/or counseling patient: Coding Level of Care Code 78386 SUB INP/OBS CARE 350MIN Diagnoses Cardiomyopathy I42.9 Left ventricular apical thrombus I51.3 Atrial fibrillation with RVR I48.91 Sinus bradycardia R00.1
[2022-12-05] MEDS ORDERED: HYDROmorphone HCL 2 MG TAB PO PRN (11:56)
[2022-12-05] MEDS ORDERED: LORazepam 2 MG/1 ML VIAL IV PRN (11:56)
[2022-12-05] MEDS ORDERED: ACETAMINOPHEN 325 MG TAB PO PRN (11:56)
[2022-12-05] MEDS ORDERED: METOPROLOL TARTRATE 1 MG/ML VIAL IV ONE (12:11)
[2022-12-05] MEDS ORDERED: METOPROLOL TARTRATE 1 MG/ML VIAL IV PRN (12:27)
--- NOTE | 2022-12-05 12:58 | XCELERA ---
[id number]
[2022-12-05] MEDS: VENLAFAXINE HCL XR 150 MG CAPXR PO SCH (13:07)
[2022-12-05] MEDS: METOPROLOL SUCC 50MG EXT REL TAB PO SCH (13:07)
[2022-12-05] MEDS: VENLAFAXINE HCL XR 75 MG CAPXR PO SCH (13:08)
[2022-12-05] MEDS: ANASTROZOLE 1 MG TAB PO SCH (13:08)
[2022-12-05] MEDS: ceFAZolin 1000MG 1,000 MG/7.5 ML SYR IV SCH ×2 (13:08→21:34)
--- NOTE | 2022-12-05 13:35 | Electrocardiogram Report ---
Test Reason : Blood Pressure : / mmHG Vent. 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 lead placement vs. LVH Abnormal ECG When compared with ECG of 03-DEC-2022 05:46, Atrial fibrillation has replaced Sinus rhythm Vent. rate has increased BY 72 BPM Confirmed by Zack Hagen ([id number]) on 12/05/2022 1:35:03 PM Referred By: REFERRED SELF Confirmed By:Zack Hagen
[2022-12-05] MEDS ORDERED: 0.2 MICRON FILTER SET 1 EACH IV ONE (13:58)
[2022-12-05] MEDS: clonazePAM 1 MG TAB PO SCH ×2 (14:00→21:46)
[2022-12-05] MEDS ORDERED: [UNRECOGNIZED DRUG - REMARK] ONE (21:00)
[2022-12-05] MEDS ORDERED: HYDROmorphone INJ 1 MG/ML SYRINGE IV SCH (21:00)
--- NOTE | 2022-12-05 21:10 | CT Scan Report ---
CT head/brain wo con CLINICAL HISTORY: AMS, right side weakness Technique: Contiguous axial CT images of the head were acquired from the base of the skull to the manny ericka without intravenous contrast administration. Images were viewed in brain, subdural and bone [facility]. Automated dose lowering techniques and/or adjustment according to patient size were utilized for this exam. Comparison: Comparison is made to CT head 12/01/2022 Findings: There is a hypodensity in the right [employer] territory with suggestion of subarachnoid hemorrhage and poss ible thickening of the posterior falx. Otherwise no infarct is seen. Imaged portions of the paranasal sinuses and mastoid air cells are clear. The orbits appear normal. There are no acute fractures of the calvaria or scalp swelling. Impression: Interval development of a hypodensity in the right [employer] territory with possible associated subarachnoi d hemorrhage. Trace subdural hemorrhage in the posterior falx cannot be entirely excluded. Findings m ay represent acute/subacute infarct with hemorrhagic transformation. MRI can be performed if there is clinical uncertainty. ACT 112: Negative or not required by law. Electronically signed by: Joseph Longoria M.D. 12/05/2022 9:08 PM
[2022-12-05] MEDS ORDERED: VANCOMYCIN HCL 750 MG in SODIUM CHLORIDE 0.9% 250 ML IV ONE (22:45)
[2022-12-06] MEDS: AMIODARONE / D5W 360 MG/200 ML BAG IV SCH ×2 (01:19→13:13)
[2022-12-06] MEDS: ceFAZolin 1000MG 1,000 MG/7.5 ML SYR IV SCH ×3 (04:23→22:09)
[2022-12-06 05:04] LABS: Hematocrit (blood only) 24.7 % (34.1-44.9); Hemoglobin 8.5 g/dl (12.0-16.0); Mean Corpuscular Hemoglobin 38.5 pg (25.0-34.0); Mean Corpuscular Hgb Conc 34.4 g/dL (32.0-36.0); Mean Corpuscular Volume 111.8 fL (80.0-100.0); Nucleated RBC # (auto) 0.04 K/uL (0-0); Nucleated RBC % (auto) 0.7 %; Platelet Count 140 K/uL (130-400); RDW Coefficient of Variation 15.2 % (11.5-14.5); RDW Standard Deviation 61.2 fL (36.4-46.3); Red Blood Count 2.21 M/uL (3.93-5.22); White Blood Count 5.82 K/ul (4.8-10.8)
[2022-12-06 05:15] LABS: Partial Thromboplastin Ratio 0.9; Partial Thromboplastin Time 23.8 Seconds (21.0-31.0)
[2022-12-06 05:41] LABS: Immature Granulocytes # (auto) 0.06 K/uL (0.00-0.02); Lymphocytes # (auto) 0.14 K/uL (1.2-3.4); Lymphocytes % (auto) 2.4 %; Monocytes % (auto) 3.4 %; Neutrophils # (auto) 5.42 K/uL (1.4-6.5); Neutrophils % (auto) 93.2 %; Polychromasia 1+; Toxic Vacuolation 1+
[2022-12-06 05:42] LABS: Iron 29 mcg/dl (35-150); Total Iron Binding Cap Calc 274 mcg/dl (250-450); Transferrin (FE) Percent Satur 11 % (15-50); Unsaturated Iron Binding Cap 245 mcg/dl (155-355)
[2022-12-06 05:44] LABS: Albumin Globulin Ratio 1.1 (0.9-2); Albumin Level 3.1 gm/dl (3.4-5.0); BUN Creatinine Ratio 14.5 (10-20); Bilirubin,Total 0.5 mg/dl (0.2-1.0); Calcium 7.3 mg/dl (8.5-10.1); Creatinine Clr Calc Pharmacy 15.9 ml/min; Est GFR (African American) 15.2 ml/min; Est GFR (Non-African American) 13.1 ml/min; Globulin 2.9 gm/dl (2.5-4.0); Magnesium 1.9 mg/dl (1.7-2.4); Phosphorus 4.6 mg/dl (2.5-4.9); Potassium 2.9 mmol/L (3.5-5.1)
[2022-12-06 05:56] LABS: Ferritin 625.7 ng/ml (8-388)
--- NOTE | 2022-12-06 05:59 | Communication Note ---
Date of Service: December 06, 2022 Code stroke called to room 104. Patient was last seen normal at 20:30. Nursing noted RUE and RLE drift, dysarthria and decreased consciousness. CT of the head with interval development of a hypodensity inthe right [employer] territory with possible associated subarachnoid hemorrhage. Trace subdural hemorrhage in the posterior falx cannot be entirely excluded. Findings may represent acute/subacute infarct with hemorrhagic transformation. MRI can be performed if there is clinical uncertainty. MRI performed which revealed multiple areas of restricted diffusion scattered throughout the bilateral frontal, right temporal, right occipital and right cerebellar hemispheres consistent with embolic stroke. No intracranial hemorrhage. No midline shift. MRA with occlusion in the right vertebral artery. Filling of the distal right vertebral artery in a retrograde fashion. The left vertebral artery is dominant vessel. The remainder of the intracranial circulation is unremarkable without dissection, aneurysm, stenosis or occlusion. Patient with LV mass - thrombus vs vegetation Patient's son updated. Discussed transfer to [place]. Patient has been accepted Awaiting bed Will continue Neuro checks Neurology consultation
--- NOTE | 2022-12-06 07:11 | Magnetic Resonance Report ---
MRI OF THE BRAIN WITHOUT IV CONTRAST CLINICAL HISTORY: Stroke COMPARISON STUDY: CT of the brain dated 12/05/2022. TECHNIQUE: MRI of the brain was performed utilizing various T1 and T2-weighted sequences in the axial , sagittal, and coronal planes. IV contrast was not administered for this examination. FINDINGS: Brain parenchyma: There is a large region of restricted diffusion identified in the right occipital l obe consistent with acute to subacute ischemia. There are also small foci of restricted diffusion in the right thalamus, the right temporal lobe, and the right cerebellar hemisphere. There are also foci of restricted diffusion seen within the high right frontal parietal cortex, as well as the high left parietal cortex. There is also a punctate focus of restricted diffusion in the left occipital cortex . There is mild surrounding edema. There is subarachnoid hemorrhage identified along right posterior parieto-occipital sulci. This is best seen on coronal FLAIR image #23. No midline shift is seen. No e xtra-axial fluid collection is seen. There is age-related involutional change noting mild subcortical and periventricular microangiopathic disease. The cerebellar tonsils are normal in configuration. Ventricles, sulci, and cisterns: Prominent secondary to involutional change. Pituitary and sella: Unremarkable. Intracranial vasculature: Normal flow voids are maintained at the skull base. Orbits: The bony orbits are grossly intact. Orbital contents are normal in appearance. Sinuses and mastoids: There are large mastoid effusions. There is trace mucosal thickening left sphen oid sinus. Mild mucosal thickening is also noted within the frontal sinuses and the right anterior et hmoid sinuses. Calvarium: Unremarkable. Cervical cord: Partially visualized cervical spinal cord is normal in morphology and signal intensity . IMPRESSION: 1. There are numerous foci of restricted diffusion seen bilaterally, right greater than left. This is consistent with acute to subacute ischemia, it is greatest within the right occipital lobe. Bilatera l findings suggests an embolic phenomenon. 2. There is subarachnoid hemorrhage identified along the right posterior parieto-occipital sulci. 3. There is no midline shift. 4. Large mastoid effusions ACT 112: Negative or not required by law. Electronically signed by: Ho Roy M.D. 12/06/2022 7:10 AM
--- NOTE | 2022-12-06 07:27 | Magnetic Resonance Report ---
MRA OF THE INTRACRANIAL CIRCULATION WITHOUT CONTRAST CLINICAL HISTORY: ?Septic emboli COMPARISON STUDY: Head CT December 05, 2022. TECHNIQUE: Utilizing a 1.5 Katheryn magnet and 3-D [id number] technique, unenhanced MRA of the intra cranial circulation was obtained. FINDINGS: Please note that the MRI of the brain will be reported separately. Multiple infarcts and russell barachnoid hemorrhage are better depicted on that examination. The bilateral M1, M2, A1 and A2 segmen ts are patent. There is no central occlusion within the anterior circulation. There is no intracrania l aneurysm. There is trace flow within the right vertebral artery which is diminutive. This could be congenital. Left vertebral artery is dominant. Intracranial portion is patent. Basilar artery is liu nt. There is persistence of the left posterior cerebral artery. Bilateral mastoid fluid. IMPRESSION: No central vessel occlusion. No intracranial aneurysm. ACT 112: Negative or not required by law. Electronically signed by: Hakeem Rico M.D. 12/06/2022 7:26 AM
[2022-12-06] MEDS ORDERED: STAT IV STA (07:38)
[2022-12-06] MEDS ORDERED: MAGNESIUM SULFATE / D5W 1 GM/100 ML BAG IV ONE (07:40)
[2022-12-06] MEDS ORDERED: CALCIUM GLUCONATE 10% 1,000 MG in DEXTROSE 5% 50 ML IV ONE (08:00)
[2022-12-06] MEDS: POTASSIUM CHLORIDE / WTR 10 MEQ/100 ML PLCT IV SCH ×6 (08:10→14:31)
[2022-12-06] MEDS: VENLAFAXINE HCL XR 75 MG CAPXR PO SCH (08:31)
[2022-12-06] MEDS: PANTOprazole 40 MG TAB PO SCH (08:31)
[2022-12-06] MEDS: ROSUVASTATIN CALCIUM 5 MG TAB PO SCH (08:31)
[2022-12-06] MEDS: ANASTROZOLE 1 MG TAB PO SCH (08:31)
[2022-12-06] MEDS: METOPROLOL SUCC 50MG EXT REL TAB PO SCH (08:31)
[2022-12-06] MEDS: VENLAFAXINE HCL XR 150 MG CAPXR PO SCH (08:31)
[2022-12-06] MEDS: FOLIC ACID 1 MG in SYRINGE 9.8 ML IV SCH (08:33)
[2022-12-06] MEDS: HYDROCORTISONE SOD 50 MG in SYRINGE 0 ML IV SCH (08:33)
[2022-12-06] MEDS: THIAMINE HCL 200 MG in SODIUM CHLORIDE 0.9% 50 ML IV SCH (08:35)
--- NOTE | 2022-12-06 08:49 | Nephrology Progress Note ---
Date of Service December 06, 2022 Assessment & Plan (1) Acute renal failure: Plan: * ATN due to pneumonia/septic shock/rhabdomyolysis in the setting of ARB therapy * Cr improved 4.03-->3.3 last 24 hours (baseline Cr 1.0) * Recommend cautious supplementation of potassium and calcium - will defer to primary service * Patient is nonoliguric and remains within the recovery phase of ATN. No further Nephrology evaluation indicated. Will sign off. Please call if further assistance is needed (2) Right lower lobe pneumonia: Plan: * Cefazolin therapy (3) Left ventricular apical thrombus: Plan: * On Heparin, Vancomycin, Cefazolin Admission and Anticipated Discharge Date Admission Date: December 01, 2022 Subjective Ms. James was evaluated in her hospital room this morning. She appeared comfortable and was breathing easily on O2 at 2 L/min NC. She voiced no medical concerns Review of Systems Constitutional: no fever Eyes: no problem reported Respiratory: no dyspnea Cardiovascular: no chest pain Gastrointestinal: no abdominal pain Physical Exam Constitutional: not in distress Eyes: PERRL, conjunctivae normal, anicteric sclerae Neck: trachea midline, no thyromegaly Cardiovascular: RRR, no murmur, no edema Gastrointestinal (Abdomen): Inspection/Auscultation: abdomen normal to inspection and + hypoactive bowel sounds Neurologic: awake Results & Data ([facility]) Vital Signs (Past 12 Hours) Vital Signs Temp Pulse Resp BP Pulse Ox Pulse Ox O2 Del Method 12/06/22 00:00 66 12/06/22 02:00 95 Nasal Cannula 12/05/22 23:00 68 21 95 12/05/22 23:00 36.6 C 148/88 H 12/05/22 22:48 151/92 H 12/05/22 22:48 71 22 77 L 12/05/22 22:46 71 20 O2 Flow Rate 12/06/22 00:00 12/06/22 02:00 2 12/05/22 23:00 12/05/22 23:00 12/05/22 22:48 12/05/22 22:48 12/05/22 22:46 Laboratory Results Laboratory Tests 12/06/22 12/06/22 04:44 04:44 WBC 5.82 Hgb 8.5 L Hct 24.7 L Plt Count 140 Sodium 145 Potassium 2.9 L Chloride 100 Carbon Dioxide 34 H BUN 49 H Creatinine 3.37 H D Laboratory Tests 12/06/22 04:44 Calcium 7.3 L Albumin 3.1 L Coding Level of Care Code 20513 SUB INP/OBS CARE 50MIN Diagnoses Acute renal failure N17.9 Acute renal failure type: unspecified Right lower lobe pneumonia J18.9 Pneumonia type: due to unspecified organism Left ventricular apical thrombus I51.3 (1) Acute renal failure Acute renal failure type: unspecified Qualified Code(s): N17.9 - Acute kidney failure, unspecified (2) Right lower lobe pneumonia Pneumonia type: due to unspecified organism Qualified Code(s): J18.9 - Pneumonia, unspecified organism
--- NOTE | 2022-12-06 09:23 | Neurology Consultation ---
Date of Consultation December 06, 2022 Assessment & Plan (1) Embolic stroke: (2) Bacteremia: (3) Atrial fibrillation with RVR: (4) Left ventricular apical thrombus: (5) Breast cancer metastasized to bone: (6) Pathological fracture of lumbosacral spine: Plan Multifocal embolic infarcts involving primarily the right cerebellar hemisphere, posterior right occipital lobe, and diffusely in both cerebral hemispheres. There is associated subarachnoid hemorrhage along the right posterior parieto- occipital sulci. The strokes occurred in the context of atrial fibrillation with rapid ventricular response and left ventricular apical thrombus. However, endocarditis/vegetation could not be completely excluded. Patient also potentially has staph epidermidis bacteremia, further raising the possibility of stroke due to septic emboli. As there is evidence of stroke associated subarachnoid hemorrhage on imaging, would recommend against antithrombotic or anticoagulant treatment at this point in time. (Septic emboli do have a greater propensity for hemorrhage. Although it is difficult to determine based on MRI characteristics alone whether or not this patient's emboli are truly septic.) Again, would avoid antithrombotic or anticoagulant treatment acutely given evidence of stroke associated subarachnoid hemorrhage. Allow for permissive hypertension, systolic blood pressure goal range 140 to 160 mmHg. In speaking with patient's nurse at bedside, there are plans for potential transfer to a tertiary center given the severity of her illness. I do not object to this transfer. However, if patient were to remain at [facility] I would recommend obtaining a follow-up noncontrast CT of the head tomorrow morning to reassess the status of the hemorrhagic component of her stroke. Patient's stroke also occurs in the context of metastatic breast cancer with a known pathologic fracture of the lumbosacral spine. She also has a history of type 2 diabetes mellitus, hypertension, and hyperlipidemia as well as regular alcohol consumption. Thus, she has multiple other stroke risk factors in addition to atrial fibrillation and left ventricular thrombus/mass/possible vegetation. History of Present Illness Reason for Consultation: embolic stroke, septic emboli? Requesting Physician: Gloria Galloway DO Attending Physician: Fabi Leach MD History of Present Illness The patient is a 72-year-old female with a history of metastatic breast cancer, type 2 diabetes mellitus, chronic kidney disease, hypertension, hyperlipidemia, regular alcohol consumption, pathologic fracture of the lumbosacral spine who had presented to the emergency department on December 01 with encephalopathy, found asleep on the floor, initially admitted to the ICU with hypoxic respiratory failure requiring intubation, hypotension, pneumonia, acute kidney injury. She had developed recurrent atrial fibrillation with rapid ventricular response yesterday. An echocardiogram has revealed global hypokinesis of the left ventricle with an associated left ventricular apical thrombus. A code stroke alert was called earlier this morning, around 5:50 AM. Patient was noted to have right-sided weakness, dysarthria, and reduced level of awareness. Alan armendariz has undergone CT of the head, as well as MRI and MRA of the brain. The studies reveal multifocal acute embolic infarct as well as an element of subarachnoid hemorrhage. I did independently review these images. There are multiple areas of restricted diffusion within the right cerebellar hemisphere, right occipital lobe, and both cerebral hemispheres. Majority of stroke burden is within the posterior right occipital lobe. There is subarachnoid hemorrhage along the right posterior parietal-occipital sulci. MR angiography of the head unremarkable. The patient is lethargic and inattentive, she is an unreliable historian. Admission blood cultures have grown methicillin-resistant staph epidermidis and several bottles. Infectious diseases has been following. Is not entirely clear if the positive cultures are due to a contaminant or not. Allergies Allergy/AdvReac Type Severity Reaction Status Date / Time fentanyl AdvReac Severe Hallucinati Verified 08/26/22 08:14 on Home Medications Medication Instructions Recorded Confirmed Type cholecalciferol (vitamin D3) 50 50 mcg PO QAM 01/06/22 12/01/22 History mcg (2,000 unit) capsule acetaminophen 325 mg tablet 650 mg PO Q6H PRN pain, mild 02/08/22 12/01/22 History anastrozole 1 mg tablet 1 mg PO QAM 02/08/22 12/01/22 History multivitamin with minerals 1 cap PO QAM 02/08/22 12/01/22 History losartan 100 mg tablet 100 mg PO QAM #90 tabs 05/30/22 12/01/22 Rx metoprolol succinate 100 mg 100 mg PO QAM #90 tabs 07/23/22 12/01/22 Rx tablet,extended release 24 hr omeprazole 20 mg capsule,delayed 20 mg PO QAM #90 caps 07/23/22 12/01/22 Rx release Ibrance 1 dose PO UD 08/12/22 08/26/22 History calcium carbonate 600 mg-vitamin 1 tab PO QAM 08/12/22 12/01/22 History D3 10 mcg (400 unit) tablet (Calcium 600 + D(3)) gabapentin 600 mg tablet 600 mg PO QAM 08/12/22 12/01/22 History hydromorphone 8 mg tablet 4 mg PO Q4 PRN Pain, Severe 08/12/22 12/01/22 History magnesium 250 mg tablet 250 mg PO DAILY 08/12/22 12/01/22 History venlafaxine 150 mg 150 mg PO QAM #90 caps 09/04/22 12/01/22 Rx capsule,extended release 24 hr rosuvastatin 5 mg tablet 5 mg PO DAILY #90 tabs 10/03/22 12/01/22 Rx clonazepam 1 mg tablet 1 mg PO TID #90 tabs 10/22/22 12/01/22 Rx venlafaxine 75 mg capsule,extended 75 mg PO QAM 12/01/22 12/01/22 History release 24 hr Patient History Medical History Acute alteration in mental status Bilateral breast cancer [id number]--sx/chemo/radiation Breast cancer metastasized to bone 2021 Cancer related pain Case discussed with Dr. Miller/[facility], who has been managing patient's complex cancer pain with Methadone 5mg TID + prn Dilaudid oral. it is noted that pt has h/o ETOH abuse and ?opioid misuse. Her son reportedly struggles with substance abuse and there have been several early requests for opioids, raising the concern someone else is taking her meds. 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/no clinical documentation spec Osteoarthritis Pain of right lower extremity Palliative care encounter Type II diabetes mellitus Vitamin D deficiency Surgical History H/O tubal ligation History of appendectomy History of section History of colonoscopy History of esophagogastroduodenoscopy (EGD) History of left breast biopsy malignant History of lumpectomy of both breasts x2 History of right breast biopsy malignant History of tooth extraction History of wisdom tooth extraction Hx laparoscopic cholecystectomy (08/13/22) Laparoscopic Cholecystectomy - Alexandro Alvarez, DO, FACS Status post correction of deviated nasal septum Family History Grandmother (Maternal) AAA (abdominal aortic aneurysm) Family history of diabetes mellitus Mother No problems noted. 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 Children do You have: 1 Other Information That Helps Us Care for You: No Feels Safe at Home: Yes Safety Concerns: Feels Safe At This Time Seatbelt Use: always Sunscreen Use: Yes Assistive Devices: None Review of Systems Review of Systems: Unobtainable due to reduced consciousness Exam (Neuro) Constitutional: well developed and + altered mental status Eyes: normal visual john by confrontation (Does not have a gross visual field deficit with confrontation testing), PERRL and EOM intact bilaterally Cardiovascular: Vessels: no carotid bruit Neurologic: Oriented to:: Person; negative Place or Time Memory: Remote Intact; negative Short Term Intact Attention: negative Span Intact or Concentration Intact Speech Fluency: Slowed; negative Dysfluency Fund of Knowledge: Vocabulary; negative Current Events Cranial Nerves: Normal II, III, IV, , V, VII, VIII, IX, X, XI and XII Motor Strength: Hemiparesis Laterality: Right Motor Tone: Normal Lower Extremities and Normal Upper Extremities Muscle Bulk/Involuntary Movements: No Involuntary Movements Sensation: Vibration Intact; negative Light Touch Intact or Pain/Temperature Intact Coordination: Finger-Nose Abnormal Laterality: Right and Heel-Parham Abnormal Laterality: Right Deep Tendon Reflexes: Rt Triceps: 1+, Lt Triceps: 1+, Rt Biceps: 1+, Lt Biceps: 1+, Rt Brachioradialis: 1+, Lt Brachioradialis: 1+, Rt Patellar: 1+, Lt Patellar: 1+, Rt Ankle: 0 and Lt Ankle: 0 Special Tests: Babinski Present Details: Gait cannot be tested, patient exhibits endpoint tremor with [id number] on the right. She has some ataxia with [id number] on the right as well. I do not find an obvious left hemifield deficit in spite of the posterior right occipital lobe infarct. Results & Data ([facility]) Vital Signs (Past 12 Hours) Vital Signs Temp Pulse Resp BP Pulse Ox Pulse Ox O2 Del Method 12/06/22 00:00 66 12/06/22 02:00 95 Nasal Cannula 12/05/22 23:00 68 21 95 12/05/22 23:00 36.6 C 148/88 H 12/05/22 22:48 151/92 H 12/05/22 22:48 71 22 77 L 12/05/22 22:46 71 20 O2 Flow Rate 12/06/22 00:00 12/06/22 02:00 2 12/05/22 23:00 12/05/22 23:00 12/05/22 22:48 12/05/22 22:48 12/05/22 22:46 Laboratory Results WBC 5.82, hemoglobin 8.5, hematocrit 24.7, MCV 111.8, platelet count 140, sodium 145, potassium 2.9, BUN 49, creatinine 3.37, glucose 107, magnesium 1.9, AST 131, ALT 301 Diagnostic Findings MRI and MRA of the brain including CT of the head are as described above in the HPI. Echocardiogram is as described in the HPI. Electrocardiogram has revealed atrial fibrillation with rapid ventricular response. PG Care Time/CCT Total # of Minutes Spent Total Time Spent with Patient: Total time spent is greater than 50% in coordination of care (as documented) at patient's floor/unit and/or counseling patient: 90 min Coding Level of Care Code 61235 INT INP/OBS CARE 3/75MIN Diagnoses Embolic stroke I63.9 Bacteremia R78.81 Atrial fibrillation with RVR I48.91 Left ventricular apical thrombus I51.3 Breast cancer metastasized to bone C50.919; C79.51 Pathological fracture of lumbosacral spine M84.48XA
--- NOTE | 2022-12-06 10:17 | Cardiology Progress Note ---
Date of Service December 06, 2022 Assessment & Plan (1) Atrial fibrillation with RVR: (2) Cardiomyopathy: (3) Left ventricular apical thrombus: (4) Anticoagulant long-term use: (5) Sinus bradycardia: Plan 1. Atrial fibrillation: She initially had a relatively brief episode of atrial fibrillation, lasting less than 5 hours, at a rate which was somewhat elevated. Now however she has had recurrence yesterday for about 7 and half hours with an elevated heart rate. I agree we should continue amiodarone, intravenous for the time being, I would switch to 200 mg orally twice a day when possible, that may keep her out of atrial fibrillation in the future. Anticoagulation as noted below. 2. Cardiomyopathy: It appears her cardiomyopathy is stress related and although her ejection fraction has not normalized it has improved considerably. Often this resolves quickly as patients improve. We can repeat the echocardiogram next week. 3. Left ventricular mass: Although conceivably this is not a thrombus, that seems the most likely. We can follow with echocardiography, it remains present on yesterday's echocardiogram. 4. Anticoagulation: For the atrial fibrillation she should be on an anticoagulant, certainly her [id number] score would suggest it. If her left ventricular mass is a thrombus that would also be an indication for anticoagulation. As noted from neurology's note they recommend against anticoagulation, this is a very difficult situation where from the cardiac standpoint she should be on an anticoagulant and from the neurologic standpoint she should not. I will leave the decision up to the primary team. 5. 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 She does take metoprolol succinate at home and historically her heart rate has not been low however it was even off of beta-blockade, now however she is back on beta-blockade and her heart rate is acceptable in sinus rhythm. Today her heart rate is better, she will need something for rate control during atrial fibrillation (currently metoprolol) but at this point I would not consider a pacemaker. It appears that we will be able to control her heart rate adequately with medical therapy adjustments. Admission and Anticipated Discharge Date Admission Date: December 01, 2022 Subjective She is in good spirits today, she is awake and responsive. Her son is at her bedside. No specific complaints. Physical Exam Physical Exam: Constitutional: Alert, cooperative and in no clear distress. HEENT: Unremarkable Neck: No jugular venous distention, carotid pulses are normal and equal bilaterally without bruits. Pulmonary: Clear to auscultation bilaterally. Cardiac: Regular rhythm with no murmur, gallop or rub. Abdomen: Soft, nontender with normal bowel sounds. Extremities: No edema. Neurologic: No focal findings. Gait was not tested. Skin: No rash. Results & Data ([facility]) Vital Signs (Past 12 Hours) Vital Signs Temp Pulse Resp BP Pulse Ox Pulse Ox O2 Del Method 12/06/22 08:00 61 12/06/22 09:39 Nasal Cannula 12/06/22 00:00 66 12/06/22 02:00 95 12/05/22 23:00 68 21 95 12/05/22 23:00 36.6 C 148/88 H 12/05/22 22:48 151/92 H 12/05/22 22:48 71 22 77 L 12/05/22 22:46 71 20 O2 Del Method O2 Flow Rate O2 Flow Rate 12/06/22 08:00 12/06/22 09:39 2 12/06/22 00:00 12/06/22 02:00 Nasal Cannula 2 12/05/22 23:00 12/05/22 23:00 12/05/22 22:48 12/05/22 22:48 12/05/22 22:46 Laboratory Results Cardiac Enzymes 12/06/22 Range/Units 04:44 AST 131 H (13-39) U/L Coagulation 12/06/22 Range/Units 04:44 APTT 23.8 (21.0-31.0) Seconds CBC 12/06/22 Range/Units 04:44 WBC 5.82 (4.8-10.8) K/ul RBC 2.21 L (3.93-5.22) M/uL Hgb 8.5 L (12.0-16.0) g/dl Hct 24.7 L (34.1-44.9) % Plt Count 140 (130-400) K/uL Neut # (Auto) 5.42 (1.4-6.5) K/uL Lymph # (Auto) 0.14 L (1.2-3.4) K/uL [place] # (Auto) 0.20 L (0.24-0.82) K/uL Eos # (Auto) 0.00 (0-0.50) K/uL Baso # (Auto) 0.00 (0-0.2) K/uL Comprehensive Metabolic Panel 12/06/22 Range/Units 04:44 Sodium 145 (136-145) mmol/L Potassium 2.9 L (3.5-5.1) mmol/L Chloride 100 (98-107) mmol/L Carbon Dioxide 34 H (21-32) mmol/L BUN 49 H (6-23) mg/dl Creatinine 3.37 H D (0.6-1.2) mg/dl Glucose 107 H (70-99(Fasting)) mg/dl Calcium 7.3 L (8.5-10.1) mg/dl AST 131 H (13-39) U/L ALT 301 H (7-52) U/L Alkaline Phosphatase 104 (34-104) U/L Total Protein 6.0 (6.0-8.3) gm/dl Albumin 3.1 L (3.4-5.0) gm/dl Intake and Output 12/05/22 12/06/22 12/06/22 22:59 06:59 14:59 Intake Total 510.283 / 1488.786 462.060 / 1488.786 96.667 / 96.667 Output Total 550 / 2150 600 / 2150 Balance -39.717 / -661.214 -137.940 / -661.214 96.667 / 96.667 Intake: IV 510.283 / 1488.786 462.060 / 1488.786 96.667 / 96.667 Amiodarone / D5w 360 mg In 200 77.933 / 274.993 197.060 / 274.993 ml @ 0.5 MG/MIN 16.667 mls/hr IV .Q12H VI Rx#:[id number] Heparin Sodium/Dextrose 25,000 332.350 / 386.400 0 / 386.400 units In 500 ml @ 0 UNITS/HR IV .Q0M VI Rx#:[id number] Potassium Chloride / Wtr 10 meq 100 / 400 96.667 / 96.667 In 100 ml @ 100 mls/hr IV Q1H VI Rx#:[id number] Vancomycin HCl 750 mg In Sodium 265 / 265 Chloride 0.9% 250 ml @ 200 mls /hr IV ONE ONE Rx#:[id number] Output: Urine Amount (Catheter) 550 / 2150 600 / 2150 [place]/Indwelling 550 / 2150 600 / 2150 Other: Weight 81.2 kg Weight Measurement Method Built in [facility] Diagnostic Findings Telemetry: Sinus rhythm and sinus bradycardia for the most part, 7 and half hours of atrial fibrillation midday yesterday with a heart rate around 120 to 130 bpm. PG Care Time/CCT Total # of Minutes Spent Total Time Spent with Patient: Total time spent is greater than 50% in coordination of care (as documented) at patient's floor/unit and/or counseling patient: Coding Level of Care Code 08830 SUB INP/OBS CARE 3/50MIN Diagnoses Atrial fibrillation with RVR I48.91 Cardiomyopathy I42.9 Left ventricular apical thrombus I51.3 Anticoagulant long-term use Z79.01 Sinus bradycardia R00.1
--- NOTE | 2022-12-06 10:57 | Discharge Summary ---
Date of Service December 06, 2022 Admission HPI Per Admitting Provider The patient is a 72-year-old female with a past medical history including bilateral breast cancer, hypertension, regular alcohol consumption, depression with anxiety, diverticulitis, hyperlipidemia, seasonal allergies, GERD, mild mitral valve prolapse, diabetes mellitus type 2, vitamin D deficiency, pathologic fracture of pelvis and lumbosacral spine, folate deficiency, metastatic cancer and history of acute kidney injury due to acute dehydration. The patient presents to the emergency department as noted above, and acute respiratory failure with hypoxia and hypercapnia. She was intubated by emergency department as noted, and further work-up progressed. Significant abnormal laboratories: Hemoglobin 9.6, hematocrit 29.0, potassium 6.0, creatinine 4.21, lactate 3.4, magnesium 1.3, ionized calcium 0.67, AST 612, ALT 206, troponin 1727.4. EKG showed new T wave inversions in leads I and aVL, V2 and V3 Chest x-ray showed endotracheal tube in proper position, cardiomegaly, and CTA chest was negative for PE. There were patchy infiltrates in the right upper and lower lobe. Liver was fatty and hypodense. Fatty pancreas. Emphysematous changes at the left lung apex with a subpleural bleb. Principal Diagnosis Acute embolic CVAs, subarachnoid hemorrhage LV thrombus Septic shock MSSA PNA, Staph bacteremia Ventilator dependent respiratory failure ARNALDO Shock liver Rapid atrial fibrillation Chronic opioid and benzodiazepine dependence with withdrawal and encephalopathy Discharge Exam Constitutional WD/WN, vitals as above Eyes + anicteric sclerae and PERRL ENMT slight left facial droop Neck trachea midline, no thyromegaly Respiratory + tachypneic Auscultation: + diminished lung sounds (At the bases bilaterally), + crackles (bases) and + rhonchi (bilat); no wheezes Cardiovascular RRR, no murmur, no edema Gastrointestinal (Abdomen) normal bowel sounds, soft, nontender, no hepatosplenomegaly Musculoskeletal Extremities: extremities normal to inspection; no cyanosis and no clubbing Skin no rashes, warm and dry Neurologic moves all extremities and + confused restless and agitated at times Tongue protrudes to right, slight left facial droop 3/5 strength RUE, 4/5 RLE, 5/5 LUE and LLE Psychiatric Orientation: alert and oriented to person; + not oriented to time Genitourinary Lizarraga in place Lymphatic no lymphedema Discharge Data Allergies Allergy/AdvReac Type Severity Reaction Status Date / Time fentanyl AdvReac Severe Hallucinati Verified 08/26/22 08:14 on Consultations 12/01/22 23:29 ED Decision to Admit Stat 12/02/22 02:03 Consult Target Protection Specialist Routine 12/02/22 07:30 Consult Nephrology Routine 12/02/22 09:12 Consult Palliative Care Routine 12/02/22 09:18 Consult Cardiology Routine 12/03/22 09:22 Consult Infectious Diseases Routine 12/06/22 05:58 Consult Neurology Routine Ordered Studies ECHO Cervical Spine CT 12/01/22 22:01 CT OF THE CERVICAL SPINE WITHOUT CONTRAST CLINICAL HISTORY: Altered mental status. COMPARISON STUDY: PET/CT August 07, 2022. TECHNIQUE: Helical axial images of the cervical spine were obtained without IV contrast. Sagittal and coronal reconstructions were viewed. Automated exposure control was utilized for the study. A dose lowering technique was utilized adhering to the principles of ALARA. FINDINGS: The bilateral mastoid air cells are largely opacified. Endotracheal tube is partially imaged. Bilateral pleural effusions and interlobular septal thickening with groundglass opacities are better depicted on the chest CT which will be reported separately. There is reversal of the cervical lordosis. No acute cervical spine fracture is present. A small amount of prevertebral edema is noted. This is nonspecific. Moderate multilevel degenerative changes within the cervical spine are present. IMPRESSION: 1. No acute cervical spine fracture or subluxation. 2. Small amount of prevertebral edema, a nonspecific finding. 3. Moderate multilevel degenerative changes within the cervical spine. 4. Bilateral mastoid effusions. ACT 112: Negative or not required by law. Electronically signed by: Hakeem Rico M.D. 12/02/2022 7:56 AM Chest X-Ray 12/01/22 22:01 XR chest 1V portable CLINICAL HISTORY: Sepsis TECHNIQUE: Single frontal radiograph of the chest was obtained. Comparison: Comparison is made to chest radiograph 08/12/2022 and CTA chest 08/12/2022 FINDINGS: Enteric tube terminates 4.5 cm from the raghu. Cardiomegaly is noted. The lungs are clear. No evidence of pleural effusion or pneumothorax. IMPRESSION: Cardiomegaly without evidence of pneumonia. ACT 112: Negative or not required by law. Electronically signed by: Joseph Longoria M.D. 12/02/2022 8:[address] 12/01/22 22:01 CT head/brain wo con CLINICAL HISTORY: ams Technique: Contiguous axial CT images of the head were acquired from the base of the skull to the vertex without intravenous contrast administration. Images were viewed in brain, subdural and bone windows. Automated dose lowering techniques and/or adjustment according to patient size were utilized for this exam. Comparison: Comparison is made to CT head 02/11/2022 Findings: The ventricles, basal cisterns, and cerebral sulci are normal. There is no acute intracranial hemorrhage or evidence of acute territorial infarction. Neither mass effect, shift of the midline structures, nor abnormal extra-axial fluid collections are shown. There is opacification of the bilateral mastoid air cells, new from prior exam. The orbits appear normal. There are no acute fractures of the calvaria or scalp swelling. Impression: 1. No acute intracranial hemorrhage, no evidence of acute territorial infarction or other acute intracranial disease process. 2. New bilateral mastoid effusion compatible with mastoiditis. ACT 112: Negative or not required by law. Electronically signed by: Joseph Longoria M.D. 12/02/2022 8:29 AM Chest CTA 12/01/22 22:48 CT ANGIOGRAPHY OF THE CHEST, PULMONARY EMBOLUS PROTOCOL CLINICAL HISTORY: Shortness of breath. Altered mental status. Evaluate for pulmonary embolus. COMPARISON STUDY: Chest CT August 12, 2022 and chest radiograph December 01, 2022. TECHNIQUE: Following IV administration of 113 mL of Optiray, helical axial images of the chest were obtained utilizing the pulmonary embolus protocol. Maximal intensity projections and sagittal and coronal reformats were viewed on an independent 3D workstation. IV contrast was administered without complication. Automated exposure control was utilized for the study. A dose lowering technique was utilized adhering to the principles of ALARA. CT DOSE: 1656.15 mGy.cm FINDINGS: No pulmonary emboli are identified although the segmental and subsegmental pulmonary arteries are suboptimally assessed on this exam. There is moderate cardiomegaly. Preferential dilatation of the right heart chambers is noted with straightening of the interventricular septum. IVC and hepatic veins are distended. There is reflux of contrast. There is no pericardial effusion. No pneumothorax is present. There is a small right pleural effusion. Moderate right lower lobe airspace opacity is noted. There are additional biapical opacities. Interlobular septal thickening is present. Central airways are patent. Trace perihepatic ascites is noted. There is moderate upper abdominal stranding. This could be due to volume overload. IMPRESSION: 1. No pulmonary emboli identified although segmental and subsegmental pulmonary arteries suboptimally assessed due to respiratory motion. 2. Cardiomegaly with preferential dilatation of the right heart chambers, straightening of the interventricular septum and reflux of contrast into the IVC and hepatic veins which are distended. The findings suggest right heart dysfunction/elevated right heart pressures. 3. Small right pleural effusion with moderate right lower lobe airspace opacity. This likely reflects pneumonia. A pulmonary infarct could have this imaging appearance however no pulmonary emboli are identified. If persistent clinical suspicion for pulmonary emboli, lower extremity venous ultrasound could be obtai henrry. 4. Mild pulmonary edema. ACT 112: Negative or not required by law. Electronically signed by: Hakeem Rico M.D. 12/02/2022 8:24 AM Chest X-Ray 12/02/22 05:15 XR chest 1V portable CLINICAL HISTORY: OG tube placement TECHNIQUE: Single frontal radiograph of the chest was obtained. Comparison: Comparison is made to chest radiograph 12/01/2022 FINDINGS: Enteric tube side-port and tip lies below the diaphragm. Endotracheal tube is stable. Cardiomegaly is noted. The lungs are clear. No evidence of pleural effusion or pneumothorax. IMPRESSION: Satisfactory appearance of enteric and endotracheal tubes. Cardiomegaly is noted. ACT 112: Negative or not required by law. Electronically signed by: Joseph Longoria M.D. 12/02/2022 12:58 PM Chest X-Ray 12/02/22 23:32 XR chest 1V portable CLINICAL HISTORY: evaluate ETT and lung feilds- TECHNIQUE: Single frontal radiograph of the chest was obtained. Comparison: None available at the time of this dictation. FINDINGS: An endotracheal tube is at raghu. An enteric tube side-port is at the gastroesophageal junction. The cardiomediastinal silhouette is normal. Bilateral lower lung predominant airspace opacities are seen. There is a left pleural effusion. IMPRESSION: 1. Endotracheal tube is at the raghu and can be withdrawn approximately 3 cm for improved positioning. Enteric tube side-port is likely at the gastroesophageal junction and can be advanced approximately 3 cm for improved positioning. 2. Bilateral lower lung predominant airspace opacities which may represent atelectasis, pneumonia, and/or aspiration. 3. Left pleural effusion. ACT 112: Negative or not required by law. Electronically signed by: Joseph Longoria M.D. 12/03/2022 11:36 AM Chest X-Ray 12/03/22 05:30 XR chest 1V portable CLINICAL HISTORY: while intubated- evaluate lines and lung john COMPARISON STUDY: Chest CT November 2022 and chest radiograph December 02, 2022. FINDINGS: Tip of endotracheal tube is 2.7 cm above the raghu. Tip of nasogastric tube is at least within the body of the stomach. There is no pneumothorax. Cardiomegaly is again noted. Bilateral pleural effusions and bibasilar opacities persist. The appearance of the chest is similar to prior exam. Pulmonary edema is again noted. IMPRESSION: 1. Satisfactory positioning of the endotracheal tube. 2. Persistent bilateral pleural effusions and bibasilar opacities which could reflect pneumonia or atelectasis. 3. Cardiomegaly with stable pulmonary edema. ACT 112: Negative or not required by law. Electronically signed by: Hakeem Rico M.D. 12/03/2022 8:52 AM Chest X-Ray 12/04/22 05:30 XR chest 1V portable HISTORY: Respiratory failure. while intubated- evaluate lines and lung john COMPARISON: Chest 12/03/2022. FINDINGS: Endotracheal tube and nasogastric tube remain unchanged in position. A coaxial remains enlarged. Bilateral pleural effusions and bibasilar airspace opacities persist. No evidence for pulmonary edema. IMPRESSION: 1. Satisfactory support line placement. 2. No change in the bibasilar airspace opacities and pleural effusions. ACT 112: Negative or not required by law. Electronically signed by: Freddy New M.D. 12/04/2022 8:59 AM Brain MRI 12/05/22 00:00 MRI OF THE BRAIN WITHOUT IV CONTRAST CLINICAL HISTORY: Stroke COMPARISON STUDY: CT of the brain dated 12/05/2022. TECHNIQUE: MRI of the brain was performed utilizing various T1 and T2-weighted sequences in the axial, sagittal, and coronal planes. IV contrast was not administered for this examination. FINDINGS: Brain parenchyma: There is a large region of restricted diffusion identified in the right occipital lobe consistent with acute to subacute ischemia. There are also small foci of restricted diffusion in the right thalamus, the right temporal lobe, and the right cerebellar hemisphere. There are also foci of restricted diffusion seen within the high right frontal parietal cortex, as well as the high left parietal cortex. There is also a punctate focus of restricted diffusion in the left occipital cortex. There is mild surrounding edema. There is subarachnoid hemorrhage identified along right posterior parieto-occipital sulci. This is best seen on coronal FLAIR image #23. No midline shift is seen. No extra-axial fluid collection is seen. There is age-related involutional change noting mild subcortical and periventricular microangiopathic disease. The cerebellar tonsils are normal in configuration. Ventricles, sulci, and cisterns: Prominent secondary to involutional change. Pituitary and sella: Unremarkable. Intracranial vasculature: Normal flow voids are maintained at the skull base. Orbits: The bony orbits are grossly intact. Orbital contents are normal in appearance. Sinuses and mastoids: There are large mastoid effusions. There is trace mucosal thickening left sphenoid sinus. Mild mucosal thickening is also noted within the frontal sinuses and the right anterior ethmoid sinuses. Calvarium: Unremarkable. Cervical cord: Partially visualized cervical spinal cord is normal in morphology and signal intensity. IMPRESSION: 1. There are numerous foci of restricted diffusion seen bilaterally, right greater than left. This is consistent with acute to subacute ischemia, it is greatest within the right occipital lobe. Bilateral findings suggests an embolic phenomenon. 2. There is subarachnoid hemorrhage identified along the right posterior parieto-occipital sulci. 3. There is no midline shift. 4. Large mastoid effusions ACT 112: Negative or not required by law. Electronically signed by: Ho Roy M.D. 12/06/2022 7:10 AM Chest X-Ray 12/05/22 05:30 SINGLE VIEW CHEST CLINICAL HISTORY: Respiratory failure. FINDINGS: An AP, portable, upright chest radiograph is compared to study dated 12/04/2022. The examination is degraded by portable technique and patient rotation. Endotracheal and enteric tubes have been removed. The heart is enlarged. There is pulmonary vascular congestion. There are layering pleural effusions with bibasilar consolidation. No pneumothorax is seen. The skeletal structures are osteopenic. the bony thorax is grossly intact. IMPRESSION: 1. Endotracheal and enteric tubes have been removed. 2. Cardiomegaly with pulmonary vascular congestion. 3. Small pleural effusions with bibasilar consolidation. ACT 112: Negative or not required by law. Electronically signed by: Ho Roy M.D. 12/05/2022 7:[address] 12/05/22 20:44 CT head/brain wo con CLINICAL HISTORY: AMS, right side weakness Technique: Contiguous axial CT images of the head were acquired from the base of the skull to the vertex without intravenous contrast administration. Images were viewed in brain, subdural and bone windows. Automated dose lowering techniques and/or adjustment according to patient size were utilized for this exam. Comparison: Comparison is made to CT head 12/01/2022 Findings: There is a hypodensity in the right ELEVATOR MECHANIC APPRENTICE territory with suggestion of subarachnoid hemorrhage and possible thickening of the posterior falx. Otherwise no infarct is seen. Imaged portions of the paranasal sinuses and mastoid air cells are clear. The orbits appear normal. There are no acute fractures of the calvaria or scalp swelling. Impression: Interval development of a hypodensity in the right ELEVATOR MECH[employer]IC APPRENTICE territory with possible associated subarachnoid hemorrhage. Trace subdural hemorrhage in the posterior falx cannot be entirely excluded. Findings may represent acute/subacute infarct with hemorrhagic transformation. MRI can be performed if there is clinical uncertainty. ACT 112: Negative or not required by law. Electronically signed by: Joseph Longoria M.D. 12/05/2022 9:08 PM Head MRA 12/05/22 21:23 MRA OF THE INTRACRANIAL CIRCULATION WITHOUT CONTRAST CLINICAL HISTORY: ?Septic emboli COMPARISON STUDY: Head CT December 05, 2022. TECHNIQUE: Utilizing a 1.5 Katheryn magnet and 3-D [id number] technique, unenhanced MRA of the intracranial circulation was obtained. FINDINGS: Please note that the MRI of the brain will be reported separately. Multiple infarcts and subarachnoid hemorrhage are better depicted on that examination. The bilateral M1, M2, A1 and A2 segments are patent. There is no central occlusion within the anterior circulation. There is no intracranial aneurysm. There is trace flow within the right vertebral artery which is diminutive. This could be congenital. Left vertebral artery is dominant. Intracranial portion is patent. Basilar artery is patent. There is persistence of the left posterior cerebral artery. Bilateral mastoid fluid. IMPRESSION: No central vessel occlusion. No intracranial aneurysm. ACT 112: Negative or not required by law. Electronically signed by: Hakeem Rico M.D. 12/06/2022 7:[address] 12/06/22 10:50 CT OF THE HEAD WITHOUT CONTRAST CLINICAL HISTORY: f/u SAH,CVA COMPARISON STUDY: Head CT December 052022. MRI of the brain December 05, 2022. CT DOSE: 788.63 mGycm TECHNIQUE: Helical axial images of the head were obtained without IV contrast. Automated exposure control was utilized for the study. A dose lowering technique was utilized adhering to the principles of ALARA. FINDINGS: Minimal acute subarachnoid hemorrhage overlying the right parieto- occipital region remains unchanged since head CT of December 05, 2022. No new sites of hemorrhage are present. Multiple acute to subacute infarcts are also unchanged appearance. The largest is within the right occipital lobe. The appearance of the brain is unchanged. Ventricular system is stable. Basal cisterns are patent. There are no extra axial collections. Bilateral mastoid air cells are opacified, as before. There is no calvarial fracture. IMPRESSION: No significant change in appearance of the brain. Redemonstration of multiple acute to subacute infarcts and trace acute subarachnoid hemorrhage overlying the right parieto-occipital region. ACT 112: Negative or not required by law. Electronically signed by: Hakeem Rico M.D. 12/06/2022 12:[address] 12/07/22 08:00 CT head/brain wo con CLINICAL HISTORY: f/u SAH Technique: Contiguous axial CT images of the head were acquired from the base of the skull to the vertex without intravenous contrast administration. Images were viewed in brain, subdural and bone windows. Automated dose lowering techniques and/or adjustment according to patient size were utilized for this exam. Comparison: Comparison is made to CT head 12/06/2022 Findings: Exam is limited by patient motion. Overall unchanged appearance of numerous acute to subacute infarcts in the right parieto-occipital brain with subarachnoid hemorrhage. No new hemorrhage is seen. No significant midline shift or herniation is seen. Imaged portions of the paranasal sinuses and mastoid air cells are clear. The orbits appear normal. There are no acute fractures of the calvaria or scalp swelling. Impression: Interval stability of multiple acute to subacute infarct and trace acute subarachnoid hemorrhage in the right parieto-occipital lobes. No new hemorrhage or infarct is seen. ACT 112: Negative or not required by law. Electronically signed by: Joseph Longoria M.D. 12/07/2022 12:18 PM Chest X-Ray 12/07/22 08:16 XR chest 1V portable CLINICAL HISTORY: hypoxia,respiratory distress,pneumonia TECHNIQUE: Single frontal radiograph of the chest was obtained. Comparison: Comparison is made to chest radiograph 12/05/2022 FINDINGS: No lines and tubes are seen. Cardiomegaly is noted. There is prominence and cephalization of the vasculature with [place] B lines seen. Multiple airspace opacities are seen. No evidence of pleural effusion or pneumothorax. IMPRESSION: 1. Cardiomegaly and moderate pulmonary edema. This represents an increase from prior exam. 2. Multifocal airspace opacities may represent atelectasis, pneumonia, aspiration, and/or alveolar edema. ACT 112: Negative or not required by law. Electronically signed by: Joseph Longoria M.D. 12/07/2022 8:54 AM Hospital Course (1) Subarachnoid hemorrhage: With trace subarachnoid hemorrhage noted on brain MRI on the night of 12/05 after having multiple embolic strokes in the setting of being on heparin drip for LV thrombus Hold heparin drip, hold aspirin Check repeat CT head noncontrast on 12/06-unchanged Repeat head CT again in the morning of 12/07-remains with multiple CVAs and acute SAH right posterio-occipital lobes not increased Accepted in transfer to [facility] in case of need for neurosurgery in setting of need for anticoagulation for LV thrombus and/or CT Surgery to intervene on LV thrombus (2) Embolic stroke: With multiple bilateral embolic strokes seen on MRI brain With right-sided weakness, some decreased mentation, left-sided droop of face Likely secondary to thromboembolism from LV thrombus Holding heparin drip unfortunately due to subarachnoid hemorrhage as above Appreciate neurology consultation MRA head with diminutive flow in right vertebral artery but otherwise no large vessel occlusion. MRA neck not performed as majority of strokes and posterior circulation but could consider carotid Doppler. Echocardiogram performed the day of stroke shows known LV thrombus Repeat limited ECHO on 12/07 again with LV thrombus still present Continue to monitor on telemetry for recurrent atrial fibrillation Continue neurochecks -Keep n.p.o. for now, no need for IVFs as is volume overloaded -Permissive hypertension (3) Septic shock: source -right-sided pneumonia and bacteremia With septicemia-growing Staphylococcus epidermidis in 4/4 bottles resistant to oxacillin but sensitive to Vanco. ID thinks could be contaminant as per infectious disease as does not have any indwelling prosthetics or medical devices Sputum culture MSSA PNA Possibility the apical thrombus also could have vegetation Blood pressures are improved, now weaned off vasopressors and weaned off IV hydrocortisone With acute kidney injury, shock liver, encephalopathy, respiratory failure- multiorgan system failure -ID recommends starting cefazolin for the MSSA pneumonia and continuing IV vancomycin for now for bacteremia -follow repeat blood cultures on 12/03-NGTD -Appreciate infectious disease consultation -follow CBC, CMP (4) Acute renal failure: severe, with resulting hyperkalemia Initially with oliguria now resolved after giving IV Lasix on 12/03 Creatinine peaked at 4.6 and now improving down to 3.0, making plenty of urine Hyperkalemia now resolved after isotonic bicarbonate drip likely due to sepsis-associated ATN, rhabdomyolysis, in the setting of ARB therapy nephrology consulted for assistance With volume overload now, remains +6L, with worsening respiratory distress and hypoxia on 5L O2 mask on 12/07 CXR 12/07 with worsening pulm edema -give IV lasix 40mg IV x 1 now Follow BMP Follow [facility]OP Maintain Lizarraga catheter for now Holding home losartan (5) Left ventricular apical thrombus: large LV thrombus; vegetation cannot be excluded-on antibiotics Had rapid atrial fibrillation for a couple of hours earlier in her hospital stay was on heparin drip until with SAH as above-now on hold Cardiology consult appreciated-could be due to low flow state given poor EF of 25-30% -Repeat echocardiogram on 12/05 shows improvement in EF to 40-45%, persistent large left apical thrombus Because cardiomyopathy could be secondary to NSTEMI given elevated troponin, car diology recommends starting aspirin low-dose daily-which is now on hold for SAH -transfer to [facility] and may need CT SUrgery eval for LV thrombus as unable to anticoagulate right now (6) Acute metabolic encephalopathy: numerous causes - sepsis/septic shock, ARNALDO, acute resp failure, benzodiazepine or alcohol withdrawal, etc was improved, but then did not get any clonazepam after CVA on 12/05 while NPO. Now with evidence of benzo withdrawal developing on evening of 12/06--> given IV ativan scheduled and had improvement SOn also reports she gets agitation from opioid withdrawal. Started scheduled IV dialudid 0.5mg IV bid-takes dilaudid 8mg po bid at home (7) Acute respiratory failure with hypoxia: multi-organ failure with pneumonia, bacteremia, ARNALDO, etc all to blame appreciate vent management by pulmonary/critical care-now extubated since 12/04 With worsening due to volume overload from ARNALDO and IVFs given when in septic shock -give lasix IV on 12/07 Continue supplemental O2 and wean off as able to-currently on 5L OxyMask (8) Rhabdomyolysis: 2nd to fall/laying on ground at home CPK is only mildly elevated - doubt cause of ARNALDO repeat CPK about the same in the 800s (9) Hypocalcemia: severe but improving with replacement 2nd to Xgeva most likelyAs well as from low magnesium likely the major skip load driver of prolonged QTc seen on EKG Replacing again today with IV calcium Follow levels in the morning Restart home p.o. calcium when able to (10) Right lower lobe pneumonia: son reports he found vomit on his mother at home prior to EMS arrival thus - aspiration pneumonia? MRSA swab negative With MSSA pneumonia as above Treating with cefazolin Pulmonary toilet (11) Elevated troponin: cannot rule out ACS/NSTEMI in light of echo findings with reduced EF and wall motion abnormalities vs myocardial demand ischemia remains on heparin drip for apical thrombus Troponin trended downward after peaking at 3389 No ischemic changes on ECG Repeat echocardiogram with no wall motion abnormalities and improving EF as above Started aspirin 81 mg daily but now on hold for SAH (12) History of bilateral breast cancer: initial dx early with subsequent recurrence and metastatic disease remains on anastrazole and Ibrance-Ibrance should remain on hold due to its immunosuppressive effects Can restart anastrozole now that she is taking p.o. Follows with Dr. Woodard of Oncology-discussed her care with oncology on 12/05 Follows with Palliative Med as outpt-currently on po dialudid 8mg po bid prn at home-here on IV dilaudid scheduled to avoid withdrawal (13) Regular alcohol consumption: continue thiamine/folate pt will not admit to exact amount of EtOH she drinks daily watch for symptoms/signs of withdrawal -AWSS Will ordered ativan scheduled now (14) Cardiomyopathy: NEW, as seen on echo EF <30% initially Most likely nonischemic as EF has now improved to 40-45% Cardiology evaluation appreciated-most likely secondary to stress-induced cardiomyopathy Restarted home metoprolol but with encephalopathy could not take po--> started scheduled IV lopressor (15) Type II diabetes mellitus: previous high a1c's several years ago now a1c <6% resolved (16) Macrocytic anemia: likely 2nd to etoh consumption, but Ibrance can also cause macrocytosis cannot rule out B12/folate/copper deficiencies, etc B12 level low at 259 1 year ago and folate level quite low at 2 last year as well Hemoglobin fairly stable today at 8.8 but overall lower than baseline of 11 a couple of months ago serial CBC Continue folic acid 1 mg IV once daily B12 level here now normal No sense in checking folate level as she has been receiving IV folic acid Transferrin sat low at 11%-would benefit from FeSO4 once taking po (17) Shock liver: LFT pattern c/w acute liver injury/shock liver-now improving serial LFTs, INR Blood pressures are now improved, expect this to resolve (18) Hypomagnesemia: replaced resolved likely contributed to prolonged QTc (19) Prolonged QT interval: 2nd to low mag, low calcium telemetry monitoring replace electrolytes (20) Hypokalemia: Replace with IV potassium chloride today with 60 meq KCl Follow BMP and magnesium serially (21) Rapid atrial fibrillation: As above, had a few hours of rapid atrial fibrillation earlier in her stay, resolved on IV amiodarone Then had recurrence x 6 hours on afternoon of 12/05 Now remains in sinus -continue metoprolol heparin gtt on hold as above for SAH Cardiology consultation appreciated Plan DVT prophylaxis-Heparin drip on hold for SAH Disposition-transfer to [place] Total Time Total Time Spent Total Time Spent (In Minutes): 90 min Discharge Plan Discharge Items Patient Disposition: Transfer Acute Care Hospital Reason For Visit: ACUTE RESP FAILURE W/ HYPOXIA & HYPERCAPNEA Discharge Diagnosis: Embolic CVA, Subarachnoid hemorrhage MSSA Pneumonia, septic shock ARNALDO, SHock liver Staph epidermidis bacteremia Activity: As commented below Lifting: None Bathing: No limitations Exercise/Sports: Rest today Non-emergency contact: Primary Care Provider Call non-emergency contact if: you have any medication questions and your symptoms worsen Follow-up/Referrals: Judie Ojeda CRNP [Primary Care Provider] - Diet: Nothing by Mouth Addtl Attending Provider Instructions: Transferred to [facility] Pending Studies at Discharge: Yes Studies:: repeat blood cultures Stand-Alone Forms: My [facility] Skilled Items Patient informed of condition?: Yes DNR: No Discharge Level of Care: Other Communicable Disease: No Discharge Prognosis: Deteriorating Lines: Peripheral IV Urinary Catheter: Yes Medications and DC Order Prescriptions: Continued omeprazole 20 mg capsule,delayed release(DR/EC) 20 mg PO QAM Qty: 90 3RF metoprolol succinate 100 mg tablet extended release 24 hr 100 mg PO QAM Qty: 90 3RF venlafaxine 150 mg capsule,extended release 24hr 150 mg PO QAM Qty: 90 3RF Rx Instructions: Take with 75mg capsule to = 225mg total daily dose. rosuvastatin 5 mg tablet 5 mg PO DAILY Qty: 90 3RF clonazepam 1 mg tablet 1 mg PO TID Qty: 90 1RF acetaminophen 325 mg tablet 650 mg PO Q6H PRN (Reason: pain, mild) anastrozole 1 mg tablet 1 mg PO QAM multivitamin with minerals Capsule 1 cap PO QAM cholecalciferol (vitamin D3) 50 mcg (2,000 unit) capsule 50 mcg PO QAM hydromorphone 8 mg tablet 4 mg PO Q4 PRN (Reason: Pain, Severe) Rx Instructions: 1/2 tablet dose Ibrance 1 dose PO UD Rx Instructions: take daily for 3 weeks then off for 1 week magnesium 250 mg Tablet 250 mg PO DAILY calcium carbonate-vitamin D3 [Calcium 600 + D(3)] 600 mg-10 mcg (400 unit) Tablet 1 tab PO QAM venlafaxine 75 mg capsule,extended release 24hr 75 mg PO QAM Rx Instructions: Take with 150mg capsule to = 225mg daily dose Discontinued losartan 100 mg tablet 100 mg PO QAM Qty: 90 3RF gabapentin 600 mg tablet 600 mg PO QAM Discharge Orders: Discharge Order (Routine); Ordered 12/06/22 Ordered By: Fabi Leach Admission Data Admit Date/Time: 12/01/22 23:48 Attending Provider: Fabi Leach Admit Provider: Flavio Hogue Primary Care Provider: Judie Ojeda Other Providers: Flavio Hogue ; Georgiana Jewell ; Mehrdad Looney ; Giovanni Engle ; Mireya Harrington ; Mosies Awad ; Majo Guzmán ; Sara Dorsey ; Zack Hagen ; Leonor Bledsoe ; Valentin Pratt ; Latonia Pabon ; Kadi Mustafa ; Alessandra Doan ; Clover Mittal ; Wendy Hendricks ; Larisa Merida ; Tish Moseley ; Buster Velarde Coding Level of Care Code HOSP INP/OBS DISCH >30 MIN Diagnoses Subarachnoid hemorrhage I60.9 Embolic stroke I63.9 Septic shock A41.9; R65.21 Acute renal failure N17.9 Acute renal failure type: unspecified Left ventricular apical thrombus I51.3 Acute metabolic encephalopathy G93.41 Acute respiratory failure with hypoxia J96.01 Rhabdomyolysis M62.82 Rhabdomyolysis type: non-traumatic Hypocalcemia E83.51 Right lower lobe pneumonia J18.9 Pneumonia type: due to unspecified organism Elevated troponin R77.8 History of bilateral breast cancer Z85.3 Regular alcohol consumption Z78.9 Cardiomyopathy I42.9 Type II diabetes mellitus E11.9 Macrocytic anemia D53.9 Shock liver K72.00 Hypomagnesemia E83.42 Prolonged QT interval R94.31 Hypokalemia E87.6 Rapid atrial fibrillation I48.91
--- NOTE | 2022-12-06 11:36 | Communication Note ---
Date of Service: December 06, 2022 Overnight events noted, new stroke, awaiting transfer to [place]. Palliative med will sign off, as patient is transferring to a higher level of care. No charge submitted, pt not seen. chart reviewed/TS 12min Beatriz Britt DNP Clinical Director, Palliative Medicine
--- NOTE | 2022-12-06 12:30 | CT Scan Report ---
CT OF THE HEAD WITHOUT CONTRAST CLINICAL HISTORY: f/u SAH,CVA COMPARISON STUDY: Head CT December 052022. MRI of the brain December 05, 2022. CT DOSE: 788.63 mGycm TECHNIQUE: Helical axial images of the head were obtained without IV contrast. Automated exposure con trol was utilized for the study. A dose lowering technique was utilized adhering to the principles o f ALARA. FINDINGS: Minimal acute subarachnoid hemorrhage overlying the right parieto-occipital region remains unchanged since head CT of December 05, 2022. No new sites of hemorrhage are present. Multiple acute t o subacute infarcts are also unchanged appearance. The largest is within the right occipital lobe. Th e appearance of the brain is unchanged. Ventricular system is stable. Basal cisterns are patent. Ther e are no extra axial collections. Bilateral mastoid air cells are opacified, as before. There is no c alvarial fracture. IMPRESSION: No significant change in appearance of the brain. Redemonstration of multiple acute to subacute infar cts and trace acute subarachnoid hemorrhage overlying the right parieto-occipital region. ACT 112: Negative or not required by law. Electronically signed by: Hakeem Rico M.D. 12/06/2022 12:29 PM
--- NOTE | 2022-12-06 15:10 | Infectious Disease Progress Nt ---
Date of Service December 06, 2022 Assessment & Plan (1) Bacteremia: (2) Left ventricular apical thrombus: (3) Right lower lobe pneumonia: (4) Acute respiratory failure with hypoxia: (5) Acute renal failure: (6) Acute metabolic encephalopathy: (7) Shock liver: Plan 72 yo F with a history of metastatic breast cancer (dx 2002, metastatic to sacrum, spine, iliac on anastrozole/Ibrance), T2DM, CKD, HTN, HLD, regular alcohol consumption, depression, anxiety, pathologic fracture of pelvis and lumbosacral spine, who presented to the ED on 12/01 encephalopathic, after being found down asleep on the floor, and was initially admitted to the ICU with hypoxic respiratory failure requiring intubation, hypotension requiring pressors, pneumonia, and ARNALDO on CKD. On presentation, she was noted to have Cr 4.21, lactate 3.4, AST 612, ALT 206, alk phos 123, CK 881, procalcitonin 4.29. COVID-19, influenza, and RSV were negative. CTA chest was negative for PE, but showed a small R pleural effusion with moderate RLL airspace opacity likely reflecting pneumonia, but pulmonary infarct could have this imaging appearance however no PE identified. She was started on cefepime for pneumonia. A TTE showed EF 25-30%, a 2 x 2 cm pedunculated mass attached by a narrow stalk to the LV apex, thrombus most likely but vegetation a possibility. Admission BCx grew methicillin resistant Staph epi in 4/4 bottles, for which vancomycin was added. A sputum culture is growing MSSA. Pt has been off pressors since 12/02, and she was extubated on 12/04. Hospital course now complicated by stroke noted 12/06, with MRI brain showing numerous bilateral foci of restricted diffusion suggesting an embolic phenomenon. A true Staph epi bacteremia would be unusual in the absence of hardware, prosthetic devices, or long-term catheters. This raises the question of a contaminant, although it is interesting that the BCx is positive in 4/4 bottles. Repeat BCx from 12/03 are NGTD, which is reassuring. The TTEs on 12/02 and 12/05 show an LV mass (most likely thrombus, but also consider vegetation), and she now has embolic strokes. Her TTE finding and strokes in the setting of afib could all be related to an LV thrombus. However, differential also includes MRSE endocarditis and septic emboli. She is awaiting transfer to [place]. Micro: 12/03 Urine Legionella Ag: negative 12/03 Acute hepatitis panel: negative 12/03 BCx x2: NGTD 12/02 Sputum cx: MSSA. GS--no organisms 12/02 MRSA nares: negative 12/01 BCID PCR panel: Staph epi detected, mecA/C resistance gene detected 12/01 BCx x2: Coag neg staph (not lugdunensis) in 4/4 bottles 12/01 SARS-CoV-2, influenza, RSV: negative Antimicrobial course: Vanc 12/02 - present Cefazolin 12/05 - present Cefepime 12/02 - 12/05 Problems: #Bilateral embolic strokes #MSSA pneumonia #LV apical thrombus vs vegetation #Blood cultures with methicillin resistant Staph epi: true bacteremia vs contaminant #Hypoxic respiratory failure: extubated 12/04 #ARNALDO on CKD: downtrending #Transaminitis: likely shock liver, downtrending. Acute hepatitis panel negative #Metastatic breast cancer: on anastrozole, Ibrance #QTc prolongation Recommendations: -Would discuss with cardiology whether a ALIDA may be helpful in differentiating thrombus vs vegetation -Staph epi seems more likely to be a contaminant here, with her embolic strokes related to an LV thrombus in the setting of afib. However, it may be reasonable to be conservative and continue vancomycin (renally dosed) for now to treat possible methicillin-resistant Staph epi bacteremia -Can continue on cefazolin for MSSA pneumonia--anticipate 7-10 day course starting from 12/02. If her respiratory status worsens, would consider broadening to ceftriaxone to cover possible aspiration. Admission and Anticipated Discharge Date Admission Date: December 01, 2022 Subjective This patient recommendation is based on a telemedicine consult request which was completed asynchronously through chart review and information provided by the primary physician. The patient was not seen or examined today. The evaluation is consultative in nature and all patient care and treatment decisions can either be accepted or rejected by the patient's primary hospital-based treating physician using their own independent medical judgment for their patient. Time Spent Reviewing Chart: 31+ minutes Stroke code called this AM. CT head showed hypodensity in R [employer] territory with possible associated SAH. MRI showed numerous foci of restricted diffusion bilaterally, R>L, consistent with acute to subacute ischemia, bilateral findings suggest embolic phenomenon. MRA showed no central vessel occlusion. Repeat CT head is stable. She has been accepted for transfer to [place], and is awaiting bed Cr downtrended to 3.37 LFTs continue to downtrend 12/03 BCx remain NGTD Review of System Pt was not seen Physical Exam Physical Exam: Pt was not seen Results & Data ([facility]) Vital Signs (Past 12 Hours) Vital Signs Temp Pulse Resp BP Pulse Ox O2 Del Method O2 Flow Rate 12/06/22 11:00 59 L 23 96 12/06/22 10:00 60 22 97 12/06/22 09:50 152/95 H 12/06/22 09:50 61 21 90 12/06/22 09:00 62 22 97 12/06/22 08:00 62 21 97 12/06/22 08:00 165/89 H 12/06/22 07:43 163/91 H 12/06/22 07:43 61 21 98 12/06/22 07:00 61 24 98 12/06/22 08:00 36.8 C 12/06/22 08:00 61 12/06/22 09:39 Nasal Cannula 2 Laboratory Results Short CBC 12/06/22 Range/Units 04:44 WBC 5.82 (4.8-10.8) K/ul Hgb 8.5 L (12.0-16.0) g/dl Hct 24.7 L (34.1-44.9) % Plt Count 140 (130-400) K/uL BMP 12/06/22 04:44 Sodium 145 Potassium 2.9 L Chloride 100 Carbon Dioxide 34 H BUN 49 H Creatinine 3.37 H D Glucose 107 H Calcium 7.3 L Liver Function 12/06/22 Range/Units 04:44 Total Bilirubin 0.5 (0.2-1.0) mg/dl AST 131 H (13-39) U/L ALT 301 H (7-52) U/L Alkaline Phosphatase 104 (34-104) U/L Albumin 3.1 L (3.4-5.0) gm/dl Diagnostic Findings Brain MRI 12/05/22 00:00 MRI OF THE BRAIN WITHOUT IV CONTRAST CLINICAL HISTORY: Stroke COMPARISON STUDY: CT of the brain dated 12/05/2022. TECHNIQUE: MRI of the brain was performed utilizing various T1 and T2-weighted sequences in the axial, sagittal, and coronal planes. IV contrast was not administered for this examination. FINDINGS: Brain parenchyma: There is a large region of restricted diffusion identified in the right occipital lobe consistent with acute to subacute ischemia. There are also small foci of restricted diffusion in the right thalamus, the right temporal lobe, and the right cerebellar hemisphere. There are also foci of restricted diffusion seen within the high right frontal parietal cortex, as well as the high left parietal cortex. There is also a punctate focus of restricted diffusion in the left occipital cortex. There is mild surrounding edema. There is subarachnoid hemorrhage identified along right posterior parieto-occipital sulci. This is best seen on coronal FLAIR image #23. No midline shift is seen. No extra-axial fluid collection is seen. There is age-related involutional change noting mild subcortical and periventricular microangiopathic disease. The cerebellar tonsils are normal in configuration. Ventricles, sulci, and cisterns: Prominent secondary to involutional change. Pituitary and sella: Unremarkable. Intracranial vasculature: Normal flow voids are maintained at the skull base. Orbits: The bony orbits are grossly intact. Orbital contents are normal in appearance. Sinuses and mastoids: There are large mastoid effusions. There is trace mucosal thickening left sphenoid sinus. Mild mucosal thickening is also noted within the frontal sinuses and the right anterior ethmoid sinuses. Calvarium: Unremarkable. Cervical cord: Partially visualized cervical spinal cord is normal in morphology and signal intensity. IMPRESSION: 1. There are numerous foci of restricted diffusion seen bilaterally, right greater than left. This is consistent with acute to subacute ischemia, it is greatest within the right occipital lobe. Bilateral findings suggests an embolic phenomenon. 2. There is subarachnoid hemorrhage identified along the right posterior parieto-occipital sulci. 3. There is no midline shift. 4. Large mastoid effusions ACT 112: Negative or not required by law. Electronically signed by: Ho Roy M.D. 12/06/2022 7:10 AM Head MRA 12/05/22 21:23 MRA OF THE INTRACRANIAL CIRCULATION WITHOUT CONTRAST CLINICAL HISTORY: ?Septic emboli COMPARISON STUDY: Head CT December 05, 2022. TECHNIQUE: Utilizing a 1.5 Katheryn magnet and 3-D [id number] technique, unenhanced MRA of the intracranial circulation was obtained. FINDINGS: Please note that the MRI of the brain will be reported separately. M ultiple infarcts and subarachnoid hemorrhage are better depicted on that examination. The bilateral M1, M2, A1 and A2 segments are patent. There is no central occlusion within the anterior circulation. There is no intracranial aneurysm. There is trace flow within the right vertebral artery which is diminutive. This could be congenital. Left vertebral artery is dominant. Intracranial portion is patent. Basilar artery is patent. There is persistence of the left posterior cerebral artery. Bilateral mastoid fluid. IMPRESSION: No central vessel occlusion. No intracranial aneurysm. ACT 112: Negative or not required by law. Electronically signed by: Hakeem Rico M.D. 12/06/2022 7:[address] 12/06/22 10:50 CT OF THE HEAD WITHOUT CONTRAST CLINICAL HISTORY: f/u SAH,CVA COMPARISON STUDY: Head CT December 052022. MRI of the brain December 05, 2022. CT DOSE: 788.63 mGycm TECHNIQUE: Helical axial images of the head were obtained without IV contrast. Automated exposure control was utilized for the study. A dose lowering technique was utilized adhering to the principles of ALARA. FINDINGS: Minimal acute subarachnoid hemorrhage overlying the right parieto- occipital region remains unchanged since head CT of December 05, 2022. No new sites of hemorrhage are present. Multiple acute to subacute infarcts are also unchanged appearance. The largest is within the right occipital lobe. The appearance of the brain is unchanged. Ventricular system is stable. Basal cisterns are patent. There are no extra axial collections. Bilateral mastoid air cells are opacified, as before. There is no calvarial fracture. IMPRESSION: No significant change in appearance of the brain. Redemonstration of multiple acute to subacute infarcts and trace acute subarachnoid hemorrhage overlying the right parieto-occipital region. ACT 112: Negative or not required by law. Electronically signed by: Hakeem Rico M.D. 12/06/2022 12:29 PM Medications Administered Current Inpatient Medications Acetaminophen (Acetaminophen 325 Mg Tab) 650 mg PO Q6H PRN PRN Reason: pain, mild Stop: 01/04/23 11:55 Albuterol (Albut/Ipratrop 3mg/0.5mg Neb 3 Ml Vial) 3 ml INH Q4H PRN PRN Reason: Dyspnea Stop: 01/01/23 02:02 Anastrozole (Anastrozole 1 Mg Tab) 1 mg PO QAM VI Stop: 01/04/23 11:55 Last Admin: 12/06/22 08:31 Dose: 1 mg Aspirin (Aspirin 81 Mg Chew) 81 mg OG QAM [facility] Stop: 01/03/23 08:59 Last Admin: 12/05/22 08:50 Dose: 81 mg Clonazepam (Clonazepam 1 Mg Tab) 1 mg PO TID VI Stop: 01/04/23 13:59 Last Admin: 12/05/22 21:46 Dose: Not Given Dextrose (Dextrose 50% 50 Ml Syringe) 25 - 50 ml IV UD PRN; Protocol PRN Reason: Hypoglycemia Protocol Stop: 01/01/23 02:37 Glucagon (Glucagon For Inj 1 Mg Vial) 1 mg SQ UD PRN; Protocol PRN Reason: Hypoglycemia Protocol Stop: 01/01/23 02:37 Glucose (Glucose 40% Gel 15 Gm Tube) 15 - 30 gm PO UD PRN; Protocol PRN Reason: Hypoglycemia Protocol Stop: 01/01/23 02:37 Glucose (Glucose 10 Tab/Tube) 4 - 8 tab PO UD PRN; Protocol PRN Reason: Hypoglycemia Treatment Stop: 01/01/23 02:37 Hydromorphone HCl (Hydromorphone Hcl 2 Mg Tab) 4 mg PO Q4 PRN PRN Reason: Pain, Severe Stop: 12/19/22 11:55 Heparin Sodium/Dextrose (Heparin Sodium/Dextrose) 25,000 units in 500 mls @ 0 mls/hr IV .Q0M VI; Protocol Stop: 01/01/23 09:29 Last Titration: 12/06/22 06:59 Dose: 0 units/hr, 0 mls/hr Thiamine HCl 200 mg/ Sodium (Chloride) 52 mls @ 210 mls/hr IV DAILY VI Stop: 01/04/23 08:59 Last Infusion: 12/06/22 10:46 Dose: Infused Folic Acid 1 mg/ Syringe 10 mls @ 5 mls/min IV DAILY [facility] Stop: 01/01/23 13:59 Last Admin: 12/06/22 08:33 Dose: 5 mls/min Hydrocortisone Sodium (Succinate 50 mg/ Syringe) 1 mls @ 4 mls/min IV Q24H [facility] Stop: 12/07/22 09:16 Last Admin: 12/06/22 08:33 Dose: 4 mls/min Cefazolin Sodium (Ancef 1000mg) 1,000 mg in 7.5 mls @ 2.5 mls/min IV Q8H [facility] Stop: 12/12/22 11:59 Last Admin: 12/06/22 11:38 Dose: 2.5 mls/min Amiodarone HCl/Dextrose (Nexterone / D5w) 360 mg in 200 mls @ 16.667 mls/hr IV .Q12H [facility] Stop: 01/04/23 13:59 Last Admin: 12/06/22 13:13 Dose: 0.5 mg/min, 16.7 mls/hr Lorazepam (Lorazepam 2 Mg/1 Ml Vial) 1 mg IV ONE PRN; Protocol PRN Reason: EtoH Withdrawal AWSS 6,7,8,9,10 Metoprolol Succinate (Metoprolol Succ 50mg Ext Rel Tab) 100 mg PO QAM [facility] Stop: 01/04/23 11:55 Last Admin: 12/06/22 08:31 Dose: 100 mg Metoprolol Tartrate (Metoprolol Tartrate 1 Mg/Ml Vial) 5 mg IV Q5M PRN PRN Reason: Tachycardia Miscellaneous (Carbohydrates For Hypoglycemia ) 15 - 30 gm PO UD PRN PRN Reason: Hypoglycemia Protocol Stop: 01/01/23 02:37 Miscellaneous (Pending Order: If Random Vancomycin Level Less Than 20....) 1 each N/A TODAY@0400 ONE Stop: 12/07/22 04:01 Miscellaneous Information (Vancomycin Consult Active) 1 each N/A UD PRN PRN Reason: Consult Stop: 01/01/23 18:23 Pantoprazole Sodium (Pantoprazole 40 Mg Tab) 40 mg PO QAM [facility] Stop: 01/05/23 08:59 Last Admin: 12/06/22 08:31 Dose: 40 mg Rosuvastatin Calcium (Rosuvastatin Calcium 5 Mg Tab) 5 mg PO DAILY [facility] Stop: 01/05/23 08:59 Last Admin: 12/06/22 08:31 Dose: 5 mg Venlafaxine HCl (Venlafaxine Hcl Xr 75 Mg Capxr) 75 mg PO QAM [facility] Stop: 01/04/23 11:55 Last Admin: 12/06/22 08:31 Dose: 75 mg Venlafaxine HCl (Venlafaxine Hcl Xr 150 Mg Capxr) 150 mg PO QAM VI Stop: 01/04/23 11:55 Last Admin: 12/06/22 08:31 Dose: 150 mg (1) Right lower lobe pneumonia Pneumonia type: due to unspecified organism Qualified Code(s): J18.9 - Pneumonia, unspecified organism (2) Acute renal failure Acute renal failure type: unspecified Qualified Code(s): N17.9 - Acute kidney failure, unspecified
[2022-12-06] MEDS: ALBUT/IPRATROP 3MG/0.5MG NEB 3 ML VIAL INH PRN ×2 (15:42→23:15)
--- NOTE | 2022-12-06 19:29 | Hospitalist Progress Note ---
Date of Service December 06, 2022 Assessment & Plan (1) Subarachnoid hemorrhage: Plan: With trace subarachnoid hemorrhage noted on brain MRI on the night of 12/05 after having multiple embolic strokes in the setting of being on heparin drip for LV thrombus Hold heparin drip, hold aspirin Check repeat CT head noncontrast in the morning and 12/06-unchanged Plan repeat head CT again in the morning of 12/07 Accepted in transfer to [facility] in case of need for neurosurgery (2) Embolic stroke: Plan: With multiple bilateral embolic strokes seen on MRI brain With right-sided weakness, some decreased mentation, left-sided droop of face Likely secondary to thromboembolism from LV thrombus Holding heparin drip unfortunately due to subarachnoid hemorrhage as above Appreciate neurology consultation MRA head with diminutive flow in right vertebral artery but otherwise no large vessel occlusion. MRA neck not performed as majority of strokes and posterior circulation but could consider carotid Doppler. Only imaging for the recommended by neurology at this time is repeat noncontrast head CT to monitor SAH Echocardiogram performed the day of stroke shows known LV thrombus Continue to monitor on telemetry for recurrent atrial fibrillation Continue neurochecks -Keep n.p.o. for now, start maintenance IV fluids with Normosol-R at 50 MLS per hour -Permissive hypertension (3) Septic shock: Plan: source -right-sided pneumonia and bacteremia With septicemia-growing Staphylococcus epidermidis in 4/4 bottles resistant to oxacillin but sensitive to Vanco. Could be contaminant as per infectious disease as does not have any indwelling prosthetics or medical devices. However given immune compromised state, will continue to treat as if she has infective endocarditis Has pneumonia with sputum culture MSSA Possibility the apical thrombus also could have vegetation Blood pressures are improved, now weaned off vasopressors and weaning off IV hydrocortisone With acute kidney injury, shock liver, encephalopathy, respiratory failure- multiorgan system failure-- all improving -ID recommends continuing cefazolin for the MSSA pneumonia for 7-10 days. Can broaden coverage to ceftriaxone to cover aspiration pneumonia if not improving from a pulmonary standpoint -continuing IV vancomycin for bacteremia and infective endocarditis-consider ALIDA -follow repeat blood cultures on 12/03-NGTD -Appreciate infectious disease consultation -follow CBC, CMP (4) Acute renal failure: Plan: severe, with resulting hyperkalemia Initially with oliguria now resolved after giving IV Lasix on 12/03 Creatinine peaked at 4.6 and now continues to improve each day down to 3.3 today Hyperkalemia now resolved after isotonic bicarbonate drip and actually with hypokalemia-replacing cautiously likely due to sepsis-associated ATN, rhabdomyolysis, in the setting of ARB therapy nephrology consulted for assistance-have now signed off Follow BMP in the morning Follow UOP Maintain Lizarraga catheter for now Holding home losartan (5) Left ventricular apical thrombus: Plan: large LV thrombus; vegetation cannot be excluded-on antibiotics Had rapid atrial fibrillation intermittently Was on heparin drip with plans to eventually switch to DOAC x3 months minimum, however heparin drip now on hold for subarachnoid hemorrhage Cardiology consult appreciated-LV thrombus could be due to low flow state given poor EF of 25-30% -Repeat echocardiogram on 12/05 shows improvement in EF to 40-45%, persistent large left apical thrombus Because cardiomyopathy could be secondary to NSTEMI given elevated troponin, cardiology recommends starting aspirin low-dose daily-now on hold due to SAH (6) Acute metabolic encephalopathy: Plan: numerous causes - sepsis/septic shock, ARNALDO, acute resp failure, benzodiazepine or alcohol withdrawal, etc Much improved despite multiple embolic strokes -We will hold scheduled clonazepam from home as monitoring mentation with subarachnoid hemorrhage (7) Acute respiratory failure with hypoxia: Plan: multi-organ failure with pneumonia, bacteremia, ARNALDO, etc all to blame appreciate vent management by pulmonary/critical care-now extubated since 12/04 Continue supplemental O2 and wean off as able to treating for PNA give Duonebs prn (8) Rhabdomyolysis: Plan: 2nd to fall/laying on ground at home CPK is only mildly elevated - doubt cause of ARNALDO repeat CPK about the same in the 800s (9) Hypocalcemia: Plan: severe but improving with replacement 2nd to Xgeva most likelyAs well as from low magnesium 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 calcium when able to (10) Right lower lobe pneumonia: Plan: son reports he found vomit on his mother at home prior to EMS arrival thus - aspiration pneumonia? MRSA swab negative With MSSA pneumonia as above Treating with cefazolin Pulmonary toilet (11) Elevated troponin: Plan: cannot rule out ACS/NSTEMI in light of echo findings with reduced EF and wall motion abnormalities vs myocardial demand ischemia remains on heparin drip for apical thrombus Troponin trended downward after peaking at 3389 No ischemic changes on ECG Repeat echocardiogram with no wall motion abnormalities and improving EF as above Started aspirin 81 mg daily but now on hold for SAH (12) History of bilateral breast cancer: Plan: initial dx early with subsequent recurrence and metastatic disease remains on anastrazole and Ibrance-Ibrance should remain on hold due to its immunosuppressive effects continue anastrozole once taking p.o. Follows with Dr. Woodard of Oncology-discussed her care with oncology on 12/05 Follows with Palliative Med as outpt-currently on po dialudid about bid prn at home-here on IV dilaudid scheduled but will convert to p.o. Dilaudid (13) Regular alcohol consumption: Plan: continue thiamine/folate pt will not admit to exact amount of EtOH she drinks daily watch for symptoms/signs of withdrawal -AWSS Will ordered As needed Ativan hold home clonazepam 1 mg p.o. 3 times daily-confirmed fills 90 tablets monthly in PDMP website-holding for now to monitor mentation with SAH (14) Cardiomyopathy: Plan: NEW, as seen on echo EF <30% initially Most likely nonischemic as EF has now improved to 40-45% Cardiology evaluation appreciated-most likely secondary to stress-induced cardiomyopathy continue metoprolol (15) Type II diabetes mellitus: Plan: previous high a1c's several years ago now a1c <6% resolved but check glucose q6h with SAH and multiple strokes to avoid hyper or hypoglycemia Novolog insulin prn (16) Macrocytic anemia: Plan: likely 2nd to etoh consumption, but Ibrance can also cause macrocytosis cannot rule out B12/folate/copper deficiencies, etc B12 level low at 259 1 year ago and folate level quite low at 2 last year as well Hemoglobin fairly stable today at 8.8 but overall lower than baseline of 11 a couple of months ago serial CBC Continue folic acid 1 mg IV once daily -B12 level acceptable Fe levels low at 11% transferrin sat-plan to replace with po iron once taking po No sense in checking folate level as she has been receiving IV folic acid (17) Shock liver: Plan: LFT pattern c/w acute liver injury/shock liver-now improving serial LFTs, INR Blood pressures are now improved, expect this to resolve (18) Hypomagnesemia: Plan: replaced resolved likely contributed to prolonged QTc (19) Prolonged QT interval: Plan: 2nd to low mag, low calcium telemetry monitoring replace electrolytes (20) Hypokalemia: Plan: Low again today Replace with IV potassium chloride today x 60 meq Follow BMP magnesium in the morning (21) Rapid atrial fibrillation: Plan: As above, had a few hours of rapid atrial fibrillation earlier in her stay, resolved on IV amiodarone Then had 6 more hours of rapid afib on 12/06 and then spontaneously converted while on amiodarone gtt Now with embolic strokes continue IV amiodarone and eventually switch to p.o. amiodarone -holding anticoagulation for now in setting of SAH Cardiology consultation appreciated Plan DVT prophylaxis-holding Heparin drip; SCDs Disposition-remains in PCU, awaiting bed at [facility], accepting [facility] hospitalyician is Dr. Askew Admission and Anticipated Discharge Date Admission Date: December 01, 2022 Subjective Patient unfortunately developed stroke symptoms overnight and was found to have multiple bilateral embolic appearing strokes with the largest in the right HEALTH AIDE territory. She developed facial droop, right-sided weakness and dysarthria with decreased mentation. CT scan showed strokes. MRI also confirmed strokes and showed a trace subarachnoid hemorrhage. Heparin drip was placed on hold. She is now kept n.p.o. She has been accepted in transfer to [place] but no bed is available throughout the day. Telemetry remains with normal sinus rhythm but did have 6 hours of atrial fibrillation yesterday Patient is drowsy but wakes up easily and answers all questions. She follows all commands. She denies headache or pain. Feels a little bit short of breath, denies chest pains. I discussed her care with infectious disease. Review of Systems Review of Systems: All systems reviewed & are unremarkable except as noted in HPI & below Physical Exam Constitutional: WD/WN, vitals as above Eyes: + anicteric sclerae, PERRL (Pupils large but reactive equally) and EOM intact bilaterally; no anisocoria and no nystagmus ENMT: Mouth: + oropharynx abnormality (ETT in place) Neck: trachea midline, no thyromegaly Respiratory: normal respiratory effort Auscultation: + diminished lung sounds (At the bases bilaterally), + rhonchi (Bilateral) and + wheezes (Bilateral); no crackles Cardiovascular: RRR, no murmur, no edema Gastrointestinal (Abdomen): normal bowel sounds, soft, nontender, no hepatosplenomegaly Musculoskeletal: Extremities: extremities normal to inspection; no cyanosis and no clubbing Skin: no rashes, warm and dry Neurologic: awake; + CN's not intact (Intact except slight left facial droop and tongue deviation to the right) Speech / Cognition: normal speech Motor/Sensory: + pronator drift (RUE and RLE); no tremor Also with some slight ptosis of the left lid which she says is chronic 4/5 strength in RUE and RLE, otherwise 5/5 throughout Psychiatric: Orientation: alert, oriented to person, oriented to place and cooperative Genitourinary: Lizarraga catheter in place Lymphatic: no lymphedema Results & Data Results & Data ([facility]) Vital Signs (Past 12 Hours) Vital Signs Temp Pulse Pulse Resp BP BP BP 12/06/22 19:15 36.6 C 64 18 151/82 H 12/06/22 16:00 64 12/06/22 15:43 65 18 12/06/22 15:22 36.6 C 65 20 152/99 H 12/06/22 11:00 59 L 23 12/06/22 10:00 60 22 12/06/22 09:50 152/95 H 12/06/22 09:50 61 21 12/06/22 09:00 62 22 12/06/22 08:00 62 21 12/06/22 08:00 165/89 H 12/06/22 07:43 163/91 H 12/06/22 07:43 61 21 12/06/22 08:00 36.8 C 12/06/22 08:00 61 12/06/22 09:39 Pulse Ox O2 Del Method O2 Flow Rate 12/06/22 19:15 92 Nasal Cannula 2 12/06/22 16:00 12/06/22 15:43 94 Nasal Cannula 2 12/06/22 15:22 94 Nasal Cannula 2 12/06/22 11:00 96 12/06/22 10:00 97 12/06/22 09:50 12/06/22 09:50 90 12/06/22 09:00 97 12/06/22 08:00 97 12/06/22 08:00 12/06/22 07:43 12/06/22 07:43 98 12/06/22 08:00 12/06/22 08:00 12/06/22 09:39 Nasal Cannula 2 Laboratory Results 12/06/22 12/06/22 12/06/22 Range/Units 04:44 04:44 04:44 WBC (4.8-10.8) K/ul RBC (3.93-5.22) M/uL Hgb (12.0-16.0) g/dl Hct (34.1-44.9) % MCV (80.0-100.0) fL MCH (25.0-34.0) pg MCHC (32.0-36.0) g/dL RDW Std Deviation (36.4-46.3) fL RDW Coeff of Cheri (11.5-14.5) % Plt Count (130-400) K/uL MPV (9.4-12.3) fL Immature Gran % (Auto) % Neut % (Auto) % Lymph % (Auto) % Marinette % (Auto) % Eos % (Auto) % Baso % (Auto) % Neut # (Auto) (1.4-6.5) K/uL Lymph # (Auto) (1.2-3.4) K/uL Marinette # (Auto) (0.24-0.82) K/uL Eos # (Auto) (0-0.50) K/uL Baso # (Auto) (0-0.2) K/uL Immature Gran # (Auto) (0.00-0.02) K/uL Absolute Nucleated RBC (0-0) K/uL Nucleated RBC % (auto) % Toxic Vacuolation Polychromasia APTT (21.0-31.0) Seconds PTT Ratio Sodium (136-145) mmol/L Potassium (3.5-5.1) mmol/L Chloride (98-107) mmol/L Carbon Dioxide (21-32) mmol/L Anion Gap (3-11) BUN (6-23) mg/dl Creatinine (0.6-1.2) mg/dl Est Cr Clr Drug Dosing ml/min Est GFR ( Amer) ml/min Est GFR (Non-Af Amer) ml/min BUN/Creatinine Ratio (10-20) Glucose (70-99(Fasting)) mg/dl Calcium (8.5-10.1) mg/dl Ionized Calcium 0.89 L (1.12-1.32) mmol/L Phosphorus (2.5-4.9) mg/dl Magnesium (1.7-2.4) mg/dl Iron 29 L (35-150) mcg/dl TIBC 274 (250-450) mcg/dl Unsaturated IBC 245 (155-355) mcg/dl Transferrin % Sat 11 L (15-50) % Ferritin (8-388) ng/ml Total Bilirubin (0.2-1.0) mg/dl AST (13-39) U/L ALT (7-52) U/L Alkaline Phosphatase (34-104) U/L Total Protein (6.0-8.3) gm/dl Albumin (3.4-5.0) gm/dl Globulin (2.5-4.0) gm/dl Albumin/Globulin Ratio (0.9-2) Vitamin B12 1223 H (180-914) pg/ml 12/06/22 12/06/22 12/06/22 Range/Units 04:44 04:44 04:44 WBC 5.82 (4.8-10.8) K/ul RBC 2.21 L (3.93-5.22) M/uL Hgb 8.5 L (12.0-16.0) g/dl Hct 24.7 L (34.1-44.9) % MCV 111.8 H (80.0-100.0) fL MCH 38.5 H (25.0-34.0) pg MCHC 34.4 (32.0-36.0) g/dL RDW Std Deviation 61.2 H (36.4-46.3) fL RDW Coeff of Cheri 15.2 H (11.5-14.5) % Plt Count 140 (130-400) K/uL MPV 11.0 (9.4-12.3) fL Immature Gran % (Auto) 1.0 % Neut % (Auto) 93.2 % Lymph % (Auto) 2.4 % Marinette % (Auto) 3.4 % Eos % (Auto) 0.0 % Baso % (Auto) 0.0 % Neut # (Auto) 5.42 (1.4-6.5) K/uL Lymph # (Auto) 0.14 L (1.2-3.4) K/uL Marinette # (Auto) 0.20 L (0.24-0.82) K/uL Eos # (Auto) 0.00 (0-0.50) K/uL Baso # (Auto) 0.00 (0-0.2) K/uL Immature Gran # (Auto) 0.06 H (0.00-0.02) K/uL Absolute Nucleated RBC 0.04 H (0-0) K/uL Nucleated RBC % (auto) 0.7 % Toxic Vacuolation 1+ Polychromasia 1+ APTT 23.8 (21.0-31.0) Seconds PTT Ratio 0.9 Sodium 145 (136-145) mmol/L Potassium 2.9 L (3.5-5.1) mmol/L Chloride 100 (98-107) mmol/L Carbon Dioxide 34 H (21-32) mmol/L Anion Gap 11 (3-11) BUN 49 H (6-23) mg/dl Creatinine 3.37 H D (0.6-1.2) mg/dl Est Cr Clr Drug Dosing 15.9 ml/min Est GFR ( Amer) 15.2 ml/min Est GFR (Non-Af Amer) 13.1 ml/min BUN/Creatinine Ratio 14.5 (10-20) Glucose 107 H (70-99(Fasting)) mg/dl Calcium 7.3 L (8.5-10.1) mg/dl Ionized Calcium (1.12-1.32) mmol/L Phosphorus 4.6 D (2.5-4.9) mg/dl Magnesium 1.9 (1.7-2.4) mg/dl Iron (35-150) mcg/dl TIBC (250-450) mcg/dl Unsaturated IBC (155-355) mcg/dl Transferrin % Sat (15-50) % Ferritin 625.7 H (8-388) ng/ml Total Bilirubin 0.5 (0.2-1.0) mg/dl AST 131 H (13-39) U/L ALT 301 H (7-52) U/L Alkaline Phosphatase 104 (34-104) U/L Total Protein 6.0 (6.0-8.3) gm/dl Albumin 3.1 L (3.4-5.0) gm/dl Globulin 2.9 (2.5-4.0) gm/dl Albumin/Globulin Ratio 1.1 (0.9-2) Vitamin B12 (180-914) pg/ml PG Care Time/CCT Total # of Minutes Spent Total Time Spent with Patient: Total time spent is greater than 50% in coordination of care (as documented) at patient's floor/unit and/or counseling patient: Coding Level of Care Code 42353 SUB INP/OBS CARE 3/50MIN Diagnoses Subarachnoid hemorrhage I60.9 Embolic stroke I63.9 Septic shock A41.9; R65.21 Acute renal failure N17.9 Acute renal failure type: unspecified Left ventricular apical thrombus I51.3 Acute metabolic encephalopathy G93.41 Acute respiratory failure with hypoxia J96.01 Rhabdomyolysis M62.82 Rhabdomyolysis type: non-traumatic Hypocalcemia E83.51 Right lower lobe pneumonia J18.9 Pneumonia type: due to unspecified organism Elevated troponin R77.8 History of bilateral breast cancer Z85.3 Regular alcohol consumption Z78.9 Cardiomyopathy I42.9 Type II diabetes mellitus E11.9 Macrocytic anemia D53.9 Shock liver K72.00 Hypomagnesemia E83.42 Prolonged QT interval R94.31 Hypokalemia E87.6 Rapid atrial fibrillation I48.91 (1) Acute renal failure Acute renal failure type: unspecified Qualified Code(s): N17.9 - Acute kidney failure, unspecified (2) Rhabdomyolysis Rhabdomyolysis type: non-traumatic Qualified Code(s): M62.82 - Rhabdomyolysis (3) Right lower lobe pneumonia Pneumonia type: due to unspecified organism Qualified Code(s): J18.9 - Pneumonia, unspecified organism
[2022-12-06] MEDS: PHENYLEPHRINE HCL 20 MG in DEXTROSE 5% 500 ML IV SCH (20:26)
[2022-12-07] MEDS ORDERED: DEXTROSE 50% 50 ML SYRINGE IV PRN (00:19)
[2022-12-07] MEDS ORDERED: CARBOHYDRATES FOR HYPOGLYCEMIA PO PRN (00:19)
[2022-12-07] MEDS ORDERED: NORMOSOL-R 1,000 ML IV SCH (00:30)
[2022-12-07] MEDS: AMIODARONE / D5W 360 MG/200 ML BAG IV SCH ×2 (00:55→13:06)
[2022-12-07] MEDS: ALBUT/IPRATROP 3MG/0.5MG NEB 3 ML VIAL INH PRN ×2 (03:36→08:04)
[2022-12-07] MEDS ORDERED: [UNRECOGNIZED DRUG - REMARK] ONE (04:00)
[2022-12-07] MEDS: ceFAZolin 1000MG 1,000 MG/7.5 ML SYR IV SCH ×2 (04:30→12:20)
[2022-12-07 04:38] LABS: Eosinophils # (auto) 0.02 K/uL (0-0.50); Eosinophils % (auto) 0.3 %; Hematocrit (blood only) 26.2 % (34.1-44.9); Hemoglobin 8.8 g/dl (12.0-16.0); Immature Granulocytes # (auto) 0.07 K/uL (0.00-0.02); Immature Granulocytes % (auto) 1.1 %; Lymphocytes # (auto) 0.45 K/uL (1.2-3.4); Lymphocytes % (auto) 6.8 %; Mean Corpuscular Hemoglobin 37.8 pg (25.0-34.0); Mean Corpuscular Hgb Conc 33.6 g/dL (32.0-36.0); Mean Corpuscular Volume 112.4 fL (80.0-100.0); Mean Platelet Volume 11.1 fL (9.4-12.3); Monocytes # (auto) 0.26 K/uL (0.24-0.82); Monocytes % (auto) 3.9 %; Neutrophils # (auto) 5.82 K/uL (1.4-6.5); Neutrophils % (auto) 87.9 %; Nucleated RBC # (auto) 0.02 K/uL (0-0); Nucleated RBC % (auto) 0.3 %; Platelet Count 136 K/uL (130-400); RDW Coefficient of Variation 15.7 % (11.5-14.5); RDW Standard Deviation 63.8 fL (36.4-46.3); Red Blood Count 2.33 M/uL (3.93-5.22); White Blood Count 6.62 K/ul (4.8-10.8)
[2022-12-07 04:49] LABS: INR 1.1 (0.9-1.1); Prothrombin Time 11.6 Seconds (9.0-12.0)
[2022-12-07 04:59] LABS: Macrocytosis Present; Polychromasia 1+
[2022-12-07 05:07] LABS: Albumin Globulin Ratio 1.1 (0.9-2); Albumin Level 3.4 gm/dl (3.4-5.0); BUN Creatinine Ratio 16.1 (10-20); Bilirubin,Total 0.5 mg/dl (0.2-1.0); Calcium 7.2 mg/dl (8.5-10.1); Creatinine Clr Calc Pharmacy 17.4 ml/min; Est GFR (African American) 17.2 ml/min; Est GFR (Non-African American) 14.9 ml/min; Magnesium 1.9 mg/dl (1.7-2.4); Phosphorus 3.5 mg/dl (2.5-4.9); Total Protein 6.4 gm/dl (6.0-8.3)
[2022-12-07] MEDS ORDERED: VANCOMYCIN HCL 750 MG in SODIUM CHLORIDE 0.9% 250 ML IV ONE (05:45)
[2022-12-07] MEDS: INSULIN ASPART PER UNIT SC SCH ×3 (06:23→18:26)
[2022-12-07] MEDS: THIAMINE HCL 200 MG in SODIUM CHLORIDE 0.9% 50 ML IV SCH (07:53)
[2022-12-07] MEDS: HYDROCORTISONE SOD 50 MG in SYRINGE 0 ML IV SCH (07:53)
[2022-12-07] MEDS: FOLIC ACID 1 MG in SYRINGE 9.8 ML IV SCH (07:53)
[2022-12-07] MEDS ORDERED: FUROSEMIDE 40 MG/4 ML VIAL IV ONE (08:18)
[2022-12-07] MEDS ORDERED: LORazepam 2 MG/1 ML VIAL IV STA (08:20)
[2022-12-07] MEDS ORDERED: MAGNESIUM SULFATE / D5W 1 GM/100 ML BAG IV ONE (08:22)
--- NOTE | 2022-12-07 08:56 | XRay Report ---
XR chest 1V portable CLINICAL HISTORY: hypoxia,respiratory distress,pneumonia TECHNIQUE: Single frontal radiograph of the chest was obtained. Comparison: Comparison is made to chest radiograph 12/05/2022 FINDINGS: No lines and tubes are seen. Cardiomegaly is noted. There is prominence and cephalization of the vasc ulature with Dakota B lines seen. Multiple airspace opacities are seen. No evidence of pleural effusi on or pneumothorax. IMPRESSION: 1. Cardiomegaly and moderate pulmonary edema. This represents an increase from prior exam. 2. Multifocal airspace opacities may represent atelectasis, pneumonia, aspiration, and/or alveolar e bhavya. ACT 112: Negative or not required by law. Electronically signed by: Joseph Longoria M.D. 12/07/2022 8:54 AM
[2022-12-07] MEDS: POTASSIUM CHLORIDE / WTR 10 MEQ/100 ML PLCT IV SCH ×6 (09:07→14:30)
[2022-12-07] MEDS: ROSUVASTATIN CALCIUM 5 MG TAB PO SCH (09:59)
[2022-12-07] MEDS: PANTOprazole 40 MG TAB PO SCH (09:59)
[2022-12-07] MEDS: METOPROLOL SUCC 50MG EXT REL TAB PO SCH (09:59)
[2022-12-07] MEDS: VENLAFAXINE HCL XR 150 MG CAPXR PO SCH (09:59)
[2022-12-07] MEDS: VENLAFAXINE HCL XR 75 MG CAPXR PO SCH (09:59)
[2022-12-07] MEDS: ANASTROZOLE 1 MG TAB PO SCH (09:59)
[2022-12-07] MEDS ORDERED: LORazepam 2 MG/1 ML VIAL IV SCH ×2 (11:00→18:00)
--- NOTE | 2022-12-07 11:36 | Cardiology Progress Note ---
Date of Service December 07, 2022 Assessment & Plan (1) Atrial fibrillation with RVR: (2) Cardiomyopathy: (3) Left ventricular apical thrombus: (4) Anticoagulant long-term use: (5) Sinus bradycardia: Plan 1. Atrial fibrillation: She initially had a relatively brief episode of atrial fibrillation, lasting less than 5 hours, at a rate which was somewhat elevated. The next day she has had recurrence for about 7 and half hours with an elevated heart rate. I agree we should continue amiodarone, intravenous for the time being, I would switch to 200 mg orally twice a day when possible, that may keep her out of atrial fibrillation in the future. Anticoagulation as noted below. 2. Cardiomyopathy: It appears her cardiomyopathy is stress related and although her ejection fraction has not normalized it has improved considerably. Often this resolves quickly as patients improve. We can repeat the echocardiogram next week. 3. Left ventricular mass: Although conceivably this is not a thrombus, that seems the most likely. We can follow with echocardiography, it remains present on follow-up echocardiogram. 4. Anticoagulation: For the atrial fibrillation she should be on an anticoagulant, certainly her [id number] score would suggest it. If her left ventricular mass is a thrombus that would also be an indication for anticoagulation. As noted from neurology's note they recommend against anticoagulation, this is a very difficult situation where from the cardiac standpoint she should be on an anticoagulant and from the neurologic standpoint she should not. I will leave the decision up to the primary team. 5. 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 She does take metoprolol succinate at home and historically her heart rate has not been low, now however she is back on beta-blockade and her heart rate is acceptable in sinus rhythm. Today her heart rate is better, she may need something for rate control during atrial fibrillation (currently metoprolol) but at this point I would not consider a pacemaker. It appears that we will be able to control her heart rate adequately with medical therapy adjustments. Admission and Anticipated Discharge Date Admission Date: December 01, 2022 Subjective She is restless and a little bit disoriented currently, however she just got back from CT scanning and received Ativan and it may be from that. She does not specifically answer questions but is awake and moving. Physical Exam Physical Exam: Constitutional: Confused currently, in no clear distress. HEENT: Unremarkable Neck: No jugular venous distention, carotid pulses are normal and equal bilaterally without bruits. Pulmonary: Clear to auscultation bilaterally. Cardiac: Regular rhythm with no murmur, gallop or rub. Abdomen: Soft, nontender with normal bowel sounds. Extremities: No edema. Neurologic: No focal findings. Gait was not tested. Skin: No rash. Results & Data ([facility]) Vital Signs (Past 12 Hours) Vital Signs Temp Pulse Pulse Resp BP Pulse Ox Pulse Ox 12/07/22 10:56 36.4 C L 24 166/81 H 98 12/07/22 08:10 12/07/22 08:10 86 12/07/22 08:04 84 20 95 12/07/22 07:34 37.1 C 84 26 H 164/98 H 90 12/07/22 03:36 77 22 95 12/07/22 02:59 36.4 C L 74 18 158/93 H 93 12/07/22 00:19 93 12/07/22 00:00 72 12/06/22 23:35 72 O2 Del Method O2 Del Method O2 Flow Rate O2 Flow Rate 12/07/22 10:56 Oxymask 5 12/07/22 08:10 Oxymask 5 12/07/22 08:10 12/07/22 08:04 Oxymask 5 12/07/22 07:34 Oxymask 3.0 12/07/22 03:36 Nasal Cannula 2 12/07/22 02:59 Nasal Cannula 2 12/07/22 00:19 Room Air 2 12/07/22 00:00 12/06/22 23:35 Laboratory Results Cardiac Enzymes 12/07/22 Range/Units 04:24 AST 88 H (13-39) U/L Coagulation 12/07/22 Range/Units 04:24 PT 11.6 (9.0-12.0) Seconds CBC 12/07/22 Range/Units 04:24 WBC 6.62 (4.8-10.8) K/ul RBC 2.33 L (3.93-5.22) M/uL Hgb 8.8 L (12.0-16.0) g/dl Hct 26.2 L (34.1-44.9) % Plt Count 136 (130-400) K/uL Neut # (Auto) 5.82 (1.4-6.5) K/uL Lymph # (Auto) 0.45 L (1.2-3.4) K/uL Elliott # (Auto) 0.26 (0.24-0.82) K/uL Eos # (Auto) 0.02 (0-0.50) K/uL Baso # (Auto) 0.00 (0-0.2) K/uL Comprehensive Metabolic Panel 12/07/22 Range/Units 04:24 Sodium 146 H (136-145) mmol/L Potassium 3.0 L (3.5-5.1) mmol/L Chloride 101 (98-107) mmol/L Carbon Dioxide 33 H (21-32) mmol/L BUN 49 H (6-23) mg/dl Creatinine 3.04 H D (0.6-1.2) mg/dl Glucose 97 (70-99(Fasting)) mg/dl Calcium 7.2 L (8.5-10.1) mg/dl AST 88 H (13-39) U/L ALT 120 H (7-52) U/L Alkaline Phosphatase 100 (34-104) U/L Total Protein 6.4 (6.0-8.3) gm/dl Albumin 3.4 (3.4-5.0) gm/dl Intake and Output 12/06/22 12/07/22 12/07/22 22:59 06:59 14:59 Intake Total 100 / 1108.154 195.39 / 1108.154 995.333 / 995.333 Output Total 400 / 1200 300 / 1200 Balance -300 / -91.846 -104.61 / -91.846 995.333 / 995.333 Intake: IV 100 / 1108.154 195.39 / 1108.154 995.333 / 995.333 Amiodarone / D5w 360 mg In 200 195.39 / 299.487 ml @ 0.5 MG/MIN 16.667 mls/hr IV .Q12H VI Rx#:[id number] Magnesium Sulfate / D5w 1 gm In 100 / 100 100 ml @ 50 mls/hr IV ONE ONE Rx#:[id number] Normosol-R 1,000 ml @ 50 mls/hr 378.333 / 378.333 IV .Q20H VI Rx#:[id number] Potassium Chloride / Wtr 10 meq 100 / 596.667 200 / 200 In 100 ml @ 100 mls/hr IV Q1H VI Rx#:[id number] Thiamine HCl 200 mg In Sodium 52 / 52 Chloride 0.9% 50 ml @ 210 mls/ hr IV DAILY VI Rx#:[id number] Vancomycin HCl 750 mg In Sodium 265 / 265 Chloride 0.9% 250 ml @ 200 mls /hr IV ONE ONE Rx#:[id number] Output: Urine Amount (Catheter) 400 / 1200 300 / 1200 Lizarraga/Indwelling 400 / 1200 300 / 1200 Other: Other Intake Source NPO NPO Weight 79.9 kg Weight Measurement Method Built in [facility] Diagnostic Findings Telemetry: Sinus rhythm, heart rate gradually increasing over the last 24 hours but now in the mid 80s, no significant tachycardia. PG Care Time/CCT Total # of Minutes Spent Total Time Spent with Patient: Total time spent is greater than 50% in coordination of care (as documented) at patient's floor/unit and/or counseling patient: Coding Level of Care Code 65730 SUB INP/OBS CARE 3/50MIN Diagnoses Atrial fibrillation with RVR I48.91 Cardiomyopathy I42.9 Left ventricular apical thrombus I51.3 Anticoagulant long-term use Z79.01 Sinus bradycardia R00.1
[2022-12-07] MEDS ORDERED: HYDROmorphone INJ 0.5 MG/0.5 ML SYR IV SCH ×2 (12:15→21:00)
--- NOTE | 2022-12-07 12:20 | CT Scan Report ---
CT head/brain wo con CLINICAL HISTORY: f/u [facility] Technique: Contiguous axial CT images of the head were acquired from the base of the skull to the manny ericka without intravenous contrast administration. Images were viewed [facility] brain, [facility]. Automated dose lowering techniques and/or adjustment according to patient size were utilized for this exam. Comparison: Comparison is made to CT head 12/06/2022 Findings: Exam is limited by patient motion. Overall unchanged appearance of numerous acute to subacute infarct s in the right parieto-occipital brain with subarachnoid hemorrhage. No new hemorrhage is seen. No si gnificant midline shift or herniation is seen. Imaged portions of the paranasal sinuses and mastoid air cells are clear. The orbits appear normal. There are no acute fractures of the calvaria or scalp swelling. Impression: Interval stability of multiple acute to subacute infarct and trace acute subarachnoid hemorrhage in t he right parieto-occipital lobes. No new hemorrhage or infarct is seen. ACT 112: Negative or not required by law. Electronically signed by: Joseph Longoria M.D. 12/07/2022 12:18 PM
[2022-12-07] MEDS ORDERED: HYDROmorphone INJ 0.5 MG/0.5 ML SYR IV STA (12:33)
--- NOTE | 2022-12-07 13:48 | Pharmacy Report ---
Pharmacy PK ABX Note - Date of Service December 07, 2022 - Assessment and Plan Assessment * 72 year old F receiving VANCOMYCIN + cefazp;om for treatment of CoN staph bacteremia, possible infected LV thrombus, and MSSA PNA. Pharmacy is consulted to dose VANCOMYCIN. * Pertinent microbiologic data includes: negative MRSA Nasal Swab, 2 of 2 sets BLCXs from 12/01 growing CoNS (methicillin resistant), repeat BLCXs from 12/03 no growth to date, sputum cx growing MSSA * Day # 6 of antimicrobial therapy. * SCr remains elevated but continuing to downtrend Plan Vancomycin * Random level of 19.9 mcg/mL at 0424 today * Will re-dose with vanco 750 mg IV x 1 * Repeat random level 12/08/22 AM Pharmacy will continue to follow and will adjust dose/frequency as necessary. Thank you.
[2022-12-07] MEDS ORDERED: STAT IV STA (15:20)
[2022-12-07] MEDS ORDERED: CALCIUM GLUCONATE 10% 1,000 MG in DEXTROSE 5% 50 ML IV ONE (15:30)
[2022-12-07] MEDS ORDERED: METOPROLOL TARTRATE 1 MG/ML VIAL IV SCH (18:00)
[2022-12-07 19:08] LABS: BUN Creatinine Ratio 16.7 (10-20); Calcium 7.3 mg/dl (8.5-10.1); Creatinine Clr Calc Pharmacy 15.9 ml/min; Est GFR (African American) 15.6 ml/min; Est GFR (Non-African American) 13.5 ml/min; Magnesium 2.3 mg/dl (1.7-2.4); Phosphorus 5.4 mg/dl (2.5-4.9)
--- NOTE | 2022-12-08 06:48 | XCELERA ---
[id number]
--- NOTE | 2022-12-16 06:56 | Coding Query ---
PRESENT ON ADMISSION QUERY To promote full compliance with coding requirements relating to pateint care, physician participation is requested in all cases of retirement consultant uncertainty. Please assist us with the question(s) below: Please place an X within the parenthesis (x). The following diagnosis(es) listed in this patient's medical record require physician assistance to determine if they were present on admission (POA) or not. Please advise for each diagnosis whether it was present on admission, not present on admission, or if it was clinically undetermined. 1. Embolic Stroke ( ) Present On Admission (x ) Not Present On Admission ( ) Clinically Undetermined Thank you Hector Goldberg [facility] *Definition of the present on admission (POA)-Present on admission is defined as present at the time the order for inpatient admission occurs. Conditions that develop during an outpatient encounter prior to a written order for inpatient admission (including emergency department, observation, or outpatient surgery) are considered present on admission. AWILDAD
== END 2022-12-07 20:10 | disposition short-term general hospital (02) | DRG 871 ==
LOC: ED 21:53 → 1E 23:48 → SUATTDRO 23:48 → 1E 12-02 01:05 → 2S 12-06 15:02

== ENCOUNTER 2023-01-09 19:07 | Inpatient (IN) ==
[2023-01-09] MEDS ORDERED: SODIUM CHLORIDE 0.9% 1000ML 1,000 ML IV SCH ×2 (19:30→20:45)
[2023-01-09 20:07] LABS: Base Excess VBG -12.6 mEq/L; HCO3 VBG 18 mmol/L; Oxygen Saturation VBG < 60.0 %; PCO2 VBG 58 mmHg (38-50); PO2 VBG 26 mmHg; pH VBG 7.09 (7.36-7.41)
[2023-01-09 20:09] LABS: Basophils # (auto) 0.05 K/uL (0-0.2); Basophils % (auto) 0.3 %; Eosinophils # (auto) 0.06 K/uL (0-0.50); Eosinophils % (auto) 0.4 %; Hemoglobin 9.2 g/dl (12.0-16.0); Immature Granulocytes # (auto) 0.15 K/uL (0.01-0.20); Mean Corpuscular Hemoglobin 33.7 pg (25.0-34.0); Mean Corpuscular Hgb Conc 31.7 g/dL (32.0-36.0); Mean Corpuscular Volume 106.2 fL (80.0-100.0); Mean Platelet Volume 10.6 fL (9.4-12.4); Monocytes # (auto) 1.12 K/uL (0.11-0.59); Monocytes % (auto) 7.1 %; Neutrophils # (auto) 13.26 K/uL (1.40-6.50); Neutrophils % (auto) 84.2 %; Platelet Count 215 K/uL (130-400); RDW Coefficient of Variation 16.3 % (11.5-14.5); Red Blood Count 2.73 M/uL (4.20-5.40); White Blood Count 15.74 K/ul (4.8-10.8)
[2023-01-09 20:19] LABS: iSTAT Creatinine 5.9 mg/dl (0.6-1.3); iSTAT Hemoglobin 8.8 g/dl (12.0-16.0); iSTAT Ionized Calcium 1.03 mmol/l (1.12-1.32)
[2023-01-09 20:37] LABS: INR 3.6 (0.9-1.1); Partial Thromboplastin Ratio 1.6; Partial Thromboplastin Time 43.3 Seconds (21.0-31.0); Prothrombin Time 35.8 Seconds (9.0-12.0)
[2023-01-09 20:40] LABS: Alanine Aminotransferase 17 U/L (7-52); Albumin Level 3.8 gm/dl (3.4-5.0); Alkaline Phosphatase 60 U/L (34-104); Anion Gap 11 (3-11); Aspartate Aminotransferase 49 U/L (13-39); BUN Creatinine Ratio 14.3 (10-20); Bilirubin,Total 0.3 mg/dl (0.2-1.0); Blood Urea Nitrogen 78 mg/dl (6-23); Calcium 7.7 mg/dl (8.5-10.1); Carbon Dioxide 18 mmol/L (21-32); Chloride 109 mmol/L (98-107); Creatine Kinase 2856 U/L (26-192); Est GFR (African American) 8.5 ml/min; Est GFR (Non-African American) 7.3 ml/min; Glucose 117 mg/dl (70-99(Fasting)); Lipase 29 U/L (11-82); Magnesium 1.4 mg/dl (1.7-2.4); Potassium 4.7 mmol/L (3.5-5.1); Sodium 138 mmol/L (136-145); Total Protein 7.5 gm/dl (6.0-8.3); Troponin I High Sensitivity 70.3 pg/ml (0-14)
[2023-01-09] MEDS ORDERED: SODIUM CHLORIDE 0.9% 1000ML 1,000 ML IV ONE ×2 (20:42→21:04)
--- NOTE | 2023-01-09 20:42 | CT Scan Report ---
CT head/brain wo con CLINICAL HISTORY: 72 years-old Female with ams. Acutely altered mental status. TECHNIQUE: Multiple axial CT images of the head were obtained without contrast. A dose lowering tech nique was utilized adhering to the principles of ALARA. CT DOSE: 537.48 mGy.cm COMPARISON: Head CT 12/07/2022 FINDINGS: No acute intracranial hemorrhage, midline shift, intracranial mass, hydrocephalus, territorial ischem ia or abnormal extra-axial collection. Previously noted trace subarachnoid hemorrhage within the righ t cerebral hemisphere is not definitively seen on today's study. Evolving subacute infarcts of the ri ght cerebral hemisphere, notably within the right occipital lobe. Mild chronic microvascular ischemic disease. The calvarium is intact. Large right greater than left mastoid effusions with fluid also noted withi n the middle ear cavities, similar to prior. Paranasal sinuses are generally clear. IMPRESSION: 1. No acute intracranial abnormality. 2. Expected evolution of the subacute infarcts within the right cerebral hemisphere, largest within t he occipital lobe. 3. The previously noted trace subarachnoid hemorrhage of the right cerebral hemisphere is not definit ively seen on today's study. ACT 112: Negative or not required by law. The above report was generated using voice recognition software. It may contain grammatical, syntax o r spelling errors. Electronically signed by: Tico Vega M.D. 01/09/2023 8:39 PM
[2023-01-09] MEDS ORDERED: MAGNESIUM SULFATE / D5W 1 GM/100 ML BAG IV STA (21:00)
--- NOTE | 2023-01-09 21:00 | XRay Report ---
XR chest 1V portable HISTORY: 72 years-old Female Sepsis acute sepsis COMPARISON: Chest radiograph 12/07/2022 TECHNIQUE: AP view of the chest FINDINGS: Cardiac silhouette is enlarged. Hypoinflation with pulmonary vascular congestion. Left basilar opacit y, likely summation density. No pneumothorax, large pleural effusion or lobar airspace consolidation. Degenerative changes of the shoulders and spine. IMPRESSION: Cardiomegaly with hypoinflation. ACT 112: Negative or not required by law. The above report was generated using voice recognition software. It may contain grammatical, syntax o r spelling errors. Electronically signed by: Tico Vega M.D. 01/09/2023 8:58 PM
[2023-01-09] MEDS ORDERED: CEFEPIME 2,000 MG/20 ML VIAL IV STA (21:02)
[2023-01-09] MEDS ORDERED: metroNIDAZOLE 500 MG/100 ML BAG IV STA (21:03)
[2023-01-09] MEDS ORDERED: LINEZOLID 600 MG/300 ML D5W IV STA (21:03)
[2023-01-09 21:14] LABS: Appearance Urine Cloudy (Clear); Bilirubin Urine Negative (Negative); Blood Urine 2+ (Negative); Color Urine Yellow; Glucose Urine UA Negative (Negative); Ketones Urine Trace (Negative); Leukocyte Esterase Urine 2+ (Negative); Nitrite Urine Negative (Negative); Protein Urine 1+ (Negative); RBC Urine Automated 0-4 /hpf (0-4); Urobilinogen Urine Negative (Negative); WBC Urine Automated >30 /hpf (0-5)
--- NOTE | 2023-01-09 21:14 | Emergency Department Note ---
History of Present Illness General Chief complaint: Overdose (Accidental) Stated complaint: overdose Time Seen by Provider: 01/09/23 19:09 Source: EMS History of Present Illness Provider complaint: Altered mental status 72-year-old female presents emergency department for altered mental status. EMS reports that they think that the patient took an extra dose of her Dilaudid 8 mg p.o. tablets. Patient states she has a history of a stroke. She is having difficulty articulating her words. EMS reports that the patient is on Coumadin. Home Medications Medication Instructions Recorded Confirmed Type cholecalciferol (vitamin D3) 50 50 mcg PO QAM 01/06/22 01/09/23 History mcg (2,000 unit) capsule acetaminophen 325 mg tablet 650 mg PO Q6H PRN pain, mild 02/08/22 01/09/23 History anastrozole 1 mg tablet 1 mg PO QAM 02/08/22 01/09/23 History multivitamin with minerals 1 cap PO QAM 02/08/22 01/09/23 History losartan 100 mg tablet 100 mg PO QAM #90 tabs 05/30/22 01/09/23 Rx omeprazole 20 mg capsule,delayed 20 mg PO QAM #90 caps 07/23/22 01/09/23 Rx release Ibrance 1 dose PO DIRECTED 08/12/22 01/09/23 History calcium carbonate 600 mg-vitamin 1 tab PO QAM 08/12/22 01/09/23 History D3 10 mcg (400 unit) tablet (Calcium 600 + D(3)) hydromorphone 8 mg tablet 4 mg PO Q4 PRN Pain, Severe 08/12/22 01/09/23 History magnesium 250 mg tablet 250 mg PO DAILY 08/12/22 01/09/23 History venlafaxine 150 mg 150 mg PO QAM #90 caps 09/04/22 01/09/23 Rx capsule,extended release 24 hr rosuvastatin 5 mg tablet 5 mg PO DAILY #90 tabs 10/03/22 01/09/23 Rx clonazepam 1 mg tablet 1 mg PO TID #90 tabs 10/22/22 01/09/23 Rx venlafaxine 75 mg capsule,extended 75 mg PO QAM 12/01/22 01/09/23 History release 24 hr cephalexin 500 mg capsule 500 mg PO BID 01/09/23 01/09/23 History gabapentin 300 mg capsule 600 mg PO TID 01/09/23 01/09/23 History metoprolol succinate 50 mg 50 mg PO DAILY 01/09/23 01/09/23 History tablet,extended release 24 hr warfarin 5 mg tablet 5 mg PO QPM 01/09/23 01/09/23 History Allergies Allergy/AdvReac Type Severity Reaction Status Date / Time fentanyl AdvReac Severe Hallucinati Verified 01/09/23 21:28 on Past Med/Surg History Medical History Acute alteration in mental status Bilateral breast cancer [id number]--sx/chemo/radiation Breast cancer metastasized to bone 2021 Cancer related pain Case discussed with Dr. Miller/Renata Kelly Palliative med, who has been managing patient's complex cancer pain with Methadone 5mg TID + prn Dilaudid oral. it is noted that pt has h/o ETOH abuse and ?opioid misuse. Her son reportedly struggles with substance abuse and there have been several early requests for opioids, raising the concern someone else is taking her meds. 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/no center medical specialist Osteoarthritis Pain of right lower extremity Palliative care encounter Type II diabetes mellitus Vitamin D deficiency Surgical History H/O tubal ligation History of appendectomy History of section History of colonoscopy History of esophagogastroduodenoscopy (EGD) History of left breast biopsy malignant History of lumpectomy of both breasts x2 History of right breast biopsy malignant History of tooth extraction History of wisdom tooth extraction Hx laparoscopic cholecystectomy (08/13/22) Laparoscopic Cholecystectomy - Alexandro Alvarez, DO, FACS Status post correction of deviated nasal septum Family History Grandmother (Maternal) AAA (abdominal aortic aneurysm) Family history of diabetes mellitus Mother No problems noted. 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 Children do You have: 1 Feels Safe at Home: Yes Seatbelt Use: always Sunscreen Use: Yes Assistive Devices: None Physical Exam Vital Signs Vital Signs - 24 hr 01/09/23 19:20 01/09/23 19:01 01/09/23 19:21 Temperature 36.9 C Temperature Source Oral Pulse Rate 69 Pulse Rate from SpO2 Sensor Respiratory Rate 15 Respiratory Depth Normal Blood Pressure 71/42 L Blood Pressure Mean 51 Pulse Oximetry 90 98 Oxygen Delivery Method Room Air Nasal Cannula Oxygen Flow Rate 2 Sepsis Recent Fever Within 48 Hours No Sepsis New/Unexplained Change in Mental Status No Sepsis Action Taken by Nursing No Action Required 01/09/23 19:15 01/09/23 19:15 01/09/23 19:30 Temperature Temperature Source Pulse Rate 68 68 Pulse Rate from SpO2 Sensor 68 Respiratory Rate 17 17 Respiratory Depth Blood Pressure 71/48 L Blood Pressure Mean 55 Pulse Oximetry 93 Oxygen Delivery Method Room Air Oxygen Flow Rate Sepsis Recent Fever Within 48 Hours Sepsis New/Unexplained Change in Mental Status Sepsis Action Taken by Nursing 01/09/23 19:36 01/09/23 19:36 01/09/23 19:45 Temperature Temperature Source Pulse Rate 67 73 Pulse Rate from SpO2 Sensor 67 73 Respiratory Rate 17 14 Respiratory Depth Blood Pressure 91/56 L Blood Pressure Mean 67 Pulse Oximetry 92 88 L Oxygen Delivery Method Room Air Room Air Oxygen Flow Rate Sepsis Recent Fever Within 48 Hours Sepsis New/Unexplained Change in Mental Status Sepsis Action Taken by Nursing 01/09/23 19:48 01/09/23 19:48 01/09/23 20:00 Temperature Temperature Source Pulse Rate 72 Pulse Rate from SpO2 Sensor 72 Respiratory Rate 17 Respiratory Depth Blood Pressure 106/65 109/61 Blood Pressure Mean 78 77 Pulse Oximetry 97 Oxygen Delivery Method Nasal Cannula Oxygen Flow Rate 2 Sepsis Recent Fever Within 48 Hours Sepsis New/Unexplained Change in Mental Status Sepsis Action Taken by Nursing 01/09/23 20:00 01/09/23 20:15 01/09/23 20:16 Temperature Temperature Source Pulse Rate 75 75 Pulse Rate from SpO2 Sensor 75 Respiratory Rate 16 18 Respiratory Depth Blood Pressure 90/45 L Blood Pressure Mean 60 Pulse Oximetry 92 94 Oxygen Delivery Method Nasal Cannula Oxygen Flow Rate 2 Sepsis Recent Fever Within 48 Hours Sepsis New/Unexplained Change in Mental Status Sepsis Action Taken by Nursing 01/09/23 20:16 01/09/23 20:23 01/09/23 20:23 Temperature Temperature Source Pulse Rate 75 Pulse Rate from SpO2 Sensor 75 77 Respiratory Rate 30 H Respiratory Depth Blood Pressure 121/72 Blood Pressure Mean 88 Pulse Oximetry 92 99 Oxygen Delivery Method Nasal Cannula Nasal Cannula Oxygen Flow Rate 2 2 Sepsis Recent Fever Within 48 Hours Sepsis New/Unexplained Change in Mental Status Sepsis Action Taken by Nursing 01/09/23 20:42 01/09/23 20:42 01/09/23 20:45 Temperature Temperature Source Pulse Rate 76 76 Pulse Rate from SpO2 Sensor 78 72 Respiratory Rate 16 13 Respiratory Depth Blood Pressure 97/65 L Blood Pressure Mean 75 Pulse Oximetry 97 98 Oxygen Delivery Method Nasal Cannula Nasal Cannula Oxygen Flow Rate Sepsis Recent Fever Within 48 Hours Sepsis New/Unexplained Change in Mental Status Sepsis Action Taken by Nursing 01/09/23 20:46 01/09/23 20:46 01/09/23 21:00 Temperature Temperature Source Pulse Rate 75 77 Pulse Rate from SpO2 Sensor 75 77 Respiratory Rate 12 15 Respiratory Depth Blood Pressure 97/59 L Blood Pressure Mean 71 Pulse Oximetry 100 90 Oxygen Delivery Method Nasal Cannula Oxygen Flow Rate Sepsis Recent Fever Within 48 Hours Sepsis New/Unexplained Change in Mental Status Sepsis Action Taken by Nursing 01/09/23 21:01 01/09/23 21:01 01/09/23 21:15 Temperature Temperature Source Pulse Rate 77 Pulse Rate from SpO2 Sensor 79 Respiratory Rate 17 Respiratory Depth Blood Pressure 123/91 89/53 L Blood Pressure Mean 101 65 Pulse Oximetry 95 Oxygen Delivery Method Oxygen Flow Rate Sepsis Recent Fever Within 48 Hours Sepsis New/Unexplained Change in Mental Status Sepsis Action Taken by Nursing 01/09/23 21:15 01/09/23 21:30 01/09/23 21:30 Temperature Temperature Source Pulse Rate 75 76 Pulse Rate from SpO2 Sensor 79 76 Respiratory Rate 14 18 Respiratory Depth Blood Pressure 99/57 L Blood Pressure Mean 71 Pulse Oximetry 87 L 95 Oxygen Delivery Method Oxygen Flow Rate Sepsis Recent Fever Within 48 Hours Sepsis New/Unexplained Change in Mental Status Sepsis Action Taken by Nursing 01/09/23 21:37 01/09/23 21:37 01/09/23 21:45 Temperature Temperature Source Pulse Rate 77 Pulse Rate from SpO2 Sensor 77 Respiratory Rate 15 Respiratory Depth Blood Pressure 93/58 L 99/56 L Blood Pressure Mean 69 70 Pulse Oximetry 98 Oxygen Delivery Method Oxygen Flow Rate Sepsis Recent Fever Within 48 Hours Sepsis New/Unexplained Change in Mental Status Sepsis Action Taken by Nursing 01/09/23 21:45 Temperature Temperature Source Pulse Rate 78 Pulse Rate from SpO2 Sensor 77 Respiratory Rate 15 Respiratory Depth Blood Pressure Blood Pressure Mean Pulse Oximetry 98 Oxygen Delivery Method Oxygen Flow Rate Sepsis Recent Fever Within 48 Hours Sepsis New/Unexplained Change in Mental Status Sepsis Action Taken by Nursing Physical Exam GENERAL: Ill-appearing. HENT: Exam performed. -Head: Normocephalic and atraumatic. EYES: Conjunctivae and EOM are normal. Pupils are equal, round, and reactive to light. Right eye exhibits no discharge. Left eye exhibits no discharge. No scleral icterus. NECK: Normal range of motion. Neck supple. No JVD present. CV: Normal rate, regular rhythm, normal heart sounds and intact distal pulses. There is no peripheral edema. Palpable radial pulses bue. PULM/CHEST: Rhonchi bilaterally. Rales at the bases bilaterally. ABD: The abdomen is soft. NEURO: Mild dysarthria. Motor and sensation grossly intact. Course Course 1908: The patient was evaluated in room B5. A complete history and physical exam was performed Cardiac monitoring: An order was placed for continuous cardiac monitoring. The monitor shows a rate of 70 with sinus rhythm interpreted by me Patient found to be hypotensive 71/42 in the emergency department. Sepsis protocols were initiated. Patient is reportedly on Coumadin and recently had a stroke therefore code stroke was not initiated as patient is not a TNK candidate. External medical records reviewed. Patient was admitted from December 01 to December 06, 2022 at this facility. She was admitted for sepsis and pneumonia. Her blood cultures grew out MRSA 4-4. She has sputum culture that grew out MSSA. Patient was admitted to the ICU and intubated she was on pressors. On December 06 the patient suffered a stroke with MRI showing numerous bilateral foci of restricted diffusion suggesting embolic phenomenon and a possible subarachnoid hemorrhage. Patient was subsequently transferred to [facility] External medical records from [facility] reviewed. The patient had a TTE done on December 16, 2022 which showed ejection fraction 60 to 65% with a thrombus in the left ventricular apex measuring 1.8 x 1.3 cm. While at [facility] the patient had fluctuant mental status which they thought was secondary to her metabolic/uremic encephalopathy and delirium. While at [facility] the patient was noted to be in renal failure and had dialysis done from December 09 to December 11. They attributed her renal failure to hypotension, prerenal factors and possible vancomycin toxicity. Patient demonstrated improvement in renal function and did not receive any further dialysis. While in the ICU the patient also had a bout of paroxysmal atrial fibrillation. The patient was treated for left ventricular thrombus with heparin and then bridged to Coumadin. SIRS on December 03 showed no growth at patient was discharged with clonazepam , gabapentin, hydromorphone, and warfarin from [facility] to [facility]. External medical records from [facility] reviewed. While at [facility] the patient was having frustration with difficulty word finding at times. She was discharged from [facility] 2 days ago on January 07, 2023. While in [facility] the patient's urinalysis did show positive bacteria but she is not having symptoms. The direct plan was to give the patient Keflex for 5 days. 1950: Nursing informed me that the patient is not hypoxic on room air. Supplemental oxygen via nasal cannula was applied which improved the patient's oxygen saturation. Patient's blood pressure is improved with hydration. 2200: Vital signs stable on supplemental oxygen via nasal cannula. Labs showed leukocytosis of 15.7. Hemoglobin 9.2. INR elevated at 3.6. Venous pH 7.09 venous PCO2 58 venous bicarb 18. Patient's creatinine is 5.46. External medical records from [facility] were reviewed and the last creatinine there on December 24, 2022 was 3.35. Magnesium low at 1.4. Magnesium repletion started in the emergency department. High-sensitivity troponin 70.3. Total creatinine kinase 2856. Aggressive fluid hydration for the patient's rhabdomyolysis as well as for the patient's continuing low blood pressures was ordered. Urine does appear to be infected. Patient was treated with broad- spectrum antibiotics after speaking with pharmacy. Patient was treated with cefepime linezolid and Flagyl as we try to avoid vancomycin as thought that the patient's previous kidney insult could have been due to vancomycin toxicity. CT of the head shows no acute intracranial abnormality there is expected evolution of the subacute infarcts in the right cerebral hemisphere largest in the occipital lobe in the previously noted trace subarachnoid hemorrhage is not seen today. Chest x-ray reviewed by me shows possible infiltrate of the left lower lobe. [facility] hospitalist team Dr. Cox was notified of the patient and the patient was evaluated for ICU admission by Devante ZELAYA. Administered Medications Magnesium Sulfate/Dextrose (Magnesium Sulfate / D5w) 1 gm in 100 mls @ 50 mls/hr IV Q2H VI Stop: 01/10/23 03:44 Last Admin: 01/09/23 23:23 Dose: 50 mls/hr Documented By: Infusion: 01/09/23 23:23 Dose: 50 mls/hr Documented By: Admin: 01/09/23 22:00 Dose: 50 mls/hr Documented By: ARS Discontinued Medications Sodium Chloride (Nss 1000ml) 1,000 mls @ 999 mls/hr IV .Q1H1M VI Stop: 01/09/23 20:30 Last Infusion: 01/09/23 23:39 Dose: 0 mls/hr Documented By: Admin: 01/09/23 19:50 Dose: 999 mls/hr Documented By: ARS Sodium Chloride (Nss 1000ml) 1,000 mls @ 999 mls/hr IV .Q1H1M ONE Stop: 01/09/23 21:42 Last Infusion: 01/09/23 23:24 Dose: 0 mls/hr Documented By: Admin: 01/09/23 21:05 Dose: 999 mls/hr Documented By: ARS Sodium Chloride (Nss 1000ml) 1,000 mls @ 125 mls/hr IV .Q8H VI Stop: 02/08/23 20:44 Last Infusion: 01/10/23 00:33 Dose: 0 mls/hr Documented By: Admin: 01/09/23 21:05 Dose: 125 mls/hr Documented By: ARS Magnesium Sulfate/Dextrose (Magnesium Sulfate / D5w) 1 gm in 100 mls @ 100 mls/hr IV NOW STA Stop: 01/09/23 21:59 Last Infusion: 01/09/23 22:37 Dose: 0 mls/hr Documented By: Admin: 01/09/23 21:09 Dose: 100 mls/hr Documented By: ARS Cefepime HCl (Maxipime) 2,000 mg in 20 mls @ 5 mls/min IV NOW STA; Protocol Stop: 01/09/23 21:05 Last Admin: 01/09/23 21:09 Dose: 5 mls/min Documented By: LONNIE Metronidazole (Flagyl) 500 mg in 100 mls @ 100 mls/hr IV NOW STA Stop: 01/09/23 22:02 Last Infusion: 01/09/23 23:24 Dose: 0 mls/hr Documented By: Admin: 01/09/23 21:45 Dose: 100 mls/hr Documented By: LONNIE Sodium Chloride (Nss 1000ml) 1,000 mls @ 999 mls/hr IV .Q1H1M ONE Stop: 01/09/23 22:04 Last Infusion: 01/09/23 22:33 Dose: 0 mls/hr Documented By: Admin: 01/09/23 21:28 Dose: 999 mls/hr Documented By: LONNIE Calcium Gluconate () 1,000 mg in 60 mls @ 240 mls/hr IV Q15M VI Stop: 01/09/23 22:14 Last Infusion: 01/09/23 23:23 Dose: 0 mls/hr Documented By: Admin: 01/09/23 22:04 Dose: 240 mls/hr Documented By: Infusion: 01/09/23 22:04 Dose: 240 mls/hr Documented By: Admin: 01/09/23 22:03 Dose: 240 mls/hr Documented By: LONNIE Parenteral Electrolytes (Normosol-R) 1,000 mls @ 110 mls/hr IV .Q9H6M VI Stop: 02/08/23 21:44 Last Admin: 01/10/23 00:12 Dose: 110 mls/hr Documented By: SOLOMON Linezolid (Linezolid 600 Mg/300 Ml D5w) 600 mg IV NOW STA Stop: 01/09/23 21:04 Last Admin: 01/09/23 21:45 Dose: 600 mg Documented By: LONNIE Critical Care Time Critical Care Time: Yes Total Critical Care Time: 90 I have personally spent greater than 90 minutes of critical care time in the direct management of this patient. This includes bedside care, interpretation of diagnostic studies, and testing, discussion with consultants, patient, and family members, and other required patient management activities. This 90 minutes is in excess of all separately billable procedures. Medical Decision Making Medical Records Attestation: I reviewed the patient's medical records. External medical records reviewed. Patient was admitted from December 01 to December 06, 2022 at this facility. She was admitted for sepsis and pneumonia. Her blood cultures grew out MRSA 4-4. She has sputum culture that grew out MSSA. Patient was admitted to the ICU and intubated she was on pressors. On December 06 the patient suffered a stroke with MRI showing numerous bilateral foci of restricted diffusion suggesting embolic phenomenon and a possible subarachnoid hemorrhage. Patient was subsequently transferred to [facility] External medical records from [facility] reviewed. The patient had a TTE done on December 16, 2022 which showed ejection fraction 60 to 65% with a thrombus in the left ventricular apex measuring 1.8 x 1.3 cm. While at [facility] the patient had fluctuant mental status which they thought was secondary to her metabolic/uremic encephalopathy and delirium. While at [facility] the patient was noted to be in renal failure and had dialysis done from December 09 to December 11 . They attributed her renal failure to hypotension, prerenal factors and possible vancomycin toxicity. Patient demonstrated improvement in renal function and did not receive any further dialysis. While in the ICU the patient also had a bout of paroxysmal atrial fibrillation. The patient was sam bola for left ventricular thrombus with heparin and then bridged to Coumadin. SIRS on December 03 showed no growth at patient was discharged with clonazepam , gabapentin, hydromorphone, and warfarin from [facility] to [facility]. External medical records from [facility] reviewed. While at [facility] the floyd cheney was having frustration with difficulty word finding at times. She was discharged from [facility] 2 days ago on January 07, 2023. While in [facility] the patient's urinalysis did show positive bacteria but she is not having symptoms. The direct plan was to give the patient Keflex for 5 days. Laboratory Data Attestation: I reviewed the patient's lab results. 01/09/23 19:50 01/09/23 19:50 Lab Results 01/09/23 01/09/23 01/09/23 Range/Units 19:46 19:46 19:46 WBC (4.8-10.8) K/ul RBC (4.20-5.40) M/uL Hgb (12.0-16.0) g/dl POC Hgb (12.0-16.0) g/dl Hct (37.0-47.0) % POC Hct (37-47) % MCV (80.0-100.0) fL MCH (25.0-34.0) pg MCHC (32.0-36.0) g/dL RDW Std Deviation (36.4-46.3) fL RDW Coeff of Cheri (11.5-14.5) % Plt Count (130-400) K/uL MPV (9.4-12.4) fL Immature Gran % (Auto) % Neut % (Auto) % Lymph % (Auto) % Stephens % (Auto) % Eos % (Auto) % Baso % (Auto) % Neut # (Auto) (1.40-6.50) K/uL Lymph # (Auto) (1.2-3.4) K/uL Stephens # (Auto) (0.11-0.59) K/uL Eos # (Auto) (0-0.50) K/uL Baso # (Auto) (0-0.2) K/uL Immature Gran # (Auto) (0.01-0.20) K/uL PT (9.0-12.0) Seconds INR (0.9-1.1) APTT (21.0-31.0) Seconds PTT Ratio VBG pH 7.09 L (7.36-7.41) VBG pCO2 58 H (38-50) mmHg VBG pO2 26 mmHg VBG HCO3 18 mmol/L VBG O2 Saturation < 60.0 % VBG Base Excess -12.6 mEq/L POC Sodium (135-144) mmol/L Sodium (136-145) mmol/L POC Potassium (3.3-5.0) mmol/L Potassium (3.5-5.1) mmol/L POC Chloride (101-112) mmol/L Chloride (98-107) mmol/L Carbon Dioxide (21-32) mmol/L POC Total CO2 (24-31) mmol/L Anion Gap (3-11) POC Anion Gap (16-25) mmol/L POC BUN (7-18) mg/dl BUN (6-23) mg/dl Creatinine (0.6-1.2) mg/dl POC Creatinine (0.6-1.3) mg/dl Est Cr Clr Drug Dosing Est GFR ( Amer) ml/min Est GFR (Non-Af Amer) ml/min BUN/Creatinine Ratio (10-20) Glucose (70-99(Fasting)) mg/dl POC Glucose (other) (70-99) mg/dl Lactate (0.4-2.0) mmol/L Calcium (8.5-10.1) mg/dl POC Ioniz Calcium Kimberly (1.12-1.32) mmol/l Magnesium (1.7-2.4) mg/dl Total Bilirubin (0.2-1.0) mg/dl Direct Bilirubin (0-0.2) mg/dl AST (13-39) U/L ALT (7-52) U/L Alkaline Phosphatase (34-104) U/L Total Creatine Kinase (26-192) U/L Troponin I High Sens (0-14) pg/ml Total Protein (6.0-8.3) gm/dl Albumin (3.4-5.0) gm/dl Lipase (11-82) U/L Procalcitonin (0-0.5) ng/ml Urine Color Urine Appearance (Clear) Urine pH (4.5-7.5) Ur Specific Porterfield (1.000-1.030) Urine Protein (Negative) Urine Glucose (UA) (Negative) Urine Ketones (Negative) Urine Blood (Negative) Urine Nitrite (Negative) Urine Bilirubin (Negative) Urine Urobilinogen (Negative) Ur Leukocyte Esterase (Negative) Urine WBC (Auto) (0-5) /hpf Urine RBC (Auto) (0-4) /hpf U Hyaline Cast (Auto) (0-5) /lpf U Epithel Cells (Auto) (0-5) /lpf Urine Bacteria (Auto) (Negative) Urine Yeast Urine Opiates Screen (Neg) Ur Methadone, Qual (Neg) Urine Barbiturates (Neg) Ur Phencyclidine (PCP) (Neg) U Amphetamin/Meth Scrn (Neg) MDMA (Ecstasy) Screen (Neg) U Benzodiazepines Scrn (Neg) Ur Cocaine Metabolite (Neg) U Marijuana (THC) Screen (Neg) Ethyl Alcohol mg/dL < 10.0 (<10.0) mg/dl Blood Type AB Negative Antibody Screen NEGATIVE 01/09/23 01/09/23 01/09/23 Range/Units 19:48 19:50 19:50 WBC 15.74 H (4.8-10.8) K/ul RBC 2.73 L (4.20-5.40) M/uL Hgb 9.2 L (12.0-16.0) g/dl POC Hgb 8.8 L (12.0-16.0) g/dl Hct 29.0 L (37.0-47.0) % POC Hct 26 L (37-47) % MCV 106.2 H (80.0-100.0) fL MCH 33.7 (25.0-34.0) pg MCHC 31.7 L (32.0-36.0) g/dL RDW Std Deviation 64.0 H (36.4-46.3) fL RDW Coeff of Cheri 16.3 H (11.5-14.5) % Plt Count 215 (130-400) K/uL MPV 10.6 (9.4-12.4) fL Immature Gran % (Auto) 1.0 % Neut % (Auto) 84.2 % Lymph % (Auto) 7.0 % Stephens % (Auto) 7.1 % Eos % (Auto) 0.4 % Baso % (Auto) 0.3 % Neut # (Auto) 13.26 H (1.40-6.50) K/uL Lymph # (Auto) 1.10 L (1.2-3.4) K/uL Stephens # (Auto) 1.12 H (0.11-0.59) K/uL Eos # (Auto) 0.06 (0-0.50) K/uL Baso # (Auto) 0.05 (0-0.2) K/uL Immature Gran # (Auto) 0.15 (0.01-0.20) K/uL PT 35.8 H (9.0-12.0) Seconds INR 3.6 H (0.9-1.1) APTT 43.3 H (21.0-31.0) Seconds PTT Ratio 1.6 VBG pH (7.36-7.41) VBG pCO2 (38-50) mmHg VBG pO2 mmHg VBG HCO3 mmol/L VBG O2 Saturation % VBG Base Excess mEq/L POC Sodium 140 (135-144) mmol/L Sodium (136-145) mmol/L POC Potassium 5.0 (3.3-5.0) mmol/L Potassium (3.5-5.1) mmol/L POC Chloride 114 H (101-112) mmol/L Chloride (98-107) mmol/L Carbon Dioxide (21-32) mmol/L POC Total CO2 19 L (24-31) mmol/L Anion Gap (3-11) POC Anion Gap 14.0 L (16-25) mmol/L POC BUN 92 H (7-18) mg/dl BUN (6-23) mg/dl Creatinine (0.6-1.2) mg/dl POC Creatinine 5.9 H* (0.6-1.3) mg/dl Est Cr Clr Drug Dosing Est GFR ( Amer) ml/min Est GFR (Non-Af Amer) ml/min BUN/Creatinine Ratio (10-20) Glucose (70-99(Fasting)) mg/dl POC Glucose (other) 113 H (70-99) mg/dl Lactate (0.4-2.0) mmol/L Calcium (8.5-10.1) mg/dl POC Ioniz Calcium Kimberly 1.03 L (1.12-1.32) mmol/l Magnesium (1.7-2.4) mg/dl Total Bilirubin (0.2-1.0) mg/dl Direct Bilirubin (0-0.2) mg/dl AST (13-39) U/L ALT (7-52) U/L Alkaline Phosphatase (34-104) U/L Total Creatine Kinase (26-192) U/L Troponin I High Sens (0-14) pg/ml Total Protein (6.0-8.3) gm/dl Albumin (3.4-5.0) gm/dl Lipase (11-82) U/L Procalcitonin (0-0.5) ng/ml Urine Color Urine Appearance (Clear) Urine pH (4.5-7.5) Ur Specific [place] (1.000-1.030) Urine Protein (Negative) Urine Glucose (UA) (Negative) Urine Ketones (Negative) Urine Blood (Negative) Urine Nitrite (Negative) Urine Bilirubin (Negative) Urine Urobilinogen (Negative) Ur Leukocyte Esterase (Negative) Urine WBC (Auto) (0-5) /hpf Urine RBC (Auto) (0-4) /hpf U Hyaline Cast (Auto) (0-5) /lpf U Epithel Cells (Auto) (0-5) /lpf Urine Bacteria (Auto) (Negative) Urine Yeast Urine Opiates Screen (Neg) Ur Methadone, Qual (Neg) Urine Barbiturates (Neg) Ur Phencyclidine (PCP) (Neg) U Amphetamin/Meth Scrn (Neg) MDMA (Ecstasy) Screen (Neg) U Benzodiazepines Scrn (Neg) Ur Cocaine Metabolite (Neg) U Marijuana (THC) Screen (Neg) Ethyl Alcohol mg/dL (<10.0) mg/dl Blood Type Antibody Screen 01/09/23 01/09/23 01/09/23 Range/Units 19:50 19:50 19:50 WBC (4.8-10.8) K/ul RBC (4.20-5.40) M/uL Hgb (12.0-16.0) g/dl POC Hgb (12.0-16.0) g/dl Hct (37.0-47.0) % POC Hct (37-47) % MCV (80.0-100.0) fL MCH (25.0-34.0) pg MCHC (32.0-36.0) g/dL RDW Std Deviation (36.4-46.3) fL RDW Coeff of Cheri (11.5-14.5) % Plt Count (130-400) K/uL MPV (9.4-12.4) fL Immature Gran % (Auto) % Neut % (Auto) % Lymph % (Auto) % Stephens % (Auto) % Eos % (Auto) % Baso % (Auto) % Neut # (Auto) (1.40-6.50) K/uL Lymph # (Auto) (1.2-3.4) K/uL Stephens # (Auto) (0.11-0.59) K/uL Eos # (Auto) (0-0.50) K/uL Baso # (Auto) (0-0.2) K/uL Immature Gran # (Auto) (0.01-0.20) K/uL PT (9.0-12.0) Seconds INR (0.9-1.1) APTT (21.0-31.0) Seconds PTT Ratio VBG pH (7.36-7.41) VBG pCO2 (38-50) mmHg VBG pO2 mmHg VBG HCO3 mmol/L VBG O2 Saturation % VBG Base Excess mEq/L POC Sodium (135-144) mmol/L Sodium 138 (136-145) mmol/L POC Potassium (3.3-5.0) mmol/L Potassium 4.7 (3.5-5.1) mmol/L POC Chloride (101-112) mmol/L Chloride 109 H (98-107) mmol/L Carbon Dioxide 18 L (21-32) mmol/L POC Total CO2 (24-31) mmol/L Anion Gap 11 (3-11) POC Anion Gap (16-25) mmol/L POC BUN (7-18) mg/dl BUN 78 H (6-23) mg/dl Creatinine 5.46 H* (0.6-1.2) mg/dl POC Creatinine (0.6-1.3) mg/dl Est Cr Clr Drug Dosing Not Reportable Est GFR ( Amer) 8.5 ml/min Est GFR (Non-Af Amer) 7.3 ml/min BUN/Creatinine Ratio 14.3 (10-20) Glucose 117 H (70-99(Fasting)) mg/dl POC Glucose (other) (70-99) mg/dl Lactate 0.7 (0.4-2.0) mmol/L Calcium 7.7 L (8.5-10.1) mg/dl POC Ioniz Calcium Kimberly (1.12-1.32) mmol/l Magnesium 1.4 L (1.7-2.4) mg/dl Total Bilirubin 0.3 (0.2-1.0) mg/dl Direct Bilirubin 0.0 (0-0.2) mg/dl AST 49 H (13-39) U/L ALT 17 (7-52) U/L Alkaline Phosphatase 60 (34-104) U/L Total Creatine Kinase 2856 H (26-192) U/L Troponin I High Sens 70.3 H* (0-14) pg/ml Total Protein 7.5 (6.0-8.3) gm/dl Albumin 3.8 (3.4-5.0) gm/dl Lipase 29 (11-82) U/L Procalcitonin 0.19 (0-0.5) ng/ml Urine Color Urine Appearance (Clear) Urine pH (4.5-7.5) Ur Specific [place] (1.000-1.030) Urine Protein (Negative) Urine Glucose (UA) (Negative) Urine Ketones (Negative) Urine Blood (Negative) Urine Nitrite (Negative) Urine Bilirubin (Negative) Urine Urobilinogen (Negative) Ur Leukocyte Esterase (Negative) Urine WBC (Auto) (0-5) /hpf Urine RBC (Auto) (0-4) /hpf U Hyaline Cast (Auto) (0-5) /lpf U Epithel Cells (Auto) (0-5) /lpf Urine Bacteria (Auto) (Negative) Urine Yeast Urine Opiates Screen (Neg) Ur Methadone, Qual (Neg) Urine Barbiturates (Neg) Ur Phencyclidine (PCP) (Neg) U Amphetamin/Meth Scrn (Neg) MDMA (Ecstasy) Screen (Neg) U Benzodiazepines Scrn (Neg) Ur Cocaine Metabolite (Neg) U Marijuana (THC) Screen (Neg) Ethyl Alcohol mg/dL (<10.0) mg/dl Blood Type Antibody Screen 01/09/23 01/09/23 Range/Units 20:20 20:20 WBC (4.8-10.8) K/ul RBC (4.20-5.40) M/uL Hgb (12.0-16.0) g/dl POC Hgb (12.0-16.0) g/dl Hct (37.0-47.0) % POC Hct (37-47) % MCV (80.0-100.0) fL MCH (25.0-34.0) pg MCHC (32.0-36.0) g/dL RDW Std Deviation (36.4-46.3) fL RDW Coeff of Cheri (11.5-14.5) % Plt Count (130-400) K/uL MPV (9.4-12.4) fL Immature Gran % (Auto) % Neut % (Auto) % Lymph % (Auto) % Stephens % (Auto) % Eos % (Auto) % Baso % (Auto) % Neut # (Auto) (1.40-6.50) K/uL Lymph # (Auto) (1.2-3.4) K/uL Stephens # (Auto) (0.11-0.59) K/uL Eos # (Auto) (0-0.50) K/uL Baso # (Auto) (0-0.2) K/uL Immature Gran # (Auto) (0.01-0.20) K/uL PT (9.0-12.0) Seconds INR (0.9-1.1) APTT (21.0-31.0) Seconds PTT Ratio VBG pH (7.36-7.41) VBG pCO2 (38-50) mmHg VBG pO2 mmHg VBG HCO3 mmol/L VBG O2 Saturation % VBG Base Excess mEq/L POC Sodium (135-144) mmol/L Sodium (136-145) mmol/L POC Potassium (3.3-5.0) mmol/L Potassium (3.5-5.1) mmol/L POC Chloride (101-112) mmol/L Chloride (98-107) mmol/L Carbon Dioxide (21-32) mmol/L POC Total CO2 (24-31) mmol/L Anion Gap (3-11) POC Anion Gap (16-25) mmol/L POC BUN (7-18) mg/dl BUN (6-23) mg/dl Creatinine (0.6-1.2) mg/dl POC Creatinine (0.6-1.3) mg/dl Est Cr Clr Drug Dosing Est GFR ( Amer) ml/min Est GFR (Non-Af Amer) ml/min BUN/Creatinine Ratio (10-20) Glucose (70-99(Fasting)) mg/dl POC Glucose (other) (70-99) mg/dl Lactate (0.4-2.0) mmol/L Calcium (8.5-10.1) mg/dl POC Ioniz Calcium Kimberly (1.12-1.32) mmol/l Magnesium (1.7-2.4) mg/dl Total Bilirubin (0.2-1.0) mg/dl Direct Bilirubin (0-0.2) mg/dl AST (13-39) U/L ALT (7-52) U/L Alkaline Phosphatase (34-104) U/L Total Creatine Kinase (26-192) U/L Troponin I High Sens (0-14) pg/ml Total Protein (6.0-8.3) gm/dl Albumin (3.4-5.0) gm/dl Lipase (11-82) U/L Procalcitonin (0-0.5) ng/ml Urine Color Yellow Urine Appearance Cloudy A (Clear) Urine pH 5.0 (4.5-7.5) Ur Specific [place]field 1.020 (1.000-1.030) Urine Protein 1+ H (Negative) Urine Glucose (UA) Negative (Negative) Urine Ketones Trace H (Negative) Urine Blood 2+ H (Negative) Urine Nitrite Negative (Negative) Urine Bilirubin Negative (Negative) Urine Urobilinogen Negative (Negative) Ur Leukocyte Esterase 2+ H (Negative) Urine WBC (Auto) >30 H (0-5) /hpf Urine RBC (Auto) 0-4 (0-4) /hpf U Hyaline Cast (Auto) 5-10 H (0-5) /lpf U Epithel Cells (Auto) 10-20 H (0-5) /lpf Urine Bacteria (Auto) 1+ H (Negative) Urine Yeast Not Reportable Urine Opiates Screen Pos H (Neg) Ur Methadone, Qual Neg (Neg) Urine Barbiturates Neg (Neg) Ur Phencyclidine (PCP) Neg (Neg) U Amphetamin/Meth Scrn Neg (Neg) MDMA (Ecstasy) Screen Neg (Neg) U Benzodiazepines Scrn Neg (Neg) Ur Cocaine Metabolite Neg (Neg) U Marijuana (THC) Screen Neg (Neg) Ethyl Alcohol mg/dL (<10.0) mg/dl Blood Type Antibody Screen Imaging Data Attestation: I personally reviewed and interpreted this imaging study as follows: My Impression: Chest x-ray reviewed by me shows possible infiltrate of the left lower lobe. Radiologist's Impression: Chest X-Ray 01/09/23 19:21 XR chest 1V portable HISTORY: 72 years-old Female Sepsis acute sepsis COMPARISON: Chest radiograph 12/07/2022 TECHNIQUE: AP view of the chest FINDINGS: Cardiac silhouette is enlarged. Hypoinflation with pulmonary vascular congestion. Left basilar opacity, likely summation density. No pneumothorax, large pleural effusion or lobar airspace consolidation. Degenerative changes of the shoulders and spine. IMPRESSION: Cardiomegaly with hypoinflation. ACT 112: Negative or not required by law. The above report was generated using voice recognition software. It may contain grammatical, syntax or spelling errors. Electronically signed by: Tico Vega M.D. 01/09/2023 8:[address] 01/09/23 19:22 CT head/brain wo con CLINICAL HISTORY: 72 years-old Female with ams. Acutely altered mental status. TECHNIQUE: Multiple axial CT images of the head were obtained without contrast. A dose lowering technique was utilized adhering to the principles of ALARA. CT DOSE: 537.48 mGy.cm COMPARISON: Head CT 12/07/2022 FINDINGS: No acute intracranial hemorrhage, midline shift, intracranial mass, hydrocephalus, territorial ischemia or abnormal extra-axial collection. Previously noted trace subarachnoid hemorrhage within the right cerebral hemisphere is not definitively seen on today's study. Evolving subacute infarcts of the right cerebral hemisphere, notably within the right occipital lobe. Mild chronic microvascular ischemic disease. The calvarium is intact. Large right greater than left mastoid effusions with fluid also noted within the middle ear cavities, similar to prior. Paranasal sinuses are generally clear. IMPRESSION: 1. No acute intracranial abnormality. 2. Expected evolution of the subacute infarcts within the right cerebral hemisphere, largest within the occipital lobe. 3. The previously noted trace subarachnoid hemorrhage of the right cerebral hemisphere is not definitively seen on today's study. ACT 112: Negative or not required by law. The above report was generated using voice recognition software. It may contain grammatical, syntax or spelling errors. Electronically signed by: Tico Vega M.D. 01/09/2023 8:39 PM ECG Data Attestation: I personally reviewed and interpreted this ECG as follows: Indication: + weakness Rate (beats per minute): 68 Rhythm: + normal sinus ECG Intervals/blocks: + Normal QRS, + Normal ND and + Normal QT-c ECG ST segments: + Normal ST segments [facility] Narrative 1909: The patient was evaluated in room B5. A complete history and physical exam was performed Cardiac monitoring: An order was placed for continuous cardiac monitoring. The monitor shows a rate of 70 with sinus rhythm interpreted by me Patient found to be hypotensive 71/42 in the emergency department. Sepsis protocols were initiated. Patient is reportedly on Coumadin and recently had a stroke therefore code stroke was not initiated as patient is not a TNK candidate. External medical records reviewed. Patient was admitted from December 01 to December 06, 2022 at this facility. She was admitted for sepsis and pneumonia. Her blood cultures grew out MRSA 4-4. She has sputum culture that grew out MSSA. Patient was admitted to the ICU and intubated she was on pressors. On December 06 the patient suffered a stroke with MRI showing numerous bilateral foci of restricted diffusion suggesting embolic phenomenon and a possible subarachnoid hemorrhage. Patient was subsequently transferred to [facility] External medical records from [facility] reviewed. The patient had a TTE done on December 16, 2022 which showed ejection fraction 60 to 65% with a thrombus in the left ventricular apex measuring 1.8 x 1.3 cm. While at [facility] the patient had fluctuant mental status which they thought was secondary to her metabolic/uremic encephalopathy and delirium. While at [facility] the patient was noted to be in renal failure and had dialysis done from December 09 to December 11. They attributed her renal failure to hypotension, prerenal factors and possible vancomycin toxicity. Patient demonstrated improvement in renal function and did not receive any further dialysis. While in the ICU the patient also had a bout of paroxysmal atrial fibrillation. The patient was treated for left ventricular thrombus with heparin and then bridged to Coumadin. SIRS on December 03 showed no growth at patient was discharged with clonazepam , gabapentin, hydromorphone, and warfarin from [facility] to [facility]. External medical records from [facility] reviewed. While at [facility] the patient was having frustration with difficulty word finding at times. She was discharged from [facility] 2 days ago on January 07, 2023. While in [facility] the patient's urinalysis did show positive bacteria but she is not having symptoms. The direct plan was to give the patient Keflex for 5 days. 1950: Nursing informed me that the patient is not hypoxic on room air. Supplemental oxygen via nasal cannula was applied which improved the patient's oxygen saturation. Patient's blood pressure is improved with hydration. 2200: Vital signs stable on supplemental oxygen via nasal cannula. Labs showed leukocytosis of 15.7. Hemoglobin 9.2. INR elevated at 3.6. Venous pH 7.09 venous PCO2 58 venous bicarb 18. Patient's creatinine is 5.46. External medical records from [facility] were reviewed and the last creatinine there on December 24, 2022 was 3.35. Magnesium low at 1.4. Magnesium repletion started in the emergency department. High-sensitivity troponin 70.3. Total creatinine kinase 2856. Aggressive fluid hydration for the patient's rhabdomyolysis as well as for the patient's continuing low blood pressures was ordered. Urine does appear to be infected. Patient was treated with broad- spectrum antibiotics after speaking with pharmacy. Patient was treated with cefepime linezolid and Flagyl as we try to avoid vancomycin as thought that the patient's previous kidney insult could have been due to vancomycin toxicity. CT of the head shows no acute intracranial abnormality there is expected evolution of the subacute infarcts in the right cerebral hemisphere largest in the occipital lobe in the previously noted trace subarachnoid hemorrhage is not seen today. Chest x-ray reviewed by me shows possible infiltrate of the left lower lobe. [facility] hospitalist team Dr. Cox was notified of the patient and the patient was evaluated for ICU admission by Devante ZELAYA. Impression & Plan Acute UTI (urinary tract infection), Acute kidney injury, Sepsis, Pneumonia, Hypomagnesemia, Rhabdomyolysis, Hypoxia Discharge Plan Visit Data Chief Complaint: Overdose (Accidental) Stated Complaint: overdose ED Provider: Harshal Ceballos Discharge Problem: Acute UTI (urinary tract infection), Acute kidney injury, Sepsis, Pneumonia, Hypomagnesemia, Rhabdomyolysis, Hypoxia Patient Disposition: Admitted As Inpatient Discharge Instructions Interventions: ED Discharge Assessment Last Done: 01/10/23 00:54
[2023-01-09 21:29] LABS: Bacteria Urine Automated 1+ (Negative)
[2023-01-09 21:41] LABS: Amphetamines+Metham, Urine Neg (Neg); Barbiturates, Urine Neg (Neg); Benzodiazepine, Urine Neg (Neg); Cocaine, Urine Neg (Neg); MDMA (Ecstacy), Urine Neg (Neg); Methadone, Urine Neg (Neg); Opiate, Urine Pos (Neg); Phencyclidine, Urine Neg (Neg)
[2023-01-09] MEDS ORDERED: NORMOSOL-R 1,000 ML IV SCH (21:45)
[2023-01-09] MEDS: MAGNESIUM SULFATE / D5W 1 GM/100 ML BAG IV SCH ×2 (22:00→23:23)
[2023-01-09] MEDS: CALCIUM GLUCONATE 1,000 MG/60 ML BAG IV SCH ×2 (22:03→22:04)
--- NOTE | 2023-01-09 22:07 | History & Physical Report ---
Date of Service January 09, 2023 Assessment & Plan (1) Acute metabolic encephalopathy: Plan: Acute metabolic encephalopathy in the setting of hypovolemia and increase BUN- infection can't be completely ruled out likely pulmonary source at this time - no other focal deficits noted other than previous reported leg weakness that she feels currently is improved- head CT on arrival with expected evolustion of her previous CVA - Previous SAH "not appreciated" on CT head of today's exam - Admit to med-tele continue supportive care with crystalloids in support of ARNALDO - replete electrolytes - follow acidosis and PH - should improve with resus - Tox screen positive for opiates which she is known to be on- with her renal function will hold these until patient asks for these to avoid further accumulation/clearance confounding the above - Continue ABX as below- await cultures (2) Acute kidney injury: Plan: ARNALDO on CKD- previously required course of IHD at [facility]- reported at discharge that her ART DEALER was back to baseline - previously at 3-4 in Nov admission - currently at 5.46 - Currently appears to be related to hypovolemia/hypotension- lactate negative as well as PCT negative - follow daily - renal dose medications - avoid further nephrotoxic medications (3) Muscle weakness: Plan: Multifactorial at this time to include hypomagnesemia and hypocalcemia as well as critical illness myopathy as she has just spent 1 month in hospital/ICU. - she is also noted with elevated CK and unable note at this time when her stati n was introduced- will hold statin - could also consider holding her venlafaxine as well if not improving - support with IVF as above - follow symptoms in Am with further planning to be developed (4) Metabolic acidosis: Plan: Non gap metabolic acidosis likely secondary to elevated BUN - recheck PH and BMP now - hold any other offending medicaitons (5) Abnormal chest xray: Plan: Leukocytosis with left sided opacity and plueral effusion - she is with cough, sputum production, elevated WBC and imaging component - continue with abx coverage - noting that her PCT is negative - await blood cultures - de-escelate when able (6) Left ventricular apical thrombus: Plan: In the setting of cardiomyopathy found on admission in Nov ECHO - she has been bridged from heparin to warfarin as outpatient - she is supratherapuetic on her INR today at 3.6- goal 2.5-3.0 - restart likley within next 48 hours - daily INR (7) Cancer related pain: Plan: Decrease gabapentin to BID Hold her 4mg of dialudid for this evening - can likely restart in morning at reduced dose to avoid withdrawl (8) Hypertension: Plan: Continue BB - Hold ARB until renal function improves - re-introduce HOSSEIN/ARB when able noting her reduced EF (9) Type II diabetes mellitus: Plan: Sliding scale coverage (10) Vitamin D deficiency: Plan: No acute needs History of Present Illness Primary Care Provider: MARKUS Cabezas 72 YOF with recently complex medical history over the past few months. Patient with previous history of: SAH, CVA, Afib, metastatic bone cancer pain, pneumonia, HTN, CKD, HLD, Ventricular thrombus (on warfarin), DM. Patient presents to the emergency room today lethargic and complaints of increased lower extremity weakens. Patient states that this has been going on for the past few days and she recently just got back home from her stay at rehab facility following critical care admission in Nov for metabolic encephalopathy/septic shock and noted to go into AFIB as well as have ventricular thrombus/septic emboli not excluded. Following ICU stay patient was on medical telemetry floor where she was found to have acute CVA embolic with concern for SAH, and was transferred to [facility] [facility] patient was noted to be hypotensive as well as concern for vancomycin toxicity, and had short course treatment of IHD. In the EMD patient was noted to be hypotensive with normal lactate, elevated ART DEALER, increase in CK, decrease in HCO3 and non-gap acidosis. Patient was given 3 liters of crystalloid and Hospitalist service was consulted for admission. Patient mentation has improved since receiving fluids and BP is remaining with adequate MAPS at this time. Electrolytes are being replaced to include Mag and K, her Potassium is decreasing. Her INR is supratherapeutic at this time- she states that she just started her warfarin yesterday. Overall patient may have left side pneumonia which will continue treatment for, UA navarro contaminated, noted elevation of her CK and renal function. Continue with IVF support and follow hemodynamics. If needed for hemodyanmic support transfer to ICU for vasoactive support. COVID test on admission is: NEGATIVE Allergies Allergy/AdvReac Type Severity Reaction Status Date / Time fentanyl AdvReac Severe Hallucinati Verified 01/09/23 21:28 on Home Medications Medication Instructions Recorded Confirmed Type cholecalciferol (vitamin D3) 50 50 mcg PO QAM 01/06/22 01/09/23 History mcg (2,000 unit) capsule acetaminophen 325 mg tablet 650 mg PO Q6H PRN pain, mild 02/08/22 01/09/23 History anastrozole 1 mg tablet 1 mg PO QAM 02/08/22 01/09/23 History multivitamin with minerals 1 cap PO QAM 02/08/22 01/09/23 History losartan 100 mg tablet 100 mg PO QAM #90 tabs 05/30/22 01/09/23 Rx omeprazole 20 mg capsule,delayed 20 mg PO QAM #90 caps 07/23/22 01/09/23 Rx release Ibrance 1 dose PO DIRECTED 08/12/22 01/09/23 History calcium carbonate 600 mg-vitamin 1 tab PO QAM 08/12/22 01/09/23 History D3 10 mcg (400 unit) tablet (Calcium 600 + D(3)) hydromorphone 8 mg tablet 4 mg PO Q4 PRN Pain, Severe 08/12/22 01/09/23 History magnesium 250 mg tablet 250 mg PO DAILY 08/12/22 01/09/23 History venlafaxine 150 mg 150 mg PO QAM #90 caps 09/04/22 01/09/23 Rx capsule,extended release 24 hr rosuvastatin 5 mg tablet 5 mg PO DAILY #90 tabs 10/03/22 01/09/23 Rx clonazepam 1 mg tablet 1 mg PO TID #90 tabs 10/22/22 01/09/23 Rx venlafaxine 75 mg capsule,extended 75 mg PO QAM 12/01/22 01/09/23 History release 24 hr cephalexin 500 mg capsule 500 mg PO BID 01/09/23 01/09/23 History gabapentin 300 mg capsule 600 mg PO TID 01/09/23 01/09/23 History metoprolol succinate 50 mg 50 mg PO DAILY 01/09/23 01/09/23 History tablet,extended release 24 hr warfarin 5 mg tablet 5 mg PO QPM 01/09/23 01/09/23 History Past Med/Surg History Medical History Acute alteration in mental status Bilateral breast cancer [id number]--sx/chemo/radiation Breast cancer metastasized to bone 2021 Cancer related pain Case discussed with Dr. Miller/Renata Kelly Palliative med, who has been managing patient's complex cancer pain with Methadone 5mg TID + prn Dilaudid oral. it is noted that pt has h/o ETOH abuse and ?opioid misuse. Her son reportedly struggles with substance abuse and there have been several early requests for opioids, raising the concern someone else is taking her meds. 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/no repairer wood furniture Osteoarthritis Pain of right lower extremity Palliative care encounter Type II diabetes mellitus Vitamin D deficiency Surgical History H/O tubal ligation History of appendectomy History of section History of colonoscopy History of esophagogastroduodenoscopy (EGD) History of left breast biopsy malignant History of lumpectomy of both breasts x2 History of right breast biopsy malignant History of tooth extraction History of wisdom tooth extraction Hx laparoscopic cholecystectomy (08/13/22) Laparoscopic Cholecystectomy - Alexandro Alvarez, DO, FACS Status post correction of deviated nasal septum Family History Grandmother (Maternal) AAA (abdominal aortic aneurysm) Family history of diabetes mellitus Mother No problems noted. 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 Children do You have: 1 Feels Safe at Home: Yes Safety Concerns: Feels Safe At This Time Seatbelt Use: always Sunscreen Use: Yes Assistive Devices: None Review of Systems Review of Systems: REVIEW OF SYSTEMS: Constitutional: No fever, sweats or chills Eyes: No diplopia, no worsening or blurred vision ENT: normal hearing, no trouble swallowing Respiratory: (+) cough, sputum, No dyspnea at rest or on exertion Cardiovascular: No chest pain, tightness or palpitations Abdomen: No pain, nausea, vomiting, diarrhea or constipation Musculoskeletal: (+) leg pain and weakness, NO calf pain, swelling Neurologic: As above Psychiatric: No anxiety or depression Skin: No rash or itch Physical Exam Physical Exam: PHYSICAL EXAM: General: awake, alert, feels improved from earlier Head: Normocephalic, atraumatic ENT: PERRLA, EOMI, no pharyngeal exudate, mucous membranes dry Neuro: AAO x 3, speech clear and appropriate, strength intact bilaterally 5/5, sensation intact and equal all extremities and dermatomes, no pronator drift Chest: equal rise and fall of the chest, no accessory muscle use, no heaves or thrills, scattered ronchi with end expiratory wheeze on left Cardiac: Regular rate and rhythm, telemetry reviewed- NSR, skin warm dry, cap refill <3 seconds, peripheral pulses +2 no JVD, no murmur, no edema GI: NABS x 4 quadrants, soft, nontender to palpation, no rebound, guarding or tenderness :[place] to gravity, no pain, no CVA tenderness, urine improved to dilute yellow Skin: no rash or erythema Results & Data Results & Data ([facility]) Vital Signs (Past 12 Hours) Vital Signs Temp Pulse Resp BP Pulse Ox O2 Del Method O2 Flow Rate 01/09/23 20:46 97/59 L 01/09/23 20:46 75 12 100 Nasal Cannula 01/09/23 20:45 76 13 98 Nasal Cannula 01/09/23 20:42 97/65 L 01/09/23 20:42 76 16 97 Nasal Cannula 01/09/23 20:23 121/72 01/09/23 20:23 99 Nasal Cannula 2 01/09/23 20:16 75 30 H 92 Nasal Cannula 2 01/09/23 20:16 90/45 L 01/09/23 20:15 75 18 94 01/09/23 20:00 75 16 92 Nasal Cannula 2 01/09/23 20:00 109/61 01/09/23 19:48 106/65 01/09/23 19:48 72 17 97 Nasal Cannula 2 01/09/23 19:45 73 14 88 L Room Air 01/09/23 19:36 91/56 L 01/09/23 19:36 67 17 92 Room Air 01/09/23 19:30 68 17 93 Room Air 01/09/23 19:15 68 17 01/09/23 19:15 71/48 L 01/09/23 19:21 98 Nasal Cannula 2 01/09/23 19:01 36.9 C 15 71/42 L 90 Room Air 01/09/23 19:20 69 Laboratory Results Abnormal lab results 01/09/23 01/09/23 01/09/23 Range/Units 19:46 19:48 19:50 WBC 15.74 H (4.8-10.8) K/ul RBC 2.73 L (4.20-5.40) M/uL Hgb 9.2 L (12.0-16.0) g/dl POC Hgb 8.8 L (12.0-16.0) g/dl Hct 29.0 L (37.0-47.0) % POC Hct 26 L (37-47) % MCV 106.2 H (80.0-100.0) fL MCHC 31.7 L (32.0-36.0) g/dL RDW Std Deviation 64.0 H (36.4-46.3) fL RDW Coeff of Cheri 16.3 H (11.5-14.5) % Neut # (Auto) 13.26 H (1.40-6.50) K/uL Lymph # (Auto) 1.10 L (1.2-3.4) K/uL Kerr # (Auto) 1.12 H (0.11-0.59) K/uL PT (9.0-12.0) Seconds INR (0.9-1.1) APTT (21.0-31.0) Seconds VBG pH 7.09 L (7.36-7.41) VBG pCO2 58 H (38-50) mmHg POC Chloride 114 H (101-112) mmol/L Chloride (98-107) mmol/L Carbon Dioxide (21-32) mmol/L POC Total CO2 19 L (24-31) mmol/L POC Anion Gap 14.0 L (16-25) mmol/L POC BUN 92 H (7-18) mg/dl BUN (6-23) mg/dl Creatinine (0.6-1.2) mg/dl POC Creatinine 5.9 H* (0.6-1.3) mg/dl Glucose (70-99(Fasting)) mg/dl POC Glucose (other) 113 H (70-99) mg/dl Calcium (8.5-10.1) mg/dl POC Ioniz Calcium Kimberly 1.03 L (1.12-1.32) mmol/l Magnesium (1.7-2.4) mg/dl AST (13-39) U/L Total Creatine Kinase (26-192) U/L Troponin I High Sens (0-14) pg/ml Urine Appearance (Clear) Urine Protein (Negative) Urine Ketones (Negative) Urine Blood (Negative) Ur Leukocyte Esterase (Negative) Urine WBC (Auto) (0-5) /hpf U Hyaline Cast (Auto) (0-5) /lpf U Epithel Cells (Auto) (0-5) /lpf Urine Bacteria (Auto) (Negative) Urine Opiates Screen (Neg) 01/09/23 01/09/23 01/09/23 Range/Units 19:50 19:50 20:20 WBC (4.8-10.8) K/ul RBC (4.20-5.40) M/uL Hgb (12.0-16.0) g/dl POC Hgb (12.0-16.0) g/dl Hct (37.0-47.0) % POC Hct (37-47) % MCV (80.0-100.0) fL MCHC (32.0-36.0) g/dL RDW Std Deviation (36.4-46.3) fL RDW Coeff of Cheri (11.5-14.5) % Neut # (Auto) (1.40-6.50) K/uL Lymph # (Auto) (1.2-3.4) K/uL Kerr # (Auto) (0.11-0.59) K/uL PT 35.8 H (9.0-12.0) Seconds INR 3.6 H (0.9-1.1) APTT 43.3 H (21.0-31.0) Seconds VBG pH (7.36-7.41) VBG pCO2 (38-50) mmHg POC Chloride (101-112) mmol/L Chloride 109 H (98-107) mmol/L Carbon Dioxide 18 L (21-32) mmol/L POC Total CO2 (24-31) mmol/L POC Anion Gap (16-25) mmol/L POC BUN (7-18) mg/dl BUN 78 H (6-23) mg/dl Creatinine 5.46 H* (0.6-1.2) mg/dl POC Creatinine (0.6-1.3) mg/dl Glucose 117 H (70-99(Fasting)) mg/dl POC Glucose (other) (70-99) mg/dl Calcium 7.7 L (8.5-10.1) mg/dl POC Ioniz Calcium Kimberly (1.12-1.32) mmol/l Magnesium 1.4 L (1.7-2.4) mg/dl AST 49 H (13-39) U/L Total Creatine Kinase 2856 H (26-192) U/L Troponin I High Sens 70.3 H* (0-14) pg/ml Urine Appearance Cloudy A (Clear) Urine Protein 1+ H (Negative) Urine Ketones Trace H (Negative) Urine Blood 2+ H (Negative) Ur Leukocyte Esterase 2+ H (Negative) Urine WBC (Auto) >30 H (0-5) /hpf U Hyaline Cast (Auto) 5-10 H (0-5) /lpf U Epithel Cells (Auto) 10-20 H (0-5) /lpf Urine Bacteria (Auto) 1+ H (Negative) Urine Opiates Screen (Neg) 01/09/23 Range/Units 20:20 WBC (4.8-10.8) K/ul RBC (4.20-5.40) M/uL Hgb (12.0-16.0) g/dl POC Hgb (12.0-16.0) g/dl Hct (37.0-47.0) % POC Hct (37-47) % MCV (80.0-100.0) fL MCHC (32.0-36.0) g/dL RDW Std Deviation (36.4-46.3) fL RDW Coeff of Cheri (11.5-14.5) % Neut # (Auto) (1.40-6.50) K/uL Lymph # (Auto) (1.2-3.4) K/uL Kerr # (Auto) (0.11-0.59) K/uL PT (9.0-12.0) Seconds INR (0.9-1.1) APTT (21.0-31.0) Seconds VBG pH (7.36-7.41) VBG pCO2 (38-50) mmHg POC Chloride (101-112) mmol/L Chloride (98-107) mmol/L Carbon Dioxide (21-32) mmol/L POC Total CO2 (24-31) mmol/L POC Anion Gap (16-25) mmol/L POC BUN (7-18) mg/dl BUN (6-23) mg/dl Creatinine (0.6-1.2) mg/dl POC Creatinine (0.6-1.3) mg/dl Glucose (70-99(Fasting)) mg/dl POC Glucose (other) (70-99) mg/dl Calcium (8.5-10.1) mg/dl POC Ioniz Calcium Kimberly (1.12-1.32) mmol/l Magnesium (1.7-2.4) mg/dl AST (13-39) U/L Total Creatine Kinase (26-192) U/L Troponin I High Sens (0-14) pg/ml Urine Appearance (Clear) Urine Protein (Negative) Urine Ketones (Negative) Urine Blood (Negative) Ur Leukocyte Esterase (Negative) Urine WBC (Auto) (0-5) /hpf U Hyaline Cast (Auto) (0-5) /lpf U Epithel Cells (Auto) (0-5) /lpf Urine Bacteria (Auto) (Negative) Urine Opiates Screen Pos H (Neg) Diagnostic Findings Chest X-Ray 01/09/23 19:21 XR chest 1V portable HISTORY: 72 years-old Female Sepsis acute sepsis COMPARISON: Chest radiograph 12/07/2022 TECHNIQUE: AP view of the chest FINDINGS: Cardiac silhouette is enlarged. Hypoinflation with pulmonary vascular congestion. Left basilar opacity, likely summation density. No pneumothorax, large pleural effusion or lobar airspace consolidation. Degenerative changes of the shoulders and spine. IMPRESSION: Cardiomegaly with hypoinflation. ACT 112: Negative or not required by law. The above report was generated using voice recognition software. It may contain grammatical, syntax or spelling errors. Electronically signed by: Tico Vega M.D. 01/09/2023 8:[address] 01/09/23 19:22 CT head/brain wo con CLINICAL HISTORY: 72 years-old Female with ams. Acutely altered mental status. TECHNIQUE: Multiple axial CT images of the head were obtained without contrast. A dose lowering technique was utilized adhering to the principles of ALARA. CT DOSE: 537.48 mGy.cm COMPARISON: Head CT 12/07/2022 FINDINGS: No acute intracranial hemorrhage, midline shift, intracranial mass, hydrocephalus, territorial ischemia or abnormal extra-axial collection. Previously noted trace subarachnoid hemorrhage within the right cerebral hemisphere is not definitively seen on today's study. Evolving subacute infarcts of the right cerebral hemisphere, notably within the right occipital lobe. Mild chronic microvascular ischemic disease. The calvarium is intact. Large right greater than left mastoid effusions with fluid also noted within the middle ear cavities, similar to prior. Paranasal sinuses are generally clear. IMPRESSION: 1. No acute intracranial abnormality. 2. Expected evolution of the subacute infarcts within the right cerebral hemisphere, largest within the occipital lobe. 3. The previously noted trace subarachnoid hemorrhage of the right cerebral hemisphere is not definitively seen on today's study. ACT 112: Negative or not required by law. The above report was generated using voice recognition software. It may contain grammatical, syntax or spelling errors. Electronically signed by: Tico Vega M.D. 01/09/2023 8:39 PM Medications Administered Home Medications cholecalciferol (vitamin D3) 50 mcg (2,000 unit) capsule 50 mcg PO QAM 01/06/22 [History Confirmed 01/09/23] acetaminophen 325 mg tablet 650 mg PO Q6H PRN pain, mild 02/08/22 [History Confirmed 01/09/23] anastrozole 1 mg tablet 1 mg PO QAM 02/08/22 [History Confirmed 01/09/23] multivitamin with minerals 1 cap PO QAM 02/08/22 [History Confirmed 01/09/23] losartan 100 mg tablet 100 mg PO QAM #90 tabs 05/30/22 [Rx Confirmed 01/09/23] omeprazole 20 mg capsule,delayed release 20 mg PO QAM #90 caps 07/23/22 [Rx Confirmed 01/09/23] Ibrance 1 dose PO DIRECTED 08/12/22 [History Confirmed 01/09/23] calcium carbonate 600 mg-vitamin D3 10 mcg (400 unit) tablet (Calcium 600 + D(3)) 1 tab PO QAM 08/12/22 [History Confirmed 01/09/23] hydromorphone 8 mg tablet 4 mg PO Q4 PRN Pain, Severe 08/12/22 [History Confirmed 01/09/23] magnesium 250 mg tablet 250 mg PO DAILY 08/12/22 [History Confirmed 01/09/23] venlafaxine 150 mg capsule,extended release 24 hr 150 mg PO QAM #90 caps 09/04/22 [Rx Confirmed 01/09/23] rosuvastatin 5 mg tablet 5 mg PO DAILY #90 tabs 10/03/22 [Rx Confirmed 01/09/23] clonazepam 1 mg tablet 1 mg PO TID #90 tabs 10/22/22 [Rx Confirmed 01/09/23] venlafaxine 75 mg capsule,extended release 24 hr 75 mg PO QAM 12/01/22 [History Confirmed 01/09/23] cephalexin 500 mg capsule 500 mg PO BID 01/09/23 [History Confirmed 01/09/23] gabapentin 300 mg capsule 600 mg PO TID 01/09/23 [History Confirmed 01/09/23] metoprolol succinate 50 mg tablet,extended release 24 hr 50 mg PO DAILY 01/09/23 [History Confirmed 01/09/23] warfarin 5 mg tablet 5 mg PO QPM 01/09/23 [History Confirmed 01/09/23] Active Medications Sodium Chloride (Nss 1000ml) 1,000 mls @ 125 mls/hr IV .Q8H VI Stop: 02/08/23 20:44 Last Admin: 01/09/23 21:05 Dose: 125 mls/hr Calcium Gluconate () 1,000 mg in 60 mls @ 240 mls/hr IV Q15M VI Stop: 01/09/23 22:14 Last Admin: 01/09/23 22:04 Dose: 240 mls/hr Magnesium Sulfate/Dextrose (Magnesium Sulfate / D5w) 1 gm in 100 mls @ 50 mls/hr IV Q2H VI Stop: 01/10/23 03:44 Last Admin: 01/09/23 22:00 Dose: 50 mls/hr Parenteral Electrolytes (Normosol-R) 1,000 mls @ 110 mls/hr IV .Q9H6M [facility] Stop: 02/08/23 21:44 ECG Additional Comments: Normal sinus rhythm Left axis deviation Moderate voltage criteria for LVH, may be normal variant Inferior infarct (cited on or before 02-DEC-2022) Abnormal ECG When compared with ECG of 09-JAN-2023 19:23, (unconfirmed) No significant change was found Code Status & VTE Plan VTE Prophylaxis Plan VTE Prophylaxis will be ordered: Yes Supervising Physician Co-Signing Physician Notes Attending addendum: I have physically seen this patient, have supervised the TOY's activities, and agree with the H&P unless as otherwise noted. Assessment and Plan: Acute metabolic encephalopathy- Follow all cultures Likely pulmonary source IV antibiotics as noted Pulse ox 94% with nasal cannula oxygen Elevated troponin/left ventricular apical thrombus/hypertension/atrial for with RVR/cardiomyopathy- The patient will be admitted to telemetry for serial cardiac enzymes, serial EKG's, cardiac rhythm monitoring Continue metoprolol succinate INR mildly supratherapeutic at 3.6. Hold warfarin and recheck laboratories in a.m. Acute kidney injury on CKD- Creatinine 5.46 on admission with base 3-4 IV fluids as noted Hold losartan Repeat laboratories in a.m. Diabetes mellitus type 2- Placed on Accu-Cheks with NovoLog SSI Metabolic acidosis-nongap Adjusting medications as noted IV fluids as noted Follow serial laboratories Hyperlipidemia- Continue rosuvastatin Hypomagnesemia- Magnesium 1.4 admission replace IV and oral, and recheck laboratories in a.m. GERD- Continue omeprazole/pantoprazole Remaining orders and notations as noted PG Care Time/CCT Total # of Minutes Spent Total Time Spent with Patient: Total time spent is greater than 50% in coordination of care (as documented) at patient's floor/unit and/or counseling patient: Coding Level of Care Code 32566 INT INP/OBS CARE 3/75MIN Diagnoses Acute metabolic encephalopathy G93.41 Acute kidney injury N17.9 Muscle weakness M62.81 Metabolic acidosis E87.20 Abnormal chest xray R93.89 Left ventricular apical thrombus I51.3 Cancer related pain G89.3 Hypertension I10 Type II diabetes mellitus E11.9 Vitamin D deficiency E55.9
[2023-01-09 23:10] LABS: Influenza A virus by PCR Negative (Neg); Influenza B virus by PCR Negative (Neg); RSV by PCR Negative (Neg); SARS CoV2 RNA(COVID-19) Ceph NEGATIVE (Negative)
[2023-01-09 23:53] LABS: BUN Creatinine Ratio 15.6 (10-20); Calcium 7.3 mg/dl (8.5-10.1); Est GFR (Non-African American) 9.5 ml/min; Potassium 4.4 mmol/L (3.5-5.1)
[2023-01-10] MEDS ORDERED: STAT IV STA (00:53)
[2023-01-10] MEDS ORDERED: CARBOHYDRATES FOR HYPOGLYCEMIA PO PRN (00:53)
[2023-01-10] MEDS ORDERED: ACETAMINOPHEN 325 MG TAB PO PRN (00:53)
[2023-01-10] MEDS ORDERED: POLYETHYLENE (MIRALAX) 17 GM PACK PO PRN (00:53)
[2023-01-10] MEDS ORDERED: DEXTROSE 50% 50 ML SYRINGE IV PRN (00:53)
[2023-01-10] MEDS ORDERED: GLUCAGON FOR INJ 1 MG VIAL SQ PRN (00:53)
[2023-01-10] MEDS ORDERED: ONDANSETRON INJ 2 MG/ML 2 ML VIAL IV PRN (00:53)
[2023-01-10] MEDS ORDERED: GLUCOSE 40% GEL 15 GM TUBE PO PRN (00:53)
[2023-01-10] MEDS ORDERED: GLUCOSE 10 TAB/TUBE PO PRN (00:53)
[2023-01-10] MEDS: SODIUM BICARBONATE 8.4% 150 MEQ in DEXTROSE 5% 1,000 ML IV SCH ×2 (01:56→15:45)
[2023-01-10] MEDS: MAGNESIUM SULFATE / D5W 1 GM/100 ML BAG IV SCH (02:22)
[2023-01-10] MEDS ORDERED: INFLUENZA VACCINE HIGH DOSE PF 65+ 0.7 ML SYR IM ONE (03:19)
[2023-01-10 07:38] LABS: Basophils # (auto) 0.04 K/uL (0-0.2); Basophils % (auto) 0.4 %; Eosinophils # (auto) 0.12 K/uL (0-0.50); Eosinophils % (auto) 1.1 %; Hematocrit (blood only) 24.6 % (37.0-47.0); Immature Granulocytes # (auto) 0.11 K/uL (0.01-0.20); Lymphocytes # (auto) 1.15 K/uL (1.2-3.4); Lymphocytes % (auto) 10.2 %; Mean Corpuscular Hemoglobin 33.9 pg (25.0-34.0); Mean Corpuscular Hgb Conc 32.5 g/dL (32.0-36.0); Mean Corpuscular Volume 104.2 fL (80.0-100.0); Mean Platelet Volume 10.1 fL (9.4-12.4); Monocytes # (auto) 0.86 K/uL (0.11-0.59); Monocytes % (auto) 7.6 %; Neutrophils # (auto) 9.03 K/uL (1.40-6.50); Neutrophils % (auto) 79.7 %; Platelet Count 188 K/uL (130-400); RDW Coefficient of Variation 16.5 % (11.5-14.5); RDW Standard Deviation 62.8 fL (36.4-46.3); Red Blood Count 2.36 M/uL (4.20-5.40); White Blood Count 11.31 K/ul (4.8-10.8)
[2023-01-10 07:49] LABS: BUN Creatinine Ratio 17.2 (10-20); Calcium 7.2 mg/dl (8.5-10.1); Creatinine Clr Calc Pharmacy 14.7 ml/min; Est GFR (African American) 14.3 ml/min; Est GFR (Non-African American) 12.3 ml/min; Magnesium 2.3 mg/dl (1.7-2.4); Potassium 4.2 mmol/L (3.5-5.1)
[2023-01-10] MEDS: GABAPENTIN 300 MG CAP PO SCH (08:11)
[2023-01-10] MEDS: CALCIUM 600MG + VIT D 400 IU TAB PO SCH (08:11)
[2023-01-10] MEDS: PANTOprazole 40 MG TAB PO SCH (08:11)
[2023-01-10] MEDS: ANASTROZOLE 1 MG TAB PO SCH (08:11)
[2023-01-10 08:12] LABS: INR 4.4 (0.9-1.1)
[2023-01-10] MEDS: CEFEPIME 1,000 MG in SYRINGE 0 ML IV SCH ×2 (08:19→21:35)
[2023-01-10] MEDS ORDERED: METOPROLOL SUCC 50MG EXT REL TAB PO SCH (09:00)
[2023-01-10] MEDS ORDERED: GABAPENTIN 300 MG CAP PO SCH (09:00)
[2023-01-10 09:08] LABS: HCO3 VBG 17 mmol/L; Oxygen Saturation VBG 71.4 %; PCO2 VBG 46 mmHg (38-50); PO2 VBG 42 mmHg; pH VBG 7.18 (7.36-7.41)
[2023-01-10] MEDS: INSULIN ASPART PER UNIT SC SCH ×4 (09:32→20:12)
--- NOTE | 2023-01-10 10:56 | Hospitalist Progress Note ---
Date of Service January 10, 2023 Assessment & Plan (1) Acute metabolic encephalopathy: Plan: likely 2nd to acute renal failure and acidosis from such. mild hypercapnea noted on blood gas as well which would contribute as well. after speaking with her son it appears she took at least 3 tabs of 8mg dilaudid orally at home thus toxic encephalopathy also possible. gabapentin may have caused confusion at home given the large dose she was taking. can't rule out misuse of clonazepam. thus far can't rule out infectious process - remains on empiric abx until cultures have resulted. I suspect her cxr findings are reflective of her prior pneumonia when she was on the ventilator earlier this year at [facility]. she has minimal symptoms at this time of active pneumonia. TSH checked - wnl. Cortisol satisfactory. ammonia level wnl. mental status has improved since hospital admission with improvement in her acute renal failure. (2) Acute kidney injury: Plan: ARNALDO on CKD. Per records when she left [facility] her creatinine was low 3's. While at [facility] records suggest creatinine had improved to about 2. Presented yesterday with Cr of 5.46. Differential - rhabdomyolysis vs hypovolemia vs ATN vs obstructive vs other. Cont current IVF (bicarbonate infusion). Renal u/s - r/o obstruction. Cont martinez. Serial CPKs. BMP later today then again in am. Hold any nephrotoxic agents. Gabapentin dose has been appropriately reduced from 600mg TID to 300mg daily. (3) Muscle weakness: Plan: Likely multifactorial - hypomagnesemia, hypocalcemia, critical illness myopathy, active rhabdomyolysis, prior strokes, deconditioning, etc. Can't rule out infectious process yet. TSH and cortisol wnl. Cont IV fluids. Serial CPK. Hold statin. Consider repeat MRI brain. PT, OT. (4) Metabolic acidosis: Plan: 2nd to acute renal failure. Should improve with correction of her ARNALDO. Repeat pH this afternoon was improved. BMP improved. (5) Abnormal chest xray: Plan: LLL opacity on admission cxr. Uncertain if truly pneumonia process vs atelectasis vs resolving infiltrates from her prior stay at [facility]. Records from here in 11/2022 show she had RLL MSSA pneumonia. Records from [place] state her pneumonia was b/l. She is on empiric cefepime + zyvox at this time. Consider repeat chest imaging tomorrow. (6) Left ventricular apical thrombus: Plan: diagnosed 11/2022 here at [facility] records indicate at [place] that thrombus improved in size while at their medical center repeat echo here has been ordered INR is supratherapeutic - hold coumadin, repeat INR am (7) Cancer related pain: Plan: Known metastatic breast ca with mets to bone Decrease her gabapentin to daily dosing from TID dosing due to ARNALDO Of note - I reviewed her [facility] records and based on what I can see her dilaudid was stopped/weaned off while rehabbing there However, her son confirms she took 3 tabs of Dilaudid at home (this was left over from old prescription - PDMP shows last refill was 10/2022) This has been previously prescribed by palliative care (8) Hypertension: Plan: HOLD both her beta betty and ARB due to hypotension / low-normal BPs (9) Subarachnoid hemorrhage: Plan: discovered 12/05/22 at [facility] this never needed intervention at [place] by neurosurgery appears resolved on CT head 01/09/23 (10) Embolic stroke: Plan: 12/05/22 at [facility] - MRI brain at that time showed strokes in the right occipital lobe, right thalamus, right temporal lobe, right cerebellar hemisphere, high right frontal parietal cortex, high left parietal cortex, and a punctate stroke in the left occipital cortex. Presumed embolic from her LV thrombus. Her strokes were associated with SAH over the right brain. Again she was ultimately transferred to [facility]. Now on coumadin for her LV thrombus and h/o strokes along with PAF. (11) Cardiomyopathy: Plan: Early November 2022 discovered to have severe cardiomyopathy with EF 25-30% and large LV thrombus. During her stay at [facility] her LV function improved. Records suggest it climbed back to 60% EF. Will repeat her echo here to check LV EF, RV function, and status of thrombus. Hold BB and ARB due to hypotension but resume when able. At this time I see no evidence of volume overload. (12) Depression with anxiety: Plan: Was on clonazepam 1mg TID at home along with Effexor 225mg daily. Need to resume soon to avoid benzo withdrawal. Effexor is chronic dating back to at least early 2021. PDMP shows she has been on clonazepam at least since early 2020. Will need to resume gustavo. Records show it was resumed upon d/c from [facility]. (13) Hyperlipidemia: Plan: HOLD statin due to rhabdomyolysis. (14) History of breast cancer: Plan: b/l, with b/l mastectomies. recurrence with known bone mets. palliative care follows as outpatient for pain management. hold dilaudid at this time. cont anastrozole 1mg daily ibrance was placed on hold upon d/c from [place], and records from [facility] show it was not continued there either. (15) Macrocytic anemia: Plan: TSH wnl Previous B12 level very robust Check folate level am did receive PRBCs 1 unit while at [place] Hb was about the same (8s) while at [place] (16) Muscle, jerky movements (uncontrolled): Plan: left arm myoclonus ? focal seizure ? given her known extensive right sided CVAs she is at risk of seizure. obtain EEG. (17) Rhabdomyolysis: Plan: 2nd to fall at home? son did state she was found on the floor at home once; uncertain how much time she was on floor and the details of whether it was a fall, etc. 2nd to statin? cont IVF. hold statin. repeat CPK am. (18) Hypomagnesemia: Plan: replaced resolved (19) Type II diabetes mellitus: Plan: Sliding scale coverage w/ novolog only last a1c was <6% in 08/2022 doubt she will need much coverage (20) DVT prophylaxis: Plan: coumadin daily INR Plan spoke with pt's son by phone extensive update given to him he expressed concerns about her living alone, and that his family cannot continue to provide the care she needs as he has young children, he works FT, etc PT, OT, speech evals ordered total time today about 80 minutes - extensive chart review (reviewed all records from [place] and [facility]), bedside eval, ordering tests/labs, management of ARNALDO, speaking with son, etc. very complex care coordination with extensive PMH and recent critical illness Admission and Anticipated Discharge Date Admission Date: January 09, 2023 Subjective patient sitting in chair during the visit she was largely comfortable she complained that she felt weak ate fair at breakfast denies feeling short of breath minimal cough remembers her time at [facility] admits things didn't go well at home after d/c from [facility] throughout the visit her left arm would shake/quickly flex she states she has no control over it; lasts sometimes for 2-3 minutes then resolves does not have this in the right arm does not have this in the left arm when asked if she fell at home she couldn't tell me for sure but remembers bumping into the wall when she was walking past her grandchild telemetry overnight - NSR Review of Systems Review of Systems: gen - denies fevers, denies rigors but states "I'm always cold" cv - no chest pain pulm - no dyspnea at rest GI - no abd pain, no vomiting - martinez in place, draining clear yellow urine musculo - denies myalgias neuro - denies headache Physical Exam Physical Exam: gen - awake, alert; sitting in chair; mildly confused; looks chronically ill mouth - MMM neck - no JVD sitting upright at 90 degrees heart - RRR, s1 s2 lungs - scant dry rales bases, CTA b/l apices, no increased work of breathing abd - soft NT ND BS+ ext - <1+ edema b/l, pulses 2+ b/l psych - oriented to person, place ([facility]), but not time neuro - myoclonus vs focal seizure activity of left arm only; strength 5/5 b/l o f arms & legs Results & Data Results & Data ([facility]) Vital Signs (Past 12 Hours) Vital Signs Temp Pulse Pulse Resp BP BP Pulse Ox 01/10/23 07:30 72 01/10/23 07:30 01/10/23 07:20 36.6 C 72 16 103/60 97 01/10/23 03:02 36.3 C L 80 18 99/59 L 99 01/10/23 02:47 36.4 C L 78 18 106/68 99 01/10/23 02:47 78 01/10/23 02:27 01/10/23 01:00 79 18 98/58 L 90 01/10/23 00:45 79 17 01/10/23 00:30 78 13 93/57 L 96 01/10/23 00:54 79 01/10/23 00:15 78 13 86/56 L 98 01/10/23 00:00 79 13 91/62 L 91 01/09/23 23:45 78 15 97/55 L 97 01/09/23 23:30 79 15 103/62 01/09/23 23:15 78 20 101/52 L 100 01/09/23 23:00 80 12 105/60 92 01/09/23 23:26 78 O2 Del Method O2 Flow Rate 01/10/23 07:30 01/10/23 07:30 Nasal Cannula 3 01/10/23 07:20 Nasal Cannula 2 01/10/23 03:02 Nasal Cannula 01/10/23 02:47 Nasal Cannula 3 01/10/23 02:47 01/10/23 02:27 Nasal Cannula 3 01/10/23 01:00 01/10/23 00:45 01/10/23 00:30 01/10/23 00:54 01/10/23 00:15 01/10/23 00:00 01/09/23 23:45 01/09/23 23:30 01/09/23 23:15 01/09/23 23:00 01/09/23 23:26 Laboratory Results Laboratory Results - last 24 hr 01/09/23 01/09/23 01/09/23 19:46 19:46 19:46 WBC RBC Hgb POC Hgb Hct POC Hct MCV MCH MCHC RDW Std Deviation RDW Coeff of Cheri Plt Count MPV Immature Gran % (Auto) Neut % (Auto) Lymph % (Auto) Knott % (Auto) Eos % (Auto) Baso % (Auto) Neut # (Auto) Lymph # (Auto) Knott # (Auto) Eos # (Auto) Baso # (Auto) Immature Gran # (Auto) PT INR APTT PTT Ratio VBG pH 7.09 L VBG pCO2 58 H VBG pO2 26 VBG HCO3 18 VBG O2 Saturation < 60.0 VBG Base Excess -12.6 POC Sodium Sodium POC Potassium Potassium POC Chloride Chloride Carbon Dioxide POC Total CO2 Anion Gap POC Anion Gap POC BUN BUN Creatinine POC Creatinine Est Cr Clr Drug Dosing Est GFR ( Amer) Est GFR (Non-Af Amer) BUN/Creatinine Ratio Glucose POC Glucose POC Glucose (other) Lactate Calcium POC Ioniz Calcium Kimberly Magnesium Total Bilirubin Direct Bilirubin AST ALT Alkaline Phosphatase Ammonia Total Creatine Kinase Troponin I High Sens Total Protein Albumin Lipase Procalcitonin TSH Random Cortisol Urine Color Urine Appearance Urine pH Ur Specific [place] Urine Protein Urine Glucose (UA) Urine Ketones Urine Blood Urine Nitrite Urine Bilirubin Urine Urobilinogen Ur Leukocyte Esterase Urine WBC (Auto) Urine RBC (Auto) U Hyaline Cast (Auto) U Epithel Cells (Auto) Urine Bacteria (Auto) Urine Yeast Nasal Screen MRSA (PCR) Urine Opiates Screen U Codeine Confrm GC/MS Ur Morphine (GC/MS) Ur Hydrocodone (GC/MS) Ur Norhydrocodone Ur Noroxycodone Urine Oxycodone (GC/MS) U Oxymorphone GC/MS Ur Methadone, Qual Ur Hydromorphone (GC/MS) Urine Barbiturates Ur Phencyclidine (PCP) U Amphetamin/Meth Scrn MDMA (Ecstasy) Screen U Benzodiazepines Scrn Ur Cocaine Metabolite U Marijuana (THC) Screen Drug Screen Comment Ethyl Alcohol mg/dL < 10.0 SARS-CoV-2 (PCR) Influenza Type A (PCR) Influenza Type B (PCR) RSV (RT-PCR) Blood Type AB Negative Antibody Screen NEGATIVE 01/09/23 01/09/23 01/09/23 19:48 19:50 19:50 WBC 15.74 H RBC 2.73 L Hgb 9.2 L POC Hgb 8.8 L Hct 29.0 L POC Hct 26 L MCV 106.2 H MCH 33.7 MCHC 31.7 L RDW Std Deviation 64.0 H RDW Coeff of Cheri 16.3 H Plt Count 215 MPV 10.6 Immature Gran % (Auto) 1.0 Neut % (Auto) 84.2 Lymph % (Auto) 7.0 Knott % (Auto) 7.1 Eos % (Auto) 0.4 Baso % (Auto) 0.3 Neut # (Auto) 13.26 H Lymph # (Auto) 1.10 L Knott # (Auto) 1.12 H Eos # (Auto) 0.06 Baso # (Auto) 0.05 Immature Gran # (Auto) 0.15 PT 35.8 H INR 3.6 H APTT 43.3 H PTT Ratio 1.6 VBG pH VBG pCO2 VBG pO2 VBG HCO3 VBG O2 Saturation VBG Base Excess POC Sodium 140 Sodium POC Potassium 5.0 Potassium POC Chloride 114 H Chloride Carbon Dioxide POC Total CO2 19 L Anion Gap POC Anion Gap 14.0 L POC BUN 92 H BUN Creatinine POC Creatinine 5.9 H* Est Cr Clr Drug Dosing Est GFR ( Amer) Est GFR (Non-Af Amer) BUN/Creatinine Ratio Glucose POC Glucose POC Glucose (other) 113 H Lactate Calcium POC Ioniz Calcium Kimberly 1.03 L Magnesium Total Bilirubin Direct Bilirubin AST ALT Alkaline Phosphatase Ammonia Total Creatine Kinase Troponin I High Sens Total Protein Albumin Lipase Procalcitonin TSH Random Cortisol Urine Color Urine Appearance Urine pH Ur Specific [place] Urine Protein Urine Glucose (UA) Urine Ketones Urine Blood Urine Nitrite Urine Bilirubin Urine Urobilinogen Ur Leukocyte Esterase Urine WBC (Auto) Urine RBC (Auto) U Hyaline Cast (Auto) U Epithel Cells (Auto) Urine Bacteria (Auto) Urine Yeast Nasal Screen MRSA (PCR) Urine Opiates Screen U Codeine Confrm GC/MS Ur Morphine (GC/MS) Ur Hydrocodone (GC/MS) Ur Norhydrocodone Ur Noroxycodone Urine Oxycodone (GC/MS) U Oxymorphone GC/MS Ur Methadone, Qual Ur Hydromorphone (GC/MS) Urine Barbiturates Ur Phencyclidine (PCP) U Amphetamin/Meth Scrn MDMA (Ecstasy) Screen U Benzodiazepines Scrn Ur Cocaine Metabolite U Marijuana (THC) Screen Drug Screen Comment Ethyl Alcohol mg/dL SARS-CoV-2 (PCR) Influenza Type A (PCR) Influenza Type B (PCR) RSV (RT-PCR) Blood Type Antibody Screen 01/09/23 01/09/23 01/09/23 19:50 19:50 19:50 WBC RBC Hgb POC Hgb Hct POC Hct MCV MCH MCHC RDW Std Deviation RDW Coeff of Cheri Plt Count MPV Immature Gran % (Auto) Neut % (Auto) Lymph % (Auto) Knott % (Auto) Eos % (Auto) Baso % (Auto) Neut # (Auto) Lymph # (Auto) Knott # (Auto) Eos # (Auto) Baso # (Auto) Immature Gran # (Auto) PT INR APTT PTT Ratio VBG pH VBG pCO2 VBG pO2 VBG HCO3 VBG O2 Saturation VBG Base Excess POC Sodium Sodium 138 POC Potassium Potassium 4.7 POC Chloride Chloride 109 H Carbon Dioxide 18 L POC Total CO2 Anion Gap 11 POC Anion Gap POC BUN BUN 78 H Creatinine 5.46 H* POC Creatinine Est Cr Clr Drug Dosing Not Reportable Est GFR ( Amer) 8.5 Est GFR (Non-Af Amer) 7.3 BUN/Creatinine Ratio 14.3 Glucose 117 H POC Glucose POC Glucose (other) Lactate 0.7 Calcium 7.7 L POC Ioniz Calcium Kimberly Magnesium 1.4 L Total Bilirubin 0.3 Direct Bilirubin 0.0 AST 49 H ALT 17 Alkaline Phosphatase 60 Ammonia Total Creatine Kinase 2856 H Troponin I High Sens 70.3 H* Total Protein 7.5 Albumin 3.8 Lipase 29 Procalcitonin 0.19 TSH Random Cortisol Urine Color Urine Appearance Urine pH Ur Specific [place] Urine Protein Urine Glucose (UA) Urine Ketones Urine Blood Urine Nitrite Urine Bilirubin Urine Urobilinogen Ur Leukocyte Esterase Urine WBC (Auto) Urine RBC (Auto) U Hyaline Cast (Auto) U Epithel Cells (Auto) Urine Bacteria (Auto) Urine Yeast Nasal Screen MRSA (PCR) Urine Opiates Screen U Codeine Confrm GC/MS Ur Morphine (GC/MS) Ur Hydrocodone (GC/MS) Ur Norhydrocodone Ur Noroxycodone Urine Oxycodone (GC/MS) U Oxymorphone GC/MS Ur Methadone, Qual Ur Hydromorphone (GC/MS) Urine Barbiturates Ur Phencyclidine (PCP) U Amphetamin/Meth Scrn MDMA (Ecstasy) Screen U Benzodiazepines Scrn Ur Cocaine Metabolite U Marijuana (THC) Screen Drug Screen Comment Ethyl Alcohol mg/dL SARS-CoV-2 (PCR) Influenza Type A (PCR) Influenza Type B (PCR) RSV (RT-PCR) Blood Type Antibody Screen 01/09/23 01/09/23 01/09/23 20:20 20:20 20:20 WBC RBC Hgb POC Hgb Hct POC Hct MCV MCH MCHC RDW Std Deviation RDW Coeff of Cheri Plt Count MPV Immature Gran % (Auto) Neut % (Auto) Lymph % (Auto) Knott % (Auto) Eos % (Auto) Baso % (Auto) Neut # (Auto) Lymph # (Auto) Knott # (Auto) Eos # (Auto) Baso # (Auto) Immature Gran # (Auto) PT INR APTT PTT Ratio VBG pH VBG pCO2 VBG pO2 VBG HCO3 VBG O2 Saturation VBG Base Excess POC Sodium Sodium POC Potassium Potassium POC Chloride Chloride Carbon Dioxide POC Total CO2 Anion Gap POC Anion Gap POC BUN BUN Creatinine POC Creatinine Est Cr Clr Drug Dosing Est GFR ( Amer) Est GFR (Non-Af Amer) BUN/Creatinine Ratio Glucose POC Glucose POC Glucose (other) Lactate Calcium POC Ioniz Calcium Kimberly Magnesium Total Bilirubin Direct Bilirubin AST ALT Alkaline Phosphatase Ammonia Total Creatine Kinase Troponin I High Sens Total Protein Albumin Lipase Procalcitonin TSH Random Cortisol Urine Color Yellow Urine Appearance Cloudy A Urine pH 5.0 Ur Specific [place] 1.020 Urine Protein 1+ H Urine Glucose (UA) Negative Urine Ketones Trace H Urine Blood 2+ H Urine Nitrite Negative Urine Bilirubin Negative Urine Urobilinogen Negative Ur Leukocyte Esterase 2+ H Urine WBC (Auto) >30 H Urine RBC (Auto) 0-4 U Hyaline Cast (Auto) 5-10 H U Epithel Cells (Auto) 10-20 H Urine Bacteria (Auto) 1+ H Urine Yeast Not Reportable Nasal Screen MRSA (PCR) Urine Opiates Screen Pos H U Codeine Confrm GC/MS Pending Ur Morphine (GC/MS) Pending Ur Hydrocodone (GC/MS) Pending Ur Norhydrocodone Pending Ur Noroxycodone Pending Urine Oxycodone (GC/MS) Pending U Oxymorphone GC/MS Pending Ur Methadone, Qual Neg Ur Hydromorphone (GC/MS) Pending Urine Barbiturates Neg Ur Phencyclidine (PCP) Neg U Amphetamin/Meth Scrn Neg MDMA (Ecstasy) Screen Neg U Benzodiazepines Scrn Neg Ur Cocaine Metabolite Neg U Marijuana (THC) Screen Neg Drug Screen Comment Pending Ethyl Alcohol mg/dL SARS-CoV-2 (PCR) Influenza Type A (PCR) Influenza Type B (PCR) RSV (RT-PCR) Blood Type Antibody Screen 01/09/23 01/09/23 01/09/23 22:15 23:27 23:27 WBC RBC Hgb POC Hgb Hct POC Hct MCV MCH MCHC RDW Std Deviation RDW Coeff of Cheri Plt Count MPV Immature Gran % (Auto) Neut % (Auto) Lymph % (Auto) Knott % (Auto) Eos % (Auto) Baso % (Auto) Neut # (Auto) Lymph # (Auto) Knott # (Auto) Eos # (Auto) Baso # (Auto) Immature Gran # (Auto) PT INR APTT PTT Ratio VBG pH 7.10 L VBG pCO2 VBG pO2 VBG HCO3 VBG O2 Saturation VBG Base Excess POC Sodium Sodium 138 POC Potassium Potassium 4.4 POC Chloride Chloride 115 H Carbon Dioxide 16 L POC Total CO2 Anion Gap 7 POC Anion Gap POC BUN BUN 69 H Creatinine 4.42 H D POC Creatinine Est Cr Clr Drug Dosing 12.0 Est GFR ( Amer) 11.0 Est GFR (Non-Af Amer) 9.5 BUN/Creatinine Ratio 15.6 Glucose 151 H POC Glucose POC Glucose (other) Lactate Calcium 7.3 L POC Ioniz Calcium Kimberly Magnesium Total Bilirubin Direct Bilirubin AST ALT Alkaline Phosphatase Ammonia Total Creatine Kinase Troponin I High Sens Total Protein Albumin Lipase Procalcitonin TSH Random Cortisol Urine Color Urine Appearance Urine pH Ur Specific [place] Urine Protein Urine Glucose (UA) Urine Ketones Urine Blood Urine Nitrite Urine Bilirubin Urine Urobilinogen Ur Leukocyte Esterase Urine WBC (Auto) Urine RBC (Auto) U Hyaline Cast (Auto) U Epithel Cells (Auto) Urine Bacteria (Auto) Urine Yeast Nasal Screen MRSA (PCR) Urine Opiates Screen U Codeine Confrm GC/MS Ur Morphine (GC/MS) Ur Hydrocodone (GC/MS) Ur Norhydrocodone Ur Noroxycodone Urine Oxycodone (GC/MS) U Oxymorphone GC/MS Ur Methadone, Qual Ur Hydromorphone (GC/MS) Urine Barbiturates Ur Phencyclidine (PCP) U Amphetamin/Meth Scrn MDMA (Ecstasy) Screen U Benzodiazepines Scrn Ur Cocaine Metabolite U Marijuana (THC) Screen Drug Screen Comment Ethyl Alcohol mg/dL SARS-CoV-2 (PCR) NEGATIVE Influenza Type A (PCR) Negative Influenza Type B (PCR) Negative RSV (RT-PCR) Negative Blood Type Antibody Screen 01/09/23 01/10/23 01/10/23 23:57 07:06 07:06 WBC 11.31 H RBC 2.36 L Hgb 8.0 L POC Hgb Hct 24.6 L POC Hct MCV 104.2 H MCH 33.9 MCHC 32.5 RDW Std Deviation 62.8 H RDW Coeff of Cheri 16.5 H Plt Count 188 MPV 10.1 Immature Gran % (Auto) 1.0 Neut % (Auto) 79.7 Lymph % (Auto) 10.2 Knott % (Auto) 7.6 Eos % (Auto) 1.1 Baso % (Auto) 0.4 Neut # (Auto) 9.03 H Lymph # (Auto) 1.15 L Knott # (Auto) 0.86 H Eos # (Auto) 0.12 Baso # (Auto) 0.04 Immature Gran # (Auto) 0.11 PT 43.0 H INR 4.4 H APTT PTT Ratio VBG pH VBG pCO2 VBG pO2 VBG HCO3 VBG O2 Saturation VBG Base Excess POC Sodium Sodium POC Potassium Potassium POC Chloride Chloride Carbon Dioxide POC Total CO2 Anion Gap POC Anion Gap POC BUN BUN Creatinine POC Creatinine Est Cr Clr Drug Dosing Est GFR ( Amer) Est GFR (Non-Af Amer) BUN/Creatinine Ratio Glucose POC Glucose POC Glucose (other) Lactate Calcium POC Ioniz Calcium Kimberly Magnesium Total Bilirubin Direct Bilirubin AST ALT Alkaline Phosphatase Ammonia Total Creatine Kinase Troponin I High Sens Total Protein Albumin Lipase Procalcitonin TSH Random Cortisol Urine Color Urine Appearance Urine pH Ur Specific [place] Urine Protein Urine Glucose (UA) Urine Ketones Urine Blood Urine Nitrite Urine Bilirubin Urine Urobilinogen Ur Leukocyte Esterase Urine WBC (Auto) Urine RBC (Auto) U Hyaline Cast (Auto) U Epithel Cells (Auto) Urine Bacteria (Auto) Urine Yeast Nasal Screen MRSA (PCR) Negative Urine Opiates Screen U Codeine Confrm GC/MS Ur Morphine (GC/MS) Ur Hydrocodone (GC/MS) Ur Norhydrocodone Ur Noroxycodone Urine Oxycodone (GC/MS) U Oxymorphone GC/MS Ur Methadone, Qual Ur Hydromorphone (GC/MS) Urine Barbiturates Ur Phencyclidine (PCP) U Amphetamin/Meth Scrn MDMA (Ecstasy) Screen U Benzodiazepines Scrn Ur Cocaine Metabolite U Marijuana (THC) Screen Drug Screen Comment Ethyl Alcohol mg/dL SARS-CoV-2 (PCR) Influenza Type A (PCR) Influenza Type B (PCR) RSV (RT-PCR) Blood Type Antibody Screen 01/10/23 01/10/23 01/10/23 07:06 07:13 08:52 WBC RBC Hgb POC Hgb Hct POC Hct MCV MCH MCHC RDW Std Deviation RDW Coeff of Cheri Plt Count MPV Immature Gran % (Auto) Neut % (Auto) Lymph % (Auto) Knott % (Auto) Eos % (Auto) Baso % (Auto) Neut # (Auto) Lymph # (Auto) Knott # (Auto) Eos # (Auto) Baso # (Auto) Immature Gran # (Auto) PT INR APTT PTT Ratio VBG pH VBG pCO2 VBG pO2 VBG HCO3 VBG O2 Saturation VBG Base Excess POC Sodium Sodium 138 POC Potassium Potassium 4.2 POC Chloride Chloride 114 H Carbon Dioxide 17 L POC Total CO2 Anion Gap 7 POC Anion Gap POC BUN BUN 61 H Creatinine 3.55 H D POC Creatinine Est Cr Clr Drug Dosing 14.7 Est GFR ( Amer) 14.3 Est GFR (Non-Af Amer) 12.3 BUN/Creatinine Ratio 17.2 Glucose 114 H POC Glucose 120 H POC Glucose (other) Lactate Calcium 7.2 L POC Ioniz Calcium Kimberly Magnesium 2.3 Total Bilirubin Direct Bilirubin AST ALT Alkaline Phosphatase Ammonia Total Creatine Kinase 1544 H Troponin I High Sens Total Protein Albumin Lipase Procalcitonin TSH Random Cortisol Pending Urine Color Urine Appearance Urine pH Ur Specific [place] Urine Protein Urine Glucose (UA) Urine Ketones Urine Blood Urine Nitrite Urine Bilirubin Urine Urobilinogen Ur Leukocyte Esterase Urine WBC (Auto) Urine RBC (Auto) U Hyaline Cast (Auto) U Epithel Cells (Auto) Urine Bacteria (Auto) Urine Yeast Nasal Screen MRSA (PCR) Urine Opiates Screen U Codeine Confrm GC/MS Ur Morphine (GC/MS) Ur Hydrocodone (GC/MS) Ur Norhydrocodone Ur Noroxycodone Urine Oxycodone (GC/MS) U Oxymorphone GC/MS Ur Methadone, Qual Ur Hydromorphone (GC/MS) Urine Barbiturates Ur Phencyclidine (PCP) U Amphetamin/Meth Scrn MDMA (Ecstasy) Screen U Benzodiazepines Scrn Ur Cocaine Metabolite U Marijuana (THC) Screen Drug Screen Comment Ethyl Alcohol mg/dL SARS-CoV-2 (PCR) Influenza Type A (PCR) Influenza Type B (PCR) RSV (RT-PCR) Blood Type Antibody Screen 01/10/23 01/10/23 01/10/23 08:52 08:52 08:52 WBC RBC Hgb POC Hgb Hct POC Hct MCV MCH MCHC RDW Std Deviation RDW Coeff of Cheri Plt Count MPV Immature Gran % (Auto) Neut % (Auto) Lymph % (Auto) Knott % (Auto) Eos % (Auto) Baso % (Auto) Neut # (Auto) Lymph # (Auto) Knott # (Auto) Eos # (Auto) Baso # (Auto) Immature Gran # (Auto) PT INR APTT PTT Ratio VBG pH 7.18 L VBG pCO2 46 VBG pO2 42 VBG HCO3 17 VBG O2 Saturation 71.4 VBG Base Excess -11.0 POC Sodium Sodium POC Potassium Potassium POC Chloride Chloride Carbon Dioxide POC Total CO2 Anion Gap POC Anion Gap POC BUN BUN Creatinine POC Creatinine Est Cr Clr Drug Dosing Est GFR ( Amer) Est GFR (Non-Af Amer) BUN/Creatinine Ratio Glucose POC Glucose POC Glucose (other) Lactate Calcium POC Ioniz Calcium Kimberly Magnesium Total Bilirubin Direct Bilirubin AST ALT Alkaline Phosphatase Ammonia 32.0 Total Creatine Kinase Troponin I High Sens Total Protein Albumin Lipase Procalcitonin TSH 0.566 Random Cortisol Urine Color Urine Appearance Urine pH Ur Specific [place] Urine Protein Urine Glucose (UA) Urine Ketones Urine Blood Urine Nitrite Urine Bilirubin Urine Urobilinogen Ur Leukocyte Esterase Urine WBC (Auto) Urine RBC (Auto) U Hyaline Cast (Auto) U Epithel Cells (Auto) Urine Bacteria (Auto) Urine Yeast Nasal Screen MRSA (PCR) Urine Opiates Screen U Codeine Confrm GC/MS Ur Morphine (GC/MS) Ur Hydrocodone (GC/MS) Ur Norhydrocodone Ur Noroxycodone Urine Oxycodone (GC/MS) U Oxymorphone GC/MS Ur Methadone, Qual Ur Hydromorphone (GC/MS) Urine Barbiturates Ur Phencyclidine (PCP) U Amphetamin/Meth Scrn MDMA (Ecstasy) Screen U Benzodiazepines Scrn Ur Cocaine Metabolite U Marijuana (THC) Screen Drug Screen Comment Ethyl Alcohol mg/dL SARS-CoV-2 (PCR) Influenza Type A (PCR) Influenza Type B (PCR) RSV (RT-PCR) Blood Type Antibody Screen PG Care Time/CCT Total # of Minutes Spent Total Time Spent with Patient: Total time spent is greater than 50% in coordination of care (as documented) at patient's floor/unit and/or counseling patient: Prolonged Care Time Prolonged Care Time: Yes Total Prolonged Care Time: 80 Coding Level of Care Code 07317 SUB INP/OBS CARE 3/50MIN (25 - SIGNIFICANT, SEPARATELY IDENTIFIABLE ) Diagnoses Acute metabolic encephalopathy G93.41 Acute kidney injury N17.9 Muscle weakness M62.81 Metabolic acidosis E87.20 Abnormal chest xray R93.89 Left ventricular apical thrombus I51.3 Cancer related pain G89.3 Hypertension I10 Subarachnoid hemorrhage I60.9 Embolic stroke I63.9 Cardiomyopathy I42.9 Depression with anxiety F41.8 Hyperlipidemia E78.5 History of breast cancer Z85.3 Macrocytic anemia D53.9 Muscle, jerky movements (uncontrolled) G25.5 Rhabdomyolysis M62.82 Rhabdomyolysis type: non-traumatic Hypomagnesemia E83.42 Type II diabetes mellitus E11.9 DVT prophylaxis Z29.9 Additional Codes Prolonged Care Time - Prolonged Care Time: Yes ([id number]) (17) Rhabdomyolysis Rhabdomyolysis type: non-traumatic Qualified Code(s): M62.82 - Rhabdomyolysis
[2023-01-10] MEDS: LINEZOLID 600 MG/300 ML BAG IV SCH ×2 (11:45→21:36)
--- NOTE | 2023-01-10 13:26 | Ultrasound Report ---
RENAL ULTRASOUND CLINICAL HISTORY: Acute renal failure. COMPARISON STUDY: CT of the abdomen and pelvis August 12, 2022 and renal ultrasound February 22, 2022 . TECHNIQUE: Sonography of the kidneys and the urinary bladder was performed. FINDINGS: Bladder is collapsed, containing a Lizarraga balloon. The right kidney measures 10.9 cm in maxi mal dimension and the left measures 10.1 cm. There is no hydronephrosis. No renal calculus or solid m ass is identified. There is a 2.3 cm right upper pole renal cyst. No urinary calculi are identified. IMPRESSION: No hydronephrosis. ACT 112: Negative or not required by law. Electronically signed by: Hakeem Rico M.D. 01/10/2023 1:25 PM
[2023-01-10 17:23] LABS: Calcium 7.5 mg/dl (8.5-10.1); Potassium 4.2 mmol/L (3.5-5.1)
[2023-01-10 17:28] LABS: BUN Creatinine Ratio 17.8 (10-20); Creatinine Clr Calc Pharmacy 17.5 ml/min; Est GFR (African American) 17.7 ml/min; Est GFR (Non-African American) 15.2 ml/min
--- NOTE | 2023-01-10 17:32 | XCELERA ---
[id number]
--- NOTE | 2023-01-10 22:16 | Electrocardiogram Report ---
Test Reason : Blood Pressure : / mmHG Vent. Rate : 068 BPM Atrial Rate : 068 BPM P-R Int : 172 ms QRS Dur : 108 ms QT Int : 448 ms P-R-T Axes : 056 -54 073 degrees QTc Int : 476 ms Normal sinus rhythm Left axis deviation Moderate voltage criteria for LVH, may be normal variant Inferior infarct (cited on or before 02-DEC-2022) Poor R-wave progression: anterior LA vs. lead placement vs. LVH Abnormal ECG When compared with ECG of 05-DEC-2022 11:51, Sinus rhythm has replaced Atrial fibrillation Vent. rate has decreased BY 59 BPM Confirmed by Valentin Lowe ([id number]) on 01/10/2023 10:16:26 PM Referred By: REFERRED SELF Confirmed By:Fredo Lowe
--- NOTE | 2023-01-10 22:41 | Electrocardiogram Report ---
Test Reason : Blood Pressure : / mmHG Vent. Rate : 074 BPM Atrial Rate : 074 BPM P-R Int : 186 ms QRS Dur : 120 ms QT Int : 434 ms P-R-T Axes : 059 -59 075 degrees QTc Int : 481 ms Normal sinus rhythm Left axis deviation Left ventricular hypertrophy with QRS widening Inferior infarct (cited on or before 02-DEC-2022) Abnormal ECG When compared with ECG of 09-JAN-2023 19:24, (unconfirmed) No significant change was found Confirmed by Valentin Lowe ([id number]) on 01/10/2023 10:41:09 PM Referred By: REFERRED SELF Confirmed By:Fredo Lowe
[2023-01-11 01:05] LABS: INR 4.6 (0.9-1.1); Prothrombin Time 45.4 Seconds (9.0-12.0)
[2023-01-11] MEDS: SODIUM BICARBONATE 8.4% 150 MEQ in DEXTROSE 5% 1,000 ML IV SCH ×2 (03:27→18:37)
[2023-01-11 07:07] LABS: Basophils # (auto) 0.07 K/uL (0-0.2); Basophils % (auto) 0.9 %; Eosinophils % (auto) 2.5 %; Hematocrit (blood only) 21.3 % (37.0-47.0); Hemoglobin 7.1 g/dl (12.0-16.0); Immature Granulocytes # (auto) 0.06 K/uL (0.01-0.20); Immature Granulocytes % (auto) 0.7 %; Lymphocytes # (auto) 0.98 K/uL (1.2-3.4); Lymphocytes % (auto) 12.1 %; Mean Corpuscular Hemoglobin 33.2 pg (25.0-34.0); Mean Corpuscular Hgb Conc 33.3 g/dL (32.0-36.0); Mean Corpuscular Volume 99.5 fL (80.0-100.0); Mean Platelet Volume 10.3 fL (9.4-12.4); Monocytes # (auto) 0.75 K/uL (0.11-0.59); Monocytes % (auto) 9.2 %; Neutrophils # (auto) 6.07 K/uL (1.40-6.50); Neutrophils % (auto) 74.6 %; Platelet Count 184 K/uL (130-400); RDW Coefficient of Variation 15.6 % (11.5-14.5); RDW Standard Deviation 57.5 fL (36.4-46.3); Red Blood Count 2.14 M/uL (4.20-5.40); White Blood Count 8.13 K/ul (4.8-10.8)
[2023-01-11 07:26] LABS: BUN Creatinine Ratio 18.2 (10-20); Calcium 7.1 mg/dl (8.5-10.1); Creatinine Clr Calc Pharmacy 25.9 ml/min; Est GFR (African American) 28.1 ml/min; Est GFR (Non-African American) 24.2 ml/min; Magnesium 1.6 mg/dl (1.7-2.4); Potassium 3.7 mmol/L (3.5-5.1)
[2023-01-11 07:29] LABS: Basophilic Stippling 1+; Polychromasia 1+
[2023-01-11 07:36] LABS: Troponin I High Sensitivity 50.2 pg/ml (0-14)
[2023-01-11] MEDS ORDERED: MAGNESIUM SULFATE / D5W 1 GM/100 ML BAG IV ONE ×2 (07:47→14:41)
[2023-01-11 07:59] LABS: INR 3.5 (0.9-1.1)
[2023-01-11] MEDS: GABAPENTIN 300 MG CAP PO SCH (08:20)
[2023-01-11] MEDS: PANTOprazole 40 MG TAB PO SCH (08:20)
[2023-01-11] MEDS: CALCIUM 600MG + VIT D 400 IU TAB PO SCH (08:20)
[2023-01-11] MEDS: CEFEPIME 1,000 MG in SYRINGE 0 ML IV SCH (08:20)
[2023-01-11] MEDS: ANASTROZOLE 1 MG TAB PO SCH (08:20)
[2023-01-11] MEDS: LINEZOLID 600 MG/300 ML BAG IV SCH (11:07)
[2023-01-11] MEDS: INSULIN ASPART PER UNIT SC SCH ×4 (11:10→21:00)
--- NOTE | 2023-01-11 11:38 | Electrocardiogram Report ---
Test Reason : Blood Pressure : / mmHG Vent. Rate : 076 BPM Atrial Rate : 076 BPM P-R Int : 170 ms QRS Dur : 126 ms QT Int : 448 ms P-R-T Axes : 052 -51 074 degrees QTc Int : 504 ms Normal sinus rhythm Left anterior fascicular block Non-specific intra-ventricular conduction block Cannot rule out Inferior infarct (cited on or before 02-DEC-2022) Abnormal ECG When compared with ECG of 10-JAN-2023 05:09, No significant change was found Confirmed by Marvin Cloud ([id number]) on 01/11/2023 11:38:08 AM Referred By: REFERRED SELF Confirmed By:Marvin Cloud
[2023-01-11] MEDS ORDERED: METOPROLOL TARTRATE 25 MG TAB PO STA (12:20)
[2023-01-11] MEDS ORDERED: METOPROLOL SUCC 50MG EXT REL TAB PO STA (12:25)
[2023-01-11] MEDS ORDERED: STAT IV Infusion **Titration per Protocol STA ×2 (12:59→19:50)
[2023-01-11] MEDS ORDERED: dilTIAZem HCL 125 MG in DEXTROSE 5% 100 ML IV SCH (13:00)
--- NOTE | 2023-01-11 13:00 | Hospitalist Progress Note ---
Date of Service January 11, 2023 Assessment & Plan (1) Atrial fibrillation with RVR: Plan: No improvement in rate control with her usual metoprolol succinate 50mg. No improvement with cardizem infusion (titrated to 7.5mg/hr - further titration limited by low-normal SBP of ~100). Records from her recent stay at [facility] [place] indicate she ultimately needed amiodarone infusion for her rapid a.fib she experienced there. Echo from this admission with EF 50-55%. I spoke with on-call cardiology, Dr Cloud. We reviewed options for treatment. Although QTc is prolonged (525msec) amiodarone is not a bad option for her seeing that AV yadira agents have been ineffective. Digoxin for rate control not a good option due to ARNALDO, recent need for hemodialysis, etc. Thus, ordered amiodarone drip with bolus. Cardizem infusion stopped. Can continue metoprolol for now. Consider formal cardiology consultation to determine if PO amiodarone is needed moving forward. (2) Acute metabolic encephalopathy: Plan: likely 2nd to acute renal failure and acidosis from such. mild hypercapnea noted on blood gas as well which would have contributed. after speaking with her son it appears she took at least 3 tabs of 8mg dilaudid orally at home thus toxic encephalopathy also possible. gabapentin may have caused confusion at home given the large dose she was taking. can't rule out misuse of clonazepam. no infectious process found -- urine cx neg, no distinct pneumonia on cxr, and blood cx's neg. will stop empiric IV cefepime & zyvox. altered MS MUCH improved today. (3) Acute kidney injury: Plan: ARNALDO on CKD. Per records when she left [facility] her creatinine was low 3's. While at [facility] records suggest creatinine had improved to about 2. Presented with Cr of 5.46. Differential - rhabdomyolysis vs hypovolemia vs ATN vs obstructive vs other. Renal u/s - NO obstruction. ARNALDO improving - Cr now 2 today. Stop bicarbonate drip. BMP am. Likely can d/c martinez soon. (4) Muscle weakness: Plan: Likely multifactorial - hypomagnesemia, hypocalcemia, ARNALDO, critical illness myopathy, active rhabdomyolysis, prior strokes, deconditioning, etc. CPK improving. TSH/cortisol wnl. No infectious process found. Overall improving. Cont Pt/Ot. (5) Metabolic acidosis: Plan: 2nd to acute renal failure. resolved. stop bicarbonate drip. (6) Abnormal chest xray: Plan: LLL opacity on admission cxr. Records from here in 11/2022 show she had RLL MSSA pneumonia. Records from [place] state her pneumonia was b/l. clinically does not appear to have pneumonia. stop empiric IV abx. (7) Left ventricular apical thrombus: Plan: diagnosed 11/2022 here at [facility] records indicate at [place] that thrombus improved in size while at their medical center repeat echo here - thrombus resolved INR is supratherapeutic - cont to hold coumadin, repeat INR am (8) Cancer related pain: Plan: Known metastatic breast ca with mets to bone Decrease her gabapentin to daily dosing from TID dosing due to ARNALDO can likely up-titrate her dose once renal function improves further Of note - I reviewed her [facility] records and based on what I can see her dilaudid was stopped/weaned off while rehabbing there However, her son confirms she took 3 tabs of Dilaudid at home (this was left over from old prescription - PDMP shows last refill was 10/2022) This had been previously prescribed by palliative care Holding dilaudid at this time she has not c/o bone pain to me last 2 days (9) Hypertension: Plan: cont BB hold ARB (10) Subarachnoid hemorrhage: Plan: discovered 12/05/22 at [facility] this never needed intervention at [place] by neurosurgery appears resolved on CT head 01/09/23 (11) Embolic stroke: Plan: 12/05/22 at [facility] - MRI brain at that time showed strokes in the right occipital lobe, right thalamus, right temporal lobe, right cerebellar hemisphere, high right frontal parietal cortex, high left parietal cortex, and a punctate stroke in the left occipital cortex. Presumed embolic from her LV thrombus. Her strokes were associated with SAH over the right brain. Again she was ultimately transferred to [facility]. Now on coumadin for her LV thrombus and h/o strokes along with PAF. (12) Cardiomyopathy: Plan: Early November 2022 discovered to have severe cardiomyopathy with EF 25-30% and large LV thrombus. During her stay at [facility] [place] [facility] her LV function improved. Records suggest it climbed back to 60% EF. Echo here this admission - EF 50-55%, thrombus no longer seen. Cont BB Hold ARB due to hypotension and ARNALDO. At this time I see no evidence of volume overload. (13) Depression with anxiety: Plan: Was on clonazepam 1mg TID at home along with Effexor 225mg daily. Need to resume clonazepam today to avoid benzo withdrawal. Effexor is chronic dating back to at least early 2021. PDMP shows she has been on clonazepam at least since early 2020. resume effexor 150mg tomorrow; hold the 75mg portion. (14) Hyperlipidemia: Plan: HOLD statin due to rhabdomyolysis. (15) History of breast cancer: Plan: b/l, with b/l mastectomies. recurrence with known bone mets. palliative care follows as outpatient for pain management. hold dilaudid at this time. cont anastrozole 1mg daily ibrance was placed on hold upon d/c from [place], and records from [facility] show it was not continued there either. (16) Macrocytic anemia: Plan: TSH wnl Previous B12 level very robust Folate level today wnl did receive PRBCs 1 unit while at [place] Hb was about the 8 while at [place] Hb 7.1 today; defer on PRBCs, recheck CBC with Fe studies in am (17) Muscle, jerky movements (uncontrolled): Plan: left arm myoclonus ? focal seizure ? given her known extensive right sided CVAs she is at risk of seizure. obtain EEG. since admission, however, the movements HAVE improved (18) Rhabdomyolysis: Plan: 2nd to fall at home? son did state she was found on the floor at home once; uncertain how much time she was on floor and the details of whether it was a fall, etc. 2nd to statin? improved CPK can d/c fluids hold statin another day (19) Hypomagnesemia: Plan: 1.6 today - replace IV mag repeat level am (20) Type II diabetes mellitus: Plan: Sliding scale coverage w/ novolog only last a1c was <6% in 08/2022 doubt she will need much coverage (21) DVT prophylaxis: Plan: coumadin daily INR Plan spoke with pt's son by phone extensive update given to him he expressed concerns about her living alone, and that his family cannot continue to provide the care she needs as he has young children, he works FT, etc PT, OT, speech evals ordered Admission and Anticipated Discharge Date Admission Date: January 09, 2023 Subjective NSR overnight then, during the afternoon, she converted to rapid a.fib despite the visit she denied any chest pain, palpitations, fatigue, lightheadedness she asks about going home denies any other new complaints eating ok Review of Systems Review of Systems: gen - no fevers or chills psych - she is more oriented today - knew she was at [facility]; Friday CV - no cp, palpitations, orthopnea pulm - no cough GI - no abd pain or N/V Physical Exam Physical Exam: gen - awake, alert, oriented x 3 today; looks better mouth - MMM neck - no JVD heart - RRR, s1 s2 lungs - CTA b/l, no wheezing abd - soft NT ND BS+ ext - <1+ edema b/l, pulses 2+ b/l psych - oriented x 3 neuro - left arm shaking resolved Results & Data Results & Data ([facility]) Vital Signs (Past 12 Hours) Vital Signs Temp Pulse Pulse Resp BP Pulse Ox O2 Del Method 01/11/23 11:43 37.3 C 126 H 20 123/80 92 Room Air 01/11/23 08:00 64 01/11/23 08:25 94 Room Air 01/11/23 07:20 36.8 C 77 18 120/70 96 Nasal Cannula 01/11/23 03:12 36.6 C 78 18 104/62 98 Nasal Cannula O2 Flow Rate 01/11/23 11:43 01/11/23 08:00 01/11/23 08:25 01/11/23 07:20 2 01/11/23 03:12 2 Laboratory Results Laboratory Results - last 24 hr 01/10/23 01/10/23 01/10/23 16:18 16:34 16:34 WBC RBC Hgb Hct MCV MCH MCHC RDW Std Deviation RDW Coeff of Cheri Plt Count MPV Immature Gran % (Auto) Neut % (Auto) Lymph % (Auto) Grand % (Auto) Eos % (Auto) Baso % (Auto) Neut # (Auto) Lymph # (Auto) Grand # (Auto) Eos # (Auto) Baso # (Auto) Immature Gran # (Auto) Polychromasia Basophilic Stippling PT INR VBG pH 7.23 L Sodium 138 Potassium 4.2 Chloride 113 H Carbon Dioxide 19 L Anion Gap 6 BUN 53 H Creatinine 2.98 H D Est Cr Clr Drug Dosing 17.5 Est GFR ( Amer) 17.7 Est GFR (Non-Af Amer) 15.2 BUN/Creatinine Ratio 17.8 Glucose 100 H POC Glucose 96 Calcium 7.5 L Magnesium Total Creatine Kinase Troponin I High Sens Folate 01/10/23 01/11/23 01/11/23 20:02 00:30 06:34 WBC 8.13 RBC 2.14 L Hgb 7.1 L Hct 21.3 L MCV 99.5 MCH 33.2 MCHC 33.3 RDW Std Deviation 57.5 H RDW Coeff of Cheri 15.6 H Plt Count 184 MPV 10.3 Immature Gran % (Auto) 0.7 Neut % (Auto) 74.6 Lymph % (Auto) 12.1 Grand % (Auto) 9.2 Eos % (Auto) 2.5 Baso % (Auto) 0.9 Neut # (Auto) 6.07 Lymph # (Auto) 0.98 L Grand # (Auto) 0.75 H Eos # (Auto) 0.20 Baso # (Auto) 0.07 Immature Gran # (Auto) 0.06 Polychromasia 1+ Basophilic Stippling 1+ PT 45.4 H INR 4.6 H VBG pH Sodium Potassium Chloride Carbon Dioxide Anion Gap BUN Creatinine Est Cr Clr Drug Dosing Est GFR ( Amer) Est GFR (Non-Af Amer) BUN/Creatinine Ratio Glucose POC Glucose 121 H Calcium Magnesium Total Creatine Kinase Troponin I High Sens Folate 01/11/23 01/11/23 01/11/23 06:34 06:34 06:34 WBC RBC Hgb Hct MCV MCH MCHC RDW Std Deviation RDW Coeff of Cheri Plt Count MPV Immature Gran % (Auto) Neut % (Auto) Lymph % (Auto) Grand % (Auto) Eos % (Auto) Baso % (Auto) Neut # (Auto) Lymph # (Auto) Grand # (Auto) Eos # (Auto) Baso # (Auto) Immature Gran # (Auto) Polychromasia Basophilic Stippling PT 35.0 H INR 3.5 H VBG pH Sodium 140 Potassium 3.7 Chloride 109 H Carbon Dioxide 26 Anion Gap 5 BUN 37 H Creatinine 2.03 H D Est Cr Clr Drug Dosing 25.9 Est GFR ( Amer) 28.1 Est GFR (Non-Af Amer) 24.2 BUN/Creatinine Ratio 18.2 Glucose 112 H POC Glucose Calcium 7.1 L Magnesium 1.6 L Total Creatine Kinase 770 H Troponin I High Sens 50.2 H* D Folate > 22.30 01/11/23 01/11/23 07:03 11:02 WBC RBC Hgb Hct MCV MCH MCHC RDW Std Deviation RDW Coeff of Cheri Plt Count MPV Immature Gran % (Auto) Neut % (Auto) Lymph % (Auto) Grand % (Auto) Eos % (Auto) Baso % (Auto) Neut # (Auto) Lymph # (Auto) Grand # (Auto) Eos # (Auto) Baso # (Auto) Immature Gran # (Auto) Polychromasia Basophilic Stippling PT INR VBG pH Sodium Potassium Chloride Carbon Dioxide Anion Gap BUN Creatinine Est Cr Clr Drug Dosing Est GFR ( Amer) Est GFR (Non-Af Amer) BUN/Creatinine Ratio Glucose POC Glucose 116 H 109 H Calcium Magnesium Total Creatine Kinase Troponin I High Sens Folate PG Care Time/CCT Total # of Minutes Spent Total Time Spent with Patient: Total time spent is greater than 50% in coordination of care (as documented) at patient's floor/unit and/or counseling patient: Coding Level of Care Code 01914 SUB INP/OBS CARE 3/50MIN Diagnoses Atrial fibrillation with RVR I48.91 Acute metabolic encephalopathy G93.41 Acute kidney injury N17.9 Muscle weakness M62.81 Metabolic acidosis E87.20 Abnormal chest xray R93.89 Left ventricular apical thrombus I51.3 Cancer related pain G89.3 Hypertension I10 Subarachnoid hemorrhage I60.9 Embolic stroke I63.9 Cardiomyopathy I42.9 Depression with anxiety F41.8 Hyperlipidemia E78.5 History of breast cancer Z85.3 Macrocytic anemia D53.9 Muscle, jerky movements (uncontrolled) G25.5 Rhabdomyolysis M62.82 Rhabdomyolysis type: non-traumatic Hypomagnesemia E83.42 Type II diabetes mellitus E11.9 DVT prophylaxis Z29.9 (18) Rhabdomyolysis Rhabdomyolysis type: non-traumatic Qualified Code(s): M62.82 - Rhabdomyolysis
[2023-01-11] MEDS ORDERED: POTASSIUM CHLORIDE CRTAB 20 MEQ TABCR PO STA (14:41)
[2023-01-11] MEDS ORDERED: clonazePAM 1 MG TAB PO STA (18:30)
[2023-01-11] MEDS ORDERED: AMIODARONE IV BOLUS & DRIP IV STA (19:50)
[2023-01-11] MEDS ORDERED: 0.2 MICRON FILTER SET 1 EACH IV STA (19:50)
[2023-01-11] MEDS ORDERED: AMIODARONE / D5W 150 MG/100 ML BAG IV STA (19:50)
[2023-01-11] MEDS ORDERED: AMIODARONE / D5W 360 MG/200 ML BAG IV ONE (20:00)
[2023-01-12] MEDS: AMIODARONE / D5W 360 MG/200 ML BAG IV SCH ×2 (02:29→17:11)
[2023-01-12 07:10] LABS: Basophils # (auto) 0.07 K/uL (0-0.2); Basophils % (auto) 0.9 %; Eosinophils % (auto) 3.7 %; Hematocrit (blood only) 22.7 % (37.0-47.0); Hemoglobin 7.6 g/dl (12.0-16.0); Immature Granulocytes # (auto) 0.09 K/uL (0.01-0.20); Immature Granulocytes % (auto) 1.1 %; Lymphocytes # (auto) 1.42 K/uL (1.2-3.4); Lymphocytes % (auto) 17.6 %; Mean Corpuscular Hemoglobin 33.9 pg (25.0-34.0); Mean Corpuscular Hgb Conc 33.5 g/dL (32.0-36.0); Mean Corpuscular Volume 101.3 fL (80.0-100.0); Mean Platelet Volume 10.1 fL (9.4-12.4); Monocytes # (auto) 0.88 K/uL (0.11-0.59); Monocytes % (auto) 10.9 %; Neutrophils # (auto) 5.31 K/uL (1.40-6.50); Neutrophils % (auto) 65.8 %; Platelet Count 200 K/uL (130-400); RDW Coefficient of Variation 15.7 % (11.5-14.5); RDW Standard Deviation 58.7 fL (36.4-46.3); Red Blood Count 2.24 M/uL (4.20-5.40); White Blood Count 8.07 K/ul (4.8-10.8)
[2023-01-12 07:26] LABS: BUN Creatinine Ratio 18.2 (10-20); Calcium 7.6 mg/dl (8.5-10.1); Creatinine Clr Calc Pharmacy 35.4 ml/min; Est GFR (African American) 41.2 ml/min; Est GFR (Non-African American) 35.5 ml/min; Magnesium 1.8 mg/dl (1.7-2.4); Potassium 3.8 mmol/L (3.5-5.1)
[2023-01-12 07:39] LABS: Polychromasia 1+
[2023-01-12 07:47] LABS: INR 1.9 (0.9-1.1); Prothrombin Time 19.9 Seconds (9.0-12.0)
[2023-01-12 07:58] LABS: Codeine Urine NEGATIVE ng/mL (<50); Hydrocodone Urine NEGATIVE ng/mL (<50); Hydromor Urine 6330 ng/mL (<50); Morphine Urine NEGATIVE ng/mL (<50); Norhydrocodone Conf Ur NEGATIVE ng/mL (<50); Noroxycodone Urine NEGATIVE ng/mL (<50); Oxycodone Urine NEGATIVE ng/mL (<50); Oxymorph Urine NEGATIVE ng/mL (<50)
[2023-01-12] MEDS: PANTOprazole 40 MG TAB PO SCH (08:02)
[2023-01-12] MEDS: CALCIUM 600MG + VIT D 400 IU TAB PO SCH (08:02)
[2023-01-12] MEDS: ANASTROZOLE 1 MG TAB PO SCH (08:02)
[2023-01-12] MEDS: GABAPENTIN 300 MG CAP PO SCH ×2 (08:02→20:13)
[2023-01-12] MEDS: clonazePAM 1 MG TAB PO SCH ×3 (08:07→20:12)
[2023-01-12] MEDS: INSULIN ASPART PER UNIT SC SCH ×4 (08:30→20:06)
[2023-01-12] MEDS ORDERED: POTASSIUM CHLORIDE CRTAB 20 MEQ TABCR PO STA (08:34)
[2023-01-12] MEDS ORDERED: MAGNESIUM SULFATE / D5W 1 GM/100 ML BAG IV ONE (08:34)
[2023-01-12] MEDS ORDERED: WARFARIN SOD 5 MG TAB PO ONE (09:00)
[2023-01-12] MEDS: ROSUVASTATIN CALCIUM 5 MG TAB PO SCH (09:25)
[2023-01-12] MEDS: VENLAFAXINE HCL XR 150 MG CAPXR PO SCH (09:25)
[2023-01-12] MEDS: METOPROLOL SUCC 25MG EXT REL TAB PO SCH (09:31)
[2023-01-12 10:24] LABS: Ferritin 219.7 ng/ml (8-388)
--- NOTE | 2023-01-12 11:09 | Electrocardiogram Report ---
Test Reason : Blood Pressure : / mmHG Vent. Rate : 141 BPM Atrial Rate : 187 BPM P-R Int : 000 ms QRS Dur : 098 ms QT Int : 344 ms P-R-T Axes : 000 -54 101 degrees QTc Int : 526 ms Atrial fibrillation with rapid ventricular response Left anterior fascicular block Voltage criteria for left ventricular hypertrophy with secondary ST/T changes Anterior infarct , age undetermined vs PRWP from LAFB Abnormal ECG When compared with ECG of 11-JAN-2023 06:45, Atrial fibrillation has replaced Sinus rhythm Vent. rate has increased BY 65 BPM QRS duration has decreased Confirmed by Marvin Cloud ([id number]) on 01/12/2023 11:08:52 AM Referred By: REFERRED SELF Confirmed By:Marvin Cloud
--- NOTE | 2023-01-12 11:29 | Electrocardiogram Report ---
Test Reason : Blood Pressure : / mmHG Vent. Rate : 122 BPM Atrial Rate : 113 BPM P-R Int : 000 ms QRS Dur : 102 ms QT Int : 322 ms P-R-T Axes : 000 -63 104 degrees QTc Int : 458 ms Atrial fibrillation with rapid ventricular response Left anterior fascicular block Poor R wave progression, consider anterior IN vs. lead placement vs. LVH Abnormal ECG When compared with ECG of 11-JAN-2023 12:14, (unconfirmed) No significant change was found Confirmed by Marvin Cloud ([id number]) on 01/12/2023 11:29:27 AM Referred By: REFERRED SELF Confirmed By:Marvin Cloud
--- NOTE | 2023-01-12 12:52 | Cardiology Consultation ---
Date of Consultation January 12, 2023 History of Present Illness Reason for Consultation: Atrial fibrillation with a rapid ventricular response Attending Physician: Giovanni Gonzales History of Present Illness 72 YOF with recently complex medical history over the past few months. Patient with previous history of: SAH, CVA, Afib, New onset LV dysfunction, metastatic bone cancer pain, pneumonia, HTN, CKD, HLD, Ventricular thrombus (on warfarin), DM. External medical records reviewed. Patient was admitted from December 01 to December 06, 2022 at this facility. She was admitted for sepsis and pneumonia. Her blood cultures grew out MRSA 4-4. She has sputum culture that grew out MSSA. Patient was admitted to the ICU and intubated she was on pressors. On December 06 the patient suffered a stroke with MRI showing numerous bilateral foci of restricted diffusion suggesting embolic phenomenon and a possible subarachnoid hemorrhage. Patient was subsequently transferred to [facility] External medical records from [facility] reviewed. The patient had a TTE done on December 16, 2022 which showed ejection fraction 60 to 65% with a thrombus in the left ventricular apex measuring 1.8 x 1.3 cm. While at [facility] the patient had fluctuant mental status which they thought was secondary to her metabolic/uremic encephalopathy and delirium. While at [facility] the patient was noted to be in renal failure and had dialysis done from December 09 to December 11. They attributed her renal failure to hypotension, prerenal factors and possible vancomycin toxicity. Patient demonstrated improvement in renal function and did not receive any further dialysis. While in the ICU the patient also had a bout of paroxysmal atrial fibrillation. The patient was tr eated for left ventricular thrombus with heparin and then bridged to Coumadin. SIRS on December 03 showed no growth at patient was discharged with clonazepam , gabapentin, hydromorphone, and warfarin from [facility] to [facility]. External medical records from [facility] reviewed. While at [facility] the patient was having frustration with difficulty word finding at times. She was discharged from [facility] 2 days ago on January 07, 2023. I personally reviewed the medical records from [facility] as well as the ER summation discussed above. Of note her EKG when in atrial fibrillation at [facility] showed a QTc as long as 550 ms when she was on amiodarone. She is feeling better this morning she is tearful she has been in the hospital as she describes on and off over the last 6 weeks. She does not really understand why she came in the hospital why she was transferred how she ended up back here. She does not is appear confused today. She denies any lightheadedness or dizziness she denies any chest pain or chest pressure or shortness of breath talking in sentences. She denies any palpitations or fluttering. She has no idea that she is in atrial fibrillation when she has it. There is some question as to whether she received too much Dilaudid the other possibility is that she was also having A-fib that was fast and therefore was under perfusing her body. She has any chest pain or chest pressure. She has no lower extremity edema. She did walk to the bathroom today and find felt comfortable doing this. The rest of a complete her systems otherwise negative Allergies Allergy/AdvReac Type Severity Reaction Status Date / Time fentanyl AdvReac Severe Hallucinati Verified 01/09/23 21:28 on Home Medications Medication Instructions Recorded Confirmed Type cholecalciferol (vitamin D3) 50 50 mcg PO QAM 01/06/22 01/09/23 History mcg (2,000 unit) capsule acetaminophen 325 mg tablet 650 mg PO Q6H PRN pain, mild 02/08/22 01/09/23 History anastrozole 1 mg tablet 1 mg PO QAM 02/08/22 01/09/23 History multivitamin with minerals 1 cap PO QAM 02/08/22 01/09/23 History losartan 100 mg tablet 100 mg PO QAM #90 tabs 05/30/22 01/09/23 Rx omeprazole 20 mg capsule,delayed 20 mg PO QAM #90 caps 07/23/22 01/09/23 Rx release Ibrance 1 dose PO DIRECTED 08/12/22 01/09/23 History calcium carbonate 600 mg-vitamin 1 tab PO QAM 08/12/22 01/09/23 History D3 10 mcg (400 unit) tablet (Calcium 600 + D(3)) hydromorphone 8 mg tablet 4 mg PO Q4 PRN Pain, Severe 08/12/22 01/09/23 History magnesium 250 mg tablet 250 mg PO DAILY 08/12/22 01/09/23 History venlafaxine 150 mg 150 mg PO QAM #90 caps 09/04/22 01/09/23 Rx capsule,extended release 24 hr rosuvastatin 5 mg tablet 5 mg PO DAILY #90 tabs 10/03/22 01/09/23 Rx clonazepam 1 mg tablet 1 mg PO TID #90 tabs 10/22/22 01/09/23 Rx venlafaxine 75 mg capsule,extended 75 mg PO QAM 12/01/22 01/09/23 History release 24 hr cephalexin 500 mg capsule 500 mg PO BID 01/09/23 01/09/23 History gabapentin 300 mg capsule 600 mg PO TID 01/09/23 01/09/23 History metoprolol succinate 50 mg 50 mg PO DAILY 01/09/23 01/09/23 History tablet,extended release 24 hr warfarin 5 mg tablet 5 mg PO QPM 01/09/23 01/09/23 History Patient History Medical History Acute alteration in mental status Bilateral breast cancer [id number]--sx/chemo/radiation Breast cancer metastasized to bone 2021 Cancer related pain Case discussed with Dr. Miller/Renata Kelly Palliative med, who has been managing patient's complex cancer pain with Methadone 5mg TID + prn Dilaudid oral. it is noted that pt has h/o ETOH abuse and ?opioid misuse. Her son reportedly struggles with substance abuse and there have been several early requests for opioids, raising the concern someone else is taking her meds. 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/no clinical reimbursement specialist Osteoarthritis Pain of right lower extremity Palliative care encounter Type II diabetes mellitus Vitamin D deficiency Surgical History H/O tubal ligation History of appendectomy History of section History of colonoscopy History of esophagogastroduodenoscopy (EGD) History of left breast biopsy malignant History of lumpectomy of both breasts x2 History of right breast biopsy malignant History of tooth extraction History of wisdom tooth extraction Hx laparoscopic cholecystectomy (08/13/22) Laparoscopic Cholecystectomy - Alexandro Alvarez DO, FACS Status post correction of deviated nasal septum Family History Grandmother (Maternal) AAA (abdominal aortic aneurysm) Family history of diabetes mellitus Mother No problems noted. 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 Children do You have: 1 Feels Safe at Home: Yes Safety Concerns: Feels Safe At This Time Seatbelt Use: always Sunscreen Use: Yes Assistive Devices: None Results & Data ([facility]) Vital Signs (Past 12 Hours) Vital Signs Temp Pulse Pulse Resp BP Pulse Ox O2 Del Method 01/12/23 11:35 36.8 C 73 20 141/79 H 98 Room Air 01/12/23 08:00 69 01/12/23 08:00 Room Air 01/12/23 07:26 36.9 C 70 18 135/73 98 Room Air 01/12/23 02:55 36.4 C L 70 18 123/68 96 Room Air she is awake alert and oriented x3 HEENT to prescribe systems or carotid bruits Lungs: Clear to auscultation bilaterally no rales rhonchi or wheezing Heart: Regular rate and rhythm no appreciable murmurs rubs or gallops Abdomen soft and tenderness and a positive bowel sounds Extremities: No clubbing cyanosis or edema Psychiatric: Her affect appeared appropriate but she was tearful talking during our conversation IMPRESSIONS: 1 history of significant LV dysfunction LVEF 25% with a left ventricular apical thrombusquestion related to myopathy of sepsis during her first hospitalization in early November with MRSA bacteremia and MSSA in her sputum 2. Multiple small embolic foci on her MRI thought to be from her left ventricular apical thrombus 3. Resolution of her cardiomyopathy documented at [facility] and confirmed again here at [facility] with an EF in the range of 50 to 55% without evidence of an LV apical thrombus 4. Asymptomatic paroxysmal atrial fibrillation which is fast with resolution back to sinus rhythm with the use of amiodarone both at [facility] and here at [facility] 5. History of QT prolongation on her EKG even on amiodarone at [facility] up to 550 ms; here in the low 500 ms range 6. Chronic anticoagulation secondary to her previous LV apical thrombus and now paroxysmal atrial fibrillation 7. 3.9-second pause with conversion from A-fib to sinus rhythm this admission; no further pauses in sinus rhythm I reviewed all of her inpatient records her amiodarone was not discontinued at [facility] due to QT prolongation at least that was documented in the inpatient records. Clearly when she is in atrial fibrillation she has a very rapid rate this could be leading to hypoperfusion and confusion and renal dysfunction. Therefore I think we need to maintain sinus rhythm at this point. Clearly she failed beta-blockers as an outpatient. She will remain on amiodarone 0.5 mg/min until tomorrow morning. In the interim we will start 200 mg oral amiodarone twice daily. We will have to watch her INR given the initiation of amiodarone as it will cause her INR to rise significantly. She did have repeat imaging of her brain here and there was no evidence of either a subarachnoid or subdural bleed. We will have to monitor her QTc and just have to accept some degree of mild QT prolongation in the low 500 ms. If she starts getting out into the mid 500 range we will need to consider other options. The challenges with her history of LV dysfunction and acute kidney injury there are not really great options. All this was discussed with the primary service. [facility] physician group cardiology will return tomorrow to continue her care
[2023-01-12] MEDS: AMIODARONE 200 MG TAB PO SCH ×2 (13:59→18:17)
--- NOTE | 2023-01-12 14:10 | Electrocardiogram Report ---
Test Reason : Blood Pressure : / mmHG Vent. Rate : 070 BPM Atrial Rate : 070 BPM P-R Int : 174 ms QRS Dur : 114 ms QT Int : 474 ms P-R-T Axes : 069 -60 060 degrees QTc Int : 511 ms Normal sinus rhythm Left anterior fascicular block Nonspecific ST abnormality Prolonged QT Abnormal ECG When compared with ECG of 11-JAN-2023 21:08, Sinus rhythm has replaced Atrial fibrillation Vent. rate has decreased BY 52 BPM Confirmed by Marvin Cloud ([id number]) on 01/12/2023 2:10:07 PM Referred By: REFERRED SELF Confirmed By:Marvin Cloud
[2023-01-12] MEDS: MELATONIN 3 MG TAB PO SCH (20:12)
[2023-01-12] MEDS: clonazePAM 0.5 MG TAB PO SCH (20:16)
--- NOTE | 2023-01-12 20:39 | Hospitalist Progress Note ---
Date of Service January 12, 2023 Assessment & Plan (1) Atrial fibrillation with RVR: Plan: Resolved. Converted from rapid a.fib to NSR late last pm s/p amiodarone bolus/infusion. Again had poor rate response to PO metoprolol + cardizem infusion. Further, SBPs were low-normal while on AV yadira agents. Records from her recent stay at [facility] indicate she ultimately needed amiodarone infusion for her rapid a.fib she experienced there. Echo from this admission with EF 50-55%. Formal consult obtained with Dr Cloud from [facility]. Although QTc is mildly prolonged she has poor response to AV yadira agents and options are limited. Dr Cloud recommends continuing the amiodarone drip 1 more day then stop on 01/13/23. He is starting amiodarone 200mg PO BID today as well. Resume coumadin today. Give 5mg po x 1. INR am. Most recent TSH wnl. (2) Acute metabolic encephalopathy: Plan: fully resolved. a/o x 3. likely 2nd to acute renal failure and acidosis from such. mild hypercapnea noted on blood gas as well which would have contributed. after speaking with her son it appears she took at least 3 tabs of 8mg dilaudid orally at home thus toxic encephalopathy also possible. gabapentin may have caused confusion at home given the large dose she was taking. can't rule out misuse of clonazepam. no infectious process found -- urine cx neg, no distinct pneumonia on cxr, and blood cx's neg. abx stopped. (3) Acute kidney injury: Plan: ARNALDO on CKD. Per records when she left [facility] her creatinine was low 3's. While at [facility] records suggest creatinine had improved to about 2. Presented with Cr of 5.46. Differential - rhabdomyolysis vs hypovolemia vs ATN vs obstructive vs other. Renal u/s - NO obstruction. ARNALDO improving - Cr now 1.4 today. BMP am. d/c martinez today. (4) Muscle weakness: Plan: Likely multifactorial - hypomagnesemia, hypocalcemia, ARNALDO, critical illness myopathy, active rhabdomyolysis, prior strokes, deconditioning, etc. IMPROVING. CPK nearly normal. TSH/cortisol wnl. No infectious process found. Cont Pt/Ot. (5) Metabolic acidosis: Plan: 2nd to acute renal failure. resolved. (6) Abnormal chest xray: Plan: LLL opacity on admission cxr. Records from here in 11/2022 show she had RLL MSSA pneumonia. Records from [facility] state her pneumonia was b/l. clinically does not appear to have pneumonia. no pulmonary symptoms. abx stopped. (7) Left ventricular apical thrombus: Plan: diagnosed 11/2022 here at [facility] records indicate at [facility] that thrombus improved in size while at their medical center repeat echo here - thrombus resolved INR 1.9 today - resume coumadin 5mg x 1 INR am (8) Cancer related pain: Plan: Known metastatic breast ca with mets to bone Decrease her gabapentin to daily dosing from TID dosing due to ARNALDO can likely up-titrate her dose once renal function improves further Of note - I reviewed her [facility] records and based on what I can see her dilaudid was stopped/weaned off while rehabbing there However, her son confirms she took 3 tabs of Dilaudid at home (this was left over from old prescription - PDMP shows last refill was 10/2022) This had been previously prescribed by palliative care Holding dilaudid at this time she has not c/o bone pain to me last few days (9) Hypertension: Plan: cont BB hold ARB (10) Subarachnoid hemorrhage: Plan: discovered 12/05/22 at [facility] this never needed intervention at [facility] by neurosurgery appears resolved on CT head 01/09/23 (11) Embolic stroke: Plan: 12/05/22 at [facility] - MRI brain at that time showed strokes in the right occipital lobe, right thalamus, right temporal lobe, right cerebellar hemisphere, high right frontal parietal cortex, high left parietal cortex, and a punctate stroke in the left occipital cortex. Presumed embolic from her LV thrombus. Her strokes were associated with SAH over the right brain. Again she was ultimately transferred to [facility]. Now on coumadin for her LV thrombus and h/o strokes along with PAF. (12) Cardiomyopathy: Plan: Early November 2022 discovered to have severe cardiomyopathy with EF 25-30% and large LV thrombus. During her stay at [facility] her LV function improved. Records suggest it climbed back to 60% EF. Echo here this admission - EF 50-55%, thrombus no longer seen. Cont BB Hold ARB At this time I see no evidence of volume overload. appreciate cardiology consultation (13) Depression with anxiety: Plan: Was on clonazepam 1mg TID at home along with Effexor 225mg daily. Effexor is chronic dating back to at least early 2021. PDMP shows she has been on clonazepam at least since early 2020. resumed effexor 150mg; holding 75mg dose resumed clonazepam 1mg TID; will give additional 0.5mg at HS for sleep (14) Hyperlipidemia: Plan: cont to HOLD statin due to rhabdomyolysis. (15) History of breast cancer: Plan: b/l, with b/l mastectomies. recurrence with known bone mets. palliative care follows as outpatient for pain management. hold dilaudid at this time. cont anastrozole 1mg daily ibrance was placed on hold upon d/c from [facility], and records from [facility] show it was not continued there either. (16) Macrocytic anemia: Plan: TSH wnl Previous B12 level very robust Folate level wnl did receive PRBCs 1 unit while at [facility] Hb was about the 8 while at [facility] Hb 7.6 today; defer on PRBCs, recheck CBC Fe studies noted consider IV venofer (17) Muscle, jerky movements (uncontrolled): Plan: left arm myoclonus ? focal seizure ? given her known extensive right sided CVAs she is at risk of seizure. obtain EEG. still pending since admission, however, the movements HAVE improved/resolved (18) Rhabdomyolysis: Plan: 2nd to fall at home? son did state she was found on the floor at home once; uncertain how much time she was on floor and the details of whether it was a fall, etc. 2nd to statin? improved CPK hold statin until d/c (19) Hypomagnesemia: Plan: replaced resolved (20) Type II diabetes mellitus: Plan: Sliding scale coverage w/ novolog only last a1c was <6% in 08/2022 controlled (21) DVT prophylaxis: Plan: coumadin daily INR Plan spoke with pt's son by phone again today extensive update given to him he previously expressed concerns about her living alone, and that his family cannot continue to provide the care she needs as he has young children, he works FT, etc further, it appears her son is currently hospitalized? PT, OT, speech evals appreciated cont taran dietrich await EEG dispo - uncertain Admission and Anticipated Discharge Date Admission Date: January 09, 2023 Subjective patient feeling well eating well converted from a.fib to NSR late yesterday pm denies any complaints shakiness improved; no tremors/jerks of arms no dyspnea no cp, orthopnea, abd pain Review of Systems Review of Systems: gen - no fevers cv - no chest pain pulm - no cough or dyspnea or STOUT - since martinez removal she has voided GI - no nausea/vomiting psych - asks for sleep aid; not able to fall asleep Physical Exam Physical Exam: gen - awake, alert, oriented x 3 today; looks very good today mouth - MMM neck - no JVD heart - RRR, s1 s2 lungs - CTA b/l, no wheezing, no rales abd - soft NT ND BS+ ext - no edema b/l, pulses 2+ b/l psych - oriented x 3 neuro - no tremors or myoclonus today Results & Data Results & Data ([facility]) Vital Signs (Past 12 Hours) Vital Signs Temp Pulse Resp BP Pulse Ox O2 Del Method 01/12/23 19:45 36.7 C 65 18 145/83 H 96 Room Air 01/12/23 15:30 36.8 C 75 18 162/81 H 96 Room Air 01/12/23 11:35 36.8 C 73 20 141/79 H 98 Room Air Laboratory Results Laboratory Results - last 24 hr 01/09/23 01/12/23 01/12/23 20:20 06:48 06:48 WBC 8.07 RBC 2.24 L Hgb 7.6 L Hct 22.7 L MCV 101.3 H MCH 33.9 MCHC 33.5 RDW Std Deviation 58.7 H RDW Coeff of Cheri 15.7 H Plt Count 200 MPV 10.1 Immature Gran % (Auto) 1.1 Neut % (Auto) 65.8 Lymph % (Auto) 17.6 Borden % (Auto) 10.9 Eos % (Auto) 3.7 Baso % (Auto) 0.9 Neut # (Auto) 5.31 Lymph # (Auto) 1.42 Borden # (Auto) 0.88 H Eos # (Auto) 0.30 Baso # (Auto) 0.07 Immature Gran # (Auto) 0.09 Polychromasia 1+ PT INR Sodium 143 Potassium 3.8 Chloride 111 H Carbon Dioxide 29 Anion Gap 3 BUN 27 H Creatinine 1.48 H D Est Cr Clr Drug Dosing 35.4 Est GFR ( Amer) 41.2 Est GFR (Non-Af Amer) 35.5 BUN/Creatinine Ratio 18.2 Glucose 97 POC Glucose Calcium 7.6 L Magnesium 1.8 Iron TIBC Unsaturated IBC Transferrin % Sat Ferritin Total Creatine Kinase U Codeine Confrm GC/MS NEGATIVE Ur Morphine (GC/MS) NEGATIVE Ur Hydrocodone (GC/MS) NEGATIVE Ur Norhydrocodone NEGATIVE Ur Noroxycodone NEGATIVE Urine Oxycodone (GC/MS) NEGATIVE U Oxymorphone GC/MS NEGATIVE Ur Hydromorphone (GC/MS) 6330 H Drug Screen Comment SEE NOTE 01/12/23 01/12/23 01/12/23 06:48 07:03 09:28 WBC RBC Hgb Hct MCV MCH MCHC RDW Std Deviation RDW Coeff of Cheri Plt Count MPV Immature Gran % (Auto) Neut % (Auto) Lymph % (Auto) Borden % (Auto) Eos % (Auto) Baso % (Auto) Neut # (Auto) Lymph # (Auto) Borden # (Auto) Eos # (Auto) Baso # (Auto) Immature Gran # (Auto) Polychromasia PT 19.9 H INR 1.9 H Sodium Potassium Chloride Carbon Dioxide Anion Gap BUN Creatinine Est Cr Clr Drug Dosing Est GFR ( Amer) Est GFR (Non-Af Amer) BUN/Creatinine Ratio Glucose POC Glucose 99 Calcium Magnesium Iron 34 L TIBC 217 L Unsaturated IBC 183 Transferrin % Sat 16 Ferritin 219.7 Total Creatine Kinase 421 H U Codeine Confrm GC/MS Ur Morphine (GC/MS) Ur Hydrocodone (GC/MS) Ur Norhydrocodone Ur Noroxycodone Urine Oxycodone (GC/MS) U Oxymorphone GC/MS Ur Hydromorphone (GC/MS) Drug Screen Comment 01/12/23 01/12/23 01/12/23 11:29 16:16 20:05 WBC RBC Hgb Hct MCV MCH MCHC RDW Std Deviation RDW Coeff of Cheri Plt Count MPV Immature Gran % (Auto) Neut % (Auto) Lymph % (Auto) Borden % (Auto) Eos % (Auto) Baso % (Auto) Neut # (Auto) Lymph # (Auto) Borden # (Auto) Eos # (Auto) Baso # (Auto) Immature Gran # (Auto) Polychromasia PT INR Sodium Potassium Chloride Carbon Dioxide Anion Gap BUN Creatinine Est Cr Clr Drug Dosing Est GFR ( Amer) Est GFR (Non-Af Amer) BUN/Creatinine Ratio Glucose POC Glucose 138 H 104 H 85 Calcium Magnesium Iron TIBC Unsaturated IBC Transferrin % Sat Ferritin Total Creatine Kinase U Codeine Confrm GC/MS Ur Morphine (GC/MS) Ur Hydrocodone (GC/MS) Ur Norhydrocodone Ur Noroxycodone Urine Oxycodone (GC/MS) U Oxymorphone GC/MS Ur Hydromorphone (GC/MS) Drug Screen Comment PG Care Time/CCT Total # of Minutes Spent Total Time Spent with Patient: Total time spent is greater than 50% in coordination of care (as documented) at patient's floor/unit and/or counseling patient: Coding Level of Care Code 97019 SUB INP/OBS CARE 3/50MIN Diagnoses Atrial fibrillation with RVR I48.91 Acute metabolic encephalopathy G93.41 Acute kidney injury N17.9 Muscle weakness M62.81 Metabolic acidosis E87.20 Abnormal chest xray R93.89 Left ventricular apical thrombus I51.3 Cancer related pain G89.3 Hypertension I10 Subarachnoid hemorrhage I60.9 Embolic stroke I63.9 Cardiomyopathy I42.9 Depression with anxiety F41.8 Hyperlipidemia E78.5 History of breast cancer Z85.3 Macrocytic anemia D53.9 Muscle, jerky movements (uncontrolled) G25.5 Rhabdomyolysis M62.82 Rhabdomyolysis type: non-traumatic Hypomagnesemia E83.42 Type II diabetes mellitus E11.9 DVT prophylaxis Z29.9 (18) Rhabdomyolysis Rhabdomyolysis type: non-traumatic Qualified Code(s): M62.82 - Rhabdomyolysis
[2023-01-13] MEDS: AMIODARONE / D5W 360 MG/200 ML BAG IV SCH (04:59)
[2023-01-13 07:28] LABS: Hematocrit (blood only) 26.2 % (37.0-47.0); Hemoglobin 8.7 g/dl (12.0-16.0); Mean Corpuscular Hemoglobin 33.3 pg (25.0-34.0); Mean Corpuscular Hgb Conc 33.2 g/dL (32.0-36.0); Mean Corpuscular Volume 100.4 fL (80.0-100.0); Mean Platelet Volume 10.1 fL (9.4-12.4); Platelet Count 243 K/uL (130-400); RDW Coefficient of Variation 15.5 % (11.5-14.5); RDW Standard Deviation 57.1 fL (36.4-46.3); Red Blood Count 2.61 M/uL (4.20-5.40); White Blood Count 8.75 K/ul (4.8-10.8)
[2023-01-13 07:45] LABS: BUN Creatinine Ratio 14.6 (10-20); Calcium 7.8 mg/dl (8.5-10.1); Creatinine Clr Calc Pharmacy 42.8 ml/min; Est GFR (African American) 51.5 ml/min; Est GFR (Non-African American) 44.4 ml/min; Potassium 4.2 mmol/L (3.5-5.1)
[2023-01-13 07:52] LABS: INR 1.8 (0.9-1.1); Prothrombin Time 18.6 Seconds (9.0-12.0)
[2023-01-13] MEDS: VENLAFAXINE HCL XR 150 MG CAPXR PO SCH (07:58)
[2023-01-13] MEDS: PANTOprazole 40 MG TAB PO SCH (07:58)
[2023-01-13] MEDS: CALCIUM 600MG + VIT D 400 IU TAB PO SCH (07:58)
[2023-01-13] MEDS: GABAPENTIN 300 MG CAP PO SCH ×3 (07:58→19:46)
[2023-01-13] MEDS: AMIODARONE 200 MG TAB PO SCH ×2 (07:58→16:30)
[2023-01-13] MEDS: ANASTROZOLE 1 MG TAB PO SCH (07:58)
[2023-01-13] MEDS: ROSUVASTATIN CALCIUM 5 MG TAB PO SCH (07:59)
[2023-01-13] MEDS: METOPROLOL SUCC 25MG EXT REL TAB PO SCH (07:59)
[2023-01-13] MEDS: clonazePAM 1 MG TAB PO SCH ×3 (08:05→19:46)
[2023-01-13] MEDS ORDERED: IRON SUCROSE 300 MG in SODIUM CHLORIDE 0.9% 250 ML IV SCH (08:30)
[2023-01-13] MEDS: INSULIN ASPART PER UNIT SC SCH ×4 (09:22→21:50)
[2023-01-13] MEDS ORDERED: WARFARIN SOD 5 MG TAB PO ONE (10:42)
--- NOTE | 2023-01-13 11:10 | Cardiology Progress Note ---
Date of Service January 13, 2023 Assessment & Plan (1) Atrial fibrillation with RVR: (2) Cardiomyopathy: (3) Left ventricular apical thrombus: Plan 1. Atrial fibrillation: She is maintaining sinus rhythm. I think would be reasonable discontinue the amiodarone infusion today. Continue oral amiodarone. Repeat EKG can be obtained later today to check on the QTC. Fortunately proarrhythmia is less, with amiodarone even in the setting prolonged QTC. Warfarin has been restarted. 2. Cardiomyopathy: Resolved. 3. Left ventricular thrombus: Resolved. Continue warfarin anticoagulation. 4. Aortic regurgitation: Mild to moderate. Admission and Anticipated Discharge Date Admission Date: January 09, 2023 Subjective This morning patient claimed he feeling much better. She states that her thinking is clear and her overall strength appears improved. She was ambulatory with physical therapy and is anxious for discharge possibly tomorrow. No sense of palpitation. She did not describe significant breathing difficulty or dizziness. Review of Systems Review of Systems: Per HPI Physical Exam Physical Exam: She is alert and oriented x3. Mood affect appear normal. She answered all questions appropriately. HEENT: Sclerae are anicteric. Pupils are equal and reactive to light and accommodation. Extraocular movements were intact. Neuro: Cranial nerves intact Lungs: Lungs are clear to auscultation bilaterally. There are no rales wheezes or rhonchi. She has normal respiratory effort without use of accessory muscles. There is normal pulmonary excursion. Cardiac: The rhythm was regular. S1 and S2 were normal. There are no murmurs on examination. The PMI was not markedly displaced on palpation. Extremities: Patient has bilateral radial pulses that are equal in intensity. There is no evidence cyanosis or clubbing. Skin: There are no rashes noted on examination today. Results & Data ([facility]) Vital Signs (Past 12 Hours) Vital Signs Temp Pulse Pulse Resp BP Pulse Ox O2 Del Method 01/13/23 08:00 63 01/13/23 07:41 36.5 C 65 20 154/90 H 96 Room Air 01/13/23 04:00 36.4 C L 64 17 143/76 H 96 Room Air Laboratory Results Abnormal Lab Results 01/12/23 01/12/23 01/12/23 11:29 16:16 20:05 WBC RBC Hgb Hct MCV MCH MCHC RDW Std Deviation RDW Coeff of Cheri Plt Count MPV PT INR Sodium Potassium Chloride Carbon Dioxide Anion Gap BUN Creatinine Est Cr Clr Drug Dosing Est GFR ( Amer) Est GFR (Non-Af Amer) BUN/Creatinine Ratio Glucose POC Glucose 138 H 104 H 85 Calcium 01/13/23 01/13/23 01/13/23 07:04 07:04 07:04 WBC 8.75 RBC 2.61 L Hgb 8.7 L Hct 26.2 L MCV 100.4 H MCH 33.3 MCHC 33.2 RDW Std Deviation 57.1 H RDW Coeff of Cheri 15.5 H Plt Count 243 MPV 10.1 PT 18.6 H INR 1.8 H Sodium 142 Potassium 4.2 Chloride 108 H Carbon Dioxide 28 Anion Gap 6 BUN 18 Creatinine 1.23 H Est Cr Clr Drug Dosing 42.8 Est GFR ( Amer) 51.5 Est GFR (Non-Af Amer) 44.4 BUN/Creatinine Ratio 14.6 Glucose 90 POC Glucose Calcium 7.8 L 01/13/23 07:24 WBC RBC Hgb Hct MCV MCH MCHC RDW Std Deviation RDW Coeff of Cheri Plt Count MPV PT INR Sodium Potassium Chloride Carbon Dioxide Anion Gap BUN Creatinine Est Cr Clr Drug Dosing Est GFR ( Amer) Est GFR (Non-Af Amer) BUN/Creatinine Ratio Glucose POC Glucose 89 Calcium Diagnostic Findings Echocardiogram performed 01/10/2013: Normal LV systolic function with ejection fraction 50-55%. Mild LVH. Mild to moderate aortic insufficiency. No left ventricular thrombus. PG Care Time/CCT Total # of Minutes Spent Total Time Spent with Patient: Total time spent is greater than 50% in coordination of care (as documented) at patient's floor/unit and/or counseling patient: Coding Level of Care Code 22812 SUB INP/OBS CARE 2/35MIN Diagnoses Atrial fibrillation with RVR I48.91 Cardiomyopathy I42.9 Left ventricular apical thrombus I51.3
--- NOTE | 2023-01-13 18:52 | XRay Report ---
XR tibia fibula LT 2V CLINICAL HISTORY: mid tibial pain w/ walking COMPARISON STUDY: None. FINDINGS: No fracture or dislocation within the left tibia or fibula. Soft tissues are unremarkable. No radiopaque foreign bodies. Mild osteoarthritis within the left knee. IMPRESSION: No fractures within the left lower leg. ACT 112: Negative or not required by law. Electronically signed by: Freddy New M.D. 01/13/2023 6:50 PM
[2023-01-13] MEDS: clonazePAM 0.5 MG TAB PO SCH (19:46)
[2023-01-13] MEDS: MELATONIN 3 MG TAB PO SCH (19:46)
--- NOTE | 2023-01-14 06:31 | Hospitalist Progress Note ---
Date of Service January 13, 2023 Assessment & Plan (1) Atrial fibrillation with RVR: Plan: Resolved. Converted from rapid a.fib to NSR late 01/11/23 s/p amiodarone bolus/infusion. Again had poor rate response to PO metoprolol + cardizem infusion. Further, SBPs were low-normal while on AV yadira agents. Records from her recent stay at [facility] indicate she ultimately needed amiodarone infusion for her rapid a.fib she experienced there. Echo from this admission with EF 50-55%. Formal consult obtained with Dr Cloud from [facility]. Dr Russell saw her in f/u today. Although QTc is mildly prolonged she has poor response to AV yadira agents and options are limited. Can stop amiodarone infusion today. Cont amiodarone 200mg PO BID. INR today 1.8 -- give coumadin 5mg po x 1 once again. INR am. INR goal 2-3. Discussed options for coumadin care. In light of complex medical history, ?etoh use, amiodarone use, high INR upon admission (had only been home a few days and INR was already supratherapeutic), etc -- advised referral to [facility] Anticoagulation clinic. She is agreeable. Will make referral. She was sent home from [facility] with coumadin 5mg daily. Suspect she will not need that amount - perhaps 5mg 2-3 times each week with lower dose on other days. Exact total weekly dose uncertain since she is so new to coumadin. (2) Acute metabolic encephalopathy: Plan: fully resolved. a/o x 3. likely 2nd to acute renal failure and acidosis from such. mild hypercapnea noted on blood gas as well which would have contributed. after speaking with her son it appears she took at least 3 tabs of 8mg dilaudid orally at home thus toxic encephalopathy also possible. gabapentin may have caused confusion at home given the large dose she was taking. can't rule out misuse of clonazepam but doubt. no infectious process found -- urine cx neg, no distinct pneumonia on cxr, and blood cx's neg. abx stopped. (3) Acute kidney injury: Plan: ARNALDO on CKD. Per records when she left [facility] her creatinine was low 3's. (she had required HD a few days at [facility] during her prolonged stay there) While at [facility] records suggest creatinine had improved to about 2. Presented with Cr of 5.46. Differential - rhabdomyolysis vs hypovolemia vs ATN vs obstructive vs other. Renal u/s - NO obstruction. ARNALDO resolved -- Creatinine now 1.2 today. BMP am. [place] has been d/c. (4) Muscle weakness: Plan: Likely multifactorial - hypomagnesemia, hypocalcemia, ARNALDO, critical illness myopathy, active rhabdomyolysis, prior strokes, deconditioning, etc. IMPROVING. She has now been cleared by PT/OT to return home. Pt lives next door to [facility] in [place] - wants to go there for PT/OT after d/c. CPK nearly normal on most recent check. TSH/cortisol wnl. No infectious process found. Cont Pt/Ot. (5) Metabolic acidosis: Plan: 2nd to acute renal failure. resolved. (6) Abnormal chest xray: Plan: LLL opacity on admission cxr. Records from here in 11/2022 show she had RLL MSSA pneumonia. Records from [place] state her pneumonia was b/l. clinically does not appear to have pneumonia. no pulmonary symptoms. abx stopped. (7) Left ventricular apical thrombus: Plan: diagnosed 11/2022 here at [facility] records indicate at [place] that thrombus improved in size while at their medical center repeat echo here - thrombus resolved INR 1.8 today - coumadin 5mg x 1 INR am see #[address] Barreto at [facility]tico[facility] for management - pt is high risk for fluctuating INRs (8) Cancer related pain: Plan: Known metastatic breast ca with mets to bone Decrease her gabapentin to daily dosing from TID dosing due to ARNALDO can likely up-titrate her dose once renal function improves further Of note - I reviewed her [facility] records and based on what I can see her dila udid was stopped/weaned off while rehabbing there However, her son confirms she took 3 tabs of Dilaudid at home (this was left over from old prescription - PDMP shows last refill was 10/2022) This had been previously prescribed by palliative care Holding dilaudid at this time - would not prescribe at discharge she has not c/o bone pain the entire hospital stay (9) Hypertension: Plan: cont BB hold ARB but can likely resume at discharge (10) Subarachnoid hemorrhage: Plan: discovered 12/05/22 at [facility] this never needed intervention at [place] by neurosurgery appears resolved on CT head 01/09/23 (11) Embolic stroke: Plan: 12/05/22 at [facility] - MRI brain at that time showed strokes in the right occipital lobe, right thalamus, right temporal lobe, right cerebellar hemisphere, high right frontal parietal cortex, high left parietal cortex, and a punctate stroke in the left occipital cortex. Presumed embolic from her LV thrombus. Her strokes were associated with SAH over the right brain. Again she was ultimately transferred to [facility]. Now on coumadin for her LV thrombus and h/o strokes along with PAF. (12) Cardiomyopathy: Plan: Early November 2022 discovered to have severe cardiomyopathy with EF 25-30% and large LV thrombus. During her stay at [facility] her LV function improved. Records suggest it climbed back to 60% EF. Echo here this admission - EF 50-55%, thrombus no longer seen. Cont BB Hold ARB but resume at discharge Again no evidence of volume overload. appreciate cardiology consultation (13) Depression with anxiety: Plan: Was on clonazepam 1mg TID at home along with Effexor 225mg daily. Effexor is chronic dating back to at least early 2021. PDMP shows she has been on clonazepam at least since early 2020. resumed effexor 150mg; holding 75mg dose resumed clonazepam 1mg TID; giving additional 0.5mg at HS for sleep but it has not helped consider psych referral post d/c for med management, insomnia, etc - especially since QTc is prolonged and medication options are more limited (14) Hyperlipidemia: Plan: HOLDING statin due to recent rhabdomyolysis. This is her 2nd episode of rhabdo since November -- CONSIDER NOT RESUMING STATIN AT DISCHARGE. (15) History of breast cancer: Plan: b/l, with b/l mastectomies. recurrence with known bone mets. palliative care follows as outpatient for pain management. hold dilaudid at this time. cont anastrozole 1mg daily ibrance was placed on hold upon d/c from [place], and records from [facility] show it was not continued there either. (16) Macrocytic anemia: Plan: TSH wnl Previous B12 level very robust Folate level wnl did receive PRBCs 1 unit while at [place] Hb was about the 8 while at [place] Hb 8.7 today Fe studies noted (transferring sat 16%) IV venofer 300mg x 1 today H/H in am for stability (17) Muscle, jerky movements (uncontrolled): Plan: left arm at time of admission focal myoclonus ? focal seizure ? given her known extensive right sided CVAs she is at risk of seizure. obtain EEG. still pending but I corresponded with neurology and this will be done AM OF 01/14/23 since admission, however, the movements HAVE resolved (18) Rhabdomyolysis: Plan: 2nd to fall at home? son did state she was found on the floor at home once; uncertain how much time she was on floor and the details of whether it was a fall, etc. 2nd to statin? improved CPK Again - 2nd episode of rhabdomyolysis since November - CONSIDER HOLDING STATIN at DISCHARGE (19) Hypomagnesemia: Plan: replaced resolved (20) Type II diabetes mellitus: Plan: Sliding scale coverage w/ novolog only last a1c was <6% in 08/2022 controlled (21) DVT prophylaxis: Plan: coumadin daily INR (22) Left leg pain: Plan: etiology?? check tib-fib x-rays check venous duplex study (DVT risk very low, but she states the pain started while at [place] and I don't know if this pain started before the initiation of anticoagulation while at [place]) re-eval after these tests are done Plan spoke with pt's son by phone again today extensive update given to him he previously expressed concerns about her living with his family; he stated his family could not provide the care she needed as he has young children, he works FT, etc over the weekend the patient & her son "were not talking" but patient today stated they have patched up this rift patient and her son now stating that the plan for discharge home is acceptable she does remain at HIGH RISK of readmission plan - nursing; PT/OT at [facility] in [place]; coumadin clinic referral with Dr Barreto Admission and Anticipated Discharge Date Admission Date: January 09, 2023 Subjective patient c/o left gibson pain - about 1/2 way down the gibson - starting while at [facility] a few weeks ago?? she doesn't recall if anything was ever checked for it she doesn't have much pain at rest - mainly with weight-bearing doesn't recall any injury mild calf pain as well no thigh pain otherwise feeling good and anxious to go home we had a discussion about obtaining home health nursing at discharge had "Bad experience" with a specific agency - is willing to try a different agency we discussed the value of nursing in light of complicated/prolonged medial issues over the last 2-3 months and her very fast re-admission to [facility] after d/c from [facility] she continues to say "I don't know what happened when I got home..." eating well drinking ok did not have EEG yet no shaking/tremors of either arm despite melatonin/added clonazepam at HS she only slept a few hours tele overnight - NSR Review of Systems Review of Systems: gen - no fevers, "I feel good" cv - no cp, no orthopnea pulm - no dyspnea, no cough GI - no nausea/emesis; no abd pain Physical Exam Physical Exam: gen - awake, alert, oriented x 3 today; looks very good once again mouth - MMM neck - no JVD heart - RRR, s1 s2 lungs - CTA b/l, no wheezing, no rales abd - soft NT ND BS+ ext - no edema b/l, pulses 2+ b/l psych - oriented x 3 today neuro - no tremors or myoclonus musculo - left gibson - tib/fib without ANY deformity, swelling, redness or tenderness to palpation; the left calf is grossly larger than the right calf but no palpable cords Results & Data Results & Data ([facility]) Vital Signs (Past 12 Hours) Vital Signs Temp Pulse Resp BP Pulse Ox O2 Del Method 01/14/23 04:15 36.6 C 65 18 146/85 H 97 Room Air 01/13/23 22:00 36.6 C 73 18 129/71 95 Room Air 01/13/23 19:48 36.6 C 78 20 156/93 H 95 Room Air Laboratory Results Laboratory Results - last 24 hr 01/13/23 01/13/23 01/13/23 07:04 07:04 07:04 WBC 8.75 RBC 2.61 L Hgb 8.7 L Hct 26.2 L MCV 100.4 H MCH 33.3 MCHC 33.2 RDW Std Deviation 57.1 H RDW Coeff of Cheri 15.5 H Plt Count 243 MPV 10.1 PT 18.6 H INR 1.8 H Sodium 142 Potassium 4.2 Chloride 108 H Carbon Dioxide 28 Anion Gap 6 BUN 18 Creatinine 1.23 H Est Cr Clr Drug Dosing 42.8 Est GFR ( Amer) 51.5 Est GFR (Non-Af Amer) 44.4 BUN/Creatinine Ratio 14.6 Glucose 90 POC Glucose Calcium 7.8 L 01/13/23 01/13/23 01/13/23 07:24 11:19 16:17 WBC RBC Hgb Hct MCV MCH MCHC RDW Std Deviation RDW Coeff of Cheri Plt Count MPV PT INR Sodium Potassium Chloride Carbon Dioxide Anion Gap BUN Creatinine Est Cr Clr Drug Dosing Est GFR ( Amer) Est GFR (Non-Af Amer) BUN/Creatinine Ratio Glucose POC Glucose 89 72 131 H Calcium 01/13/23 21:13 WBC RBC Hgb Hct MCV MCH MCHC RDW Std Deviation RDW Coeff of Cheri Plt Count MPV PT INR Sodium Potassium Chloride Carbon Dioxide Anion Gap BUN Creatinine Est Cr Clr Drug Dosing Est GFR ( Amer) Est GFR (Non-Af Amer) BUN/Creatinine Ratio Glucose POC Glucose 117 H Calcium PG Care Time/CCT Total # of Minutes Spent Total Time Spent with Patient: Total time spent is greater than 50% in coordination of care (as documented) at patient's floor/unit and/or counseling patient: Coding Level of Care Code 81198 SUB INP/OBS CARE 3/50MIN Diagnoses Atrial fibrillation with RVR I48.91 Acute metabolic encephalopathy G93.41 Acute kidney injury N17.9 Muscle weakness M62.81 Metabolic acidosis E87.20 Abnormal chest xray R93.89 Left ventricular apical thrombus I51.3 Cancer related pain G89.3 Hypertension I10 Subarachnoid hemorrhage I60.9 Embolic stroke I63.9 Cardiomyopathy I42.9 Depression with anxiety F41.8 Hyperlipidemia E78.5 History of breast cancer Z85.3 Macrocytic anemia D53.9 Muscle, jerky movements (uncontrolled) G25.5 Rhabdomyolysis M62.82 Rhabdomyolysis type: non-traumatic Hypomagnesemia E83.42 Type II diabetes mellitus E11.9 DVT prophylaxis Z29.9 Left leg pain M79.605 (18) Rhabdomyolysis Rhabdomyolysis type: non-traumatic Qualified Code(s): M62.82 - Rhabdomyolysis
[2023-01-14 06:36] LABS: Hematocrit (blood only) 24.1 % (37.0-47.0)
[2023-01-14 06:48] LABS: BUN Creatinine Ratio 17.8 (10-20); Calcium 7.8 mg/dl (8.5-10.1); Creatinine Clr Calc Pharmacy 48.5 ml/min; Est GFR (African American) 60.9 ml/min; Est GFR (Non-African American) 52.6 ml/min
[2023-01-14 07:06] LABS: INR 2.1 (0.9-1.1); Prothrombin Time 21.3 Seconds (9.0-12.0)
[2023-01-14] MEDS: INSULIN ASPART PER UNIT SC SCH ×2 (08:18→11:44)
--- NOTE | 2023-01-14 08:58 | Ultrasound Report ---
LEFT LOWER EXTREMITY VENOUS DOPPLER CLINICAL HISTORY: pain in calf/leg with walking COMPARISON STUDY: Bilateral lower extremity venous Doppler ultrasound January 07, 2022. TECHNIQUE: Sonography of the deep venous system of the left lower extremity was performed. Compressi on and augmentation were evaluated. FINDINGS: The left common femoral, superficial femoral and popliteal veins were compressible. Augmen tation was normal. Flow was shown within the deep calf vessels. IMPRESSION: No evidence of deep venous thrombus within the left lower extremity. ACT 112: Negative or not required by law. Electronically signed by: Hakeem Rico M.D. 01/14/2023 8:57 AM
[2023-01-14] MEDS: clonazePAM 1 MG TAB PO SCH (10:03)
[2023-01-14] MEDS: ANASTROZOLE 1 MG TAB PO SCH (10:03)
[2023-01-14] MEDS: GABAPENTIN 300 MG CAP PO SCH (10:03)
[2023-01-14] MEDS: AMIODARONE 200 MG TAB PO SCH (10:04)
[2023-01-14] MEDS: ROSUVASTATIN CALCIUM 5 MG TAB PO SCH (10:04)
[2023-01-14] MEDS: PANTOprazole 40 MG TAB PO SCH (10:04)
[2023-01-14] MEDS: METOPROLOL SUCC 25MG EXT REL TAB PO SCH (10:04)
[2023-01-14] MEDS: CALCIUM 600MG + VIT D 400 IU TAB PO SCH (10:05)
[2023-01-14] MEDS: VENLAFAXINE HCL XR 150 MG CAPXR PO SCH (10:05)
--- NOTE | 2023-01-14 12:14 | Discharge Summary ---
Date of Service January 14, 2023 Admission HPI Per Admitting Provider 72 YOF with recently complex medical history over the past few months. Patient with previous history of: SAH, CVA, Afib, metastatic bone cancer pain, pneumonia, HTN, CKD, HLD, Ventricular thrombus (on warfarin), DM. Patient presents to the emergency room today lethargic and complaints of increased lower extremity weakens. Patient states that this has been going on for the past few days and she recently just got back home from her stay at rehab facility following critical care admission in Nov for metabolic encephalopathy/septic shock and noted to go into AFIB as well as have ventricular thrombus/septic em boli not excluded. Following ICU stay patient was on medical telemetry floor where she was found to have acute CVA embolic with concern for SAH, and was transferred to [facility]. At [facility] patient was noted to be hypotensive as well as concern for vancomycin toxicity, and had short course treatment of IHD. 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 Patient was given 3 liters of crystalloid and Hospitalist service was consulted for admission. Patient mentation has improved since receiving fluids and BP is remaining with adequate MAPS at this time. Electrolytes are being replaced to include Mag and K, her Potassium is decreasing. Her INR is supratherapeutic at this time- she states that she just started her warfarin yesterday. Overall patient may have left side pneumonia which will continue treatment for, UA navarro contaminated, noted elevation of her CK and renal function. Continue with IVF support and follow hemodynamics. If needed for hemodyanmic support transfer to ICU for vasoactive support. COVID test on admission is: NEGATIVE Principal Diagnosis Recurrent atrial fibrillation with rapid ventricular rate, acute on chronic kidney disease, metabolic encephalopathy, known left ventricular thrombus Discharge Exam General-alert and oriented x3, no fevers, no chills HEENT-head atraumatic and normocephalic, pupils equal and reactive to light, extraocular muscles intact Neck-no lymphadenopathy or thyromegaly, trachea midline Chest-clear to auscultation percussion. No rales wheezing or rhonchi Cardiac-regular rate and rhythm, normal S1 and S2 Abdomen-normal bowel sounds, nontender, no hepatosplenomegaly Extremities-no cyanosis, clubbing, or edema Neuro-cranial nerves II through XII intact, motor and sensory function within normal limits, strength symmetrical , no focal deficits Psych-normal affect, normal mood Discharge Data Allergies Allergy/AdvReac Type Severity Reaction Status Date / Time fentanyl AdvReac Severe Hallucinati Verified 01/09/23 21:28 on Consultations 01/09/23 21:06 ED Decision to Admit Stat 01/12/23 09:59 Consult Cardiology Routine Ordered Studies 01/09/23 19:22 CT head/brain wo con Stat 01/10/23 09:27 US Renal Bladder [US renal/blad retro comp] Routine 01/14/23 16:24 US venous doppler LE LT Routine Hospital Course (1) Atrial fibrillation with RVR: Resolved. Converted from rapid a.fib to NSR late 01/11/23 s/p amiodarone bolus/infusion. Again had poor rate response to PO metoprolol + cardizem infusion. Further, SBPs were low-normal while on AV yadira agents. Records from her recent stay at [facility] indicate she ultimately needed amiodarone infusion for her rapid a.fib she experienced there. Echo from this admission with EF 50-55%. Formal consult obtained with Dr Cloud from [facility]. Dr Russell saw her in f/u today. Although QTc is mildly prolonged she has poor response to AV yadira agents and options are limited. Can stop amiodarone infusion today. Cont amiodarone 200mg PO BID. INR now 2.1. INR am. INR goal 2-3. Discussed options for coumadin care. In light of complex medical history, ?etoh use, amiodarone use, high INR upon admission (had only been home a few days and INR was already supratherapeutic), etc -- referred to [facility] Anticoagulation clinic. She was sent home from [facility] with coumadin 5mg daily. (2) Acute metabolic encephalopathy: fully resolved. a/o x 3. likely 2nd to acute renal failure and associated acidosis mild hypercapnea noted on blood gas as well which would have contributed. after speaking with her son it appears she took at least 3 tabs of 8mg dilaudid orally at home thus toxic encephalopathy also possible. gabapentin may have caused confusion at home given the large dose she was taking. can't rule out misuse of clonazepam but doubt. no infectious process found -- urine cx neg, no distinct pneumonia on cxr, and blood cx's neg. abx stopped. (3) Acute kidney injury: ARNALDO on CKD. Per records when she left [facility] her creatinine was low 3's. (she had required HD a few days at [facility] during her prolonged stay there) While at [facility] records suggest creatinine had improved to about 2. Renal u/s - NO obstruction. ARNALDO resolved. (4) Muscle weakness: Likely multifactorial - hypomagnesemia, hypocalcemia, ARNALDO, critical illness myopathy, active rhabdomyolysis, prior strokes, deconditioning, etc. IMPROVed. She has been cleared by PT/OT to return home. Pt lives next door to [facility] in [place] - wants to go there for PT/OT after d/c. CPK nearly normal on most recent check. TSH/cortisol wnl. No infectious process found. Cont Pt/Ot. (5) Metabolic acidosis: 2nd to acute renal failure. Resolved. (6) Abnormal chest xray: LLL opacity on admission cxr. Records from here in 11/2022 show she had RLL MSSA pneumonia. Records from [place] state her pneumonia was b/l. clinically does not appear to have pneumonia. no pulmonary symptoms. abx have been stopped. (7) Left ventricular apical thrombus: diagnosed 11/2022 here at [facility] records indicate at [place] that thrombus improved in size while at their medical center repeat echo here - thrombus resolved INR 2.1 INR am see #[address] Barreto at [facility] for management - pt is high risk for fluctuating INRs (8) Cancer related pain: Known metastatic breast ca with mets to bone. Temporarily decreased her gabapentin to daily dosing from TID dosing due to ARNALDO. Dosage now return to her usual dosage. Of note - I reviewed her [facility] records and based on what I can see her dilaudid was stopped/weaned off while rehabbing there However, her son confirms she took 3 tabs of Dilaudid at home (this was left over from old prescription - PDMP shows last refill was 10/2022) This had been previously prescribed by palliative care Holding dilaudid at this time - will not prescribe at discharge she has not c/o bone pain the entire hospital stay (9) Hypertension: cont BB. Held ARB during hospitalization but resumed at discharge (10) Subarachnoid hemorrhage: discovered 12/05/22 at [facility]. This never needed intervention at [place] by neurosurgery. Appears resolved on CT head 01/09/23 (11) Embolic stroke: 12/05/22 at [facility] - MRI brain at that time showed strokes in the right occipital lobe, right thalamus, right temporal lobe, right cerebellar hemisphere, high right frontal parietal cortex, high left parietal cortex, and a punctate stroke in the left occipital cortex. Presumed embolic from her LV thrombus. Her strokes were associated with SAH over the right brain. Now on coumadin for her LV thrombus and h/o strokes along with PAF. (12) Cardiomyopathy: Early November 2022 discovered to have severe cardiomyopathy with EF 25-30% and large LV thrombus. During her stay at [facility] her LV function improved. Records suggest it has improved to 60% EF. Echo here this admission - EF 50-55%, thrombus no longer seen. Cont BB Hold ARB while hospitalized but resume at discharge Again no evidence of volume overload. appreciate cardiology consultation (13) Depression with anxiety: Was on clonazepam 1mg TID at home along with Effexor 225mg daily. Effexor is chronic dating back to at least early 2021. PDMP shows she has been on clonazepam at least since early 2020. Resumed effexor 150mg; holding 75mg dose. resumed clonazepam 1mg TID; giving additional 0.5mg at HS for sleep but it has not helped consider psych referral post d/c for med management, insomnia, etc - especially since QTc is prolonged and medication options are more limited (14) Hyperlipidemia: Discontinue statin due to recent rhabdomyolysis. This is her 2nd episode of rhabdo since November . Will not resume statin at discharge. (15) History of breast cancer: b/l, with b/l mastectomies. Recurrence with known bone mets. Palliative care follows as outpatient for pain management. No dilaudid at this time. Cont anastrozole 1mg daily. Ibrance was placed on hold upon d/c from [place], and records from [facility] show it was not continued there either. (16) Macrocytic anemia: TSH wnl. Previous B12 level very robust. Folate level wnl . She did receive PRBCs 1 unit while at [place] Fe studies noted (transferring sat 16%) IV venofer given this admission. (17) Muscle, jerky movements (uncontrolled): left arm at time of admission . Now resolved. Focal myoclonus ? She refused EEG procedure while hospitalized. Her PCP can determine whether this is necessary on an outpatient basis. (18) Rhabdomyolysis: 2nd to fall at home? Could be due to statin therapy. Now resolved. Will discontinue statin therapy indefinitely (19) Hypomagnesemia: Corrected. Resolved (20) Type II diabetes mellitus: Sliding scale coverage w/ novolog. ADA diet. Last a1c was <6% in 08/2022. Controlled (21) DVT prophylaxis: coumadin daily INR (22) Left leg pain: Uncertain etiology. No fracture seen on x-rays. Venous duplex study negative for DVT. Plan Discharge to home today with home health services, January 14 . PT/OT at [facility] in [place]. Coumadin clinic referral with Dr Barreto Total Time Total Time Spent Total Time Spent (In Minutes): 40 minutes Discharge Plan Discharge Items Patient Disposition: Home - Home Health Services Reason For Visit: METABOLIC ENCEPHALOPATHY/ACIDOSIS Discharge Diagnosis: Recurrent atrial fibrillation with rapid ventricular rate, acute on chronic kidney disease, metabolic encephalopathy, Activity: Resume your previous activity Non-emergency contact: Primary Care Provider Call non-emergency contact if: you have any medication questions Follow-up/Referrals: Judie Ojeda CRNP [Primary Care Provider] - Diet: Carb Consistent or DM2 and Heart Healthy Addtl Attending Provider Instructions: Amiodarone is a new medication. Follow-up with Coumadin clinic for INR measurements and Coumadin management Pending Studies at Discharge: No Stand-Alone Forms: My [facility] [employer], Smoking Cessation Medications and DC Order Prescriptions: New amiodarone 200 mg Tablet 200 mg PO BIDM Qty: 30 0RF Continued losartan 100 mg tablet 100 mg PO QAM Qty: 90 3RF omeprazole 20 mg capsule,delayed release(DR/EC) 20 mg PO QAM Qty: 90 3RF venlafaxine 150 mg capsule,extended release 24hr 150 mg PO QAM Qty: 90 3RF Rx Instructions: Take with 75mg capsule to = 225mg total daily dose. rosuvastatin 5 mg tablet 5 mg PO DAILY Qty: 90 3RF clonazepam 1 mg tablet 1 mg PO TID Qty: 90 1RF acetaminophen 325 mg tablet 650 mg PO Q6H PRN (Reason: pain, mild) anastrozole 1 mg tablet 1 mg PO QAM Rx Instructions: LAST FILLED 10/31/22 FOR 30 DAYS/30 TABS. multivitamin with minerals Capsule 1 cap PO QAM cholecalciferol (vitamin D3) 50 mcg (2,000 unit) capsule 50 mcg PO QAM hydromorphone 8 mg tablet 4 mg PO Q4 PRN (Reason: Pain, Severe) Rx Instructions: 1/2 tablet dose Ibrance 1 dose PO DIRECTED Rx Instructions: take daily for 3 weeks then off for 1 week magnesium 250 mg Tablet 250 mg PO DAILY calcium carbonate-vitamin D3 [Calcium 600 + D(3)] 600 mg-10 mcg (400 unit) Tablet 1 tab PO QAM venlafaxine 75 mg capsule,extended release 24hr 75 mg PO QAM Rx Instructions: Take with 150mg capsule to = 225mg daily dose metoprolol succinate 50 mg tablet extended release 24 hr 50 mg PO DAILY cephalexin 500 mg capsule 500 mg PO BID Rx Instructions: STARTED 01/07/23 FOR 5 DAYS. warfarin 5 mg tablet 5 mg PO QPM gabapentin 300 mg capsule 600 mg PO TID Discharge Orders: Discharge Order (Routine); Ordered 01/14/23 Ordered By: Baltazar Avila Admission Data Admit Date/Time: 01/09/23 21:51 Attending Provider: Baltazar Avila Admit Provider: Flavio Hogue Primary Care Provider: Judie Ojeda Other Providers: Flavio Hogue ; Marvin Cloud Coding Level of Care Code HOSP INP/OBS DISCH >30 MIN Diagnoses Atrial fibrillation with RVR I48.91 Acute metabolic encephalopathy G93.41 Acute kidney injury N17.9 Muscle weakness M62.81 Metabolic acidosis E87.20 Abnormal chest xray R93.89 Left ventricular apical thrombus I51.3 Cancer related pain G89.3 Hypertension I10 Subarachnoid hemorrhage I60.9 Embolic stroke I63.9 Cardiomyopathy I42.9 Depression with anxiety F41.8 Hyperlipidemia E78.5 History of breast cancer Z85.3 Macrocytic anemia D53.9 Muscle, jerky movements (uncontrolled) G25.5 Rhabdomyolysis M62.82 Rhabdomyolysis type: non-traumatic Hypomagnesemia E83.42 Type II diabetes mellitus E11.9 DVT prophylaxis Z29.9 Left leg pain M79.605
[2023-01-14] MEDS ORDERED: WARFARIN SOD 5 MG TAB PO SCH (16:00)
== END 2023-01-14 13:55 | disposition home health service (06) | DRG 682 ==
LOC: ED 19:07 → SUATTDRO 21:51 → EDINP 21:51 → 2S 01-10 01:25